=== PATIENT | female | born 1970 | race Two or more races ===

== ENCOUNTER 2024-08-08 15:53 | Outpatient (REF) | payer MEDICAID, SELFPAY ==
--- OUTSIDE RECORDS SUMMARY | 2024-08-08 15:55 | XMS_ITS | Encounter Summary ---
Author Organization [facility] Address [address] [place] [address] Care Team Providers Care Juice Scaleman Name Role Phone Osiris Sanchez MD Primary Care Provider [phone] Jose Mcguire MD Primary Care Provider Gela Vandana Tovar MD Primary Care Provider [phone] Norman Arita MD Primary Care Provider [phone] Encounter Details Date Type Department Care Team (Late st Contact Info) Description 08/24/2006 Orders Only May Internal Medicine [address] [place] [address] Osiris Sanchez MD [address] [place] [id number] Social History Tobacco Use Types Packs/Day Years Used Date Smoking Tobacco: Never Alcohol Use Standard Drinks/Week Comments No 0 (1 standard drink = 0.6 oz pur e alcohol) Comments No Sex and Gender Information Value Date Recorded Sex Assigned at Female 04/12/2020 8:08 AM EST Legal Sex Female 4:49 AM EDT Gender Identity Female 11/03/2019 2:02 PM EDT Sexual Orientation Straight 04/12/2020 8: 08 AM EST 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 Procedure Name Priority Date/Time Associated Diagnosis Comments LIPID PROFILE + FASTING GLUCOSE Routine 08/24/2006 ROUTINE GENERAL MEDICAL EXAMINATION AT A HEALTH CARE FACILITY NEED FOR PROPHYLACTIC VACCINATION WITH TETANUS-DIPHTHERIA (TD) CBC 5 PART DIFF Routine 08/24/2006 ROUTINE GENERAL MEDICAL EXAMINATION AT A HEALTH CARE FACILITY NEED FOR PROPHYLACTIC VACCINATION WITH TETANUS-DIPHTHERIA (TD) documented in this encounter Results * Due to [place] law, this organization might not be sharing negative HIV tests. * (ABNORMAL) LIPID PROFILE + FASTING GLUCOSE (08/24/2006) CHOLESTEROL, TOTAL 195 125 - 200 MG/DL [facility] (CLIA# [id number]) TRIGLYCERIDES 160(H) 30 - 149 MG/DL [facility] (CLIA# [id number]) Glucose 74 65 - 99 MG/DL [facility] (CLIA# [id number]) HDL-CHOLESTEROL 46 40 - 77 MG/DL [facility] (CLIA# [id number]) LDL-CHOLESTEROL 117 62 - 130 MG/DL [facility] (CLIA# [id number]) Comment: RISK CATEGORY: ??LDL-CHOLESTEROL GOAL CHD AND CHD RISK EQUIVALENTS: ??<100 MULTIPLE (2+) FACTORS: ??<130 ZERO TO ONE RISK FACTOR: ??<160 CHD RELATIVE RISK RATIO (TOTAL/HDL) 4.24 0.0 - 5.0 [facility] (CLIA# [id number]) Comment:(0.9 X AVERAGE) 08/24/2006 08/24/2006 12: 43 PM EDT us Osiris Sanchez MD LABORATORY Final Result [facility] (CLIA# [id number]) [address] [place] [address] * (ABNORMAL) CBC 5 PART DIFF (08/24/2006) WHITE BLOOD COUNT 4.6 3.8 - 10.8 THOUS/UL [facility] (CLIA# [id number]) RBC 4.43 3.80 - 5.10 MIL/UL [facility] (CLIA# [id number]) Hemoglobin 13.3 11.7 - 15.5 G/DL [facility] (CLIA# [id number]) HCT (HEMATOCRIT) 38 35.0 - 45.0 % [facility] (CLIA# [id number]) MCV 85 80.0 - 100.0 FL [facility] (CLIA# [id number]) MCH 30 27.0 - 33.0 PG [facility] (CLIA# [id number]) MCHC 35 32.0 - 36.0 G/DL [facility] (CLIA# [id number]) BAND % 0 0 - 5 % [facility] (CLIA# [id number]) NEUTROPHIL % 45(L) 48 - 75 % [facility] (CLIA# [id number]) LYMPHOCYTE % 41(H) 17 - 40 % [facility] (CLIA# [id number]) MONOCYTE % 10 0 - 14 % [facility] (CLIA# [id number]) EOSINOPHIL % 3 0 - 5 % [facility] (CLIA# [id number]) BASOPHIL % 1 0 - 3 % [facility] (CLIA# [id number]) ATYPICAL LYMPHOCYTE % 0 0 - 5 % [facility] (CLIA# [id number]) PLATELETS 151 140 - 400 THOUS/UL [facility] (CLIA# [id number]) BANDS # 0 0 - 750 CELLS/MCL [facility] (CLIA# [id number]) NEUTROPHILS # 2070 1500 - 7800 CELLS/MCL [facility] (CLIA# [id number]) LYMPHOCYTES # 1886 850 - 3900 CELLS/MCL [facility] (CLIA# [id number]) MONOCYTES # 460 200 - 950 CELLS/MCL [facility] (CLIA# [id number]) EOSINOPHILS # 138 15 - 550 CELLS/MCL [facility] (CLIA# [id number]) BASOPHILS # 46 0 - 200 CELLS/MCL [facility] (CLIA# [id number]) ATYPICAL LYMPHOCYTES # 0 0 - 200 /UL [facility] (CLIA# [id number]) RDW 13.2 11.0 - 15.0 % [facility] (CLIA# [id number]) MPV 9.5 7.5 - 11.5 FL [facility] (CLIA# [id number]) 08/24/2006 08/24/2006 12: 43 PM EDT us Osiris Sanchez MD LAB SAME DAY RESULT Final Resul t [facility] (CLIA# [id number]) [address] [place] [address] documented in this encounter Visit Diagnoses Diagnosis ROUTINE GENERAL MEDICAL EXAMINATION AT A HEALTH CARE FACILITY Routine general medical examination at a health care facility NEED FOR PROPHYLACTIC VACCINATION WITH TETANUS-DIPHTHERIA (TD) Need for prophylactic vaccination with tetanus-diphtheria (Td) documented in this encounter Additional Health Concerns Infection Onset Date Last Indicated Resolved Time COVID-19 Rule-Out 01/13/2020 01/13/2020 01/13/2020 2:43 PM EST COVID-19 Rule-Out 02/22/2020 02/22/2020 02/22/2020 5:30 PM EST COVID-19 Confirmed 02/22/2020 02/22/2020 1 8:12 PM EDT COVID-19 Confirmed 03/09/2021 03/09/2021 2 8:12 PM EDT documented as of this encounter Care Teams Juice Scaleman Relationship Specialty Start Date End Date Osiris Sanchez MD [address] [place] [id number] PCP - General 07/24/06 06/09/15 Jose Mcguire MD PCP - General Internal Medicine 06/10/15 05/19/19 Vandana Pierce MD PCP - General Family Medicine 05/20/19 08/03/20 Norman Arita MD [address] [place] [address] PCP - General Internal Medicine 08/04/20 03/04/22 documented as of this encounter
== END 2024-08-08 15:54 | disposition home or self-care (01) ==
LOC: HO.MAMMO 15:53
PROVIDERS: PCP Internal Medicine; Visit Provider Internal Medicine
DX: Z12.31 Encounter for screening mammogram for malignant neoplasm of breast (principal)
CPT/HCPCS: 77063; 77067

== ENCOUNTER → 2024-08-08 16:15 | Outpatient (BNV) | payer MEDICAID, SELFPAY | PROVIDERS: PCP Internal Medicine; Visit Provider Internal Medicine | DX: Z12.31 Encounter for screening mammogram for malignant neoplasm of breast (principal) | CPT/HCPCS: 77063; 77067 ==

== ENCOUNTER 2024-09-13 10:05 | Outpatient (REF) | payer MEDICAID, SELFPAY ==
--- OUTSIDE RECORDS SUMMARY | 2024-09-13 10:08 | XMS_ITS | Encounter Summary ---
Author Organization [employer] Address [address] [facility] [address] [place] [address] Care Team Providers Care Performance Improvement Coordinator Name Role Phone Tee Thomas MD Primary Care Prov ider Reason for Visit * Reason Onset Date Comments Nurse Triage 07/14/2024 Encounter Details Date Type Department Care Team (Late st Contact Info) Description 07/14/2024 Telephone [facility] [address] [place] [address] Tee Thomas MD [address] [place] [id number] Nurse Triage Social History Tobacco Use Types Packs/Day Years Used Date Smoking Tobacco: Never Smokeless Tobacco: Never Alcohol Use Standard Drinks/Week Comments Yes 0 (1 standard drink = 0.6 oz pur e alcohol) wine socially Comments Unknown Sex and Gender Information Value Date Recorded Sex Assigned at Female 05/26/2024 11:58 AM EDT Legal Sex Female 2:42 PM EDT Gender Identity Female 05/20/2024 5:38 PM EDT Sexual Orientation Don't know 05/26/2024 11 :58 AM EDT documented as of this encounter Miscellaneous Notes * Telephone Encounter - Kathleen Samayoa RN - 07/14/2024 10:39 AM EDT Images from the original note were not included. [facility] (supporting Tee Chiang, Triage call regarding Pt portal messages. Pt reports sore throat and cough since 07/12/24. Pt reports pain with swallowing and now left ear hurts as well with some itchiness and tingling. Neg for drainage from ear, fever. ASK apt in [facility] 340pm 07/14/24. Pt agrees with disposition. Advised to try salt water gargle but, reports unable to do that at work. Pt is using cough drops. Insurance is verified as active prior to booking. Protocol Used: Sore Throat (Adult) Protocol-Based Disposition: See in Office or Video Visit Today Video visit not offered Positive Triage Questions: * Severe sore throat pain * Earache also present * All higher-acuity triage questions were negative Care Advice Discussed: * Reassurance and Education - Sore Throat * Sore Throat * Drink Plenty of Liquids * Reasons To Call Back - Sore throat is the main symptom and it lasts longer than 48 hours - Sore throat is mild but lasts longer than 4 days - Fever lasts longer than 3 days - You become worse )17 minutes ago (10:19 AM) ANGEL Nevarez, I had another missed call from your clinic. It is not going through as your number shows private on my end. All I need is an appointment as soon as possible due to the pain I???m having swallowing. My ear started to hurt but no fever. [facility] (supporting Tee Chiang MD)52 minutes ago (9:45 AM) ANGEL Jacob, I just had a missed call from the clinic. I am trying to get seen due to sever throat pain and earache. Please don???t call private as my phone does not accept. I need to be seen as soon as possible. Thank you. * Telephone Encounter - Jeanne Maldonado - 07/14/2024 10:28 AM EDT Tc from pt returning call , pt informs is unable tor receive unknown number calls as she suggest not to call her private. [phone] * Telephone Encounter - Manuel Bryson - 07/14/2024 9:18 AM EDT Symptom: Sore Throat Outcome: Schedule an urgent appointment (within 4 hours) or talk to a nurse or provider soon Reason: Trouble drinking The caller accepted this outcome. documented in this encounter Plan of Treatment Not on file documented as of this encounter Visit Diagnoses Not on filedocumented in this encounter Care Teams Performance Improvement Coordinator Relationship Specialty Start Date End Date Tee Thomas MD [address] [place] [id number] PCP - General Internal Medicine 06/25/24 documented as of this encounter
--- OUTSIDE RECORDS SUMMARY | 2024-09-13 10:08 | XMS_ITS | Referral Summary ---
Author Organization [facility] Address [address] [place] [address] Care Team Providers Care [employer] Name Role Phone Norman Arita MD Primary Care Provider [phone] Allergies Active Allergy Reactions Criticality Noted Date Comments Latex Rash 12/13/2021 rash No Known Allergies Behavioral Problems 08/10/19 22 Medications * This document contains information received from the source organization and may not represent a complete record from that organization. adapalene (DIFFERIN) 0.3 % gel Apply every night to all acne, on dry skin 45 g 2 9 4:51 PM EST 04/03/19 18 Active metoprolol succinate XL (TOPROL XL) 50 mg tablet TAKE 1 TABLET BY MOUTH DAILY 30 tablet 5 8 4:58 PM EST 04/13/19 18 Active estradiol (VAGIFEM) 10 mcg tablet INSERT 1 TABLET VAGINALLY TWICE WEEKLY 8 tablet 11 9 7:09 AM EDT 02/01/20 18 Active oxybutynin XL (DITROPAN XL) 5 mg tablet Take 1 tablet (5 mg total) by mouth daily. 30 tablet 2 9 7:21 AM EDT 05/16/19 19 Active atorvastatin (LIPITOR) 20 mg tabletIndication s:Hyperlipidemia , unspecified Take 1 tablet (20 mg total) by mouth daily. 30 tablet 5 0 7:21 AM EST 12/24/19 19 Active acetaminophen (TYLENOL) 325 mg tablet Take 2 tablets (650 mg total) by mouth every 4 hours as needed for pain. 30 tablet 2 12/05/19 19 Active albuterol (PROAIR HFA,VENTOLIN HFA) 90 mcg inhalerIndicatio ns:Unspecified asthma with (acute) exacerbation (HCC) INHALE 2 PUFFS EVERY 4 TO 6 HOURS NEEDED FOR WHEEZING OR SHORTNESS OF BREATH 8.5 g 1 0 5:18 PM EDT 05/22/19 20 Active acyclovir (ZOVIRAX) 400 mg tabletIndication s:Herpesviral infection of urogenital system, unspecified Take 1 tablet (400 mg total) by mouth 3 times a day for 5 days. 15 tablet 10/06/19 20 Active acyclovir (ZOVIRAX) 400 mg tabletIndication s:Herpesviral infection of urogenital system, unspecified Take 1 tablet (400 mg total) by mouth 3 times a day for 5 days. 15 tablet 2 0 8:19 AM EDT 10/29/19 20 Active spironolactone (ALDACTONE) 25 mg tablet Take one tablet (25 mg total) by mouth once daily 90 tablet 0 7:35 AM EST 01/05/20 20 Active amitriptyline (ELAVIL) 10 mg tablet Take one tablet (10 mg total) by mouth every night 90 tablet 3 1 1:42 PM EDT 04/12/19 21 Active amLODIPine (NORVASC) 10 mg tablet Take one tablet (10 mg total) by mouth once a day 30 tablet 5 2 7:23 AM EDT 03/08/19 22 Active spironolactone (ALDACTONE) 25 mg tablet Take 1 tablet (25 mg total) by mouth once a day. 90 tablet 3 2 1:19 PM EDT 03/29/19 22 Active atorvastatin (LIPITOR) 40 mg tablet Take one tablet (40 mg total) by mouth 1 (one) time each day 90 tablet 3 2 1:09 PM EDT 04/19/19 22 Active vitamin D3 25 mcg (1,000 unit) capsule Take by mouth. Active diazePAM (VALIUM) 5 mg tablet Take 1 tablet (5 mg total) by mouth 1 hour before procedure 1 tablet 9 7:10 AM EDT 08/14/19 19 019 Discontinued (Therapy Completed or No Longer Needed) traZODone (DESYREL) 50 mg tablet Take 1 tablet (50 mg total) by mouth nightly if needed for sleep 90 tablet 1:03 PM EST 03/08/19 21 021 Discontinued (External source cancellation ) Active Problems Problem Noted Date Diagnosed Date Positive LOUIS (antinuclear antibody) 12/13/2021 Arthralgia of both hands 12/13/2021 Social History Tobacco Use Types Packs/Day Years Used Date Smoking Tobacco: Never Smokeless Tobacco: Never Tobacco Cessation:Counseling Given: Not Answered Alcohol Use Standard Drinks/Week Comments Not Currently 0 (1 standard drink = 0.6 oz pur e alcohol) Comments Unknown Sex and Gender Information Value Date Recorded Sex Assigned at Female 03/09/2021 10:34 AM EST Legal Sex Female 1:53 PM EDT Gender Identity Female 03/09/2021 10:34 AM EST Sexual Orientation Straight 03/09/2021 10 :34 AM EST Last Filed Vital Signs Vital Sign Reading Time Taken Comments Blood Pressure 115/79 12/13/2021 11:57 AM EDT Pulse 101 12/13/2021 11:57 AM EDT Temperature 37 C (98.6 F) 12/13/2021 11:57 AM EDT Respiratory Rate - - Oxygen Saturation - - Inhaled Oxygen Concentration - - Weight 59 kg (130 lb) 12/13/2021 11:57 AM EDT Height 152.4 cm (5') 12/13/2021 11:57 AM EDT Body Mass Index 25.39 12/13/2021 11:57 AM EDT Plan of Treatment Not on file Insurance [address] [place] [id number] [facility] HMO/POS Care Teams [employer] Relationship Specialty Start Date End Date Norman Arita MD PCP - General Family Medicine 01/12/21
[2024-09-13 10:17] LABS: MANUAL DIFF FLAG NO
[2024-09-13 10:59] LABS: Hematocrit 36.8 % (37.0-47.0); Hemoglobin 12.6 g/dl (12.0-16.0); Imm Gran Abs Auto 0.00 X10*3/uL (0.00-0.03); Imm Gran Pct Auto 0.0 % (0.0-0.4); Lymphocytes Absolute Auto 1.7 X10*3/uL (1.2-4.9); Mean Corpuscular HGB Conc 34.2 g/dl (31.0-35.0); Mean Corpuscular Hemoglobin 28.7 pg (27.0-33.0); Mean Corpuscular Volume 83.8 fL (80.0-98.0); NRBC Abs Auto 0.000 X10*3/uL (0.0-0.012); NRBC Pct Auto 0.0 /100WBC (0.0-0.2); Platelet Count 161 X10*3/uL (160-400); Red Blood Count 4.39 X10*6/uL (4.20-5.50); White Blood Count 4.3 X10*3/uL (4.8-10.8)
[2024-09-13 11:10] LABS: Hemoglobin A1C 109.8449 umol/L; Total Hemoglobin (HGBA1C) 3271.3364 umol/L
[2024-09-13 11:40] LABS: Alanine Aminotransferase 29 U/L (0-31); Albumin Level 4.5 g/dL (3.5-5.0); Alkaline Phosphatase 117 U/L (39-117); Anion Gap 11 (12-20); Aspartate Amino Transferase 32 U/L (5-31); Blood Urea Nitrogen 12 mg/dL (9-16); Calcium 9.8 mg/dL (8.4-10.2); Carbon Dioxide 28 mmol/L (22-29); Chloride 105 mmol/L (96-108); Cholesterol 177 mg/dL (<200); Estimated Glomerular Filt Rate > 60; HDL Cholesterol 41 mg/dL (>40); Potassium 4.2 mmol/L (3.3-5.1); Sodium 140 mmol/L (135-145); Total Protein 7.7 g/dL (6.5-8.0); Triglycerides 121 mg/dL (<150)
[2024-09-13 11:51] LABS: HIV Num 1 0.07 S/CO (0.00-0.99); ~HepC Num1 0.13 S/CO (0.00-0.79); ~Hepatitis C Antibody Nonreactive (Nonreactive)
== END 2024-09-13 10:06 | disposition home or self-care (01) ==
LOC: HO.LAB 10:05
PROVIDERS: PCP Internal Medicine; Visit Provider Internal Medicine
DX: I10 Essential (primary) hypertension (principal); Z11.4 Encounter for screening for human immunodeficiency virus [HIV]; Z11.59 Encounter for screening for other viral diseases
CPT/HCPCS: 36415; 80053; 80061; 83036; 84443; 85025; 86803; 87389

== ENCOUNTER 2024-11-13 11:42 | Outpatient (REF) | payer MEDICAID, SELFPAY ==
--- OUTSIDE RECORDS SUMMARY | 2024-11-13 11:20 | XMS_ITS | Encounter Summary ---
Author Organization [employer] Address [address] [place] [address] Care Team Providers Care Cradle Placer Name Role Phone Tee Thomas MD Primary Care Prov ider Reason for Visit * Reason Comments Abdominal Pain Nausea Encounter Details Date Type Department Care Team ([facility] st Contact Info) Description 11/13/2024 11:20 AM EDT Office Visit [facility] [address] [place] [phone] Kory Hammonds MD [address] [place] [phone] Epigastric pain (Primary Dx) Social History Tobacco Use Types Packs/Day Years Used Date Smoking Tobacco: Never Smokeless Tobacco: Never Tobacco Cessation:Counseling Given: Not Answered Alcohol Use Standard Drinks/Week Comments Yes 0 (1 standard drink = 0.6 oz pur e alcohol) wine socially Depression Answer Date Recorded Patient Health Questionnaire-9 Score 0 09/12/2024 Patient Health Questionnaire-9 Score 0 09/12/2024 Last PHQ-9: Questionnaire Data Not on file 0 09/12/2024 Housing Stability Answer Date Recorded What is your housing situation today? I have stephanie montoya 09/12/[address] you li ve. Do you have problems with any of the following? None of the above 09/12/2024 Food Insecurity Answer Date Recorded Within the past 12 months, y ou worried that your food would run out before you got money to buy more: Never True 09/12/2024 Within the past 12 months,th e food you bought just didn't last and you didn't have enough money to get more: Never True 01/2025 Transportation Answer Date Recorded In the past 12 months, has l ack of transportation kept you from medical appts, meetings, work or from getting things needed for daily living? No 09/12/2024 Utilities Answer Date Recorded In the past 12 months, has t he electric, gas, oil or water company threatened to shut off services in your home? No 09/12/2024 Depression Answer Date Recorded Patient Health Questionnaire-2 Score 0 09/12/2024 Internet Access Answer Date Recorded Internet Access Q1 Yes 09/12/2024 Internet Access Q2 Not on file 09/12/2024 Comments Unknown Sex and Gender Information Value Date Recorded Sex Assigned at Female 05/26/2024 11:58 AM EDT Legal Sex Female 2:42 PM EDT Gender Identity Female 05/20/2024 5:38 PM EDT Sexual Orientation Straight 09/15/2024 2: 09 PM EDT documented as of this encounter Last Filed Vital Signs Vital Sign Reading Time Taken Comments Blood Pressure 131/80 11/13/2024 10:50 AM EDT Pulse 92 11/13/2024 10:50 AM EDT Temperature 36.8 C (98.3 F) 11/13/2024 10:50 AM EDT Respiratory Rate 17 11/13/2024 10:50 AM EDT Oxygen Saturation - - Inhaled Oxygen Concentration - - Weight 57.4 kg (126 lb 9.6 oz) 11/13/2024 10:50 AM EDT Height 154.9 cm (5' 1 ) 11/13/2024 10:50 AM EDT Body Mass Index 23.92 11/13/2024 10:50 AM EDT documented in this encounter Progress Notes * Kory Hammonds MD - 11/13/2024 11:20 AM EDT Subjective History was provided by the patient. Johana Kyle is a 54 y.o. female who presents for evaluation of epigastric pain started early this morning. Pain is not radiating. Woke up at 4am with pain, which has been waxing and waning. Deniesany unusual food consumption. No recent travel. Denies any significant NSAIDs use. Occasional wine drinker, but last drink was about 10 days ago. Also reports nausea, but no vomiting. Denies BRBPR ormelena. Denies F/C. Previously diagnosed with a small hiatal hernia and erosive gastritis based on EGD. Was prescribed Pepcid previously, but did not take. Symptoms improved with lifestyle modification. Previously had EGD x2 in [place] (07/18/2022) and [facility] (06/07/2021) when she was diagnosed with hiatal hernia and erosive gastritis. Denies current GERD symptoms. Also had screening colonoscopy (07/18/2022). Was advised to repeat in 5 years. History of abdominal hysterectomy (2002) due to fibroids and endometriosis. Subsequently had BSO (2004), then laparoscopic lysis of adhesions (2005). 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 Objective Vitals: 11/13/24 1050 BP: 131/80 BP Location: Left arm Patient Position: Sitting BP Cuff Size: Adult Pulse: 92 Resp: 17 Temp: 98.3 ??F (36.8 ??C) TempSrc: Oral Weight: 126 lb 9.6 oz (57.4 kg) Height: 5' 1 (1.549 m) Physical Exam Vitals reviewed. Constitutional: General: She is not in acute distress. Appearance: Normal appearance. She is normal weight. She is not ill-appearing, toxic-appearing or diaphoretic. HENT: Head: Normocephalic and atraumatic. Right Ear: External ear normal. Left Ear: External ear normal. Nose: Nose normal. No congestion or rhinorrhea. Mouth/Throat: Mouth: Mucous membranes are moist. Pharynx: Oropharynx is clear. Posterior oropharyngeal erythema present. No oropharyngeal exudate. Eyes: Extraocular Movements: Extraocular movements intact. Conjunctiva/sclera: Conjunctivae normal. Cardiovascular: Rate and Rhythm: Normal rate and regular rhythm. Heart sounds: Normal heart sounds. Pulmonary: Effort: Pulmonary effort is normal. No respiratory distress. Breath sounds: Normal breath sounds. No wheezing, rhonchi or rales. Chest: Chest wall: No tenderness. Abdominal: General: Abdomen is flat. There is no distension. Palpations: Abdomen is soft. Tenderness: There is abdominal tenderness (epigastric tenderness without rebound or guarding). There is no right CVA tenderness, left CVA tenderness, guarding or rebound. Comments: Negative Deleon's sign; no tenderness at McBurney's point Musculoskeletal: General: Normal range of motion. Cervical back: Neck supple. Skin: General: Skin is warm and dry. Coloration: Skin is not jaundiced. Findings: No rash. Neurological: General: No focal deficit present. Mental Status: She is alert and oriented to person, place, and time. Psychiatric: Mood and Affect: Mood normal. Behavior: Behavior normal. Johana was seen today for abdominal pain and nausea. Diagnoses and all orders for this visit: Epigastric pain (Primary) - CBC auto differential; Future - Comprehensive Metabolic Panel; Future - Amylase; Future - Lipase; Future - Helicobacter pylori Antigen, EIA, Stool; Future - omeprazole OTC (PriLOSEC OTC) 20 MG EC tablet; Take 1 tab po BID for 14 days. Patient presents to [facility] due to epigastric abdominal pain started this AM No clinical evidence of acute abdomen Suspect gastritis vs PUD Previously diagnosed with hiatal hernia and erosive gastritis on EGD 2-3 years ago Previously had GERD symptoms, but improved after lifestyle modification Not currently on H2 nishant or PPI Denies any GI bleeding symptoms Pain not worsened or improved by food intake No significant NSAIDs or alcohol consumption Will start Omeprazole 20mg PO BID for 14 days Check CBC, CMP, Amylase, Lipase, and H pylori Stool Ag Indications for UC/ER use reviewed Advised to contact the clinic if persistent or worsening symptoms Work note provided documented in this encounter Plan of Treatment Scheduled Orders Name Type Priority Associated Diagnoses Orde r Schedule Helicobacter pylori Antigen, EIA, Stool Lab Routine Epigastric pain Expected: 11/13/2024, Expires: 11/13/2025 documented as of this encounter Procedures Procedure Name Priority Date/Time Associated Diagnosis Comments CBC WITH AUTO DIFFERENTIAL Routine 11/13/2024 11:52 AM EDT Epigastric pain LIPASE Routine 11/13/2024 11:52 AM EDT Epigastric pain AMYLASE Routine 11/13/2024 11:52 AM EDT Epigastric pain COMPREHENSIVE METABOLIC PANEL Routine 11/13/2024 11:52 AM EDT Epigastric pain documented in this encounter Results * Lipase (11/13/2024 11:52 AM EDT) Lipase 25 8 - 78 U/L [facility] Blood Venous blood specimen / Unknown 11/13/2024 11:52 AM EDT 11/13/2024 1:03 PM EDT Kory Hammonds MD LAB BLOOD ORDERABLES Final Resul t Performing Organization Address [facility] Co de Phone Number [facility] [address] [place] [phone] * Amylase (11/13/2024 11:52 AM EDT) Amylase 78 28 - 100 U/L [facility] Blood Venous blood specimen / Unknown 11/13/2024 11:52 AM EDT 11/13/2024 1:03 PM EDT us Kory Hammonds MD LAB BLOOD ORDERABLES Final Resul t Performing Organization Address [facility] de Phone Number [facility] [address] [place] [phone] * (ABNORMAL) Comprehensive Metabolic Panel (11/13/2024 11:52 AM EDT) Sodium 140 135 - 145 mmol/L [facility] Potassium 3.9 3.3 - 5.1 mmol/L [facility] Chloride 103 96 - 108 mmol/L [facility] Carbon Dioxide 30(H) 22 - 29 mmol/L [facility] Anion Gap 11(L) 12 - 20 [facility] Urea Nitrogen (BUN) 8(L) 9 - 16 mg/dL [facility] Creatinine, Serum 0.75 0.5 - 1.4 mg/dL [facility] Estimated Glomerular Filt Rate >60 [facility] Comment:Chronic Kidney Disea se: Estimated GFR < 60 mL/min/[id number] Kidney Disease: Estimated GFR < 15 mL/min/1.73m2 Glucose 85 60 - 115 mg/dL [facility] Calcium 9.7 8.4 - 10.2 mg/dL [facility] Bilirubin, Total 1.0 0.0 - 1.0 mg/dL [facility] Aspartate Amino Transferase 46(H) 5 - 31 U/L [facility] Alanine Aminotransferase 40(H) 0 - 31 U/L [facility] Total Protein 8.1(H) 6.5 - 8.0 g/dL [facility] Albumin Level 4.6 3.5 - 5.0 g/dL [facility] Alkaline Phosphatase 126(H) 39 - 117 U/L [facility] Blood Venous blood specimen / Unknown 11/13/2024 11:52 AM EDT 11/13/2024 1:03 PM EDT us Kory Hammonds MD LAB BLOOD ORDERABLES Final Resul t [facility] [address] [place], [place] [phone] * (ABNORMAL) CBC auto differential (11/13/2024 11:52 AM EDT) White Blood Count 6.0 4.8 - 10.8 X10*3/uL [facility] Red Blood Count 4.70 4.20 - 5.50 X10*6/uL [facility] Hemoglobin 13.3 12.0 - 16.0 g/dl [facility] Hematocrit 40.3 37.0 - 47.0 % [facility] Mean Corpuscular Volume 85.7 80.0 - 98.0 fL [facility] Mean Corpuscular Hemoglobin 28.3 27.0 - 33.0 pg [facility] Mean Corpuscular HGB Conc 33.0 31.0 - 35.0 g/dl [facility] Red Cell Distribution Width 13.4 11.0 - 16.0 % [facility] Platelet Count 170 160 - 400 X10*3/uL [facility] Mean Platelet Volume 11.5 9.4 - 12.3 fL [facility] Neutrophils Percent Auto 52.8 45 - 73 % [facility] Imm Gran Pct Auto 0.2 0.0 - 0.4 % [facility] Lymphocytes Percent Auto 30.0 20 - 40 % [facility] Monocytes Percent Auto 9.7 2 - 11 % [facility] Eosinophils Percent Auto 7.0(H) 0 - 4 % [facility] Basophils Percent Auto 0.3 0 - 2 % [facility] NRBC Pct Auto 0.0 0.0 - 0.2 /100WBC [facility] Neutrophils Absolute Auto 3.2 2.0 - 8.3 x10*3/uL [facility] Imm Gran Abs Auto 0.01 0.00 - 0.03 X10*3/uL [facility] Lymphocytes Absolute Auto 1.8 1.2 - 4.9 X10*3/uL [facility] Monocytes Absolute Auto 0.6 0.1 - 1.2 X10*3/uL [facility] Eosinophils Absolute Auto 0.4 0.0 - 0.4 X10*3/uL [facility] Basophils Absolute Auto 0.0 0.0 - 0.2 X10*3/uL [facility] NRBC Abs Auto 0.000 0.0 - 0.012 X10*3/uL [facility] Blood Venous blood specimen / Unknown 11/13/2024 11:52 AM EDT 11/13/2024 1:03 PM EDT us Kory Hammonds MD LAB BLOOD ORDERABLES Final Resul t [facility] [address] [place] [phone] documented in this encounter Visit Diagnoses Diagnosis Epigastric pain- Primary Abdominal pain, epigastric documented in this encounter Additional Health Concerns Assessment Noted Time PHQ-9 Depression Total Score: 0 09/13/19 25 9:51 AM EDT documented as of this encounter Care Teams Cradle Placer Relationship Specialty Start Date End Date Tee Thomas MD [address] [place] [phone] PCP - General Internal Medicine 06/25/24 documented as of this encounter
[2024-11-13 13:07] LABS: MANUAL DIFF FLAG NO
[2024-11-13 13:22] LABS: Hematocrit 40.3 % (37.0-47.0); Hemoglobin 13.3 g/dl (12.0-16.0); Imm Gran Abs Auto 0.01 X10*3/uL (0.00-0.03); Imm Gran Pct Auto 0.2 % (0.0-0.4); Lymphocytes Absolute Auto 1.8 X10*3/uL (1.2-4.9); Mean Corpuscular HGB Conc 33.0 g/dl (31.0-35.0); Mean Corpuscular Hemoglobin 28.3 pg (27.0-33.0); Mean Corpuscular Volume 85.7 fL (80.0-98.0); NRBC Abs Auto 0.000 X10*3/uL (0.0-0.012); NRBC Pct Auto 0.0 /100WBC (0.0-0.2); Platelet Count 170 X10*3/uL (160-400); Red Blood Count 4.70 X10*6/uL (4.20-5.50); White Blood Count 6.0 X10*3/uL (4.8-10.8)
[2024-11-13 13:45] LABS: Alanine Aminotransferase 40 U/L (0-31); Albumin Level 4.6 g/dL (3.5-5.0); Alkaline Phosphatase 126 U/L (39-117); Anion Gap 11 (12-20); Aspartate Amino Transferase 46 U/L (5-31); Blood Urea Nitrogen 8 mg/dL (9-16); Calcium 9.7 mg/dL (8.4-10.2); Carbon Dioxide 30 mmol/L (22-29); Chloride 103 mmol/L (96-108); Estimated Glomerular Filt Rate > 60; Lipase 25 U/L (8-78); Potassium 3.9 mmol/L (3.3-5.1); Sodium 140 mmol/L (135-145); Total Protein 8.1 g/dL (6.5-8.0)
[2024-11-13 14:54] LABS: Amylase 78 U/L (28-100)
--- OUTSIDE RECORDS SUMMARY | 2024-11-13 16:05 | XMS_ITS | Encounter Summary ---
Author Organization [facility] Address [address] [place] [address] Care Team Providers Care Interventional Physiatrist Name Role Phone Osiris Sanchez MD Primary Care Provider [phone] Jose Mcguire MD Primary Care Provider Gela Vandana Tovar MD Primary Care Provider [phone] Norman Arita MD Primary Care Provider [phone] Encounter Details Date Type Department Care Team (Late st Contact Info) Description 10/05/2011 Orders Only May Internal Medicine [address] [place] [phone] Osiris Sanchez MD [address] [place] [phone] Social History Tobacco Use Types Packs/Day Years [...] 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 Will d/w patient at next appt.10/16 documented in this encounter Plan of Treatment Not on file documented as of this encounter Procedures * Due to [place] Work[employer] law, this organization might not be sharing negative HIV tests. Procedure Name Priority Date/Time Associated Diagnosis Comments TSH, 3RD GENERATION Routine 10/05/2011 7 :16 AM EDT T4, FREE, SERUM Routine 10/05/2011 7:16 AM EDT Disorder of thyroid LIPID PANEL WITH REFLEX TO DIRECT LDL Routine 10/05/2011 7:16 AM EDT Hyperlipidemia documented in this encounter Results * Due to [place] Work[employer] law, this organization might not be sharing negative HIV tests. * TSH, 3RD GENERATION (10/05/2011 7:16 AM EDT) TSH 1.06 mIU/L [facility] Comment: {TSH {[id number]) Reference Range > or = 20 Years 0.40-4.50 Ranges First trimester 0.26-2.66 Second trimester 0.55-2.73 Third trimester 0.43-2.91 10/05/2011 7:16 AM EDT 10/05/2011 2:25 PM EDT Osiris Sanchez MD LABORATORY Final Result [facility] [address] [place] [address] * T4, FREE, SERUM (10/05/2011 7:16 AM EDT) FT4 1.4 0.8 - 1.8 ng/dL [facility] Comment:{T4, FREE {[id number]) 10/05/2011 7:16 AM EDT 10/05/2011 2:25 PM EDT Narrative Resulting Agency Comment [id number] Osiris Sanchez MD LABORATORY Final Result Performing Organization Address [facility] Co de Phone Number [facility] [address] [place] [address] * (ABNORMAL) LIPID PANEL WITH REFLEX TO DIRECT LDL (10/05/2011 7:16 AM EDT) Cholesterol 200 125 - 200 mg/dL [facility] Comment:{CHOLESTEROL, TOTAL {[id number]) HDL Cholesterol 44(L) > OR = 46 mg/dL [facility] Comment:{HDL CHOLESTEROL {[id number]) Triglyceride 128 <150 mg/dL [facility] Comment:{TRIGLYCERIDES {[id number]) LDL Cholesterol 130(H) <130 mg/dL (calc) [facility] Comment: {LDL-CHOLESTEROL {[id number]) Desirable range <100 mg/dL for patients with CHD or diabetes and <70 mg/dL for diabetic patients with known heart disease. CHOL/HDL Ratio 4.5 < OR = 5.0 (calc) [facility] Comment:{CHOL/HDLC RATIO {[id number]) Cholesterol Non-HDL 156 mg/dL (calc) [facility] Comment: {NON-HDL CHOLESTEROL {[id number]) Target for non-HDL cholesterol is 30 mg/dL higher than LDL cholesterol target. 10/05/2011 7:16 AM EDT 10/05/2011 2:25 PM EDT Narrative Resulting Agency Comment [id number] us Osiris Sanchez MD LABORATORY Final Result Performing Organization Address [facility] Co de Phone Number [facility] [address] [place] [address] documented in this encounter Visit Diagnoses Diagnosis Hyperlipidemia Other and unspecified hyperlipidemia Disorder of thyroid Unspecified disorder of thyroid documented in this encounter Additional Health Concerns Infection Onset Date Last Indicated Resolved Time COVID-19 Rule-Out 01/13/2020 01/13/2020 01/13/2020 2:43 PM EST COVID-19 Rule-Out 02/22/2020 02/22/2020 02/22/2020 5:30 PM EST COVID-19 Confirmed 02/22/2020 02/22/2020 1 8:12 PM EDT COVID-19 Confirmed 03/09/2021 03/09/2021 2 8:12 PM EDT documented as of this encounter Care Teams Interventional Physiatrist Relationship Specialty Start Date End Date Osiris Sanchez MD [address] [place] [address] PCP - General 07/24/06 06/09/15 Jose Mcguire MD PCP - General Internal Medicine 06/10/15 05/19/19 Vandana Pierce MD PCP - General Family Medicine 05/20/19 08/03/20 Norman Arita MD [address] [place] [address] PCP - General Internal Medicine 08/04/20 03/04/22 documented as of this encounter
--- OUTSIDE RECORDS SUMMARY | 2024-11-13 16:05 | XMS_ITS | Encounter Summary ---
Author Organization [facility] Address [address] [place] [address] Care Team Providers Care Superintendent [employer] Name Role Phone Norman Arita MD Primary Care Provider [phone] Encounter Details Date Type Department Care Team (Late st Contact Info) Description 12/01/2021 Orders Only [facility] [address] [place] [id number] Norman Ariat MD [address] [place] [address] Social History Tobacco Use Types Packs/Day Years Used Date Smoking Tobacco: Never Smokeless Tobacco: Never Alcohol Use Standard Drinks/Week Comments Yes 0 (1 standard drink = 0.6 oz pur e alcohol) socially PHQ-2 [facility] (Range 0-6) 0 03/07/2021 Comments No Sex and Gender Information Value Date Recorded Sex Assigned at Female 04/12/2020 8:08 AM EST Legal Sex Female 4:49 AM EDT Gender Identity Female 11/03/2019 2:02 PM EDT Sexual Orientation Straight 04/12/2020 8: 08 AM EST 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 I will refer patient to rheumatology for further evaluation * Result Encounter Note - Venus Ramírez - 12/01/2021 11:27 AM EDT See TE - MCM sent documented in this encounter Plan of Treatment Not on file documented as of this encounter Goals Goal Patient Goal Type Associated Problems Recent Progress Patient-Stated? Author Blood Pressure < 140/90 Blood Pressure 135/89(2021 1:46 PM EDT) No Norman Arita MD Note: Above is your goal for blood pressure control. You may be able to prevent, reduce or eliminate the medication required for your blood pressure by regular measurement of your blood pressure at home, since home readings are often more reliable than measurements at the doctor s office. You can also improve your blood pressure by getting regular exercise, keeping a normal weight, reducing your sodium/salt intake to 2000 mg/day, reducing caffeine and by limiting your alcohol intake. Men should limit consumption to no more than 2 drinks per day (beer, wine, or mixed drinks) and women should limit to one drink per day. Follow the DASH diet, a diet low in fat, cholesterol, red meat, and sweets. It emphasizes fruits, vegetables, and low-fat dairy foods. The DASH diet also includes whole-grain products, fish, poultry, and nuts. documented as of this encounter Procedures * Due to [place] state law, this organization might not be sharing negative HIV tests. Procedure Name Priority Date/Time Associated Diagnosis Comments CELIAC DISEASE COMPREHENSIVE PANEL WITH GLIADIN ANTIBODY (IGG) Routine 12/01/2021 11:27 AM EDT Abnormal LFTs MITOCHONDRIAL ANTIBODY W/REFLEX TO TITER Routine 12/01/2021 11:27 AM EDT Abnormal LFTs LOUIS SCREEN IFA W/REFLEX TO TITER/PATTERN IFA Routine 12/01/2021 11:27 AM EDT Abnormal LFTs THYROID STIMULATING HORMONE (TSH) WITH FREE T4 REFLEX, SERUM Routine 12/01/2021 11:27 AM EDT Abnormal LFTs PROTEIN ELECTROPHORESIS, SERUM (SPEP) Routine 12/01/2021 11:27 AM EDT Abnormal LFTs 5' NUCLEOTIDASE Routine 12/01/2021 11:27 AM EDT Abnormal LFTs IRON PROFILE (IRON/TIBC), SERUM Routine 12/01/2021 11:27 AM EDT Abnormal LFTs ACTIN (SMOOTH MUSCLE)ANTIBODY (IGG) Routine 12/01/2021 11:27 AM EDT Abnormal LFTs GGT Routine 12/01/2021 11:27 AM EDT Abnormal LFTs FERRITIN Routine 12/01/2021 11:27 AM EDT Abnormal LFTs VENIPUNCTURE Routine 12/01/2021 11:27 AM EDT Abnormal LFTs ALDOLASE Routine 12/01/2021 11:27 AM EDT Abnormal LFTs HEPATITIS PANEL, ACUTE W/REFLEX Routine 12/01/2021 11:27 AM EDT Abnormal LFTs documented in this encounter Results * Due to [place] state law, this organization might not be sharing negative HIV tests. * HEPATITIS PANEL, ACUTE W/REFLEX (12/01/2021 11:27 AM EDT) Hepatitis A virus Ab.IgM NON-REACT JESSICA NON-REACT JESSICA [employer] Comment: For additional information, please refer to http://education.M.[employer]/faq/HNM113 (This link is being provided for informational/ educational purposes only.) Hepatitis B virus surface Ag NON-REACT JESSICA NON-REACT JESSICA [facility] Hepatitis B virus core Ab.IgM NON-REACT JESSICA NON-REACT JESSICA [facility] Hepatitis C virus Ab NON-REACT JESSICA NON-REACT JESSICA [facility] Hepatitis C virus Ab Signal/Cutoff 0.14 <1.00 [facility] Comment: HCV antibody was non-reactive. There is no laboratory evidence of HCV infection. In most cases, no further action is required. However, if recent HCV exposure is suspected, a test for HCV RNA (test code 52216) is suggested. For additional information please refer to http://education.[employer]/faq/LPP82o6 (This link is being provided for informational/ educational purposes only.) 12/01/2021 11:2 7 AM EDT 12/01/2021 7:04 PM EDT Narrative Resulting Agency Comment [id number] Norman Arita MD LABORATORY Final Result Performing Organization Address [facility] de Phone Number [facility] [address] [phone] * GGT (12/01/2021 11:27 AM EDT) Gamma glutamyl transferase 53 3 - 70 U/L [facility] 12/01/2021 11:2 7 AM EDT 12/01/2021 7:04 PM EDT Narrative Resulting Agency Comment [id number] Norman Arita MD LABORATORY Final Result Performing Organization Address [facility] de Phone Number [facility] [address] [phone] * 5' NUCLEOTIDASE (12/01/2021 11:27 AM EDT) 5'-Nucleotidas e 7 0 - 10 U/L [facility] 12/01/2021 11:2 7 AM EDT 12/01/2021 7:04 PM EDT Narrative Resulting Agency Comment [id number] Norman Arita MD LABORATORY Final Result [facility] [address] [place] [address] * (ABNORMAL) LOUIS SCREEN IFA W/REFLEX TO TITER/PATTERN IFA (12/01/2021 11:27 AM EDT) LOUIS IFA POSITIVE( A) NEGATIVE [facility] Comment: LOUIS IFA is a first line screen for detecting the presence of up to approximately 150 autoantibodies in various autoimmune diseases. A positive LOUIS IFA result is suggestive of autoimmune disease and reflexes to titer and pattern. Further laboratory testing may be considered if clinically indicated. For additional information, please refer to http://education.Gist/faq/ESP792 (This link is being provided for informational/ educational purposes only.) Anti-Nuclear Ab Titer 1:1280(H) titer [facility] Comment: Reference Range <1:40 Negative 1:40-1:80 Low Antibody Level >1:80 Elevated Antibody Level LOUIS Pattern Cytoplasm ic, Rods and Rings(A) [facility] Comment: Distinct agustina and ring structures in the cytoplasm of interphase cells. Pattern is seen in hepatitis C patients post-IFN/ribavirin therapy, rarely in systemic lupus erythematosus (SLE), Aguila's thyroiditis, and may be found in healthy persons. AC-23: Rods and Rings International Consensus on LOUIS Patterns (https://doi.org/10.1515/dlwg-6261-5050) Anti-Nuclear Ab Titer 1:320(H) titer [facility] Comment: Reference Range <1:40 Negative 1:40-1:80 Low Antibody Level >1:80 Elevated Antibody Level LOUIS Pattern Nuclear, Nucleolar (A) [facility] Comment: Nucleolar pattern is associated with systemic sclerosis (scleroderma), systemic sclerosis/polymyositis overlap and Sjogren's syndrome. AC-8,9,10: Nucleolar International Consensus on LOUIS Patterns (https://doi.org/10.1515/tfbu-2321-0281) Anti-Nuclear Ab Titer 1:160(H) titer [facility] Comment: Reference Range <1:40 Negative 1:40-1:80 Low Antibody Level >1:80 Elevated Antibody Level LOUIS Pattern Nuclear, Homogeneo us(A) [facility] Comment: Homogeneous pattern is associated with systemic lupus erythematosus (SLE), drug-induced lupus and juvenile idiopathic arthritis. AC-1: Homogeneous International Consensus on LOUIS Patterns (https://doi.org/10.1515/jlkz-0436-8532) 12/01/2021 11:2 7 AM EDT 12/01/2021 7:04 PM EDT Narrative Resulting Agency Comment [id number] Norman Arita MD LABORATORY Final Result Performing Organization Address [facility] Phone Number [facility] [address] [phone] * MITOCHONDRIAL ANTIBODY W/REFLEX TO TITER (12/01/2021 11:27 AM EDT) Mitochondria Ab NEGATIVE NEGATIVE [facility] 12/01/2021 11:2 7 AM EDT 12/01/2021 7:04 PM EDT Narrative Resulting Agency Comment [id number] Norman Arita MD LABORATORY Final Result Performing Organization Address [facility] Phone Number [facility] [address] [phone] * (ABNORMAL) ACTIN (SMOOTH MUSCLE)ANTIBODY (IGG) (12/01/2021 11:27 AM EDT) Actin.smooth muscle Ab.IgG 35(H) <20 U [facility] Comment: Reference Range: <20 U: Negative >or=20 U: Positive Antibodies recognizing actin are the main component of smooth muscle antibodies associated with auto- immune liver disease. Actin antibodies are found in approximately 75% of patients with autoimmune hepatitis (AIH) type 1, approximately 65% of patients with autoimmune cholangitis, approximately 30% of patients with primary biliary cirrhosis and approximately 2% of healthy controls. High values are closely correlated with AIH type 1. 12/01/2021 11:2 7 AM EDT 12/01/2021 7:04 PM EDT Narrative Resulting Agency Comment [id number] Norman Arita MD LABORATORY Final Result Performing Organization Address [facility] Co de Phone Number [facility] [address] [place] [address] * ALDOLASE (12/01/2021 11:27 AM EDT) Aldolase 1.9 <=8.1 U/L [facility] 12/01/2021 11:2 7 AM EDT 12/01/2021 7:04 PM EDT Narrative Resulting Agency Comment [id number] Norman Arita MD LABORATORY Final Result Performing Organization Address [facility] Co de Phone Number [facility] [address] [place] [address] * PROTEIN ELECTROPHORESIS, SERUM (SPEP) (12/01/2021 11:27 AM EDT) Pathologist [facility] Protein Total (Serum) 8.1 6.1 - 8.1 g/dL [facility] Albumin 4.4 3.8 - 4.8 g/dL [facility] Alpha 1 globulin 0.3 0.2 - 0.3 g/dL [facility] Alpha 2 globulin 0.9 0.5 - 0.9 g/dL [facility] Beta 1 globulin 0.5 0.4 - 0.6 g/dL [facility] Beta 2 globulin 0.5 0.2 - 0.5 g/dL [facility] Gamma globulin 1.5 0.8 - 1.7 g/dL [facility] Protein pattern SEE NOTE [facility] Comment:Normal Electrophoret ic Pattern 12/01/2021 11:2 7 AM EDT 12/01/2021 7:04 PM EDT Narrative Resulting Agency Comment [id number] Norman Arita MD LABORATORY Final Result Performing Organization Address [facility] Co de Phone Number [facility] [address] [place] [address] * IRON PROFILE (IRON/TIBC), SERUM (12/01/2021 11:27 AM EDT) Pathologist [facility] Iron 54 45 - 160 mcg/dL [facility] Iron binding capacity 344 250 - 450 mcg/dL (calc) [facility] Iron saturation 16 16 - 45 % (calc) [facility] 12/01/2021 11:2 7 AM EDT 12/01/2021 7:04 PM EDT Narrative Resulting Agency Comment [id number] Norman Arita MD LABORATORY Final Result [facility] [address] [place] [address] * FERRITIN (12/01/2021 11:27 AM EDT) Ferritin 230 16 - 232 ng/mL [facility] 12/01/2021 11:2 7 AM EDT 12/01/2021 7:04 PM EDT Narrative Resulting Agency Comment [id number] Norman Arita MD LABORATORY Final Result [facility] [address] [place] [address] * (ABNORMAL) CELIAC DISEASE COMPREHENSIVE PANEL WITH GLIADIN ANTIBODIES(IGG) (12/01/2021 11:27 AM EDT) Pathologist [facility] Service comment 01 SEE NOTE [facility] Comment: No serological evidence for celiac disease is present. tTg may normalize in individuals with celiac disease who maintain a gluten free diet. If high suspicion of celiac disease, consider HLA DQ2 and DQ8 testing to rule out celiac disease. (TTG) AB, IGA <1.0 U/mL [facility] Comment: Value Interpretation ----- <15.0 Antibody not detected > or = 15.0 Antibody detected IgA 312(H) 47 - 310 mg/dL [facility] 12/01/2021 11:2 7 AM EDT 12/01/2021 7:04 PM EDT Narrative Resulting Agency Comment [id number] Norman Arita MD LABORATORY Final Result [facility] [address] [place] [address] * THYROID STIMULATING HORMONE (TSH) WITH FREE T4 REFLEX, SERUM (12/01/2021 11:27 AM EDT) TSH 1.12 mIU/L [facility] Comment: Reference Range > or = 20 Years 0.40-4.50 Ranges First trimester 0.26-2.66 Second trimester 0.55-2.73 Third trimester 0.43-2.91 12/01/2021 11:2 7 AM EDT 12/01/2021 7:04 PM EDT Narrative Resulting Agency Comment [id number] Norman Arita MD LABORATORY Final Result Performing Organization Address City/[facility] Co de Phone Number [facility] [address] [place] [address] * CREATINE KINASE (CK), SERUM (12/01/2021 11:27 AM EDT) CPK 117 29 - 143 U/L [facility] 12/01/2021 11:2 7 AM EDT 12/01/2021 7:04 PM EDT Narrative Resulting Agency Comment [id number] Norman Arita MD LAB SAME DAY RESULT Final Result Performing Organization Address [facility] de Phone Number [facility] [address] [place] [address] documented in this encounter Visit Diagnoses Diagnosis Abnormal LFTs Other abnormal blood chemistry documented in this encounter Care Teams Superintendent [employer] Relationship Specialty Start Date End Date Norman Arita MD [address] [place] [address] PCP - General Internal Medicine 08/04/20 03/04/22 documented as of this encounter
--- OUTSIDE RECORDS SUMMARY | 2024-11-13 16:05 | XMS_ITS | Encounter Summary ---
Author Organization [facility] Address [address] [place] [address] Care Team Providers Care Float Nurse Name Role Phone Osiris Sanchez MD Primary Care Provider [phone] Jose Mcguire MD Primary Care Provider Gela Vandana Tovar MD Primary Care Provider [phone] Norman Arita MD Primary Care Provider [phone] Encounter Details Date Type Department Care Team (Late st Contact Info) Description 11/02/2006 Orders Only [facility] [address] [place] [address] Jose Mcguire MD Social History Tobacco Use Types Packs/Day Years [...] Industry Job Start Date Job End Date [employer] Not on file Not on file Not on file documented as of this encounter Plan of Treatment Not on file documented as of this encounter Procedures * Due to [place] state law, this organization might not be sharing negative HIV tests. Procedure Name Priority Date/Time Associated Diagnosis Comments BASIC METABOLIC PANEL Routine 11/02/2006 VAGINAL DISCHARGE CHLAMYDIA TRACHOMATIS/N. GONORRHOEAE (GC), SDA (GENITAL SWAB) Routine 11/02/2006 VAGINAL DISCHARGE GC DNA PROBE (GEN-PROBE, GC) Routine 11/02/2006 VAGINAL DISCHARGE CHANI PREP Routine 11/02/2006 VAGINAL DISCHARGE CULTURE, URINE Routine 11/02/2006 DYSURIA URINALYSIS,MICROSCOPIC ONLY Routine 11/02/2006 URINALYSIS, DIP ONLY ( SITE STAT ONLY) Routine 11/02/2006 DYSURIA documented in this encounter Results * Due to [place] state law, this organization might not be sharing negative HIV tests. * URINALYSIS,MICROSCOPIC ONLY (11/02/2006) WBC (URINE) 0-4 0-4/HPF [facility] (CLIA# [id number]) RBC (Urine Sed) 0 0-3/HPF [facility] (CLIA# [id number]) EPITHELIAL CELLS.SQUAMOUS (URINE SED) 0-5 0-5/HPF [facility] (CLIA# [id number]) EPITHELIAL CELLS.TRANSITIO NAL (URINE SED) 0 0-5/HPF [facility] (CLIA# [id number]) EPITHELIAL CELLS.RENAL (URINE SED) 0 0-3/HPF [facility] (CLIA# [id number]) BACTERIA (URINE) NONE SEEN NONE SEEN [facility] (CLIA# [id number]) 11/02/2006 11/02/2006 4:1 2 PM EDT us Jose Mcguire MD LAB SAME DAY RESULT Final Resul t [facility] (CLIA# [id number]) [address] [place] [address] * GC DNA PROBE (GEN-PROBE, GC) (11/02/2006) [facility] GC DNA PROBE SEE TEXT [facility] (CLIA# [id number]) Comment: SOURCE: ENDOCERVIX NEGATIVE 11/02/2006 11/02/2006 4:0 4 PM EDT Jose Mcguire MD LABORATORY Final Result [facility] (CLIA# [id number]) [address] [place] [address] * (ABNORMAL) CHANI PREP (11/02/2006) [facility] FUNGUS (CHANI WET PREP) SEE TEXT(A) [facility] (CLIA# [id number]) Comment: SOURCE: UNKNOWN YEAST, POSITIVE NO CLUE CELLS PRESENT 11/02/2006 11/02/2006 4:0 4 PM EDT Jose Mcguire MD LABORATORY Final Result Performing Organization Address City/[facility]/ZIP Co de Phone Number [facility] (CLIA# [id number]) [address] [place] [address] * CHLAMYDIA TRACHOMATIS/N. GONORRHOEAE, DNA, SDA (11/02/2006) [facility] CHLAMYDIA TRACHOMATIS DNA TNP [facility] (CLIA# [id number]) NEISSERIA GONORRHOEAE DNA TNP [facility] (CLIA# [id number]) 11/02/2006 11/02/2006 4:0 4 PM EDT Jose Mcguire MD LABORATORY Final Result [facility] (CLIA# [id number]) [address] [place] [address] * BASIC METABOLIC PANEL (11/02/2006) CALCIUM 9.4 8.6 - 10.2 MG/DL [facility] (CLIA# [id number]) BUN 7 7 - 25 MG/DL [facility] (CLIA# [id number]) CREATININE 0.7 0.5 - 1.2 MG/DL [facility] (CLIA# [id number]) BUN/Creatinine Ratio 10 6 - 25 [facility] (CLIA# [id number]) Glucose 82 65 - 99 MG/DL [facility] (CLIA# [id number]) SODIUM 139 135 - 146 MMOL/L [facility] (CLIA# [id number]) POTASSIUM 3.8 3.5 - 5.3 MMOL/L [facility] (CLIA# [id number]) CHLORIDE 105 98 - 110 MMOL/L [facility] (CLIA# [id number]) CARBON DIOXIDE 24 21 - 33 MMOL/L [facility] (CLIA# [id number]) 11/02/2006 11/02/2006 4:0 4 PM EDT Jose Mcguire MD LAB SAME DAY RESULT Final Resul t Performing Organization Address City/[facility]/ZIP Co de Phone Number [facility] (CLIA# [id number]) [address] [place] [address] * CULTURE, URINE (11/02/2006) URINE CULTURE CLEAN VOID SEE TEXT [facility] (CLIA# [id number]) Comment: SOURCE: URINE NO GROWTH 11/02/2006 11/02/2006 4:1 2 PM EDT Jose Mcguire MD LABORATORY Final Result Performing Organization Address City/[facility]/ZIP Co de Phone Number [facility] (CLIA# [id number]) [address] [place] [address] * URINALYSIS, DIP ONLY ( SITE STAT ONLY) (11/02/2006) COLOR (URINE) YELLOW YELLOW [facility] (CLIA# [id number]) APPEARANCE (URINE) CLEAR CLEAR [facility] (CLIA# [id number]) SPECIFIC GRAVITY 1.020 1.001 - 1.035 [facility] (CLIA# [id number]) PH (URINE) 6.0 5.0 - 8.0 [facility] (CLIA# [id number]) PROTEIN (URINE) TRACE NEG FC [facility] (CLIA# [id number]) GLUCOSE (URINE) NEG NEG FC [facility] (CLIA# [id number]) Ketones (Urine) NEG NEG FC [facility] (CLIA# [id number]) BILIRUBIN (URINE) NEG NEG [facility] (CLIA# [id number]) BLOOD (URINE) TRACE NEG [facility] (CLIA# [id number]) WBC (URINE) TRACE NEG [facility] (CLIA# [id number]) NITRITE (URINE) NEG NEG FC [facility] (CLIA# [id number]) 11/02/2006 11/02/2006 4:1 2 PM EDT Jose Mcguire MD LAB SAME DAY RESULT Final Resul t [facility] (CLIA# [id number]) [address] [place] [address] documented in this encounter Visit Diagnoses Diagnosis DYSURIA Dysuria VAGINAL DISCHARGE Leukorrhea, not specified as infective documented in this encounter Additional Health Concerns Infection Onset Date Last Indicated Resolved Time COVID-19 Rule-Out 01/13/2020 01/13/2020 01/13/2020 2:43 PM EST COVID-19 Rule-Out 02/22/2020 02/22/2020 02/22/2020 5:30 PM EST COVID-19 Confirmed 02/22/2020 02/22/2020 1 8:12 PM EDT COVID-19 Confirmed 03/09/2021 03/09/2021 2 8:12 PM EDT documented as of this encounter Care Teams Float Nurse Relationship Specialty Start Date End Date Osiris Sanchez MD [address] [place] [address] PCP - General 07/24/06 06/09/15 Jose Mcguire MD PCP - General Internal Medicine 06/10/15 05/19/19 Vandana Pierce MD PCP - General Family Medicine 05/20/19 08/03/20 Norman Arita MD [address] [place] [address] PCP - General Internal Medicine 08/04/20 03/04/22 documented as of this encounter
--- OUTSIDE RECORDS SUMMARY | 2024-11-13 16:05 | XMS_ITS | Encounter Summary ---
Author Organization [facility] Address [address] [place] [address] Care Team Providers Care Pbx Manager Name Role Phone Jose Mcguire MD Primary Care Provider Gela Vandana Tovar MD Primary Care Provider [phone] Norman Arita MD Primary Care Provider [phone] Encounter Details Date Type Department Care Team (Late Contact Info) Description 05/31/2016 Orders Only [place] [facility] Medicine [address] [place] [address] Jose Mcguire MD Social History Tobacco Use Types Packs/Day Years Used Date Smoking Tobacco: Never Smokeless Tobacco: Never Alcohol Use Standard Drinks/Week Comments Yes 0 (1 standard drink = 0.6 oz pur e alcohol) socially Comments No Sex and Gender Information Value Date Recorded Sex Assigned at Female 04/12/2020 8:08 AM EST Legal Sex Female 4:49 AM EDT Gender Identity Female 11/03/2019 2:02 PM EDT Sexual Orientation Straight 04/12/2020 8: 08 AM EST 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 documented as of this encounter Plan of Treatment Not on file documented as of this encounter Visit Diagnoses Diagnosis Chronic cough Cough Lung nodule Solitary pulmonary nodule documented in this encounter Additional Health Concerns Infection Onset Date Last Indicated Resolved Time COVID-19 Rule-Out 01/13/2020 01/13/2020 01/13/2020 2:43 PM EST COVID-19 Rule-Out 02/22/2020 02/22/2020 02/22/2020 5:30 PM EST COVID-19 Confirmed 02/22/2020 02/22/2020 1 8:12 PM EDT COVID-19 Confirmed 03/09/2021 03/09/2021 2 8:12 PM EDT documented as of this encounter Care Teams Pbx Manager Relationship Specialty Start Date End Date Jose Mcguire MD PCP - General Internal Medicine 06/10/15 05/19/19 Vandana Pierce MD PCP - General Family Medicine 05/20/19 08/03/20 Norman Arita MD [address] [place] [address] PCP - General Internal Medicine 08/04/20 03/04/22 documented as of this encounter
--- OUTSIDE RECORDS SUMMARY | 2024-11-13 16:05 | XMS_ITS | Encounter Summary ---
Author Organization [facility] Address [address] [place] [address] Care Team Providers Care Supervisor Fabrication Department Name Role Phone Jose Mcguire MD Primary Care Provider Vandana Vazquez MD Primary Care Provider [phone] Norman Arita MD Primary Care Provider [phone] Reason for Visit * Reason Comments Letter/form Request Encounter Details Date Type Department Care Team ([facility] Contact Info) Description 10/12/2017 Telephone [facility] [address] [place] [id number] Jose Mcguire MD Letter/form Request Social History Tobacco Use Types Packs/Day Years [...] f ile documented as of this encounter Miscellaneous Notes * Telephone Encounter - Anila Stacy - 10/17/2017 3:25 PM EDT Called Pt LMOM Also sent pt a message Via MyTrainer. After looking through all faxes, I do not see anything from the [facility]. I gave pt our fax number, with request that she have them send paperwork Att: Anila * Telephone Encounter - Anila Stacy - 10/16/2017 11:21 AM EDT Spoke with PCP, she has not yet seen anything regarding this as well. Will contact pt and let her know * Telephone Encounter - Anila Stacy - 10/15/2017 5:05 PM EDT I haven't seen anything regarding this as of yet. I will ask PCP when she is here tomorrow * Telephone Encounter - Dee Peters - 10/12/2017 4:50 PM EDT Pt calling to see if we received a form from [facility] vein [facility]?? Please call her back - either way because she has questions regarding this form documented in this encounter Plan of Treatment Not on file documented as of this encounter Visit Diagnoses Not on filedocumented in this encounter Additional Health Concerns Infection Onset Date Last Indicated Resolved Time COVID-19 Rule-Out 01/13/2020 01/13/2020 01/13/2020 2:43 PM EST COVID-19 Rule-Out 02/22/2020 02/22/2020 02/22/2020 5:30 PM EST COVID-19 Confirmed 02/22/2020 02/22/2020 1 8:12 PM EDT COVID-19 Confirmed 03/09/2021 03/09/2021 2 8:12 PM EDT documented as of this encounter Care Teams Supervisor Fabrication Department Relationship Specialty Start Date End Date Jose Mcguire MD PCP - General Internal Medicine 06/10/15 05/19/19 Vandana Pierce MD PCP - General Family Medicine 05/20/19 08/03/20 Norman Arita MD [address] [place] [address] PCP - General Internal Medicine 08/04/20 03/04/22 documented as of this encounter
--- OUTSIDE RECORDS SUMMARY | 2024-11-13 16:05 | XMS_ITS | Encounter Summary ---
Author Organization [facility] Address [address] [place] [address] Care Team Providers Care Optician Manager Name Role Phone Norman Arita MD Primary Care Provider [phone] Reason for Visit * Reason Comments Results Bx of liver Encounter Details Date Type Department Care Team (Late st Contact Info) Description 12/27/2021 Telephone [facility] [address] [place] [address] Norman Arita MD [address] [place] [address] Results (Bx of liver) Social History Tobacco Use Types Packs/Day Years Used Date Smoking Tobacco: Never Smokeless Tobacco: Never Alcohol Use Standard Drinks/Week Comments Yes 0 (1 standard drink = 0.6 oz pur e alcohol) socially PHQ-2 Answer Date Recorded [facility] PHQ-2 SEVERITY SCORE (Range 0-6) 0 03/07/2021 Comments No Sex and Gender Information Value Date Recorded Sex Assigned at Female 04/12/2020 8:08 AM EST Legal Sex Female 4:49 AM EDT Gender Identity Female 11/03/2019 2:02 PM EDT Sexual Orientation Straight 04/12/2020 8: 08 AM EST 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 Do not see results in chart, transferred to GI department to obtain results. Eron Arevalo PA to Susana Kyleida :26 AM So the liver biopsy did not show autoimmune hepatitis which is great. Indicates some mild inflammation but otherwise is quite vague. Path needs to be reviewed. There is nothing specific to treat based upon the comments.The only markers that were positive were the autoimmune markers in the blood. Not sure what the plan is from Rheumatology standpoint. Need some clarity there. Are you residing in [place]? Would be reasonable to find a liver specialist there and request the path slides to be obtained to look at. * Telephone Encounter - Vianney Barillas - 12/27/2021 11:43 AM EDT Pt requesting results of bx of liver. Transferred to nurse queue documented in this encounter Plan of Treatment Not on file documented as of this encounter Goals Goal Patient Goal Type Associated Problems Recent Progress Patient-Stated? Author Blood Pressure < 140/90 Blood Pressure 135/89(2021 1:46 PM EDT) Norman Leon MD Note: Above is your goal for [...] and nuts. documented as of this encounter Visit Diagnoses Not on filedocumented in this encounter Care Teams Optician Manager Relationship Specialty Start Date End Date Norman Arita MD [address] [place] [address] PCP - General Internal Medicine 08/04/20 03/04/22 documented as of this encounter
--- OUTSIDE RECORDS SUMMARY | 2024-11-13 16:05 | XMS_ITS | Encounter Summary ---
Author Organization [facility] Address [address] [place] [address] Care Team Providers Care J2Ee Developer Name Role Phone Jose Mcguire MD Primary Care Provider Gela Vandana Tovar MD Primary Care Provider [phone] Norman Arita MD Primary Care Provider [phone] Encounter Details Date Type Department Care Team (Late Contact Info) Description 08/22/2017 Orders Only [facility] Internal Medicine [address] [place] [address] Jose Mcguire MD Social History Tobacco Use [...] of this encounter Procedures * Due to [place] state law, this organization might not be sharing negative HIV tests. Procedure Name Priority Date/Time Associated Diagnosis Comments THYROID STIMULATING HORMONE (TSH) WITH FREE T4 REFLEX, SERUM Routine 08/22/2017 3:44 PM EDT Hyperlipidemia, unspecified hyperlipidemia type documented in this encounter Results * Due to [place] state law, this organization might not be sharing negative HIV tests. * THYROID STIMULATING HORMONE (TSH) WITH FREE T4 REFLEX, SERUM (08/22/2017 3:44 PM EDT) TSH 2.15 mIU/L [facility] Comment: Reference Range > or = 20 Years 0.40-4.50 Ranges First trimester 0.26-2.66 Second trimester 0.55-2.73 Third trimester 0.43-2.91 08/22/2017 3:44 PM EDT 08/23/2017 12:28 AM EDT Narrative Resulting Agency Comment [id number] Jose Mcguire MD LABORATORY Final Result Performing Organization Address City/State/[facility] Co de Phone Number [facility] [address] [place] [address] documented in this encounter Visit Diagnoses Diagnosis Hyperlipidemia, unspecified hyperlipidemia type documented in this encounter Additional Health Concerns Infection Onset Date Last Indicated Resolved Time COVID-19 Rule-Out 01/13/2020 01/13/2020 01/13/2020 2:43 PM EST COVID-19 Rule-Out 02/22/2020 02/22/2020 02/22/2020 5:30 PM EST COVID-19 Confirmed 02/22/2020 02/22/2020 1 8:12 PM EDT COVID-19 Confirmed 03/09/2021 03/09/2021 2 8:12 PM EDT documented as of this encounter Care Teams J2Ee Developer Relationship Specialty Start Date End Date Jose Mcguire MD PCP - General Internal Medicine 06/10/15 05/19/19 Vandana Pierce MD PCP - General Family Medicine 05/20/19 08/03/20 Norman Arita MD [address] [place] [address] PCP - General Internal Medicine 08/04/20 03/04/22 documented as of this encounter
--- OUTSIDE RECORDS SUMMARY | 2024-11-13 16:05 | XMS_ITS | Encounter Summary ---
Author Organization [facility] Address [address] [place] [address] Care Team Providers Care Systems Management Consultant Name Role Phone Jose Mcguire MD Primary Care Provider Gela Vandana Tovar MD Primary Care Provider [phone] Norman Arita MD Primary Care Provider [phone] Encounter Details Date Type Department Care Team (Late st Contact Info) Description 10/08/2017 Orders Only [facility] Internal Medicine [address] [place] [address] Jose Mcguire MD Social History Tobacco Use [...] Associated Diagnosis Comments TSH, 3RD GENERATION Routine 10/08/2017 7 :55 AM EDT Disorder of thyroid GLUCOSE (BLOOD) Routine 10/08/2017 7:55 AM EDT Screening for diabetes mellitus LIPID PANEL WITH REFLEX TO DIRECT LDL Routine 10/08/2017 7:55 AM EDT Lipids blood increased documented in this encounter Results * Due to [place] state law, this organization might not be sharing negative HIV tests. * TSH, 3RD GENERATION (10/08/2017 7:55 AM EDT) TSH 2.75 mIU/L [facility] Comment: Reference Range > or = 20 Years 0.40-4.50 Ranges First trimester 0.26-2.66 Second trimester 0.55-2.73 Third trimester 0.43-2.91 10/08/2017 7:55 AM EDT 10/08/2017 1:28 PM EDT Narrative Resulting Agency Comment [id number] Jose Mcguire MD LABORATORY Final Result Performing Organization Address [facility] Co de Phone Number [facility] [address] [place] [address] * (ABNORMAL) GLUCOSE (BLOOD) (10/08/2017 7:55 AM EDT) Glucose 115(H) 65 - 99 mg/dL [facility] Comment: Fasting reference interval For someone without known diabetes, a glucose value between 100 and 125 mg/dL is consistent with prediabetes and should be confirmed with a follow-up test. 10/08/2017 7:55 AM EDT 10/08/2017 1:28 PM EDT Narrative Resulting Agency Comment [id number] Jose Mcguire MD LAB SAME DAY RESULT Final Resul t Performing Organization Address City/[facility] Co de Phone Number [facility] [address] [place] [address] * (ABNORMAL) LIPID PANEL WITH REFLEX TO DIRECT LDL (10/08/2017 7:55 AM EDT) Cholesterol 206(H) <200 mg/dL [facility] HDL Cholesterol 26(L) >50 mg/dL [facility] Triglyceride 672(H) <150 mg/dL [facility] LDL Cholesterol SEE NOTE mg/dL (calc) [facility] Comment: LDL cholesterol not calculated. Triglyceride levels greater than 400 mg/dL invalidate calculated LDL results. Reference range: <100 Desirable range <100 mg/dL for primary prevention; <70 mg/dL for patients with CHD or diabetic patients with > or = 2 CHD risk factors. LDL-C is now calculated using the Junior-Sydney calculation, which is a validated novel method providing better accuracy than the Friedewald equation in the estimation of LDL-C. Junior SS et al. RASHI. 2013;310(19): 3837-5270 (http://education.Cleverlize/faq/JCQ352) CHOL/HDL Ratio 7.9(H) <5.0 (calc) [facility] Cholesterol Non-HDL 180(H) <130 mg/dL (calc) [facility] Comment: For patients with diabetes plus 1 major ASCVD risk factor, treating to a non-HDL-C goal of <100 mg/dL (LDL-C of <70 mg/dL) is considered a therapeutic option. LDL, Direct Measure 82 <100 mg/dL [facility] Comment: Desirable range <100 mg/dL for primary prevention; <70 mg/dL for patients with CHD or diabetic patients with > or = 2 CHD risk factors. 10/08/2017 7:55 AM EDT 10/08/2017 1:28 PM EDT Narrative Resulting Agency Comment [id number] Jose Mcguire MD LABORATORY Final Result [facility] [address] [place] [address] documented in this encounter Visit Diagnoses Diagnosis Lipids blood increased Other and unspecified hyperlipidemia Screening for diabetes mellitus Disorder of thyroid Unspecified disorder of thyroid documented in this encounter Additional Health Concerns Infection Onset Date Last Indicated Resolved Time COVID-19 Rule-Out 01/13/2020 01/13/2020 01/13/2020 2:43 PM EST COVID-19 Rule-Out 02/22/2020 02/22/2020 02/22/2020 5:30 PM EST COVID-19 Confirmed 02/22/2020 02/22/2020 1 8:12 PM EDT COVID-19 Confirmed 03/09/2021 03/09/2021 2 8:12 PM EDT documented as of this encounter Care Teams Systems Management Consultant Relationship Specialty Start Date End Date Jose Mcguire MD PCP - General Internal Medicine 06/10/15 05/19/19 Vandana Pierce MD PCP - General Family Medicine 05/20/19 08/03/20 Norman Arita MD [address] [place] [address] PCP - General Internal Medicine 08/04/20 03/04/22 documented as of this encounter
--- OUTSIDE RECORDS SUMMARY | 2024-11-13 16:05 | XMS_ITS | Encounter Summary ---
Author Organization [facility] Address [address] [place] [address] Care Team Providers Care Head Nurse Name Role Phone Osiris Sanchez MD Primary Care Provider [phone] Jose Mcguire MD Primary Care Provider Gela Vandana Tovar MD Primary Care Provider [phone] Norman Arita MD Primary Care Provider [phone] Encounter Details Date Type Department Care Team (Late st Contact Info) Description 02/06/2012 Orders Only [place] [facility] [address] [place] [address] Osiris Sanchez MD [address] [place] [address] Social History Tobacco Use Types Packs/Day Years [...] 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 documented in this encounter Plan of Treatment Not on file documented as of this encounter Procedures * Due to [facility] law, this organization might not be sharing negative HIV tests. Procedure Name Priority Date/Time Associated Diagnosis Comments THYROID STIMULATING HORMONE (TSH) WITH FREE T4 REFLEX, SERUM Routine 02/06/2012 1:42 PM EST Dysuria documented in this encounter Results * Due to [place] [employer] law, this organization might not be sharing negative HIV tests. * THYROID STIMULATING HORMONE (TSH) WITH FREE T4 REFLEX, SERUM (02/06/2012 1:42 PM EST) TSH 1.01 mIU/L [facility] Comment: {TSH W/REFLEX TO FT4 {[id number]) Reference Range > or = 20 Years 0.40-4.50 Ranges First trimester 0.26-2.66 Second trimester 0.55-2.73 Third trimester 0.43-2.91 02/06/2012 1:42 PM EST 02/06/2012 10:27 PM EST Narrative Resulting Agency Comment [id number] Osiris Sanchez MD LABORATORY Final Result Performing Organization Address City/State/[facility] de Phone Number [facility] [address] [place] [address] documented in this encounter Visit Diagnoses Diagnosis Dysuria Tachycardia Tachycardia, unspecified documented in this encounter Additional Health Concerns Infection Onset Date Last Indicated Resolved Time COVID-19 Rule-Out 01/13/2020 01/13/2020 01/13/2020 2:43 PM EST COVID-19 Rule-Out 02/22/2020 02/22/2020 02/22/2020 5:30 PM EST COVID-19 Confirmed 02/22/2020 02/22/2020 1 8:12 PM EDT COVID-19 Confirmed 03/09/2021 03/09/2021 2 8:12 PM EDT documented as of this encounter Care Teams Head Nurse Relationship Specialty Start Date End Date Osiris Sanchez MD [address] [place] [address] PCP - General 07/24/06 06/09/15 Jose Mcguire MD PCP - General Internal Medicine 06/10/15 05/19/19 Vandana Pierce MD PCP - General Family Medicine 05/20/19 08/03/20 Norman Arita MD [address] [place] [address] PCP - General Internal Medicine 08/04/20 03/04/22 documented as of this encounter
--- OUTSIDE RECORDS SUMMARY | 2024-11-13 16:05 | XMS_ITS | Encounter Summary ---
Author Organization [facility] Address [address] [place] [address] Care Team Providers Care Electric Motor Winders Assembler Name Role Phone Osiris Sanchez MD Primary Care Provider [phone] Jose Mcguire MD Primary Care Provider Gela Vandana Tovar MD Primary Care Provider [phone] Norman Arita MD Primary Care Provider [phone] Encounter Details Date Type Department Care Team (Late st Contact Info) Description 12/11/2012 Orders Only [facility] [address] [place] [address] Masha Oropeza, RN TRIAGE [address] [place] [address] Social History Tobacco Use Types Packs/Day Years [...] 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 Agrees to f/u as needed. * Patricia Camacho NP - 12/12/2012 9:11 PM EDTQuick Note: Urine cx noted * Patricia Camacho NP - 12/12/2012 8:36 PM EDTQuick Note: nurse: Please notify pt. (+)BV, offer Metrogel or Flagyl (Metronidazole) 500mg by mouth twice daily for 7 days, DO NOT DRINK ALCOHOL WITH THIS, follow up 1 week if not better. * Pili Clifford RN - 12/12/2012 11:13 AM EDTQuick Note: Call to pt at home number listed--nm/a--lmom to return call to auc Call to cell number listed-informed of vaginal culture results as indicated below Med ordered as requested-- see med screen * Masha Oropeza NP - 12/11/2012 9:02 PM EDTQuick Note: Please call patient and advise Flagyl 500 mg bid for 7 days + clue cells consistent with bv documented in this encounter Plan of Treatment Not on file documented as of this encounter Procedures * Due to [place] state law, this organization might not be sharing negative HIV tests. Procedure Name Priority Date/Time Associated Diagnosis Comments BV/VAGINITIS PANELDNA PROBE(AFFIRM) Routine 12/11/2012 6:41 PM EDT Urinary tract infection CHLAMYDIA TRACHOMATIS/GC, SDA (GENITAL SWAB) Routine 12/11/2012 6:41 PM EDT Urinary tract infection WET PREP STAT (All results called to provider) 12/11/2012 6:41 PM EDT Urinary tract infection CULTURE, URINE, ROUTINE Routine 12/11/2012 6:41 PM EDT Urinary tract infection URINALYSIS, MICROSCOPIC STAT (All results called to provider) 12/11/2012 6:41 PM EDT Urinary tract infection documented in this encounter Results * Due to [place] state law, this organization might not be sharing negative HIV tests. * CHLAMYDIA TRACHOMATIS/GC, SDA (GENITAL SWAB) (12/11/2012 6:41 PM EDT) Chlamydia trachomatis DNA NOT DETECTED NOT DETECTED [facility] Comment:{CHLAMYDIA TRACHOMAT IS DNA, SDA {[id number]) Neisseria gonorrhoeae DNA NOT DETECTED NOT DETECTED [facility] Comment:{NEISSERIA GONORRHOE AE DNA, SDA {[id number]) 12/11/2012 6:41 PM EDT 12/11/2012 7:14 PM EDT Narrative Resulting Agency Comment [id number] Masha Oropeza NP LABORATORY Final Result Performing Organization Address City/State/[facility] Co de Phone Number [facility] [address] [place] [address] * (ABNORMAL) BV/VAGINITIS PANELDNA PROBE (12/11/2012 6:41 PM EDT) Trichomonas vaginalis rRNA (Genital) NOT DETECTED NOT DETECTED [facility] Comment:{TRICHOMONAS: {[id number]) Gardnerella vaginalis rRNA (Genital) DETECTED(A) NOT DETECTED [facility] Comment: {GARDNERELLA: {[id number]) Increased levels of G. vaginalis may not be significant in the absence of signs and symptoms of bacterial vaginosis. Yecenia sp rRNA (Vag) NOT DETECTED NOT DETECTED [facility] Comment:{YECENIA: {[id number]) 12/11/2012 6:41 PM EDT 12/11/2012 7:14 PM EDT Narrative Resulting Agency Comment [id number] Masha Oropeza NP LABORATORY Final Result Performing Organization Address [facility] de Phone Number [facility] [address] [place] [address] * WET PREP (12/11/2012 6:41 PM EDT) Specimen source [facility] Comment:{SOURCE: {[id number]) Microscopic observation CLUE CELLS SEEN [facility] Comment: {RESULT: {[id number]) NO TRICHOMONAS VAGINALIS SEEN. NO FUNGAL ELEMENTS SEEN. 12/11/2012 6:41 PM EDT 12/11/2012 7:14 PM EDT Narrative Resulting Agency Comment [id number] Masha Oropeza RN TRIAGE LAB SAME DAY RESULT Final Re sult Performing Organization Address [facility] Phone Number [facility] [address] [place] [address] * CULTURE, URINE, ROUTINE (12/11/2012 6:41 PM EDT) Bacteria culture (Urine) SEE NOTE [facility] Comment: {CULTURE, URINE, ROUTINE {[id number]) CULTURE, URINE, ROUTINE MICRO NUMBER: [id number] TEST STATUS: FINAL SPECIMEN SOURCE: URINE SPECIMEN QUALITY: ADEQUATE RESULT: Multiple organisms present, each less than 10,000 CFU/mL. These organisms, commonly found on external and internal genitalia, are considered to be colonizers. No further testing performed. 12/11/2012 6:41 PM EDT 12/11/2012 7:14 PM EDT Narrative Resulting Agency Comment [id number] Shalom Sandra MD LABORATORY Final Res ult [facility] [address] [place] [address] * URINALYSIS, MICROSCOPIC (12/11/2012 6:41 PM EDT) WBC (Urine) NONE SEEN < OR = 5 /HPF [facility] Comment:{WBC {[id number]) RBC (Urine Sed) NONE SEEN < OR = 3 /HPF [facility] Comment:{RBC {[id number]) Epithelial cells.squamous (Urine sed) 0-5 < OR = 5 /HPF [facility] Comment:{SQUAMOUS EPITHELIAL CELLS {[id number]) Transitional cells (Urine sed) NONE SEEN < OR = 5 /HPF [facility] Comment:{TRANSITIONAL EPITHE LIAL CELLS {[id number]) Epithelial cells.renal (Urine sed) NONE SEEN < OR = 3 /HPF [facility] Comment:{RENAL EPITHELIAL CE LLS {[id number]) Bacteria (Urine) NONE SEEN NONE SEEN /HPF [facility] Comment:{BACTERIA {[id number]) Amorphous sediment (Urine sed) FEW NONE OR FEW /HPF [facility] Comment:{AMORPHOUS SEDIMENT {[id number]) Yeast (Urine sed) NONE SEEN NONE SEEN /HPF [facility] Comment:{YEAST {[id number]) Service comment 01 FEW MUCOUS THREADS [facility] Comment:{COMMENTS {[id number]) Service comment 01 SEE NOTE [facility] Comment: {NOTE {[id number]) This urine was analyzed for the presence of WBC, RBC, bacteria, casts, and other formed elements. Only those elements seen were reported. 12/11/2012 6:41 PM EDT 12/11/2012 7:14 PM EDT Narrative Resulting Agency Comment [id number] Shalom Sandra MD LAB SAME DAY RESULT Final Result [facility] [address] [place] [address] documented in this encounter Visit Diagnoses Diagnosis Urinary tract infection Urinary tract infection, site not specified documented in this encounter Additional Health Concerns Infection Onset Date Last Indicated Resolved Time COVID-19 Rule-Out 01/13/2020 01/13/2020 01/13/2020 2:43 PM EST COVID-19 Rule-Out 02/22/2020 02/22/2020 02/22/2020 5:30 PM EST COVID-19 Confirmed 02/22/2020 02/22/2020 1 8:12 PM EDT COVID-19 Confirmed 03/09/2021 03/09/2021 2 8:12 PM EDT documented as of this encounter Care Teams Electric Motor Winders Assembler Relationship Specialty Start Date End Date Osiris Sanchez MD [address] [place] [address] PCP - General 07/24/06 06/09/15 Jose Mcguire MD PCP - General Internal Medicine 06/10/15 05/19/19 Vandana Pierce MD PCP - General Family Medicine 05/20/19 08/03/20 Norman Arita MD [address] [place] [address] PCP - General Internal Medicine 08/04/20 03/04/22 documented as of this encounter
--- OUTSIDE RECORDS SUMMARY | 2024-11-13 16:05 | XMS_ITS | Encounter Summary ---
Author Organization [facility] Address [address] [place] [address] Care Team Providers Care Transporter Radiology Name Role Phone Osiris Sanchez MD Primary Care Provider [phone] Jose Mcguire MD Primary Care Provider Gela Vandana Tovar MD Primary Care Provider [phone] Norman Arita MD Primary Care Provider [phone] Encounter Details Date Type Department Care Team (Late st Contact Info) Description 10/18/2012 Orders Only May Internal Medicine [address] [place] [address] Osiris Sanchez MD [address] [place] [address] Social History Tobacco Use Types Packs/Day Years [...] 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 Will d/w patient at the upcoming appt.with me. documented in this encounter Plan of Treatment Not on file documented as of this encounter Procedures * Due to [place] law, this organization might not be sharing negative HIV tests. Procedure Name Priority Date/Time Associated Diagnosis Comments TSH, 3RD GENERATION Routine 10/18/2012 6 :56 AM EDT T4, FREE, SERUM Routine 10/18/2012 6:56 AM EDT Disorder of thyroid LIPID PANEL WITH REFLEX TO DIRECT LDL Routine 10/18/2012 6:56 AM EDT Hyperlipidemia documented in this encounter Results * Due to [place] law, this organization might not be sharing negative HIV tests. * TSH, 3RD GENERATION (10/18/2012 6:56 AM EDT) TSH 1.84 mIU/L [facility] Comment: {TSH {[id number]) Reference Range > or = 20 Years 0.40-4.50 Ranges First trimester 0.26-2.66 Second trimester 0.55-2.73 Third trimester 0.43-2.91 10/18/2012 6:56 AM EDT 10/18/2012 11:52 AM EDT us Osiris Sanchez MD LABORATORY Final Result [facility] [address] [place] [address] * T4, FREE, SERUM (10/18/2012 6:56 AM EDT) FT4 1.1 0.8 - 1.8 ng/dL [facility] Comment:{T4, FREE {[id number]) 10/18/2012 6:56 AM EDT 10/18/2012 11:52 AM EDT Narrative Resulting Agency Comment [id number] Osiris Sanchez MD LABORATORY Final Result Performing Organization Address [facility] Co de Phone Number [facility] [address] [place] [address] * (ABNORMAL) LIPID PANEL WITH REFLEX TO DIRECT LDL (10/18/2012 6:56 AM EDT) Cholesterol 193 125 - 200 mg/dL [facility] Comment:{CHOLESTEROL, TOTAL {[id number]) HDL Cholesterol 34(L) > OR = 46 mg/dL [facility] Comment:{HDL CHOLESTEROL {[id number]) Triglyceride 295(H) <150 mg/dL [facility] Comment:{TRIGLYCERIDES {[id number]) LDL Cholesterol 100 <130 mg/dL (calc) [facility] Comment: {LDL-CHOLESTEROL {[id number]) Desirable range <100 mg/dL for patients with CHD or diabetes and <70 mg/dL for diabetic patients with known heart disease. CHOL/HDL Ratio 5.7(H) < OR = 5.0 (calc) [facility] Comment:{CHOL/HDLC RATIO {[id number]) Cholesterol Non-HDL 159 mg/dL (calc) [facility] Comment: {NON HDL CHOLESTEROL {[id number]) Target for non-HDL cholesterol is 30 mg/dL higher than LDL cholesterol target. 10/18/2012 6:56 AM EDT 10/18/2012 11:52 AM EDT Narrative Resulting Agency Comment [id number] us Osiris Sanchez MD LABORATORY Final Result Performing Organization Address [facility] Co de Phone Number [facility] [address] [place] [address] documented in this encounter Visit Diagnoses Diagnosis [...] documented as of this encounter Care Teams Transporter Radiology Relationship Specialty Start Date End Date Osiris Sanchez MD [address] [place] [address] PCP - General 07/24/06 06/09/15 Jose Mcguire MD PCP - General Internal Medicine 06/10/15 05/19/19 Vandana Pierce MD PCP - General Family Medicine 05/20/19 08/03/20 Norman Arita MD [address] [place] [address] PCP - General Internal Medicine 08/04/20 03/04/22 documented as of this encounter
--- OUTSIDE RECORDS SUMMARY | 2024-11-13 16:05 | XMS_ITS | Encounter Summary ---
Author Organization [facility] Address [address] [place] [address] Care Team Providers Care Heat Treat Puller Name Role Phone Osiris Sanchez MD Primary Care Provider [phone] Jose Mcguire MD Primary Care Provider Gela Vandana Tovar MD Primary Care Provider [phone] Norman Arita MD Primary Care Provider [phone] Encounter Details Date Type Department Care Team (Late st Contact Info) Description 01/16/2012 Orders Only May Internal Medicine [address] [place] [address] Osiris Sanchez MD [address] [place] [address] Social History Tobacco Use Types Packs/Day Years [...] 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 documented in this encounter Plan of Treatment Not on file documented as of this encounter Procedures * Due to [place] law, this organization might not be sharing negative HIV tests. Procedure Name Priority Date/Time Associated Diagnosis Comments URINALYSIS, DIP ONLY STAT (All results called to provider) 01/16/2012 1:00 PM EST UTI (urinary tract infection), uncomplicated CULTURE, URINE, ROUTINE Routine 01/16/2012 12:55 PM EST UTI (urinary tract infection), uncomplicated URINALYSIS, MICROSCOPIC Routine 01/16/2012 12:55 PM EST UTI (urinary tract infection), uncomplicated documented in this encounter Results * Due to [place] law, this organization might not be sharing negative HIV tests. * (ABNORMAL) URINALYSIS, DIP ONLY ( SITE STAT ONLY) (01/16/2012 1:00 PM EST) COLOR (URINE) yellow [facility] (CLIA# [id number]) APPEARANCE (URINE) clear [facility] (CLIA# [id number]) SPECIFIC GRAVITY 1.020 1.001 - 1.035 [facility] (CLIA# [id number]) PH (URINE) 5.0 5.0 - 8.0 [facility] (CLIA# [id number]) PROTEIN (URINE) trace(A) Neg [facility] (CLIA# [id number]) GLUCOSE (URINE) negative Neg [facility] (CLIA# [id number]) Ketones (Urine) negative Neg [facility] (CLIA# [id number]) BILIRUBIN (URINE) negative Neg [facility] (CLIA# [id number]) BLOOD (URINE) trace(A) Neg [facility] (CLIA# [id number]) WBC (URINE) negative Neg [facility] (CLIA# [id number]) NITRITE (URINE) negative Neg [facility] (CLIA# [id number]) Urine specimen (specimen) 01/16/2012 1:00 PM EST Narrative [facility] (CLIA# [id number]) - 01/16/2012 1:01 PM EST Culture already ordered per provider. Micro added. Osiris Sanchez MD LAB SAME DAY RESULT Final Resul t Performing Organization Address City/[facility]/ZIP Co de Phone Number [facility] (CLIA# [id number]) [address] [place] [address] * URINALYSIS, MICROSCOPIC (01/16/2012 12:55 PM EST) WBC (Urine) 0-5 < OR = 5 /HPF [facility] Comment:{WBC {[id number]) RBC (Urine Sed) NONE SEEN < OR = 3 /HPF [facility] Comment:{RBC {[id number]) Epithelial cells.squamous (Urine sed) 0-5 < OR = 5 /HPF [facility] Comment:{SQUAMOUS EPITHELIAL CELLS {[id number]) Bacteria (Urine) NONE SEEN NONE SEEN /HPF [facility] Comment:{BACTERIA {[id number]) Hyaline casts (Urine sed) NONE SEEN NONE SEEN /LPF [facility] Comment:{HYALINE CAST {[id number]) 01/16/2012 12:5 5 PM EST 01/16/2012 7:47 PM EST Narrative Resulting Agency Comment [id number] us Osiris Sanchez MD LAB SAME DAY RESULT Final Resul t [facility] [address] [place] [address] * CULTURE, URINE, ROUTINE (01/16/2012 12:55 PM EST) Bacteria culture (Urine) SEE NOTE [facility] Comment: {CULTURE, URINE, ROUTINE {[id number]) CULTURE, URINE, ROUTINE MICRO NUMBER: [id number] TEST STATUS: FINAL SPECIMEN SOURCE: URINE SPECIMEN QUALITY: ADEQUATE RESULT: No Growth 01/16/2012 12:5 5 PM EST 01/16/2012 7:47 PM EST Narrative Resulting Agency Comment [id number] Osiris Sanchez MD LABORATORY Final Result Performing Organization Address City/State/[facility] de Phone Number [facility] [address] [place] [address] documented in this encounter Visit Diagnoses Diagnosis UTI (urinary tract infection), uncomplicated- Primary Urinary tract infection, site not specified documented in this encounter Additional Health Concerns Infection Onset Date Last Indicated Resolved Time COVID-19 Rule-Out 01/13/2020 01/13/2020 01/13/2020 2:43 PM EST COVID-19 Rule-Out 02/22/2020 02/22/2020 02/22/2020 5:30 PM EST COVID-19 Confirmed 02/22/2020 02/22/2020 1 8:12 PM EDT COVID-19 Confirmed 03/09/2021 03/09/2021 2 8:12 PM EDT documented as of this encounter Care Teams Heat Treat Puller Relationship Specialty Start Date End Date Osiris Sanchez MD [address] [place] [address] PCP - General 07/24/06 06/09/15 Jose Mcguire MD PCP - General Internal Medicine 06/10/15 05/19/19 Vandana Pierce MD PCP - General Family Medicine 05/20/19 08/03/20 Norman Arita MD [address] [place] [address] PCP - General Internal Medicine 08/04/20 03/04/22 documented as of this encounter
--- OUTSIDE RECORDS SUMMARY | 2024-11-13 16:05 | XMS_ITS | Encounter Summary ---
Author Organization [facility] Address [address] [place] [address] Care Team Providers Care Insurance Claims Specialist Name Role Phone Norman Arita MD Primary Care Provider [phone] Encounter Details Date Type Department Care Team (Late st Contact Info) Description 12/07/2021 Orders Only [facility] [address] [place] [phone] Eron Arevalo, [place] Social History Tobacco Use Types Packs/Day Years Used Date Smoking Tobacco: Never Smokeless Tobacco: Never Alcohol Use Standard Drinks/Week Comments Yes 0 (1 standard drink = 0.6 oz pur e alcohol) socially PHQ-2 [facility] Date [facility] SC[facility] (Range 0-6) 0 03/07/2021 Comments No Sex and Gender Information Value Date Recorded Sex Assigned at Female 04/12/2020 8:08 AM EST Legal Sex Female 4:49 AM EDT Gender Identity Female 11/03/2019 2:02 PM EDT Sexual Orientation Straight 04/12/2020 8: 08 AM EST 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 Procedure Name Priority Date/Time Associated Diagnosis Comments VENIPUNCTURE Routine 12/07/2021 2:17 PM EDT Abnormal LFTs IMMUNOGLOBULIN G,SUBCLASSES 1-4 SERUM Routine 12/07/2021 2:17 PM EDT Abnormal LFTs documented in this encounter Results * Due to [place] law, this organization might not be sharing negative HIV tests. * PROTHROMBIN TIME (PT) (INR), BLOOD (12/07/2021 2:17 PM EDT) INR 1.0 [facility] Comment: Reference Range 0.9-1.1 Moderate-intensity Warfarin Therapy 2.0-3.0 Higher-intensity Warfarin Therapy 3.0-4.0 PT 9.8 9.0 - 11.5 sec [facility] Comment: For additional information, please refer to http://[email or web address]/faq/UFP748 (This link is being provided for informational/ educational purposes only.) 12/07/2021 2:17 PM EDT 12/07/2021 11:50 PM EDT Narrative Resulting Agency Comment [id number] us [facility] SAME DAY RESULT Final Resu lt Performing Organization Address City/[facility]/ZIP Co de Phone Number [facility] [address] [place] [address] * IMMUNOGLOBULIN G,SUBCLASSES 1-4 SERUM (12/07/2021 2:17 PM EDT) IgG subclass 1 807 382 - 929 mg/dL [facility] IgG subclass 2 466 241 - 700 mg/dL [facility] IgG subclass 3 60 22 - 178 mg/dL [facility] IgG subclass 4 36.1 4 - 86 mg/dL [facility] IgG 1422 600 - 1640 mg/dL [facility] 12/07/2021 2:17 PM EDT 12/07/2021 11:50 PM EDT Narrative Resulting Agency Comment [id number] us [facility] Final Result Performing Organization Address [facility] Co de Phone Number [facility] [address] [place] [address] documented in this encounter Visit Diagnoses Diagnosis Abnormal LFTs Other abnormal blood chemistry documented in this encounter Care Teams Insurance Claims Specialist Relationship Specialty Start Date End Date Norman Arita MD [address] [place] [address] PCP - General Internal Medicine 08/04/20 03/04/22 documented as of this encounter
--- OUTSIDE RECORDS SUMMARY | 2024-11-13 16:05 | XMS_ITS | Encounter Summary ---
Author Organization [facility] Address [address] [place] [address] Care Team Providers Care Terminal Block Assembler Name Role Phone Osiris Sanchez MD Primary Care Provider [phone] Jose Mcguire MD Primary Care Provider Gela Vandana Tovar MD Primary Care Provider [phone] Norman Arita MD Primary Care Provider [phone] Encounter Details Date Type Department Care Team (Late st Contact Info) Description 10/03/2011 Orders Only May Internal Medicine [address] [place] [address] Osiris Sanchez MD [address] [place] [address] Social History Tobacco Use Types Packs/Day Years [...] 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 Procedure Name Priority Date/Time Associated Diagnosis Comments URINALYSIS, DIP ONLY STAT (All results called to provider) 10/03/2011 11:31 AM EDT UTI (urinary tract infection), uncomplicated CULTURE, URINE, ROUTINE Routine 10/03/2011 11:23 AM EDT UTI (urinary tract infection), uncomplicated URINALYSIS, MICROSCOPIC Routine 10/03/2011 11:23 AM EDT UTI (urinary tract infection), uncomplicated documented in this encounter Results * Due to [place] law, this organization might not be sharing negative HIV tests. * (ABNORMAL) URINALYSIS, DIP ONLY ( SITE STAT ONLY) (10/03/2011 11:31 AM EDT) COLOR (URINE) YELLOW [facility] (CLIA# [id number]) APPEARANCE (URINE) CLEAR [facility] (CLIA# [id number]) SPECIFIC GRAVITY 1.015 1.001 - 1.035 [facility] (CLIA# [id number]) PH (URINE) 7.0 5.0 - 8.0 [facility] (CLIA# [id number]) PROTEIN (URINE) TRACE(A) Neg [facility] (CLIA# [id number]) GLUCOSE (URINE) NEGATIVE Neg [facility] (CLIA# [id number]) Ketones (Urine) NEGATIVE Neg [facility] (CLIA# [id number]) BILIRUBIN (URINE) NEGATIVE Neg [facility] (CLIA# [id number]) BLOOD (URINE) 3+(A) Neg [facility] (CLIA# [id number]) WBC (URINE) 3+(A) Neg [facility] (CLIA# [id number]) NITRITE (URINE) NEGATIVE Neg [facility] (CLIA# [id number]) Urine specimen (specimen) 10/03/2011 11:31 AM EDT Narrative [facility] (CLIA# [id number]) - 10/03/2011 11:32 AM EDT Culture already ordered per provider. Micro added. us Osiris Sanchez MD LAB SAME DAY RESULT Final Resul t Performing Organization Address [facility] de Phone Number [facility] (CLIA# [id number]) [address] [place] [address] * (ABNORMAL) URINALYSIS, MICROSCOPIC (10/03/2011 11:23 AM EDT) WBC (Urine) > OR = 60(A) < OR = 5 /HPF [facility] Comment:{WBC {[id number]) RBC (Urine Sed) > OR = 60(A) < OR = 3 /HPF [facility] Comment:{RBC {[id number]) Epithelial cells.squamous (Urine sed) 0-5 < OR = 5 /HPF [facility] Comment:{SQUAMOUS EPITHELIAL CELLS {[id number]) Bacteria (Urine) NONE SEEN NONE SEEN /HPF [facility] Comment:{BACTERIA {[id number]) Hyaline casts (Urine sed) NONE SEEN NONE SEEN /LPF [facility] Comment:{HYALINE CAST {[id number]) 10/03/2011 11:2 3 AM EDT 10/03/2011 5:49 PM EDT Narrative Resulting Agency Comment [id number] us Osiris Sanchez MD LAB SAME DAY RESULT Final Resul t Performing Organization Address [facility] Co de Phone Number [facility] [address] [place] [address] * (ABNORMAL) CULTURE, URINE, ROUTINE (10/03/2011 11:23 AM EDT) Bacteria culture (Urine) SEE NOTE(A) [facility] Comment: {CULTURE, URINE, ROUTINE {[id number]) CULTURE, URINE, ROUTINE MICRO NUMBER: [id number] TEST STATUS: FINAL SPECIMEN SOURCE: URINE SPECIMEN QUALITY: ADEQUATE RESULT: 10,000-50,000 CFU/mL of Escherichia coli E.coli INT TYLER AMPICILLIN S 4 AMP/SULBACTAM S <=2 CEFAZOLIN S <=4 CEFEPIME S <=1 CEFTRIAXONE S <=1 CIPROFLOXACIN S <=0.25 ERTAPENEM S <=0.5 GENTAMICIN S <=1 IMIPENEM S <=1 LEVOFLOXACIN S <=0.12 NITROFURANTOIN S <=16 TOBRAMYCIN S <=1 TRIMETHOPRIM/SULFA S <=20 Legend: S = Susceptible I = Intermediate R = Resistant NS = Not Susceptible * = Not Tested NR = Not Reported nn = See Therapy Comments 10/03/2011 11:2 3 AM EDT 10/03/2011 5:49 PM EDT Narrative Resulting Agency Comment [id number] Osiris Sanchez MD LABORATORY Final Result Performing Organization Address [facility] Co de Phone Number [facility] [address] [place] [address] documented in this encounter Visit Diagnoses Diagnosis [...] documented as of this encounter Care Teams Terminal Block Assembler Relationship Specialty Start Date End Date Osiris Sanchez MD [address] [place] [address] PCP - General 07/24/06 06/09/15 Jose Mcguire MD PCP - General Internal Medicine 06/10/15 05/19/19 Vandana Pierce MD PCP - General Family Medicine 05/20/19 08/03/20 Norman Arita MD [address] [place] [address] PCP - General Internal Medicine 08/04/20 03/04/22 documented as of this encounter
--- OUTSIDE RECORDS SUMMARY | 2024-11-13 16:05 | XMS_ITS | Encounter Summary ---
Author Organization [facility] Address [address] [place] [address] Care Team Providers Care Genetic Scientist Name Role Phone Osiris Sanchez MD Primary Care Provider [phone] Jose Mcguire MD Primary Care Provider Gela Vandana Tovar MD Primary Care Provider Norman Arita MD Primary Care Provider [phone] Encounter Details Date Type Department Care Team (Late st Contact Info) Description 10/31/2011 Orders Only May Internal Medicine [address] [place] [address] Osiris Sanchez MD [address] [place] [phone] Social History Tobacco Use Types Packs/Day Years [...] 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 Procedure Name Priority Date/Time Associated Diagnosis Comments NEISSERIA GONORRHOEAE (GC), SDA (GENITAL SWAB) Routine 10/31/2011 4:07 PM EDT Screening examination for sexually transmitted disease CHLAMYDIA TRACHOMATIS, SDA (GENITAL SWAB) Routine 10/31/2011 4:07 PM EDT Screening examination for sexually transmitted disease HEPATITIS B SURFACE ANTIGEN Routine 10/31/2011 4:07 PM EDT Screening examination for sexually transmitted disease CULTURE, GENITAL Routine 10/31/2011 4:07 PM EDT Screening examination for sexually transmitted disease HEPATITIS C AB WITH REFLEX TO RNA PCR, SERUM Routine 10/31/2011 4:07 PM EDT Screening examination for sexually transmitted disease HEPATITIS B SURFACE ANTIBODY, QUANTITATIVE (FOR IMMUNITY) Routine 10/31/2011 4:07 PM EDT Screening examination for sexually transmitted disease RPR, (RAPID PLASMIN REAGIN) WITH REFLEX TO FTA, DIAGNOSTIC Routine 10/31/2011 4:07 PM EDT Screening examination for sexually transmitted disease documented in this encounter Results * Due to [employer] law, this organization might not be sharing negative HIV tests. * CULTURE, GENITAL (10/31/2011 4:07 PM EDT) Bacteria culture (Genital) SEE NOTE [facility] Comment: {CULTURE, GENITAL {[id number]) CULTURE, GENITAL MICRO NUMBER: [id number] TEST STATUS: FINAL SPECIMEN SOURCE: NOT GIVEN SPECIMEN QUALITY: ADEQUATE RESULT: Growth of normal urogenital azar 10/31/2011 4:07 PM EDT 10/31/2011 10:11 PM EDT Narrative Resulting Agency Comment [id number] Osiris Sanchez MD LABORATORY Final Result Performing Organization Address City/[facility]/ZIP Co de Phone Number [facility] [address] [place] [address] * NEISSERIA GONORRHOEAE (GC), SDA (GENITAL SWAB) (10/31/2011 4:07 PM EDT) Neisseria gonorrhoeae DNA NOT DETECTED NOT DETECTED [facility] Comment:{NEISSERIA GONORRHOE AE DNA, SDA {[id number]) COMMENT SEE NOTE [facility] Comment: {COMMENT {[id number]) This test was performed using the BD ProbeTec(TM) Chlamydia trachomatis and Neisseria gonorrhoeae Amplified DNA Assays. 10/31/2011 4:0 7 PM EDT 10/31/2011 10:11 PM EDT Narrative Resulting Agency Comment [id number] Osiris Sanchez MD LABORATORY Final Result Performing Organization Address [facility]/[place] Co de Phone Number [facility] [address] [place] [address] * CHLAMYDIA TRACHOMATIS, SDA (GENITAL SWAB) (10/31/2011 4:07 PM EDT) Chlamydia trachomatis DNA NOT DETECTED NOT DETECTED [facility] Comment:{CHLAMYDIA TRACHOMAT IS DNA, SDA {[id number]) COMMENT SEE NOTE [facility] Comment: {COMMENT {[id number]) This test was performed using the BD ProbeTec(TM) Chlamydia trachomatis and Neisseria gonorrhoeae Amplified DNA Assays. 10/31/2011 4:07 PM EDT 10/31/2011 10:11 PM EDT Narrative Resulting Agency Comment [id number] Osiris Sanchez MD LABORATORY Final Result Performing Organization Address City/[facility]/ZIP Co de Phone Number [facility] [address] [place] [address] * RPR, (RAPID PLASMIN REAGIN) WITH REFLEX TO FTA, DIAGNOSTIC (10/31/2011 4:07 PM EDT) Reagin Ab NON-REACT JESSICA NON-REACT JESSICA [facility] Comment:{RPR (DX) W/REFL TIT ER AND CONFIRMATORY TESTING {[id number]) 10/31/2011 4:07 PM EDT 10/31/2011 10:11 PM EDT Narrative Resulting Agency Comment [id number] Osiris Sanchez MD LABORATORY Final Result Performing Organization Address [facility]/[place] Co de Phone Number [facility] [address] [place] [address] * HEPATITIS C ANTIBODY, SERUM (10/31/2011 4:07 PM EDT) Hepatitis C virus Ab NON-REACTI VE NON-REACT JESSICA [facility] Comment:{HEPATITIS C ANTIBOD Y {[id number]) Hepatitis C virus Ab Signal/Cutoff 0.03 <1.00 [facility] Comment:{SIGNAL TO CUT-OFF { [id number]) 10/31/2011 4:07 PM EDT 10/31/2011 10:11 PM EDT Narrative Resulting Agency Comment [id number] Osiris Sanchez MD LABORATORY Final Result Performing Organization Address [facility]/[place] Co de Phone Number [facility] [address] [place] [address] * HEPATITIS B SURFACE ANTIBODY, QUANTITATIVE (10/31/2011 4:07 PM EDT) Hepatitis B virus surface Ab >1000 mIU/mL [facility] Comment: {HEPATITIS B SURFACE ANTIBODY (QUANT) {[id number]) Patient has immunity to hepatitis B virus. 10/31/2011 4:07 PM EDT 10/31/2011 10:11 PM EDT Narrative Resulting Agency Comment [id number] Osiris Sanchez MD LABORATORY Final Result Performing Organization Address City/[facility]/[place] Co de Phone Number [facility] [address] [place] [address] * HEPATITIS B SURFACE ANTIGEN (10/31/2011 4:07 PM EDT) Hepatitis B virus surface Ag NON-REACTI VE NON-REACT JESSICA [facility] Comment:{HEPATITIS B SURFACE ANTIGEN {[id number]) 10/31/2011 4:07 PM EDT 10/31/2011 10:11 PM EDT Narrative Resulting Agency Comment [id number] Osiris Sanchez MD LABORATORY Final Result [facility] [address] [place] [address] documented in this encounter Visit Diagnoses Diagnosis Screening examination for sexually transmitted disease Screening examination for venereal disease documented in this encounter Additional Health Concerns Infection Onset Date Last Indicated Resolved Time COVID-19 Rule-Out 01/13/2020 01/13/2020 01/13/2020 2:43 PM EST COVID-19 Rule-Out 02/22/2020 02/22/2020 02/22/2020 5:30 PM EST COVID-19 Confirmed 02/22/2020 02/22/2020 1 8:12 PM EDT COVID-19 Confirmed 03/09/2021 03/09/2021 2 8:12 PM EDT documented as of this encounter Care Teams Genetic Scientist Relationship Specialty Start Date End Date Osiris Sanchez MD [address] [place] [address] PCP - General 07/24/06 06/09/15 Jose Mcguire MD PCP - General Internal Medicine 06/10/15 05/19/19 Vandana Pierce MD PCP - General Family Medicine 05/20/19 08/03/20 Norman Arita MD [address] [place] [address] PCP - General Internal Medicine 08/04/20 03/04/22 documented as of this encounter
--- OUTSIDE RECORDS SUMMARY | 2024-11-13 16:05 | XMS_ITS | Encounter Summary ---
Author Organization [facility] Address [address] [place] [address] Care Team Providers Care Library Services Assistant Name Role Phone Osiris Sanchez MD Primary Care Provider [phone] Jose Mcguire MD Primary Care Provider Gela Vandana Tovar MD Primary Care Provider [phone] Norman Arita MD Primary Care Provider [phone] Encounter Details Date Type Department Care Team (Late st Contact Info) Description 08/24/2006 Orders Only May Internal Medicine [address] [place] [address] Osiris Sanchez MD [address] [place] [address] Social History Tobacco Use Types Packs/Day Years [...] 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 * (ABNORMAL) LIPID PROFILE + FASTING GLUCOSE (08/24/2006) CHOLESTEROL, TOTAL 195 125 - 200 MG/DL [facility] (CLIA# [id number]) TRIGLYCERIDES 160(H) 30 - 149 MG/DL [facility] (CLIA# [id number]) Glucose 74 65 - 99 MG/DL [facility] (CLIA# [id number]) HDL-CHOLESTEROL 46 40 - 77 MG/DL [facility] (CLIA# [id number]) LDL-CHOLESTEROL 117 62 - 130 MG/DL [facility] (CLIA# [id number]) Comment: RISK CATEGORY: LDL-CHOLESTEROL GOAL CHD AND CHD RISK EQUIVALENTS: <100 MULTIPLE (2+) FACTORS: <130 ZERO TO ONE RISK FACTOR: <160 CHD RELATIVE RISK RATIO (TOTAL/HDL) 4.24 0.0 - 5.0 [facility] (CLIA# [id number]) Comment:(0.9 X AVERAGE) 08/24/2006 08/24/2006 12: 43 PM EDT Osiris Sanchez MD LABORATORY Final Result [facility] (CLIA# [id number]) [address] [place] [address] * (ABNORMAL) CBC 5 PART DIFF (08/24/2006) WHITE BLOOD COUNT 4.6 3.8 - 10.8 THOUS/UL [facility] (CLIA# [id number]) RBC 4.43 3.80 - 5.10 MIL/UL [facility] (CLIA# [id number]) Hemoglobin 13.3 11.7 - 15.5 G/DL [facility] (CLIA# [id number]) HCT (HEMATOCRIT) 38 35.0 - 45.0 % [facility] (CLIA# [id number]) MCV 85 80.0 - 100.0 FL [facility] (CLIA# [id number]) MCH 30 27.0 - 33.0 PG [facility] (CLIA# [id number]) MCHC 35 32.0 - 36.0 G/DL [facility] (CLIA# [id number]) BAND % 0 0 - 5 % [facility] (CLIA# [id number]) NEUTROPHIL % 45(L) 48 - 75 % [facility] (CLIA# [id number]) LYMPHOCYTE % 41(H) 17 - 40 % [facility] (CLIA# [id number]) MONOCYTE % 10 0 - 14 % [facility] (CLIA# [id number]) EOSINOPHIL % 3 0 - 5 % [facility] (CLIA# [id number]) BASOPHIL % 1 0 - 3 % [facility] (CLIA# [id number]) ATYPICAL LYMPHOCYTE % 0 0 - 5 % [facility] (CLIA# [id number]) PLATELETS 151 140 - 400 THOUS/UL [facility] (CLIA# [id number]) BANDS # 0 0 - 750 CELLS/MCL [facility] (CLIA# [id number]) NEUTROPHILS # 2070 1500 - 7800 CELLS/MCL [facility] (CLIA# [id number]) LYMPHOCYTES # 1886 850 - 3900 CELLS/MCL [facility] (CLIA# [id number]) MONOCYTES # 460 200 - 950 CELLS/MCL [facility] (CLIA# [id number]) EOSINOPHILS # 138 15 - 550 CELLS/MCL [facility] (CLIA# [id number]) BASOPHILS # 46 0 - 200 CELLS/MCL [facility] (CLIA# [id number]) ATYPICAL LYMPHOCYTES # 0 0 - 200 /UL [facility] (CLIA# [id number]) RDW 13.2 11.0 - 15.0 % [facility] (CLIA# [id number]) MPV 9.5 7.5 - 11.5 FL [facility] (CLIA# [id number]) 08/24/2006 08/24/2006 12: 43 PM EDT us Osiris Sanchez MD LAB SAME DAY RESULT Final Resul t [facility] (CLIA# [id number]) [address] [place] [address] documented in this encounter Visit Diagnoses Diagnosis [...] documented as of this encounter Care Teams Library Services Assistant Relationship Specialty Start Date End Date Osiris Sanchez MD [address] [place] [address] PCP - General 07/24/06 06/09/15 Jose Mcguire MD PCP - General Internal Medicine 06/10/15 05/19/19 Vandana Pierce MD PCP - General Family Medicine 05/20/19 08/03/20 Norman Arita MD [address] [place] [address] PCP - General Internal Medicine 08/04/20 03/04/22 documented as of this encounter
--- OUTSIDE RECORDS SUMMARY | 2024-11-13 16:05 | XMS_ITS | Encounter Summary ---
Author Organization [facility] Address [address] [place] [address] Care Team Providers Care Roller Operator Name Role Phone Osiris Sanchez MD Primary Care Provider [phone] Jose Mcguire MD Primary Care Provider Gela Vandana Tovar MD Primary Care Provider [phone] Norman Arita MD Primary Care Provider [phone] Encounter Details Date Type Department Care Team ([facility] st Contact Info) Description 05/14/2012 Orders Only [facility] [address] [place] [address] Patricia Camacho, DEPUTY PROBATION OFFICER [address] [facility] [address] [place] [address] Medications Social History Tobacco Use Types Packs/Day Years [...] 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 States is a little better, less pain but still not resolved. Advise to stop Cipro and start Augmentin. Follow in 2-3 days if not completely better. * Joby Oleary CRNP - 05/15/2012 8:45 PM EDTQuick Note: Neg GC chlamydia noted * Patricia Camacho, KANDIS - 05/14/2012 8:22 PM EDTQuick Note: Wet prep noted documented in this encounter Plan of Treatment Not on file documented as of this encounter Procedures * Due to [place] [employer] law, this organization might not be sharing negative HIV tests. Procedure Name Priority Date/Time Associated Diagnosis Comments BV/VAGINITIS PANELDNA PROBE(AFFIRM) Routine 05/14/2012 6:48 PM EDT Vaginitis CHLAMYDIA TRACHOMATIS/GC, SDA (GENITAL SWAB) Routine 05/14/2012 6:48 PM EDT Vaginitis WET PREP STAT (All results called to provider) 05/14/2012 6:48 PM EDT Vaginitis CULTURE, URINE, ROUTINE Routine 05/14/2012 6:48 PM EDT Urinary tract infection URINALYSIS, MICROSCOPIC STAT (All results called to provider) 05/14/2012 6:48 PM EDT Urinary tract infection documented in this encounter Results * Due to [place] [employer] law, this organization might not be sharing negative HIV tests. * BV/VAGINITIS PANELDNA PROBE (05/14/2012 6:48 PM EDT) Trichomonas vaginalis rRNA (Genital) NOT DETECTED NOT DETECTED [facility] Comment:{TRICHOMONAS: {[id number]) Gardnerella vaginalis rRNA (Genital) NOT DETECTED NOT DETECTED [facility] Comment:{GARDNERELLA: {[id number]) Yecenia sp rRNA (Vag) NOT DETECTED NOT DETECTED [facility] Comment:{YECENIA: {[id number]) 05/14/2012 6:48 PM EDT 05/14/2012 6:55 PM EDT Narrative Resulting Agency Comment [id number] [facility] LABORATORY Final Resu lt Performing Organization Address [facility] Co de Phone Number [facility] [address] [place] [phone] * CHLAMYDIA TRACHOMATIS/GC, SDA (GENITAL SWAB) (05/14/2012 6:48 PM EDT) Pathologist [facility] Chlamydia trachomatis DNA NOT DETECTED NOT DETECTED [facility] Comment:{CHLAMYDIA TRACHOMAT IS DNA, SDA {[id number]) Neisseria gonorrhoeae DNA NOT DETECTED NOT DETECTED [facility] Comment:{NEISSERIA GONORRHOE AE DNA, SDA {[id number]) 05/14/2012 6:48 PM EDT 05/14/2012 6:55 PM EDT Narrative Resulting Agency Comment [id number] [facility] LABORATORY Final Resu lt Performing Organization Address City/[facility]/ZIP Co de Phone Number [facility] [address] [place] [address] * WET PREP (05/14/2012 6:48 PM EDT) Specimen source [facility] Comment:{SOURCE: {[id number]) Microscopic observation NO CLUE CELLS SEEN [facility] Comment: {RESULT: {[id number]) NO FUNGAL ELEMENTS SEEN. NO TRICHOMONAS VAGINALIS SEEN. 05/14/2012 6:48 PM EDT 05/14/2012 6:55 PM EDT Narrative Resulting Agency Comment [id number] us Patricia Nunez NP LAB SAME DAY RESULT Final Result Performing Organization Address City/[facility] Co de Phone Number [facility] [address] [place] [phone] * (ABNORMAL) CULTURE, URINE, ROUTINE (05/14/2012 6:48 PM EDT) Bacteria culture (Urine) SEE NOTE(A) [facility] Comment: {CULTURE, URINE, ROUTINE {[id number]) CULTURE, URINE, ROUTINE MICRO NUMBER: [id number] TEST STATUS: FINAL SPECIMEN SOURCE: URINE SPECIMEN QUALITY: ADEQUATE RESULT: 10,000-50,000 CFU/mL of Escherichia coli 10,000-50,000 CFU/mL of Group B Streptococcus isolated Beta-hemolytic Streptococci are predictably susceptible to penicillin and other beta-lactams. Susceptibility testing not routinely performed. Any amount of group B Streptococcus in urine specimens obtained from females is a marker of genital tract colonization. If this patient is , please refer to ACOG guidelines for appropriate screening and management of women. E.coli INT TYLER AMPICILLIN S <=2 AMP/SULBACTAM S <=2 CEFAZOLIN S <=4 CEFEPIME S <=1 CEFTRIAXONE S <=1 CIPROFLOXACIN S <=0.25 GENTAMICIN S <=1 IMIPENEM S <=1 LEVOFLOXACIN S <=0.12 NITROFURANTOIN S <=16 TOBRAMYCIN S <=1 TRIMETHOPRIM/SULFA S <=20 Legend: S = Susceptible I = Intermediate R = Resistant NS = Not Susceptible * = Not Tested NR = Not Reported nn = See Therapy Comments 05/14/2012 6:48 PM EDT 05/14/2012 6:55 PM EDT Narrative Resulting Agency Comment [id number] us Shalom Sandra MD LABORATORY Final Res ult Performing Organization Address [facility] Co de Phone Number [facility] [address] [place] [address] * URINALYSIS, MICROSCOPIC (05/14/2012 6:48 PM EDT) WBC (Urine) 0-5 < OR = 5 /HPF [facility] Comment:{WBC {[id number]) RBC (Urine Sed) 0-3 < OR = 3 /HPF [facility] Comment:{RBC {[id number]) Epithelial cells.squamous (Urine sed) 0-5 < OR = 5 /HPF [facility] Comment:{SQUAMOUS EPITHELIAL CELLS {[id number]) Transitional cells (Urine sed) NONE SEEN < OR = 5 /HPF [facility] Comment:{TRANSITIONAL EPITHE LIAL CELLS {[id number]) Epithelial cells.renal (Urine sed) NONE SEEN < OR = 3 /HPF [facility] Comment:{RENAL EPITHELIAL CE LLS {[id number]) Bacteria (Urine) NONE SEEN NONE SEEN /HPF [facility] Comment:{BACTERIA {[id number]) Yeast (Urine sed) NONE SEEN NONE SEEN /HPF [facility] Comment:{YEAST {[id number]) Service comment 01 FEW MUCOUS THREADS [facility] Comment:{COMMENTS {[id number]) Service comment 01 SEE NOTE [facility] Comment: {NOTE {[id number]) This urine was analyzed for the presence of WBC, RBC, bacteria, casts, and other formed elements. Only those elements seen were reported. 05/14/2012 6:48 PM EDT 05/14/2012 6:55 PM EDT Narrative Resulting Agency Comment [id number] Shalom Sandra MD LAB SAME DAY RESULT Final Result [facility] [address] [place] [address] documented in this encounter Visit Diagnoses Diagnosis Urinary tract infection Urinary tract infection, site not specified Vaginitis Vaginitis and vulvovaginitis, unspecified documented in this encounter Additional Health Concerns Infection Onset Date Last Indicated Resolved Time COVID-19 Rule-Out 01/13/2020 01/13/2020 01/13/2020 2:43 PM EST COVID-19 Rule-Out 02/22/2020 02/22/2020 02/22/2020 5:30 PM EST COVID-19 Confirmed 02/22/2020 02/22/2020 1 8:12 PM EDT COVID-19 Confirmed 03/09/2021 03/09/2021 2 8:12 PM EDT documented as of this encounter Care Teams Roller Operator Relationship Specialty Start Date End Date Osiris Sanchez MD [address] [place] [address] PCP - General 07/24/06 06/09/15 Jose Mcguire MD PCP - General Internal Medicine 06/10/15 05/19/19 Vandana Pierce MD PCP - General Family Medicine 05/20/19 08/03/20 Norman Arita MD [address] [place] [address] PCP - General Internal Medicine 08/04/20 03/04/22 documented as of this encounter
--- OUTSIDE RECORDS SUMMARY | 2024-11-13 16:05 | XMS_ITS | Encounter Summary ---
Author Organization [facility] Address [address] [place] [address] Care Team Providers Care Shipyard Painting Supervisor Name Role Phone Jose Mcguire MD Primary Care Provider Vandana Vazquez MD Primary Care Provider [phone] Norman Arita MD Primary Care Provider [phone] Encounter Details Date Type Department Care Team (Late st Contact Info) Description 06/19/2016 Orders Only [facility] Pul[facility] [address] [facility] [address] [place] [address] Tommy Saldaña MD [address] [place], [place] [id number] Medications Social History Tobacco Use Types Packs/Day [...] f ile documented as of this encounter Progress Notes * Venus Zavala 06/27/2016 9:57 AM EDT Please see telephone message dated 06/27/2016 * Tommy Saldaña MD - 06/23/2016 8:35 AM EDT Negative, less likely pertussis. * Tommy Saldaña MD - 06/21/2016 9:17 AM EDT Please review positives with the patient, how is she doing on arnuity? Possible referral for an comber operator documented in this encounter Plan of Treatment Not on file documented as of this encounter Procedures * Due to [facility] law, this organization might not be sharing negative HIV tests. Procedure Name Priority Date/Time Associated Diagnosis Comments BORDETELLA PERTUSSIS IGG ABS, MAID Routine 06/19/2016 4:46 PM EDT Cough Lung nodule [facility] Routine 06/19/2016 4:46 PM EDT Cough Lung nodule documented in this encounter Results * Due to [facility] law, this organization might not be sharing negative HIV tests. * (ABNORMAL) [facility] (06/19/2016 4:46 PM EDT) IgE 197(H) <AD=550 kU/L [facility] Dayron Grass (G6) IgE <0.10 kU/L [facility] Dayron Grass (G6) Class 0 [facility] Odette Grass(Kentucky Blue)(G8) IgE <0.10 kU/L [facility] Odette Grass([place] Blue)(G8) Class 0 [facility] Common Ragweed (Short)(W1) IgE 0.98(H) kU/L [facility] Common Ragweed (Short)(W1) Class 2 [facility] Portuguese Plantain (W9) IgE <0.10 kU/L [facility] Portuguese Plantain (W9) Class 0 [facility] Elaine's Quarters (Goosefoot) (W10) IgE <0.10 kU/L [facility] Elaine's Quarters (Goosefoot) (W10) Class 0 [facility] Kiana (T7) IgE 1.65(H) kU/L [facility] Kiana (T7) Class 2 [facility] Cat Dander (E1) IgE <0.10 kU/L [facility] Cat Dander (E1) Class 0 [facility] Dog Dander (E5) IgE <0.10 kU/L [facility] Dog Dander (E5) Class 0 [facility] Cladosporium Herbarum (M2) IgE <0.10 kU/L [facility] Cladosporium Herbarum(M2) Class 0 [facility] Alternaria Alternata (M6) IgE <0.10 kU/L [facility] Alternaria Alternata (M6) Class 0 [facility] House Dust (Brookside-Sandra) (H2) IgE 0.15(H) kU/L [facility] House Dust (Uzma-Sandra) (H2) Class 0/1 [facility] Dermatophagoides Farinae(D2) IgE 1.23(H) kU/L [facility] Dermatophagoides Farinae(D2) Class 2 [facility] 06/19/2016 4:46 PM EDT 06/19/2016 7:43 PM EDT Narrative Resulting Agency Comment [id number] Tommy Saldaña MD LABORATORY Final Result [facility] [address] [place] [address] * BORDETELLA PERTUSSIS IGG ABS, MAID (06/19/2016 4:46 PM EDT) Bordetella pertussis.toxin Ab.IgG 15 IU/mL [facility] Bordetella pertussis.filamento us hemagglutinin Ab.IgG 27 IU/mL [facility] Comment: REFERENCE RANGES: PT IgG <45 IU/mL FHA IgG <90 IU/mL Levels of antibodies recognizing pertussis toxin (PT) and filamentous hemagglutinin (FHA) are typically increased following vaccination or natural exposure to Bordetella pertussis. This assay is not appropriate for assessing immunity to pertussis because the specific antibodies and antibody levels that correlate with protection have not been well defined. The indicated reference range values reflect the 95th percentile of antibody levels from blood donors; thus, antibody levels above the reference range are highly suggestive of recent infection or vaccination. Increased levels of FHA antibodies alone may represent cross-reactive antibodies induced by infection with other Bordetella species, Mycoplasma pneumoniae, Chlamydophila pneumoniae, or nonencapsulated Haemophilus influenzae. This test was developed and its analytical performance characteristics have been determined by [facility]. It has not been cleared or approved by FDA. This assay has been validated pursuant to the CLIA regulations and is used for clinical purposes. 06/19/2016 4:46 PM EDT 06/19/2016 7:43 PM EDT Narrative Resulting Agency Comment [id number] Tommy Saldaña MD LABORATORY Final Result Performing Organization Address City/State/[facility] Co de Phone Number [facility] [address] [place] [address] documented in this encounter Visit Diagnoses Diagnosis Cough Lung nodule Solitary pulmonary nodule documented in this encounter Additional Health Concerns Infection Onset Date Last Indicated Resolved Time COVID-19 Rule-Out 01/13/2020 01/13/2020 01/13/2020 2:43 PM EST COVID-19 Rule-Out 02/22/2020 02/22/2020 02/22/2020 5:30 PM EST COVID-19 Confirmed 02/22/2020 02/22/2020 1 8:12 PM EDT COVID-19 Confirmed 03/09/2021 03/09/2021 2 8:12 PM EDT documented as of this encounter Care Teams Shipyard Painting Supervisor Relationship Specialty Start Date End Date Jose Mcguire MD PCP - General Internal Medicine 06/10/15 05/19/19 Vandana Pierce MD PCP - General Family Medicine 05/20/19 08/03/20 Norman Arita MD [address] [place] [address] PCP - General Internal Medicine 08/04/20 03/04/22 documented as of this encounter
--- OUTSIDE RECORDS SUMMARY | 2024-11-13 16:05 | XMS_ITS | Encounter Summary ---
Author Organization [facility] Address [address] [place] [address] Care Team Providers Care Door Machine Operator Name Role Phone Osiris Sanchez MD Primary Care Provider [phone] Jose Mcguire MD Primary Care Provider Gela Vandana Tovar MD Primary Care Provider [phone] Norman Arita MD Primary Care Provider [phone] Encounter Details Date Type Department Care Team (Late st Contact Info) Description 06/28/2012 Orders Only [facility] [address] [place] [id number] Joby Oleary CRNP Social History Tobacco Use Types Packs/Day Years [...] 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 Procedure Name Priority Date/Time Associated Diagnosis Comments CULTURE, URINE, ROUTINE Routine 06/28/2012 8:13 PM EDT Urinary tract infection URINALYSIS, MICROSCOPIC STAT (All results called to provider) 06/28/2012 8:13 PM EDT Urinary tract infection documented in this encounter Results * Due to [place] [facility] law, this organization might not be sharing negative HIV tests. * CULTURE, URINE, ROUTINE (06/28/2012 8:13 PM EDT) Bacteria culture (Urine) SEE NOTE [facility] Comment: {CULTURE, URINE, ROUTINE {[id number]) CULTURE, URINE, ROUTINE MICRO NUMBER: [id number] TEST STATUS: FINAL SPECIMEN SOURCE: URINE SPECIMEN QUALITY: ADEQUATE RESULT: No Growth 06/28/2012 8:13 PM EDT 06/28/2012 8:27 PM EDT Narrative Resulting Agency Comment [id number] Joby GARCIA LABORATORY Final Result [facility] [address] [place] [address] * (ABNORMAL) URINALYSIS, MICROSCOPIC (06/28/2012 8:13 PM EDT) WBC (Urine) 0-5 < OR = 5 /HPF [facility] Comment:{WBC {[id number]) Epithelial cells.squamous (Urine sed) 6-10(A) < OR = 5 /HPF [facility] Comment:{SQUAMOUS EPITHELIAL CELLS {[id number]) Bacteria (Urine) FEW(A) NONE SEEN /HPF [facility] Comment:{BACTERIA {[id number]) Service comment 01 MANY MUCOUS THREADS [facility] Comment:{COMMENTS {[id number]) Service comment 01 SEE NOTE [facility] Comment: {NOTE {[id number]) This urine was analyzed for the presence of WBC, RBC, bacteria, casts, and other formed elements. Only those elements seen were reported. 06/28/2012 8:13 PM EDT 06/28/2012 8:27 PM EDT Narrative Resulting Agency Comment [id number] us Joby GARCIA LAB SAME DAY RESULT Final Resul t [facility] [address] [place] [address] documented in this encounter Visit Diagnoses Diagnosis [...] documented as of this encounter Care Teams Door Machine Operator Relationship Specialty Start Date End Date Osiris Sanchez MD [address] [place] [address] PCP - General 07/24/06 06/09/15 Jose Mcguire MD PCP - General Internal Medicine 06/10/15 05/19/19 Vandana Pierce MD PCP - General Family Medicine 05/20/19 08/03/20 Norman Arita MD [address] [place] [address] PCP - General Internal Medicine 08/04/20 03/04/22 documented as of this encounter
--- OUTSIDE RECORDS SUMMARY | 2024-11-13 16:05 | XMS_ITS | Encounter Summary ---
Author Organization [facility] Address [address] [place] [address] Care Team Providers Care Finishing Range Operator Name Role Phone Jose Mcguire MD Primary Care Provider Vandana Vazquez MD Primary Care Provider [phone] Norman Arita MD Primary Care Provider [phone] Reason for Visit * Reason Onset Date Comments Refill Request 05/08/2017 Encounter Details Date Type Department Care Team (Late st Contact Info) Description 05/08/2017 Refill [facility] Internal Medicine [address] [place] [address] Jose Mcguire MD Refill Request Social History Tobacco Use Types Packs/Day [...] as of this encounter Visit Diagnoses Diagnosis Hyperlipidemia, unspecified hyperlipidemia type documented in this encounter Additional Health Concerns Infection Onset Date Last Indicated Resolved Time COVID-19 Rule-Out 01/13/2020 01/13/2020 01/13/2020 2:43 PM EST COVID-19 Rule-Out 02/22/2020 02/22/2020 02/22/2020 5:30 PM EST COVID-19 Confirmed 02/22/2020 02/22/2020 1 8:12 PM EDT COVID-19 Confirmed 03/09/2021 03/09/2021 2 8:12 PM EDT documented as of this encounter Care Teams Finishing Range Operator Relationship Specialty Start Date End Date Jose Mcguire MD PCP - General Internal Medicine 06/10/15 05/19/19 Vandana Pierce MD PCP - General Family Medicine 05/20/19 08/03/20 Norman Arita MD [address] [facility] [place] [address] PCP - General Internal Medicine 08/04/20 03/04/22 documented as of this encounter
--- OUTSIDE RECORDS SUMMARY | 2024-11-13 16:05 | XMS_ITS | Encounter Summary ---
Author Organization [facility] Address [address] [place] [address] Care Team Providers Care Time Study Analyst Name Role Phone Osiris Sanchez MD Primary Care Provider [phone] Jose Mcguire MD Primary Care Provider Gela Vandana Tovar MD Primary Care Provider [phone] Norman Arita MD Primary Care Provider Encounter Details Date Type Department Care Team (Late st Contact Info) Description 10/07/2012 Orders Only [facility] [address] [place] [address] Juli Boothe, PROFESSOR OF FOOD BIOCHEMISTRY [address] [place] [address] Social History Tobacco Use Types Packs/Day Years [...] 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 Procedure Name Priority Date/Time Associated Diagnosis Comments STREPTOCOCCUS, GROUP A CULTURE Routine 10/07/2012 11:53 AM EDT Sore throat documented in this encounter Results * Due to [employer] law, this organization might not be sharing negative HIV tests. * STREPTOCOCCUS, GROUP A CULTURE (10/07/2012 11:53 AM EDT) Culture, Streptococci Group A, Throat SEE NOTE [facility] Comment: {STREPTOCOCCUS, GROUP A CULTURE {[id number]) STREPTOCOCCUS, GROUP A CULTURE MICRO NUMBER: [id number] TEST STATUS: FINAL SPECIMEN SOURCE: THROAT SPECIMEN QUALITY: ADEQUATE RESULT: No beta hemolytic Streptococci isolated 10/07/2012 11:5 3 AM EDT 10/07/2012 4:26 PM EDT Narrative Resulting Agency Comment [id number] Juli Boothe NP LABORATORY Final Result Performing Organization Address City/State/[facility] Co de Phone Number [facility] [address] [place] [address] documented in this encounter Visit Diagnoses Diagnosis Sore throat Acute pharyngitis documented in this encounter Additional Health Concerns Infection Onset Date Last Indicated Resolved Time COVID-19 Rule-Out 01/13/2020 01/13/2020 01/13/2020 2:43 PM EST COVID-19 Rule-Out 02/22/2020 02/22/2020 02/22/2020 5:30 PM EST COVID-19 Confirmed 02/22/2020 02/22/2020 1 8:12 PM EDT COVID-19 Confirmed 03/09/2021 03/09/2021 2 8:12 PM EDT documented as of this encounter Care Teams Time Study Analyst Relationship Specialty Start Date End Date Osiris Sanchez MD [address] [place] [address] PCP - General 07/24/06 06/09/15 Jose Mcguire MD PCP - General Internal Medicine 06/10/15 05/19/19 Vandana Pierce MD PCP - General Family Medicine 05/20/19 08/03/20 Norman Arita MD [address] [place] [address] PCP - General Internal Medicine 08/04/20 03/04/22 documented as of this encounter
--- OUTSIDE RECORDS SUMMARY | 2024-11-13 16:05 | XMS_ITS | Encounter Summary ---
Author Organization [facility] Address [address] [place] [address] Care Team Providers Care Pharmacy Picking Technician Name Role Phone Osiris Sanchez MD Primary Care Provider [phone] Jose Mcguire MD Primary Care Provider Gela Vandana Tovar MD Primary Care Provider [phone] Norman Arita MD Primary Care Provider [phone] Encounter Details Date Type Department Care Team (Late st Contact Info) Description 11/02/2006 Orders Only [facility] Internal Medicine [address] [place] [address] Catalina Garcia LVN LPN Social History Tobacco Use Types Packs/Day Years [...] 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 * CULTURE, URINE (11/02/2006) URINE CULTURE CLEAN VOID SEE TEXT [facility] (CLIA# [id number]) Comment: SOURCE: URINE NO GROWTH 11/02/2006 11/02/2006 4:1 2 PM EDT Jose Mcguire MD LABORATORY Final Result Performing Organization Address [facility]/ZIP Co de Phone Number [facility] (CLIA# [id number]) [address] [place] [address] * URINALYSIS, DIP ONLY ( SITE STAT ONLY) (11/02/2006) COLOR (URINE) YELLOW YELLOW [facility] (CLIA# [id number]) APPEARANCE (URINE) CLEAR CLEAR [facility] (CLIA# [id number]) SPECIFIC GRAVITY 1.020 1.001 - 1.035 [facility] (CLIA# [id number]) PH (URINE) 6.0 5.0 - 8.0 [facility] (CLIA# [id number]) PROTEIN (URINE) TRACE NEG [facility] (CLIA# [id number]) GLUCOSE (URINE) NEG NEG [facility] (CLIA# [id number]) Ketones (Urine) NEG NEG [facility] (CLIA# [id number]) BILIRUBIN (URINE) NEG NEG [facility] (CLIA# [id number]) BLOOD (URINE) TRACE NEG [facility] (CLIA# [id number]) WBC (URINE) TRACE NEG [facility] (CLIA# [id number]) NITRITE (URINE) NEG NEG [facility] (CLIA# [id number]) 11/02/2006 11/02/2006 4:1 2 PM EDT Jose Mcguire MD LAB SAME DAY RESULT Final Resul t [facility] (CLIA# [id number]) [address] [place] [address] documented in this encounter Visit Diagnoses Diagnosis DYSURIA- Primary Dysuria documented in this encounter Additional Health Concerns Infection Onset Date Last Indicated Resolved Time COVID-19 Rule-Out 01/13/2020 01/13/2020 01/13/2020 2:43 PM EST COVID-19 Rule-Out 02/22/2020 02/22/2020 02/22/2020 5:30 PM EST COVID-19 Confirmed 02/22/2020 02/22/2020 1 8:12 PM EDT COVID-19 Confirmed 03/09/2021 03/09/2021 2 8:12 PM EDT documented as of this encounter Care Teams Pharmacy Picking Technician Relationship Specialty Start Date End Date Osiris Sanchez MD [address] [place] [address] PCP - General 07/24/06 06/09/15 Jose Mcguire MD PCP - General Internal Medicine 06/10/15 05/19/19 Vandana Pierce MD PCP - General Family Medicine 05/20/19 08/03/20 Norman Arita MD [address] [place] [address] PCP - General Internal Medicine 08/04/20 03/04/22 documented as of this encounter
--- OUTSIDE RECORDS SUMMARY | 2024-11-13 16:06 | XMS_ITS | Encounter Summary ---
Author Organization [employer] Address [address] [facility] [address] [place] [address] Care Team Providers Care Paper Rewinder Operator Name Role Phone Tee Thomas MD Primary Care Prov ider Reason for Visit * Reason Onset Date Comments Nurse Triage 07/14/2024 Encounter Details Date Type Department Care Team ([facility] st Contact Info) Description 07/14/2024 Telephone [facility] [address] [place] [address] Tee Thomas MD [address] [place] [address] Nurse Triage Social History Tobacco Use Types [...] PM EDT documented as of this encounter Miscellaneous Notes * Telephone Encounter - Kathleen Samayoa RN - 07/14/2024 10:39 AM EDT Images from the original note were not included. [facility] (supporting Tee Chiang, Triage call regarding Pt portal messages. Pt reports sore throat and cough since 5/10/25. Pt reports pain with swallowing and now left ear hurts as well with some itchiness and tingling. Neg for drainage from ear, fever. ASK apt in [facility] 340pm 07/14/24. Pt agrees with disposition. [...] started to hurt but no fever. Johana Sanchez [facility] Nurs[facility] (supporting Tee Chiang [...] she suggest not to call her private. [phone] * Telephone Encounter - Manuel Massey - 07/14/2024 9:18 AM EDT Symptom: Sore Throat Outcome: Schedule an urgent appointment (within 4 hours) or talk to a nurse or provider soon Reason: Trouble drinking The caller accepted this outcome. documented in this encounter Plan of Treatment Not on file documented as of this encounter Visit Diagnoses Not on filedocumented in this encounter Care Teams Paper Rewinder Operator Relationship Specialty Start Date End Date Tee Thomas MD [address] [place] [address] PCP - General Internal Medicine 06/25/24 documented as of this encounter
--- OUTSIDE RECORDS SUMMARY | 2024-11-13 16:06 | XMS_ITS | Encounter Summary ---
Author Organization [facility] Address [address] [place] [address] Care Team Providers Care High Pressure Operator Name Role Phone Norman Arita MD Primary Care Provider [phone] Reason for Visit * Reason Onset Date Comments Refill Request 08/11/2020 Encounter Details Date Type Department Care Team (Late st Contact Info) Description 08/11/[address] [address] Vandana Pierce MD [address] [place] [address] Refill Request Social History Tobacco Use Types Packs/Day Years Used Date Smoking Tobacco: Never Smokeless Tobacco: Never Alcohol Use Standard Drinks/Week Comments Yes 0 (1 standard drink = 0.6 oz pur e alcohol) socially PHQ-2 Answer Date Recorded PHQ-2 Score 1 11/25/2019 Comments No Sex and Gender Information Value Date Recorded Sex Assigned at Female 04/12/2020 8:08 AM EST Legal Sex Female 4:49 AM EDT Gender Identity Female 11/03/2019 2:02 PM EDT Sexual Orientation Straight 04/12/2020 8: 08 AM EST 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 No / Unsure 07/19/2020 9:35 PM EDT documented as of this encounter Miscellaneous Notes * Telephone Encounter - Norman Arita MD - 08/11/2020 8:52 AM EDT This patient was patient of Dr. Pierce at [facility]. I told my panel was closed. I do not feel comfortable refilling the medications without seeing patient first. She should follow-up at [facility] * Telephone Encounter - Shara Thompson - 08/11/2020 8:38 AM EDT Any special requests or concerns? none Faxed/E-prescribed medication renewal request(s) for Tahirdino Antonyn 50 y.o. female received from pharmacy. Verified and Confirmed pharmacy for patient. Last CPE with this specialty: 11/25/2019 Last OV with this specialty: 05/28/2020 Next OV: Future Appointments Date Time Provider Department Phone 09/07/20 1:30 PM ANJU Ramires [facility] Otolaryngology [address] 03/08/21 2:05 PM Norman Arita MD [facility] [phone] 04/19/21 7:00 AM PROFESSIONAL DEVELOPMENT MANAGER MAMMOGRAPHY ROOM2 [facility] Mammography [phone] Pertinent lab results: Lab Results Component Value Date SODIUM 138 11/25/2019 POTASSIUM 4.1 11/25/2019 CHLOR 102 11/25/2019 CO2 29 11/25/2019 BUN 14 11/25/2019 CREATININE 0.78 11/25/2019 GFR 89 11/25/2019 GLUCOSE 81 11/25/2019 DOLORES 9.9 11/25/2019 An open order for Basic does not exist. Testing recommended a minimum of yearly for chronic therapy (every 6 months with potassium sparing diuretics) . Based on last lab testing intervals, 6 month supply suggested for potassium, diuretics, DANA inhibitors, ARBs and bone density medication. However, if a potassium sparing diuretic such as a Spironolactone, Triamterene or Amiloride is ordered, a 1 month supply is suggested of that medication. Please arrange updated lab monitoring. Allergies: Latex BP Readings from Last 1 Encounters: 07/13/20 106/72 Patient Active Problem List Diagnosis Date Noted ??? Epidermoid cyst 05/28/2020 05/28/2020: desires excision, derm consult placed given cosmetically sensitive area and schedule access. ??? Axillary mass, left 05/28/2020 05/28/2020: small pea-sized mass soft mobile, nontender left anterior axillary fold. No inflammatory/infection source noted in the LUE. Screening mammogram negative last month. Will obtain US breast/axilla to r/o axillary tail malignancy and evaluate for lymph node architecture. No other lymph nodes appreciated on exam, normal breast exam o/w. ??? LPRD (laryngopharyngeal reflux disease) 04/26/2020 ??? RENE (generalized anxiety disorder) 11/25/2019 Uses lorazepam at bed time as needed, can't take during the day b/c makes her drowsy, doesn't use nightly Used to be on additional medications as well Used to see psychiatrist and therapist, not seeing anymore Does her own stress management with yoga, exercise, meditation 11/25/2019: discussed manager long term care risks of benzodiazepines and that they are not recommended as first line therapy for insomnia. She does not use nightly at this point. Suggested that she try tapering down to 1/2 pill as needed and then off and continue to work on sleep hygiene/stress management. If difficulty coming down then OK for continued rx while trialing alternative medications for sleep/anxiety. 04/12/2020-off lorazepam. See insomnia for further details ??? Mixed incontinence 05/15/2018 03/08/2020- stable ??? Insomnia 09/28/2016 See RENE below. Would recommend trialing alternative agent to lorazepam as opposed to indefinite therapy as she gets older. Will continue to fill as she trials a taper down to 1/2 tab as needed, then off. Consider amitriptyline or trazodone. 03/08/2020- off lorazepam, would like to start medication for insomnia as this is an ongoing/chronic issue. Will start with trazodone 50 mg at at bedtime, side effects reviewed, advised to start by cutting in half and taper up to 50. We will follow-up in 6 weeks. She understands and agrees with plan 04/12/2020-did not tolerate trazodone. Will start amitriptyline 10 mg at at bedtime, follow-up in 4 weeks. 05/11/2020- stable, doing well on amitriptyline, continue same ??? Exercise-induced asthma 08/18/2013 Albuterol PRN 03/08/2020: stable, using ELLEN 1-2 times per month 04/12/2020-reports increased coughing and shortness of breath/wheezing episodes since Covid in February 2020. Symptoms wax and wane. She uses albuterol a few times a week. Has pulse ox at home, iarwzhs72/99%. No acute symptoms on video visit today. She would like to follow-up with pulmonary, consultplaced. Seen by pulm late Feb - likely laryngopharyngeal reflux, staring omeprazole BID, f/u in 2 mo. Spirometry was normal. INI then refer to ENT. ??? HSV-2 (herpes simplex virus 2) infection 07/15/2013 See labs July 2013 11/25/2019: has not had good success w/episodic treatment, however she tends to wait and call for rxafter outbreak happens. Advised to start filling rx to have on hand before outbreak, start immediately at first signs, and if still having frequent outbreaks then call or send [employer] message and will switch to suppressive therapy. 03/08/2020-has had several outbreaks, particularly related to stress. Recently had Covid infection and this triggered another outbreak. Will start suppressive therapy with Valtrex. ??? Nodule of left lung 12/29/[address] SCAN 12/24/11 - INCIDENTAL FINDING Multiple f/u CT chest with stability - no further scans needed ??? Hypothyroidism 04/01/2010 Levothyroxine 25 mcg daily 11/25/2019: TSH ordered. She is interested in potentially coming off levothyroxine in the future. She is on a low dose. If TSH is lower end of normal then will plan to trial off for 3 mo. 11/26/2019: TSH 0.99, will trial off levothyroxine for 3 months and repeat TSH end of February. ??? Hyperlipidemia 09/01/2009 Atorvastatin 20mg 11/25/2019: lipid panel ordered, has lost weight and improved diet, continue statin. 03/08/2020- upper end of normal, continue atorvastatin ??? Status post hysterectomy 02/21/2007 Pt with history of endometriosis. Prior hyst with LSO, then laparoscopic RSO with Dr Anderson . Suggestion by Dr Anderson: I do recommend patient continue on hormonal replacement to age 49 as long as she is asymptomatic from her endometriosis . ??? Pelvic pain syndrome 08/21/2006 Off pain meds, still has slight discomfort , sees Dr Cruz Current Outpatient Medications on File Prior to Visit Medication Sig Dispense Refill ??? Omeprazole (PriLOSEC) [address] capsule Take one capsule (40 mg total) by mouth 1 (one) time each day Take 30 minutes prior to eating. 30 capsule 2 ??? Omeprazole (PriLOSEC) [address] capsule Take one capsule (20 mg total) by mouth in the morning and at bedtime 60 capsule 2 ??? ALBUTEROL SULFATE (ProAir HFA) 108 (90 Base) MCG/ACT inhaler Inhale two puffs - EVERY 4 TO 6 HOURS NEEDED FOR WHEEZING OR SHORTNESS OF BREATH 1 Inhaler 3 ??? amLODIPine Besylate (NORVASC) 10 MG tablet Take one tablet (10 mg total) by mouth 1 (one) time each day 30 tablet 5 ??? Spironolactone (ALDACTONE) 25 MG tablet Take one tablet (25 mg total) by mouth 1 (one) time each day 90 tablet 0 ??? Amitriptyline HCl (ELAVIL) 10 MG tablet Take one tablet (10 mg total) by mouth every night 90 tablet 3 ??? Valacyclovir HCl (Valtrex) 500 MG tablet Take one tablet (500 mg total) by mouth 1 (one) time each day 90 tablet 3 ??? Atorvastatin Calcium (LIPITOR) 20 MG tablet Take one tablet (20 mg total) by mouth 1 (one) timeeach day 90 tablet 3 ??? Ibuprofen 800 MG Tab 1 TABLET 3 TIMES DAILY (Patient taking differently: Take 800 mg by mouth every 8 (eight) hours if needed ) 90 Tab 0 ??? Cyanocobalamin (VITAMIN B-12) 1000 MCG Tab 1 TABLET DAILY ??? Vitamin D, Cholecalciferol, 1000 UNITS Cap 1 TABLET DAILY ??? Multiple Vitamins-Minerals (MULTIPLE VITAMINS/WOMENS) Tab 1 TABLET DAILY * Telephone Encounter - Tory Reyna - 08/11/2020 7:47 AM EDT Routing to new PCP office documented in this encounter Plan of Treatment Not on file documented as of this encounter Visit Diagnoses Not on filedocumented in this encounter Additional Health Concerns Infection Onset Date Last Indicated Resolved Time COVID-19 Confirmed 03/09/2021 03/09/2021 8:12 PM EDT documented as of this encounter Care Teams High Pressure Operator Relationship Specialty Start Date End Date Norman Arita MD [address] [place] [address] PCP - General Internal Medicine 08/04/20 03/04/22 documented as of this encounter
--- OUTSIDE RECORDS SUMMARY | 2024-11-13 16:06 | XMS_ITS | Encounter Summary ---
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 none Patient, Tahir Kyle 50 y.o. female sent a [employer] message with request to renew medication(s). When do you need the medication? within 48 hours Last CPE with this specialty: 11/25/2019 Last OV with this specialty: 05/28/2020 Next OV: Future Appointments Date Time Provider Department Phone 09/07/20 1:30 PM ANJU Ramires [facility] Otolaryngology [address] 03/08/21 2:05 PM Norman Arita MD [facility] [phone] 04/19/21 7:00 AM DIFFUSER OPERATOR MAMMOGRAPHY ROOM2 [facility] Mammography [phone] Verified and Confirmed pharmacy for patient. Pertinent lab results: Lab Results Component Value [...] Please arrange updated lab monitoring. Allergies: Latex Pended medication order(s) and sent to provider. Patient expects medication renewal unless notifiedby this office. BP Readings from Last 1 Encounters: 07/13/20 [...] management with yoga, exercise, meditation 11/25/2019: discussed termite inspector risks of benzodiazepines and that they are [...] a week. Has pulse ox at home, herdagy11/99%. No acute symptoms on video visit today. [...] having frequent outbreaks then call or send [employer] message and will switch to suppressive therapy. [...] Vitamins-Minerals (MULTIPLE VITAMINS/WOMENS) Tab 1 TABLET DAILY documented in this encounter Plan of Treatment Not on file documented as of this encounter Visit Diagnoses Not on filedocumented in this encounter Additional Health Concerns Infection Onset Date Last Indicated Resolved Time COVID-19 Confirmed 03/09/2021 03/09/2021 2 8:12 PM EDT documented as of this encounter Care Teams Store Manager Relationship Specialty Start Date End Date Norman Arita MD [address] [place] [address] PCP - General Internal Medicine 08/04/20 03/04/22 documented as of this encounter
--- OUTSIDE RECORDS SUMMARY | 2024-11-13 16:06 | XMS_ITS | Encounter Summary ---
Author Organization [facility] Address [address] [place] [address] Care Team Providers Care Ichthyologist Name Role Phone Osiris Sanchez MD Primary Care Provider [phone] Jose Mcguire MD Primary Care Provider Gela Vandana Tovar MD Primary Care Provider [phone] Norman Arita MD Primary Care Provider [phone] Encounter Details Date Type Department Care Team (Late st Contact Info) Description 06/12/2013 Orders Only [facility] [address] [place] [address] Osiris Sanchez MD [address] [place] [address] Social History Tobacco Use Types Packs/Day Years [...] 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 Procedure Name Priority Date/Time Associated Diagnosis Comments LIPID PANEL WITH REFLEX TO DIRECT LDL Routine 06/12/2013 7:11 AM EDT Hyperlipidemia documented in this encounter Results * Due to [place] [employer] law, this organization might not be sharing negative HIV tests. * (ABNORMAL) LIPID PANEL WITH REFLEX TO DIRECT LDL (06/12/2013 7:11 AM EDT) Cholesterol 218(H) 125 - 200 mg/dL [facility] Comment:{CHOLESTEROL, TOTAL {[id number]) HDL Cholesterol 43(L) > OR = 46 mg/dL [facility] Comment:{HDL CHOLESTEROL {[id number]) Triglyceride 269(H) <150 mg/dL [facility] Comment:{TRIGLYCERIDES {[id number]) LDL Cholesterol 121 <130 mg/dL (calc) [facility] Comment: {LDL-CHOLESTEROL {[id number]) Desirable range <100 mg/dL for patients with CHD or diabetes and <70 mg/dL for diabetic patients with known heart disease. CHOL/HDL Ratio 5.1(H) < OR = 5.0 (calc) [facility] Comment:{CHOL/HDLC RATIO {[id number]) Cholesterol Non-HDL 175(H) mg/dL (calc) [facility] Comment: {NON HDL CHOLESTEROL {[id number]) Target for non-HDL cholesterol is 30 mg/dL higher than LDL cholesterol target. 06/12/2013 7:11 AM EDT 06/12/2013 12:47 PM EDT Narrative Resulting Agency Comment [id number] us Osiris Sanchez MD LABORATORY Final Result [facility] [address] [place] [address] documented in this encounter Visit Diagnoses Diagnosis Hyperlipidemia Other and unspecified hyperlipidemia documented in this encounter Additional Health Concerns Infection Onset Date Last Indicated Resolved Time COVID-19 Rule-Out 01/13/2020 01/13/2020 01/13/2020 2:43 PM EST COVID-19 Rule-Out 02/22/2020 02/22/2020 02/22/2020 5:30 PM EST COVID-19 Confirmed 02/22/2020 02/22/2020 1 8:12 PM EDT COVID-19 Confirmed 03/09/2021 03/09/2021 2 8:12 PM EDT documented as of this encounter Care Teams Ichthyologist Relationship Specialty Start Date End Date Osiris Sanchez MD [address] [place] [address] PCP - General 07/24/06 06/09/15 Jose Mcguire MD PCP - General Internal Medicine 06/10/15 05/19/19 Vandana Pierce MD PCP - General Family Medicine 05/20/19 08/03/20 Norman Arita MD [address] [place] [address] PCP - General Internal Medicine 08/04/20 03/04/22 documented as of this encounter
--- OUTSIDE RECORDS SUMMARY | 2024-11-13 16:06 | XMS_ITS | Encounter Summary ---
Author Organization [facility] Address [address] [place] [address] Care Team Providers Care Classics Teacher Name Role Phone Jose Mcguire MD Primary Care Provider Vandana Vazquez MD Primary Care Provider [phone] Norman Arita MD Primary Care Provider [phone] Reason for Visit * Reason Onset Date Comments Refill Request 11/14/2017 Encounter Details Date Type Department Care Team (Late st Contact Info) Description 11/14/2017 Refill [facility] [address] [place] [address] Jose Mcguire MD Refill Request Social History [...] 2:02 PM EDT Sexual Orientation Straight 04/12/2020 8 :08 AM EST 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 documented as of this encounter Plan of Treatment Not on file documented as of this encounter Visit Diagnoses Diagnosis Insomnia, unspecified type documented in this encounter Additional Health Concerns Infection Onset Date Last Indicated Resolved Time COVID-19 Rule-Out 01/13/2020 01/13/2020 01/13/2020 2:43 PM EST COVID-19 Rule-Out 02/22/2020 02/22/2020 02/22/2020 5:30 PM EST COVID-19 Confirmed 02/22/2020 02/22/2020 1 8:12 PM EDT COVID-19 Confirmed 03/09/2021 03/09/2021 2 8:12 PM EDT documented as of this encounter Care Teams Classics Teacher Relationship Specialty Start Date End Date Jose Mcguire MD PCP - General Internal Medicine 06/10/15 05/19/19 Vandana Pierce MD PCP - General Family Medicine 05/20/19 08/03/20 Norman Arita MD [address] [place] [address] PCP - General Internal Medicine 08/04/20 03/04/22 documented as of this encounter
--- OUTSIDE RECORDS SUMMARY | 2024-11-13 16:06 | XMS_ITS | Encounter Summary ---
Author Organization [facility] Address [address] [place] [address] Care Team Providers Care Assistant Director Of Security Name Role Phone Osiris Sanchez MD Primary Care Provider [phone] Jose Mcguire MD Primary Care Provider Gela Vandana Tovar MD Primary Care Provider [phone] Norman Arita MD Primary Care Provider [phone] Encounter Details Date Type Department Care Team (Late st Contact Info) Description 08/22/2012 Orders Only [facility] DELIVERY SUPERVISOR [address] [facility] [address] [place] [address] Dee Mcdonald CRNP [address] [place] [address] Social History Tobacco Use Types Packs/Day Years [...] 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 Can offer flagyl by mouth if having symptoms of BV now. I also did discuss this pt With Dr nAderson and suggestion is to restart pt on Premarin 0.625mg by mouth daily for her premature surgical menopause. * Catalina Mackenzie RN - 08/26/2012 10:19 AM EDTQuick Note: Results to [facility] Tel enc to Nurse pool / a call has been placed & a message left for pt to c/b. * Catalina Mackenzie RN - 08/23/2012 8:07 AM EDTQuick Note: Some results still pending documented in this encounter Plan of Treatment Not on file documented as of this encounter Procedures * Due to [place] [employer] law, this organization might not be sharing negative HIV tests. Procedure Name Priority Date/Time Associated Diagnosis Comments BV/VAGINITIS PANELDNA PROBE(AFFIRM) Routine 08/22/2012 9:35 AM EDT Vaginal Discharge CHLAMYDIA TRACHOMATIS/N. GONORRHOEAE (GC) DNA, SDA (URINE) Routine 08/22/2012 7:50 AM EDT Vaginal Discharge documented in this encounter Results * Due to [place] [employer] law, this organization might not be sharing negative HIV tests. * (ABNORMAL) BV/VAGINITIS PANELDNA PROBE (08/22/2012 9:35 AM EDT) Trichomonas vaginalis rRNA (Genital) NOT DETECTED NOT DETECTED [facility] Comment:{TRICHOMONAS: {[id number]) Gardnerella vaginalis rRNA (Genital) DETECTED(A) NOT DETECTED [facility] Comment: {GARDNERELLA: {[id number]) Increased levels of G. vaginalis may not be significant in the absence of signs and symptoms of bacterial vaginosis. Yecenai sp rRNA (Vag) NOT DETECTED NOT DETECTED [facility] Comment:{YECENIA: {[id number]) 08/22/2012 9:35 AM EDT 08/22/2012 8:11 PM EDT Narrative Resulting Agency Comment [id number] us [facility] Final Resul t Performing Organization Address [facility] de Phone Number [facility] [address] [place] [address] * CHLAMYDIA TRACHOMATIS/N. GONORRHOEAE (GC) DNA, SDA (URINE) (08/22/2012 7:50 AM EDT) Chlamydia trachomatis DNA NOT DETECTED NOT DETECTED [facility] Comment:{CHLAMYDIA TRACHOMAT IS DNA, SDA {[id number]) Neisseria gonorrhoeae DNA NOT DETECTED NOT DETECTED [facility] Comment:{NEISSERIA GONORRHOE AE DNA, SDA {[id number]) 08/22/2012 7:50 AM EDT 08/22/2012 12:55 PM EDT Narrative Resulting Agency Comment [id number] us [facility] Final Resul t Performing Organization Address [facility] de Phone Number [facility] [address] [place] [address] documented in this encounter Visit Diagnoses Diagnosis Vaginal discharge Leukorrhea, not specified as infective documented in this encounter Additional Health Concerns Infection Onset Date Last Indicated Resolved Time COVID-19 Rule-Out 01/13/2020 01/13/2020 01/13/2020 2:43 PM EST COVID-19 Rule-Out 02/22/2020 02/22/2020 02/22/2020 5:30 PM EST COVID-19 Confirmed 02/22/2020 02/22/2020 1 8:12 PM EDT COVID-19 Confirmed 03/09/2021 03/09/2021 2 8:12 PM EDT documented as of this encounter Care Teams Assistant Director Of Security Relationship Specialty Start Date End Date Osiris Sanchez MD [address] [place] [address] PCP - General 07/24/06 06/09/15 Jose Mcguire MD PCP - General Internal Medicine 06/10/15 05/19/19 Vandana Pierce MD PCP - General Family Medicine 05/20/19 08/03/20 Norman Arita MD [address] [place] [address] PCP - General Internal Medicine 08/04/20 03/04/22 documented as of this encounter
--- OUTSIDE RECORDS SUMMARY | 2024-11-13 16:06 | XMS_ITS | Encounter Summary ---
Author Organization [facility] Address [address] [place] [address] Care Team Providers Care Literacy Tutor Name Role Phone Osiris Sanchez MD Primary Care Provider [phone] Jose Mcguire MD Primary Care Provider Gela Vandana Tovar MD Primary Care Provider [phone] Norman Arita MD Primary Care Provider [phone] Reason for Visit * Reason Onset Date Comments Results 06/10/2007 Encounter Details Date Type Department Care Team (Late st Contact Info) Description 06/10/2007 Telephone [facility] [address] [place] [id number] Kiki France LPN Results Social History Tobacco Use Types Packs/Day Years [...] 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 NORMAL. PT SATISFIED. documented in this encounter Plan of Treatment [...] documented as of this encounter Care Teams Literacy Tutor Relationship Specialty Start Date End Date Osiris Sanchez MD [address] [place] [address] PCP - General 07/24/06 06/09/15 Jose Mcguire MD PCP - General Internal Medicine 06/10/15 05/19/19 Vandana Pierce MD PCP - General Family Medicine 05/20/19 08/03/20 Norman Arita MD [address] [place] [address] PCP - General Internal Medicine 08/04/20 03/04/22 documented as of this encounter
--- OUTSIDE RECORDS SUMMARY | 2024-11-13 16:06 | XMS_ITS | Encounter Summary ---
Author Organization [facility] Address [address] [place] [address] Care Team Providers Care Lead Solutions Architect Name Role Phone Jose Mcguire MD Primary Care Provider Vandana Vazquez MD Primary Care Provider [phone] Norman Arita MD Primary Care Provider [phone] Encounter Details Date Type Department Care Team (Late st Contact Info) Description 11/13/2017 Orders Only [facility] [address] [place] [address] Jose Mcguire MD Social History Tobacco Use [...] as of this encounter Progress Notes * Jose Mcguire - 11/15/2017 8:28 AM EDT . documented in this encounter Plan of Treatment Not on file documented as of this encounter Procedures * Due to [place] [employer] law, this organization might not be sharing negative HIV tests. Procedure Name Priority Date/Time Associated Diagnosis Comments HEMOGLOBIN A1C Routine 11/13/2017 4:53 PM EDT Routine history and physical examination of adult documented in this encounter Results * Due to [place] [employer] law, this organization might not be sharing negative HIV tests. * HEMOGLOBIN A1C (11/13/2017 4:53 PM EDT) Hemoglobin A1C 5.6 <5.7 % of total Hgb [facility] Comment: For the purpose of screening for the presence of diabetes: <5.7% Consistent with the absence of diabetes 5.7-6.4% Consistent with increased risk for diabetes (prediabetes) > or =6.5% Consistent with diabetes This assay result is consistent with a decreased risk of diabetes. Currently, no consensus exists regarding use of hemoglobin A1c for diagnosis of diabetes in children. According to [place] Diabetes Association (ADA) guidelines, hemoglobin A1c <7.0% represents optimal control in non- diabetic patients. Different metrics may apply to specific patient populations. Standards of Medical Care in Diabetes(ADA). Estimated Average Glucose 122 mg/dL (calc) [facility] 11/13/2017 4:53 PM EDT 11/14/2017 2:36 AM EDT Narrative Resulting Agency Comment [id number] Jose Mcguire MD LABORATORY Final Result Performing Organization Address City/State/[facility] Co de Phone Number [facility] [address] [place] [address] documented in this encounter Visit Diagnoses Diagnosis Routine history and physical examination of adult Routine general medical examination at a health care facility documented in this encounter Additional Health Concerns Infection Onset Date Last Indicated Resolved Time COVID-19 Rule-Out 01/13/2020 01/13/2020 01/13/2020 2:43 PM EST COVID-19 Rule-Out 02/22/2020 02/22/2020 02/22/2020 5:30 PM EST COVID-19 Confirmed 02/22/2020 02/22/2020 1 8:12 PM EDT COVID-19 Confirmed 03/09/2021 03/09/2021 2 8:12 PM EDT documented as of this encounter Care Teams Lead Solutions Architect Relationship Specialty Start Date End Date Jose Mcguire MD PCP - General Internal Medicine 06/10/15 05/19/19 Vandana Pierce MD PCP - General Family Medicine 05/20/19 08/03/20 Norman Arita MD [address] [place] [address] PCP - General Internal Medicine 08/04/20 03/04/22 documented as of this encounter
--- OUTSIDE RECORDS SUMMARY | 2024-11-13 16:06 | XMS_ITS | Encounter Summary ---
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 Procedure Name Priority Date/Time Associated Diagnosis Comments CHLAMYDIA TRACHOMATIS/N. GONORRHOEAE (GC) RNA, TMA (APTIMA GENITAL SWAB) Routine 04/18/2013 5:40 PM EST Vaginal discharge BV/VAGINITIS PANELDNA PROBE(AFFIRM) Routine 04/18/2013 5:40 PM EST Vaginal discharge documented in this encounter Results * Due to [place] state law, this organization might not be sharing negative HIV tests. * CHLAMYDIA TRACHOMATIS/N. GONORRHOEAE (GC) RNA, TMA (APTIMA GENITAL SWAB) (04/18/2013 5:40 PM EST) Chlamydia trachomatis rRNA NOT DETECTED NOT DETECTED [facility] Comment:{CHLAMYDIA TRACHOMAT IS RNA, TMA {[id number]) Neisseria Gonorrhoeae rRNA NOT DETECTED NOT DETECTED [facility] Comment:{NEISSERIA GONORRHOE AE RNA, TMA {[id number]) COMMENT SEE NOTE [facility] Comment: {COMMENT {[id number]) This test was performed using the APTIMA COMBO2 Assay ([employer] The analytical performance characteristics of this assay, when used to test SurePath specimens have been determined by [employer]. 04/18/2013 5:40 PM EST 04/18/2013 9:54 PM EST Narrative Resulting Agency Comment [id number] Jose Mcguire MD LABORATORY Final Result Performing Organization Address City/State/[facility] Co de Phone Number [facility] [address] [place] [address] * BV/VAGINITIS PANELDNA PROBE (04/18/2013 5:40 PM EST) Trichomonas vaginalis rRNA (Genital) NOT DETECTED NOT DETECTED [facility] Comment:{TRICHOMONAS: {[id number]) Gardnerella vaginalis rRNA (Genital) NOT DETECTED NOT DETECTED [facility] Comment:{GARDNERELLA: {[id number]) Yecenia sp rRNA (Vag) NOT DETECTED NOT DETECTED [facility] Comment:{YECENIA: {[id number]) 04/18/2013 5:40 PM EST 04/18/2013 9:54 PM EST Narrative Resulting Agency Comment [id number] Jose Mcguire MD LABORATORY Final Result [facility] [address] [place] [address] documented in this encounter Visit Diagnoses Diagnosis [...] documented as of this encounter Care Teams Heeler Relationship Specialty Start Date End Date Osiris Sanchez MD [address] [place] [address] PCP - General 07/24/06 06/09/15 Jose Mcguire MD PCP - General Internal Medicine 06/10/15 05/19/19 Vandana Pierce MD PCP - General Family Medicine 05/20/19 08/03/20 Norman Arita MD [address] [place] [address] PCP - General Internal Medicine 08/04/20 03/04/22 documented as of this encounter
--- OUTSIDE RECORDS SUMMARY | 2024-11-13 16:06 | XMS_ITS | Encounter Summary ---
Author Organization [facility] Address [address] [place] [address] Care Team Providers Care Order Packer Or Packager Name Role Phone Jose Mcguire MD Primary Care Provider Vandana Vazquez MD Primary Care Provider [phone] Norman Arita MD Primary Care Provider [phone] Encounter Details Date Type Department Care Team (Late st Contact Info) Description 03/06/2018 Orders Only [facility] [address] [place] [phone] Elizabeth Kim NP [address] [place] [address] Social History Tobacco Use Types Packs/Day Years [...] this encounter Procedures * Due to [place] [employer] law, this organization might not be sharing negative HIV tests. Procedure Name Priority Date/Time Associated Diagnosis Comments STREPTOCOCCUS, GROUP A CULTURE Routine 03/06/2018 12:14 PM EST Sore throat documented in this encounter Results * Due to [facility] law, this organization might not be sharing negative HIV tests. * STREPTOCOCCUS, GROUP A CULTURE (03/06/2018 12:14 PM EST) Culture, Streptococci Group A, Throat SEE NOTE [facility] Comment: STREPTOCOCCUS, GROUP A CULTURE MICRO NUMBER: [id number] TEST STATUS: FINAL SPECIMEN SOURCE: NOT GIVEN SPECIMEN QUALITY: ADEQUATE RESULT: No group A Streptococcus isolated 03/06/2018 12:1 4 PM EST 03/06/2018 6:27 PM EST Narrative Resulting Agency Comment [id number] Elizabeth Kim NP LABORATORY Final Result Performing Organization Address City/State/[facility] de Phone Number [facility] [address] [place] [address] documented in this encounter Visit Diagnoses Diagnosis [...] documented as of this encounter Care Teams Order Packer Or Packager Relationship Specialty Start Date End Date Jose Mcguire MD PCP - General Internal Medicine 06/10/15 05/19/19 Vandana Pierce MD PCP - General Family Medicine 05/20/19 08/03/20 Norman Arita MD [address] [place] [address] PCP - General Internal Medicine 08/04/20 03/04/22 documented as of this encounter
--- OUTSIDE RECORDS SUMMARY | 2024-11-13 16:06 | XMS_ITS | Encounter Summary ---
Author Organization [facility] Address [address] [place] [address] Care Team Providers Care Part Time Flexible Clerk Name Role Phone Jose Mcguire MD Primary Care Provider Vandana Vazquez MD Primary Care Provider [phone] Norman Arita MD Primary Care Provider [phone] Reason for Referral * CONSULT AND TREATMENT (Routine) - Canceled Specialty Diagnoses / Procedures Referred By Adiel tijerina Referred To Contact Dermatology Diagnoses Cystic acne Jose Mcguire MD Rosenfeld, Thomas L, MD Phone: tel: fax: Referral ID Status Reason Start Date Expiration Date Visits Requested Visits Authorized [id number] Canceled Specialty Services Required 09/19/2017 09/19/2017 1 Question Answer When do you want this visit to occur? PT CONVENIENCE - Pt seen 09/07 Patient is being referred outside of [facility] for the following reason, however final determination for [id number] requests are made by the Referral Management Department Continuity of active patient care Track Order? No Please provide pertinent patient history. Cystic acne Where is patient being referred? If NOT Other , it qualifies for Meaningful Use, but first look at comment to right to determine if you need to print and have patient sign Release of Info Electronically Letter Other or Decline - Consent is signed Which provider/facility/agency would you like to refer to? [facility], [address], [address] [place], [address], Office phone: [phone] Please list the patient's preferred provider for this consult. Dr. Dallin Riggs, Encounter Details Date Type Department Care Team (Late st Contact Info) Description 09/19/2017 Orders Only [facility] Internal Medicine [address] [place] [address] Jose Mcguire MD Social History Tobacco Use [...] as of this encounter Plan of Treatment Scheduled Referrals Name Type Priority Associated Diagnoses Orde r Schedule CONSULT DERMATOLOGY NON-FC Referral Routine Cystic acne Ordered: 09/19/2017 documented as of this encounter Visit Diagnoses Diagnosis Cystic acne Other acne documented in this encounter Additional Health Concerns Infection Onset Date Last Indicated Resolved Time COVID-19 Rule-Out 01/13/2020 01/13/2020 01/13/2020 2:43 PM EST COVID-19 Rule-Out 02/22/2020 02/22/2020 02/22/2020 5:30 PM EST COVID-19 Confirmed 02/22/2020 02/22/2020 1 8:12 PM EDT COVID-19 Confirmed 03/09/2021 03/09/2021 2 8:12 PM EDT documented as of this encounter Care Teams Part Time Flexible Clerk Relationship Specialty Start Date End Date Jose Mcguire MD PCP - General Internal Medicine 06/10/15 05/19/19 Vandana Pierce MD PCP - General Family Medicine 05/20/19 08/03/20 Norman Arita MD [address] [place] [address] PCP - General Internal Medicine 08/04/20 03/04/22 documented as of this encounter
--- OUTSIDE RECORDS SUMMARY | 2024-11-13 16:06 | XMS_ITS | Encounter Summary ---
Author Organization [facility] Address [address] [place] [address] Care Team Providers Care [employer]er [employer] Name Role Phone Osiris Sanchez MD Primary Care Provider [phone] Jose Mcguire MD Primary Care Provider Gela Vandana Tovar MD Primary Care Provider Norman Arita MD Primary Care Provider [phone] Reason for Visit * Reason Onset Date Comments Refill Request 06/03/2013 Encounter Details Date Type Department Care Team (Late st Contact Info) Description 06/03/2013 Refill [facility] Internal Medicine [address] [place] [address] Juli Boothe, KANDIS [address] [place] [address] Refill Request Social History Tobacco Use Types [...] 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
--- OUTSIDE RECORDS SUMMARY | 2024-11-13 16:06 | XMS_ITS | Encounter Summary ---
Author Organization [facility] Address [address] [place] [address] Care Team Providers Care Claims Director Name Role Phone Osiris Sanchez MD Primary Care Provider [phone] Jose Mcguire MD Primary Care Provider Gela Vandana Tovar MD Primary Care Provider [phone] Norman Arita MD Primary Care Provider [phone] Encounter Details Date Type Department Care Team (Late st Contact Info) Description 07/09/2013 Orders Only [facility] Internal Medicine [address] [place] [address] Osiris Sanchez MD [address] [place] [address] Social History Tobacco Use Types Packs/Day Years [...] 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 Procedure Name Priority Date/Time Associated Diagnosis Comments HSV 1 AND 2 IGG HERPESELECT SPECIFIC ANTIBODY Routine 07/09/2013 3:48 PM EDT Screening for STD (sexually transmitted disease) documented in this encounter Results * Due to [facility] law, this organization might not be sharing negative HIV tests. * (ABNORMAL) HSV 1 AND 2 IGG HERPESELECT SPECIFIC ANTIBODY (07/09/2013 3:48 PM EDT) Herpes Simplex Virus 1 IgG 4.64(H) [facility] Comment:{HSV 1 IGG TYPE SPEC IFIC AB {[id number]) Herpes simplex virus 2 Ab.IgG 1.07(H) [facility] Comment: {HSV 2 IGG TYPE SPECIFIC AB {[id number]) Value Interpretation ----- <0.90 Negative 0.90-1.10 Equivocal >1.10 Positive This assay utilizes recombinant type-specific antigens to differentiate HSV-1 from HSV-2 infections. A positive result cannot distinguish between recent and past infection. If recent HSV infection is suspected but the results are negative or equivocal, the assay should be repeated in 4-6 weeks. The performance characteristics of the assay have not been established for pediatric populations, immunocompromised patients, or screening. 07/09/2013 3:48 PM EDT 07/09/2013 10:03 PM EDT Narrative Resulting Agency Comment [id number] Osiris Sanchez MD LABORATORY Final Result [facility] [address] [place] [address] documented in this encounter Visit Diagnoses Diagnosis Screening for STD (sexually transmitted disease) Screening examination for venereal disease documented in this encounter Additional Health Concerns Infection Onset Date Last Indicated Resolved Time COVID-19 Rule-Out 01/13/2020 01/13/2020 01/13/2020 2:43 PM EST COVID-19 Rule-Out 02/22/2020 02/22/2020 02/22/2020 5:30 PM EST COVID-19 Confirmed 02/22/2020 02/22/2020 1 8:12 PM EDT COVID-19 Confirmed 03/09/2021 03/09/2021 2 8:12 PM EDT documented as of this encounter Care Teams Claims Director Relationship Specialty Start Date End Date Osiris Sanchez MD [address] [place] [address] PCP - General 07/24/06 06/09/15 Jose Mcguire MD PCP - General Internal Medicine 06/10/15 05/19/19 Vandana Pierce MD PCP - General Family Medicine 05/20/19 08/03/20 Norman Arita MD [address] [place] [address] PCP - General Internal Medicine 08/04/20 03/04/22 documented as of this encounter
--- OUTSIDE RECORDS SUMMARY | 2024-11-13 16:06 | XMS_ITS | Encounter Summary ---
Author Organization [facility] Address [address] [place] [address] Care Team Providers Care Hi Lift Operator Name Role Phone Osiris Sanchez MD Primary Care Provider [phone] Jose Mcguire MD Primary Care Provider Gela Vandana Tovar MD Primary Care Provider [phone] Norman Arita MD Primary Care Provider [phone] Encounter Details Date Type Department Care Team (Late st Contact Info) Description 12/26/2012 Orders Only [facility] Internal Medicine [address] [place] [address] Osiris Sanchez MD [address] [place] [address] Social History Tobacco Use Types Packs/Day Years [...] 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 documented in this encounter Plan of Treatment Not on file documented as of this encounter Procedures * Due to [facility] law, this organization might not be sharing negative HIV tests. Procedure Name Priority Date/Time Associated Diagnosis Comments VARICELLA-ZOSTER VIRUS (VZV) ANTIBODY IGG, SERUM Routine 12/26/2012 2:17 PM EDT Immunity status testing documented in this encounter Results * Due to [facility] law, this organization might not be sharing negative HIV tests. * VARICELLA-ZOSTER VIRUS (VZV) ANTIBODY IGG, SERUM (12/26/2012 2:17 PM EDT) Varicella zoster virus Ab.IgG 1.51 index Take the Interview Comment: {VARICELLA ZOSTER VIRUS ANTIBODY (IGG) {[id number]) Index Explanation of Results --------- < or = 0.90 Negative - No VZV IgG Antibody detected 0.91 - 1.09 Equivocal > or = 1.10 Positive - VZV IgG Antibody detected A positive result indicates that the patient has antibody to VZV but does not differentiate between infection (active or past) and vaccination. The clinical diagnosis must be interpreted in conjunction with the clinical signs and symptoms of the patient. This assay reliably measures immunity due to previous infection but may not always be sensitive enough to detect antibodies induced by vaccination. Thus, a negative result in a vaccinated individual does not necessarily indicate susceptibility to VZV infection. 12/26/2012 2:17 PM EDT 12/26/2012 7:29 PM EDT Narrative Resulting Agency Comment [id number] Osiris Sanchez MD LABORATORY Final Result [facility] [address] [place] [address] documented in this encounter Visit Diagnoses Diagnosis Immunity status testing Antibody response examination documented in this encounter Additional Health Concerns Infection Onset Date Last Indicated Resolved Time COVID-19 Rule-Out 01/13/2020 01/13/2020 01/13/2020 2:43 PM EST COVID-19 Rule-Out 02/22/2020 02/22/2020 02/22/2020 5:30 PM EST COVID-19 Confirmed 02/22/2020 02/22/2020 1 8:12 PM EDT COVID-19 Confirmed 03/09/2021 03/09/2021 2 8:12 PM EDT documented as of this encounter Care Teams Hi Lift Operator Relationship Specialty Start Date End Date Osiris Sanchez MD [address] [place] [address] PCP - General 07/24/06 06/09/15 Jose Mcguire MD PCP - General Internal Medicine 06/10/15 05/19/19 Vandana Pierce MD PCP - General Family Medicine 05/20/19 08/03/20 Norman Arita MD [address] [place] [address] PCP - General Internal Medicine 08/04/20 03/04/22 documented as of this encounter
--- OUTSIDE RECORDS SUMMARY | 2024-11-13 16:06 | XMS_ITS | Encounter Summary ---
Author Organization [facility] Address [address] [place] [address] Care Team Providers Care Tuber Operator Name Role Phone Osiris Sanchez MD Primary Care Provider [phone] Jose Mcguire MD Primary Care Provider Gela Vandana Tovar MD Primary Care Provider [phone] Norman Arita MD Primary Care Provider [phone] Encounter Details Date Type Department Care Team (Late st Contact Info) Description 02/21/2007 Orders Only [facility] Internal Medicine [address] [place] [address] Osiris Sanchez MD [address] [place] [address] Social History Tobacco Use Types Packs/Day Years [...] 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 Procedure Name Priority Date/Time Associated Diagnosis Comments CULTURE, URINE Routine 02/21/2007 UTI (URINARY TRACT INFECTION) URINALYSIS,MICROSCO PIC ONLY STAT (All results called to provider) 02/21/2007 URINALYSIS, DIP ONLY ( SITE STAT ONLY) STAT (All results called to provider) 02/21/2007 UTI (URINARY TRACT INFECTION) documented in this encounter Results * Due to [place] [employer] law, this organization might not be sharing negative HIV tests. * URINALYSIS,MICROSCOPIC ONLY (02/21/2007) WBC (URINE) 0-4 0-4/HPF [facility] (CLIA# [id number]) RBC (Urine Sed) 0 0-3/HPF [facility] (CLIA# [id number]) EPITHELIAL CELLS.SQUAMOUS (URINE SED) 0-5 0-5/HPF [facility] (CLIA# [id number]) EPITHELIAL CELLS.TRANSITIO NAL (URINE SED) 0 0-5/HPF [facility] (CLIA# [id number]) EPITHELIAL CELLS.RENAL (URINE SED) 0 0-3/HPF [facility] (CLIA# [id number]) BACTERIA (URINE) NONE SEEN NONE SEEN [facility] (CLIA# [id number]) 02/21/2007 02/22/2007 1:0 8 AM EST us Osiris Sanchez MD LAB SAME DAY RESULT Final Resul t [facility] (CLIA# [id number]) [address] [place] [address] * (ABNORMAL) CULTURE, URINE (02/21/2007) URINE CULTURE CLEAN VOID SEE TEXT(A) [facility] (CLIA# [id number]) Comment: SOURCE: URINE 1,000-10,000 CFU/ML GROUP B STREPTOCOCCUS ADDITIONAL ORGANISM(S), <10,000 CFU/ML. MAY REPRESENT NORMAL DEBI CONTAMINATION. NO FURTHER TESTING. 02/21/2007 02/22/2007 1:0 8 AM EST Osiris Sanchez MD LABORATORY Final Result Performing Organization Address [facility] Co de Phone Number [facility] (CLIA# [id number]) [address] [place] [address] * URINALYSIS, DIP ONLY ( SITE STAT ONLY) (02/21/2007) COLOR (URINE) YELLOW YELLOW [facility] (CLIA# [id number]) APPEARANCE (URINE) CLEAR CLEAR [facility] (CLIA# [id number]) SPECIFIC GRAVITY 1.010 1.001 - 1.035 [facility] (CLIA# [id number]) PH (URINE) 7.0 5.0 - 8.0 [facility] (CLIA# [id number]) PROTEIN (URINE) NEG NEG [facility] (CLIA# [id number]) GLUCOSE (URINE) NEG NEG [facility] (CLIA# [id number]) Ketones (Urine) NEG NEG [facility] (CLIA# [id number]) BILIRUBIN (URINE) NEG NEG [facility] (CLIA# [id number]) BLOOD (URINE) TRACE NEG [facility] (CLIA# [id number]) WBC (URINE) TRACE NEG [facility] (CLIA# [id number]) NITRITE (URINE) NEG NEG [facility] (CLIA# [id number]) 02/21/2007 02/22/2007 1:0 8 AM EST Osiris Sanchez MD LAB SAME DAY RESULT Final Resul t Performing Organization Address [facility] Co de Phone Number [facility] (CLIA# [id number]) [address] [place] [address] documented in this encounter Visit Diagnoses Diagnosis UTI (URINARY TRACT INFECTION) Urinary tract infection, site not specified documented in this encounter Additional Health Concerns Infection Onset Date Last Indicated Resolved Time COVID-19 Rule-Out 01/13/2020 01/13/2020 01/13/2020 2:43 PM EST COVID-19 Rule-Out 02/22/2020 02/22/2020 02/22/2020 5:30 PM EST COVID-19 Confirmed 02/22/2020 02/22/2020 1 8:12 PM EDT COVID-19 Confirmed 03/09/2021 03/09/2021 2 8:12 PM EDT documented as of this encounter Care Teams Tuber Operator Relationship Specialty Start Date End Date Osiris Sanchez MD [address] [place] [address] PCP - General 07/24/06 06/09/15 Jose Mcguire MD PCP - General Internal Medicine 06/10/15 05/19/19 Vandana Pierce MD PCP - General Family Medicine 05/20/19 08/03/20 Norman Arita MD [address] [place] [address] PCP - General Internal Medicine 08/04/20 03/04/22 documented as of this encounter
--- OUTSIDE RECORDS SUMMARY | 2024-11-13 16:06 | XMS_ITS | Encounter Summary ---
Author Organization [facility] Address [address] [place] [address] Care Team Providers Care Die Developer Name Role Phone Osiris Sanchez MD Primary Care Provider [phone] Jose Mcguire MD Primary Care Provider Gela Vandana Tovar MD Primary Care Provider [phone] Norman Arita MD Primary Care Provider [phone] Encounter Details Date Type Department Care Team (Late st Contact Info) Description 08/12/2013 Orders Only May Internal Medicine [address] [place] [address] Osiris Sanchez MD [address] [place] [address] Social History Tobacco Use Types Packs/Day Years [...] 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 * Osiris Sanchez - 08/13/2013 11:03 AM EDTQuick Note: All results that have been ordered are not reported yet. Await pending results, before communicating with patient. documented in this encounter Plan of Treatment Scheduled Orders Name Type Priority Associated Diagnoses Orde r Schedule THYROID STIMULATING HORMONE (TSH) WITH FREE T4 REFLEX, SERUM Lab Routine Disorder of thyroid Expected: 08/12/2013 (Approximate), Expires: 08/12/2014 documented as of this encounter Procedures * Due to [place] SitScape law, this organization might not be sharing negative HIV tests. Procedure Name Priority Date/Time Associated Diagnosis Comments CBC INCLUDES DIFFERENTIAL AND PLATELET COUNT Routine 08/12/2013 11:34 AM EDT Screening for other disorders of blood and blood-forming organs TSH, 3RD GENERATION Routine 08/12/2013 1 1:34 AM EDT T4, FREE, SERUM Routine 08/12/2013 11:34 AM EDT Disorder of thyroid LIPID PANEL WITH REFLEX TO DIRECT LDL Routine 08/12/2013 11:34 AM EDT Hyperlipidemia BASIC METABOLIC PANEL WITH (GFR) Routine 08/12/2013 11:34 AM EDT Routine history and physical examination of adult documented in this encounter Results * Due to [place] SitScape law, this organization might not be sharing negative HIV tests. * TSH, 3RD GENERATION (08/12/2013 11:34 AM EDT) TSH 1.24 mIU/L [facility] Comment: {TSH {[id number]) Reference Range > or = 20 Years 0.40-4.50 Ranges First trimester 0.26-2.66 Second trimester 0.55-2.73 Third trimester 0.43-2.91 08/12/2013 11:3 4 AM EDT 08/12/2013 5:53 PM EDT Osiris Sanchez MD LABORATORY Final Result Performing Organization Address City/[facility]/ZIP Co de Phone Number [facility] [address] [place] [address] * T4, FREE, SERUM (08/12/2013 11:34 AM EDT) FT4 1.0 0.8 - 1.8 ng/dL [facility] Comment:{T4, FREE {[id number]) 08/12/2013 11:3 4 AM EDT 08/12/2013 5:53 PM EDT Narrative Resulting Agency Comment [id number] Osiris Sanchez MD LABORATORY Final Result Performing Organization Address [facility] Co de Phone Number [facility] [address] [place] [address] * BASIC METABOLIC PANEL WITH (GFR) (08/12/2013 11:34 AM EDT) Glucose 82 65 - 99 mg/dL [facility] Comment: {GLUCOSE {[id number]) Fasting reference interval Urea Nitrogen Blood (BUN) 10 7 - 25 mg/dL [facility] Comment:{UREA NITROGEN (BUN) {[id number]) Creatinine 0.69 0.50 - 1.10 mg/dL [facility] Comment:{CREATININE {[id number]) GFR 106 > OR = 60 mL/min/1. 73m2 [facility] Comment:{eGFR NON-AFR. AMERI CAN {[id number]) GFR () 123 > OR = 60 mL/min/1. 73m2 [facility] Comment:{eGFR AMERIC AN {[id number]) BUN/Creatinine Ratio NOT APPLICABLE 6 - 22 (calc) [facility] Comment:{BUN/CREATININE RATI O {[id number]) Sodium 142 135 - 146 mmol/L [facility] Comment:{SODIUM {[id number]) Potassium 4.5 3.5 - 5.3 mmol/L [facility] Comment:{POTASSIUM {[id number]) Chloride 107 98 - 110 mmol/L [facility] Comment:{CHLORIDE {[id number]) Carbon dioxide 24 19 - 30 mmol/L [facility] Comment:{CARBON DIOXIDE {[id number]) Calcium 9.2 8.6 - 10.2 mg/dL [facility] Comment:{CALCIUM {[id number]) 08/12/2013 11:3 4 AM EDT 08/12/2013 5:53 PM EDT Narrative [facility] - 08/12/2013 7:58 PM EDT Please note that this estimated GFR does not include an adjustment for the patient's height or weight, and can therefore, be viewed as reliable only for patients with heights between 60 and 72 . More precise quantification using a 24-hour urine sample or height-based algorithm is recommended for patients outside of this range of height and for those individuals with more precise needs for GFR calculation. Resulting Agency Comment [id number] us Osiris Sanchez MD LABORATORY Final Result [facility] [address] [place] [address] * (ABNORMAL) LIPID PANEL WITH REFLEX TO DIRECT LDL (08/12/2013 11:34 AM EDT) Cholesterol 218(H) 125 - 200 mg/dL [facility] Comment:{CHOLESTEROL, TOTAL {[id number]) HDL Cholesterol 47 > OR = 46 mg/dL [facility] Comment:{HDL CHOLESTEROL {[id number]) Triglyceride 169(H) <150 mg/dL [facility] Comment:{TRIGLYCERIDES {[id number]) LDL Cholesterol 137(H) <130 mg/dL (calc) [facility] Comment: {LDL-CHOLESTEROL {[id number]) Desirable range <100 mg/dL for patients with CHD or diabetes and <70 mg/dL for diabetic patients with known heart disease. CHOL/HDL Ratio 4.6 < OR = 5.0 (calc) [facility] Comment:{CHOL/HDLC RATIO {[id number]) Cholesterol Non-HDL 171(H) mg/dL (calc) [facility] Comment: {NON HDL CHOLESTEROL {[id number]) Target for non-HDL cholesterol is 30 mg/dL higher than LDL cholesterol target. 08/12/2013 11:3 4 AM EDT 08/12/2013 5:53 PM EDT Narrative Resulting Agency Comment [id number] us Osiris Sanchez MD LABORATORY Final Result [facility] [address] [place] [address] * CBC INCLUDES DIFFERENTIAL AND PLATELET COUNT (08/12/2013 11:34 AM EDT) WBC 4.2 3.8 - 10.8 Thousand/u L [facility] Comment:{WHITE BLOOD CELL CO UNT {[id number]) RBC 4.57 3.80 - 5.10 Million/uL [facility] Comment:{RED BLOOD CELL COUN T {[id number]) Hemoglobin 12.5 11.7 - 15.5 g/dL [facility] Comment:{HEMOGLOBIN {[id number]) Hematocrit 37.4 35.0 - 45.0 % [facility] Comment:{HEMATOCRIT {[id number]) MCV 81.7 80.0 - 100.0 fL [facility] Comment:{MCV {[id number]) MCH 27.3 27.0 - 33.0 pg [facility] Comment:{MCH {[id number]) MCHC 33.5 32.0 - 36.0 g/dL [facility] Comment:{MCHC {[id number]) RDW 13.9 11.0 - 15.0 % [facility] Comment:{RDW {[id number]) PLT 147 140 - 400 Thousand/u L [facility] Comment:{PLATELET COUNT {[id number]) MPV 10.0 7.5 - 11.5 fL [facility] Comment:{MPV {[id number]) Neutrophils # 2062 1500 - 7800 cells/uL [facility] Comment:{ABSOLUTE NEUTROPHIL S {[id number]) Lymphocytes # 1621 850 - 3900 cells/uL [facility] Comment:{ABSOLUTE LYMPHOCYTE S {[id number]) Monocytes # 256 200 - 950 cells/uL [facility] Comment:{ABSOLUTE MONOCYTES {[id number]) Eosinophils # 252 15 - 500 cells/uL [facility] Comment:{ABSOLUTE EOSINOPHIL S {[id number]) Basophils # 8 0 - 200 cells/uL [facility] Comment:{ABSOLUTE BASOPHILS {[id number]) Neutrophils % 49.1 % [facility] Comment:{NEUTROPHILS {[id number]) Lymphocytes % 38.6 % [facility] Comment:{LYMPHOCYTES {[id number]) Monocytes % 6.1 % [facility] Comment:{MONOCYTES {[id number]) Eosinophils % 6.0 % [facility] Comment:{EOSINOPHILS {[id number]) Basophils % 0.2 % [facility] Comment:{BASOPHILS {[id number]) 08/12/2013 11:3 4 AM EDT 08/12/2013 5:53 PM EDT Narrative Resulting Agency Comment [id number] us Osiris Sanchez MD LAB SAME DAY RESULT Final Resul t [facility] [address] [place] [address] documented in this encounter Visit Diagnoses Diagnosis Screening for other disorders of blood and blood-forming organs- Primary Hyperlipidemia Other and unspecified hyperlipidemia Routine history and physical examination of adult Routine general medical examination at a health care facility Disorder of thyroid Unspecified disorder of thyroid documented in this encounter Additional Health Concerns Infection Onset Date Last Indicated Resolved Time COVID-19 Rule-Out 01/13/2020 01/13/2020 01/13/2020 2:43 PM EST COVID-19 Rule-Out 02/22/2020 02/22/2020 02/22/2020 5:30 PM EST COVID-19 Confirmed 02/22/2020 02/22/2020 1 8:12 PM EDT COVID-19 Confirmed 03/09/2021 03/09/2021 2 8:12 PM EDT documented as of this encounter Care Teams Die Developer Relationship Specialty Start Date End Date Osiris Sanchez MD [address] [place] [address] PCP - General 07/24/06 06/09/15 Jose Mcguire MD PCP - General Internal Medicine 06/10/15 05/19/19 Vandana Pierce MD PCP - General Family Medicine 05/20/19 08/03/20 Norman Arita MD [address] [place] [address] PCP - General Internal Medicine 08/04/20 03/04/22 documented as of this encounter
--- OUTSIDE RECORDS SUMMARY | 2024-11-13 16:06 | XMS_ITS | Encounter Summary ---
Author Organization [facility] Address [address] [place] [address] Care Team Providers Care Senior Graphic Designer Name Role Phone Vandana Pierce MD Primary Care Provider [phone] Norman Arita MD Primary Care Provider [phone] Reason for Visit * Reason Comments Mammogram Encounter Details Date Type Department Care Team (Late st Contact Info) Description 06/04/2020 Telephone [facility]. 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 No / Unsure 06/07/2020 1:32 PM EDT documented as of this encounter Miscellaneous Notes * Telephone Encounter - Davis Collins MD - 06/04/2020 10:28 AM EDT Order placed for mammogram , j * Telephone Encounter - Jeanette Stauffer - 06/04/2020 10:18 AM EDT Patient has orders in for a breast and axilla ultrasound due to a lump per radiology protocol a diagnostic mammogram order would need to be added incase the radiologist needs it. Can this order be added please? Thank you! documented in this encounter Plan of Treatment Not on file documented as of this encounter Visit Diagnoses Not on filedocumented in this encounter Additional Health Concerns Infection Onset Date Last Indicated Resolved Time COVID-19 Confirmed 03/09/2021 03/09/2021 8:12 PM EDT documented as of this encounter Care Teams Senior Graphic Designer Relationship Specialty Start Date End Date Vandana Pierce MD PCP - General Family Medicine 05/20/19 08/03/20 Norman Arita MD [address] [place] [address] PCP - General Internal Medicine 08/04/20 03/04/22 documented as of this encounter
--- OUTSIDE RECORDS SUMMARY | 2024-11-13 16:06 | XMS_ITS | Encounter Summary ---
Author Organization [facility] Address [address] [place] [address] Care Team Providers Care Is Consultant Name Role Phone Osiris Sanchez MD Primary Care Provider [phone] Jose Mcguire MD Primary Care Provider Gela Vandana Tovar MD Primary Care Provider [phone] Norman Arita MD Primary Care Provider [phone] Encounter Details Date Type Department Care Team (Late st Contact Info) Description 07/08/2012 Orders Only May Internal Medicine [address] [place] [address] Osiris Sanchez MD [address] [place] [address] Social History Tobacco Use Types Packs/Day Years [...] 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 documented in this encounter Plan of Treatment Scheduled Orders Name Type Priority Associated Diagnoses Orde r Schedule THYROID STIMULATING HORMONE (TSH) WITH FREE T4 REFLEX, SERUM Lab Routine Disorder of thyroid Expected: 10/06/2012 (Approximate), Expires: 10/06/2013 documented as of this encounter Procedures * Due to [place] Score[employer] law, this organization might not be sharing negative HIV tests. Procedure Name Priority Date/Time Associated Diagnosis Comments CHLAMYDIA TRACHOMATIS/N. GONORRHOEAE (GC) DNA, SDA (URINE) Routine 07/08/2012 5:15 PM EDT CULTURE, GENITAL Routine 07/08/2012 5:15 PM EDT Vaginitis and vulvovaginitis documented in this encounter Results * Due to [place] Score[employer] law, this organization might not be sharing negative HIV tests. * T4, FREE, SERUM (10/18/2012 6:56 AM EDT) FT4 1.1 0.8 - 1.8 ng/dL [facility] Comment:{T4, FREE {[id number]) 10/18/2012 6:56 AM EDT 10/18/2012 11:52 AM EDT Narrative Resulting Agency Comment [id number] Osiris Sanchez MD LABORATORY Final Result [facility] [address] [place] [address] * (ABNORMAL) LIPID PANEL WITH REFLEX TO DIRECT LDL (10/18/2012 6:56 AM EDT) Cholesterol 193 125 - 200 mg/dL [facility] Comment:{CHOLESTEROL, TOTAL {[id number]) HDL Cholesterol 34(L) > OR = 46 mg/dL [facility] Comment:{HDL CHOLESTEROL {[id number]) Triglyceride 295(H) <150 mg/dL [facility] Comment:{TRIGLYCERIDES {[id number]) LDL Cholesterol 100 <130 mg/dL (calc) [facility] Comment: {LDL-CHOLESTEROL {[id number]) Desirable range <100 mg/dL for patients with CHD or diabetes and <70 mg/dL for diabetic patients with known heart disease. CHOL/HDL Ratio 5.7(H) < OR = 5.0 (calc) [facility] Comment:{CHOL/HDLC RATIO {[id number]) Cholesterol Non-HDL 159 mg/dL (calc) [facility] Comment: {NON HDL CHOLESTEROL {[id number]) Target for non-HDL cholesterol is 30 mg/dL higher than LDL cholesterol target. 10/18/2012 6:56 AM EDT 10/18/2012 11:52 AM EDT Narrative Resulting Agency Comment [id number] Osiris Sanchez MD LABORATORY Final Result Performing Organization Address City/State/[facility] [[email or web address]] Co de Phone Number [facility] [address] [place] [address] * CHLAMYDIA TRACHOMATIS/N. GONORRHOEAE (GC) DNA, SDA (URINE) (07/08/2012 5:15 PM EDT) Chlamydia trachomatis DNA NOT DETECTED NOT DETECTED [facility] Comment:{CHLAMYDIA TRACHOMAT IS DNA, SDA {[id number]) Neisseria gonorrhoeae DNA NOT DETECTED NOT DETECTED [facility] Comment:{NEISSERIA GONORRHOE AE DNA, SDA {[id number]) COMMENT SEE NOTE [facility] Comment: {COMMENT {[id number]) This test was performed using the [employer] ProbeTec(TM) Chlamydia trachomatis and Neisseria gonorrhoeae Amplified DNA Assays. We received a BD Superior [employer] collection device with a non-specific order. Based on the specimen submitted the CT/NG DNA, SDA test was performed. If this is not what you intended to order, please contact your local manager client service immediately so that we can adjust our billing appropriately. You may also inquire about alternative or additional testing. 07/08/2012 5:15 PM EDT 07/08/2012 9:46 PM EDT Osiris Sanchez MD LABORATORY Final Result Performing Organization Address City/[facility]/ZIP Co de Phone Number [facility] [address] [place] [address] * CULTURE, GENITAL (07/08/2012 5:15 PM EDT) Bacteria culture (Genital) SEE NOTE [facility] Comment: {CULTURE, GENITAL {[id number]) CULTURE, GENITAL MICRO NUMBER: [id number] TEST STATUS: FINAL SPECIMEN SOURCE: GENITAL SPECIMEN QUALITY: ADEQUATE RESULT: Growth of normal urogenital azar 07/08/2012 5:15 PM EDT 07/08/2012 9:46 PM EDT Narrative Resulting Agency Comment [id number] Osiris Sanchez MD LABORATORY Final Result Performing Organization Address [facility] [[email or web address]] Co de Phone Number [facility] [address] [place] [address] documented in this encounter Visit Diagnoses Diagnosis Hyperlipidemia- Primary Other and unspecified hyperlipidemia Disorder of thyroid Unspecified disorder of thyroid Vaginitis and vulvovaginitis Vaginitis and vulvovaginitis, unspecified documented in this encounter Additional Health Concerns Infection Onset Date Last Indicated Resolved Time COVID-19 Rule-Out 01/13/2020 01/13/2020 01/13/2020 2:43 PM EST COVID-19 Rule-Out 02/22/2020 02/22/2020 02/22/2020 5:30 PM EST COVID-19 Confirmed 02/22/2020 02/22/2020 1 8:12 PM EDT COVID-19 Confirmed 03/09/2021 03/09/2021 2 8:12 PM EDT documented as of this encounter Care Teams Is Consultant Relationship Specialty Start Date End Date Osiris Sanchez MD [address] [place] [address] PCP - General 07/24/06 06/09/15 Jose Mcguire MD PCP - General Internal Medicine 06/10/15 05/19/19 Vandana Pierce MD PCP - General Family Medicine 05/20/19 08/03/20 Norman Arita MD [address] [place] [address] PCP - General Internal Medicine 08/04/20 03/04/22 documented as of this encounter
--- OUTSIDE RECORDS SUMMARY | 2024-11-13 16:06 | XMS_ITS | Encounter Summary ---
Author Organization [facility] Address [address] [place] [address] Care Team Providers Care Unit Supervisor Name Role Phone Osiris Sanchez MD Primary Care Provider [phone] Jose Mcguire MD Primary Care Provider Gela Vandana Tovar MD Primary Care Provider [phone] Norman Arita MD Primary Care Provider [phone] Encounter Details Date Type Department Care Team (Late st Contact Info) Description 04/01/2007 Orders Only May Internal Medicine [address] [place] [address] Osiris Sanchez MD [address] [place] [address] Social History Tobacco Use Types Packs/Day Years [...] 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 Procedure Name Priority Date/Time Associated Diagnosis Comments BASIC METABOLIC PANEL Routine 04/01/2007 VAGINAL YEAST INFECTION CBC 5 PART DIFF Routine 04/01/2007 VAGINAL YEAST INFECTION CARDIAC RISK/LIPID PROFILE I Routine 04/01/2007 VAGINAL YEAST INFECTION documented in this encounter Results * Due to [place] law, this organization might not be sharing negative HIV tests. * (ABNORMAL) CARDIAC RISK/LIPID PROFILE I (04/01/2007) CHOLESTEROL, TOTAL 175 125 - 200 MG/DL [facility] (CLIA# [id number]) TRIGLYCERIDES 150(H) 30 - 149 MG/DL [facility] (CLIA# [id number]) HDL-CHOLESTEROL 36(L) 40 - 77 MG/DL [facility] (CLIA# [id number]) LDL-CHOLESTEROL 109 62 - 130 MG/DL [facility] (CLIA# [id number]) Comment: RISK CATEGORY: LDL-CHOLESTEROL GOAL CHD AND CHD RISK EQUIVALENTS: <100 MULTIPLE (2+) FACTORS: <130 ZERO TO ONE RISK FACTOR: <160 CHD RELATIVE RISK RATIO (TOTAL/HDL) 4.86 0.0 - 5.0 [facility] (CLIA# [id number]) Comment:(1.2 X AVERAGE) 04/01/2007 04/01/2007 12: 10 PM EST us Osiris Sanchez MD LABORATORY Final Result [facility] (CLIA# [id number]) [address] [place] [address] * BASIC METABOLIC PANEL (04/01/2007) CALCIUM 8.9 8.6 - 10.2 MG/DL [facility] (CLIA# [id number]) BUN 7 7 - 25 MG/DL [facility] (CLIA# [id number]) CREATININE 0.70 0.50-1.30/ 1.20 MG/DL [facility] (CLIA# [id number]) BUN/Creatinine Ratio 10 6 - 25 [facility] (CLIA# [id number]) Glucose 88 65 - 99 MG/DL [facility] (CLIA# [id number]) SODIUM 139 135 - 146 MMOL/L [facility] (CLIA# [id number]) POTASSIUM 3.9 3.5 - 5.3 MMOL/L [facility] (CLIA# [id number]) CHLORIDE 105 98 - 110 MMOL/L [facility] ([facility]# [id number]) CARBON DIOXIDE 26 21 - 33 MMOL/L [facility] (CLIA# [id number]) 04/01/2007 04/01/2007 12: 10 PM EST Osiris Sanchez MD LAB SAME DAY RESULT Final Resul t [facility] (CLIA# [id number]) [address] [place] [address] * (ABNORMAL) CBC 5 PART DIFF (04/01/2007) WHITE BLOOD COUNT 3.8 3.8 - 10.8 THOUS/UL [facility] (CLIA# [id number]) RBC 4.40 3.80 - 5.10 MIL/UL [facility] (CLIA# [id number]) Hemoglobin 12.7 11.7 - 15.5 G/DL [facility] (CL[facility]# [id number]) HCT (HEMATOCRIT) 37.3 35.0 - 45.0 % [facility] (CLIA# [id number]) MCV 84.7 80.0 - 100.0 FL [facility] (CLIA# [id number]) MCH 28.8 27.0 - 33.0 [facility] (CLIA# [id number]) MCHC 34.0 32.0 - 36.0 G/DL [facility] (CLIA# [id number]) BAND % 0 0 - 5 % [facility] (CLIA# [id number]) NEUTROPHIL % 42(L) 48 - 75 % [facility] (CLIA# [id number]) LYMPHOCYTE % 45(H) 17 - 40 % [facility] (CLIA# [id number]) MONOCYTE % 9 0 - 14 % [facility] (CLIA# [id number]) EOSINOPHIL % 3 0 - 5 % [facility] (CLIA# [id number]) BASOPHIL % 1 0 - 3 % [facility] (CLIA# [id number]) ATYPICAL LYMPHOCYTE % 0 0 - 5 % [facility] (CLIA# [id number]) PLATELETS 148 140 - 400 THOUS/UL [facility] (CLIA# [id number]) BANDS # 0 0 - 750 CELLS/MCL [facility] (CLIA# [id number]) NEUTROPHILS # 1596 1500 - 7800 CELLS/MCL [facility] (CLIA# [id number]) LYMPHOCYTES # 1710 850 - 3900 CELLS/MCL [facility] (CLIA# [id number]) MONOCYTES # 342 200 - 950 CELLS/MCL [facility] (CLIA# [id number]) EOSINOPHILS # 114 15 - 550 CELLS/MCL [facility] (CLIA# [id number]) BASOPHILS # 38 0 - 200 CELLS/MCL [facility] (CLIA# [id number]) ATYPICAL LYMPHOCYTES # 0 0 - 200 /UL [facility] (CLIA# [id number]) RDW 12.8 11.0 - 15.0 % [facility] (CLIA# [id number]) MPV 9.8 7.5 - 11.5 FL [facility] (CLIA# [id number]) 04/01/2007 04/01/2007 12: 10 PM EST us Osiris Sanchez MD LAB SAME DAY RESULT Final Resul t [facility] (CLIA# [id number]) [address] [place] [address] documented in this encounter Visit Diagnoses Diagnosis VAGINAL YEAST INFECTION Candidiasis of vulva and vagina documented in this encounter Additional Health Concerns Infection Onset Date Last Indicated Resolved Time COVID-19 Rule-Out 01/13/2020 01/13/2020 01/13/2020 2:43 PM EST COVID-19 Rule-Out 02/22/2020 02/22/2020 02/22/2020 5:30 PM EST COVID-19 Confirmed 02/22/2020 02/22/2020 1 8:12 PM EDT COVID-19 Confirmed 03/09/2021 03/09/2021 2 8:12 PM EDT documented as of this encounter Care Teams Unit Supervisor Relationship Specialty Start Date End Date Osiris Sanchez MD [address] [place] [address] PCP - General 07/24/06 06/09/15 Jose Mcguire MD PCP - General Internal Medicine 06/10/15 05/19/19 Vandana Pierce MD PCP - General Family Medicine 05/20/19 08/03/20 Norman Arita MD [address] [place] [address] PCP - General Internal Medicine 08/04/20 03/04/22 documented as of this encounter
--- OUTSIDE RECORDS SUMMARY | 2024-11-13 16:06 | XMS_ITS | Encounter Summary ---
Author Organization [facility] Address [address] [place] [address] Care Team Providers Care Garbage Truck Dispatcher Name Role Phone Oisris Sanchez MD Primary Care Provider [phone] Jose Mcguire MD Primary Care Provider Gela Vandana Tovar MD Primary Care Provider [phone] Norman Arita MD Primary Care Provider [phone] Encounter Details Date Type Department Care Team (Late st Contact Info) Description 07/17/2013 Orders Only [facility] [address] [place] [phone] Cedric Carter MD [facility] [address] [address] Social History Tobacco Use Types Packs/Day Years [...] 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 Patient continues to have discharge and will follow up with her pcp. * Cedric Carter MD - 07/18/2013 2:41 PM EDTQuick Note: Please call pt and advise BV panel is negative. She should f/u with her pcp if vaginal discharge persists * Cedric Carter MD - 07/17/2013 7:57 PM EDTQuick Note: ua noted, not on abx documented in this encounter Plan of Treatment Not on file documented as of this encounter Procedures * Due to [place] state law, this organization might not be sharing negative HIV tests. Procedure Name Priority Date/Time Associated Diagnosis Comments CULTURE, URINE, ROUTINE Routine 07/17/2013 5:14 PM EDT AP (abdominal pain) Vaginitis URINALYSIS, MICROSCOPIC STAT (All results called to provider) 07/17/2013 5:14 PM EDT AP (abdominal pain) Vaginitis BV/VAGINITIS PANELDNA PROBE(AFFIRM) Routine 07/17/2013 4:51 PM EDT AP (abdominal pain) Vaginitis CULTURE, HERPES SIMPLEXVIRUS WITH TYPING Routine 07/17/2013 4:51 PM EDT AP (abdominal pain) Vaginitis WET PREP STAT (All results called to provider) 07/17/2013 4:51 PM EDT AP (abdominal pain) Vaginitis documented in this encounter Results * Due to [place] state law, this organization might not be sharing negative HIV tests. * CULTURE, URINE, ROUTINE (07/17/2013 5:14 PM EDT) Bacteria culture (Urine) SEE NOTE [facility] Comment: {CULTURE, URINE, ROUTINE {[id number]) CULTURE, URINE, ROUTINE MICRO NUMBER: [id number] TEST STATUS: FINAL SPECIMEN SOURCE: URINE SPECIMEN QUALITY: ADEQUATE RESULT: No Growth 07/17/2013 5:14 PM EDT 07/17/2013 5:47 PM EDT Narrative Resulting Agency Comment [id number] Cedric Carter MD LABORATORY Final Resul t [facility] [address] [place] [address] * (ABNORMAL) URINALYSIS, MICROSCOPIC (07/17/2013 5:14 PM EDT) WBC (Urine) 0-5 < OR = 5 /HPF [facility] Comment:{WBC {[id number]) Epithelial cells.squamous (Urine sed) 6-10(A) < OR = 5 /HPF [facility] Comment:{SQUAMOUS EPITHELIAL CELLS {[id number]) Bacteria (Urine) FEW(A) NONE SEEN /HPF [facility] Comment:{BACTERIA {[id number]) Service comment 01 MANY MUCOUS THREADS [facility] Comment:{COMMENTS {[id number]) Service comment 01 See Below [facility] Comment: {NOTE {[id number]) This urine was analyzed for the presence of WBC, RBC, bacteria, casts, and other formed elements. Only those elements seen were reported. 07/17/2013 5:14 PM EDT 07/17/2013 5:47 PM EDT Narrative Resulting Agency Comment [id number] Cedric Carter MD LAB SAME DAY RESULT Final R esult Performing Organization Address [facility] Co de Phone Number [facility] [address] [place] [address] * CULTURE, HERPES SIMPLEXVIRUS WITH TYPING (07/17/2013 4:51 PM EDT) Herpes simplex virus identified SEE NOTE [facility] Comment: {HERPES SIMPLEX VIRUS CULTURE W/RFL TO TYPING {[id number]) HERPES SIMPLEX VIRUS CULTURE W/RFL TO TYPING MICRO NUMBER: [id number] TEST STATUS: FINAL SPECIMEN SOURCE: NOT GIVEN SPECIMEN QUALITY: ADEQUATE HSV CULTURE: Not isolated 07/17/2013 4:51 PM EDT 07/17/2013 5:09 PM EDT Narrative Resulting Agency Comment [id number] Cedric Carter MD LABORATORY Final Resul t Performing Organization Address [facility] Co de Phone Number [facility] [address] [place] [address] * BV/VAGINITIS PANELDNA PROBE (07/17/2013 4:51 PM EDT) Trichomonas vaginalis rRNA (Genital) NOT DETECTED NOT DETECTED [facility] Comment:{TRICHOMONAS: {[id number]) Gardnerella vaginalis rRNA (Genital) NOT DETECTED NOT DETECTED [facility] Comment:{GARDNERELLA: {[id number]) Yecenia sp rRNA (Vag) NOT DETECTED NOT DETECTED [facility] Comment:{YECENIA: {[id number]) 07/17/2013 4:51 PM EDT 07/17/2013 5:09 PM EDT Narrative Resulting Agency Comment [id number] Cedric Carter MD LABORATORY Final Resul t Performing Organization Address [facility] Co de Phone Number [facility] [address] [place] [address] * WET PREP (07/17/2013 4:51 PM EDT) Specimen source NOT GIVEN [facility] Comment:{SOURCE: {[id number]) Microscopic observation NO CLUE CELLS SEEN [facility] Comment: {RESULT: {[id number]) NO TRICHOMONAS VAGINALIS SEEN. NO FUNGAL ELEMENTS SEEN. 07/17/2013 4:51 PM EDT 07/17/2013 5:09 PM EDT Narrative Resulting Agency Comment [id number] us Cedric Carter MD LAB SAME DAY RESULT Final R esult [facility] [address] [place] [address] documented in this encounter Visit Diagnoses Diagnosis AP (abdominal pain) Abdominal pain, unspecified site Vaginitis Vaginitis and vulvovaginitis, unspecified documented in this encounter Additional Health Concerns Infection Onset Date Last Indicated Resolved Time COVID-19 Rule-Out 01/13/2020 01/13/2020 01/13/2020 2:43 PM EST COVID-19 Rule-Out 02/22/2020 02/22/2020 02/22/2020 5:30 PM EST COVID-19 Confirmed 02/22/2020 02/22/2020 1 8:12 PM EDT COVID-19 Confirmed 03/09/2021 03/09/2021 2 8:12 PM EDT documented as of this encounter Care Teams Garbage Truck Dispatcher Relationship Specialty Start Date End Date Osiris Sanchez MD [address] [place] [address] PCP - General 07/24/06 06/09/15 Jose Mcugire MD PCP - General Internal Medicine 06/10/15 05/19/19 Vandana Pierce MD PCP - General Family Medicine 05/20/19 08/03/20 [place] [address] PCP - General Internal Medicine 08/04/20 03/04/22 documented as of this encounter
--- OUTSIDE RECORDS SUMMARY | 2024-11-13 16:06 | XMS_ITS | Encounter Summary ---
Author Organization [facility] Address [address] [place] [address] Care Team Providers Care Ekg/Ecg Technician Name Role Phone Vandana Pierce MD Primary Care Provider Norman Arita MD Primary Care Provider [phone] Reason for Visit * Reason Onset Date Comments Refill Request 06/28/2020 Encounter Details Date Type Department Care Team (Late st Contact Info) Description 06/28/2020 Refill Medicine [facility] [address] [place] [phone] Davis Damon MD [address] [place] [address] Refill Request Social History Tobacco Use Types [...] Date Job End Date financial counselor, 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 No / Unsure 06/29/2020 2:23 PM EDT documented as of this encounter Miscellaneous Notes * Telephone Encounter - Kenny Deleon LPN - 06/29/2020 7:54 AM EDT Pt last apt with MD was 11/26/18 documented in this encounter Plan of Treatment Not on file documented as of this encounter Visit Diagnoses Not on filedocumented in this encounter Additional Health Concerns Infection Onset Date Last Indicated Resolved Time COVID-19 Confirmed 03/09/2021 03/09/2021 2 8:12 PM EDT documented as of this encounter Care Teams Ekg/Ecg Technician Relationship Specialty Start Date End Date Vandana Pierce MD PCP - General Family Medicine 05/20/19 08/03/20 Norman Arita MD [address] [place] [address] PCP - General Internal Medicine 08/04/20 03/04/22 documented as of this encounter
--- OUTSIDE RECORDS SUMMARY | 2024-11-13 16:06 | XMS_ITS | Encounter Summary ---
Author Organization [facility] Address [address] [place] [address] Care Team Providers Care [employer] French Teacher Name Role Phone Osiris Sanchez MD Primary Care Provider [phone] Jose Mcguire MD Primary Care Provider Gela Vandana Tovar MD Primary Care Provider [phone] Norman Arita MD Primary Care Provider [phone] Encounter Details Date Type Department Care Team (Late st Contact Info) Description 02/07/2007 Orders Only [facility] [address] [place] [address] Osiris Sanchez MD [address] [place] [address] Social History Tobacco Use Types Packs/Day Years [...] 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 Procedure Name Priority Date/Time Associated Diagnosis Comments CHANI PREP Routine 02/07/2007 VAGINITIS VAGINAL DISCHARGE VAGINAL YEAST INFECTION CULTURE,VAGINAL Routine 02/07/2007 VAGINITIS VAGINAL DISCHARGE VAGINAL YEAST INFECTION documented in this encounter Results * Due to [place] law, this organization might not be sharing negative HIV tests. * (ABNORMAL) CULTURE,VAGINAL (02/07/2007) Result(s) SEE TEXT(A) [facility] (CLIA# [id number]) Comment: SOURCE: VAGINA MODERATE YEAST MANY GROUP B STREPTOCOCCUS PLUS NORMAL DEBI 02/07/2007 02/07/2007 2:5 8 PM EST Osiris Sanchez MD LABORATORY Final Result Performing Organization Address [facility] de Phone Number [facility] (CLIA# [id number]) [address] [place] [address] * CHANI PREP (02/07/2007) FUNGUS (CHANI WET PREP) SEE TEXT [facility] (CLIA# [id number]) Comment: SOURCE: UNKNOWN NO FUNGAL ELEMENTS SEEN NO CLUE CELLS PRESENT 02/07/2007 02/07/2007 2:5 8 PM EST Osiris Sanchez MD LABORATORY Final Result Performing Organization Address [facility] de Phone Number [facility] (CLIA# [id number]) [address] [place] [address] documented in this encounter Visit Diagnoses Diagnosis VAGINITIS Vaginitis and vulvovaginitis, unspecified VAGINAL DISCHARGE Leukorrhea, not specified as infective VAGINAL YEAST INFECTION Candidiasis of vulva and vagina documented in this encounter Additional Health Concerns Infection Onset Date Last Indicated Resolved Time COVID-19 Rule-Out 01/13/2020 01/13/2020 01/13/2020 2:43 PM EST COVID-19 Rule-Out 02/22/2020 02/22/2020 02/22/2020 5:30 PM EST COVID-19 Confirmed 02/22/2020 02/22/2020 1 8:12 PM EDT COVID-19 Confirmed 03/09/2021 03/09/2021 2 8:12 PM EDT documented as of this encounter Care Teams [employer] French Teacher Relationship Specialty Start Date End Date Osiris Sanchez MD [address] [place] [address] PCP - General 07/24/06 06/09/15 Jose Mcguire MD PCP - General Internal Medicine 06/10/15 05/19/19 Vandana Pierce MD PCP - General Family Medicine 05/20/19 08/03/20 Norman Arita MD [address] [place] [address] PCP - General Internal Medicine 08/04/20 03/04/22 documented as of this encounter
--- OUTSIDE RECORDS SUMMARY | 2024-11-13 16:06 | XMS_ITS | Encounter Summary ---
Author Organization [facility] Address [address] [place] [address] Care Team Providers Care Job Specification Writer Name Role Phone Osiris Sanchez MD Primary Care Provider [phone] Jose Mcguire MD Primary Care Provider Gela Vandana Tovar MD Primary Care Provider [phone] Norman Arita MD Primary Care Provider [phone] Encounter Details Date Type Department Care Team (Late st Contact Info) Description 11/12/2006 Orders Only [facility] [address] [place] [address] Osiris Sanchez MD [address] [place] [address] Social History Tobacco Use Types Packs/Day Years [...] 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 Procedure Name Priority Date/Time Associated Diagnosis Comments THIN PREP PAP TEST WITH HUMAN PAPILLOMAVIRUS (HPV) DNA, HIGH Routine 11/12/2006 CHANI PREP Routine 11/12/2006 VAGINAL DISCHARGE VAGINITIS SCREENING FOR MALIGNANT NEOPLASM OF THE CERVIX CULTURE,VAGINAL Routine 11/12/2006 VAGINAL DISCHARGE VAGINITIS SCREENING FOR MALIGNANT NEOPLASM OF THE CERVIX documented in this encounter Results * Due to [place] [facility] law, this organization might not be sharing negative HIV tests. * (ABNORMAL) THIN PREP PAP TEST WITH HUMAN PAPILLOMAVIRUS (HPV) DNA, HIGH (11/12/2006) THINPREP PAP TEST WITH HPV SEE TEXT(A) [facility] (CLIA# [id number]) Comment: THINPREP PAP TEST WITH HPV SOURCES: VAGINA, CERVIX, ENDOCERVIX CLINICAL HISTORY: LMP: 10/2006 NORMAL EXAM STATEMENT OF ADEQUACY: SATISFACTORY, ENDOCERVICAL/TRANSFORMATION ZONE COMPONENT IS ABSENT RESULT: NEGATIVE FOR INTRAEPITHELIAL LESION OR MALIGNANCY HPV DNA TEST: NOT DETECTED HIGH/INTERMEDIATE RISK HPV DNA SUBTYPES (16,18,31,33,35,39,45, 51,52,56,58,59,68) ARE NOT DETECTED. INTERPRETATION: DATA IS CONFLICTING REGARDING THE SIGNIFICANCE OF ENDOCERVICAL/TRANSFORMATION ZONE ELEMENTS. WHILE CROSS-SECTIONAL STUDIES INDICATE THAT EPITHELIAL LESIONS ARE MORE COMMON WHEN SUCH ELEMENTS ARE PRESENT, LONGITUDINAL STUDIES FAIL TO SHOW THAT WOMEN LACKING SUCH ELEMENTS ARE AT INCREASED RISK FOR EPITHELIAL LESIONS. ATTENTION TO REGULAR SCREENING IS SUGGESTED. (FROM THE RECOMMENDATIONS OF THE [place] 2001 CONFERENCE, FORUM ON SPECIMEN ADEQUACY, QUOTED IN [email or web address]). COMMENTS: HPV PERFORMED AT [facility], [address] [place] [address], [place], THEODORE ALFARO M.D., DIRECTOR RESULT DATE: 11/16/2006 TECHNOLOGIST: WB GYNECOLOGICAL CYTOLOGY IS A SCREENING PROCEDURE SUBJECT TO BOTH FALSE NEGATIVE AND FALSE POSITIVE RESULTS. IT IS MOST RELIABLE WHEN A SATISFACTORY SAMPLE IS OBTAINED ON A REGULAR REPETITIVE BASIS. RESULTS MUST BE INTERPRETED IN THE CONTEXT OF HISTORIC AND CURRENT CLINICAL INFORMATION. 11/12/2006 11/13/2006 1:5 3 PM EDT Narrative [facility] (CLIA# [id number]) - 11/19/2006 1:18 PM EDT Report Comments: HPV PERFORMED AT [facility], [address] [place] [address], THEODORE ALFARO M.D., DIRECTOR Osiris Sanchez MD PATHOLOGY-INTERFACED Final Resu lt Performing Organization Address [facility] Co de Phone Number [facility] (CLIA# [id number]) [address] [place] [address] * CULTURE,VAGINAL (11/12/2006) Result(s) SEE TEXT [facility] (CLIA# [id number]) Comment: SOURCE: VAGINA NORMAL DEBI 11/12/2006 11/12/2006 11: 37 PM EDT Osiris Sanchez MD LABORATORY Final Result Performing Organization Address [facility] Co de Phone Number [facility] (CLIA# [id number]) [address] [place] [address] * CHANI PREP (11/12/2006) FUNGUS (CHANI WET PREP) SEE TEXT [facility] (CLIA# [id number]) Comment: SOURCE: VAGINA NO FUNGAL ELEMENTS SEEN NO CLUE CELLS PRESENT 11/12/2006 11/12/2006 11: 37 PM EDT Osiris Sanchez MD LABORATORY Final Result Performing Organization Address [facility] Co de Phone Number [facility] (CLIA# [id number]) [address] [place] [address] documented in this encounter Visit Diagnoses Diagnosis VAGINAL DISCHARGE Leukorrhea, not specified as infective VAGINITIS Vaginitis and vulvovaginitis, unspecified SCREENING FOR MALIGNANT NEOPLASM OF THE CERVIX Screening for malignant neoplasm of the cervix documented in this encounter Additional Health Concerns Infection Onset Date Last Indicated Resolved Time COVID-19 Rule-Out 01/13/2020 01/13/2020 01/13/2020 2:43 PM EST COVID-19 Rule-Out 02/22/2020 02/22/2020 02/22/2020 5:30 PM EST COVID-19 Confirmed 02/22/2020 02/22/2020 1 8:12 PM EDT COVID-19 Confirmed 03/09/2021 03/09/2021 2 8:12 PM EDT documented as of this encounter Care Teams Job Specification Writer Relationship Specialty Start Date End Date Osiris Sanchez MD [address] [place] [address] PCP - General 07/24/06 06/09/15 Jose Mcguire MD PCP - General Internal Medicine 06/10/15 05/19/19 Vandana Pierce MD PCP - General Family Medicine 05/20/19 08/03/20 Norman Arita MD [address] [place] [address] PCP - General Internal Medicine 08/04/20 03/04/22 documented as of this encounter
--- OUTSIDE RECORDS SUMMARY | 2024-11-13 16:06 | XMS_ITS | Encounter Summary ---
Author Organization [facility] Address [address] [place] [address] Care Team Providers Care Media Liaison Officer Name Role Phone Osiris Sanchez MD Primary Care Provider [phone] Jose Mcguire MD Primary Care Provider Gela Vandana Tovar MD Primary Care Provider [phone] Norman Arita MD Primary Care Provider [phone] Encounter Details Date Type Department Care Team (Late st Contact Info) Description 01/08/2007 Orders Only [facility] [address] [place] [address] Osiris Sanchez MD [address] [place] [address] Social History Tobacco Use Types Packs/Day Years [...] 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 Procedure Name Priority Date/Time Associated Diagnosis Comments CHANI PREP Routine 01/08/2007 YEAST INFECTION OF THE VAGINA CULTURE,VAGINAL Routine 01/08/2007 YEAST INFECTION OF THE VAGINA documented in this encounter Results * Due to [place] law, this organization might not be sharing negative HIV tests. * CULTURE,VAGINAL (01/08/2007) Result(s) SEE TEXT [facility] (CLIA# [id number]) Comment: SOURCE: VAGINA NORMAL DEBI 01/08/2007 01/08/2007 3:4 9 PM EST Osiris Sanchez MD LABORATORY Final Result Performing Organization Address [facility] Co de Phone Number [facility] (CLIA# [id number]) [address] [place] [address] * CHANI PREP (01/08/2007) FUNGUS (CHANI WET PREP) SEE TEXT [facility] (CLIA# [id number]) Comment: SOURCE: UNKNOWN NO FUNGAL ELEMENTS SEEN NO CLUE CELLS PRESENT 01/08/2007 01/08/2007 3:4 9 PM EST Osiris Sanchez MD LABORATORY Final Result Performing Organization Address [facility] de Phone Number [facility] (CLIA# [id number]) [address] [place] [address] documented in this encounter Visit Diagnoses Diagnosis YEAST INFECTION OF THE VAGINA Candidiasis of vulva and vagina documented in this encounter Additional Health Concerns Infection Onset Date Last Indicated Resolved Time COVID-19 Rule-Out 01/13/2020 01/13/2020 01/13/2020 2:43 PM EST COVID-19 Rule-Out 02/22/2020 02/22/2020 02/22/2020 5:30 PM EST COVID-19 Confirmed 02/22/2020 02/22/2020 1 8:12 PM EDT COVID-19 Confirmed 03/09/2021 03/09/2021 2 8:12 PM EDT documented as of this encounter Care Teams Media Liaison Officer Relationship Specialty Start Date End Date Osiris Sanchez MD [address] [place] [address] PCP - General 07/24/06 06/09/15 Jose Mcguire MD PCP - General Internal Medicine 06/10/15 05/19/19 Vandana Pierce MD PCP - General Family Medicine 05/20/19 08/03/20 Norman Arita MD [address] [place] [address] PCP - General Internal Medicine 08/04/20 03/04/22 documented as of this encounter
--- OUTSIDE RECORDS SUMMARY | 2024-11-13 16:06 | XMS_ITS | Encounter Summary ---
Author Organization [facility] Address [address] [place] [address] Care Team Providers Care Commercial Loan Officer Name Role Phone Osiris Sanchez MD Primary Care Provider [phone] Jose Mcguire MD Primary Care Provider Gela Vandana Tovar MD Primary Care Provider [phone] Norman Arita MD Primary Care Provider [phone] Encounter Details Date Type Department Care Team (Late st Contact Info) Description 04/18/2013 Orders Only [facility] Internal Medicine [address] [place] [phone] Osiris Sanchez MD [address] [place] [id number] Social History Tobacco Use Types Packs/Day Years [...] Industry Job Start Date Job End Date [employer] Not on file Not on file Not on file documented as of this encounter Plan of Treatment Not on file documented as of this encounter Procedures * Due to [place] [employer] law, this organization might not be sharing negative HIV tests. Procedure Name Priority Date/Time Associated Diagnosis Comments URINALYSIS, DIP ONLY STAT (All results called to provider) 04/18/2013 3:38 PM EST Vaginitis and vulvovaginitis CULTURE, URINE, ROUTINE Routine 04/18/2013 3:26 PM EST Vaginitis and vulvovaginitis URINALYSIS, MICROSCOPIC Routine 04/18/2013 3:26 PM EST Vaginitis and vulvovaginitis documented in this encounter Results * Due to [place] Care [employer] law, this organization might not be sharing negative HIV tests. * (ABNORMAL) URINALYSIS, DIP ONLY ( SITE STAT ONLY) (04/18/2013 3:38 PM EST) COLOR (URINE) yellow [facility] (CLIA# [id number]) APPEARANCE (URINE) clear [facility] (CLIA# [id number]) SPECIFIC GRAVITY 1.010 1.001 - 1.035 [facility] (CLIA# [id number]) PH (URINE) 7.5 5.0 - 8.0 [facility] (CLIA# [id number]) PROTEIN (URINE) trace(A) Neg [facility] (CLIA# [id number]) GLUCOSE (URINE) negative Neg [facility] (CLIA# [id number]) Ketones (Urine) negative Neg [facility] (CLIA# [id number]) BILIRUBIN (URINE) negative Neg [facility] (CLIA# [id number]) BLOOD (URINE) negative Neg [facility] (CLIA# [id number]) WBC (URINE) trace(A) Neg [facility] (CLIA# [id number]) NITRITE (URINE) negative Neg [facility] (CLIA# [id number]) Urine specimen obtained by clean catch procedure (specimen) 04/18/2013 3:38 PM EST Narrative [facility] (CLIA# [id number]) - 04/18/2013 3:39 PM EST Micro added. Culture already ordered per provider. Osiris Sanchez MD LAB SAME DAY RESULT Final Resul t Performing Organization Address [facility] de Phone Number [facility] (CLIA# [id number]) [address] [place] [address] * URINALYSIS, MICROSCOPIC (04/18/2013 3:26 PM EST) WBC (Urine) NONE SEEN < OR = 5 /HPF [facility] Comment:{WBC {[id number]) RBC (Urine Sed) NONE SEEN < OR = 3 /HPF [facility] Comment:{RBC {[id number]) Epithelial cells.squamous (Urine sed) 0-5 < OR = 5 /HPF [facility] Comment:{SQUAMOUS EPITHELIAL CELLS {[id number]) Bacteria (Urine) NONE SEEN NONE SEEN /HPF [facility] Comment:{BACTERIA {[id number]) Hyaline casts (Urine sed) NONE SEEN NONE SEEN /LPF [facility] Comment:{HYALINE CAST {[id number]) 04/18/2013 3:26 PM EST 04/18/2013 11:37 PM EST Narrative Resulting Agency Comment [id number] Osiris Sanchez MD LAB SAME DAY RESULT Final Resul t Performing Organization Address City/[facility]/ZIP Co de Phone Number [facility] [address] [place] [address] * CULTURE, URINE, ROUTINE (04/18/2013 3:26 PM EST) Bacteria culture (Urine) SEE NOTE [facility] Comment: {CULTURE, URINE, ROUTINE {[id number]) CULTURE, URINE, ROUTINE MICRO NUMBER: [id number] TEST STATUS: FINAL SPECIMEN SOURCE: URINE SPECIMEN QUALITY: ADEQUATE RESULT: No Growth 04/18/2013 3:26 PM EST 04/18/2013 11:37 PM EST Narrative Resulting Agency Comment [id number] Osiris Sanchez MD LABORATORY Final Result [facility] [address] [place] [address] documented in this encounter Visit Diagnoses Diagnosis Vaginitis and vulvovaginitis- Primary Vaginitis and vulvovaginitis, unspecified documented in this encounter Additional Health Concerns Infection Onset Date Last Indicated Resolved Time COVID-19 Rule-Out 01/13/2020 01/13/2020 01/13/2020 2:43 PM EST COVID-19 Rule-Out 02/22/2020 02/22/2020 02/22/2020 5:30 PM EST COVID-19 Confirmed 02/22/2020 02/22/2020 1 8:12 PM EDT COVID-19 Confirmed 03/09/2021 03/09/2021 2 8:12 PM EDT documented as of this encounter Care Teams Commercial Loan Officer Relationship Specialty Start Date End Date Osiris Sanchez MD [address] [place] [id number] PCP - General 07/24/06 06/09/15 Jose Mcguire MD PCP - General Internal Medicine 06/10/15 05/19/19 Vandana Pierce MD PCP - General Family Medicine 05/20/19 08/03/20 Norman Arita MD [address] [place] [address] PCP - General Internal Medicine 08/04/20 03/04/22 documented as of this encounter
--- OUTSIDE RECORDS SUMMARY | 2024-11-13 16:06 | XMS_ITS | Encounter Summary ---
Author Organization [facility] Address [address] [place] [address] Care Team Providers Care Collar Stay Fuser Tender Name Role Phone Jose Mcguire MD Primary Care Provider Vandana Vazquez MD Primary Care Provider [phone] Norman Arita MD Primary Care Provider [phone] Encounter Details Date Type Department Care Team (Late st Contact Info) Description 07/14/2016 Orders Only [facility] Pulmonary [address] [place] [address] Simeon Nolan, TRANSIT MANAGER [address] [place] [address] Social History Tobacco Use Types Packs/Day Years [...] documented as of this encounter Care Teams Collar Stay Fuser Tender Relationship Specialty Start Date End Date Jose Mcguire MD PCP - General Internal Medicine 06/10/15 05/19/19 Vandana Pierce MD PCP - General Family Medicine 05/20/19 08/03/20 Norman Arita MD [address] [place] [address] PCP - General Internal Medicine 08/04/20 03/04/22 documented as of this encounter
--- OUTSIDE RECORDS SUMMARY | 2024-11-13 16:06 | XMS_ITS | Encounter Summary ---
Author Organization [facility] Address [address] [place] [address] Care Team Providers Care Airborne Electronics Analyst Name Role Phone Jose Mcguire MD Primary Care Provider Vandana Vazquez MD Primary Care Provider Norman Arita MD Primary Care Provider Encounter Details Date Type Department Care Team (Late st Contact Info) Description 11/30/2017 Orders Only [facility] LAYOUT MAN [address] [facility] [address] [place] [address] Eron Lopez MD Social History Tobacco Use Types Packs/Day [...] of this encounter Progress Notes * Catalina Trevino LVN LPN - 12/04/2017 12:47 PM EDT Result and provider recommendation to pt via Mychart. * Eron Lopez MD - 12/03/2017 4:26 PM EDT Please inform patient menopausal range FSH/estradiol level, her symptoms are unlikely to be relatedto endometriosis. I will contact her when pelvic MRI result becomes available. Thanks . * Catalina Trevino LVN LPN - 12/03/2017 3:29 PM EDT Results to provider, pt being scheduled for MRI documented in this encounter Plan of Treatment Not on file documented as of this encounter Procedures * Due to [place] [employer] law, this organization might not be sharing negative HIV tests. Procedure Name Priority Date/Time Associated Diagnosis Comments UREA NITROGEN (BUN), SERUM Routine 11/30/2017 7:29 AM EDT Pelvic pain Dyspareunia, female Endometriosis determined by laparoscopy Adnexal tenderness, left FSH Routine 11/30/2017 7:29 AM EDT Pelvic pain Dyspareunia, female Endometriosis determined by laparoscopy Adnexal tenderness, left ESTRADIOL, RAPID Routine 11/30/2017 7:29 AM EDT Pelvic pain Dyspareunia, female Endometriosis determined by laparoscopy Adnexal tenderness, left CREATININE WITH GLOMERULAR FILTRATION RATE, ESTIMATED (EGFR) Routine 11/30/2017 7:29 AM EDT Pelvic pain Dyspareunia, female Endometriosis determined by laparoscopy Adnexal tenderness, left documented in this encounter Results * Due to [place] law, this organization might not be sharing negative HIV tests. * CREATININE WITH GLOMERULAR FILTRATION RATE, ESTIMATED (EGFR) (11/30/2017 7:29 AM EDT) Creatinine 0.82 0.50 - 1.10 mg/dL [facility] GFR 85 > OR = 60 mL/min/1.7 3m2 [facility] GFR () 98 > OR = 60 mL/min/1.7 3m2 [facility] 11/30/2017 7:29 AM EDT 11/30/2017 12:56 PM EDT Narrative [facility] - 11/30/2017 3:45 PM EDT Please note that this estimated [...] needs for GFR calculation. Resulting Agency Comment [id number] us Eron Lopez MD LAB SAME DAY RESULT Final Result Performing Organization Address [facility] Co de Phone Number [facility] [address] [place] [address] * UREA NITROGEN (BUN), SERUM (11/30/2017 7:29 AM EDT) Urea Nitrogen Blood (BUN) 8 7 - 25 mg/dL [facility] 11/30/2017 7:29 AM EDT 11/30/2017 12:56 PM EDT Narrative Resulting Agency Comment [id number] us Eron Lopez MD LAB SAME DAY RESULT Final Result Performing Organization Address [facility] de Phone Number [facility] [address] [place] [address] * ESTRADIOL, RAPID (11/30/2017 7:29 AM EDT) Estradiol 18 pg/mL [facility] Comment: Reference Range Follicular Phase: 19-144 Mid-Cycle: 64-357 Luteal Phase: 56-214 Postmenopausal: < or = 31 Reference range established on post-pubertal patient population. No pre-pubertal reference range established using this assay. For any patients for whom low Estradiol levels are anticipated (e.g. males, pre-pubertal children and hypogonadal/post-menopausal females), the [facility] Estradiol, Ultrasensitive, LCMSMS assay is recommended (order code 37837). Please note: patients being treated with the drug fulvestrant (Faslodex(R)) have demonstrated significant interference in immunoassay methods for estradiol measurement. The cross reactivity could lead to falsely elevated estradiol test results leading to an inappropriate clinical assessment of estrogen status. [facility] order code [id number], Ultrasensitive LC/MS/MS demonstrates negligible cross reactivity with fulvestrant. 11/30/2017 7:29 AM EDT 11/30/2017 12:56 PM EDT Narrative Resulting Agency Comment [id number] us Eron Lopez MD LAB SAME DAY RESULT Final Result Performing Organization Address [facility] Co de Phone Number [facility] [address] [place] [address] * FSH (11/30/2017 7:29 AM EDT) FSH 42.8 mIU/mL [facility] Comment: Reference Range Follicular Phase 2.5-10.2 Mid-cycle Peak 3.1-17.7 Luteal Phase 1.5- 9.1 Postmenopausal 23.0-116.3 11/30/2017 7:29 AM EDT 11/30/2017 12:56 PM EDT Narrative Resulting Agency Comment [id number] us Eron Lopez MD LAB SAME DAY RESULT Final Result Performing Organization Address [facility] Co de Phone Number [facility] [address] [place] [address] documented in this encounter Visit Diagnoses Diagnosis Pelvic pain Reserved for inherently not codable concepts WITHOUT codable children Dyspareunia, female Dyspareunia Endometriosis determined by laparoscopy Adnexal tenderness, left Unspecified symptom associated with female genital organs documented in this encounter Additional Health Concerns Infection Onset Date Last Indicated Resolved Time COVID-19 Rule-Out 01/13/2020 01/13/2020 01/13/2020 2:43 PM EST COVID-19 Rule-Out 02/22/2020 02/22/2020 02/22/2020 5:30 PM EST COVID-19 Confirmed 02/22/2020 02/22/2020 1 8:12 PM EDT COVID-19 Confirmed 03/09/2021 03/09/2021 2 8:12 PM EDT documented as of this encounter Care Teams Airborne Electronics Analyst Relationship Specialty Start Date End Date Jose Mcguire MD PCP - General Internal Medicine 06/10/15 05/19/19 Vandana Pierce MD PCP - General Family Medicine 05/20/19 08/03/20 Norman Arita MD [address] [place] [address] PCP - General Internal Medicine 08/04/20 03/04/22 documented as of this encounter
--- OUTSIDE RECORDS SUMMARY | 2024-11-13 16:06 | XMS_ITS | Clinical Summary ---
Author Organization [email or web address] Address [address] [facility] [address] [place] [address] Care Team Providers Care 2Nd Grade Teacher Name Role Phone Tee Thomas MD Primary Care Prov ider Allergies Active Allergy Reactions Criticality Noted Date Comments Latex Anaphylaxis High 06/04/2024 Medications amitriptyline (Elavil) 10 MG tablet Take 1 tablet (10 mg) by mouth at bedtime. 90 tablet 3 06/04/2024 06/05/19 26 Active atorvastatin (Lipitor) 40 MG tablet Take 1 tablet (40 mg) by mouth Once per day. 90 tablet 3 09/12/2024 09/13/19 26 Active dilTIAZem CD (Cartia XT) 240 MG 24 hr capsule Take 1 capsule (240 mg) by mouth Once per day. 90 capsule 3 09/12/2024 09/13/19 26 Active spironolactone (Aldactone) 25 MG tablet Take 1 tablet (25 mg) by mouth Once per day. 90 tablet 3 09/12/2024 09/13/19 26 Active valACYclovir (Valtrex) 500 MG tablet TAKE 2 TABLETS BY MOUTH TWICE A DAY FOR 7 DAYS 28 tablet 10/22/2024 Active omeprazole OTC (PriLOSEC OTC) 20 MG EC tabletIndicatio ns:Epigastric pain Take 1 tab po BID for 14 days. 28 tablet 11/13/2024 Active valACYclovir (Valtrex) 1 g tablet Take 1 tablet (1,000 mg) by mouth 2 times daily for 7 days. 14 tablet 10/21/2024 10/29/19 25 Active Problems Problem Noted Date Diagnosed Date ALVAREZ (nonalcoholic steatohepatitis) 09/12/2024 Assessment & Plan (09/12/2024 10:23 AM EDT): Used to follow Gi on [place], they were monitoring her with liver u/s every 6 months, will place order, depending on lab and imaging finding will decide if GI follow up appropiate Primary hypertension 06/05/2024 Assessment & Plan (09/12/2024 10:22 AM EDT): Controlled on current therapy, no changes will be made, new labs ordered, keep low sodium diet and exercise as tolerated Assessment & Plan (06/05/2024 8:42 AM EDT): Patient could not recall name of medication, told to keep a low sodium diet, exercise as tolerated, keep bp log, target <140/90, will follow up in 3 months Encounter for screening mamm ogram for malignant neoplasm of breast 06/05/2024 Assessment & Plan (06/05/2024 8:47 AM EDT): Will order a breast mammogram Mixed hyperlipidemia 06/05/2024 Assessment & Plan (09/12/2024 10:21 AM EDT): Patient should be taking atorvastatin 40mg, but she refers is off treatment by her decision over 3 months, will follow up with new labs and decide if she needs to be on statin Anxiety 06/05/2024 Encounter for medical examination to establish c are 06/04/2024 Assessment & Plan (06/04/2024 3:19 PM EDT): Last pcp visit Novemeber 2023 [place] [facility]: - Hospitalization: hysterectomy 2010 Pmhx: htn, cholesterol, anxiety, insomnia, palpitation, fatty liver disease Pshx: hysterectomy/tab 2010, chest lipoma 2021, All:Latex Meds: as aboive Mammogram may 2023 Colonoscopy 2023 Menarche 11 A0 Encounters Date Type Department Care Team Description 11/13/2024 11:20 AM EDT Office Visit [facility] [address] [place] [address] Kory Hammonds MD Epigastric pain (Primary Dx) 11/13/2024 Travel 10/21/2024 Orders Only [facility] [address] [place] [address] Tee Thomas MD 10/20/2024 Refill [facility] [address] [place] [address] Tee Thomas MD 10/13/2024 Telephone [facility] [address] [place] [address] Jesse Melendez, EDWIN 09/15/2024 Results Follow-Up [facility] [address] [place] [address] Tee Thomas MD CBC auto differential, Comprehensive Metabolic Panel, Lipid Panel, Standard, Additional followed-up results: 4 09/12/2024 9:45 AM EDT Office Visit [facility] [address] [place] [address] Tee Thomas MD Primary hypertension (Primary Dx); ALVAREZ (nonalcoholic steatohepatitis); Mixed hyperlipidemia 09/12/2024 Travel 09/05/2024 Travel 09/04/2024 Patient Outreach [facility] [address] [place] [phone] Tee Thomas MD Pre-visit Planning (Pre visit planning LVM ) from Last 3 Months Family History Medical History Relation Name Comments No Known Problems Father Breast cancer Mother Diabetes Mother Hyperlipidemia Mother Breast cancer Mother's Sister Uterine cancer Mother's Sister Relation Name Status Comments Father Mother Mother's Sister Social History Tobacco Use Types Packs/Day Years [...] Orientation Straight 09/15/2024 2: 09 PM EDT Last Filed Vital Signs Vital Sign Reading Time Taken Comments Blood Pressure 131/80 11/13/2024 10:50 AM EDT Pulse 92 11/13/2024 10:50 AM EDT Temperature 36.8 C (98.3 F) 11/13/2024 10:50 AM EDT Respiratory Rate 17 11/13/2024 10:50 AM EDT Oxygen Saturation 98% 07/14/2024 3:43 PM EDT Inhaled Oxygen Concentration - - Weight 57.4 kg (126 lb 9.6 oz) 11/13/2024 10:50 AM EDT Height 154.9 cm (5' 1 ) 11/13/2024 10:50 AM EDT Body Mass Index 23.92 11/13/2024 10:50 AM EDT Plan of Treatment Health Maintenance Due Date Last Done Comments CT Colonography 1970 FIT DNA/Cologuard 1969 FIT 1970 FOBT 1970 Sigmoidoscopy 1970 Hepatitis A Vaccines (1 of 2 - Risk 2-dose series) 1988 Hepatitis B Vaccines (1 of 3 - 19+ 3-dose series) 1988 Pneumococcal Vaccine: 50+ Years (2 of 2 - PCV) 08/29/2016 08/30/2015 Colonoscopy 12/05/2022 12/05/2012 Colorectal Cancer Screening 12/05/2022 COVID-19 Vaccine (3 - season) 2024 05/24/2020, 05/03/2020 Influenza Vaccine (#1) 2024 , 12/09/2020, 11/24/2019, Additional history exists Disability Screening 05/20/2025 05/20/2024 Alcohol/Substance Use Screening 09/12/2025 09/12/2024 Depression Screening 09/12/2025 09/12/2024, 09/13/19 25 SDOH Screening 09/12/2025 09/12/2024 Tobacco Screening 11/13/2025 11/13/2024 Mammogram 08/08/2026 08/08/2024, 04/05, 04/19/2021, Additional history exists DTaP/Tdap/Td Vaccines (2 - Td or Tdap) 09/28/2026 09/28/2016, 08/21/2006, 06/19/2000 Lipid Panel 09/13/2029 09/13/2024 RSV Patients and Patients Aged 60 years or older (1 - 1-dose 75+ series) 2044 Zoster Vaccines Completed 03/08/2020, 11/25/2019 HIV Screening Completed 09/13/2024 Hepatitis C Screening Completed 09/13/2024 HIB Vaccines Aged Out No longer eligi ble based on patient's age to complete this topic HPV Vaccines Aged Out No longer eligi ble based on patient's age to complete this topic IPV Vaccines Aged Out No longer eligi ble based on patient's age to complete this topic Meningococcal B Vaccine Aged Out No l onger eligible based on patient's age to complete this topic Meningococcal Vaccine Aged Out No miguel ángel kyle eligible based on patient's age to complete this topic RSV under 20 months Aged Out No longe r eligible based on patient's age to complete this topic Rotavirus Vaccines Aged Out No longer eligible based on patient's age to complete this topic Procedures Procedure Name Priority Date/Time Associated Diagnosis Comments LIPASE Routine 11/13/2024 11:52 AM EDT Epigastric pain AMYLASE Routine 11/13/2024 11:52 AM EDT Epigastric pain COMPREHENSIVE METABOLIC PANEL Routine 11/13/2024 11:52 AM EDT Epigastric pain CBC WITH AUTO DIFFERENTIAL Routine 11/13/2024 11:52 AM EDT Epigastric pain HEPATITIS C AB W/REFL TO HCV RNA, QN, PCR Routine 09/13/2024 10:15 AM EDT Primary hypertension HIV 1/2 ANTIGEN/ANTIBODY, FOURTH GENERATION W/RFL Routine 09/13/2024 10:15 AM EDT Primary hypertension HEMOGLOBIN A1C Routine 09/13/2024 10:15 AM EDT Primary hypertension TSH W/REFLEX TO FT4 Routine 09/13/2024 1 0:15 AM EDT Primary hypertension LIPID PANEL, STANDARD Routine 09/13/2024 10:15 AM EDT Primary hypertension COMPREHENSIVE METABOLIC PANEL Routine 09/13/2024 10:15 AM EDT Primary hypertension CBC WITH AUTO DIFFERENTIAL Routine 09/13/2024 10:15 AM EDT Primary hypertension BI MAMMOGRAM SCREENING TOMOSYNTHESIS BILATERAL Routine 08/08/2024 3:55 PM EDT Encounter for screening mammogram for malignant neoplasm of breast from Last 3 Months or Most Recently Relevant to Health Maintenance Results * (ABNORMAL) CBC auto differential (11/13/2024 11:52 AM EDT) Only the most recent of2 resultswithin the time period is included. White Blood Count 6.0 4.8 - 10.8 X10*3/uL [facility] Red Blood Count 4.70 4.20 - 5.50 X10*6/uL [facility] Hemoglobin 13.3 12.0 - 16.0 g/dl [facility] Hematocrit 40.3 37.0 - 47.0 % [facility] Mean Corpuscular Volume 85.7 80.0 - 98.0 fL [facility] Mean Corpuscular Hemoglobin 28.3 27.0 - 33.0 pg [facility] Mean Corpuscular HGB Conc 33.0 31.0 - 35.0 g/dl [facility] Red Cell Distribution Width 13.4 11.0 - 16.0 % [facility] Platelet Count 170 160 - 400 X10*3/uL [facility] Mean Platelet Volume 11.5 9.4 - 12.3 fL [facility] Neutrophils Percent Auto 52.8 45 - 73 % [facility] Imm Gran Pct Auto 0.2 0.0 - 0.4 % [facility] Lymphocytes Percent Auto 30.0 20 - 40 % [facility] Monocytes Percent Auto 9.7 2 - 11 % [facility] Eosinophils Percent Auto 7.0(H) 0 - 4 % [facility] Basophils Percent Auto 0.3 0 - 2 % [facility] NRBC Pct Auto 0.0 0.0 - 0.2 /100WBC [facility] Neutrophils Absolute Auto 3.2 2.0 - 8.3 x10*3/uL [facility] Imm Gran Abs Auto 0.01 0.00 - 0.03 X10*3/uL [facility] Lymphocytes Absolute Auto 1.8 1.2 - 4.9 X10*3/uL [facility] Monocytes Absolute Auto 0.6 0.1 - 1.2 X10*3/uL [facility] Eosinophils Absolute Auto 0.4 0.0 - 0.4 X10*3/uL [facility] Basophils Absolute Auto 0.0 0.0 - 0.2 X10*3/uL [facility] NRBC Abs Auto 0.000 0.0 - 0.012 X10*3/uL [facility] Blood Venous blood specimen / Unknown 11/13/2024 11:52 AM EDT 11/13/2024 1:03 PM EDT us Kory Hammonds MD LAB BLOOD ORDERABLES Final Resul t Performing Organization Address City/[facility] Co de Phone Number [facility] [address] [place] [phone] * Lipase (11/13/2024 11:52 AM EDT) Lipase 25 8 - 78 U/L [facility] Blood Venous blood specimen / Unknown 11/13/2024 11:52 AM EDT 11/13/2024 1:03 PM EDT us Kory Hammonds MD LAB BLOOD ORDERABLES Final Resul t Performing Organization Address [facility] Co de Phone Number [facility] [address] [place] [phone] * Amylase (11/13/2024 11:52 AM EDT) Amylase 78 28 - 100 U/L [facility] Blood Venous blood specimen / Unknown 11/13/2024 11:52 AM EDT 11/13/2024 1:03 PM EDT us Kory Hammonds MD LAB BLOOD ORDERABLES Final Resul t Performing Organization Address [facility] de Phone Number [facility] [address] [place] [phone] * (ABNORMAL) Comprehensive Metabolic Panel (11/13/2024 11:52 AM EDT) Only the most recent of2 resultswithin the time period is included. Sodium 140 135 - 145 mmol/L [facility] Potassium 3.9 3.3 - 5.1 mmol/L [facility] Chloride 103 96 - 108 mmol/L [facility] Carbon Dioxide 30(H) 22 - 29 mmol/L [facility] Anion Gap 11(L) 12 - 20 [facility] Urea Nitrogen (BUN) 8(L) 9 - 16 mg/dL [facility] Creatinine, Serum 0.75 0.5 - 1.4 mg/dL [facility] Estimated Glomerular Filt Rate >60 [facility] Comment:Chronic Kidney Disea se: Estimated GFR < 60 mL/min/1.59m6Hxgigp Kidney Disease: Estimated GFR < 15 mL/min/1.73m2 Glucose 85 60 - 115 mg/dL [facility] Calcium 9.7 8.4 - 10.2 mg/dL [facility] Bilirubin, Total 1.0 0.0 - 1.0 mg/dL [facility] Aspartate Amino Transferase 46(H) 5 - 31 U/L [facility] Alanine Aminotransferase 40(H) 0 - 31 U/L [facility] Total Protein 8.1(H) 6.5 - 8.0 g/dL [facility] Albumin Level 4.6 3.5 - 5.0 g/dL [facility] Alkaline Phosphatase 126(H) 39 - 117 U/L [facility] Blood Venous blood specimen / Unknown 11/13/2024 11:52 AM EDT 11/13/2024 1:03 PM EDT us Kory Hammonds MD LAB BLOOD ORDERABLES Final Resul t [facility] [address] [place] [phone] * TSH W/Reflex to FT4 (09/13/2024 10:15 AM EDT) TSH reflex Free T4 1.11 0.32 - 4.0 uIU/mL [facility] Blood Venous blood specimen / Unknown 09/13/2024 10:15 AM EDT 09/13/2024 10:15 AM EDT Tee Chiang MD LAB BLOOD ORDERABL ES Final Result Performing Organization Address [facility] Co de Phone Number [facility] [address] [place] [phone] * Hepatitis C Antibody with Reflex to HCV, RNA, Quantitative, Real-Time PCR (09/13/2024 10:15 AM EDT) Hepatitis C Antibody Nonreactive Nonreactive [facility] Comment:Antibodies to HCV no t detected; does not exclude early acuteHCV infection. Blood Venous blood specimen / Unknown 09/13/2024 10:15 AM EDT 09/13/2024 10:15 AM EDT Tee Chiang MD LAB BLOOD ORDERABL ES Final Result Performing Organization Address [facility] de Phone Number [facility] [address] [place] [phone] * HIV-1/2 Antigen and Antibodies, Fourth Generation, with Reflexes (09/13/2024 10:15 AM EDT) HIV AB/AG Nonreactive Nonreactive [facility] Comment:HIV-1 p24 Ag and/or HIV-1/HIV-2 Ab not detected.A test result that is nonreactive does not exclude thepossibility of exposure to or infection with HIV-1 and/orHIV-2. Nonreactive results in this assay for individualswith prior exposure to HIV-1 and/or HIV-2 may be due toantigen and antibody levels that are below the limit ofdetection of this assay.The [employer] HIV Ag/Ab Combo assay result andsupplemental assay results should be interpreted inconjunction with the patient's clinical presentation,history and other laboratory results. If the results areinconsistent with clinical evidence, additional testing issuggested to confirm the result. Blood Venous blood specimen / Unknown 09/13/2024 10:15 AM EDT 09/13/2024 10:15 AM EDT us Tee Chiang MD LAB BLOOD ORDERABL ES Final Result Performing Organization Address [facility] de Phone Number [facility] [address] [place] [phone] * Hemoglobin A1c (09/13/2024 10:15 AM EDT) Hemoglobin A1c 5.2 <6.0 % [facility] Comment:Hemoglobin A1C Refer ence Range Adults: 4.8 - 6.0 % Non diabetic: < 6.0 % Goal: < 7.0 %Additional Action Suggested: > 8.0 %Note: Hemoglobin A1c results are invalid for patients with abnormal amounts of HbF. Blood transfusions may impact the HbA1c concentration in the patient sample. Estimated Average Glucose 103 mg/dL [facility] Comment:eAG = Estimated ave rage glucose which is %A1C expressed asaverage glucose, using the formula of the X1Z-KghskpePjjkomk Glucose study (ADAG), Diabetes Care, Vol.31,#8,2007 Blood Venous blood specimen / Unknown 09/13/2024 10:15 AM EDT 09/13/2024 10:15 AM EDT us Tee Chiang MD LAB BLOOD ORDERABL ES Final Result Performing Organization Address [facility] Co de Phone Number [facility] [address] [place] [phone] * (ABNORMAL) Lipid Panel, Standard (09/13/2024 10:15 AM EDT) Triglycerides 121 <150 mg/dL [facility] Comment:Desirable Triglyceri de: less than 150 mg/dLBorderline High Triglyceride 150-199 mg/dLHigh Triglyceride: 200-499 mg/dLVery High Triglyceride: greater than or equal to 5OO mg/dL Cholesterol 177 <200 mg/dL [facility] Comment:Desirable Cholestero l: less than 200 mg/dLBorderline High Cholesterol: 200-239 mg/dLHigh Cholesterol: greater than 239 mg/dL LDL Cholesterol Calculated 112(H) <100 mg/dL [facility] Comment:Desirable LDL: less than 100 mg/dLNear Optimal/Above Optimal LDL: 110- 129 mg/dLBorderline High LDL: 130-159 mg/dLHigh LDL: 160-189 mg/dLVery High LDL: greater than or equal to 190 mg/dL HDL Cholesterol 41 >40 mg/dL [facility] Comment:Desirable HDL: great er than 40 mg/dL Note: This HDL assay may give artificially low results in patients with liver disease. Blood Venous blood specimen / Unknown 09/13/2024 10:15 AM EDT 09/13/2024 10:15 AM EDT us Tee Chiang MD LAB BLOOD ORDERABL ES Final Result Performing Organization Address City/State/[facility] Co de Phone Number [facility] [address] [place] [phone] * BI Mammogram Screening Tomosynthesis Bilateral (08/08/2024 3:55 PM EDT) Anatomical Region Laterality Modality Breast Bilateral Mammography 08/08/2024 3:55 PM EDT Narrative 08/22/2024 8:53 AM EDT [address] [place] [address] Mammography Report Signed Patient: Johana Kyle MR#: [id number] 86 : 1970 Acct:[id number] Age/Sex: 54 / F ADM Date: 08/08/24 Loc: HO.MAMMO Attending Dr: Tee Chiang MD Ordering Physician: Tee Thomas MD Res ults: 1Negative Date of Service: 08/08/24 Follow Up: 1 Year From Orig inal Mammogram Procedure(s): MM tomosynthesis screening BI Accession Number(s): [id number] cc: Tee Thomas MD EXAMINATION: MM SCREENING DIGITAL BREAST TOMOSYNTHESIS, BILATERAL CLINICAL INFORMATION: Screening. Asymptomatic. COMPARISON: Mammography: Baseline. TECHNIQUE: Digital breast mammography with tomosynthesis is performed in both the craniocaudal and mediolateral oblique views along with computer-aided detection (CAD). FINDINGS: There are scattered areas of fibroglandular density (ACR BI-RADS breast composition Category b). There are no significant masses, abnormal calcifications, or other abnormalities. MM/MM tomosynthesis screening BI IMPRESSION: No mammographic evidence of malignancy. ASSESSMENT: BI-RADS BI-RADS 1 - Negative RECOMMENDATION: Routine annual mammography screening. 1 year F/U This examination should not preclude the clinical evaluation of a suspicious palpable abnormality. This patient's information was entered into a reminder system with a target due date for their next mammogram. Electronically signed by: Dayanara Rosa DO 08/22/2024 08:50 AM EDT RP Dictated By: Dayanara Rosa DO Signed By: <Electronically signed by Dayanara Rosa DO in OV> 08/22/24 0850 DD/ 1555 TD/TT: 08/08/24 1618 Youth Specialist: Procedure Note Donotuseinterpreter, Image - [facility] [address] [place] [address] Mammography Report Signed Patient: Johana KyleMR#: [id number] 86 : 1970Acct:[id number] Age/Sex: 54 / FADM Date: 08/08/24 Loc: HO.MAMMO Attending Dr: Tee Chiang MD Ordering Physician: Tee Thomas ults: 1Negative Date of Service: 08/08/24Follow Up: 1 Year From Orig inal Mammogram Procedure(s): MM tomosynthesis screening BI Accession Number(s): [id number] cc: Tee Thomas MD EXAMINATION: MM SCREENING DIGITAL BREAST TOMOSYNTHESIS, BILATERAL CLINICAL INFORMATION: Screening. Asymptomatic. COMPARISON: Mammography: Baseline. TECHNIQUE: Digital breast mammography with tomosynthesis is performed in both the craniocaudal and mediolateral oblique views along with computer-aided detection (CAD). FINDINGS: There are scattered areas of fibroglandular density (ACR BI-RADS breast composition Category b). There are no significant masses, abnormal calcifications, or other abnormalities. MM/MM tomosynthesis screening BI IMPRESSION: No mammographic evidence of malignancy. ASSESSMENT: BI-RADS BI-RADS 1 - Negative RECOMMENDATION: Routine annual mammography screening. 1 year F/U This examination should not preclude the clinical evaluation of a suspicious palpable abnormality. This patient's information was entered into a reminder system with a target due date for their next mammogram. Electronically signed by: Dayanara Rosa DO 08/22/2024 08:50 AM EDT Dictated By: Dayanara Rosa DO Signed By: <Electronically signed by Dayanara Rosa DO in OV> 08/22/24 0850 DD/ 1555 TD/TT: 08/08/24 1618 Youth Specialist: Tee Chiang MD IMG BI PROCEDURES Final Result from Last 3 Months or Most Recently Relevant to Health Maintenance Insurance [employer] Care Teams 2Nd Grade Teacher Relationship Specialty Start Date End Date Tee Thomas MD [address] [place] [address] PCP - General Internal Medicine 06/25/24
--- OUTSIDE RECORDS SUMMARY | 2024-11-13 16:06 | XMS_ITS | Encounter Summary ---
Author Organization [facility] Address [address] [place] [address] Care Team Providers Care Crop Roller Name Role Phone Osiris Sanchez MD Primary Care Provider [phone] Jose Mcguire MD Primary Care Provider Gela Vandana Tovar MD Primary Care Provider [phone] Norman Arita MD Primary Care Provider [phone] Reason for Visit * Reason Onset Date Comments Refill Request 06/03/2013 Encounter Details Date Type Department Care Team (Late st Contact Info) Description 06/03/2013 Refill [facility] Medicine [address] [place] [phone] Osiris Sanchez MD [address] [place] [phone] Refill Request Social History Tobacco Use Types [...] 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
--- OUTSIDE RECORDS SUMMARY | 2024-11-13 16:06 | XMS_ITS | Encounter Summary ---
Author Organization [facility] Address [address] [place] [address] Care Team Providers Care Geospatial Scientist Name Role Phone Osiris Sanchez MD Primary Care Provider [phone] Jose Mcguire MD Primary Care Provider Gela Vandana Tovar MD Primary Care Provider [phone] Norman Arita MD Primary Care Provider [phone] Encounter Details Date Type Department Care Team (Late st Contact Info) Description 10/08/2007 Orders Only [facility] [address] [place] [phone] Shalom Sandra MD Social History Tobacco Use Types Packs/Day [...] 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 Procedure Name Priority Date/Time Associated Diagnosis Comments GC DNA PROBE (GEN-PROBE, GC) Routine 10/08/2007 UTI (Urinary Tract Infection) Bacterial Vaginosis CHLAMYDIA DNA PROBE (GEN-PROBE, CHLAMYDIA) Routine 10/08/2007 UTI (Urinary Tract Infection) Bacterial Vaginosis WET PREP/HANGING DROP (ONLY AVAILABLE TO [facility]) Routine 10/08/2007 UTI (Urinary Tract Infection) Bacterial Vaginosis CULTURE,VAGINAL Routine 10/08/2007 UTI (Urinary Tract Infection) Bacterial Vaginosis URINALYSIS,C&S IF INDICATED STAT (All results called to provider) 10/08/2007 UTI (Urinary Tract Infection) documented in this encounter Results * Due to [place] state law, this organization might not be sharing negative HIV tests. * CULTURE,VAGINAL (10/08/2007) Result(s) SEE TEXT Comment: SOURCE: VAGINA NORMAL DEBI 10/08/2007 10/08/2007 12: 55 PM EDT Shalom Sandra MD LABORATORY Final Res ult * WET PREP/HANGING DROP (ONLY AVAILABLE TO [facility]) (10/08/2007) WET PREP SEE TEXT Comment: SOURCE: VAG NO FUNGAL ELEMENTS SEEN NO TRICHOMONAS VAGINALIS SEEN FEW CLUE CELLS SEEN 10/08/2007 10/08/2007 12: 55 PM EDT us Shalom Sandra MD LAB SAME DAY RESULT Final Result * GC DNA PROBE (GEN-PROBE, GC) (10/08/2007) GC DNA PROBE SEE TEXT Comment: SOURCE: ENDOCERVIX NEGATIVE 10/08/2007 10/08/2007 12: 55 PM EDT us Shalom Sandra MD LABORATORY Final Res ult * CHLAMYDIA DNA PROBE (GEN-PROBE, CHLAMYDIA) (10/08/2007) CHLAMYDIA TRACHOMATIS DNA SEE TEXT Comment: SOURCE: ENDOCERVIX NEGATIVE 10/08/2007 10/08/2007 12: 55 PM EDT Shalom Sandra MD LABORATORY Final Res ult * (ABNORMAL) URINALYSIS,C&S IF INDICATED (10/08/2007) COLOR (URINE) YELLOW YELLOW APPEARANCE (URINE) CLOUDY(A) CLEAR SPECIFIC GRAVITY 1.010 1.001 - 1.035 PH (URINE) 6.5 5.0 - 8.0 PROTEIN (URINE) NEG NEG GLUCOSE (URINE) NEG NEG Ketones (Urine) NEG NEG BILIRUBIN (URINE) NEG NEG BLOOD (URINE) NEG NEG WBC (URINE) NEG NEG NITRITE (URINE) NEG NEG WBC (URINE) 0-4 0-4/HPF RBC (Urine Sed) 4-5(A) 0-3/HPF EPITHELIAL CELLS.SQUAMOUS (URINE SED) 10-20(A) 0-5/HPF EPITHELIAL CELLS.TRANSITIO NAL (URINE SED) 0 0-5/HPF EPITHELIAL CELLS.RENAL (URINE SED) 0 0-3/HPF BACTERIA (URINE) MODERATE(A ) NONE SEEN 10/08/2007 10/08/2007 12: 07 PM EDT Shalom Sandra MD LABORATORY Final Res ult documented in this encounter Visit Diagnoses Diagnosis UTI (urinary tract infection) Urinary tract infection, site not specified Bacterial vaginosis Vaginitis and vulvovaginitis, unspecified documented in this encounter Additional Health Concerns Infection Onset Date Last Indicated Resolved Time COVID-19 Rule-Out 01/13/2020 01/13/2020 01/13/2020 2:43 PM EST COVID-19 Rule-Out 02/22/2020 02/22/2020 02/22/2020 5:30 PM EST COVID-19 Confirmed 02/22/2020 02/22/2020 8:12 PM EDT COVID-19 Confirmed 03/09/2021 03/09/2021 2 8:12 PM EDT documented as of this encounter Care Teams Geospatial Scientist Relationship Specialty Start Date End Date Osiris Sanchez MD [address] [place] [address] PCP - General 07/24/06 06/09/15 Jose Mcguire MD PCP - General Internal Medicine 06/10/15 05/19/19 Vandana Pierce MD PCP - General Family Medicine 05/20/19 08/03/20 Norman Arita MD [address] [place] [address] PCP - General Internal Medicine 08/04/20 03/04/22 documented as of this encounter
--- OUTSIDE RECORDS SUMMARY | 2024-11-13 16:06 | XMS_ITS | Encounter Summary ---
Author Organization [facility] Address [address] [place] [address] Care Team Providers Care Auto Tester Name Role Phone Jose Mcguire MD Primary Care Provider Vandana Vaqzuez MD Primary Care Provider [phone] Norman Arita MD Primary Care Provider [phone] Encounter Details Date Type Department Care Team (Late st Contact Info) Description 12/19/2017 Orders Only [facility] [address] [place] [phone] Jose Mcguire MD Social History Tobacco Use [...] this encounter Procedures * Due to [place] state law, this organization might not be sharing negative HIV tests. Procedure Name Priority Date/Time Associated Diagnosis Comments STREPTOCOCCUS, GROUP A CULTURE Routine 12/19/2017 11:50 AM EDT Sore throat documented in this encounter Results * Due to [place] state law, this organization might not be sharing negative HIV tests. * STREPTOCOCCUS, GROUP A CULTURE (12/19/2017 11:50 AM EDT) Culture, Streptococci Group A, Throat SEE NOTE [facility] Comment: STREPTOCOCCUS, GROUP A CULTURE MICRO NUMBER: [id number] TEST STATUS: FINAL SPECIMEN SOURCE: NOT GIVEN SPECIMEN QUALITY: ADEQUATE RESULT: No group A Streptococcus isolated 12/19/2017 11:5 0 AM EDT 12/19/2017 3:42 PM EDT Narrative Resulting Agency Comment [id number] Jose Mcguire MD LABORATORY Final Result Performing Organization Address City/State/[facility] Co de Phone Number [facility] [address] [place] [address] documented in this encounter Visit Diagnoses Diagnosis [...] documented as of this encounter Care Teams Auto Tester Relationship Specialty Start Date End Date Jose Mcguire MD PCP - General Internal Medicine 06/10/15 05/19/19 Vandana Pierce MD PCP - General Family Medicine 05/20/19 08/03/20 Norman Arita MD [address] [place] [address] PCP - General Internal Medicine 08/04/20 03/04/22 documented as of this encounter
--- OUTSIDE RECORDS SUMMARY | 2024-11-13 16:07 | XMS_ITS | Clinical Summary ---
Author Organization [facility] Address [address] [place] [address] Care Team Providers Care Depot Agent Name Role Phone Norman Arita MD Primary Care Provider [phone] Allergies Active Allergy Reactions Criticality Noted Date [...] antibody) 12/13/2021 Arthralgia of both hands 12/13/2021 Family History Medical History Relation Name Comments Cancer Father's Sister Lupus Father's Sister Relation Name Status Comments Father's Sister Social History Tobacco Use Types Packs/Day [...] 12/13/2021 11:57 AM EDT Plan of Treatment Health Maintenance Due Date Last Done Comments Cologuard 1969 Colon Cancer Screening 1969 Colonoscopy 1969 FOBT / Fit Test 1969 HIV Screening 1969 Hepatitis C Screening 1969 Sigmoidoscopy 1969 Hepatitis B Vaccines (1 of 3 - 19+ 3-dose series) 1988 Mammogram 2009 Pneumococcal Vaccine: 50+ Ye ars (2 of 2 - PCV) 08/29/2016 08/30/2015 Alcohol/Substance Use Screening 03/05/2024 Depression Screening and Follow-Up 03/05/2024 Social Drivers of Health Aaliyah ual Screening 03/05/2024 COVID-19 Vaccine (3 - 2024-2 6 season) 2024 05/24/2020, 05/03/2020 Influenza Vaccine (#1) 2024 , 11/24/2019, 11/15/2018, Additional history exists DTaP,Tdap,and Td Vaccines (2 - Td or Tdap) 09/28/2026 09/28/2016, 08/21/2006, 06/19/2000 RSV Vaccine (60+ years old a nd patients) (1 - 1-dose 75+ series) 2044 Zoster Vaccines Completed 03/08/2020, 11/25/2019 Insurance HMO/POS Care Teams Depot Agent Relationship Specialty Start Date End Date Norman Arita MD PCP - General Family Medicine 01/12/21
--- OUTSIDE RECORDS SUMMARY | 2024-11-13 16:07 | XMS_ITS | Encounter Summary ---
Author Organization [facility] Address [address] [place] [address] Care Team Providers Care Ferryboat Pilot Name Role Phone Osiris Sanchez MD Primary Care Provider [phone] Jose Mcguire MD Primary Care Provider Gela Vandana Tovar MD Primary Care Provider [phone] Norman Arita MD Primary Care Provider [phone] Encounter Details Date Type Department Care Team (Late st Contact Info) Description 08/24/2008 Orders Only [facility] [address] [place] [phone] Osiris Sanchez MD [address] [place] [phone] Social History Tobacco Use Types Packs/Day Years [...] 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 Procedure Name Priority Date/Time Associated Diagnosis Comments BASIC METABOLIC PANEL W/GLOMERULAR FILTRATION RATE (EGFR) Routine 08/24/2008 Routine General Medical Examination at a Health Care Facility LIPID PANEL + CARDIAC RISK WITH REFLEX TO LDL DIRECT Routine 08/24/2008 Screening for Hyperlipidemia CBC 5 PART DIFF Routine 08/24/2008 Routine General Medical Examination at a Health Care Facility documented in this encounter Results * Due to [place] [employer] law, this organization might not be sharing negative HIV tests. * LIPID PANEL + CARDIAC RISK WITH REFLEX TO LDL DIRECT (08/24/2008) CHOLESTEROL, TOTAL 186 125 - 200 MG/DL [facility] TRIGLYCERIDES 118 30 - 149 MG/DL [facility] HDL-CHOLESTEROL 42 40 - 77 MG/DL [facility] LDL-CHOLESTEROL 120 62 - 130 MG/DL [facility] Comment: RISK CATEGORY: LDL-CHOLESTEROL GOAL CHD AND CHD RISK EQUIVALENTS: <100 MULTIPLE (2+) FACTORS: <130 ZERO TO ONE RISK FACTOR: <160 CHD RELATIVE RISK RATIO (TOTAL/HDL) 4.43 0.0 - 5.0 [facility] Comment:(1.0 X AVERAGE) 08/24/2008 08/24/2008 8:3 7 PM EDT Osiris Sanchez MD LABORATORY Final Result Performing Organization Address City/State/[facility] de Phone Number [facility] [address] [place] [address] * CBC 5 PART DIFF (08/24/2008) WHITE BLOOD COUNT 5.1 3.8 - 10.8 THOUS/UL [facility] RBC 4.40 3.80 - 5.10 MIL/UL [facility] Hemoglobin 12.6 11.7 - 15.5 G/DL [facility] HCT (HEMATOCRIT) 37.5 35.0 - 45.0 % [facility] MCV 85.2 80.0 - 100.0 FL [facility] MCH 28.7 27.0 - 33.0 PG [facility] MCHC 33.7 32.0 - 36.0 G/DL [facility] BAND % 0 0 - 5 % [facility] NEUTROPHIL % 60 48 - 75 % [facility] LYMPHOCYTE % 33 17 - 40 % [facility] MONOCYTE % 6 0 - 14 % [facility] EOSINOPHIL % 1 0 - 5 % [facility] BASOPHIL % 0 0 - 3 % [facility] ATYPICAL LYMPHOCYTE % 0 0 - 5 % [facility] PLATELETS 171 140 - 400 THOUS/UL [facility] BANDS # 0 0 - 750 CELLS/MCL [facility] NEUTROPHILS # 3060 1500 - 7800 CELLS/MCL [facility] LYMPHOCYTES # 1683 850 - 3900 CELLS/MCL [facility] MONOCYTES # 306 200 - 950 CELLS/MCL [facility] EOSINOPHILS # 51 15 - 550 CELLS/MCL [facility] BASOPHILS # 0 0 - 200 CELLS/MCL [facility] ATYPICAL LYMPHOCYTES # 0 0 - 200 CELLS/MCL [facility] RDW 13.1 11.0 - 15.0 % [facility] MPV 9.8 7.5 - 11.5 FL [facility] 08/24/2008 08/24/2008 8:3 7 PM EDT us Osiris Sanchez MD LAB SAME DAY RESULT Final Resul t [facility] [address] [place] [address] * BASIC METABOLIC PANEL W/GLOMERULAR FILTRATION RATE (EGFR) (08/24/2008) CALCIUM 9.2 8.6 - 10.2 MG/DL [facility] BUN 12 7 - 25 MG/DL [facility] CREATININE 0.71 0.59 - 1.07 MG/DL [facility] Glucose 73 65 - 99 MG/DL [facility] SODIUM 140 135 - 146 MMOL/L [facility] POTASSIUM 3.8 3.5 - 5.3 MMOL/L [facility] CHLORIDE 104 98 - 110 MMOL/L [facility] CARBON DIOXIDE 27 21 - 33 MMOL/L [facility] GFR > 60 60 AND ABOVE [facility] Comment:UNITS: ML/MIN/1.73 S Q METERS EGFR > 60 60 AND ABOVE [facility] Comment:UNITS: ML/MIN/1.73 S Q METERS 08/24/2008 08/24/2008 8:3 7 PM EDT Narrative [facility] - 08/25/2008 10:19 AM EDT Please note that this estimated GFR [...] with more precise needs for GFR calculation. Osiris Sanchez MD LABORATORY Final Result [facility] [address] [place] [address] documented in this encounter Visit Diagnoses Diagnosis Routine general medical examination at a health care facility Screening for hyperlipidemia Screening for lipoid disorders documented in this encounter Additional Health Concerns Infection Onset Date Last Indicated Resolved Time COVID-19 Rule-Out 01/13/2020 01/13/2020 01/13/2020 2:43 PM EST COVID-19 Rule-Out 02/22/2020 02/22/2020 02/22/2020 5:30 PM EST COVID-19 Confirmed 02/22/2020 02/22/2020 1 8:12 PM EDT COVID-19 Confirmed 03/09/2021 03/09/2021 2 8:12 PM EDT documented as of this encounter Care Teams Ferryboat Pilot Relationship Specialty Start Date End Date Osiris Sanchez MD [address] [place] [id number] PCP - General 07/24/06 06/09/15 Jose Mcguire MD PCP - General Internal Medicine 06/10/15 05/19/19 Vandana Pierce MD PCP - General Family Medicine 05/20/19 08/03/20 Norman Arita MD [address] [place] [address] PCP - General Internal Medicine 08/04/20 03/04/22 documented as of this encounter
--- OUTSIDE RECORDS SUMMARY | 2024-11-13 16:07 | XMS_ITS | Encounter Summary ---
Author Organization [facility] Address [address] [place] [address] Care Team Providers Care Cotton Inspector Name Role Phone Jose Mcguire MD Primary Care Provider Vandana Vazquez MD Primary Care Provider [phone] Norman Arita MD Primary Care Provider Reason for Referral * OUTPT PROCEDURES AND DIAGNOSTICS (Routine) - ZZ Not Required Specialty Diagnoses / Procedures Referred By Adiel tijerina Referred To Contact CT Scan Diagnoses Other nonspecific abnormal finding of lung field 06/06/17 DX IN [place] Procedures CT CHEST W/O CONTRAST (DX: F/U ABNL CHEST CT R91.8/ 793.2) (1 YR FROM LAST) Tommy Saldaña MD [address] [place] [address] Phone: tel: fax: Referral ID Status Reason Start Date Expiration Date Visits Requested Visits Authorized [id number] ZZ Not Required Continuity of Care 06/06/2017 1 1 Encounter Details Date Type Department Care Team ([facility] st Contact Info) Description 06/27/2016 Orders Only [facility] [address] [place] [phone] Tommy Saldaña MD [address] [place] [phone] Social History Tobacco Use Types Packs/Day Years [...] of this encounter Results * Due to [place] state law, this organization might not be sharing negative HIV tests. * (ABNORMAL) CT CHEST W/O CONTRAST (DX: F/U ABNL CHEST CT R91.8/ 793.2) (1 YR FROM LAST) FC (06/25/2017 7:20 AM EDT) FLEISCHNER 99(A) [facility] RADIOLOGY SYSTEM Anatomical Region Laterality Modality CHEST Computed Tomogra phy 06/25/2017 1:41 PM EDT Narrative 06/25/2017 1:41 PM EDT Exam: Nonenhanced CT chest with multiplanar reformats. Comparison: 06/25/2016 and 01/15/2015 Findings: Lungs reveal stable appearing 4 mm sub-solid appearing right lower lobe nodule (3:69). No new or enlarging pulmonary nodules. No focal consolidation or pleural effusions. Left apical scarring or tiny subpleural cysts unchanged. No new mediastinal or hilar masses or adenopathy. Thoracic aorta is stable caliber. Images below the diaphragms reveal no new abnormalities area no focal osseous lesions. Impression: Stable 4 mm right lower lobe nodule, with greater than two-year stability documented. No further imaging surveillance is warranted, based on stability and size criteria. Plan: No further imaging surveillance of pulmonary nodule is warranted based on stability in size criteria. Further imaging should be based on clinical findings. Fleischner 2017 Guidelines were utilized to develop follow up recommendations for this patient. The full article can be viewed at: https://goo.gl/emmULK Follow up strategies in solid nodules vary depending on patient risk assessment, with patient's classified as high or low risk. Low risk is associated with young age, smaller nodule size, regular margins, and location in an area other than the upper lobe. High risk factors include older age, heavy smoking, emphysema, carcinogen exposure, larger nodule size, irregular or spiculated margins, and upper lobe location. Nodule size and morphology are the dominant factors. Follow up of subsolid nodules (including ground glass and part solid opacities) is different when compared to solid nodules based on risk of malignancy and a longer doubling time in this group. Therefore when follow up is recommended, it is for a longer interval. Also in this group, recommendations may vary depending on a solitary lesion versus multiplicity of lesions. A calculator of estimated risk is available at: https://goo.gl/JEEJEh ##PFU## Procedure Note Travis Olivares MD - 06/25/2017 Exam: Nonenhanced CT chest with multiplanar reformats. Comparison: 06/25/2016 and 01/15/2015 Findings: Lungs reveal stable appearing 4 mm sub-solid appearing rightlower lobe nodule (3:69). No new or enlarging pulmonary nodules. No focal consolidation or pleural effusions. Left apical scarring or tinysubpleural cysts unchanged. No new mediastinal or hilar masses or adenopathy. Thoracic aorta isstable caliber. Images below the diaphragms reveal no new abnormalities area nofocal osseous lesions. Impression: Stable 4 mm right lower lobe nodule, with greater thantwo-year stability documented. No further imaging surveillance is warranted, basedon stability and size criteria. Plan: No further imaging surveillance of pulmonary nodule is warrantedbased on stability in size criteria. Further imaging should be based on clinical findings. Elijahner 2017 Guidelines were utilized to develop follow uprecommendations for this patient. The full article can be viewed at: https://goo.gl/emmKASIEK Follow up strategies in solid nodules vary depending on patient risk assessment, with patient's classified as high or low risk. Low risk is associated with young age, smaller nodule size, regularmargins, and location in an area other than the upper lobe. High risk factors include older age, heavy smoking, emphysema, carcinogen exposure, larger nodule size, irregular or spiculated margins, and upperlobe location. Nodule size and morphology are the dominant factors. Follow up of subsolid nodules (including ground glass and part solidopacities) is different when compared to solid nodules based on risk of malignancyand a longer doubling time in this group. Therefore when follow up isrecommended, it is for a longer interval. Also in this group, recommendations may vary depending on a solitarylesion versus multiplicity of lesions. A calculator of estimated risk is available at: https://goo.gl/JEEJEh ##PFU## Tommy Saldaña MD IMG CT NO CONTRAST ORDERABLES Final Result documented in this encounter Visit Diagnoses Diagnosis Abnormal CT scan, chest Nonspecific (abnormal) findings on radiological and other examination of other intrathoracic organs documented in this encounter Additional Health Concerns Infection Onset Date Last Indicated Resolved Time COVID-19 Rule-Out 01/13/2020 01/13/2020 01/13/2020 2:43 PM EST COVID-19 Rule-Out 02/22/2020 02/22/2020 02/22/2020 5:30 PM EST COVID-19 Confirmed 02/22/2020 02/22/2020 1 8:12 PM EDT COVID-19 Confirmed 03/09/2021 03/09/2021 2 8:12 PM EDT documented as of this encounter Care Teams Cotton Inspector Relationship Specialty Start Date End Date Jose Mcguire MD PCP - General Internal Medicine 06/10/15 05/19/19 Vandana Pierce MD PCP - General Family Medicine 05/20/19 08/03/20 Norman Arita MD [address] [place] [address] PCP - General Internal Medicine 08/04/20 03/04/22 documented as of this encounter
--- OUTSIDE RECORDS SUMMARY | 2024-11-13 16:07 | XMS_ITS | Encounter Summary ---
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 Patient supposed to be taking atorvastatin 20 mg, I do not see it in the medication list. I will increase the dose to atorvastatin 40 mg, will repeat the testing fasting in 3 months documented in this encounter Plan of Treatment [...] of this encounter Procedures * Due to [place] [employer] law, this organization might not be sharing negative HIV tests. Procedure Name Priority Date/Time Associated Diagnosis Comments VENIPUNCTURE Routine 04/19/2021 7:35 AM EST Mixed hyperlipidemia documented in this encounter Results * Due to [place] [employer] law, this organization might not be sharing negative HIV tests. * (ABNORMAL) LIPID PANEL WITH REFLEX TO DIRECT LDL (04/19/2021 7:35 AM EST) Cholesterol 256(H) <200 mg/dL [facility] HDL Cholesterol 38(L) > OR = 50 mg/dL [facility] Triglyceride 320(H) <150 mg/dL [facility] Comment: If a non-fasting specimen was collected, consider repeat triglyceride testing on a fasting specimen if clinically indicated. Marie et al. J. of Clin. Lipidol. 2015;9:129-169. LDL Cholesterol 169(H) mg/dL (calc) [facility] Comment: Reference range: <100 Desirable range <100 mg/dL for primary prevention; <70 mg/dL for patients with CHD or diabetic patients with > or = 2 CHD risk factors. LDL-C is now calculated using the Junior-Grimes calculation, which is a validated novel method providing better accuracy than the Friedewald equation in the estimation of LDL-C. Junior SS et al. RASHI. 2013;310(19): 1161-6081 (http://education.[employer]/faq/AAY967) CHOL/HDL Ratio 6.7(H) <5.0 (calc) [facility] Cholesterol Non-HDL 218(H) <130 mg/dL (calc) [facility] Comment: For patients with diabetes plus 1 major ASCVD risk factor, treating to a non-HDL-C goal of <100 mg/dL (LDL-C of <70 mg/dL) is considered a therapeutic option. 04/19/2021 7:35 AM EST 04/19/2021 9:33 AM EST Narrative Resulting Agency Comment [id number] Norman Arita MD LABORATORY Final Result Performing Organization Address City/State/[facility] Co de Phone Number [facility] [address] [place] [address] documented in this encounter Visit Diagnoses Diagnosis Mixed hyperlipidemia documented in this encounter Additional Health Concerns Infection Onset Date Last Indicated Resolved Time COVID-19 Confirmed 03/09/2021 03/09/2021 8:12 PM EDT documented as of this encounter Care Teams Program Analyst Relationship Specialty Start Date End Date Norman Arita MD [address] [place] [address] PCP - General Internal Medicine 08/04/20 03/04/22 documented as of this encounter
--- OUTSIDE RECORDS SUMMARY | 2024-11-13 16:07 | XMS_ITS | Encounter Summary ---
Author Organization [facility] Address [address] [place] [address] Care Team Providers Care Information Assoc Name Role Phone Jose Mcguire MD Primary Care Provider Gela Vandana Tovar MD Primary Care Provider [phone] Norman Arita MD Primary Care Provider [phone] Encounter Details Date Type Department Care Team (Late Contact Info) Description 01/31/2017 Orders Only July Internal Medicine [address] [place] [address] Jose Mcguire MD Social History Tobacco Use [...] this encounter Procedures * Due to [place] state law, this organization might not be sharing negative HIV tests. Procedure Name Priority Date/Time Associated Diagnosis Comments HEMOGLOBIN A1C Routine 01/31/2017 7:09 AM EST Hyperlipidemia, unspecified hyperlipidemia type ALBUMIN (MICROALBUMIN), RANDOM URINE, WITH CREATININE Routine 01/31/2017 7:09 AM EST Hyperlipidemia, unspecified hyperlipidemia type LIPID PANEL WITH REFLEX TO DIRECT LDL Routine 01/31/2017 7:09 AM EST Hyperlipidemia, unspecified hyperlipidemia type BASIC METABOLIC PANEL WITH (GFR) Routine 01/31/2017 7:09 AM EST Hyperlipidemia, unspecified hyperlipidemia type Benign essential HTN documented in this encounter Results * Due to [place] state law, this organization might not be sharing negative HIV tests. * (ABNORMAL) BASIC METABOLIC PANEL WITH (GFR) (01/31/2017 7:09 AM EST) Glucose 104(H) 65 - 99 mg/dL [facility] Comment: Fasting reference interval For someone without known diabetes, a glucose value between 100 and 125 mg/dL is consistent with prediabetes and should be confirmed with a follow-up test. Urea Nitrogen Blood (BUN) 10 7 - 25 mg/dL [facility] Creatinine 0.69 0.50 - 1.10 mg/dL [facility] GFR 104 > OR = 60 mL/min/1. 73m2 [facility] GFR () 120 > OR = 60 mL/min/1. 73m2 [facility] BUN/Creatinine Ratio NOT APPLICABLE 6 - 22 (calc) [facility] Sodium 141 135 - 146 mmol/L [facility] Potassium 4.2 3.5 - 5.3 mmol/L [facility] Chloride 105 98 - 110 mmol/L [facility] Carbon dioxide 28 20 - 31 mmol/L [facility] Calcium 9.5 8.6 - 10.2 mg/dL [facility] 01/31/2017 7:09 AM EST 01/31/2017 12:23 PM EST Narrative [facility] - 01/31/2017 6:26 PM EST Please note that this estimated GFR does [...] needs for GFR calculation. Resulting Agency Comment [id number] Jose Mcguire MD LABORATORY Final Result Performing Organization Address [facility] de Phone Number [facility] [address] [place] [address] * ALBUMIN (MICROALBUMIN), RANDOM URINE, WITH CREATININE (01/31/2017 7:09 AM EST) Creatinine (Urine) 219 20 - 320 mg/dL [facility] Albumin (Urine) 0.6 mg/dL [facility] Comment: Reference Range Not established Albumin/Creatinine (Urine) 3 <30 mcg/mg creat [facility] Comment: The ADA defines abnormalities in albumin excretion as follows: Category Result (mcg/mg creatinine) Normal <30 Microalbuminuria 30-299 Clinical albuminuria > OR = 300 The ADA recommends that at least two of three specimens collected within a 3-6 month period be abnormal before considering a patient to be within a diagnostic category. 01/31/2017 7:09 AM EST 01/31/2017 12:23 PM EST Narrative Resulting Agency Comment [id number] Jose Mcguire MD LABORATORY Final Result Performing Organization Address [facility] de Phone Number [facility] [address] [place] [address] * (ABNORMAL) LIPID PANEL WITH REFLEX TO DIRECT LDL (01/31/2017 7:09 AM EST) Cholesterol 159 <200 mg/dL [facility] HDL Cholesterol 31(L) >50 mg/dL [facility] Triglyceride 214(H) <150 mg/dL [facility] LDL Cholesterol 97 mg/dL (calc) [facility] Comment: Reference range: <100 Desirable range <100 mg/dL for patients with CHD or diabetes and <70 mg/dL for diabetic patients with known heart disease. LDL-C is now calculated using the Junior-Sydney calculation, which is a validated novel method providing better accuracy than the Friedewald equation in the estimation of LDL-C. Junior BASILIO et al. RASHI. 2013;310(19): 5795-2988 (http://education.Thelial Technologies.KeraFAST/faq/DWK650) CHOL/HDL Ratio 5.1(H) <5.0 (calc) [facility] Cholesterol Non-HDL 128 <130 mg/dL (calc) [facility] Comment: For patients with diabetes plus 1 major ASCVD risk factor, treating to a non-HDL-C goal of <100 mg/dL (LDL-C of <70 mg/dL) is considered a therapeutic option. 01/31/2017 7:09 AM EST 01/31/2017 12:23 PM EST Narrative Resulting Agency Comment [id number] Jose Mcguire MD LABORATORY Final Result Performing Organization Address [facility] de Phone Number [facility] [address] [place] [address] * HEMOGLOBIN A1C (01/31/2017 7:09 AM EST) Hemoglobin A1C 5.6 <5.7 % of total [...] diagnosis of diabetes in children. According to [place] Diabetes Association (ADA) guidelines, hemoglobin A1c <7.0% represents optimal control in non- diabetic patients. Different metrics may apply to specific patient populations. Standards of Medical Care in Diabetes(ADA). Estimated Average Glucose 122 mg/dL (calc) [facility] 01/31/2017 7:09 AM EST 01/31/2017 12:23 PM EST Narrative Resulting Agency Comment [id number] Jose Mcguire MD LABORATORY Final Result Performing Organization Address [facility] de Phone Number [facility] [address] [place] [address] documented in this encounter Visit Diagnoses Diagnosis Hyperlipidemia, unspecified hyperlipidemia type Benign essential HTN Essential hypertension, benign documented in this encounter Additional Health Concerns Infection Onset Date Last Indicated Resolved Time COVID-19 Rule-Out 01/13/2020 01/13/2020 01/13/2020 2:43 PM EST COVID-19 Rule-Out 02/22/2020 02/22/2020 02/22/2020 5:30 PM EST COVID-19 Confirmed 02/22/2020 02/22/2020 1 8:12 PM EDT COVID-19 Confirmed 03/09/2021 03/09/2021 2 8:12 PM EDT documented as of this encounter Care Teams Information Assoc Relationship Specialty Start Date End Date Jose Mcguire MD PCP - General Internal Medicine 06/10/15 05/19/19 Vandana Pierce MD PCP - General Family Medicine 05/20/19 08/03/20 Norman Arita MD [address] [place] [address] PCP - General Internal Medicine 08/04/20 03/04/22 documented as of this encounter
--- OUTSIDE RECORDS SUMMARY | 2024-11-13 16:07 | XMS_ITS | Encounter Summary ---
Author Organization [facility] Address [address] [place] [address] Care Team Providers Care Software Verification Engineer Name Role Phone Osiris Sanchez MD Primary Care Provider [phone] Jose Mcguire MD Primary Care Provider Gela Vandana Tovar MD Primary Care Provider [phone] Norman Arita MD Primary Care Provider [phone] Encounter Details Date Type Department Care Team (Late st Contact Info) Description 10/14/2008 Orders Only [facility] Internal Medicine [address] [place] [address] Osiris Sanchez MD [address] [place] [address] Social History Tobacco Use Types Packs/Day Years [...] 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 Procedure Name Priority Date/Time Associated Diagnosis Comments URINALYSIS, DIP ONLY ( SITE STAT ONLY) STAT (All results called to provider) 10/14/2008 11:05 AM EDT UTI (Urinary Tract Infection) CULTURE, URINE Routine 10/14/2008 UTI (Urinary Tract Infection) documented in this encounter Results * Due to [facility] law, this organization might not be sharing negative HIV tests. * (ABNORMAL) URINALYSIS, DIP ONLY ( SITE STAT ONLY) (10/14/2008 11:05 AM EDT) COLOR (URINE) yellow [facility] (CLIA# [id number]) APPEARANCE (URINE) cloudy(A) [facility] (CLIA# [id number]) SPECIFIC GRAVITY 1.005 1.001 - 1.035 [facility] (CLIA# [id number]) PH (URINE) 7.0 5.0 - 8.0 [facility] (CLIA# [id number]) PROTEIN (URINE) neg - Neg - Neg [facility] (CLIA# [id number]) GLUCOSE (URINE) neg - Neg - Neg [facility] (CLIA# [id number]) Ketones (Urine) neg - Neg - Neg [facility] (CLIA# [id number]) BILIRUBIN (URINE) neg - Neg - Neg [facility] (CLIA# [id number]) BLOOD (URINE) trace(A) Neg - Neg [facility] (CLIA# [id number]) WBC (URINE) 1+(A) Neg - Neg [facility] (CLIA# [id number]) NITRITE (URINE) neg - Neg - Neg [facility] (CLIA# [id number]) Urine specimen (specimen) 10/14/2008 11:05 AM EDT Narrative [facility] (CLIA# [id number]) - 10/14/2008 11:05 AM EDT Micro and culture already ordered per provider. us Osiris Sanchez MD LAB SAME DAY RESULT Final Resul t [facility] (CLIA# [id number]) [address] [place] [address] * CULTURE, URINE (10/14/2008) URINE CULTURE CLEAN VOID SEE TEXT [facility] Comment: SOURCE: URINE MULTIPLE ORGANISMS, EACH <10,000 CFU/ML. MAY REPRESENT NORMAL DEBI CONTAMINATION FROM EXTERNAL GENITALIA. NO FURTHER TESTING. 10/14/2008 10/14/2008 4:2 9 PM EDT Osiris Sanchez MD LABORATORY Final Result Performing Organization Address City/[facility] Co de Phone Number [facility] [address] [place] [address] documented in this encounter Visit Diagnoses Diagnosis UTI (urinary tract infection) Urinary tract infection, site not specified documented in this encounter Additional Health Concerns Infection Onset Date Last Indicated Resolved Time COVID-19 Rule-Out 01/13/2020 01/13/2020 01/13/2020 2:43 PM EST COVID-19 Rule-Out 02/22/2020 02/22/2020 02/22/2020 5:30 PM EST COVID-19 Confirmed 02/22/2020 02/22/2020 1 8:12 PM EDT COVID-19 Confirmed 03/09/2021 03/09/2021 2 8:12 PM EDT documented as of this encounter Care Teams Software Verification Engineer Relationship Specialty Start Date End Date Osiris Sanchez MD [address] [place] [address] PCP - General 07/24/06 06/09/15 Jose Mcguire MD PCP - General Internal Medicine 06/10/15 05/19/19 Vandana Pierce MD PCP - General Family Medicine 05/20/19 08/03/20 Norman Arita MD [address] [place] [address] PCP - General Internal Medicine 08/04/20 03/04/22 documented as of this encounter
--- OUTSIDE RECORDS SUMMARY | 2024-11-13 16:07 | XMS_ITS | Encounter Summary ---
Author Organization [facility] Address [address] [place] [address] Care Team Providers Care Manager Event Name Role Phone Osiris Sanchez MD Primary Care Provider [phone] Jose Mcguire MD Primary Care Provider Gela Vandana Tovar MD Primary Care Provider [phone] Norman Arita MD Primary Care Provider [phone] Encounter Details Date Type Department Care Team (Late st Contact Info) Description 09/15/2008 Orders Only [facility] [address] [place] [phone] Afshin Martínez MD Social History Tobacco Use Types Packs/Day [...] 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 Procedure Name Priority Date/Time Associated Diagnosis Comments CULTURE, STREP SCREEN (GROUP A), THROAT Routine 09/15/2008 Acute Pharyngitis documented in this encounter Results * Due to [place] state law, this organization might not be sharing negative HIV tests. * (ABNORMAL) CULTURE, STREP SCREEN (GROUP A), THROAT (09/15/2008) Result(s) SEE TEXT(A) [facility] Comment: SOURCE: THROAT MODERATE GROWTH OF BETA-HEMOLYTIC STREPTOCOCCUS, NOT GROUP A 09/15/2008 09/15/2008 6:1 0 PM EDT Afshin Martínez MD LABORATORY Final Result Performing Organization Address City/State/[facility] Co de Phone Number [facility] [address] [place] [address] documented in this encounter Visit Diagnoses Diagnosis Acute pharyngitis documented in this encounter Additional Health Concerns Infection Onset Date Last Indicated Resolved Time COVID-19 Rule-Out 01/13/2020 01/13/2020 01/13/2020 2:43 PM EST COVID-19 Rule-Out 02/22/2020 02/22/2020 02/22/2020 5:30 PM EST COVID-19 Confirmed 02/22/2020 02/22/2020 1 8:12 PM EDT COVID-19 Confirmed 03/09/2021 03/09/2021 2 8:12 PM EDT documented as of this encounter Care Teams Manager Event Relationship Specialty Start Date End Date Osiris Sanchez MD [address] [place] [address] PCP - General 07/24/06 06/09/15 Jose Mcguire MD PCP - General Internal Medicine 06/10/15 05/19/19 Vandana Pierce MD PCP - General Family Medicine 05/20/19 08/03/20 Norman Arita MD [address] [place] [address] PCP - General Internal Medicine 08/04/20 03/04/22 documented as of this encounter
--- OUTSIDE RECORDS SUMMARY | 2024-11-13 16:07 | XMS_ITS | Encounter Summary ---
Author Organization [facility] Address [address] [place] [address] Care Team Providers Care Portfolio Assistant Name Role Phone Jose Mcguire MD Primary Care Provider Gela Vandana Tovar MD Primary Care Provider [phone] Norman Arita MD Primary Care Provider [phone] Encounter Details Date Type Department Care Team (Late Contact Info) Description 10/05/2016 Orders Only July Internal Medicine [address] [place] [address] Jose Mcguire MD Social History Tobacco Use [...] documented as of this encounter Care Teams Portfolio Assistant Relationship Specialty Start Date End Date Jose Mcguire MD PCP - General Internal Medicine 06/10/15 05/19/19 Vandana Pierce MD PCP - General Family Medicine 05/20/19 08/03/20 Norman Arita MD [address] [place] [address] PCP - General Internal Medicine 08/04/20 03/04/22 documented as of this encounter
--- OUTSIDE RECORDS SUMMARY | 2024-11-13 16:07 | XMS_ITS | Encounter Summary ---
Author Organization [facility] Address [address] [place] [address] Care Team Providers Care Oracle Database Manager Name Role Phone Norman Arita MD Primary Care Provider [phone] Encounter Details Date Type Department Care Team (Late st Contact Info) Description 2021 Orders Only [facility] [address] [place] [address] Norman Arita MD [address] [place] [address] Social History Tobacco Use Types Packs/Day Years Used Date Smoking Tobacco: Never Smokeless Tobacco: Never Alcohol Use Standard Drinks/Week Comments Yes 0 (1 standard drink = 0.6 oz pur e alcohol) socially PHQ-2 Answer Date [facility] SE[facility] SC[facility] (Range 0-6) 0 03/07/2021 Comments No Sex and Gender Information Value Date Recorded Sex Assigned at Female 04/12/2020 8:08 AM EST Legal Sex Female 4:49 AM EDT Gender Identity Female 11/03/2019 2:02 PM EDT Sexual Orientation Straight 04/12/2020 8: 08 AM EST 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 I will order more lab work and an ultrasound for the liver documented in this encounter Plan of Treatment [...] this encounter Procedures * Due to [place] [employer] law, this organization might not be sharing negative HIV tests. Procedure Name Priority Date/Time Associated Diagnosis Comments HEPATIC FUNCTION PANEL (ALT,AST,ALK PH,BILI'S,TP,ALB) Routine 2021 7:18 AM EDT Mixed hyperlipidemia VENIPUNCTURE Routine 2021 7:18 AM EDT Mixed hyperlipidemia documented in this encounter Results * Due to [place] Ev[place] law, this organization might not be sharing negative HIV tests. * (ABNORMAL) HEPATIC FUNCTION PANEL (ALT,AST,ALK PH,BILI'S,TP,ALB) (2021 7:18 AM EDT) Protein Total (Serum) 8.3(H) 6.1 - 8.1 g/dL [facility] Albumin 4.7 3.6 - 5.1 g/dL [facility] Globulin 3.6 1.9 - 3.7 g/dL (calc) [facility] Albumin/Globulin 1.3 1.0 - 2.5 (calc) [facility] Bilirubin Total 1.3(H) 0.2 - 1.2 mg/dL [facility] Bilirubin Direct 0.3(H) < OR = 0.2 mg/dL [facility] Bilirubin Indirect 1.0 0.2 - 1.2 mg/dL (calc) [facility] Alkaline phosphatase 146 37 - 153 U/L [facility] AST (SGOT) 56(H) 10 - 35 U/L [facility] ALT (SGPT) 69(H) 6 - 29 U/L [facility] 2021 7:18 AM EDT 06/25/2021 1:31 AM EDT Narrative Resulting Agency Comment [id number] us Norman Arita MD LABORATORY Final Result [facility] [address] [place] [address] * (ABNORMAL) LIPID PANEL WITH REFLEX TO DIRECT LDL (2021 7:18 AM EDT) Cholesterol 131 <200 mg/dL [facility] HDL Cholesterol 44(L) > OR = 50 mg/dL [facility] Triglyceride 96 <150 mg/dL [facility] LDL Cholesterol 69 mg/dL (calc) [facility] Comment: Reference range: [...] LDL-C. Junior BASILIO et al. RASHI. 2013;310(19): 2393-3390 (http://education.HomeRun/faq/RXQ016) CHOL/HDL Ratio 3.0 <5.0 (calc) [facility] Cholesterol Non-HDL 87 <130 mg/dL (calc) [facility] Comment: For patients with diabetes plus 1 major ASCVD risk factor, treating to a non-HDL-C goal of <100 mg/dL (LDL-C of <70 mg/dL) is considered a therapeutic option. 2021 7:18 AM EDT 06/25/2021 1:31 AM EDT Narrative Resulting Agency Comment [id number] us Norman Arita MD LABORATORY Final Result Performing Organization Address City/State/[facility] Co de Phone Number [facility] [address] [place] [address] documented in this encounter Visit Diagnoses Diagnosis Mixed hyperlipidemia documented in this encounter Care Teams Oracle Database Manager Relationship Specialty Start Date End Date Norman Arita MD [address] [place] [address] PCP - General Internal Medicine 08/04/20 03/04/22 documented as of this encounter
--- OUTSIDE RECORDS SUMMARY | 2024-11-13 16:07 | XMS_ITS | Encounter Summary ---
Author Organization [facility] Address [address] [place] [address] Care Team Providers Care Central Supply Worker Name Role Phone Osiris Sanchez MD Primary Care Provider [phone] Jose Mcguire MD Primary Care Provider Gela Vandana Tovar MD Primary Care Provider [phone] Norman Arita MD Primary Care Provider [phone] Reason for Visit * Reason Onset Date Comments Refill Request 12/23/2013 Encounter Details Date Type Department Care Team (Late st Contact Info) Description 12/23/2013 Refill [facility] Internal Medicine [address] [place] [phone] Osiris Sanchez MD [address] [place] [address] Refill Request Social History Tobacco Use Types [...] 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
--- OUTSIDE RECORDS SUMMARY | 2024-11-13 16:07 | XMS_ITS | Encounter Summary ---
Author Organization [facility] Address [address] [place] [address] Care Team Providers Care Cleaning And Maintenance Worker Name Role Phone Norman Arita MD Primary Care Provider [phone] Encounter Details Date Type Department Care Team (Late st Contact Info) Description 03/08/2021 Orders Only [facility] [address] [place] [address] Norman Arita MD [address] [place] [address] Social History Tobacco Use Types Packs/Day Years Used Date Smoking Tobacco: Never Smokeless Tobacco: Never Alcohol Use Standard Drinks/Week Comments Yes 0 (1 standard drink = 0.6 oz pur e alcohol) socially PHQ-2 Answer Date [facility] SEVERITY SCORE (Range 0-6) 0 03/07/2021 Comments No Sex and Gender Information Value Date Recorded Sex Assigned at Female 04/12/2020 8:08 AM EST Legal Sex Female 4:49 AM EDT Gender Identity Female 11/03/2019 2:02 PM EDT Sexual Orientation Straight 04/12/2020 8: 08 AM EST 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 Procedure Name Priority Date/Time Associated Diagnosis Comments VENIPUNCTURE Routine 03/08/2021 11:18 AM EST Hypothyroidism HEMOGLOBIN A1C Routine 03/08/2021 11:18 AM EST Screening for diabetes mellitus HEPATIC FUNCTION PANEL (ALT,AST,ALK PH,BILI'S,TP,ALB) Routine 03/08/2021 11:18 AM EST Mixed hyperlipidemia LIPID PANEL WITH REFLEX TO DIRECT LDL Routine 03/08/2021 11:18 AM EST Mixed hyperlipidemia BASIC METABOLIC PANEL WITH (GFR) Routine 03/08/2021 11:18 AM EST Mixed hyperlipidemia documented in this encounter Results * Due to [place] [employer] law, this organization might not be sharing negative HIV tests. * HEMOGLOBIN A1C (03/08/2021 11:18 AM EST) Hemoglobin A1C 5.3 <5.7 % of total Hgb [facility] [...] diagnosis of diabetes in children. According to [place] Diabetes Association (ADA) guidelines, hemoglobin A1c <7.0% represents optimal control in non- diabetic patients. Different metrics may apply to specific patient populations. Standards of Medical Care in Diabetes(ADA). Estimated Average Glucose 111 mg/dL (calc) [facility] 03/08/2021 11:1 8 AM EST 03/09/2021 12:33 AM EST Narrative Resulting Agency Comment [id number] us Norman Arita MD LABORATORY Final Result [facility] [address] [place] [address] * (ABNORMAL) LIPID PANEL WITH REFLEX TO DIRECT LDL (03/08/2021 11:18 AM EST) Cholesterol 273(H) <200 mg/dL [facility] HDL Cholesterol 39(L) > OR = 50 mg/dL [facility] Triglyceride 414(H) <150 mg/dL [facility] Comment: If a non-fasting specimen was collected, consider repeat triglyceride testing on a fasting specimen if clinically indicated. Marie et al. J. of Clin. Lipidol. 2015;9:129-169. LDL Cholesterol SEE NOTE mg/dL (calc) [facility] [...] LDL-C. Junior BASILIO et al. RASHI. 2013;310(19): 4423-8497 (http://education.[employer]Vizimax/faq/EWR904) CHOL/HDL Ratio 7.0(H) <5.0 (calc) [facility] Cholesterol Non-HDL 234(H) <130 mg/dL (calc) [facility] Comment: For patients with diabetes plus 1 major ASCVD risk factor, treating to a non-HDL-C goal of <100 mg/dL (LDL-C of <70 mg/dL) is considered a therapeutic option. LDL, Direct Measure 149(H) <100 mg/dL [facility] Comment: Desirable range <100 mg/dL for primary prevention; <70 mg/dL for patients with CHD or diabetic patients with > or = 2 CHD risk factors. 03/08/2021 11:1 8 AM EST 03/09/2021 12:33 AM EST Narrative Resulting Agency Comment [id number] Norman Arita MD LABORATORY Final Result Performing Organization Address [facility] de Phone Number [employer] [address] [place] [address] * (ABNORMAL) HEPATIC FUNCTION PANEL (ALT,AST,ALK PH,BILI'S,TP,ALB) (03/08/2021 11:18 AM EST) Protein Total (Serum) 8.2(H) 6.1 - 8.1 g/dL [facility] Albumin 4.7 3.6 - 5.1 g/dL [facility] Globulin 3.5 1.9 - 3.7 g/dL (calc) [facility] Albumin/Globulin 1.3 1.0 - 2.5 (calc) [facility] Bilirubin Total 1.1 0.2 - 1.2 mg/dL [facility] Bilirubin Direct 0.2 < OR = 0.2 mg/dL [facility] Bilirubin Indirect 0.9 0.2 - 1.2 mg/dL (calc) [facility] Alkaline phosphatase 114 37 - 153 U/L [facility] AST (SGOT) 24 10 - 35 U/L [facility] ALT (SGPT) 24 6 - 29 U/L [facility] 03/08/2021 11:1 8 AM EST 03/09/2021 12:33 AM EST Narrative Resulting Agency Comment [id number] Norman Arita MD LABORATORY Final Result Performing Organization Address City/[facility]/ZIP Co de Phone Number [facility] [address] [place] [address] * BASIC METABOLIC PANEL WITH (GFR) (03/08/2021 11:18 AM EST) Glucose 88 65 - 99 mg/dL [facility] Comment:Fasting reference in terval Urea Nitrogen Blood (BUN) 9 7 - 25 mg/dL [facility] Creatinine 0.77 0.50 - 1.05 mg/dL [facility] Comment: For patients >49 years of age, the reference limit for Creatinine is approximately 13% higher for people identified as -[place]. EGFR 89 > OR = 60 mL/min/1 .73m2 [facility] GFR () 104 > OR = 60 mL/min/1 .73m2 [facility] BUN/Creatinine Ratio NOT APPLICABLE 6 - 22 (calc) [facility] Sodium 137 135 - 146 mmol/L [facility] Potassium 3.9 3.5 - 5.3 mmol/L [facility] Chloride 100 98 - 110 mmol/L [facility] Carbon dioxide 27 20 - 32 mmol/L [facility] Calcium 9.9 8.6 - 10.4 mg/dL [facility] 03/08/2021 11:1 8 AM EST 03/09/2021 12:33 AM EST Narrative [facility] - 03/09/2021 3:04 AM EST Please note that this estimated GFR [...] needs for GFR calculation. Resulting Agency Comment [id number] us Norman Arita MD LABORATORY Final Result [facility] [address] [place] [address] * THYROID STIMULATING HORMONE (TSH) WITH FREE T4 REFLEX, SERUM (03/08/2021 11:18 AM EST) TSH 1.31 mIU/L [facility] Comment: Reference Range > or = 20 Years 0.40-4.50 Ranges First trimester 0.26-2.66 Second trimester 0.55-2.73 Third trimester 0.43-2.91 03/08/2021 11:1 8 AM EST 03/09/2021 12:33 AM EST Narrative Resulting Agency Comment [id number] us Norman Arita MD LABORATORY Final Result [facility] [address] [place] [address] documented in this encounter Visit Diagnoses Diagnosis Hypothyroidism Unspecified hypothyroidism Mixed hyperlipidemia Screening for diabetes mellitus documented in this encounter Additional Health Concerns Infection Onset Date Last Indicated Resolved Time COVID-19 Confirmed 03/09/2021 03/09/2021 8:12 PM EDT documented as of this encounter Care Teams Cleaning And Maintenance Worker Relationship Specialty Start Date End Date Norman Arita MD [address] [place] [address] PCP - General Internal Medicine 08/04/20 03/04/22 documented as of this encounter
--- OUTSIDE RECORDS SUMMARY | 2024-11-13 16:07 | XMS_ITS | Encounter Summary ---
Author Organization [facility] Address [address] [place] [address] Care Team Providers Care Completion Supervisor Name Role Phone Jose Mcguire MD Primary Care Provider Vandana Vazquez MD Primary Care Provider Norman Arita MD Primary Care Provider [phone] Reason for Referral * (Routine) - Incomplete Specialty Diagnoses / Procedures Referred By Adiel tijerina Referred To Contact Diagnoses Varicose vein of leg Procedures REQUEST FOR VENOUS REFLUX STUDY - RIGHT LEG (DX: VARICOSE VEINS) NON-FC Jose Mcguire MD Referral ID Status Reason Start Date Expiration Date V isits Requested Visits Authorized [id number] Incomplete 10/05/2016 1 1 * (Routine) - Incomplete Specialty Diagnoses / Procedures Referred By Adiel tijerina Referred To Contact Diagnoses Varicose vein of leg Procedures REQUEST FOR VENOUS REFLUX STUDY - LEFT LEG (DX: VARICOSE VEINS) NON-FC Jose Mcguire MD Referral ID Status Reason Start Date Expiration Date V isits Requested Visits Authorized [id number] Incomplete 10/05/2016 1 1 Encounter Details Date Type Department Care Team (Late st Contact Info) Description 10/05/[address] [facility] [address] [place] [address] Jose Mcguire MD Social History Tobacco Use [...] of this encounter Plan of Treatment Scheduled Orders Name Type Priority Associated Diagnoses Orde r Schedule REQUEST FOR VENOUS REFLUX STUDY - LEFT LEG (DX: VARICOSE VEINS) NON-FC cardiovascular Routine Varicose vein of leg Ordered: 10/05/2016 REQUEST FOR VENOUS REFLUX STUDY - RIGHT LEG (DX: VARICOSE VEINS) NON-FC cardiovascular Routine Varicose vein of leg Ordered: 10/05/2016 documented as of this encounter Visit Diagnoses Diagnosis Varicose vein of leg Asymptomatic varicose veins documented in this encounter Additional Health Concerns Infection Onset Date Last Indicated Resolved Time COVID-19 Rule-Out 01/13/2020 01/13/2020 01/13/2020 2:43 PM EST COVID-19 Rule-Out 02/22/2020 02/22/2020 02/22/2020 5:30 PM EST COVID-19 Confirmed 02/22/2020 02/22/2020 1 8:12 PM EDT COVID-19 Confirmed 03/09/2021 03/09/2021 2 8:12 PM EDT documented as of this encounter Care Teams Completion Supervisor Relationship Specialty Start Date End Date Jose Mcguire MD PCP - General Internal Medicine 06/10/15 05/19/19 Vandana Pierce MD PCP - General Family Medicine 05/20/19 08/03/20 Norman Arita MD [address] [place] [address] PCP - General Internal Medicine 08/04/20 03/04/22 documented as of this encounter
--- OUTSIDE RECORDS SUMMARY | 2024-11-13 16:07 | XMS_ITS | Encounter Summary ---
Author Organization [facility] Address [address] [place] [address] Care Team Providers Care Director Of Assessing Name Role Phone Osiris Sanchez MD Primary Care Provider [phone] Jose Mcguire MD Primary Care Provider Gela Vandana Tovar MD Primary Care Provider [phone] Norman Arita MD Primary Care Provider [phone] Encounter Details Date Type Department Care Team (Late st Contact Info) Description 09/14/2008 Orders Only [facility] [address] [place] [id number] Afshin Martínez MD Social History Tobacco Use [...] 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 Procedure Name Priority Date/Time Associated Diagnosis Comments MICROSCOPIC URINE STAT (All results called to provider) 09/14/2008 CULTURE, URINE Routine 09/14/2008 UTI (Urinary Tract Infection) URINALYSIS, DIPSTICK WITH REFLEX MICROSCOPIC STAT (All results called to provider) 09/14/2008 UTI (Urinary Tract Infection) documented in this encounter Results * Due to [place] state law, this organization might not be sharing negative HIV tests. * (ABNORMAL) MICROSCOPIC URINE (09/14/2008) WBC (URINE) 40-60(A) 0-4/HPF [facility] RBC (Urine Sed) 6-10(A) 0-3/[facility]PF [facility] EPITHELIAL CELLS.SQUAMOUS (URINE SED) 0-5 0-5/HPF [facility] EPITHELIAL CELLS.TRANSITIO NAL (URINE SED) 0 0-5/HPF [facility] EPITHELIAL CELLS.RENAL (URINE SED) 0 0-3/HPF [facility] BACTERIA (URINE) MANY(A) NONE SEEN [facility] 09/14/2008 09/14/2008 6:2 9 PM EDT Narrative [facility] - 09/14/2008 6:56 PM EDT Report Comments: PLEASE FAX RESULTS TO [facility], us Afshin Martínez MD LABORATORY Final Result Performing Organization Address City/State/[facility] Co de Phone Number [facility] [address] [place] [address] * (ABNORMAL) CULTURE, URINE (09/14/2008) URINE CULTURE CLEAN VOID SEE TEXT(A) [facility] Comment: SOURCE: URINE (#1) >100,000 CFU/ML E COLI SUSCEPTIBILITIES #1 AMPICILLIN <8 S AMPICILLIN/SUL <8 S AUGMENTIN <8 S CEFAZOLIN <8 S CEFEPIME <4 S CEFOTAXIME <2 S CEFTRIAXONE <8 S CEFUROXIME <4 S CIPROFLOXACIN <1 S ERTAPENEM <2 S GENTAMICIN <4 S LEVOFLOXACIN <2 S NITROFURANTOIN <32 S PIPERACILLIN/TA <16 S TIMENTIN <16 S TOBRAMYCIN <4 S TRIMETH/SULFA <2 S 09/14/2008 09/14/2008 6:2 9 PM EDT Narrative [facility] - 09/17/2008 6:09 AM EDT Report Comments: PLEASE FAX RESULTS TO [facility], Afshin Martínez MD LABORATORY Final Result Performing Organization Address [facility] de Phone Number [facility] [address] [place] [address] * (ABNORMAL) URINALYSIS, DIPSTICK WITH REFLEX MICROSCOPIC (09/14/2008) COLOR (URINE) YELLOW YELLOW [facility] APPEARANCE (URINE) CLOUDY(A) CLEAR [facility] SPECIFIC GRAVITY 1.015 1.001 - 1.035 [facility] PH (URINE) 6.5 5.0 - 8.0 [facility] PROTEIN (URINE) NEG NEG [facility] GLUCOSE (URINE) NEG NEG [facility] Ketones (Urine) NEG NEG [facility] BILIRUBIN (URINE) NEG NEG [facility] BLOOD (URINE) 3+(A) NEG [facility] WBC (URINE) 3+(A) NEG [facility] NITRITE (URINE) NEG NEG [facility] 09/14/2008 09/14/2008 6:2 9 PM EDT Narrative [facility] - 09/14/2008 6:56 PM EDT Report Comments: PLEASE FAX RESULTS TO [facility], Afshin Martínez MD LAB SAME DAY RESULT Final Re sult Performing Organization Address [facility] de Phone Number [facility] [address] [place] [address] documented in this encounter Visit Diagnoses Diagnosis [...] documented as of this encounter Care Teams Director Of Assessing Relationship Specialty Start Date End Date Osiris Sanchez MD [address] [place] [address] PCP - General 07/24/06 06/09/15 Jose Mcguire MD PCP - General Internal Medicine 06/10/15 05/19/19 Vandana Pierce MD PCP - General Family Medicine 05/20/19 08/03/20 Norman Arita MD [address] [place] [address] PCP - General Internal Medicine 08/04/20 03/04/22 documented as of this encounter
--- OUTSIDE RECORDS SUMMARY | 2024-11-13 16:07 | XMS_ITS | Encounter Summary ---
Author Organization [facility] Address [address] [place] [address] Care Team Providers Care Gas Welding Equipment Mechanic Name Role Phone Osiris Sanchez MD Primary Care Provider [phone] Jose Mcguire MD Primary Care Provider Gela Vandana Tovar MD Primary Care Provider [phone] Norman Arita MD Primary Care Provider [phone] Reason for Referral * OUTPT PROCEDURES AND DIAGNOSTICS (Routine) - Closed Specialty Diagnoses / Procedures Referred By Adiel tijerina Referred To Contact CT Scan Diagnoses Nonspecific (abnormal) findings on radiological and other examination of other intrathoracic organs Procedures CT CHEST W/O CONTRAST (DX: F/U ABN CHEST CT 793.2) (1 YR FROM LAST) FC CT SCAN, THORAX; W/O CONTRAST Tommy Cunningham MD [address] [place] [address] Phone: tel: fax: Referral ID Status Reason Start Date Expiration Date V isits Requested Visits Authorized [id number] Closed Continuity of Care 01/15/2014 02/14/2014 1 1 Encounter Details Date Type Department Care Team ([facility] st Contact Info) Description 01/13/2014 Orders Only [facility] Pulmonary [address] [facility] [address] [place] [address] Tommy Saldaña MD [address] [place] [address] Social History Tobacco Use Types Packs/Day Years [...] 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 * (ABNORMAL) CT CHEST W/O CONTRAST (DX: F/U [facility] CHEST CT 793.2) (1 YR FROM LAST) (01/16/2014 3:47PM EST) Pathologist Miguel Angel SINHA 2(A) Anatomical Region Laterality Modality CHEST Computed Tomogra phy 01/20/2014 2:05 PM EST Narrative 01/20/2014 2:05 PM EST EXAM: CT CHEST W/O CONTRAST (DX: F/U [facility] CHEST CT 793.2) (1 YR FROM LAST) CLINICAL HISTORY: F/U [facility] Chest CT TECHNIQUE: Volumetric imaging was performed through the chest without IV contrast. Multiplanar reconstructions were performed. FINDINGS: A dilated bronchiole is noted at the left apex consistent with focal bronchiectasis. This may contain a small calcification. The appearance is unchanged since 03/19/2012. There is a stable 3 mm nodule at the right base (image 55). There is a new 5 mm nodule medially at the right base in the azygoesophageal recess (image 63). There is no evidence of pleural fluid. No mediastinal or hilar adenopathy is identified. No obvious abnormality is seen in the visualized nonenhanced upper abdomen. No significant osseous abnormality is seen. IMPRESSION: 5 mm nodule in the right lower lobe not seen on the prior study. Stable right lower lobe 3 mm nodule since 03/19/2012. Left apical findings most consistent with a focally dilated bronchiole. Based on Fleischner 2005 Criteria, new pulmonary nodules >4 - 6 mm in low risk patients should consider having a follow-up non-contrast CT in 1 year. If unchanged, no further follow-up studies would be indicated. However, patients with a history of smoking/asbestos/radiation exposure or a 1st degree relative with lung cancer should consider having a follow-up non-contrast CT in 6-12 months. If unchanged, consider a follow-up non-contrast CT 12 months after that (18-24 months after initial study). If still unchanged, no further follow-up studies would be indicated. Note that patients with an infectious process, personal history of cancer, and those with advanced age/co-morbidities may require adjustments to these recommendations. *#P 2#* Procedure Note Jennifer Contreras MD - 01/20/2014 EXAM: CT CHEST W/O CONTRAST (DX: F/U [facility] CHEST CT 793.2) (1 YR FROM LAST) FC CLINICAL HISTORY: F/U [facility] Chest CT TECHNIQUE: Volumetric imaging was performed through the chest without IV contrast. Multiplanar reconstructions were performed. FINDINGS: A dilated bronchiole is noted at the left apex consistent with focal bronchiectasis. This may contain a small calcification. The appearance is unchanged since 03/19/2012. There is a stable 3 mm nodule at the right base (image 55). There is a new 5 mm nodule medially at the right base in the azygoesophageal recess (image 63). There is no evidence of pleural fluid. No mediastinal or hilar adenopathy is identified. No obvious abnormality is seen in the visualized nonenhanced upper abdomen. No significant osseous abnormality is seen. IMPRESSION: 5 mm nodule in the right lower lobe not seen on the prior study. Stable right lower lobe 3 mm nodule since 03/19/2012. Left apical findings most consistent with a focally dilated bronchiole. Based on Fleischner 2005 Criteria, new pulmonary nodules >4 - 6 mm in low risk patients should consider having a follow-up non-contrast CT in 1 year. If unchanged, no further follow-up studies would be indicated. However, patients with a history of smoking/asbestos/radiation exposure or a 1st degree relative with lung cancer should consider having a follow-up non-contrast CT in 6-12 months. If unchanged, consider a follow-up non-contrast CT 12 months after that (18-24 months after initial study). If still unchanged, no further follow-up studies would be indicated. Note that patients with an infectious process, personal history of cancer, and those with advanced age/co-morbidities may require adjustments to these recommendations. *#P 2#* Tommy Saldaña MD IMG CT NO CONTRAST ORDERABLES Final Result documented in this encounter Visit Diagnoses Diagnosis Solitary lung nodule- Primary Solitary pulmonary nodule documented in this encounter Additional Health Concerns Infection Onset Date Last Indicated Resolved Time COVID-19 Rule-Out 01/13/2020 01/13/2020 01/13/2020 2:43 PM EST COVID-19 Rule-Out 02/22/2020 02/22/2020 02/22/2020 5:30 PM EST COVID-19 Confirmed 02/22/2020 02/22/2020 1 8:12 PM EDT COVID-19 Confirmed 03/09/2021 03/09/2021 2 8:12 PM EDT documented as of this encounter Care Teams Gas Welding Equipment Mechanic Relationship Specialty Start Date End Date Osiris Sanchez MD [address] [place] [address] PCP - General 07/24/06 06/09/15 Jose Mcguire MD PCP - General Internal Medicine 06/10/15 05/19/19 Vandana Pierce MD PCP - General Family Medicine 05/20/19 08/03/20 Norman Arita MD [address] [place] [address] PCP - General Internal Medicine 08/04/20 03/04/22 documented as of this encounter
--- OUTSIDE RECORDS SUMMARY | 2024-11-13 16:07 | XMS_ITS | Encounter Summary ---
Author Organization [facility] Address [address] [place] [address] Care Team Providers Care Health Services Director Name Role Phone Osiris Sanchez MD Primary Care Provider [phone] Jose Mcguire MD Primary Care Provider Gela Vandana Tovar MD Primary Care Provider [phone] Norman Arita MD Primary Care Provider [phone] Encounter Details Date Type Department Care Team (Late st Contact Info) Description 10/14/2008 Orders Only [facility] [address] [place] [address] Osiris Sanchez MD [address] [place] [address] Social History Tobacco Use Types Packs/Day Years [...] 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 documented in this encounter Plan of Treatment Not on file documented as of this encounter Procedures * Due to [place] [employer] law, this organization might not be sharing negative HIV tests. Procedure Name Priority Date/Time Associated Diagnosis Comments URINALYSIS,MICROSCOPI C ONLY Routine 10/14/2008 UTI (Urinary Tract Infection) documented in this encounter Results * Due to [place] [employer] law, this organization might not be sharing negative HIV tests. * (ABNORMAL) URINALYSIS,MICROSCOPIC ONLY (10/14/2008) WBC (URINE) 10-20(A) 0-4/HPF [facility] RBC (Urine Sed) 0 0-3/HPF [facility] EPITHELIAL CELLS.SQUAMOUS (URINE SED) 0-5 0-5/HPF [facility] EPITHELIAL CELLS.TRANSITIO NAL (URINE SED) 0 0-5/HPF [facility] EPITHELIAL CELLS.RENAL (URINE SED) 0 0-3/HPF [facility] BACTERIA (URINE) NONE SEEN NONE SEEN [facility] 10/14/2008 10/14/2008 4:2 9 PM EDT Osiris Sanchez MD LAB SAME DAY RESULT Final Resul t Performing Organization Address City/State/[facility] Co de Phone Number [facility] [address] [place] [address] documented in this encounter Visit Diagnoses Diagnosis UTI (urinary tract infection)- Primary Urinary tract infection, site not specified documented in this encounter Additional Health Concerns Infection Onset Date Last Indicated Resolved Time COVID-19 Rule-Out 01/13/2020 01/13/2020 01/13/2020 2:43 PM EST COVID-19 Rule-Out 02/22/2020 02/22/2020 02/22/2020 5:30 PM EST COVID-19 Confirmed 02/22/2020 02/22/2020 1 8:12 PM EDT COVID-19 Confirmed 03/09/2021 03/09/2021 2 8:12 PM EDT documented as of this encounter Care Teams Health Services Director Relationship Specialty Start Date End Date Osiris Sanchez MD [address] [place] [address] PCP - General 07/24/06 06/09/15 Jose Mcguire MD PCP - General Internal Medicine 06/10/15 05/19/19 Vandana Pierce MD PCP - General Family Medicine 05/20/19 08/03/20 Norman Arita MD [address] [place] [address] PCP - General Internal Medicine 08/04/20 03/04/22 documented as of this encounter
--- OUTSIDE RECORDS SUMMARY | 2024-11-13 16:07 | XMS_ITS | Encounter Summary ---
Author Organization [facility] Address [address] [place] [address] Care Team Providers Care Agriculture Research Director Name Role Phone Osiris Sanchez MD Primary Care Provider [phone] Jose Mcguire MD Primary Care Provider Gela Vandana Tovar MD Primary Care Provider [phone] Norman Arita MD Primary Care Provider [phone] Encounter Details Date Type Department Care Team (Late st Contact Info) Description 09/15/2008 Orders Only May Internal Medicine [address] [place] [address] Osiris Sanchez MD [address] [place] [address] Social History Tobacco Use Types Packs/Day Years [...] 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 Not on file documented as of this encounter Plan of Treatment Not on file documented as of this encounter Visit Diagnoses Diagnosis Pelvic pain in female- Primary Unspecified symptom associated with female genital organs documented in this encounter Additional Health Concerns Infection Onset Date Last Indicated Resolved Time COVID-19 Rule-Out 01/13/2020 01/13/2020 01/13/2020 2:43 PM EST COVID-19 Rule-Out 02/22/2020 02/22/2020 02/22/2020 5:30 PM EST COVID-19 Confirmed 02/22/2020 02/22/2020 1 8:12 PM EDT COVID-19 Confirmed 03/09/2021 03/09/2021 2 8:12 PM EDT documented as of this encounter Care Teams Agriculture Research Director Relationship Specialty Start Date End Date Osiris Sanchez MD [address] [place] [address] PCP - General 07/24/06 06/09/15 Jose Mcguire MD PCP - General Internal Medicine 06/10/15 05/19/19 Vandana Pierce MD PCP - General Family Medicine 05/20/19 08/03/20 Norman Arita MD [address] [place] [address] PCP - General Internal Medicine 08/04/20 03/04/22 documented as of this encounter
--- OUTSIDE RECORDS SUMMARY | 2024-11-13 16:07 | XMS_ITS | Encounter Summary ---
Author Organization [facility] Address [address] [place] [address] Care Team Providers Care Airplane Rigger Name Role Phone Osiris Sanchez MD Primary Care Provider [phone] Jose Mcguire MD Primary Care Provider Gela Vandana Tovar MD Primary Care Provider [phone] Norman Arita MD Primary Care Provider [phone] Encounter Details Date Type Department Care Team (Late st Contact Info) Description 01/05/2014 Orders Only [facility] STOPPER SETTER [address] [facility] [address] [place] [address] Dee Mcdonald CRNP [address] [place] [address] Social History Tobacco Use Types Packs/Day Years [...] 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 * Catalina Mackenzie RN - 01/07/2014 8:31 AM ESTQuick Note: Results to BUG TRIMMER & results released to pt via my chart documented in this encounter Plan of Treatment Not on file documented as of this encounter Procedures * Due to [place] law, this organization might not be sharing negative HIV tests. Procedure Name Priority Date/Time Associated Diagnosis Comments CULTURE, URINE, ROUTINE Routine 01/05/2014 9:21 AM EST Dysuria URINALYSIS, COMPLETE INCLUDES DIPSTICK AND MICROSCOPIC Routine 01/05/2014 9:21 AM EST Dysuria documented in this encounter Results * Due to [place] law, this organization might not be sharing negative HIV tests. * CULTURE, URINE, ROUTINE (01/05/2014 9:21 AM EST) Bacteria culture (Urine) SEE NOTE [facility] Comment: {CULTURE, URINE, ROUTINE {[id number]) CULTURE, URINE, ROUTINE MICRO NUMBER: [id number] TEST STATUS: FINAL SPECIMEN SOURCE: URINE SPECIMEN QUALITY: ADEQUATE RESULT: No Growth 01/05/2014 9:21 AM EST 01/05/2014 9:47 PM EST Narrative Resulting Agency Comment [id number] us Dee [facility] Final Resul t Performing Organization Address City/State/[facility] Co de Phone Number [facility] [address] [place] [address] * URINALYSIS, COMPLETE INCLUDES DIPSTICK AND MICROSCOPIC (01/05/2014 9:21 AM EST) Color (Urine) YELLOW YELLOW [facility] Comment:{COLOR {[id number]) Appearance (Urine) CLEAR CLEAR [facility] Comment:{APPEARANCE {[id number]) Specific gravity (Urine) 1.010 1.001 - 1.035 [facility] Comment:{SPECIFIC GRAVITY {[id number]) pH (Urine) 6.5 5.0 - 8.0 [facility] Comment:{PH {[id number]) Glucose (Urine) NEGATIVE NEGATIVE [facility] Comment:{GLUCOSE {[id number]) Bilirubin (Urine) NEGATIVE NEGATIVE [facility] Comment:{BILIRUBIN {[id number]) Ketones (Urine) NEGATIVE NEGATIVE [facility] Comment:{KETONES {[id number]) Hemoglobin (Urine) NEGATIVE NEGATIVE [facility] Comment:{OCCULT BLOOD {[id number]) Protein (Urine) NEGATIVE NEGATIVE [facility] Comment:{PROTEIN {[id number]) Nitrite (Urine) NEGATIVE NEGATIVE [facility] Comment:{NITRITE {[id number]) Leukocyte esterase (Urine) NEGATIVE NEGATIVE [facility] Comment:{LEUKOCYTE ESTERASE {[id number]) WBC (Urine) NONE SEEN < OR = 5 /HPF [facility] Comment:{WBC {[id number]) RBC (Urine Sed) NONE SEEN < OR = 3 /HPF [facility] Comment:{RBC {[id number]) Epithelial cells.squamous (Urine sed) 0-5 < OR = 5 /HPF [facility] Comment:{SQUAMOUS EPITHELIAL CELLS {[id number]) Bacteria (Urine) NONE SEEN NONE SEEN /HPF [facility] Comment:{BACTERIA {[id number]) Hyaline casts (Urine sed) NONE SEEN NONE SEEN /LPF [facility] Comment:{HYALINE CAST {[id number]) 01/05/2014 9:21 AM EST 01/05/2014 9:47 PM EST Narrative Resulting Agency Comment [id number] us Dee [facility] SAME DAY RESULT Final R esult [facility] [address] [place] [address] documented in this encounter Visit Diagnoses Diagnosis Dysuria documented in this encounter Additional Health Concerns Infection Onset Date Last Indicated Resolved Time COVID-19 Rule-Out 01/13/2020 01/13/2020 01/13/2020 2:43 PM EST COVID-19 Rule-Out 02/22/2020 02/22/2020 02/22/2020 5:30 PM EST COVID-19 Confirmed 02/22/2020 02/22/2020 1 8:12 PM EDT COVID-19 Confirmed 03/09/2021 03/09/2021 2 8:12 PM EDT documented as of this encounter Care Teams Airplane Rigger Relationship Specialty Start Date End Date Osiris Sanchez MD [address] [place] [address] PCP - General 07/24/06 06/09/15 Jose Mcguire MD PCP - General Internal Medicine 06/10/15 05/19/19 Vandana Pierce MD PCP - General Family Medicine 05/20/19 08/03/20 Norman Arita MD [address] [place] [address] PCP - General Internal Medicine 08/04/20 03/04/22 documented as of this encounter
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
--- OUTSIDE RECORDS SUMMARY | 2024-11-13 16:07 | XMS_ITS | Encounter Summary ---
Author Organization [facility] Address [address] [place] [address] Care Team Providers Care Automotive Starter Repairer Name Role Phone Oisris Sanchez MD Primary Care Provider [phone] Jose Mcguire MD Primary Care Provider Gela Vandana Tovar MD Primary Care Provider [phone] Norman Arita MD Primary Care Provider [phone] Reason for Visit * Reason Onset Date Comments Refill Request 02/07/2014 Encounter Details Date Type Department Care Team (Late st Contact Info) Description 02/07/2014 Refill July Internal Medicine [address] [place] [id number] Osiris Sanchez MD [address] [place] [address] Refill Request Social History Tobacco Use Types [...] 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
--- OUTSIDE RECORDS SUMMARY | 2024-11-13 16:07 | XMS_ITS | Encounter Summary ---
Author Organization [facility] Address [address] [place] [address] Care Team Providers Care Alley Worker Name Role Phone Osiris Sanchez MD Primary Care Provider [phone] Jose Mcguire MD Primary Care Provider Gela Vandana Tovar MD Primary Care Provider [phone] Norman Arita MD Primary Care Provider [phone] Encounter Details Date Type Department Care Team (Late st Contact Info) Description 09/30/2009 Orders Only May Internal Medicine [address] [place] [address] Osiris Sanchez MD [address] [place] [address] Social History Tobacco Use Types Packs/Day Years [...] 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 Will d/w patient at next appt. 10/06 documented in this encounter Plan of Treatment Not on file documented as of this encounter Procedures * Due to [place] 2CODE Online law, this organization might not be sharing negative HIV tests. Procedure Name Priority Date/Time Associated Diagnosis Comments LIPID PANEL + CARDIAC RISK WITH REFLEX TO LDL DIRECT Routine 09/30/2009 Hyperlipidemia TSH, THYROTROPIN Routine 09/30/2009 Depression T4, FREE THYROXINE Routine 09/30/2009 Depression documented in this encounter Results * Due to [place] 2CODE Online law, this organization might not be sharing negative HIV tests. * (ABNORMAL) LIPID PANEL + CARDIAC RISK WITH REFLEX TO LDL DIRECT (09/30/2009) CHOLESTEROL, TOTAL 201(H) 125 - 200 MG/DL [facility] TRIGLYCERIDES 255(H) 30 - 149 MG/DL [facility] HDL-CHOLESTEROL 36(L) 40 - 77 MG/DL [facility] LDL-CHOLESTEROL 114 62 - 130 MG/DL [facility] Comment: RISK CATEGORY: LDL-CHOLESTEROL GOAL CHD AND CHD RISK EQUIVALENTS: <100 MULTIPLE (2+) FACTORS: <130 ZERO TO ONE RISK FACTOR: <160 CHD RELATIVE RISK RATIO (TOTAL/HDL) 5.58(H) 0.0 - 5.0 [facility] Comment:(1.5 X AVERAGE) 09/30/2009 09/30/2009 12: 54 PM EDT us Osiris Sanchez MD LABORATORY Final Result Performing Organization Address City/State/[facility] [[email or web address]] Co de Phone Number [facility] [address] [place] [address] * T4, FREE THYROXINE (09/30/2009) FT4 1.02 0.8 - 1.8 NG/DL [facility] 09/30/2009 09/30/2009 12: 54 PM EDT Osiris Sanchez MD LABORATORY Final Result Performing Organization Address City/[facility]/ZIP Co de Phone Number [facility] [address] [place] [address] * TSH (THYROTROPIN) (09/30/2009) TSH, THYROTROPIN 2.180 0.40 - 4.50 UIU/ML [facility] 09/30/2009 09/30/2009 12: 54 PM EDT Osiris Sanchez MD LABORATORY Final Result Performing Organization Address City/[facility] [[email or web address]] Co de Phone Number [facility] [address] [place] [address] documented in this encounter Visit Diagnoses Diagnosis Depression Depressive disorder, not elsewhere classified Hyperlipidemia Other and unspecified hyperlipidemia documented in this encounter Additional Health Concerns Infection Onset Date Last Indicated Resolved Time COVID-19 Rule-Out 01/13/2020 01/13/2020 01/13/2020 2:43 PM EST COVID-19 Rule-Out 02/22/2020 02/22/2020 02/22/2020 5:30 PM EST COVID-19 Confirmed 02/22/2020 02/22/2020 1 8:12 PM EDT COVID-19 Confirmed 03/09/2021 03/09/2021 2 8:12 PM EDT documented as of this encounter Care Teams Alley Worker Relationship Specialty Start Date End Date Osiris Sanchez MD [address] [place] [address] PCP - General 07/24/06 06/09/15 Jose Mcguire MD PCP - General Internal Medicine 06/10/15 05/19/19 Vandana Pierce MD PCP - General Family Medicine 05/20/19 08/03/20 Norman Arita MD [address] [place] [address] PCP - General Internal Medicine 08/04/20 03/04/22 documented as of this encounter
--- OUTSIDE RECORDS SUMMARY | 2024-11-13 16:07 | XMS_ITS | Encounter Summary ---
Author Organization [facility] Address [address] [place] [address] Care Team Providers Care Yeast Distiller Name Role Phone Osiris Sanchez MD Primary Care Provider [phone] Jose Mcguire MD Primary Care Provider Gela Vandana Tovar MD Primary Care Provider [phone] Norman Arita MD Primary Care Provider [phone] Encounter Details Date Type Department Care Team (Late st Contact Info) Description 02/17/2009 Orders Only May Internal Medicine [address] [place] [address] Osiris Sanchez MD [address] [place] [address] Social History Tobacco Use Types Packs/Day Years [...] 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 * (ABNORMAL) T4, FREE THYROXINE (08/23/2009) FT4 0.78(L) 0.8 - 1.8 NG/DL [facility] 08/23/2009 08/23/2009 1:1 2 PM EDT us Osiris Sanchez MD LABORATORY Final Result Performing Organization Address [facility] Co de Phone Number [facility] [address] [place] [address] * TSH (THYROTROPIN) (08/23/2009) TSH, THYROTROPIN 2.107 0.40 - 4.50 UIU/ML [facility] 08/23/2009 08/23/2009 1:1 2 PM EDT us Osiris Sanchez MD LABORATORY Final Result Performing Organization Address [facility] Co de Phone Number [facility] [address] [place] [address] * (ABNORMAL) LIPID PANEL + CARDIAC RISK WITH REFLEX TO LDL DIRECT (08/23/2009) CHOLESTEROL, TOTAL 223(H) 125 - 200 MG/DL [facility] TRIGLYCERIDES 166(H) 30 - 149 MG/DL [facility] HDL-CHOLESTEROL 41 40 - 77 MG/DL [facility] LDL-CHOLESTEROL 149(H) 62 - 130 MG/DL [facility] Comment: RISK CATEGORY: LDL-CHOLESTEROL GOAL CHD AND CHD RISK EQUIVALENTS: <100 MULTIPLE (2+) FACTORS: <130 ZERO TO ONE RISK FACTOR: <160 CHD RELATIVE RISK RATIO (TOTAL/HDL) 5.44(H) 0.0 - 5.0 [facility] Comment:(1.5 X AVERAGE) 08/23/2009 08/23/2009 1:1 2 PM EDT us Osiris Sanchez MD LABORATORY Final Result Performing Organization Address City/[facility] Co de Phone Number [facility] [address] [place] [phone] * BASIC METABOLIC PANEL W/GLOMERULAR FILTRATION RATE (EGFR) (08/23/2009) Pathologist [facility] CALCIUM 9.3 8.6 - 10.2 MG/DL [facility] BUN 13 7 - 25 MG/DL [facility] CREATININE 0.90 0.59 - 1.07 MG/DL [facility] Glucose 91 65 - 99 MG/DL [facility] SODIUM 141 135 - 146 MMOL/L [facility] POTASSIUM 3.9 3.5 - 5.3 MMOL/L [facility] CHLORIDE 104 98 - 110 MMOL/L [facility] CARBON DIOXIDE 24 21 - 33 MMOL/L [facility] GFR > 60 60 AND ABOVE [facility] Comment:UNITS: ML/MIN/1.73 S Q METERS EGFR > 60 60 AND ABOVE [facility] Comment:UNITS: ML/MIN/1.73 S Q METERS 08/23/2009 08/23/2009 1:1 2 PM EDT Narrative [facility] - 08/24/2009 2:09 AM EDT Please note that this estimated [...] calculation. Osiris Sanchez MD LABORATORY Final Result Performing Organization Address City/State/[place] Co de Phone Number [facility] [address] [place] [address] * (ABNORMAL) CBC 5 PART DIFF (08/23/2009) [facility] WHITE BLOOD COUNT 4.4 3.8 - 10.8 THOUS/UL [facility] RBC 4.38 3.80 - 5.10 MIL/UL [facility] Hemoglobin 13.0 11.7 - 15.5 G/DL [facility] HCT (HEMATOCRIT) 37.7 35.0 - 45.0 % [facility] MCV 86.1 80.0 - 100.0 FL [facility] MCH 29.7 27.0 - 33.0 PG [facility] MCHC 34.5 32.0 - 36.0 G/DL [facility] BAND % 0 0 - 5 % [facility] NEUTROPHIL % 43(L) 48 - 75 % [facility] LYMPHOCYTE % 44(H) 17 - 40 % [facility] MONOCYTE % 7 0 - 14 % [facility] EOSINOPHIL % 5 0 - 5 % [facility] BASOPHIL % 1 0 - 3 % [facility] ATYPICAL LYMPHOCYTE % 0 0 - 5 % [facility] PLATELETS 132(L) 140 - 400 THOUS/UL [facility] BANDS # 0 0 - 750 CELLS/MCL [facility] NEUTROPHILS # 1892 1500 - 7800 CELLS/MCL [facility] LYMPHOCYTES # 1936 850 - 3900 CELLS/MCL [facility] MONOCYTES # 308 200 - 950 CELLS/MCL [facility] EOSINOPHILS # 220 15 - 550 CELLS/MCL [facility] BASOPHILS # 44 0 - 200 CELLS/MCL [facility] ATYPICAL LYMPHOCYTES # 0 0 - 200 CELLS/MCL [facility] RDW 13.3 11.0 - 15.0 % [facility] MPV 9.4 7.5 - 11.5 FL [facility] 08/23/2009 08/23/2009 1:1 2 PM EDT Osiris Sanchez MD LAB SAME DAY RESULT Final Resul t Performing Organization Address City/State/[facility] de Phone Number [facility] [address] [place] [address] documented in this encounter Visit Diagnoses Diagnosis Mood Disorder (F39)- Primary Mood Disorder (F39) documented in this encounter Additional Health Concerns Infection Onset Date Last Indicated Resolved Time COVID-19 Rule-Out 01/13/2020 01/13/2020 01/13/2020 2:43 PM EST COVID-19 Rule-Out 02/22/2020 02/22/2020 02/22/2020 5:30 PM EST COVID-19 Confirmed 02/22/2020 02/22/2020 1 8:12 PM EDT COVID-19 Confirmed 03/09/2021 03/09/2021 2 8:12 PM EDT documented as of this encounter Care Teams Yeast Distiller Relationship Specialty Start Date End Date Osiris Sanchez MD [address] [place] [address] PCP - General 07/24/06 06/09/15 Jose Mcguire MD PCP - General Internal Medicine 06/10/15 05/19/19 Vandana Pierce MD PCP - General Family Medicine 05/20/19 08/03/20 Norman Arita MD [address] [place] [address] PCP - General Internal Medicine 08/04/20 03/04/22 documented as of this encounter
--- OUTSIDE RECORDS SUMMARY | 2024-11-13 16:07 | XMS_ITS | Encounter Summary ---
Author Organization [facility] Address [address] [place] [address] Care Team Providers Care Spinning Supervisor Name Role Phone Osiris Sanchez MD Primary Care Provider [phone] Jose Mcguire MD Primary Care Provider Vandana Vazquez MD Primary Care Provider [phone] [place] Arita MD Primary Care Provider [phone] Reason for Referral * OUTPT PROCEDURES AND DIAGNOSTICS (Routine) - Closed Specialty Diagnoses / Procedures Referred By Adiel tijerina Referred To Contact CT Scan Diagnoses Abnormal findings on diagnostic imaging of other specified body structures Procedures CT CHEST W/O CONTRAST (DX: F/U ABNL CHEST CT 793.2) (1 YR FROM LAST) Osiris Sanchez MD Phone: tel: fax: Referral ID Status Reason Start Date Expiration Date V isits Requested Visits Authorized [id number] Closed Continuity of Care 12/29/2014 02/27/2015 1 1 Encounter Details Date Type Department Care Team (Late st Contact Info) Description 02/01/2014 Orders Only [facility] Pulmonary [address] [place] [address] Tommy Saldaña MD [address] [place] [address] Social History Tobacco Use Types Packs/Day Years [...] 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 * CT CHEST W/O CONTRAST (DX: F/U ABNL CHEST CT 793.2) (1 YR FROM LAST) FC (01/15/2015 4:47 PM EST) Pathologist [facility] BHARATH 9 Anatomical Region Laterality Modality CHEST Computed Tomogra phy 01/22/2015 1:14 PM EST Narrative 01/22/2015 1:14 PM EST HISTORY: F/U Abnl Chest CT COMPARISON: 01/16/2014 and 03/19/2012 TECHNIQUE: Sequential noncontrast axial images were obtained from the level of the thoracic inlet through the upper abdomen. Reformatted coronal and sagittal imaging was performed. FINDINGS: Lungs and large airways: The 5 mm nodule within the azygos esophageal recess seen on the prior examination is no longer apparent. The 3 mm posterior segment RIGHT lower lobe nodule is unchanged. A dilated LEFT apical bronchiole is again seen, also unchanged. No new nodules are identified. No areas of consolidation are demonstrated. The central airways are patent. Pleura: Normal. No pleural effusion or thickening. Heart and pericardium: Heart size is normal. No pericardial effusion. Mediastinum and clyde: Normal. Chest wall and lower neck: Normal. Vessels: Within normal limits Bones: Normal. Upper abdomen: Within normal limits. IMPRESSION: Nonvisualization of previously seen 5 mm azygoesophageal recess nodule. Greater than two-year stability of 3 mm RIGHT lower lobe pulmonary nodule. Based on Fleischner 2005 Criteria and the stability of the pulmonary lesion from prior studies, no further follow-up imaging studies are necessary. Any additional CT evaluation would now need to be based on clinical assessment. *#P 9#* Procedure Note Gabriella Denny MD - 01/22/2015 HISTORY: F/U Abnl Chest CT COMPARISON: 01/16/2014 and 03/19/2012 TECHNIQUE: Sequential noncontrast axial images were obtained from the level of the thoracic inlet through the upper abdomen. Reformatted coronal and sagittal imaging was performed. FINDINGS: Lungs and large airways: The 5 mm nodule within the azygos esophageal recess seen on the prior examination is no longer apparent. The 3 mm posterior segment RIGHT lower lobe nodule is unchanged. A dilated LEFT apical bronchiole is again seen, also unchanged. No new nodules are identified. No areas of consolidation are demonstrated. The central airways are patent. Pleura: Normal. No pleural effusion or thickening. Heart and pericardium: Heart size is normal. No pericardial effusion. Mediastinum and clyde: Normal. Chest wall and lower neck: Normal. Vessels: Within normal limits Bones: Normal. Upper abdomen: Within normal limits. IMPRESSION: Nonvisualization of previously seen 5 mm azygoesophageal recess nodule. Greater than two-year stability of 3 mm RIGHT lower lobe pulmonary nodule. Based on Fleischner 2005 Criteria and the stability of the pulmonary lesion from prior studies, no further follow-up imaging studies are necessary. Any additional CT evaluation would now need to be based on clinical assessment. *#P 9#* Tommy Saldaña MD IMG CT NO CONTRAST ORDERABLES Final Result documented in this encounter Visit Diagnoses Diagnosis Lung nodules- Primary Other nonspecific abnormal finding of lung field documented in this encounter Additional Health Concerns Infection Onset Date Last Indicated Resolved Time COVID-19 Rule-Out 01/13/2020 01/13/2020 01/13/2020 2:43 PM EST COVID-19 Rule-Out 02/22/2020 02/22/2020 02/22/2020 5:30 PM EST COVID-19 Confirmed 02/22/2020 02/22/2020 1 8:12 PM EDT COVID-19 Confirmed 03/09/2021 03/09/2021 2 8:12 PM EDT documented as of this encounter Care Teams Spinning Supervisor Relationship Specialty Start Date End Date Osiris Sanchez MD [address] [place] [address] PCP - General 07/24/06 06/09/15 Jose Mcguire MD PCP - General Internal Medicine 06/10/15 05/19/19 Vandana Pierce MD PCP - General Family Medicine 05/20/19 08/03/20 [place] Arita MD [address] [place] [address] PCP - General Internal Medicine 08/04/20 03/04/22 documented as of this encounter
--- OUTSIDE RECORDS SUMMARY | 2024-11-13 16:07 | XMS_ITS | Encounter Summary ---
Author Organization [facility] Address [address] [place] [address] Care Team Providers Care Inserting Operator Name Role Phone Jose Mcguire MD Primary Care Provider Vandana Vazquez MD Primary Care Provider [phone] [place] Arita MD Primary Care Provider [phone] Encounter Details Date Type Department Care Team (Late Contact Info) Description 09/22/2016 Orders Only [facility] [address] [place] [address] Jose Mcguire MD Social History Tobacco Use [...] encounter Progress Notes * Jose Mcguire - 10/02/2016 9:16 PM EDT Pt seen on 09/28 * Kiki France - 09/27/2016 1:11 PM EDT Pt has CPE with PCP tomorrow documented in this encounter Plan of Treatment Not on file documented as of this encounter Procedures * Due to [place] [employer] law, this organization might not be sharing negative HIV tests. Procedure Name Priority Date/Time Associated Diagnosis Comments LIPID PANEL WITH REFLEX TO DIRECT LDL Routine 09/22/2016 8:15 AM EDT Lipids blood increased documented in this encounter Results * Due to [place] [employer] law, this organization might not be sharing negative HIV tests. * (ABNORMAL) LIPID PANEL WITH REFLEX TO DIRECT LDL (09/22/2016 8:15 AM EDT) Cholesterol 242(H) 125 - 200 mg/dL [facility] HDL Cholesterol 26(L) > OR = 46 mg/dL [facility] Triglyceride 669(H) <150 mg/dL [facility] LDL Cholesterol SEE NOTE <130 mg/dL (calc) [facility] Comment: LDL cholesterol not calculated. Triglyceride levels greater than 400 mg/dL invalidate calculated LDL results. Desirable range <100 mg/dL for patients with CHD or diabetes and <70 mg/dL for diabetic patients with known heart disease. CHOL/HDL Ratio 9.3(H) < OR = 5.0 (calc) [facility] Cholesterol Non-HDL 216(H) mg/dL (calc) [facility] Comment: Target for non-HDL cholesterol is 30 mg/dL higher than LDL cholesterol target. LDL, Direct Measure 107 <130 mg/dL [facility] Comment: Desirable range <100 mg/dL for patients with CHD or diabetes and <70 mg/dL for diabetic patients with known heart disease. 09/22/2016 8:15 AM EDT 09/22/2016 4:26 PM EDT Narrative Resulting Agency Comment [id number] Jose Mcguire MD LABORATORY Final Result [facility] [address] [place] [id number] documented in this encounter Visit Diagnoses Diagnosis Lipids blood increased Other and unspecified hyperlipidemia documented in this encounter Additional Health Concerns Infection Onset Date Last Indicated Resolved Time COVID-19 Rule-Out 01/13/2020 01/13/2020 01/13/2020 2:43 PM EST COVID-19 Rule-Out 02/22/2020 02/22/2020 02/22/2020 5:30 PM EST COVID-19 Confirmed 02/22/2020 02/22/2020 1 8:12 PM EDT COVID-19 Confirmed 03/09/2021 03/09/2021 2 8:12 PM EDT documented as of this encounter Care Teams Inserting Operator Relationship Specialty Start Date End Date Jose Mcguire MD PCP - General Internal Medicine 06/10/15 05/19/19 Vandana Pierce MD PCP - General Family Medicine 05/20/19 08/03/20 [place] Arita MD [address] [place] [address] PCP - General Internal Medicine 08/04/20 03/04/22 documented as of this encounter
--- OUTSIDE RECORDS SUMMARY | 2024-11-13 16:07 | XMS_ITS | Encounter Summary ---
Author Organization [facility] Address [address] [place] [address] Care Team Providers Care Field Operations Farm Manager Name Role Phone Osiris Sanchez MD Primary Care Provider [phone] Jose Mcguire MD Primary Care Provider Gela Vandana Tovar MD Primary Care Provider [phone] [place] Arita MD Primary Care Provider [phone] Encounter Details Date Type Department Care Team (Late st Contact Info) Description 12/28/2009 Orders Only [facility] [address] [place] [address] Osiris Sanchez MD [address] [place] [address] Social History Tobacco Use Types Packs/Day Years [...] 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 Will d/w patient at next appt.today documented in this encounter Plan of Treatment Not on file documented as of this encounter Procedures * Due to [place] [employer] law, this organization might not be sharing negative HIV tests. Procedure Name Priority Date/Time Associated Diagnosis Comments BASIC METABOLIC PANEL W/GLOMERULAR FILTRATION RATE (EGFR) Routine 12/28/2009 Hyperlipidemia Subclinical hypothyroidism Depression LIPID PANEL + CARDIAC RISK WITH REFLEX TO LDL DIRECT Routine 12/28/2009 Hyperlipidemia Subclinical hypothyroidism Depression CBC 5 PART DIFF Routine 12/28/2009 Hyperlipidemia Subclinical hypothyroidism Depression ALANINE AMINOTRANSFERASE (ALT), SERUM Routine 12/28/2009 Hyperlipidemia Subclinical hypothyroidism Depression ASPARTATE AMINOTRANSFERASE (AST), SERUM Routine 12/28/2009 Hyperlipidemia Subclinical hypothyroidism Depression TSH, THYROTROPIN Routine 12/28/2009 Hyperlipidemia Subclinical hypothyroidism Depression T4, FREE THYROXINE Routine 12/28/2009 Hyperlipidemia Subclinical hypothyroidism Depression documented in this encounter Results * Due to [place] state law, this organization might not be sharing negative HIV tests. * T4, FREE THYROXINE (12/28/2009) FT4 0.98 0.8 - 1.8 NG/DL [facility] 12/28/2009 12/28/2009 1:2 5 PM EDT Osiris Sanchez MD LABORATORY Final Result Performing Organization Address City/State/[facility] Co de Phone Number [facility] [address] [place] [address] * TSH (THYROTROPIN) (12/28/2009) TSH, THYROTROPIN 2.054 0.40 - 4.50 UIU/ML [facility] 12/28/2009 12/28/2009 1:2 5 PM EDT us Osiris Sanchez MD LABORATORY Final Result Performing Organization Address City/[facility]/ZIP Co de Phone Number [facility] [address] [place] [address] * (ABNORMAL) CBC 5 PART DIFF (12/28/2009) WHITE BLOOD COUNT 4.5 3.8 - 10.8 THOUS/UL [facility] RBC 4.41 3.80 - 5.10 MIL/UL [facility] Hemoglobin 12.9 11.7 - 15.5 G/DL [facility] HCT (HEMATOCRIT) 37.6 35.0 - 45.0 % [facility] MCV 85.2 80.0 - 100.0 FL [facility] MCH 29.3 27.0 - 33.0 PG [facility] MCHC 34.4 32.0 - 36.0 G/DL [facility] BAND % 0 0 - 5 % [facility] NEUTROPHIL % 39(L) 48 - 75 % [facility] LYMPHOCYTE % 49(H) 17 - 40 % [facility] MONOCYTE % 7 0 - 14 % [facility] EOSINOPHIL % 5 0 - 5 % [facility] BASOPHIL % 0 0 - 3 % [facility] ATYPICAL LYMPHOCYTE % 0 0 - 5 % [facility] PLATELETS 142 140 - 400 THOUS/UL [facility] BANDS # 0 0 - 750 CELLS/MCL [facility] NEUTROPHILS # 1755 1500 - 7800 CELLS/MCL [facility] LYMPHOCYTES # 2205 850 - 3900 CELLS/MCL [facility] MONOCYTES # 315 200 - 950 CELLS/MCL [facility] EOSINOPHILS # 225 15 - 550 CELLS/MCL [facility] BASOPHILS # 0 0 - 200 CELLS/MCL [facility] ATYPICAL LYMPHOCYTES # 0 0 - 200 CELLS/MCL [facility] RDW 12.9 11.0 - 15.0 % [facility] MPV 9.7 7.5 - 11.5 FL [facility] 12/28/2009 12/28/2009 1:2 5 PM EDT us Osiris Sanchez MD LAB SAME DAY RESULT Final Resul t Performing Organization Address City/[facility]/ZIP Co de Phone Number [facility] [address] [place] [address] * BASIC METABOLIC PANEL W/GLOMERULAR FILTRATION RATE (EGFR) (12/28/2009) CALCIUM 9.3 8.6 - 10.2 MG/DL [facility] BUN 8 7 - 25 MG/DL [facility] CREATININE 0.73 0.59 - 1.07 MG/DL [facility] Glucose 91 65 - 99 MG/DL [facility] SODIUM 139 135 - 146 MMOL/L [facility] POTASSIUM 3.6 3.5 - 5.3 MMOL/L [facility] CHLORIDE 103 98 - 110 MMOL/L [facility] CARBON DIOXIDE 25 21 - 33 MMOL/L [facility] GFR > 60 60 AND ABOVE [facility] Comment:UNITS: ML/MIN/1.73 S Q METERS EGFR > 60 60 AND ABOVE [facility] Comment:UNITS: ML/MIN/1.73 S Q METERS 12/28/2009 12/28/2009 1:2 5 PM EDT Narrative [facility] - 12/29/2009 2:33 AM EDT Please note that this estimated [...] with more precise needs for GFR calculation. us Osiris Sanchez MD LABORATORY Final Result Performing Organization Address [facility] Co de Phone Number [facility] [address] [place] [address] * ALANINE AMINOTRANSFERASE (ALT), SERUM (12/28/2009) ALT (SGPT) 34 6 - 40 U/L [facility] 12/28/2009 12/28/2009 1:2 5 PM EDT us Osiris Sanchez MD LAB SAME DAY RESULT Final Resul t Performing Organization Address City/[facility]/ZIP Co de Phone Number [facility] [address] [place] [address] * ASPARTATE AMINOTRANSFERASE (AST), SERUM (12/28/2009) AST (SGOT) 25 10 - 30 U/L [facility] 12/28/2009 12/28/2009 1:2 5 PM EDT Osiris Sanchez MD LAB SAME DAY RESULT Final Resul t Performing Organization Address City/[facility]/ZIP Co de Phone Number [facility] [address] [place] [address] * (ABNORMAL) LIPID PANEL + CARDIAC RISK WITH REFLEX TO LDL DIRECT (12/28/2009) CHOLESTEROL, TOTAL 237(H) 125 - 200 MG/DL [facility] TRIGLYCERIDES 195(H) 30 - 149 MG/DL [facility] HDL-CHOLESTEROL 41 40 - 77 MG/DL [facility] LDL-CHOLESTEROL 157(H) 62 - 130 MG/DL [facility] Comment: RISK CATEGORY: LDL-CHOLESTEROL GOAL CHD AND CHD RISK EQUIVALENTS: <100 MULTIPLE (2+) FACTORS: <130 ZERO TO ONE RISK FACTOR: <160 CHD RELATIVE RISK RATIO (TOTAL/HDL) 5.78(H) 0.0 - 5.0 [facility] Comment:(1.6 X AVERAGE) 12/28/2009 12/28/2009 1:2 5 PM EDT Osiris Sanchez MD LABORATORY Final Result Performing Organization Address [facility] Co de Phone Number [facility] [address] [place] [address] documented in this encounter Visit Diagnoses Diagnosis Hyperlipidemia Other and unspecified hyperlipidemia Subclinical hypothyroidism Other specified acquired hypothyroidism Depression Depressive disorder, not elsewhere classified documented in this encounter Additional Health Concerns Infection Onset Date Last Indicated Resolved Time COVID-19 Rule-Out 01/13/2020 01/13/2020 01/13/2020 2:43 PM EST COVID-19 Rule-Out 02/22/2020 02/22/2020 02/22/2020 5:30 PM EST COVID-19 Confirmed 02/22/2020 02/22/2020 1 8:12 PM EDT COVID-19 Confirmed 03/09/2021 03/09/2021 2 8:12 PM EDT documented as of this encounter Care Teams Field Operations Farm Manager Relationship Specialty Start Date End Date Osiris Sanchez MD [address] [place] [address] PCP - General 07/24/06 06/09/15 Jose Mcguire MD PCP - General Internal Medicine 06/10/15 05/19/19 Vandana Pierce MD PCP - General Family Medicine 05/20/19 08/03/20 [place] Arita MD [address] [place] [id number] PCP - General Internal Medicine 08/04/20 03/04/22 documented as of this encounter
--- OUTSIDE RECORDS SUMMARY | 2024-11-13 16:07 | XMS_ITS | Encounter Summary ---
Author Organization [employer] Address [address] [facility] 7 [place] [address] Care Team Providers Care Trimmer Sorter Name Role Phone Tee Thomas MD Primary Care Prov ider Encounter Details Date Type Department Care Team (Latest Contact Info) Description 09/15/2024 Results Follow-Up [facility] [address] [place], [place] [phone] Tee Thomas MD [address] [place] [address] CBC auto differential, Comprehensive Metabolic Panel, Lipid Panel, Standard, Additional followed-up results: 4 Social History Tobacco Use Types Packs/Day Years [...] PM EDT documented as of this encounter Plan of Treatment Not on file documented as of this encounter Visit Diagnoses Not on filedocumented in this encounter Additional Health Concerns Assessment Noted Time PHQ-9 Depression Total Score: 0 09/13/19 25 9:51 AM EDT documented as of this encounter Care Teams Trimmer Sorter Relationship Specialty Start Date End Date Tee Thomas MD [address] [place] [address] PCP - General Internal Medicine 06/25/24 documented as of this encounter
--- OUTSIDE RECORDS SUMMARY | 2024-11-13 16:07 | XMS_ITS | Encounter Summary ---
Author Organization [facility] Address [address] [place] [address] Care Team Providers Care Gear Cutting Machine Operator Name Role Phone [place] Arita MD Primary Care Provider [phone] Encounter Details Date Type Department Care Team (Late st Contact Info) Description 08/08/2021 Orders Only [facility] [address] [place] [address] Vandana Freed, KANDIS [address] [place], [place] [id number] Social History Tobacco Use Types Packs/Day Years Used Date Smoking Tobacco: Never Smokeless Tobacco: Never Alcohol Use Standard Drinks/Week Comments Yes 0 (1 standard drink = 0.6 oz pur e alcohol) socially PHQ-2 Answer Date [facility] SEVER[facility] SC[facility] (Range 0-6) 0 03/07/2021 Comments No Sex and Gender Information Value Date Recorded Sex Assigned at Female 04/12/2020 8:08 AM EST Legal Sex Female 4:49 AM EDT Gender Identity Female 11/03/2019 2:02 PM EDT Sexual Orientation Straight 04/12/2020 8: 08 AM EST 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
--- OUTSIDE RECORDS SUMMARY | 2024-11-13 16:07 | XMS_ITS | Encounter Summary ---
Author Organization [employer] Address [address] [facility] [address] [place] [address] Care Team Providers Care Scientific Programmer Name Role Phone Tee Thomas MD Primary Care Prov ider Encounter Details Date Type Department Care Team (Latest Contact Info) Description 11/13/2024 Travel Social History Tobacco Use Types Packs/Day Years [...] is your housing situation today? I have stephaniechelo montoya 09/12/[address] you [...] documented as of this encounter Care Teams Scientific Programmer Relationship Specialty Start Date End Date Tee Thomas MD [address] [place] [address] PCP - General Internal Medicine 06/25/24 documented as of this encounter
--- OUTSIDE RECORDS SUMMARY | 2024-11-13 16:07 | XMS_ITS | Encounter Summary ---
Author Organization [facility] Address [address] [place] [address] Care Team Providers Care Ship'S Electronic Warfare Officer Name Role Phone Osiris Sanchez MD Primary Care Provider [phone] Jose Mcguire MD Primary Care Provider Gela Vandana Tovar MD Primary Care Provider [phone] [place] Arita MD Primary Care Provider [phone] Reason for Visit * Reason Onset Date Comments Refill Request 12/23/2013 Encounter Details Date Type Department Care Team (Late st Contact Info) Description 12/23/2013 Refill [facility] Internal Medicine [address] [place] [phone] Osiris Sanchez MD [address] [place] [address] Refill Request Social History Tobacco Use Types [...] 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
--- OUTSIDE RECORDS SUMMARY | 2024-11-13 16:07 | XMS_ITS | Encounter Summary ---
Author Organization [facility] Address [address] [place] [address] Care Team Providers Care Craft Manager Name Role Phone Jose Mcguire MD Primary Care Provider Vandana Vazquez MD Primary Care Provider [phone] [place] Arita MD Primary Care Provider [phone] Encounter Details Date Type Department Care Team (Late st Contact Info) Description 09/15/2016 Telephone [facility] [address] [place] [address] Homa Paul MD [facility]. [address] [address] Social History Tobacco Use Types Packs/Day Years [...] encounter Miscellaneous Notes * Telephone Encounter - Lulu Silverman - 09/15/2016 8:55 AM EDT 09/15/2016 Patient has an appointment today 09/15/2016 w/ Dr Sanderson @ 9:00 am . Thank-You Lulu documented in this encounter Plan of Treatment [...] documented as of this encounter Care Teams Craft Manager Relationship Specialty Start Date End Date Jose Mcguire MD PCP - General Internal Medicine 06/10/15 05/19/19 Vandana Pierec MD PCP - General Family Medicine 05/20/19 08/03/20 [place] Arita MD [address] [place] [address] PCP - General Internal Medicine 08/04/20 03/04/22 documented as of this encounter
--- OUTSIDE RECORDS SUMMARY | 2024-11-13 16:07 | XMS_ITS | Encounter Summary ---
Author Organization [facility] Address [address] [place] [address] Care Team Providers Care Process Improvement Consultant Name Role Phone Osiris Sanchez MD Primary Care Provider [phone] Jose Mcguire MD Primary Care Provider Gela Vandana Tovar MD Primary Care Provider [phone] Norman Arita MD Primary Care Provider [phone] Encounter Details Date Type Department Care Team (Late st Contact Info) Description 11/12/2008 Orders Only [facility] [address] [place] [address] [phone] Afshin Martínez MD Social History Tobacco Use [...] 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 * Afshin Martínez MD - 11/19/2008 2:08 PM EDTQuick Note: Will send to PCP, as I did not order this lab * Patricia Lambert NP - 11/12/2008 9:12 AM EDTQuick Note: U/a noted, pt. On macrobid. documented in this encounter Plan of Treatment Not on file documented as of this encounter Procedures * Due to [place] [employer] law, this organization might not be sharing negative HIV tests. Procedure Name Priority Date/Time Associated Diagnosis Comments CULTURE, URINE STAT (All results called to provider) 11/12/2008 URINALYSIS,C&S IF INDICATED STAT (All results called to provider) 11/12/2008 UTI (Urinary Tract Infection) documented in this encounter Results * Due to [place] state law, this organization might not be sharing negative HIV tests. * CULTURE, URINE (11/12/2008) URINE CULTURE CLEAN VOID SEE TEXT [facility] Comment: SOURCE: URINE MULTIPLE ORGANISMS, EACH <10,000 CFU/ML. MAY REPRESENT NORMAL DEBI CONTAMINATION FROM EXTERNAL GENITALIA. NO FURTHER TESTING. 11/12/2008 11/12/2008 8:4 2 AM EDT us Afshin Martínez MD LABORATORY Final Result [facility] [address] [place] [address] * (ABNORMAL) URINALYSIS,C&S IF INDICATED (11/12/2008) COLOR (URINE) YELLOW YELLOW [facility] APPEARANCE (URINE) CLOUDY(A) CLEAR [facility] SPECIFIC GRAVITY 1.020 1.001 - 1.035 [facility] PH (URINE) 5.0 5.0 - 8.0 [facility] PROTEIN (URINE) 1+(A) NEG [facility] GLUCOSE (URINE) NEG NEG [facility] Ketones (Urine) NEG NEG [facility] BILIRUBIN (URINE) NEG NEG [facility] BLOOD (URINE) NEG NEG [facility] WBC (URINE) TRACE(A) NEG [facility] NITRITE (URINE) NEG NEG [facility] WBC (URINE) 0-4 0-4/HPF [facility] RBC (Urine Sed) 0 0-3/HPF [facility] EPITHELIAL CELLS.SQUAMOUS (URINE SED) 10-20(A) 0-5/HPF [facility] EPITHELIAL CELLS.TRANSITI ONAL (URINE SED) 0 0-5/HPF [facility] EPITHELIAL CELLS.RENAL (URINE SED) 0 0-3/HPF [facility] BACTERIA (URINE) FEW(A) NONE SEEN [facility] 11/12/2008 11/12/2008 8:4 2 AM EDT Afshin Martínez MD LABORATORY Final Result Performing Organization Address City/State/[facility] Co de Phone Number [facility] [address] [place] [address] documented in this encounter Visit Diagnoses Diagnosis [...] documented as of this encounter Care Teams Process Improvement Consultant Relationship Specialty Start Date End Date Osiris Sanchez MD [address] [place] [address] PCP - General 07/24/06 06/09/15 Jose Mcguire MD PCP - General Internal Medicine 06/10/15 05/19/19 Vandana Pierce MD PCP - General Family Medicine 05/20/19 08/03/20 Norman Arita MD [address] [place] [address] PCP - General Internal Medicine 08/04/20 03/04/22 documented as of this encounter
--- OUTSIDE RECORDS SUMMARY | 2024-11-13 16:07 | XMS_ITS | Encounter Summary ---
Author Organization [facility] Address [address] [place] [address] Care Team Providers Care Motor Driver Name Role Phone Osiris Sanchez MD Primary Care Provider [phone] Jose Mcguire MD Primary Care Provider Gela Vandana Tovar MD Primary Care Provider Norman Arita MD Primary Care Provider [phone] Encounter Details Date Type Department Care Team (Late st Contact Info) Description 03/18/2014 Orders Only [facility] [address] [place] [phone] Osiris Sanchez MD [address] [place] [address] Social History Tobacco Use Types Packs/Day Years [...] 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 * THYROID CASCADING REFLEX (08/17/2014 8:21 AM EDT) TSH 2.13 mIU/L [facility] Comment: {TSH {[id number]) Reference Range > or = 20 Years 0.40-4.50 Ranges First trimester 0.26-2.66 Second trimester 0.55-2.73 Third trimester 0.43-2.91 INTERPRETATION SEE NOTE [facility] Comment: {INTERPRETATION {[id number]) TSH within normal range. Consistent with euthyroid patient. Interference from heterophilic antibodies (more common) or autoantibody (less common) should be considered when the TSH value does not fit the clinical picture. TSH with HAMA Treatment (test code 48424) or TSH Antibody (test code 50420) may help identify such interferences. 08/17/2014 8:21 AM EDT 08/17/2014 11:01 AM EDT Narrative Resulting Agency Comment [id number] Osiris Sanchez MD LABORATORY Final Result Performing Organization Address City/State/[place] Co de Phone Number [facility] [address] [place] [address] * (ABNORMAL) LIPID PANEL WITH REFLEX TO DIRECT LDL (08/17/2014 8:21 AM EDT) Cholesterol 236(H) 125 - 200 mg/dL [facility] Comment:{CHOLESTEROL, TOTAL {[id number]) HDL Cholesterol 35(L) > OR = 46 mg/dL [facility] Comment:{HDL CHOLESTEROL {[id number]) Triglyceride 349(H) <150 mg/dL [facility] Comment:{TRIGLYCERIDES {[id number]) LDL Cholesterol 131(H) <130 mg/dL (calc) [facility] Comment: {LDL-CHOLESTEROL {[id number]) Desirable range <100 mg/dL for patients with CHD or diabetes and <70 mg/dL for diabetic patients with known heart disease. CHOL/HDL Ratio 6.7(H) < OR = 5.0 (calc) [facility] Comment:{CHOL/HDLC RATIO {[id number]) Cholesterol Non-HDL 201(H) mg/dL (calc) [facility] Comment: {NON HDL CHOLESTEROL {[id number]) Target for non-HDL cholesterol is 30 mg/dL higher than LDL cholesterol target. 08/17/2014 8:21 AM EDT 08/17/2014 11:01 AM EDT Narrative Resulting Agency Comment [id number] Osiris Sanchez MD LABORATORY Final Result [facility] [address] [place] [address] documented in this encounter Visit Diagnoses Diagnosis [...] documented as of this encounter Care Teams Motor Driver Relationship Specialty Start Date End Date Osiris Sanchez MD [address] [place] [address] PCP - General 07/24/06 06/09/15 Jose Mcguire MD PCP - General Internal Medicine 06/10/15 05/19/19 Vandana Pierce MD PCP - General Family Medicine 05/20/19 08/03/20 Norman Arita MD [address] [place] [address] PCP - General Internal Medicine 08/04/20 03/04/22 documented as of this encounter
--- OUTSIDE RECORDS SUMMARY | 2024-11-13 16:08 | XMS_ITS | Encounter Summary ---
Author Organization [facility] Address [address] [place] [address] Care Team Providers Care Bible Reader Name Role Phone Osiris Sanchez MD Primary Care Provider [phone] Jose Mcguire MD Primary Care Provider Gela Vandana Tovar MD Primary Care Provider [phone] Norman Arita MD Primary Care Provider [phone] Encounter Details Date Type Department Care Team (Late st Contact Info) Description 08/23/2009 Orders Only [facility] Internal Medicine [address] [place] [address] Osiris Sanchez MD [address] [place] [address] Social History Tobacco Use Types Packs/Day Years [...] 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 Will d/w patient at next appt.09/01 documented in this encounter Plan of Treatment Not on file documented as of this encounter Procedures * Due to [place] [employer] law, this organization might not be sharing negative HIV tests. Procedure Name Priority Date/Time Associated Diagnosis Comments BASIC METABOLIC PANEL W/GLOMERULAR FILTRATION RATE (EGFR) Routine 08/23/2009 MOOD DISORDER xx0.37xx LIPID PANEL + CARDIAC RISK WITH REFLEX TO LDL DIRECT Routine 08/23/2009 MOOD DISORDER xx0.37xx CBC 5 PART DIFF Routine 08/23/2009 MOOD DISORDER xx0.37xx TSH, THYROTROPIN Routine 08/23/2009 MOOD DISORDER xx0.37xx T4, FREE THYROXINE Routine 08/23/2009 MOOD DISORDER xx0.37xx documented in this encounter Results * Due to [place] state law, this organization might not be sharing negative HIV tests. * (ABNORMAL) T4, FREE THYROXINE (08/23/2009) FT4 0.78(L) 0.8 - 1.8 NG/DL [facility] 08/23/2009 08/23/2009 1:1 2 PM EDT us Osiris Sanchez MD LABORATORY Final Result [facility] [address] [place] [address] * TSH (THYROTROPIN) (08/23/2009) TSH, THYROTROPIN 2.107 0.40 - 4.50 UIU/ML [facility] 08/23/2009 08/23/2009 1:1 2 PM EDT us Osiris Sanchez MD LABORATORY Final Result Performing Organization Address [facility] de Phone Number [facility] [address] [place] [address] * (ABNORMAL) LIPID PANEL + CARDIAC RISK [...] AVERAGE) 08/23/2009 08/23/2009 1:1 2 PM EDT Osiris Sanchez MD LABORATORY Final Result Performing Organization Address [facility] de Phone Number [facility] [address] [place] [address] * BASIC METABOLIC PANEL W/GLOMERULAR FILTRATION RATE (EGFR) (08/23/2009) Pathologist [facility] CALCIUM 9.3 8.6 - 10.2 MG/DL [facility] [...] 08/23/2009 08/23/2009 1:1 2 PM EDT Narrative [facility] - 08/24/2009 2:09 AM EDT Please [...] MD LABORATORY Final Result Performing Organization Address [facility]/ZIP Co de Phone Number [facility] [address] [place] [address] * (ABNORMAL) CBC 5 PART DIFF (08/23/2009) WHITE BLOOD COUNT 4.4 3.8 - 10.8 [...] 2 PM EDT us Osiris Sanchez MD LAB SAME DAY RESULT Final Resul t Performing Organization Address City/[facility] Co de Phone Number [facility] [address] [place] [address] documented in this encounter Visit Diagnoses Diagnosis Mood Disorder (F39) documented in this encounter Additional Health Concerns Infection Onset Date Last Indicated Resolved Time COVID-19 Rule-Out 01/13/2020 01/13/2020 01/13/2020 2:43 PM EST COVID-19 Rule-Out 02/22/2020 02/22/2020 02/22/2020 5:30 PM EST COVID-19 Confirmed 02/22/2020 02/22/2020 1 8:12 PM EDT COVID-19 Confirmed 03/09/2021 03/09/2021 2 8:12 PM EDT documented as of this encounter Care Teams Bible Reader Relationship Specialty Start Date End Date Osiris Sanchez MD [address] [place] [address] PCP - General 07/24/06 06/09/15 Jose Mcguire MD PCP - General Internal Medicine 06/10/15 05/19/19 Vandana Pierce MD PCP - General Family Medicine 05/20/19 08/03/20 Norman Arita MD [address] [place] [address] PCP - General Internal Medicine 08/04/20 03/04/22 documented as of this encounter
--- OUTSIDE RECORDS SUMMARY | 2024-11-13 16:08 | XMS_ITS | Encounter Summary ---
Author Organization [facility] Address [address] [place] [address] Care Team Providers Care Cash Processor Name Role Phone Osiris Sanchez MD Primary Care Provider [phone] Jose Mcguire MD Primary Care Provider Gela Vandana Tovar MD Primary Care Provider [phone] Norman Arita MD Primary Care Provider [phone] Encounter Details Date Type Department Care Team (Late st Contact Info) Description 03/23/2010 Orders Only [facility] Internal Medicine [address] [place] [address] Osiris Sanchez MD [address] [place] [address] Social History Tobacco Use Types Packs/Day Years [...] 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 Will d/w patient at next appt.04/01 documented in this encounter Plan of Treatment Not on file documented as of this encounter Procedures * Due to [place] [employer] law, this organization might not be sharing negative HIV tests. Procedure Name Priority Date/Time Associated Diagnosis Comments LIPID PANEL + CARDIAC RISK WITH REFLEX TO LDL DIRECT Routine 03/23/2010 Lump or mass in breast ASPARTATE AMINOTRANSFERASE (AST), SERUM Routine 03/23/2010 Lump or mass in breast documented in this encounter Results * Due to [place] state law, this organization might not be sharing negative HIV tests. * ASPARTATE AMINOTRANSFERASE (AST), SERUM (03/23/2010) AST (SGOT) 22 10 - 30 U/L [facility] 03/23/2010 03/23/2010 11: 33 AM EST Osiris Sanchez MD LAB SAME DAY RESULT Final Resul t Performing Organization Address City/State/[facility] Co de Phone Number [facility] [address] [place] [address] * (ABNORMAL) LIPID PANEL + CARDIAC RISK WITH REFLEX TO LDL DIRECT (03/23/2010) CHOLESTEROL, TOTAL 233(H) 125 - 200 MG/DL [facility] TRIGLYCERIDES 307(H) 30 - 149 MG/DL [facility] HDL-CHOLESTEROL 34(L) 40 - 77 MG/DL [facility] LDL-CHOLESTEROL 138(H) 62 - 130 MG/DL [facility] Comment: RISK CATEGORY: LDL-CHOLESTEROL GOAL CHD AND CHD RISK EQUIVALENTS: <100 MULTIPLE (2+) FACTORS: <130 ZERO TO ONE RISK FACTOR: <160 CHD RELATIVE RISK RATIO (TOTAL/HDL) 6.85(H) 0.0 - 5.0 [facility] Comment:(1.9 X AVERAGE) 03/23/2010 03/23/2010 11: 33 AM EST Osiris Sanchez MD LABORATORY Final Result [facility] [address] [place] [address] documented in this encounter Visit Diagnoses Diagnosis Lump or mass in breast documented in this encounter Additional Health Concerns Infection Onset Date Last Indicated Resolved Time COVID-19 Rule-Out 01/13/2020 01/13/2020 01/13/2020 2:43 PM EST COVID-19 Rule-Out 02/22/2020 02/22/2020 02/22/2020 5:30 PM EST COVID-19 Confirmed 02/22/2020 02/22/2020 1 8:12 PM EDT COVID-19 Confirmed 03/09/2021 03/09/2021 2 8:12 PM EDT documented as of this encounter Care Teams Cash Processor Relationship Specialty Start Date End Date Osiris Sanchez MD [address] [place] [address] PCP - General 07/24/06 06/09/15 Jose Mcguire MD PCP - General Internal Medicine 06/10/15 05/19/19 Vandana Pierce MD PCP - General Family Medicine 05/20/19 08/03/20 Norman Arita MD [address] [place] [address] PCP - General Internal Medicine 08/04/20 03/04/22 documented as of this encounter
--- OUTSIDE RECORDS SUMMARY | 2024-11-13 16:08 | XMS_ITS | Encounter Summary ---
Author Organization [facility] Address [address] [place] [address] Care Team Providers Care English Language Arts Teacher Name Role Phone Osiris Sanchez MD Primary Care Provider [phone] Jose Mcguire MD Primary Care Provider Gela Vandana Tovar MD Primary Care Provider [phone] Norman Arita MD Primary Care Provider [phone] Reason for Referral * CONSULT AND TREATMENT (Routine) - Incomplete Specialty Diagnoses / Procedures Referred By Adiel tijerina Referred To Contact Pulmonary Diagnoses SOB (shortness of breath) Procedures REQUEST FOR VENTILATION PERFUSION SCAN NON-FC Tommy Saldaña MD [address] [place] [address] Phone: tel: fax: Referral ID Status Reason Start Date Expiration Date Visits Requested Visits Authorized [id number] Incomplete Specialty Services Required 5 1 1 Encounter Details Date Type Department Care Team ([facility] st Contact Info) Description 02/11/2015 Orders Only [facility] Pulmonary [address] [place] [address] [place] [address] Tommy Saldaña MD [address] [place] [id number] Social History Tobacco Use Types Packs/Day Years [...] 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 Not on file documented as of this encounter Plan of Treatment Scheduled Orders Name Type Priority Associated Diagnoses Orde r Schedule REQUEST FOR VENTILATION PERFUSION SCAN NON-FC Imaging Routine SOB (shortness of breath) Ordered: 02/11/2015 documented as of this encounter Visit Diagnoses Diagnosis SOB (shortness of breath)- Primary Shortness of breath documented in this encounter Additional Health Concerns Infection Onset Date Last Indicated Resolved Time COVID-19 Rule-Out 01/13/2020 01/13/2020 01/13/2020 2:43 PM EST COVID-19 Rule-Out 02/22/2020 02/22/2020 02/22/2020 5:30 PM EST COVID-19 Confirmed 02/22/2020 02/22/2020 1 8:12 PM EDT COVID-19 Confirmed 03/09/2021 03/09/2021 2 8:12 PM EDT documented as of this encounter Care Teams English Language Arts Teacher Relationship Specialty Start Date End Date Osiris Sanchez MD [address] [place] [address] PCP - General 07/24/06 06/09/15 Jose Mcguire MD PCP - General Internal Medicine 06/10/15 05/19/19 Vandana Pierce MD PCP - General Family Medicine 05/20/19 08/03/20 [place] [address] PCP - General Internal Medicine 08/04/20 03/04/22 documented as of this encounter
--- OUTSIDE RECORDS SUMMARY | 2024-11-13 16:08 | XMS_ITS | Encounter Summary ---
Author Organization [facility] Address [address] [place] [address] Care Team Providers Care Medical Assistant Instructor Name Role Phone Osiris Sanchez MD Primary Care Provider [phone] Jose Mcguire MD Primary Care Provider Gela Vandana Tovar MD Primary Care Provider [phone] Norman Arita MD Primary Care Provider [phone] Encounter Details Date Type Department Care Team (Late st Contact Info) Description 08/25/2010 Orders Only May Internal Medicine [address] [place] [address] Osiris Sanchez MD [address] [place] [address] Social History Tobacco Use Types Packs/Day Years [...] 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 Procedure Name Priority Date/Time Associated Diagnosis Comments BASIC METABOLIC PANEL W/GLOMERULAR FILTRATION RATE (EGFR) Routine 08/25/2010 Hyperlipidemia Hypothyroidism Depression LIPID PANEL + CARDIAC RISK WITH REFLEX TO LDL DIRECT Routine 08/25/2010 Hyperlipidemia Hypothyroidism Depression CBC 5 PART DIFF Routine 08/25/2010 Hyperlipidemia Hypothyroidism Depression ASPARTATE AMINOTRANSFERASE (AST), SERUM Routine 08/25/2010 Hyperlipidemia Hypothyroidism Depression TSH, THYROTROPIN Routine 08/25/2010 Hyperlipidemia Hypothyroidism Depression T4, FREE THYROXINE Routine 08/25/2010 Hyperlipidemia Hypothyroidism Depression documented in this encounter Results * Due to [place] state law, this organization might not be sharing negative HIV tests. * T4, FREE THYROXINE (08/25/2010) FT4 0.99 0.8 - 1.8 NG/DL [facility] 08/25/2010 08/25/2010 12: 52 PM EDT Osiris Sanchez MD LABORATORY Final Result [facility] [address] [place] [address] * TSH (THYROTROPIN) (08/25/2010) TSH, THYROTROPIN 1.851 0.40 - 4.50 UIU/ML [facility] 08/25/2010 08/25/2010 12: 52 PM EDT Osiris Sanchez MD LABORATORY Final Result [facility] [address] [place] [address] * BASIC METABOLIC PANEL W/GLOMERULAR FILTRATION RATE (EGFR) (08/25/2010) Pathologist [facility] CALCIUM 8.9 8.6 - 10.2 MG/DL [facility] BUN 9 7 - 25 MG/DL [facility] CREATININE 0.74 0.59 - 1.07 MG/DL [facility] Glucose 89 65 - 99 MG/DL [facility] SODIUM 139 135 - 146 MMOL/L [facility] POTASSIUM 3.8 3.5 - 5.3 MMOL/L [facility] CHLORIDE 103 98 - 110 MMOL/L [facility] CARBON DIOXIDE 26 21 - 33 MMOL/L [facility] GFR > 60 60 AND ABOVE [facility] Comment:UNITS: ML/MIN/1.73 S Q METERS EGFR > 60 60 AND ABOVE [facility] Comment:UNITS: ML/MIN/1.73 S Q METERS 08/25/2010 08/25/2010 12: 52 PM EDT Narrative [facility] - 08/25/2010 5:19 PM EDT Please note that this estimated [...] MD LABORATORY Final Result Performing Organization Address [facility] Co de Phone Number [facility] [address] [place] [address] * (ABNORMAL) CBC 5 PART DIFF (08/25/2010) Pathologist [facility] WHITE BLOOD COUNT 4.4 3.8 - 10.8 THOUS/UL [facility] RBC 4.38 3.80 - 5.10 MIL/UL [facility] Hemoglobin 12.7 11.7 - 15.5 G/DL [facility] HCT (HEMATOCRIT) 37.5 35.0 - 45.0 % [facility] MCV 85.7 80.0 - 100.0 FL [facility] MCH 29.0 27.0 - 33.0 PG [facility] MCHC 33.9 32.0 - 36.0 G/DL [facility] BAND % 0 0 - 5 % [facility] NEUTROPHIL % 42(L) 48 - 75 % [facility] LYMPHOCYTE % 48(H) 17 - 40 % [facility] MONOCYTE % 7 0 - 14 % [facility] EOSINOPHIL % 3 0 - 5 % [facility] BASOPHIL % 0 0 - 3 % [facility] ATYPICAL LYMPHOCYTE % 0 0 - 5 % [facility] PLATELETS 152 140 - 400 THOUS/UL [facility] BANDS # 0 0 - 750 CELLS/MCL [facility] NEUTROPHILS # 1848 1500 - 7800 CELLS/MCL [facility] LYMPHOCYTES # 2112 850 - 3900 CELLS/MCL [facility] MONOCYTES # 308 200 - 950 CELLS/MCL [facility] EOSINOPHILS # 132 15 - 550 CELLS/MCL [facility] BASOPHILS # 0 0 - 200 CELLS/MCL [facility] ATYPICAL LYMPHOCYTES # 0 0 - 200 CELLS/MCL [facility] RDW 13.7 11.0 - 15.0 % [facility] MPV 10.1 7.5 - 11.5 FL [facility] 08/25/2010 08/25/2010 12: 52 PM EDT us Osiris Sanchez MD LAB SAME DAY RESULT Final Resul t Performing Organization Address City/[facility] de Phone Number [facility] [address] [place] [address] * ASPARTATE AMINOTRANSFERASE (AST), SERUM (08/25/2010) AST (SGOT) 17 10 - 30 U/L [facility] 08/25/2010 08/25/2010 12: 52 PM EDT us Osiris Sanchez MD LAB SAME DAY RESULT Final Resul t Performing Organization Address [facility] Co de Phone Number [facility] [address] [place] [address] * (ABNORMAL) LIPID PANEL + CARDIAC RISK WITH REFLEX TO LDL DIRECT (08/25/2010) CHOLESTEROL, TOTAL 203(H) 125 - 200 MG/DL [facility] TRIGLYCERIDES 143 30 - 149 MG/DL [facility] HDL-CHOLESTEROL 36(L) 40 - 77 MG/DL [facility] LDL-CHOLESTEROL 138(H) 62 - 130 MG/DL [facility] Comment: RISK CATEGORY: LDL-CHOLESTEROL GOAL CHD AND CHD RISK EQUIVALENTS: <100 MULTIPLE (2+) FACTORS: <130 ZERO TO ONE RISK FACTOR: <160 CHD RELATIVE RISK RATIO (TOTAL/HDL) 5.64(H) 0.0 - 5.0 [facility] Comment:(1.5 X AVERAGE) 08/25/2010 08/25/2010 12: 52 PM EDT Osiris Sanchez MD LABORATORY Final Result [facility] [address] [place] [address] documented in this encounter Visit Diagnoses Diagnosis Hyperlipidemia Other and unspecified hyperlipidemia Hypothyroidism Unspecified hypothyroidism Depression Depressive disorder, not elsewhere classified documented in this encounter Additional Health Concerns Infection Onset Date Last Indicated Resolved Time COVID-19 Rule-Out 01/13/2020 01/13/2020 01/13/2020 2:43 PM EST COVID-19 Rule-Out 02/22/2020 02/22/2020 02/22/2020 5:30 PM EST COVID-19 Confirmed 02/22/2020 02/22/2020 1 8:12 PM EDT COVID-19 Confirmed 03/09/2021 03/09/2021 2 8:12 PM EDT documented as of this encounter Care Teams Medical Assistant Instructor Relationship Specialty Start Date End Date Osiris Sanchez MD [address] [place] [address] PCP - General 07/24/06 06/09/15 Jose Mcguire MD PCP - General Internal Medicine 06/10/15 05/19/19 Vandana Pierce MD PCP - General Family Medicine 05/20/19 08/03/20 Norman Arita MD [address] [place] [address] PCP - General Internal Medicine 08/04/20 03/04/22 documented as of this encounter
--- OUTSIDE RECORDS SUMMARY | 2024-11-13 16:08 | XMS_ITS | Encounter Summary ---
Author Organization [facility] Address [address] [place] [address] Care Team Providers Care Salvage Cutter Name Role Phone Osiris Sanchez MD Primary Care Provider [phone] Jose Mcguire MD Primary Care Provider Gela Vandana Tovar MD Primary Care Provider [phone] Norman Arita MD Primary Care Provider [phone] Encounter Details Date Type Department Care Team (Late st Contact Info) Description 02/14/2010 Orders Only May Internal Medicine [address] [place] [address] Osiris Sanchez MD [address] [place] [address] Social History Tobacco Use Types Packs/Day Years [...] 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 Not on file documented as of this encounter Plan of Treatment Not on file documented as of this encounter Visit Diagnoses Diagnosis Abnormal mammogram- Primary Abnormal mammogram, unspecified documented in this encounter Additional Health Concerns Infection Onset Date Last Indicated Resolved Time COVID-19 Rule-Out 01/13/2020 01/13/2020 01/13/2020 2:43 PM EST COVID-19 Rule-Out 02/22/2020 02/22/2020 02/22/2020 5:30 PM EST COVID-19 Confirmed 02/22/2020 02/22/2020 1 8:12 PM EDT COVID-19 Confirmed 03/09/2021 03/09/2021 2 8:12 PM EDT documented as of this encounter Care Teams Salvage Cutter Relationship Specialty Start Date End Date Osiris Sanchez MD [address] [place] [address] PCP - General 07/24/06 06/09/15 Jose Mcguire MD PCP - General Internal Medicine 06/10/15 05/19/19 Vandana Pierce MD PCP - General Family Medicine 05/20/19 08/03/20 Norman Arita MD [address] [place] [address] PCP - General Internal Medicine 08/04/20 03/04/22 documented as of this encounter
--- OUTSIDE RECORDS SUMMARY | 2024-11-13 16:08 | XMS_ITS | Encounter Summary ---
Author Organization [facility] Address [address] [place] [address] Care Team Providers Care Log Roller Name Role Phone Osiris Sanchez MD Primary Care Provider [phone] Jose Mcguire MD Primary Care Provider eGla Vandana Tovar MD Primary Care Provider [phone] Norman Arita MD Primary Care Provider [phone] Encounter Details Date Type Department Care Team (Late st Contact Info) Description 03/07/2011 Orders Only May Internal Medicine [address] [place] [address] Osiris Sanchez MD [address] [place] [address] Social History Tobacco Use Types Packs/Day Years [...] 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
--- OUTSIDE RECORDS SUMMARY | 2024-11-13 16:08 | XMS_ITS | Encounter Summary ---
Author Organization [facility] Address [address] [place] [address] Care Team Providers Care Cell Plasterer Name Role Phone Osiris Sanchez MD Primary Care Provider [phone] Jose Mcguire MD Primary Care Provider Gela Vandana Tovar MD Primary Care Provider [phone] Norman Arita MD Primary Care Provider [phone] Encounter Details Date Type Department Care Team (Late st Contact Info) Description 09/18/2014 Orders Only [facility] Allergy [address] [facility] [address] [place] [address] Shalom Knutson MD [address] [place] [address] Social History Tobacco Use Types Packs/Day Years [...] 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 on file documented as of this encounter Plan of Treatment Not on file documented as of this encounter Visit Diagnoses Diagnosis Allergic rhinitis, unspecified allergic rhinitis type- Primary documented in this encounter Additional Health Concerns Infection Onset Date Last Indicated Resolved Time COVID-19 Rule-Out 01/13/2020 01/13/2020 01/13/2020 2:43 PM EST COVID-19 Rule-Out 02/22/2020 02/22/2020 02/22/2020 5:30 PM EST COVID-19 Confirmed 02/22/2020 02/22/2020 1 8:12 PM EDT COVID-19 Confirmed 03/09/2021 03/09/2021 2 8:12 PM EDT documented as of this encounter Care Teams Cell Plasterer Relationship Specialty Start Date End Date Osiris Sanchez MD [address] [place] [address] PCP - General 07/24/06 06/09/15 Jose Mcguire MD PCP - General Internal Medicine 06/10/15 05/19/19 Vandana Pierce MD PCP - General Family Medicine 05/20/19 08/03/20 Norman Arita MD [address] [place] [address] PCP - General Internal Medicine 08/04/20 03/04/22 documented as of this encounter
--- OUTSIDE RECORDS SUMMARY | 2024-11-13 16:08 | XMS_ITS | Encounter Summary ---
Author Organization [facility] Address [address] [place] [address] Care Team Providers Care Leather Softener Name Role Phone Osiris Sanchez MD Primary Care Provider Jose Mcguire MD Primary Care Provider Gela Vandana Tovar MD Primary Care Provider [phone] Norman Arita MD Primary Care Provider [phone] Encounter Details Date Type Department Care Team ([facility] st Contact Info) Description 09/17/2014 Orders Only [facility] Allergy [address] [facility] [address] [place] [address] Ashok Méndez MD [address] [place] [address] Social History Tobacco Use Types Packs/Day Years [...] 

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
--- OUTSIDE RECORDS SUMMARY | 2024-11-13 16:08 | XMS_ITS | Encounter Summary ---
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 Procedure Name Priority Date/Time Associated Diagnosis Comments URINALYSIS, DIP ONLY STAT (All results called to provider) 07/22/2015 2:12 PM EDT MOOD DISORDER xx0.37xx (HCC) Hypothyroidism Suprapubic pain Flank pain Urgency-frequency syndrome CULTURE, URINE, ROUTINE Routine 07/22/2015 1:58 PM EDT MOOD DISORDER xx0.37xx (HCC) Hypothyroidism Suprapubic pain Flank pain Urgency-frequency syndrome documented in this encounter Results * Due to [place] [employer] law, this organization might not be sharing negative HIV tests. * (ABNORMAL) URINALYSIS, DIP ONLY ( SITE STAT ONLY) (07/22/2015 2:12 PM EDT) COLOR (URINE) YELLOW [facility] (CLIA# [id number]) APPEARANCE (URINE) CLEAR [facility] (CLIA# [id number]) SPECIFIC GRAVITY 1.010 1.001 - 1.035 [facility] (CLIA# [id number]) PH (URINE) 6.0 5.0 - 8.0 [facility] (CLIA# [id number]) PROTEIN (URINE) NEG Neg [facility] (CLIA# [id number]) GLUCOSE (URINE) NEG Neg [facility] (CLIA# [id number]) Ketones (Urine) NEG Neg [facility] (CLIA# [id number]) BILIRUBIN (URINE) NEG Neg [facility] (CLIA# [id number]) BLOOD (URINE) NEG Neg [facility] (CLIA# [id number]) Leukocyte esterase (Urine) NEG [facility] (CLIA# [id number]) NITRITE (URINE) NEG Neg [facility] (CLIA# [id number]) Urine specimen (specimen) 07/22/2015 2:12 PM EDT Narrative [facility] (CLIA# [id number]) - 07/22/2015 2:12 PM EDT Culture already ordered per provider. David Parr MD LAB SAME DAY RESULT Final Re sult Performing Organization Address City/[facility]/ZIP Co de Phone Number [facility] (CLIA# [id number]) [address] [place] [address] * CULTURE, URINE, ROUTINE (07/22/2015 1:58 PM EDT) Bacteria culture (Urine) SEE NOTE [facility] Comment: {CULTURE, URINE, ROUTINE {[id number]) CULTURE, URINE, ROUTINE MICRO NUMBER: [id number] TEST STATUS: FINAL SPECIMEN SOURCE: URINE SPECIMEN QUALITY: ADEQUATE RESULT: No Growth 07/22/2015 1:58 PM EDT 07/22/2015 10:31 PM EDT Narrative Resulting Agency Comment [id number] David Parr MD LABORATORY Final Result Performing Organization Address [facility] Co de Phone Number [facility] [address] [place] [address] documented in this encounter Visit Diagnoses Diagnosis MOOD DISORDER xx0.37xx (HCC) Hypothyroidism Unspecified hypothyroidism Suprapubic pain Abdominal pain, other specified site Flank pain Abdominal pain, unspecified site Urgency-frequency syndrome Hypertonicity of bladder documented in this encounter Additional Health Concerns Infection Onset Date Last Indicated Resolved Time COVID-19 Rule-Out 01/13/2020 01/13/2020 01/13/2020 2:43 PM EST COVID-19 Rule-Out 02/22/2020 02/22/2020 02/22/2020 5:30 PM EST COVID-19 Confirmed 02/22/2020 02/22/2020 1 8:12 PM EDT COVID-19 Confirmed 03/09/2021 03/09/2021 2 8:12 PM EDT documented as of this encounter Care Teams Luggage Liner Relationship Specialty Start Date End Date Jose Mcguire MD PCP - General Internal Medicine 06/10/15 05/19/19 Vandana Pierce MD PCP - General Family Medicine 05/20/19 08/03/20 Norman Arita MD [address] [place] [address] PCP - General Internal Medicine 08/04/20 03/04/22 documented as of this encounter
--- OUTSIDE RECORDS SUMMARY | 2024-11-13 16:08 | XMS_ITS | Encounter Summary ---
Author Organization [facility] Address [address] [place] [address] Care Team Providers Care Live In Companion Name Role Phone Osiris Sanchez MD Primary Care Provider [phone] Jose Mcguire MD Primary Care Provider Gela Vandana Tovar MD Primary Care Provider [phone] Norman Arita MD Primary Care Provider [phone] Reason for Visit * Reason Onset Date Comments Refill Request 08/11/2011 Encounter Details Date Type Department Care Team (Late st Contact Info) Description 08/11/2011 Refill July Internal Medicine [address] [place] [phone] Darryl Ariza MD Refill Request Social History Tobacco Use [...] 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
--- OUTSIDE RECORDS SUMMARY | 2024-11-13 16:08 | XMS_ITS | Encounter Summary ---
Author Organization [facility] Address [address] [place] [address] Care Team Providers Care Manager Regional Sales Name Role Phone Osiris Sanchez MD Primary Care Provider [phone] Jose Mcguire MD Primary Care Provider Gela Vandana Tovar MD Primary Care Provider [phone] Norman Arita MD Primary Care Provider [phone] Encounter Details Date Type Department Care Team (Late st Contact Info) Description 04/29/2009 Orders Only May Internal Medicine [address] [place] [address] Osiris Sanchez MD [address] [place] [address] Social History Tobacco Use Types Packs/Day Years [...] 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 Procedure Name Priority Date/Time Associated Diagnosis Comments BASIC METABOLIC PANEL W/GLOMERULAR FILTRATION RATE (EGFR) Routine 04/29/2009 Pre-operative examination Palpitations Salpingo-oophoritis CBC W/O DIFFERENTIAL Routine 04/29/2009 Pre-operative examination Palpitations Salpingo-oophoritis documented in this encounter Results * Due to [place] [employer] law, this organization might not be sharing negative HIV tests. * BASIC METABOLIC PANEL W/GLOMERULAR FILTRATION RATE (EGFR) (04/29/2009) CALCIUM 9.6 8.6 - 10.2 MG/DL [facility] BUN 9 7 - 25 MG/DL [facility] CREATININE 0.72 0.59 - 1.07 MG/DL [facility] Glucose 82 65 - 99 MG/DL [facility] SODIUM 140 135 - 146 MMOL/L [facility] POTASSIUM 3.8 3.5 - 5.3 MMOL/L [facility] CHLORIDE 100 98 - 110 MMOL/L [facility] CARBON DIOXIDE 26 21 - 33 MMOL/L [facility] GFR > 60 60 AND ABOVE [facility] Comment:UNITS: ML/MIN/1.73 S Q METERS EGFR > 60 60 AND ABOVE [facility] Comment:UNITS: ML/MIN/1.73 S Q METERS 04/29/2009 04/29/2009 7:5 5 PM EST Narrative [facility] - 04/30/2009 2:43 AM EST Please note that this estimated [...] MD LABORATORY Final Result [facility] [address] [place] [address] * CBC W/O DIFFERENTIAL (04/29/2009) WHITE BLOOD COUNT 5.3 3.8 - 10.8 THOUS/UL [facility] RBC 4.51 3.80 - 5.10 MIL/UL [facility] Hemoglobin 13.1 11.7 - 15.5 G/DL [facility] HCT (HEMATOCRIT) 38.0 35.0 - 45.0 % [facility] MCV 84.3 80.0 - 100.0 FL [facility] MCH 29.1 27.0 - 33.0 PG [facility] MCHC 34.6 32.0 - 36.0 G/DL [facility] PLATELETS 155 140 - 400 THOUS/UL [facility] RDW 13.0 11.0 - 15.0 % [facility] MPV 9.5 7.5 - 11.5 FL [facility] 04/29/2009 04/29/2009 7:5 5 PM EST us Osiris Sanchez MD LAB SAME DAY RESULT Final Resul t Performing Organization Address City/State/[facility] Co de Phone Number [facility] [address] [place] [address] documented in this encounter Visit Diagnoses Diagnosis Pre-operative examination Preoperative examination, unspecified Palpitations Salpingitis and oophoritis not specified as acute, subacute, or chronic documented in this encounter Additional Health Concerns Infection Onset Date Last Indicated Resolved Time COVID-19 Rule-Out 01/13/2020 01/13/2020 01/13/2020 2:43 PM EST COVID-19 Rule-Out 02/22/2020 02/22/2020 02/22/2020 5:30 PM EST COVID-19 Confirmed 02/22/2020 02/22/2020 1 8:12 PM EDT COVID-19 Confirmed 03/09/2021 03/09/2021 2 8:12 PM EDT documented as of this encounter Care Teams Manager Regional Sales Relationship Specialty Start Date End Date Osiris Sanchez MD [address] [place] [address] PCP - General 07/24/06 06/09/15 Jose Mcguire MD PCP - General Internal Medicine 06/10/15 05/19/19 Vandana Pierce MD PCP - General Family Medicine 05/20/19 08/03/20 Norman Arita MD [address] [place] [address] PCP - General Internal Medicine 08/04/20 03/04/22 documented as of this encounter
--- OUTSIDE RECORDS SUMMARY | 2024-11-13 16:08 | XMS_ITS | Encounter Summary ---
Author Organization [facility] Address [address] [place] [address] Care Team Providers Care Hyperion Essbase Developer Name Role Phone Osiris Sanchez MD Primary Care Provider [phone] Jose Mcguire MD Primary Care Provider Gela Vandana Tovar MD Primary Care Provider [phone] Norman Arita MD Primary Care Provider Encounter Details Date Type Department Care Team ([facility] st Contact Info) Description 02/10/2015 Orders Only [facility] Pulmonary [address] [facility] [address] [place] [address] Tommy Saldaña MD [address] [place] [address] Social History Tobacco Use Types Packs/Day Years [...] 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 documented in this encounter Plan of Treatment Not on file documented as of this encounter Procedures * Due to [place] [employer] law, this organization might not be sharing negative HIV tests. Procedure Name Priority Date/Time Associated Diagnosis Comments D-DIMER, QUANTITATIVE STAT (All results called to provider) 02/10/2015 5:12 PM EST Hypersomnia Other seasonal allergic rhinitis SOB (shortness of breath) Lung nodules IRON PROFILE (IRON/TIBC), SERUM Routine 02/10/2015 5:12 PM EST Hypersomnia Other seasonal allergic rhinitis SOB (shortness of breath) Lung nodules VITAMIN D, 25-HYDROXY, TOTAL, IMMUNOASSAY Routine 02/10/2015 5:12 PM EST Hypersomnia Other seasonal allergic rhinitis SOB (shortness of breath) Lung nodules documented in this encounter Results * Due to [place] [employer] law, this organization might not be sharing negative HIV tests. * (ABNORMAL) VITAMIN D, 25-HYDROXY, TOTAL, IMMUNOASSAY (02/10/2015 5:12 PM EST) Vitamin D, 25-OH, Total 14(L) 30 - 100 ng/mL [facility] Comment: {VITAMIN D,25-OH,TOTAL,IA {[id number]) Vitamin D Status 25-OH Vitamin D: Deficiency: <20 ng/mL Insufficiency: 20 - 29 ng/mL Optimal: > or = 30 ng/mL For 25-OH Vitamin D testing on patients on D2-supplementation and patients for whom quantitation of D2 and D3 fractions is required, the QuestAssureD(TM) 25-OH VIT D, (D2,D3), LC/MS/MS is recommended: order code [id number] (patients >2yrs). For more information on this test, go to: http://[employer]/faq/EBP748 (This link is being provided for informational/educational purposes only.) 02/10/2015 5:12 PM EST 02/10/2015 6:26 PM EST Narrative Resulting Agency Comment [id number] Tommy Saldaña MD LABORATORY Final Result Performing Organization Address [facility] de Phone Number [facility] [address] [place] [address] * (ABNORMAL) D-DIMER, QUANTITATIVE (02/10/2015 5:12 PM EST) Fibrin D-dimer FEU (Platelet Poor Plasma) 0.88(H) <0.50 mcg/mL FEU [facility] Comment: {D-DIMER, QUANTITATIVE {[id number]) Verified by repeat analysis. The D-Dimer test is used frequently to exclude an acute PE or DVT. In patients with a low to moderate clinical risk assessment and a D-Dimer result <0.50 mcg/mL FEU, the likelihood of a PE or DVT is very low. However, a thromboembolic event should not be excluded solely on the basis of the D-Dimer level. Increased levels of D-Dimer are associated with a PE, DVT, DIC, malignancies, inflammation, sepsis, surgery, trauma, , and advancing patient age. [Brian 2006 11:295(2):199-207] For additional information, please refer to: http://[employer]/faq/NLU988 (This link is being provided for informational/ educational purposes only) 02/10/2015 5:12 PM EST 02/10/2015 6:26 PM EST Narrative Resulting Agency Comment [id number] Tommy Saldaña MD LAB SAME DAY RESULT Final Res ult Performing Organization Address [facility] Co de Phone Number [facility] [address] [place] [address] * IRON PROFILE (IRON/TIBC), SERUM (02/10/2015 5:12 PM EST) Iron 76 40 - 190 mcg/dL [facility] Comment:{IRON, TOTAL {[id number]) Iron binding capacity 365 250 - 450 mcg/dL [facility] Comment:{IRON BINDING CAPACI TY {[id number]) Iron saturation 21 11 - 50 % (calc) [facility] Comment:{% SATURATION {[id number]) 02/10/2015 5:12 PM EST 02/10/2015 6:26 PM EST Narrative Resulting Agency Comment [id number] Tommy Saldaña MD LABORATORY Final Result [facility] [address] [place] [address] documented in this encounter Visit Diagnoses Diagnosis Hypersomnia Hypersomnia, unspecified Other seasonal allergic rhinitis SOB (shortness of breath) Shortness of breath Lung nodules Other nonspecific abnormal finding of lung field documented in this encounter Additional Health Concerns Infection Onset Date Last Indicated Resolved Time COVID-19 Rule-Out 01/13/2020 01/13/2020 01/13/2020 2:43 PM EST COVID-19 Rule-Out 02/22/2020 02/22/2020 02/22/2020 5:30 PM EST COVID-19 Confirmed 02/22/2020 02/22/2020 1 8:12 PM EDT COVID-19 Confirmed 03/09/2021 03/09/2021 2 8:12 PM EDT documented as of this encounter Care Teams Hyperion Essbase Developer Relationship Specialty Start Date End Date Osiris Sanchez MD [address] [place] [address] PCP - General 07/24/06 06/09/15 Jose Mcguire MD PCP - General Internal Medicine 06/10/15 05/19/19 Vandana Pierce MD PCP - General Family Medicine 05/20/19 08/03/20 Norman Arita MD [address] [place] [address] PCP - General Internal Medicine 08/04/20 03/04/22 documented as of this encounter
--- OUTSIDE RECORDS SUMMARY | 2024-11-13 16:08 | XMS_ITS | Encounter Summary ---
Author Organization [facility] Address [address] [place] [address] Care Team Providers Care Education Spec Name Role Phone Osiris Sanchez MD Primary Care Provider [phone] Jose Mcguire MD Primary Care Provider Gela Vandana Tovar MD Primary Care Provider [phone] Norman Arita MD Primary Care Provider [phone] Encounter Details Date Type Department Care Team (Late st Contact Info) Description 06/08/2015 Orders Only May Internal Medicine [address] [place] [address] Osiris Sanchez MD [address] [place] [address] Social History Tobacco Use Types Packs/Day Years [...] 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
--- OUTSIDE RECORDS SUMMARY | 2024-11-13 16:08 | XMS_ITS | Encounter Summary ---
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 Procedure Name Priority Date/Time Associated Diagnosis Comments TSH, 3RD GENERATION Routine 08/16/2015 8 :19 AM EDT Disorder of thyroid LIPID PANEL WITH REFLEX TO DIRECT LDL Routine 08/16/2015 8:19 AM EDT Lipids blood increased documented in this encounter Results * Due to [place] [employer] law, this organization might not be sharing negative HIV tests. * TSH, 3RD GENERATION (08/16/2015 8:19 AM EDT) TSH 1.25 mIU/L [facility] Comment: {TSH {[id number]) Reference Range > or = 20 Years 0.40-4.50 Ranges First trimester 0.26-2.66 Second trimester 0.55-2.73 Third trimester 0.43-2.91 08/16/2015 8:19 AM EDT 08/16/2015 12:52 PM EDT Narrative Resulting Agency Comment [id number] Osiris Sanchez MD LABORATORY Final Result Performing Organization Address City/State/[facility] Co de Phone Number [facility] [address] [place] [address] * (ABNORMAL) LIPID PANEL WITH REFLEX TO DIRECT LDL (08/16/2015 8:19 AM EDT) Cholesterol 227(H) 125 - 200 mg/dL [facility] Comment:{CHOLESTEROL, TOTAL {[id number]) HDL Cholesterol 32(L) > OR = 46 mg/dL [facility] Comment:{HDL CHOLESTEROL {[id number]) Triglyceride 402(H) <150 mg/dL [facility] Comment:{TRIGLYCERIDES {[id number]) LDL Cholesterol SEE NOTE <130 mg/dL (calc) [facility] Comment: {LDL-CHOLESTEROL {[id number]) LDL cholesterol not calculated. Triglyceride levels greater than 400 mg/dL invalidate calculated LDL results. Desirable range <100 mg/dL for patients with CHD or diabetes and <70 mg/dL for diabetic patients with known heart disease. CHOL/HDL Ratio 7.1(H) < OR = 5.0 (calc) [facility] Comment:{CHOL/HDLC RATIO {[id number]) Cholesterol Non-HDL 195(H) mg/dL (calc) [facility] Comment: {NON HDL CHOLESTEROL {[id number]) Target for non-HDL cholesterol is 30 mg/dL higher than LDL cholesterol target. LDL, Direct Measure 108 <130 mg/dL [facility] Comment: {DIRECT LDL {[id number]) Desirable range <100 mg/dL for patients with CHD or diabetes and <70 mg/dL for diabetic patients with known heart disease. 08/16/2015 8:19 AM EDT 08/16/2015 12:52 PM EDT Narrative Resulting Agency Comment [id number] Osiris Sanchez MD LABORATORY Final Result Performing Organization Address City/State/[facility] Co de Phone Number [facility] [address] [place] [address] documented in this encounter Visit Diagnoses Diagnosis Lipids blood increased Other and unspecified hyperlipidemia Disorder of thyroid [...] documented as of this encounter Care Teams Chief Meter Reader Relationship Specialty Start Date End Date Jose Mcguire MD PCP - General Internal Medicine 06/10/15 05/19/19 Vandana Pierce MD PCP - General Family Medicine 05/20/19 08/03/20 Norman Arita MD [address] [place] [address] PCP - General Internal Medicine 08/04/20 03/04/22 documented as of this encounter
--- OUTSIDE RECORDS SUMMARY | 2024-11-13 16:08 | XMS_ITS | Encounter Summary ---
Author Organization [facility] Address [address] [place] [address] Care Team Providers Care Ornamental Metal Worker Helper Name Role Phone Jose Mcguire MD Primary Care Provider Gela Vandana Tovar MD Primary Care Provider [phone] Norman Arita MD Primary Care Provider [phone] Encounter Details Date Type Department Care Team (Late Contact Info) Description 03/29/2016 Orders Only July Internal Medicine [address] [place] [address] Jose Mcguire MD Social History Tobacco Use [...] this encounter Procedures * Due to [place] state law, this organization might not be sharing negative HIV tests. Procedure Name Priority Date/Time Associated Diagnosis Comments CBC INCLUDES DIFFERENTIAL AND PLATELET COUNT Routine 03/29/2016 11:48 AM EST Hyperlipidemia, unspecified hyperlipidemia type THYROID CASCADING REFLEX Routine 03/29/2016 11:48 AM EST Hyperlipidemia, unspecified hyperlipidemia type HEMOGLOBIN A1C Routine 03/29/2016 11:48 AM EST Hyperlipidemia, unspecified hyperlipidemia type BASIC METABOLIC PANEL WITH (GFR) Routine 03/29/2016 11:48 AM EST Hyperlipidemia, unspecified hyperlipidemia type documented in this encounter Results * Due to [place] state law, this organization might not be sharing negative HIV tests. * (ABNORMAL) HEMOGLOBIN A1C (03/29/2016 11:48 AM EST) Hemoglobin A1C 5.8(H) <5.7 % of total Hgb [facility] Comment: According to ADA guidelines, hemoglobin A1c <7.0% represents optimal control in non- diabetic patients. Different metrics may apply to specific patient populations. Standards of Medical Care in Diabetes-2013. Diabetes Care. 2013;36:s11-s66 For the purpose of screening for the presence of diabetes <5.7% Consistent with the absence of diabetes 5.7-6.4% Consistent with increased risk for diabetes (prediabetes) >or=6.5% Consistent with diabetes This assay result is consistent with an increased risk of diabetes. Currently, no consensus exists for use of hemoglobin A1c for diagnosis of diabetes for children. Estimated Average Glucose 129 mg/dL (calc) [facility] 03/29/2016 11:4 8 AM EST 03/29/2016 5:50 PM EST Narrative Resulting Agency Comment [id number] Jose Mcguire MD LABORATORY Final Result [facility] [address] [place] [address] * THYROID CASCADING REFLEX (03/29/2016 11:48 AM EST) TSH 1.62 mIU/L [facility] Comment: Reference Range > or = 20 Years 0.40-4.50 Ranges First trimester 0.26-2.66 Second trimester 0.55-2.73 Third trimester 0.43-2.91 INTERPRETATION SEE NOTE [facility] Comment: TSH within normal range. Consistent with euthyroid patient. Interference from heterophilic antibodies (more common) or autoantibody (less common) should be considered when the TSH value does not fit the clinical picture. TSH with HAMA Treatment (test code 97524) or TSH Antibody (test code 86581) may help identify such interferences. 03/29/2016 11:4 8 AM EST 03/29/2016 5:50 PM EST Narrative Resulting Agency Comment [id number] Jose Mcguire MD LABORATORY Final Result [facility] [address] [place] [address] * BASIC METABOLIC PANEL WITH (GFR) (03/29/2016 11:48 AM EST) Pathologist [facility] Glucose 99 65 - 99 mg/dL [facility] Comment:Fasting reference in terval Urea Nitrogen Blood (BUN) 10 7 - 25 mg/dL [facility] Creatinine 0.74 0.50 - 1.10 mg/dL [facility] GFR 97 > OR = 60 mL/min/1. 73m2 [facility] GFR () 113 > OR = 60 mL/min/1. 73m2 [facility] BUN/Creatinine Ratio NOT APPLICABLE 6 - 22 (calc) [facility] Sodium 141 135 - 146 mmol/L [facility] Potassium 3.9 3.5 - 5.3 mmol/L [facility] Chloride 105 98 - 110 mmol/L [facility] Carbon dioxide 29 20 - 31 mmol/L [facility] Calcium 9.6 8.6 - 10.2 mg/dL [facility] 03/29/2016 11:4 8 AM EST 03/29/2016 5:50 PM EST Narrative [facility] - 03/30/2016 12:25 AM EST Please note that this estimated [...] needs for GFR calculation. Resulting Agency Comment [id number] Jose Mcguire MD LABORATORY Final Result Performing Organization Address [facility] Co de Phone Number [facility] [address] [place] [address] * CBC INCLUDES DIFFERENTIAL AND PLATELET COUNT (03/29/2016 11:48 AM EST) WBC 5.3 3.8 - 10.8 Thousand/u L [facility] RBC 4.86 3.80 - 5.10 Million/uL [facility] Hemoglobin 13.3 11.7 - 15.5 g/dL [facility] Hematocrit 39.7 35.0 - 45.0 % [facility] MCV 81.7 80.0 - 100.0 fL [facility] MCH 27.4 27.0 - 33.0 pg [facility] MCHC 33.5 32.0 - 36.0 g/dL [facility] RDW 13.9 11.0 - 15.0 % [facility] PLT 166 140 - 400 Thousand/u L [facility] MPV 9.7 7.5 - 12.5 fL [facility] Neutrophils # 2343 1500 - 7800 cells/uL [facility] Lymphocytes # 2242 850 - 3900 cells/uL [facility] Monocytes # 413 200 - 950 cells/uL [facility] Eosinophils # 270 15 - 500 cells/uL [facility] Basophils # 32 0 - 200 cells/uL [facility] Neutrophils % 44.2 % [facility] Lymphocytes % 42.3 % [facility] Monocytes % 7.8 % [facility] Eosinophils % 5.1 % [facility] Basophils % 0.6 % [facility] 03/29/2016 11:4 8 AM EST 03/29/2016 5:50 PM EST Narrative Resulting Agency Comment [id number] Jose Mcguire MD LAB SAME DAY RESULT Final Resul t Performing Organization Address [facility] Co de Phone Number [facility] [address] [place] [address] documented in this encounter Visit Diagnoses Diagnosis [...] documented as of this encounter Care Teams Ornamental Metal Worker Helper Relationship Specialty Start Date End Date Jose Mcguire MD PCP - General Internal Medicine 06/10/15 05/19/19 Vandana Pierce MD PCP - General Family Medicine 05/20/19 08/03/20 Norman Arita MD [address] [facility] [address] PCP - General Internal Medicine 08/04/20 03/04/22 documented as of this encounter
--- OUTSIDE RECORDS SUMMARY | 2024-11-13 16:08 | XMS_ITS | Encounter Summary ---
Author Organization [facility] Address [address] [place] [address] Care Team Providers Care Glaze Grinder Name Role Phone Osiris Sanchez MD Primary Care Provider [phone] Jose Mcguire MD Primary Care Provider Gela Vandana Tovar MD Primary Care Provider [phone] Norman Arita MD Primary Care Provider [phone] Encounter Details Date Type Department Care Team (Late st Contact Info) Description 05/24/2009 Orders Only [facility] [address] [place] [address] Osiris Sanchez MD [address] [place] [address] Social History Tobacco Use Types Packs/Day Years [...] 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 Procedure Name Priority Date/Time Associated Diagnosis Comments TSH, THYROTROPIN Routine 05/24/2009 Palpitations T4, FREE THYROXINE Routine 05/24/2009 Palpitations documented in this encounter Results * Due to [place] law, this organization might not be sharing negative HIV tests. * TSH (THYROTROPIN) (05/24/2009) TSH, THYROTROPIN 2.604 0.40 - 4.50 UIU/ML [facility] 05/24/2009 05/24/2009 2:3 1 PM EDT Osiris Sanchez MD LABORATORY Final Result Performing Organization Address [facility] Co de Phone Number [facility] [address] [place] [address] * (ABNORMAL) T4, FREE THYROXINE (05/24/2009) FT4 0.78(L) 0.8 - 1.8 NG/DL [facility] 05/24/2009 05/24/2009 2:3 1 PM EDT Osiris Sanchez MD LABORATORY Final Result Performing Organization Address [facility]/ZIP Co de Phone Number [facility] [address] [place] [address] documented in this encounter Visit Diagnoses Diagnosis Palpitations documented in this encounter Additional Health Concerns Infection Onset Date Last Indicated Resolved Time COVID-19 Rule-Out 01/13/2020 01/13/2020 01/13/2020 2:43 PM EST COVID-19 Rule-Out 02/22/2020 02/22/2020 02/22/2020 5:30 PM EST COVID-19 Confirmed 02/22/2020 02/22/2020 1 8:12 PM EDT COVID-19 Confirmed 03/09/2021 03/09/2021 2 8:12 PM EDT documented as of this encounter Care Teams Glaze Grinder Relationship Specialty Start Date End Date Osiris Sanchez MD [address] [place] [address] PCP - General 07/24/06 06/09/15 Jose Mcguire MD PCP - General Internal Medicine 06/10/15 05/19/19 Vandana Pierce MD PCP - General Family Medicine 05/20/19 08/03/20 Norman Arita MD [address] [place] [address] PCP - General Internal Medicine 08/04/20 03/04/22 documented as of this encounter
--- OUTSIDE RECORDS SUMMARY | 2024-11-13 16:08 | XMS_ITS | Encounter Summary ---
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 Yes 03/08/2020 7:28 AM EST documented as of this encounter Progress Notes * Toshia Avina - 03/08/2020 7:32 AM EST mychart sent. documented in this encounter Plan of Treatment Not on file documented as of this encounter Procedures * Due to [place] [employer] law, this organization might not be sharing negative HIV tests. Procedure Name Priority Date/Time Associated Diagnosis Comments VENIPUNCTURE Routine 03/08/2020 7:32 AM EST Hypothyroidism documented in this encounter Results * Due to [place] [employer] law, this organization might not be sharing negative HIV tests. * THYROID STIMULATING HORMONE (TSH) WITH FREE T4 REFLEX, SERUM (03/08/2020 7:32 AM EST) TSH 1.24 mIU/L [facility] Comment: Reference Range > or = 20 Years 0.40-4.50 Ranges First trimester 0.26-2.66 Second trimester 0.55-2.73 Third trimester 0.43-2.91 03/08/2020 7:32 AM EST 03/08/2020 8:44 AM EST Narrative Resulting Agency Comment [id number] Vandana Pierce MD LABORATORY Final Result Performing Organization Address City/State/[facility] Co de Phone Number [facility] [address] [place] [address] documented in this encounter Visit Diagnoses Diagnosis Hypothyroidism Unspecified hypothyroidism documented in this encounter Additional Health Concerns Infection Onset Date Last Indicated Resolved Time COVID-19 Confirmed 02/22/2020 02/22/2020 1 8:12 PM EDT COVID-19 Confirmed 03/09/2021 03/09/2021 2 8:12 PM EDT documented as of this encounter Care Teams Creative Manager Relationship Specialty Start Date End Date Vandana Pierce MD PCP - General Family Medicine 05/20/19 08/03/20 Norman Arita MD [address] [place] [address] PCP - General Internal Medicine 08/04/20 03/04/22 documented as of this encounter
--- OUTSIDE RECORDS SUMMARY | 2024-11-13 16:08 | XMS_ITS | Encounter Summary ---
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 Procedure Name Priority Date/Time Associated Diagnosis Comments CULTURE, GENITAL Routine 04/13/2011 5:08 PM EST Itch documented in this encounter Results * Due to [place] law, this organization might not be sharing negative HIV tests. * CULTURE, GENITAL (04/13/2011 5:08 PM EST) Bacteria culture (Genital) SEE NOTE [facility] Comment: {CULTURE, GENITAL {[id number]) CULTURE, GENITAL MICRO NUMBER: [id number] TEST STATUS: FINAL SPECIMEN SOURCE: NOT GIVEN SPECIMEN QUALITY: ADEQUATE RESULT: Heavy growth of Yeast isolated. Please contact the laboratory within 3 days if further identification is desired. COMMENT: Normal urogenital azar also present. 04/13/2011 5:08 PM EST 04/13/2011 10:42 PM EST Narrative Resulting Agency Comment [id number] Yoli Anderson MD LABORATORY Final Resul t Performing Organization Address City/State/[facility] Co de Phone Number [facility] [address] [place] [address] documented in this encounter Visit Diagnoses Diagnosis Itch Unspecified pruritic disorder documented in this encounter Additional Health Concerns Infection Onset Date Last Indicated Resolved Time COVID-19 Rule-Out 01/13/2020 01/13/2020 01/13/2020 2:43 PM EST COVID-19 Rule-Out 02/22/2020 02/22/2020 02/22/2020 5:30 PM EST COVID-19 Confirmed 02/22/2020 02/22/2020 1 8:12 PM EDT COVID-19 Confirmed 03/09/2021 03/09/2021 2 8:12 PM EDT documented as of this encounter Care Teams Client Care Coordinator Relationship Specialty Start Date End Date Osiris Sanchez MD [address] [place] [address] PCP - General 07/24/06 06/09/15 Jose Mcguire MD PCP - General Internal Medicine 06/10/15 05/19/19 Vandana Pierce MD PCP - General Family Medicine 05/20/19 08/03/20 Norman Arita MD [address] [place] [address] PCP - General Internal Medicine 08/04/20 03/04/22 documented as of this encounter
--- OUTSIDE RECORDS SUMMARY | 2024-11-13 16:08 | XMS_ITS | Encounter Summary ---
Author Organization [facility] Address [address] [place] [address] Care Team Providers Care Dramatic Director Name Role Phone Jose Mcguire MD Primary Care Provider Gela Vandana Tovar MD Primary Care Provider [phone] Norman Arita MD Primary Care Provider [phone] Encounter Details Date Type Department Care Team (Late Contact Info) Description 12/13/2015 Orders Only [facility] [address] [place] [address] Jose Mcguire MD Social History Tobacco Use [...] this encounter Procedures * Due to [place] state law, this organization might not be sharing negative HIV tests. Procedure Name Priority Date/Time Associated Diagnosis Comments URINALYSIS, DIP ONLY STAT (All results called to provider) 12/13/2015 9:58 AM EDT Urinary tract infection, site unspecified CULTURE, URINE, ROUTINE Routine 12/13/2015 9:47 AM EDT Urinary tract infection, site unspecified URINALYSIS, MICROSCOPIC Routine 12/13/2015 9:47 AM EDT Urinary tract infection, site unspecified documented in this encounter Results * Due to [place] state law, this organization might not be sharing negative HIV tests. * URINALYSIS, DIP ONLY ( SITE STAT ONLY) (12/13/2015 9:58 AM EDT) COLOR (URINE) YELLOW [facility] (CLIA# [id number]) APPEARANCE (URINE) CLEAR [facility] (CLIA# [id number]) SPECIFIC GRAVITY 1.005 1.001 - 1.035 [facility] (CLIA# [id number]) PH (URINE) 7.0 5.0 - 8.0 [facility] (CLIA# [id number]) PROTEIN (URINE) NEGATIVE Neg [facility] (CLIA# [id number]) GLUCOSE (URINE) NEGATIVE Neg [facility] (CLIA# [id number]) Ketones (Urine) NEGATIVE Neg [facility] (CLIA# [id number]) BILIRUBIN (URINE) NEGATIVE Neg [facility] (CLIA# [id number]) BLOOD (URINE) NEGATIVE Neg [facility] (CLIA# [id number]) Leukocyte esterase (Urine) NEGATIVE [facility] (CLIA# [id number]) NITRITE (URINE) NEGATIVE Neg [facility] (CLIA# [id number]) Urine specimen (specimen) 12/13/2015 9:58 AM EDT Narrative [facility] (CLIA# [id number]) - 12/13/2015 10:00 AM EDT Micro and culture already ordered per provider. Jose Mcguire MD LAB SAME DAY RESULT Final Resul t [facility] (CLIA# [id number]) [address] [place] [address] * (ABNORMAL) CULTURE, URINE, ROUTINE (12/13/2015 9:47 AM EDT) Bacteria culture (Urine) SEE NOTE(A) [facility] Comment: {CULTURE, URINE, ROUTINE {[id number]) CULTURE, URINE, ROUTINE MICRO NUMBER: [id number] TEST STATUS: FINAL SPECIMEN SOURCE: URINE, CLEAN CATCH SPECIMEN QUALITY: ADEQUATE RESULT: 10,000-50,000 CFU/mL of Lactobacillus species May represent colonizers from external and internal genitalia. No further testing (including susceptibility) will be performed. 12/13/2015 9:47 AM EDT 12/13/2015 4:39 PM EDT Narrative Resulting Agency Comment [id number] Jose Mcguire MD LABORATORY Final Result Performing Organization Address City/[facility]/ZIP Co de Phone Number [facility] [address] [place] [address] * URINALYSIS, MICROSCOPIC (12/13/2015 9:47 AM EDT) WBC (Urine) NONE SEEN < OR = 5 /HPF [facility] Comment:{WBC {[id number]) RBC (Urine Sed) NONE SEEN < OR = 2 /HPF [facility] Comment:{RBC {[id number]) Epithelial cells.squamous (Urine sed) NONE SEEN < OR = 5 /HPF [facility] Comment:{SQUAMOUS EPITHELIAL CELLS {[id number]) Bacteria (Urine) NONE SEEN NONE SEEN /HPF [facility] Comment:{BACTERIA {[id number]) Hyaline casts (Urine sed) NONE SEEN NONE SEEN /LPF [facility] Comment:{HYALINE CAST {[id number]) 12/13/2015 9:47 AM EDT 12/13/2015 4:39 PM EDT Narrative Resulting Agency Comment [id number] Jose Mcguire MD LAB SAME DAY RESULT Final Resul t [facility] [address] [place] [address] documented in this encounter Visit Diagnoses Diagnosis Urinary tract infection, site unspecified documented in this encounter Additional Health Concerns Infection Onset Date Last Indicated Resolved Time COVID-19 Rule-Out 01/13/2020 01/13/2020 01/13/2020 2:43 PM EST COVID-19 Rule-Out 02/22/2020 02/22/2020 02/22/2020 5:30 PM EST COVID-19 Confirmed 02/22/2020 02/22/2020 1 8:12 PM EDT COVID-19 Confirmed 03/09/2021 03/09/2021 2 8:12 PM EDT documented as of this encounter Care Teams Dramatic Director Relationship Specialty Start Date End Date Jose Mcguire MD PCP - General Internal Medicine 06/10/15 05/19/19 Vandana Pierce MD PCP - General Family Medicine 05/20/19 08/03/20 Norman Arita MD [address] [place] [address] PCP - General Internal Medicine 08/04/20 03/04/22 documented as of this encounter
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
--- OUTSIDE RECORDS SUMMARY | 2024-11-13 16:08 | XMS_ITS | Encounter Summary ---
Author Organization [facility] Address [address] [place] [id number] Care Team Providers Care Weapons And Tactics Instructor Name Role Phone Vandana Pierce MD Primary Care Provider [phone] Norman Arita MD Primary Care Provider [phone] Reason for Visit * Reason Comments Appointment Encounter Details Date Type Department Care Team (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 No / Unsure 04/16/2020 12:51 PM EST documented as of this encounter Miscellaneous Notes * Telephone Encounter - Drea Fajardo - 04/13/2020 11:59 AM EST LMOM for pt to call and schedule Return in about 1 month (around 05/10/2020) for f/u insomnia, video visit. Letter sent and message to my chart documented in this encounter Plan of Treatment Not on file documented as of this encounter Visit Diagnoses Not on filedocumented in this encounter Additional Health Concerns Infection Onset Date Last Indicated Resolved Time COVID-19 Confirmed 02/22/2020 02/22/2020 1 8:12 PM EDT COVID-19 Confirmed 03/09/2021 03/09/2021 2 8:12 PM EDT documented as of this encounter Care Teams Weapons And Tactics Instructor Relationship Specialty Start Date End Date Vandana Pierce MD PCP - General Family Medicine 05/20/19 08/03/20 Norman Arita MD [address] [place] [address] PCP - General Internal Medicine 08/04/20 03/04/22 documented as of this encounter
--- OUTSIDE RECORDS SUMMARY | 2024-11-13 16:08 | XMS_ITS | Encounter Summary ---
Author Organization [facility] Address [address] [place] [address] Care Team Providers Care Chute Operator Name Role Phone Jose Mcguire MD Primary Care Provider Vandana Vazquez MD Primary Care Provider [phone] Norman Arita MD Primary Care Provider Reason for Visit * Reason Comments Cough Encounter Details Date Type Department Care Team ([facility] Contact Info) Description 05/08/2016 Telephone [facility] [address] [place] [id number] Jose Mcguire MD Cough Social History Tobacco Use Types Packs/Day Years [...] * Telephone Encounter - Kiki France - 05/26/2016 8:39 AM EDT Pt calling back and feels her cough is not getting any better. Pt finished cough syrup and has , using vaporizer, cough drops , and night quil. C/O loose cough non productive. Pt will come in today for Chest X ray (see Nasra Boothe NP message below) . Chest Xray ordered. Pt is asking if covering could send in an antibiotic? Pharmacy noted * Telephone Encounter - Juli Boothe NP - 05/08/2016 5:15 PM EST No wheezing noted but patient states it occurs at night. Has a remote history of asthma. As she is coughing at night, will send in a prescription for cough medicine with codeine. If symptoms do not improve within the week, may need cxr. She declines one today. * Telephone Encounter - Sparkle Reynolds - 05/08/2016 4:55 PM EST While at a nurse visit for BP check, pt c/o not being well for 2 weeks, has a persistent cough, is worse at night; Is taking Dayquil and Nyquil; States she wheezes also, cannot expectorate well, but has green phlegm; Has PMH of asthma as a child, has used ProAir before, does not have this now. Nasra Boothe in to see pt; lungs clear, will order cough med and ProAir inhaler Note to Nasra for orders; had said pt would need cxr if not improved. documented in this encounter Plan of Treatment Not on file documented as of this encounter Results * Due to [place] state law, this organization might not be sharing negative HIV tests. * XRAY CHEST, 2 VIEWS, PA & LATERAL (DX: COUGH R05/ 786.2) (TODAY) FC (05/29/2016 7:48 AM EDT) Anatomical Region Laterality Modality CHEST Radiographic Brielle ging 05/30/2016 2:17 AM EDT Narrative 05/30/2016 2:17 AM EDT 2 view chest x-ray. Comparison: 01/15/[address] Findings: No consolidation or effusion. Heart size normal. Bones unremarkable. Impression: 1. Normal heart and lungs Procedure Note Clayton Kumar MD - 05/30/2016 2 view chest x-ray. Comparison: 01/15/[address] Findings: No consolidation or effusion. Heart size normal. Bones unremarkable. Impression: 1. Normal heart and lungs 02:17:54 Jose Mcguire MD IMG XRAY NO CONTRAST ORDERABLES Final Result documented in this encounter Visit Diagnoses Diagnosis Bronchitis Bronchitis, not specified as acute or chronic Cough Cough documented in this encounter Additional Health Concerns Infection Onset Date Last Indicated Resolved Time COVID-19 Rule-Out 01/13/2020 01/13/2020 01/13/2020 2:43 PM EST COVID-19 Rule-Out 02/22/2020 02/22/2020 02/22/2020 5:30 PM EST COVID-19 Confirmed 02/22/2020 02/22/2020 1 8:12 PM EDT COVID-19 Confirmed 03/09/2021 03/09/2021 2 8:12 PM EDT documented as of this encounter Care Teams Chute Operator Relationship Specialty Start Date End Date Jose Mcguire MD PCP - General Internal Medicine 06/10/15 05/19/19 Vandana Pierce MD PCP - General Family Medicine 05/20/19 08/03/20 Norman Arita MD [address] [place] [address] PCP - General Internal Medicine 08/04/20 03/04/22 documented as of this encounter
--- OUTSIDE RECORDS SUMMARY | 2024-11-13 16:08 | XMS_ITS | Encounter Summary ---
Author Organization [facility] Address [address] [place] [address] Care Team Providers Care Edge Runner Name Role Phone Vandana Pierce MD Primary Care Provider [phone] Norman Arita MD Primary Care Provider [phone] Reason for Visit * Reason Onset Date Comments Refill Request 10/19/2019 Encounter Details Date Type Department Care Team (Late st Contact Info) Description 10/19/2019 Refill [facility] [address] [place] [phone] Davis Damon MD [address] [place] [id number] Refill Request Social History Tobacco Use Types [...] have Coronavirus / COVID-19? No / Unsure 10/17/2019 12:49 PM EDT documented as of this encounter Miscellaneous Notes * Telephone Encounter - Kenny Deleon LPN - 10/20/2019 8:23 AM EDT Pt last seen in office with Dr. Damon 11/26/18 documented in this encounter Plan of [...] documented as of this encounter Care Teams Edge Runner Relationship Specialty Start Date End Date Vandana Pierce MD PCP - General Family Medicine 05/20/19 08/03/20 Norman Arita MD [address] [place] [place] [address] PCP - General Internal Medicine 08/04/20 03/04/22 documented as of this encounter
--- OUTSIDE RECORDS SUMMARY | 2024-11-13 16:08 | XMS_ITS | Encounter Summary ---
Author Organization [facility] Address [address] [place] [address] Care Team Providers Care City Secretary Name Role Phone Osiris Sanchez MD Primary Care Provider [phone] Jose Mcguire MD Primary Care Provider Gela Vandana Tovar MD Primary Care Provider [phone] Norman Arita MD Primary Care Provider [phone] Encounter Details Date Type Department Care Team (Late st Contact Info) Description 11/25/2010 Orders Only May Internal Medicine [address] [place] [address] Juli Boothe, FIELD ARTILLERY RADAR OPERATOR [address] [place] [address] Social History Tobacco Use Types Packs/Day Years [...] 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 See TM of 12-01-10 documented in this encounter Plan of Treatment Not on file documented as of this encounter Procedures * Due to [place] [employer] law, this organization might not be sharing negative HIV tests. Procedure Name Priority Date/Time Associated Diagnosis Comments BV/VAGINITIS PANELDNA PROBE(AFFIRM) Routine 11/25/2010 5:02 PM EDT Urinary frequency CULTURE, GENITAL Routine 11/25/2010 5:02 PM EDT Urinary frequency URINALYSIS, DIP ONLY STAT (All results called to provider) 11/25/2010 2:56 PM EDT UTI (urinary tract infection), uncomplicated CULTURE, URINE, ROUTINE STAT (All results called to provider) 11/25/2010 2:55 PM EDT UTI (urinary tract infection), uncomplicated URINALYSIS, MICROSCOPIC Routine 11/25/2010 2:55 PM EDT UTI (urinary tract infection), uncomplicated documented in this encounter Results * Due to [place] [employer] law, this organization might not be sharing negative HIV tests. * CULTURE, GENITAL (11/25/2010 5:02 PM EDT) Bacteria culture (Genital) SEE NOTE [facility] Comment: {CULTURE, GENITAL {[id number]) CULTURE, GENITAL MICRO NUMBER: [id number] TEST STATUS: FINAL SPECIMEN SOURCE: NOT GIVEN SPECIMEN QUALITY: ADEQUATE RESULT: Heavy growth of Presumptive Gardnerella vaginalis COMMENT: Normal urogenital azar also present. 11/25/2010 5:02 PM EDT 11/25/2010 9:15 PM EDT Narrative Resulting Agency Comment [id number] Juli Boothe NP LABORATORY Final Result Performing Organization Address [facility] [place]/[facility]/ZIP Co de Phone Number [facility] [address] [place] [address] * (ABNORMAL) BV/VAGINITIS PANELDNA PROBE (11/25/2010 5:02 PM EDT) Pathologist [facility] [place] Trichomonas vaginalis rRNA (Genital) NOT DETECTED NOT DETECTED [facility] Comment:{TRICHOMONAS: {[id number]) Gardnerella vaginalis rRNA (Genital) DETECTED(A) NOT DETECTED [facility] Comment: {GARDNERELLA: {[id number]) Increased levels of G. vaginalis may not be significant in the absence of signs and symptoms of bacterial vaginosis. Yecenia sp rRNA (Vag) NOT DETECTED NOT DETECTED [facility] Comment:{YECENIA: {[id number]) 11/25/2010 5:02 PM EDT 11/25/2010 9:15 PM EDT Narrative Resulting Agency Comment [id number] Juli Boothe FIELD ARTILLERY RADAR OPERATOR LABORATORY Final Result Performing Organization Address [facility] [place] Co de Phone Number [facility] [address] [place] [address] * (ABNORMAL) URINALYSIS, DIP ONLY ( SITE STAT ONLY) (11/25/2010 2:56 PM EDT) Pathologist [facility] [place] COLOR (URINE) YELLOW [facility] (CLIA# [id number]) APPEARANCE (URINE) CLEAR [facility] (CLIA# [id number]) SPECIFIC GRAVITY 1.025 1.001 - 1.035 [facility] (CLIA# [id number]) PH (URINE) 6.5 5.0 - 8.0 [facility] (CLIA# [id number]) PROTEIN (URINE) TRACE Neg - Neg [facility] (CLIA# [id number]) GLUCOSE (URINE) NEGATIVE Neg - Neg [facility] (CLIA# [id number]) Ketones (Urine) NEGATIVE Neg - Neg [facility] (CLIA# [id number]) BILIRUBIN (URINE) NEGATIVE Neg - Neg [facility] (CLIA# [id number]) BLOOD (URINE) NEGATIVE Neg - Neg [facility] (CLIA# [id number]) WBC (URINE) NEGATIVE Neg - Neg [facility] (CLIA# [id number]) NITRITE (URINE) NEGATIVE Neg - Neg [facility] (CLIA# [id number]) Urine specimen obtained by clean catch procedure (specimen) 11/25/2010 2:56 PM EDT Narrative [facility] (CLIA# [id number]) - 11/25/2010 2:57 PM EDT Culture already ordered per provider. Micro added. Juli Boothe FIELD ARTILLERY RADAR OPERATOR LAB SAME DAY RESULT Final Resul t Performing Organization Address City/[facility]/ZIP Co de Phone Number [facility] (CLIA# [id number]) [address] [place] [address] * CULTURE, URINE, ROUTINE (11/25/2010 2:55 PM EDT) Bacteria culture (Urine) SEE NOTE [facility] Comment: {CULTURE, URINE, ROUTINE {[id number]) CULTURE, URINE, ROUTINE MICRO NUMBER: [id number] TEST STATUS: FINAL SPECIMEN SOURCE: URINE SPECIMEN QUALITY: ADEQUATE RESULT: Multiple organisms present, each less than 10,000 CFU/mL. These organisms, commonly found on external and internal genitalia, are considered to be colonizers. No further testing performed. 11/25/2010 2:55 PM EDT 11/25/2010 9:13 PM EDT Narrative Resulting Agency Comment [id number] Juli Boothe FIELD ARTILLERY RADAR OPERATOR LABORATORY Final Result [facility] [address] [place] [address] * (ABNORMAL) URINALYSIS, MICROSCOPIC (11/25/2010 2:55 PM EDT) WBC (Urine) NONE SEEN < OR = 5 /HPF [facility] Comment:{WBC {[id number]) RBC (Urine Sed) NONE SEEN < OR = 3 /HPF [facility] Comment:{RBC {[id number]) Epithelial cells.squamous (Urine sed) 0-5 < OR = 5 /HPF [facility] Comment:{SQUAMOUS EPITHELIAL CELLS {[id number]) Bacteria (Urine) FEW(A) NONE SEEN /HPF [facility] Comment:{BACTERIA {[id number]) Hyaline casts (Urine sed) NONE SEEN NONE SEEN /LPF [facility] Comment:{HYALINE CAST {[id number]) Service comment 01 SEE NOTE [facility] Comment: {NOTE {[id number]) This urine was analyzed for the presence of WBC, RBC, bacteria, casts, and other formed elements. Only those elements seen were reported. 11/25/2010 2:55 PM EDT 11/25/2010 9:13 PM EDT Narrative Resulting Agency Comment [id number] Juli Boothe FIELD ARTILLERY RADAR OPERATOR LAB SAME DAY RESULT Final Resul t Performing Organization Address City/State/[facility] Co de Phone Number [facility] [address] [place] [address] documented in this encounter Visit Diagnoses Diagnosis UTI (urinary tract infection), uncomplicated- Primary Urinary tract infection, site not specified Urinary frequency documented in this encounter Additional Health Concerns Infection Onset Date Last Indicated Resolved Time COVID-19 Rule-Out 01/13/2020 01/13/2020 01/13/2020 2:43 PM EST COVID-19 Rule-Out 02/22/2020 02/22/2020 02/22/2020 5:30 PM EST COVID-19 Confirmed 02/22/2020 02/22/2020 1 8:12 PM EDT COVID-19 Confirmed 03/09/2021 03/09/2021 2 8:12 PM EDT documented as of this encounter Care Teams City Secretary Relationship Specialty Start Date End Date Osiris Sanchez MD [address] [place] [address] PCP - General 07/24/06 06/09/15 Jose Mcguire MD PCP - General Internal Medicine 06/10/15 05/19/19 Vandana Pierce MD PCP - General Family Medicine 05/20/19 08/03/20 Norman Arita MD [address] [place] [address] PCP - General Internal Medicine 08/04/20 03/04/22 documented as of this encounter
--- OUTSIDE RECORDS SUMMARY | 2024-11-13 16:08 | XMS_ITS | Encounter Summary ---
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 No / Unsure 11/20/2019 10:29 PM EDT documented as of this encounter Progress Notes * Vandana Pierce MD - 11/25/2019 2:54 PM EDT See [employer] message documented in this encounter Plan of Treatment Not on file documented as of this encounter Procedures * Due to [place] [employer] law, this organization might not be sharing negative HIV tests. Procedure Name Priority Date/Time Associated Diagnosis Comments VENIPUNCTURE Routine 11/25/2019 2:54 PM EDT Hypothyroidism, unspecified type LIPID PANEL WITH REFLEX TO DIRECT LDL Routine 11/25/2019 2:54 PM EDT Mixed hyperlipidemia BASIC METABOLIC PANEL WITH (GFR) Routine 11/25/2019 2:54 PM EDT Essential hypertension documented in this encounter Results * Due to [place] [employer] law, this organization might not be sharing negative HIV tests. * BASIC METABOLIC PANEL WITH (GFR) (11/25/2019 2:54 PM EDT) Glucose 81 65 - 99 mg/dL [facility] Comment:Fasting reference in terval Urea Nitrogen Blood (BUN) 14 7 - 25 mg/dL [facility] Creatinine 0.78 0.50 - 1.05 mg/dL [facility] Comment: For patients >49 years of age, the reference limit for Creatinine is approximately 13% higher for people identified as -Romanian. EGFR 89 > OR = 60 mL/min/1 .73m2 [facility] GFR () 103 > OR = 60 mL/min/1 .73m2 [facility] BUN/Creatinine Ratio NOT APPLICABLE (calc) [facility] Sodium 138 135 - 146 mmol/L [facility] Potassium 4.1 3.5 - 5.3 mmol/L [facility] Chloride 102 98 - 110 mmol/L [facility] Carbon dioxide 29 20 - 32 mmol/L [facility] Calcium 9.9 8.6 - 10.4 mg/dL [facility] 11/25/2019 2:54 PM EDT 11/25/2019 3:40 PM EDT Narrative [facility] - 11/25/2019 8:24 PM EDT Please note that this estimated [...] needs for GFR calculation. Resulting Agency Comment [id number] Vandana Pierce MD LABORATORY Final Result [facility] [address] [place] [address] * (ABNORMAL) LIPID PANEL WITH REFLEX TO DIRECT LDL (11/25/2019 2:54 PM EDT) Cholesterol 179 <200 mg/dL [facility] HDL Cholesterol 43(L) > OR = 50 mg/dL [facility] Triglyceride 186(H) <150 mg/dL [facility] LDL Cholesterol 106(H) mg/dL (calc) [facility] Comment: Reference range: [...] LDL-C. Junior SS et al. RASHI. 2013;310(19): 0574-5872 (http://education.Helleroy.Glassy Pro/faq/VNJ279) CHOL/HDL Ratio 4.2 <5.0 (calc) [facility] Cholesterol Non-HDL 136(H) <130 mg/dL (calc) [facility] Comment: For patients with diabetes plus 1 major ASCVD risk factor, treating to a non-HDL-C goal of <100 mg/dL (LDL-C of <70 mg/dL) is considered a therapeutic option. 11/25/2019 2:54 PM EDT 11/25/2019 3:40 PM EDT Narrative Resulting Agency Comment [id number] Vandana Pierce MD LABORATORY Final Result [facility] [address] [place] [address] * THYROID STIMULATING HORMONE (TSH) WITH FREE T4 REFLEX, SERUM (11/25/2019 2:54 PM EDT) TSH 0.99 mIU/L [facility] Comment: Reference Range > or = 20 Years 0.40-4.50 Ranges First trimester 0.26-2.66 Second trimester 0.55-2.73 Third trimester 0.43-2.91 11/25/2019 2:54 PM EDT 11/25/2019 3:40 PM EDT Narrative Resulting Agency Comment [id number] Vandana Pierce MD LABORATORY Final Result Performing Organization Address [facility] Co de Phone Number [facility] [address] [place] [address] documented in this encounter Visit Diagnoses Diagnosis Hypothyroidism, unspecified type Mixed hyperlipidemia Essential hypertension documented in this encounter Additional Health Concerns Infection Onset Date Last Indicated Resolved Time COVID-19 Rule-Out 01/13/2020 01/13/2020 01/13/2020 2:43 PM EST COVID-19 Rule-Out 02/22/2020 02/22/2020 02/22/2020 5:30 PM EST COVID-19 Confirmed 02/22/2020 02/22/2020 1 8:12 PM EDT COVID-19 Confirmed 03/09/2021 03/09/2021 2 8:12 PM EDT documented as of this encounter Care Teams Fixed Wing Pilot Relationship Specialty Start Date End Date Vandana Pierce MD PCP - General Family Medicine 05/20/19 08/03/20 Norman Arita MD [address] [place] [address] PCP - General Internal Medicine 08/04/20 03/04/22 documented as of this encounter
--- OUTSIDE RECORDS SUMMARY | 2024-11-13 16:08 | XMS_ITS | Encounter Summary ---
Author Organization [facility] Address [address] [place] [address] Care Team Providers Care Surgery Aid Name Role Phone Osiris Sanchez MD Primary Care Provider [phone] Jose Mcguire MD Primary Care Provider Gela Vandana Tovar MD Primary Care Provider [phone] Norman Arita MD Primary Care Provider [phone] Encounter Details Date Type Department Care Team (Late st Contact Info) Description 05/05/2010 Orders Only May Internal Medicine [address] [place] [address] Osiris Sanchez MD [address] [place] [address] Medications Social History Tobacco Use Types Packs/Day [...] 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 documented in this encounter Plan of Treatment Not on file documented as of this encounter Procedures * Due to [place] [employer] law, this organization might not be sharing negative HIV tests. Procedure Name Priority Date/Time Associated Diagnosis Comments CULTURE, URINE Routine 05/05/2010 UTI (urinary tract infection) documented in this encounter Results * Due to [place] [employer] law, this organization might not be sharing negative HIV tests. * (ABNORMAL) CULTURE, URINE (05/05/2010) URINE CULTURE CLEAN VOID SEE TEXT(A) [facility] Comment: SOURCE: URINE (#1) >100,000 CFU/ML E COLI SUSCEPTIBILITIES #1 AMPICILLIN <8 S AMPICILLIN/SUL <8 S AUGMENTIN <8 S CEFAZOLIN <8 S CEFEPIME <4 S CEFOTAXIME <2 S CEFTRIAXONE <8 S CEFUROXIME <4 S CIPROFLOXACIN 2 I ERTAPENEM <2 S GENTAMICIN <4 S IMIPENEM <1 S LEVOFLOXACIN 4 I NITROFURANTOIN <32 S PIPERACILLIN/TA <16 S TIMENTIN <16 S TOBRAMYCIN <4 S TRIMETH/SULFA <2 S 05/05/2010 05/05/2010 9:4 6 PM EST Osiris Sanchez MD LABORATORY Final Result [email or web address] [address] [place] [address] documented in this encounter Visit Diagnoses Diagnosis UTI (urinary tract infection)- Primary Urinary tract infection, site not specified documented in this encounter Additional Health Concerns Infection Onset Date Last Indicated Resolved Time COVID-19 Rule-Out 01/13/2020 01/13/2020 01/13/2020 2:43 PM EST COVID-19 Rule-Out 02/22/2020 02/22/202002/22/2020 5:30 PM EST COVID-19 Confirmed 02/22/2020 02/22/2020 1 8:12 PM EDT COVID-19 Confirmed 03/09/2021 03/09/2021 2 8:12 PM EDT documented as of this encounter Care Teams Surgery Aid Relationship Specialty Start Date End Date Osiris Sanchez MD [address] [place] [address] PCP - General 07/24/06 06/09/15 Jose Mcguire MD PCP - General Internal Medicine 06/10/15 05/19/19 Vandana Pierce MD PCP - General Family Medicine 05/20/19 08/03/20 Norman Arita MD [address] [place] [address] PCP - General Internal Medicine 08/04/20 03/04/22 documented as of this encounter
--- OUTSIDE RECORDS SUMMARY | 2024-11-13 16:08 | XMS_ITS | Encounter Summary ---
Author Organization [facility] Address [address] [place] [address] Care Team Providers Care Correctional Nurse Name Role Phone Osiris Sanchez MD Primary Care Provider [phone] Jose Mcguire MD Primary Care Provider Gela Vandana Tovar MD Primary Care Provider [phone] Norman Arita MD Primary Care Provider [phone] Encounter Details Date Type Department Care Team (Late st Contact Info) Description 02/03/2011 Orders Only May Internal Medicine [address] [place] [address] Osiris Sanchez MD [address] [place] [address] Social History Tobacco Use Types Packs/Day Years [...] 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 documented in this encounter Plan of Treatment Not on file documented as of this encounter Procedures * Due to [place] [employer] law, this organization might not be sharing negative HIV tests. Procedure Name Priority Date/Time Associated Diagnosis Comments CBC INCLUDES DIFFERENTIAL AND PLATELET COUNT Routine 02/03/2011 8:33 AM EST Pre-operative examination THYROID STIMULATING HORMONE (TSH) WITH FREE T4 REFLEX, SERUM Routine 02/03/2011 8:33 AM EST Pre-operative examination BASIC METABOLIC PANEL WITH (GFR) Routine 02/03/2011 8:33 AM EST Pre-operative examination documented in this encounter Results * Due to [place] [employer] law, this organization might not be sharing negative HIV tests. * THYROID STIMULATING HORMONE (TSH) WITH FREE T4 REFLEX, SERUM (02/03/2011 8:33 AM EST) TSH 1.18 mIU/L [facility] Comment: {TSH, 3RD GENERATION W/REFLEX TO FT4 {[id number]) Reference Range > or = 20 Years 0.40-4.50 Ranges First trimester 0.20-4.70 Second trimester 0.30-4.10 Third trimester 0.40-2.70 02/03/2011 8:33 AM EST 02/03/2011 4:34 PM EST Narrative Resulting Agency Comment [id number] Osiris Sanchez MD LABORATORY Final Result [facility] [address] [place] [address] * BASIC METABOLIC PANEL WITH (GFR) (02/03/2011 8:33 AM EST) Glucose 85 65 - 99 mg/dL [facility] Comment: {GLUCOSE {[id number]) Fasting reference interval Urea Nitrogen Blood (BUN) 10 7 - 25 mg/dL [facility] Comment:{UREA NITROGEN (BUN) {[id number]) Creatinine 0.67 0.59 - 1.07 mg/dL [facility] Comment:{CREATININE {[id number]) GFR 109 > OR = 60 mL/min/1. 73m2 [facility] Comment:{eGFR NON-AFR. AMERI CAN {[id number]) GFR () 127 > OR = 60 mL/min/1. 73m2 [facility] Comment:{eGFR AMERIC AN {[id number]) BUN/Creatinine Ratio NOT APPLICABLE (calc) [facility] Comment:{BUN/CREATININE RATI O {[id number]) Sodium 143 135 - 146 mmol/L [facility] Comment:{SODIUM {[id number]) Potassium 3.7 3.5 - 5.3 mmol/L [facility] Comment:{POTASSIUM {[id number]) Chloride 105 98 - 110 mmol/L [facility] Comment:{CHLORIDE {[id number]) Carbon dioxide 25 21 - 33 mmol/L [facility] Comment:{CARBON DIOXIDE {[id number]) Calcium 9.5 8.6 - 10.2 mg/dL [facility] Comment:{CALCIUM {[id number]) 02/03/2011 8:33 AM EST 02/03/2011 4:34 PM EST Narrative [facility] - 02/03/2011 7:08 PM EST Please note that this estimated [...] needs for GFR calculation. Resulting Agency Comment [id number] Osiris Sanchez MD LABORATORY Final Result [facility] [address] [place] [address] * CBC INCLUDES DIFFERENTIAL AND PLATELET COUNT (02/03/2011 8:33 AM EST) [facility] WBC 4.2 3.8 - 10.8 Thousand/u L [facility] Comment:{WHITE BLOOD CELL CO UNT {[id number]) RBC 4.49 3.80 - 5.10 Million/uL [facility] Comment:{RED BLOOD CELL COUN T {[id number]) Hemoglobin 13.0 11.7 - 15.5 g/dL [facility] Comment:{HEMOGLOBIN {[id number]) Hematocrit 38.5 35.0 - 45.0 % [facility] Comment:{HEMATOCRIT {[id number]) MCV 85.7 80.0 - 100.0 fL [facility] Comment:{MCV {[id number]) MCH 29.0 27.0 - 33.0 pg [facility] Comment:{MCH {[id number]) MCHC 33.8 32.0 - 36.0 g/dL [facility] Comment:{MCHC {[id number]) RDW 13.6 11.0 - 15.0 % [facility] Comment:{RDW {[id number]) PLT 140 140 - 400 Thousand/u L [facility] Comment:{PLATELET COUNT {[id number]) MPV 10.7 7.5 - 11.5 fL [facility] Comment:{MPV {[id number]) Neutrophils # 1911 1500 - 7800 cells/uL [facility] Comment:{ABSOLUTE NEUTROPHIL S {[id number]) Lymphocytes # 1827 850 - 3900 cells/uL [facility] Comment:{ABSOLUTE LYMPHOCYTE S {[id number]) Monocytes # 302 200 - 950 cells/uL [facility] Comment:{ABSOLUTE MONOCYTES {[id number]) Eosinophils # 147 15 - 500 cells/uL [facility] Comment:{ABSOLUTE EOSINOPHIL S {[id number]) Basophils # 13 0 - 200 cells/uL [facility] Comment:{ABSOLUTE BASOPHILS {[id number]) Neutrophils % 45.5 % [facility] Comment:{NEUTROPHILS {[id number]) Lymphocytes % 43.5 % [facility] Comment:{LYMPHOCYTES {[id number]) Monocytes % 7.2 % [facility] Comment:{MONOCYTES {[id number]) Eosinophils % 3.5 % [facility] Comment:{EOSINOPHILS {[id number]) Basophils % 0.3 % [facility] Comment:{BASOPHILS {[id number]) 02/03/2011 8:33 AM EST 02/03/2011 4:34 PM EST Narrative Resulting Agency Comment [id number] us Osiris Sanchez MD LAB SAME DAY RESULT Final Resul t [facility] [address] [place] [address] documented in this encounter Visit Diagnoses Diagnosis Pre-operative examination Preoperative examination, unspecified Depression Depressive disorder, not elsewhere classified Possible exposure to STD Other specified personal history presenting hazards to health documented in this encounter Additional Health Concerns Infection Onset Date Last Indicated Resolved Time COVID-19 Rule-Out 01/13/2020 01/13/2020 01/13/2020 2:43 PM EST COVID-19 Rule-Out 02/22/2020 02/22/2020 02/22/2020 5:30 PM EST COVID-19 Confirmed 02/22/2020 02/22/2020 1 8:12 PM EDT COVID-19 Confirmed 03/09/2021 03/09/2021 2 8:12 PM EDT documented as of this encounter Care Teams Correctional Nurse Relationship Specialty Start Date End Date Osiris Sanchez MD [address] [place] [address] PCP - General 07/24/06 06/09/15 Jose Mcguire MD PCP - General Internal Medicine 06/10/15 05/19/19 Vandana Pierce MD PCP - General Family Medicine 05/20/19 08/03/20 Norman Arita MD [address] [place] [address] PCP - General Internal Medicine 08/04/20 03/04/22 documented as of this encounter
--- OUTSIDE RECORDS SUMMARY | 2024-11-13 16:08 | XMS_ITS | Encounter Summary ---
Author Organization [facility] Address [address] [place] [address] Care Team Providers Care Senior Project Coordinator Name Role Phone Vandana Pierce MD Primary Care Provider [phone] Norman Arita MD Primary Care Provider [phone] Reason for Visit * Reason Onset Date Comments Refill Request 01/04/2020 Encounter Details Date Type Department Care Team (Late st Contact Info) Description 01/04/2020 Refill [facility] [address] [place] [phone] Brielle Brown NP Refill Request Social History Tobacco Use Types [...] 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, 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 Not on file documented as of this encounter Plan of Treatment Not on file documented as of this encounter Visit Diagnoses Diagnosis Exacerbation of asthma, unspecified asthma severity, unspecified whether persistent (HHS) documented in this encounter Additional Health Concerns Infection Onset Date Last Indicated Resolved Time COVID-19 Rule-Out 01/13/2020 01/13/2020 01/13/2020 2:43 PM EST COVID-19 Rule-Out 02/22/2020 02/22/2020 02/22/2020 5:30 PM EST COVID-19 Confirmed 02/22/2020 02/22/2020 1 8:12 PM EDT COVID-19 Confirmed 03/09/2021 03/09/2021 2 8:12 PM EDT documented as of this encounter Care Teams Senior Project Coordinator Relationship Specialty Start Date End Date Vandana Pierce MD PCP - General Family Medicine 05/20/19 08/03/20 Norman Arita MD [address] [place] [address] PCP - General Internal Medicine 08/04/20 03/04/22 documented as of this encounter
--- OUTSIDE RECORDS SUMMARY | 2024-11-13 16:08 | XMS_ITS | Encounter Summary ---
Author Organization [facility] Address [address] [place] [address] Care Team Providers Care Slumber Room Attendant Name Role Phone Osiris Sanchez MD Primary Care Provider [phone] Jose Mcguire MD Primary Care Provider Gela Vandana Tovar MD Primary Care Provider [phone] Norman Arita MD Primary Care Provider [phone] Encounter Details Date Type Department Care Team (Late st Contact Info) Description 09/04/2011 Orders Only [facility] [address] [place] [phone] Maik Adams MD Social History Tobacco Use Types Packs/Day [...] Industry Job Start Date Job End Date [employer] Not on file Not on file Not on file documented as of this encounter Progress Notes * Patricia Camacho NP - 09/06/2011 9:44 AM EDTQuick Note: Urine cx noted * Joby Oleary CRNP - 09/04/2011 9:09 PM EDTQuick Note: Micro noted on Macrobid documented in this encounter Plan of Treatment Not on file documented as of this encounter Procedures * Due to [place] [employer] law, this organization might not be sharing negative HIV tests. Procedure Name Priority Date/Time Associated Diagnosis Comments CULTURE, URINE, ROUTINE Routine 09/04/2011 6:52 PM EDT UTI (urinary tract infection), uncomplicated URINALYSIS, MICROSCOPIC STAT (All results called to provider) 09/04/2011 6:52 PM EDT UTI (urinary tract infection), uncomplicated documented in this encounter Results * Due to [place] [employer] law, this organization might not be sharing negative HIV tests. * (ABNORMAL) CULTURE, URINE, ROUTINE (09/04/2011 6:52 PM EDT) Bacteria culture (Urine) SEE NOTE(A) [facility] Comment: {CULTURE, URINE, ROUTINE {[id number]) CULTURE, URINE, ROUTINE MICRO NUMBER: [id number] TEST STATUS: FINAL SPECIMEN SOURCE: URINE SPECIMEN QUALITY: ADEQUATE RESULT: Greater than 100,000 CFU/mL of Escherichia coli E.coli INT TYLER [...] Not Reported nn = See Therapy Comments 09/04/2011 6:52 PM EDT 09/04/2011 6:57 PM EDT Narrative Resulting Agency Comment [id number] Maik Adams MD LABORATORY Final Resul t Performing Organization Address [facility] de Phone Number [facility] [address] [place] [address] * (ABNORMAL) URINALYSIS, MICROSCOPIC (09/04/2011 6:52 PM EDT) WBC (Urine) 40-60(A) < OR = 5 /HPF [facility] Comment:{WBC {[id number]) RBC (Urine Sed) 4-10(A) < OR = 3 /HPF [facility] Comment:{RBC {[id number]) Epithelial cells.squamous (Urine sed) 0-5 < OR = 5 /HPF [facility] Comment:{SQUAMOUS EPITHELIAL CELLS {[id number]) Bacteria (Urine) MODERATE( A) NONE SEEN /HPF [facility] Comment:{BACTERIA {[id number]) Service comment 01 SEE NOTE [facility] Comment: {NOTE {[id number]) This urine was analyzed for the presence of WBC, RBC, bacteria, casts, and other formed elements. Only those elements seen were reported. 09/04/2011 6:52 PM EDT 09/04/2011 6:57 PM EDT Narrative Resulting Agency Comment [id number] Maik Adams MD LAB SAME DAY RESULT Final R esult Performing Organization Address [facility] de Phone Number [facility] [address] [place] [address] documented in this encounter Visit Diagnoses Diagnosis UTI (urinary tract infection), uncomplicated Urinary tract infection, site not specified documented in this encounter Additional Health Concerns Infection Onset Date Last Indicated Resolved Time COVID-19 Rule-Out 01/13/2020 01/13/2020 01/13/2020 2:43 PM EST COVID-19 Rule-Out 02/22/2020 02/22/2020 02/22/2020 5:30 PM EST COVID-19 Confirmed 02/22/2020 02/22/2020 1 8:12 PM EDT COVID-19 Confirmed 03/09/2021 03/09/2021 2 8:12 PM EDT documented as of this encounter Care Teams Slumber Room Attendant Relationship Specialty Start Date End Date Osiris Sanchez MD [address] [place] [address] PCP - General 07/24/06 06/09/15 Jose Mcguire MD PCP - General Internal Medicine 06/10/15 05/19/19 Vandana Pierce MD PCP - General Family Medicine 05/20/19 08/03/20 Norman Arita MD [address] [place] [address] PCP - General Internal Medicine 08/04/20 03/04/22 documented as of this encounter
--- OUTSIDE RECORDS SUMMARY | 2024-11-13 16:08 | XMS_ITS | Encounter Summary ---
Author Organization [facility] Address [address] [place] [address] Care Team Providers Care Rehabilitation Services Counselor Name Role Phone Jose Mcguire MD Primary Care Provider Vandana Vazquez MD Primary Care Provider [phone] Norman Arita MD Primary Care Provider [phone] Reason for Visit * Reason Onset Date Comments Refill Request 02/23/2016 Encounter Details Date Type Department Care Team (Late st Contact Info) Description 02/23/2016 [facility]ill [facility] [address] [place] [address] Osiris Sanchez MD [address] [place] [address] Refill Request Social History Tobacco Use Types [...] documented as of this encounter Care Teams Rehabilitation Services Counselor Relationship Specialty Start Date End Date Jose Mcguire MD PCP - General Internal Medicine 06/10/15 05/19/19 Vandana Pierce MD PCP - General Family Medicine 05/20/19 08/03/20 Norman Arita MD [address] [place] [address] PCP - General Internal Medicine 08/04/20 03/04/22 documented as of this encounter
--- OUTSIDE RECORDS SUMMARY | 2024-11-13 16:08 | XMS_ITS | Encounter Summary ---
Author Organization [facility] Address [address] [place] [address] Care Team Providers Care Booster Plant Operator Name Role Phone Jose Mcguire MD Primary Care Provider Vandana Vazquez MD Primary Care Provider [phone] Norman Arita MD Primary Care Provider [phone] Encounter Details Date Type Department Care Team (Late Contact Info) Description 03/29/2016 Orders Only [facility] [address] [place] [phone] Juli Boothe NP [address] [place] [address] Social History Tobacco Use Types Packs/Day Years [...] Progress Notes * Juli Boothe NP - 03/30/2016 9:17 AM ESTQuick Note: Recently seen by PCP documented in this encounter Plan of Treatment Not on file documented as of this encounter Procedures * Due to [place] [employer] law, this organization might not be sharing negative HIV tests. Procedure Name Priority Date/Time Associated Diagnosis Comments LIPID PANEL WITH REFLEX TO DIRECT LDL Routine 03/29/2016 11:48 AM EST Hyperlipidemia, unspecified hyperlipidemia type documented in this encounter Results * Due to [place] [employer] law, this organization might not be sharing negative HIV tests. * (ABNORMAL) LIPID PANEL WITH REFLEX TO DIRECT LDL (03/29/2016 11:48 AM EST) Cholesterol 250(H) 125 - 200 mg/dL [facility] HDL Cholesterol 33(L) > OR = 46 mg/dL [facility] Triglyceride 442(H) <150 mg/dL [facility] LDL Cholesterol SEE NOTE <130 mg/dL (calc) [facility] Comment: LDL cholesterol not calculated. Triglyceride levels greater than 400 mg/dL invalidate calculated LDL results. Desirable range <100 mg/dL for patients with CHD or diabetes and <70 mg/dL for diabetic patients with known heart disease. CHOL/HDL Ratio 7.6(H) < OR = 5.0 (calc) [facility] Cholesterol Non-HDL 217(H) mg/dL (calc) [facility] Comment: Target for non-HDL cholesterol is 30 mg/dL higher than LDL cholesterol target. LDL, Direct Measure 141(H) <130 mg/dL [facility] Comment: Desirable range <100 mg/dL for patients with CHD or diabetes and <70 mg/dL for diabetic patients with known heart disease. 03/29/2016 11:4 8 AM EST 03/29/2016 5:49 PM EST Narrative Resulting Agency Comment [id number] Juli Boothe NP LABORATORY Final Result [facility] [address] [place] [address] documented in this encounter Visit Diagnoses Diagnosis [...] documented as of this encounter Care Teams Booster Plant Operator Relationship Specialty Start Date End Date Jose Mcguire MD PCP - General Internal Medicine 06/10/15 05/19/19 Vandana Pierce MD PCP - General Family Medicine 05/20/19 08/03/20 Norman Arita MD [address] [facility] [place] [address] PCP - General Internal Medicine 08/04/20 03/04/22 documented as of this encounter
--- OUTSIDE RECORDS SUMMARY | 2024-11-13 16:09 | XMS_ITS | Encounter Summary ---
Author Organization [facility] Address [address] [place] [address] Care Team Providers Care Food Beverage Server Name Role Phone Jose Mcguire MD Primary Care Provider Vandana Vazquez MD Primary Care Provider [phone] Norman Arita MD Primary Care Provider [phone] Encounter Details Date Type Department Care Team (Late st Contact Info) Description 09/18/2018 Orders Only [facility] [address] [place] [phone] Jose Mcguire MD Social History Tobacco Use [...] as of this encounter Progress Notes * Jsoe Mcguire - 09/19/2018 7:50 PM EDT . documented in this encounter Plan of Treatment Not on file documented as of this encounter Procedures * Due to [place] [employer] law, this organization might not be sharing negative HIV tests. Procedure Name Priority Date/Time Associated Diagnosis Comments CULTURE, URINE, ROUTINE Routine 09/18/2018 4:52 PM EDT Frequency of urination URINALYSIS, COMPLETE INCLUDES DIPSTICK AND MICROSCOPIC Same Day Results 09/18/2018 4:52 PM EDT Frequency of urination documented in this encounter Results * Due to [place] [employer] law, this organization might not be sharing negative HIV tests. * CULTURE, URINE, ROUTINE (09/18/2018 4:52 PM EDT) Bacteria culture (Urine) SEE NOTE [facility] Comment: CULTURE, URINE, ROUTINE MICRO NUMBER: [id number] TEST STATUS: FINAL SPECIMEN SOURCE: URINE SPECIMEN QUALITY: ADEQUATE RESULT: No Growth 09/18/2018 4:52 PM EDT 09/18/2018 7:00 PM EDT Narrative Resulting Agency Comment [id number] Jose Mcguire MD LABORATORY Final Result Performing Organization Address City/State/[facility] Co de Phone Number [facility] [address] [place] [address] * URINALYSIS, COMPLETE INCLUDES DIPSTICK AND MICROSCOPIC (09/18/2018 4:52 PM EDT) Color (Urine) YELLOW YELLOW [facility] Appearance (Urine) CLEAR CLEAR [facility] Specific gravity (Urine) 1.026 1.001 - 1.035 [facility] pH (Urine) 6.0 5.0 - 8.0 [facility] Glucose (Urine) NEGATIVE NEGATIVE [facility] Bilirubin (Urine) NEGATIVE NEGATIVE [facility] Ketones (Urine) NEGATIVE NEGATIVE [facility] Hemoglobin (Urine) NEGATIVE NEGATIVE [facility] Protein (Urine) NEGATIVE NEGATIVE [facility] Nitrite (Urine) NEGATIVE NEGATIVE [facility] Leukocyte esterase (Urine) NEGATIVE NEGATIVE [facility] WBC (Urine) NONE SEEN < OR = 5 /HPF [facility] RBC (Urine Sed) NONE SEEN < OR = 2 /HPF [facility] Epithelial cells.squamous (Urine sed) 0-5 < OR = 5 /HPF [facility] Bacteria (Urine) NONE SEEN NONE SEEN /HPF [facility] Hyaline casts (Urine sed) NONE SEEN NONE SEEN /LPF [facility] 09/18/2018 4:52 PM EDT 09/18/2018 7:00 PM EDT Narrative Resulting Agency Comment [id number] Jose Mcguire MD LAB SAME DAY RESULT Final Resul t [facility] [address] [place] [address] documented in this encounter Visit Diagnoses Diagnosis Frequency of urination Urinary frequency documented in this encounter Additional Health Concerns Infection Onset Date Last Indicated Resolved Time COVID-19 Rule-Out 01/13/2020 01/13/2020 01/13/2020 2:43 PM EST COVID-19 Rule-Out 02/22/2020 02/22/2020 02/22/2020 5:30 PM EST COVID-19 Confirmed 02/22/2020 02/22/2020 1 8:12 PM EDT COVID-19 Confirmed 03/09/2021 03/09/2021 2 8:12 PM EDT documented as of this encounter Care Teams Food Beverage Server Relationship Specialty Start Date End Date Jose Mcguire MD PCP - General Internal Medicine 06/10/15 05/19/19 Vandana Pierce MD PCP - General Family Medicine 05/20/19 08/03/20 Norman Arita MD [address] [place] [address] PCP - General Internal Medicine 08/04/20 03/04/22 documented as of this encounter
--- OUTSIDE RECORDS SUMMARY | 2024-11-13 16:09 | XMS_ITS | Encounter Summary ---
Author Organization [facility] Address [address] [place] [address] Care Team Providers Care Tumbler Operator Name Role Phone Osiris Sanchez MD Primary Care Provider [phone] Jose Mcguire MD Primary Care Provider Gela Vandana Tovar MD Primary Care Provider [phone] Norman Arita MD Primary Care Provider [phone] Encounter Details Date Type Department Care Team (Late st Contact Info) Description 08/17/2014 Orders Only [facility] [address] [place] [address] Osiris Sanchez MD [address] [place] [address] Social History Tobacco Use Types Packs/Day Years [...] Industry Job Start Date Job End Date [employer] Not on file Not on file Not on file documented as of this encounter Progress Notes * Osiris Sanchez - 08/24/2014 12:02 AM EDTQuick Note: I have reviewed the results. Will d/w patient at the upcoming appt.with me 09/01 documented in this encounter Plan of Treatment Not on file documented as of this encounter Procedures * Due to [facility] law, this organization might not be sharing negative HIV tests. Procedure Name Priority Date/Time Associated Diagnosis Comments THYROID CASCADING REFLEX Routine 08/17/2014 8:21 AM EDT Disorder of thyroid LIPID PANEL WITH REFLEX TO DIRECT LDL Routine 08/17/2014 8:21 AM EDT Hyperlipidemia documented in this encounter Results * Due to [place] [employer] law, this organization might not be sharing negative HIV tests. * THYROID CASCADING REFLEX (08/17/2014 8:21 AM EDT) TSH 2.13 mIU/L [facility] Comment: {TSH {[id number]) Reference Range > or = 20 Years 0.40-4.50 Ranges First trimester 0.26-2.66 Second trimester 0.55-2.73 Third trimester 0.43-2.91 INTERPRETATION SEE NOTE [facility] Comment: {INTERPRETATION {[id number]) TSH within normal range. Consistent with euthyroid patient. Interference from heterophilic antibodies (more common) or autoantibody (less common) should be considered when the TSH value does not fit the clinical picture. TSH with HAMA Treatment (test code 69666) or TSH Antibody (test code 83031) may help identify such interferences. 08/17/2014 8:21 AM EDT 08/17/2014 11:01 AM EDT Narrative Resulting Agency Comment [id number] Osiris Sanchez MD LABORATORY Final Result [facility] [address] [place] [address] * (ABNORMAL) LIPID PANEL WITH REFLEX TO DIRECT LDL (08/17/2014 8:21 AM EDT) Cholesterol 236(H) 125 - 200 mg/dL [facility] Comment:{CHOLESTEROL, TOTAL {[id number]) HDL Cholesterol 35(L) > OR = 46 mg/dL [facility] Comment:{HDL CHOLESTEROL {[id number]) Triglyceride 349(H) <150 mg/dL [facility] Comment:{TRIGLYCERIDES {[id number]) LDL Cholesterol 131(H) <130 mg/dL (calc) [facility] Comment: {LDL-CHOLESTEROL {[id number]) Desirable range <100 mg/dL for patients with CHD or diabetes and <70 mg/dL for diabetic patients with known heart disease. CHOL/HDL Ratio 6.7(H) < OR = 5.0 (calc) [facility] Comment:{CHOL/HDLC RATIO {[id number]) Cholesterol Non-HDL 201(H) mg/dL (calc) [facility] Comment: {NON HDL CHOLESTEROL {[id number]) Target for non-HDL cholesterol is 30 mg/dL higher than LDL cholesterol target. 08/17/2014 8:21 AM EDT 08/17/2014 11:01 AM EDT Narrative Resulting Agency Comment [id number] Osiris Sanchez MD LABORATORY Final Result [facility] [address] [place] [address] documented in this encounter Visit Diagnoses Diagnosis [...] documented as of this encounter Care Teams Tumbler Operator Relationship Specialty Start Date End Date Osiris Sanchez MD [address] [place] [address] PCP - General 07/24/06 06/09/15 Jose Mcguire MD PCP - General Internal Medicine 06/10/15 05/19/19 Vandana Pierce MD PCP - General Family Medicine 05/20/19 08/03/20 Norman Arita MD [address] [place] [address] PCP - General Internal Medicine 08/04/20 03/04/22 documented as of this encounter
--- OUTSIDE RECORDS SUMMARY | 2024-11-13 16:09 | XMS_ITS | Encounter Summary ---
Author Organization [facility] Address [address] [place] [address] Care Team Providers Care Package Drier Name Role Phone Osiris Sanchez MD Primary Care Provider [phone] Jose Mcguire MD Primary Care Provider Gela Vandana Tovar MD Primary Care Provider [phone] Norman Arita MD Primary Care Provider [phone] Encounter Details Date Type Department Care Team (Late st Contact Info) Description 03/07/2011 Orders Only [facility] [address] [place] [address] Osiris Sanchez MD [address] [place] [address] Social History Tobacco Use Types Packs/Day Years [...] 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
--- OUTSIDE RECORDS SUMMARY | 2024-11-13 16:09 | XMS_ITS | Encounter Summary ---
Author Organization [facility] Address [address] [place] [address] Care Team Providers Care Cytogenetics Laboratory Manager Name Role Phone Osiris Sanchez MD Primary Care Provider [phone] Jose Mcguire MD Primary Care Provider Gela Vandana Tovar MD Primary Care Provider [phone] Norman Arita MD Primary Care Provider [phone] Reason for Visit * Reason Onset Date Comments Refill Request 07/01/2014 Encounter Details Date Type Department Care Team (Late st Contact Info) Description 07/01/2014 Refill [facility] [address] [place] [address] Codie Edmonds, KANDIS [address] [place] [address] Refill Request Social History Tobacco Use Types [...] Industry Job Start Date Job End Date [employer] Not on file Not on file Not [...] documented as of this encounter Care Teams Cytogenetics Laboratory Manager Relationship Specialty Start Date End Date Osiris Sanchez MD [address] [place] [address] PCP - General 07/24/06 06/09/15 Jose Mcguire MD PCP - General Internal Medicine 06/10/15 05/19/19 Vandana Pierce MD PCP - General Family Medicine 05/20/19 08/03/20 Norman Arita MD [address] [place] [address] PCP - General Internal Medicine 08/04/20 03/04/22 documented as of this encounter
--- OUTSIDE RECORDS SUMMARY | 2024-11-13 16:09 | XMS_ITS | Encounter Summary ---
Author Organization [facility] Address [address] [place] [address] Care Team Providers Care Cylinder Die Machine Operator Name Role Phone Joes Mcguire MD Primary Care Provider Gela Vandana Tovar MD Primary Care Provider [phone] Norman Arita MD Primary Care Provider [phone] Encounter Details Date Type Department Care Team (Late st Contact Info) Description 05/21/2018 Orders Only [facility] [address] [place] [phone] Jose Mcguire MD Social History Tobacco Use [...] of this encounter Results * Due to [place] state law, this organization might not be sharing negative HIV tests. * TSH, 3RD GENERATION (07/16/2018 7:13 AM EDT) TSH 1.71 mIU/L [facility] Comment: Reference Range > or = 20 Years 0.40-4.50 Ranges First trimester 0.26-2.66 Second trimester 0.55-2.73 Third trimester 0.43-2.91 07/16/2018 7:13 AM EDT 07/16/2018 4:52 PM EDT Narrative Resulting Agency Comment [id number] Jose Mcguire MD LABORATORY Final Result [facility] [address] [place] [address] * (ABNORMAL) BASIC METABOLIC PANEL WITH (GFR) (07/16/2018 7:13 AM EDT) Glucose 111(H) 65 - 99 mg/dL [facility] Comment: Fasting reference interval For someone without known diabetes, a glucose value between 100 and 125 mg/dL is consistent with prediabetes and should be confirmed with a follow-up test. Urea Nitrogen Blood (BUN) 11 7 - 25 mg/dL [facility] Creatinine 0.85 0.50 - 1.10 mg/dL [facility] EGFR 80 > OR = 60 mL/min/1. 73m2 [facility] GFR () 93 > OR = 60 mL/min/1. 73m2 [facility] BUN/Creatinine Ratio NOT APPLICABLE 6 - 22 (calc) [facility] Sodium 139 135 - 146 mmol/L [facility] Potassium 4.3 3.5 - 5.3 mmol/L [facility] Chloride 103 98 - 110 mmol/L [facility] Carbon dioxide 26 20 - 32 mmol/L [facility] Calcium 9.4 8.6 - 10.2 mg/dL [facility] 07/16/2018 7:13 AM EDT 07/16/2018 4:52 PM EDT Narrative [facility] - 07/16/2018 9:46 PM EDT Please note that this estimated [...] needs for GFR calculation. Resulting Agency Comment [id number] Jose Mcguire MD LABORATORY Final Result Performing Organization Address City/[facility]/ZIP Co de Phone Number [facility] [address] [place] [address] * (ABNORMAL) LIPID PANEL WITH REFLEX TO DIRECT LDL (07/16/2018 7:13 AM EDT) Cholesterol 225(H) <200 mg/dL [facility] HDL Cholesterol 32(L) >50 mg/dL [facility] Triglyceride 573(H) <150 mg/dL [facility] LDL Cholesterol SEE [...] LDL-C. Junior BASILIO et al. RASHI. 2013;310(19): 3231-6175 (http://education.SmashChart.[employer]/faq/YWA489) CHOL/HDL Ratio 7.0(H) <5.0 (calc) [facility] Cholesterol Non-HDL 193(H) <130 mg/dL (calc) [facility] Comment: For patients with diabetes plus 1 major ASCVD risk factor, treating to a non-HDL-C goal of <100 mg/dL (LDL-C of <70 mg/dL) is considered a therapeutic option. LDL, Direct Measure 113(H) <100 mg/dL [facility] Comment: Desirable range <100 mg/dL for primary prevention; <70 mg/dL for patients with CHD or diabetic patients with > or = 2 CHD risk factors. 07/16/2018 7:13 AM EDT 07/16/2018 4:52 PM EDT Narrative Resulting Agency Comment [id number] Jose Mcguire MD LABORATORY Final Result Performing Organization Address City/[facility]/ZIP Co de Phone Number [facility] [address] [place] [address] documented in this encounter Visit Diagnoses Diagnosis Lipids blood increased Other and unspecified hyperlipidemia Encounter for long-term (current) use of high-risk medication Encounter for long-term (current) use of other medications Disorder of thyroid Unspecified disorder of thyroid Lipids blood increased Other and unspecified hyperlipidemia Encounter for long-term (current) use of high-risk medication Encounter for long-term (current) use of other medications Disorder of thyroid Unspecified disorder of thyroid documented in this encounter Additional Health Concerns Infection Onset Date Last Indicated Resolved Time COVID-19 Rule-Out 01/13/2020 01/13/2020 01/13/2020 2:43 PM EST COVID-19 Rule-Out 02/22/2020 02/22/2020 02/22/2020 5:30 PM EST COVID-19 Confirmed 02/22/2020 02/22/2020 1 8:12 PM EDT COVID-19 Confirmed 03/09/2021 03/09/2021 2 8:12 PM EDT documented as of this encounter Care Teams Cylinder Die Machine Operator Relationship Specialty Start Date End Date Jose Mcguire MD PCP - General Internal Medicine 06/10/15 05/19/19 Vandana Pierce MD PCP - General Family Medicine 05/20/19 08/03/20 Norman Arita MD [address] [place] [address] PCP - General Internal Medicine 08/04/20 03/04/22 documented as of this encounter
--- OUTSIDE RECORDS SUMMARY | 2024-11-13 16:09 | XMS_ITS | Encounter Summary ---
Author Organization [facility] Address [address] [place] [address] Care Team Providers Care Supervisor Game Farm Name Role Phone Jose Mcguire MD Primary Care Provider Vandana Vazquez MD Primary Care Provider [phone] Norman Arita MD Primary Care Provider [phone] Reason for Referral * CONSULT AND TREATMENT (Routine) - Authorized Specialty Diagnoses / Procedures Referred By Adiel tijerina Referred To Contact Ophthalmology Diagnoses Right retinal lattice degeneration Jose Mcguire MD McCabe, Frank, MD [facility] [address] [place] [address] Phone: tel: fax: Referral ID Status Reason Start Date Expiration Date Visits Requested Visits Authorized [id number] Authorized Specialty Services Required 09/13/2018 09/13/2019 1 2 Question Answer When do you want this visit to occur? WITHIN 1 MONTH Appointment with or AP? FIRST AVAILABLE Patient is being referred outside of [facility] for the following reason, however final determination for [id number] requests are made by the Referral Management Department Continuity of active patient care Track Order? No Please provide pertinent patient history. right retinal lattice degneration Where is patient being referred? If NOT Other , it qualifies for Meaningful Use, but first look at comment to right to determine if you need to print and have patient sign Release of Info Electronically Letter Other or Decline - Consent is signed Which provider/facility/agency would you like to refer to? Dr. 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 documented in this encounter Additional Health Concerns Infection Onset Date Last Indicated Resolved Time COVID-19 Rule-Out 01/13/2020 01/13/2020 01/13/2020 2:43 PM EST COVID-19 Rule-Out 02/22/2020 02/22/2020 02/22/2020 5:30 PM EST COVID-19 Confirmed 02/22/2020 02/22/2020 1 8:12 PM EDT COVID-19 Confirmed 03/09/2021 03/09/2021 2 8:12 PM EDT documented as of this encounter Care Teams Supervisor Game Farm Relationship Specialty Start Date End Date Jose Mcguire MD PCP - General Internal Medicine 06/10/15 05/19/19 Vandana Pierce MD PCP - General Family Medicine 05/20/19 08/03/20 Norman Arita MD [address] [place] [address] PCP - General Internal Medicine 08/04/20 03/04/22 documented as of this encounter
--- OUTSIDE RECORDS SUMMARY | 2024-11-13 16:09 | XMS_ITS | Encounter Summary ---
Author Organization [facility] Address [address] [place] [address] Care Team Providers Care Roadability Machine Operator Name Role Phone Jose Mcguire MD Primary Care Provider Vandana Vazquez MD Primary Care Provider [phone] Norman Arita MD Primary Care Provider [phone] Encounter Details Date Type Department Care Team (Late st Contact Info) Description 09/19/2018 Orders Only [facility] [address] [place] [phone] Elizabeth Kim NP [address] [place] [address] Social History Tobacco Use Types Packs/Day Years [...] this encounter Procedures * Due to [place] [email or web address] law, this organization might not be sharing negative HIV tests. Procedure Name Priority Date/Time Associated Diagnosis Comments CHLAMYDIA TRACHOMATIS/N. GONORRHOEAE (GC) RNA, TMA (APTIMA GENITAL SWAB) Routine 09/19/2018 2:11 PM EDT Vaginal itching BV/VAGINITIS PANELDNA PROBE(AFFIRM) Routine 09/19/2018 2:11 PM EDT Vaginal itching HEMOGLOBIN A1C Routine 09/19/2018 2:11 PM EDT Screening for diabetes mellitus documented in this encounter Results * Due to [place] [email or web address] law, this organization might not be sharing negative HIV tests. * HEMOGLOBIN A1C (09/19/2018 2:11 PM EDT) Hemoglobin A1C 5.6 <5.7 % [...] diagnosis of diabetes in children. According to [place] Diabetes Association (ADA) guidelines, hemoglobin A1c <7.0% represents optimal control in non- diabetic patients. Different metrics may apply to specific patient populations. Standards of Medical Care in Diabetes(ADA). Estimated Average Glucose 122 mg/dL (calc) [facility] 09/19/2018 2:11 PM EDT 09/19/2018 10:31 PM EDT Narrative Resulting Agency Comment [id number] us Elizabeth Kim NP LABORATORY Final Result [facility] [address] [place] [address] * CHLAMYDIA TRACHOMATIS/N. GONORRHOEAE (GC) RNA, TMA (APTIMA GENITAL SWAB) (09/19/2018 2:11 PM EDT) Chlamydia trachomatis rRNA NOT DETECTED NOT DETECTED [facility] Neisseria Gonorrhoeae rRNA NOT DETECTED NOT DETECTED [facility] COMMENT SEE NOTE [facility] Comment: This test was performed using the APTIMA COMBO2 Assay ([employer] The analytical performance characteristics of this assay, when used to test [facility] specimens have been determined by [employer]. 09/19/2018 2:11 PM EDT 09/19/2018 10:31 PM EDT Narrative Resulting Agency Comment [id number] Elizabeth Kim NP LABORATORY Final Result Performing Organization Address [facility] Co de Phone Number [facility] [address] [place] [address] * BV/VAGINITIS PANELDNA PROBE (09/19/2018 2:11 PM EDT) Trichomonas vaginalis rRNA (Genital) NOT DETECTED NOT DETECTED [facility] Gardnerella vaginalis rRNA (Genital) NOT DETECTED NOT DETECTED [facility] Yecenia sp rRNA (Vag) NOT DETECTED NOT DETECTED [facility] 09/19/2018 2:11 PM EDT 09/19/2018 10:31 PM EDT Narrative Resulting Agency Comment [id number] Elizabeth Kim GROOVER OPERATOR LABORATORY Final Result Performing Organization Address [facility] de Phone Number [facility] [address] [place] [address] documented in this encounter Visit Diagnoses Diagnosis Vaginal itching Pruritus of genital organs Screening for diabetes mellitus documented in this encounter Additional Health Concerns Infection Onset Date Last Indicated Resolved Time COVID-19 Rule-Out 01/13/2020 01/13/2020 01/13/2020 2:43 PM EST COVID-19 Rule-Out 02/22/2020 02/22/2020 02/22/2020 5:30 PM EST COVID-19 Confirmed 02/22/2020 02/22/2020 1 8:12 PM EDT COVID-19 Confirmed 03/09/2021 03/09/2021 2 8:12 PM EDT documented as of this encounter Care Teams Roadability Machine Operator Relationship Specialty Start Date End Date Jose Mcguire MD PCP - General Internal Medicine 06/10/15 05/19/19 Vandana Pierce MD PCP - General Family Medicine 05/20/19 08/03/20 Norman Arita MD [address] [place] [address] PCP - General Internal Medicine 08/04/20 03/04/22 documented as of this encounter
--- OUTSIDE RECORDS SUMMARY | 2024-11-13 16:09 | XMS_ITS | Encounter Summary ---
Author Organization [facility] Address [address] [place] [address] Care Team Providers Care Fabric Worker Fitter Name Role Phone Osiris Sanchez MD Primary Care Provider [phone] Jose Mcguire MD Primary Care Provider Gela Vandana Tovar MD Primary Care Provider Norman Arita MD Primary Care Provider [phone] Encounter Details Date Type Department Care Team (Late st Contact Info) Description 03/07/2011 Orders Only [facility] [address] [place] [address] Osiris Sanchez MD [address] [place] [address] Social History Tobacco Use Types Packs/Day Years [...] 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 Procedure Name Priority Date/Time Associated Diagnosis Comments URINALYSIS, DIP ONLY STAT (All results called to provider) 03/07/2011 11:39 AM EST UTI (urinary tract infection), uncomplicated CULTURE, URINE, ROUTINE Routine 03/07/2011 11:28 AM EST UTI (urinary tract infection), uncomplicated URINALYSIS, MICROSCOPIC Routine 03/07/2011 11:28 AM EST Vaginitis and vulvovaginitis Pelvic pain syndrome Hyperlipidemia Hypothyroidism documented in this encounter Results * Due to [place] [employer] law, this organization might not be sharing negative HIV tests. * (ABNORMAL) URINALYSIS, DIP ONLY ( SITE STAT ONLY) (03/07/2011 11:39 AM EST) COLOR (URINE) YELLOW [facility] (CLIA# [id number]) APPEARANCE (URINE) CLOUDY(A) [facility] (CLIA# [id number]) SPECIFIC GRAVITY 1.025 1.001 - 1.035 [facility] (CLIA# [id number]) PH (URINE) 6.5 5.0 - 8.0 [facility] (CLIA# [id number]) PROTEIN (URINE) TRACE(A) Neg [facility] (CLIA# [id number]) GLUCOSE (URINE) NEG Neg [facility] (CLIA# [id number]) Ketones (Urine) NEG Neg [facility] (CLIA# [id number]) BILIRUBIN (URINE) NEG Neg [facility] (CLIA# [id number]) BLOOD (URINE) 2+(A) Neg [facility] (CLIA# [id number]) WBC (URINE) 2+(A) Neg [facility] (CLIA# [id number]) NITRITE (URINE) NEG Neg [facility] (CLIA# [id number]) Urine specimen (specimen) 03/07/2011 11:39 AM EST Narrative [facility] (CLIA# [id number]) - 03/07/2011 11:41 AM EST Micro and culture already ordered per provider. us Osiris Sanchez MD LAB SAME DAY RESULT Final Resul t [facility] (CLIA# [id number]) [address] [place] [address] * (ABNORMAL) CULTURE, URINE, ROUTINE (03/07/2011 11:28 AM EST) Bacteria culture (Urine) SEE NOTE(A) [facility] Comment: {CULTURE, URINE, ROUTINE {[id number]) CULTURE, URINE, ROUTINE MICRO NUMBER: [id number] TEST STATUS: FINAL SPECIMEN SOURCE: URINE SPECIMEN QUALITY: ADEQUATE RESULT: 50,000-100,000 CFU/mL of Escherichia coli E.coli INT TYLER AMPICILLIN S <=2 AMP/SULBACTAM [...] Not Reported nn = See Therapy Comments 03/07/2011 11:2 8 AM EST 03/07/2011 9:40 PM EST Narrative Resulting Agency Comment [id number] us Osiris Sanchez MD LABORATORY Final Result Performing Organization Address [facility] de Phone Number [facility] [address] [place] [id number] * (ABNORMAL) URINALYSIS, MICROSCOPIC (03/07/2011 11:28 AM EST) WBC (Urine) > OR = 60(A) < OR = 5 /HPF [facility] Comment:{WBC {[id number]) RBC (Urine Sed) 10-20(A) < OR = 3 /HPF [facility] Comment:{RBC {[id number]) Epithelial cells.squamous (Urine sed) 0-5 < OR = 5 /HPF [facility] Comment:{SQUAMOUS EPITHELIAL CELLS {[id number]) Bacteria (Urine) MANY(A) NONE SEEN /HPF [facility] Comment:{BACTERIA {[id number]) Calcium oxalate crystals (Urine sed) FEW NONE OR FEW /HPF [facility] Comment:{CALCIUM OXALATE CRY STALS {[id number]) Hyaline casts (Urine sed) NONE SEEN NONE SEEN /LPF [facility] Comment:{HYALINE CAST {[id number]) Service comment 01 MODERATE MUCOUS THREADS [facility] Comment:{COMMENTS {[id number]) 03/07/2011 11:2 8 AM EST 03/07/2011 9:40 PM EST Narrative Resulting Agency Comment [id number] us Osiris Sanchez MD LAB SAME DAY RESULT Final Resul t Performing Organization Address [facility] Co de Phone Number [facility] [address] [place] [address] documented in this encounter Visit Diagnoses Diagnosis Vaginitis and vulvovaginitis Vaginitis and vulvovaginitis, unspecified Pelvic pain syndrome Pelvic congestion syndrome Hyperlipidemia Other and unspecified hyperlipidemia Hypothyroidism Unspecified hypothyroidism UTI (urinary tract infection), uncomplicated Urinary tract [...] documented as of this encounter Care Teams Fabric Worker Fitter Relationship Specialty Start Date End Date Osiris Sanchez MD [address] [place] [address] PCP - General 07/24/06 06/09/15 Jose Mcguire MD PCP - General Internal Medicine 06/10/15 05/19/19 Vandana Pierce MD PCP - General Family Medicine 05/20/19 08/03/20 Norman Arita MD [address] [place] [address] PCP - General Internal Medicine 08/04/20 03/04/22 documented as of this encounter
--- OUTSIDE RECORDS SUMMARY | 2024-11-13 16:09 | XMS_ITS | Encounter Summary ---
Author Organization [facility] Address [address] [place] [address] Care Team Providers Care Retail Shift Supervisor Name Role Phone Jose Mcguire MD Primary Care Provider Vandana Vazquez MD Primary Care Provider [phone] Norman Arita MD Primary Care Provider [phone] Encounter Details Date Type Department Care Team (Late st Contact Info) Description 07/16/2018 Orders Only [facility] [address] [place] [phone] Jose Mcguire MD Social History Tobacco Use [...] encounter Procedures * Due to [place] state law, this organization might not be sharing negative HIV tests. Procedure Name Priority Date/Time Associated Diagnosis Comments TSH, 3RD GENERATION Routine 07/16/2018 7 :13 AM EDT Disorder of thyroid LIPID PANEL WITH REFLEX TO DIRECT LDL Routine 07/16/2018 7:13 AM EDT Lipids blood increased BASIC METABOLIC PANEL WITH (GFR) Routine 07/16/2018 7:13 AM EDT Encounter for long-term (current) use of high-risk medication documented in this encounter Results * Due to [place] state law, this organization might not be sharing negative HIV tests. * TSH, 3RD GENERATION (07/16/2018 7:13 AM EDT) TSH 1.71 mIU/L [facility] Comment: Reference Range > or = 20 Years 0.40-4.50 Ranges First trimester 0.26-2.66 Second trimester 0.55-2.73 Third trimester 0.43-2.91 07/16/2018 7:13 AM EDT 07/16/2018 4:52 PM EDT Narrative Resulting Agency Comment [id number] Jose Mcguire MD LABORATORY Final Result Performing Organization Address City/State/[facility] Co de Phone Number [facility] [address] [place] [address] * (ABNORMAL) BASIC METABOLIC PANEL WITH (GFR) [...] needs for GFR calculation. Resulting Agency Comment [id number] Jose Mcguire MD LABORATORY Final Result [facility] [address] [place] [address] * (ABNORMAL) LIPID PANEL WITH REFLEX TO [...] LDL-C. Junior SS et al. RASHI. 2013;310(19): 7558-3310 (http://education.[employer].fflap/faq/YVX051) CHOL/HDL Ratio 7.0(H) <5.0 (calc) [facility] [...] 4:52 PM EDT Narrative Resulting Agency Comment [id number] Jsoe Mcguire MD LABORATORY Final Result [facility] [address] [place] [address] documented in this encounter Visit Diagnoses Diagnosis [...] documented as of this encounter Care Teams Retail Shift Supervisor Relationship Specialty Start Date End Date Jose Mcguire MD PCP - General Internal Medicine 06/10/15 05/19/19 Vandana Pierce MD PCP - General Family Medicine 05/20/19 08/03/20 Norman Arita MD [address] [place] [address] PCP - General Internal Medicine 08/04/20 03/04/22 documented as of this encounter
--- OUTSIDE RECORDS SUMMARY | 2024-11-13 16:09 | XMS_ITS | Encounter Summary ---
Author Organization [facility] Address [address] [place] [address] Care Team Providers Care Mechanism Inspector Name Role Phone Osiris Sanchez MD Primary Care Provider [phone] Jose Mcguire MD Primary Care Provider Gela Vandana Tovar MD Primary Care Provider [phone] Norman Arita MD Primary Care Provider [phone] Encounter Details Date Type Department Care Team (Late st Contact Info) Description 03/07/2011 Orders Only [facility] [address] [place] [address] Osiris Sanchez MD [address] [place] [address] Social History Tobacco Use Types Packs/Day Years [...] 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 * (ABNORMAL) URINALYSIS, DIP ONLY ( SITE STAT ONLY) (03/07/2011 11:39 AM EST) COLOR (URINE) YELLOW [facility] (CLIA# [id number]) APPEARANCE (URINE) CLOUDY(A) [facility] (CLIA# [id number]) SPECIFIC GRAVITY 1.025 1.001 - 1.035 [facility] (CLIA# [id number]) PH (URINE) 6.5 5.0 - 8.0 [facility] (CLIA# [id number]) PROTEIN (URINE) TRACE(A) Neg [facility] (CLIA# [id number]) GLUCOSE (URINE) NEG Neg [facility] (CLIA# [id number]) Ketones (Urine) NEG Neg [facility] (CLIA# [id number]) BILIRUBIN (URINE) NEG Neg [facility] (CLIA# [id number]) BLOOD (URINE) 2+(A) Neg [facility] (CLIA# [id number]) WBC (URINE) 2+(A) Neg [facility] (CLIA# [id number]) NITRITE (URINE) NEG Neg [facility] (CLIA# [id number]) Urine specimen (specimen) 03/07/2011 11:39 AM EST Narrative [facility] (CLIA# [id number]) - 03/07/2011 11:41 AM EST Micro and culture already ordered per provider. us Osiris Sanchez MD LAB SAME DAY RESULT Final Resul t [facility] (CLIA# [id number]) [address] [place] [address] * (ABNORMAL) CULTURE, URINE, ROUTINE (03/07/2011 11:28 AM EST) Bacteria culture (Urine) SEE NOTE(A) [facility] Comment: {CULTURE, URINE, ROUTINE {[id number]) CULTURE, URINE, ROUTINE MICRO NUMBER: [id number] TEST STATUS: FINAL SPECIMEN SOURCE: URINE SPECIMEN [...] 9:40 PM EST Narrative Resulting Agency Comment [id number] Osiris Sanchez MD LABORATORY Final Result Performing Organization Address City/State/[facility] Co de Phone Number [facility] [address] [place] [address] documented in this encounter Visit Diagnoses Diagnosis UTI (urinary tract infection), uncomplicated- Primary Urinary tract infection, site not specified Vaginitis and vulvovaginitis Vaginitis and vulvovaginitis, unspecified [...] documented as of this encounter Care Teams Mechanism Inspector Relationship Specialty Start Date End Date Osiris Sanchez MD [address] [place] [address] PCP - General 07/24/06 06/09/15 Jose Mcguire MD PCP - General Internal Medicine 06/10/15 05/19/19 Vandana Pierce MD PCP - General Family Medicine 05/20/19 08/03/20 Norman Arita MD [address] [place] [address] PCP - General Internal Medicine 08/04/20 03/04/22 documented as of this encounter
--- OUTSIDE RECORDS SUMMARY | 2024-11-13 16:09 | XMS_ITS | Encounter Summary ---
Author Organization [facility] Address [address] [place] [address] Care Team Providers Care Media Analyst Name Role Phone Jose Mcguire MD Primary Care Provider Vandana Vazquez MD Primary Care Provider [phone] Norman Arita MD Primary Care Provider [phone] Encounter Details Date Type Department Care Team ([facility] st Contact Info) Description 07/19/2018 Orders Only [facility] Vascular Surgery [address] [facility] [address] [place] [address] Davis Damon MD [address] [place] [address] Medications Social History Tobacco Use Types Packs/Day [...] as of this encounter Care Teams Media Analyst Relationship Specialty Start Date End Date Jose Mcguire MD PCP - General Internal Medicine 06/10/15 05/19/19 Vandana Pierce MD PCP - General Family Medicine 05/20/19 08/03/20 Norman Arita MD [address] [place] [address] PCP - General Internal Medicine 08/04/20 03/04/22 documented as of this encounter
--- OUTSIDE RECORDS SUMMARY | 2024-11-13 16:09 | XMS_ITS | Encounter Summary ---
Author Organization [facility] Address [address] [place] [address] Care Team Providers Care Anesthesiologist Assistant Name Role Phone Osiris Sanchez MD Primary Care Provider [phone] Jose Mcguire MD Primary Care Provider Gela Vandana Tovar MD Primary Care Provider [phone] Norman Arita MD Primary Care Provider [phone] Encounter Details Date Type Department Care Team ([facility] st Contact Info) Description 06/16/2014 Orders Only [facility] Otolaryngology [address] [facility] [address] [place] [phone] Ashok Méndez MD [address] [place] [address] Social History Tobacco Use Types Packs/Day Years [...] 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 Please send mail results and environmental control sheet. Thanks documented in this encounter Plan of Treatment Not on file documented as of this encounter Procedures * Due to [facility] law, this organization might not be sharing negative HIV tests. Procedure Name Priority Date/Time Associated Diagnosis Comments [facility] Routine 06/16/2014 3:08 PM EDT Nasal congestion documented in this encounter Results * Due to [facility] law, this organization might not be sharing negative HIV tests. * (ABNORMAL) [facility] (06/16/2014 3:08 PM EDT) IgE 137(H) <XM=819 kU/L [facility] Comment:{IMMUNOGLOBULIN E {[id number]) Dayron Grass (G6) IgE <0.35 kU/L [facility] Comment:{DAYRON GRASS (G6) IGE {[id number]) Dayron Grass (G6) Class 0 [facility] Comment:{CLASS {[id number]) Odette Grass(Tenant Magic[facility] centerNew KCBX Blue)(G8) IgE <0.35 kU/L [facility] Comment:{ODETTE GRASS([facility] MED[facility] CENTERPopJam BLUE) (G8) IGE {[id number]) Odette Grass([place] Blue)(G8) Class 0 [facility] Comment:{CLASS {[id number]) Common Ragweed (Short)(W1) IgE 1.30(H) kU/L [facility] Comment:{COMMON RAGWEED (ÁNGELA RT) (W1) IGE {[id number]) Common Ragweed (Short)(W1) Class 2 [facility] Comment:{CLASS {[id number]) Mexican Plantain (W9) IgE <0.35 kU/L [facility] Comment:{TANZANIAN PLANTAIN (W 9) IGE {[id number]) Mexican Plantain (W9) Class 0 [facility] Comment:{CLASS {[id number]) Elaine's Quarters (Goosefoot) (W10) IgE <0.35 kU/L [facility] Comment:{ELAINE'S QUARTERS (GO OSE FOOT) (W10) IGE {[id number]) Elaine's Quarters (Goosefoot) (W10) Class 0 [facility] Comment:{CLASS {[id number]) [place] (T7) IgE 0.76(H) kU/L [facility] Comment:{OAK (T7) IGE {[id number]) [place] (T7) Class 2 [facility] Comment:{CLASS {[id number]) Cat Dander (E1) IgE <0.35 kU/L [facility] Comment:{CAT DANDER (E1) IGE {[id number]) Cat Dander (E1) Class 0 [facility] Comment:{CLASS {[id number]) Dog Dander (E5) IgE <0.35 kU/L [facility] Comment:{DOG DANDER (E5) IGE {[id number]) Dog Dander (E5) Class 0 [facility] Comment:{CLASS {[id number]) Cladosporium Herbarum (M2) IgE <0.35 kU/L [facility] Comment:{CLADOSPORIUM HERBAR UM (M2) IGE {[id number]) Cladosporium Herbarum(M2) Class 0 [facility] Comment:{CLASS {[id number]) Alternaria Alternata (M6) IgE <0.35 kU/L [facility] Comment:{ALTERNARIA ALTERNAT A (M6) IGE {[id number]) Alternaria Alternata (M6) Class 0 [facility] Comment:{CLASS {[id number]) House Dust (Uzma-Elly) (H2) IgE <0.35 kU/L [facility] Comment:{HOUSE DUST (HOLLIST ER- ELLY) (H2) IGE {[id number]) House Dust ([place]-Elly) (H2) Class 0 [facility] Comment:{CLASS {[id number]) Dermatophagoides Farinae(D2) IgE 1.37(H) kU/L [facility] Comment:{DERMATOPHAGOIDES FA RINAE (D2) IGE {[id number]) Dermatophagoides Farinae(D2) Class 2 [facility] Comment:{CLASS {[id number]) 06/16/2014 3:08 PM EDT 06/16/2014 7:13 PM EDT Ashok Méndez MD LABORATORY Final Result Performing Organization Address City/State/[facility] Co de Phone Number [facility] [address] [place] [address] documented in this encounter Visit Diagnoses Diagnosis Nasal congestion Other diseases of nasal cavity and sinuses documented in this encounter Additional Health Concerns Infection Onset Date Last Indicated Resolved Time COVID-19 Rule-Out 01/13/2020 01/13/2020 01/13/2020 2:43 PM EST COVID-19 Rule-Out 02/22/2020 02/22/2020 02/22/2020 5:30 PM EST COVID-19 Confirmed 02/22/2020 02/22/2020 1 8:12 PM EDT COVID-19 Confirmed 03/09/2021 03/09/2021 2 8:12 PM EDT documented as of this encounter Care Teams Anesthesiologist Assistant Relationship Specialty Start Date End Date Osiris Sanchez MD [address] [place] [address] PCP - General 07/24/06 06/09/15 Jose Mcguire MD PCP - General Internal Medicine 06/10/15 05/19/19 Vandana Pierce MD PCP - General Family Medicine 05/20/19 08/03/20 Norman Arita MD [address] [place] [address] PCP - General Internal Medicine 08/04/20 03/04/22 documented as of this encounter
--- OUTSIDE RECORDS SUMMARY | 2024-11-13 16:09 | XMS_ITS | Encounter Summary ---
Author Organization [facility] Address [address] [place] [address] Care Team Providers Care Anthropometrist Name Role Phone Jose Mcguire MD Primary Care Provider Vandana Vazquez MD Primary Care Provider Norman Arita MD Primary Care Provider [phone] Encounter Details Date Type Department Care Team (Late st Contact Info) Description 08/23/2018 Orders Only [facility] General Surgery [address] [facility] [address] [place] [address] Dai Albrecht NP Social History Tobacco Use Types Packs/Day Years [...] documented as of this encounter Care Teams Anthropometrist Relationship Specialty Start Date End Date Jose Mcguire MD PCP - General Internal Medicine 06/10/15 05/19/19 Vandana Pierce MD PCP - General Family Medicine 05/20/19 08/03/20 Norman Arita MD [address] [place] [facility] [place] [address] PCP - General Internal Medicine 08/04/20 03/04/22 documented as of this encounter
--- OUTSIDE RECORDS SUMMARY | 2024-11-13 16:09 | XMS_ITS | Encounter Summary ---
Author Organization [facility] Address [address] [place] [address] Care Team Providers Care Chemical Equipment Controller Name Role Phone Jose Mcguire MD Primary Care Provider Vandana Vazquez MD Primary Care Provider [phone] Norman Arita MD Primary Care Provider [phone] Encounter Details Date Type Department Care Team (Late st Contact Info) Description 12/10/2018 Orders Only [facility] [address] [place] [phone] Jose Mcguire MD Social History Tobacco Use [...] encounter Progress Notes * Jose Mcguire - 12/10/2018 9:29 AM EDT . * Jose Mcguire - 12/10/2018 9:29 AM EDT . documented in this encounter Plan of Treatment Not on file documented as of this encounter Procedures * Due to [place] [employer] law, this organization might not be sharing negative HIV tests. Procedure Name Priority Date/Time Associated Diagnosis Comments VENIPUNCTURE Routine 12/10/2018 9:29 AM EDT Hyperlipidemia, unspecified hyperlipidemia type documented in this encounter Results * Due to [place] [employer] law, this organization might not be sharing negative HIV tests. * (ABNORMAL) LIPID PANEL WITH REFLEX TO DIRECT LDL (12/10/2018 9:29 AM EDT) Cholesterol 185 <200 mg/dL [facility] HDL Cholesterol 38(L) >50 mg/dL [facility] Triglyceride 370(H) <150 mg/dL [facility] Comment: If a non-fasting specimen was collected, consider repeat triglyceride testing on a fasting specimen if clinically indicated. Marie et al. J. of Clin. Lipidol. 2015;9:129-169. LDL Cholesterol 98 mg/dL (calc) [facility] Comment: Reference range: [...] LDL-C. Junior BASILIO et al. RASHI. 2013;310(19): 1106-4684 (http://education.[employer]/faq/JIZ299) CHOL/HDL Ratio 4.9 <5.0 (calc) [facility] Cholesterol Non-HDL 147(H) <130 mg/dL (calc) [facility] Comment: For patients with diabetes plus 1 major ASCVD risk factor, treating to a non-HDL-C goal of <100 mg/dL (LDL-C of <70 mg/dL) is considered a therapeutic option. 12/10/2018 9:29 AM EDT 12/10/2018 11:49 AM EDT Narrative Resulting Agency Comment [id number] Jose Mcguire MD LABORATORY Final Result [facility] [address] [place] [address] documented in this encounter Visit Diagnoses Diagnosis [...] documented as of this encounter Care Teams Chemical Equipment Controller Relationship Specialty Start Date End Date Jose Mcguire MD PCP - General Internal Medicine 06/10/15 05/19/19 Vandana Pierce MD PCP - General Family Medicine 05/20/19 08/03/20 Norman Arita MD [address] [place] [address] PCP - General Internal Medicine 08/04/20 03/04/22 documented as of this encounter
--- OUTSIDE RECORDS SUMMARY | 2024-11-13 16:09 | XMS_ITS | Encounter Summary ---
Author Organization [facility] Address [address] [place] [address] Care Team Providers Care Lead Electrical Controls Engineer Name Role Phone Osiris Sanchez MD Primary Care Provider [phone] Jose Mcguire MD Primary Care Provider Gela Vandana Tovar MD Primary Care Provider [phone] Norman Arita MD Primary Care Provider [phone] Encounter Details Date Type Department Care Team (Late st Contact Info) Description 09/01/2014 Orders Only [facility] [address] [place] [address] Osiris Sanchez MD [address] [place] [address] Social History Tobacco Use Types Packs/Day Years [...] 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 Procedure Name Priority Date/Time Associated Diagnosis Comments EKG-TO BE READ & BILLED BY ADULT OR PEDIATRIC CARDIOLOGY Routine 09/01/2014 8:48 AM EDT Tachycardia documented in this encounter Results * Due to [place] [employer] law, this organization might not be sharing negative HIV tests. * EKG-TO BE READ AND BILLED BY CARDIOLOGY (09/01/2014 8:48 AM EDT) VENTRICULAR RATE 94 BPM MUS E EKG SYSTEM ATRIAL RATE 94 BPM MUSE EKG SYSTEM P-R INTERVAL 138 ms MUSE EK G SYSTEM QRS DURATION 82 ms MUSE EK G SYSTEM QT 374 ms MUSE EKG SYSTEM QTC 467 ms MUSE EKG SYSTEM P AXIS 27 degrees MUSE EKG SYSTEM R AXIS 10 degrees MUSE EKG SYSTEM T AXIS 34 degrees MUSE EKG SYSTEM EKG INTERPRETATION Normal sinus rhythm Normal ECG MUSE EKG SYSTEM 09/01/2014 8:48 AM EDT 09/03/2014 10:30 PM EDT us Osiris Sanchez MD CARDIOVASCULAR-WITH INBSKT RTG Final Result MUSE EKG SYSTEM documented in this encounter Visit Diagnoses Diagnosis Tachycardia Tachycardia, unspecified documented in this encounter Additional Health Concerns Infection Onset Date Last Indicated Resolved Time COVID-19 Rule-Out 01/13/2020 01/13/2020 01/13/2020 2:43 PM EST COVID-19 Rule-Out 02/22/2020 02/22/2020 02/22/2020 5:30 PM EST COVID-19 Confirmed 02/22/2020 02/22/2020 1 8:12 PM EDT COVID-19 Confirmed 03/09/2021 03/09/2021 2 8:12 PM EDT documented as of this encounter Care Teams Lead Electrical Controls Engineer Relationship Specialty Start Date End Date Osiris Sanchez MD [address] [place] [address] PCP - General 07/24/06 06/09/15 Jose Mcguire MD PCP - General Internal Medicine 06/10/15 05/19/19 Vandana Pierce MD PCP - General Family Medicine 05/20/19 08/03/20 Norman Arita MD [address] [place] [address] PCP - General Internal Medicine 08/04/20 03/04/22 documented as of this encounter
== END 2024-11-13 11:43 | disposition home or self-care (01) ==
LOC: HO.HHCL 11:42
PROVIDERS: PCP Internal Medicine; Visit Provider Family Medicine
DX: R10.13 Epigastric pain (principal)
CPT/HCPCS: 36415; 80053; 82150; 83690; 85025

== ENCOUNTER 2024-11-14 08:04 | Outpatient (REF) | payer MEDICAID, SELFPAY ==
--- OUTSIDE RECORDS SUMMARY | 2024-11-13 11:20 | XMS_ITS | Encounter Summary ---
Author Organization [employer] Address [address] [place] [address] Care Team Providers Care Ceramic Painter Name Role Phone Tee Thomas MD Primary Care Prov ider Reason for Visit * Reason Comments Abdominal Pain Nausea Encounter Details Date Type Department Care Team ([facility] st Contact Info) Description 11/13/2024 11:20 AM EDT Office Visit [facility] [address] [place] [phone] Kory Hammonds MD [address] [place] [phone] Epigastric pain (Primary Dx) Social History Tobacco [...] lifestyle modification. Previously had EGD x2 in [place] (07/18/2022) and [facility] (06/07/2021) when she was diagnosed with hiatal hernia and erosive gastritis. Denies current GERD symptoms. Also had screening colonoscopy (07/18/2022). Was advised to repeat in 5 years. History of abdominal hysterectomy (2002) due to fibroids and endometriosis. Subsequently had BSO (2004), then laparoscopic lysis of adhesions (2005). 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 Objective Vitals: 11/13/24 1050 BP: 131/80 BP [...] BID for 14 days. Patient presents to [facility] due to epigastric abdominal pain started this [...] EDT) Lipase 25 8 - 78 U/L [facility] Blood Venous blood specimen / Unknown 11/13/2024 11:52 AM EDT 11/13/2024 1:03 PM EDT Kory Hammonds MD LAB BLOOD ORDERABLES Final Resul t Performing Organization Address [facility] Co de Phone Number [facility] [address] [place] [phone] * Amylase (11/13/2024 11:52 AM EDT) Amylase 78 28 - 100 U/L [facility] Blood Venous blood specimen / Unknown 11/13/2024 11:52 AM EDT 11/13/2024 1:03 PM EDT us Kory Hammonds MD LAB BLOOD ORDERABLES Final Resul t Performing Organization Address [facility] de Phone Number [facility] [address] [place] [phone] * (ABNORMAL) Comprehensive Metabolic Panel (11/13/2024 [...] Kidney Disea se: Estimated GFR < 60 mL/min/[id number] Kidney Disease: Estimated GFR < 15 mL/min/1.73m2 [...] Resul t [facility] [address] [place], [place] [phone] * (ABNORMAL) CBC auto differential (11/13/2024 [...] Resul t [facility] [address] [place] [phone] documented in this encounter Visit Diagnoses Diagnosis Epigastric pain- Primary Abdominal pain, epigastric documented in this encounter Additional Health Concerns Assessment Noted Time PHQ-9 Depression Total Score: 0 09/13/19 25 9:51 AM EDT documented as of this encounter Care Teams Ceramic Painter Relationship Specialty Start Date End Date Tee Thomas MD [address] [place] [phone] PCP - General Internal Medicine 06/25/24 documented as of this encounter
--- NOTE | ~2024-11-14 | US_ITS ---
EXAMINATION: US ABDOMEN COMPLETE WITH LIVER ELASTOGRAPHY HISTORY: NONALCOHOLIC STEATOHEPATITIS TECHNIQUE: Real-time grayscale ultrasound imaging of the abdomen was performed and images were reviewed. COMPARISON: There are no prior studies available for comparison. FINDINGS: Liver: The right lobe of the liver measures 13.8 cm in size. The left lobe of the liver measures 8.8 cm in size. The liver demonstrates normal homogeneous echotexture. No focal mass or intrahepatic biliary ductal dilatation is identified. There is normal hepatopedal flow in the portal vein. Ultrasound elastography of the liver was performed with 10 separate measurements of the liver parenchyma with the patient in the supine position. Measurements were obtained approximately 2 cm below Summer's capsule and perpendicular to the capsule. The median shear wave velocity is 1.52 m/s. The interquartile range/median (IQR/median) is 0.09. Gallbladder and biliary tree: The gallbladder is unremarkable, without evidence of calculi, wall thickening, or pericholecystic fluid. There is no sonographic Deleon sign. The common bile duct is normal in caliber measuring 3 mm. Kidneys: The right kidney measures 10.1 cm in length. The left kidney measures 10.2 cm in length. The kidneys are unremarkable, without evidence of masses, hydronephrosis, or calculi. Pancreas: The pancreatic head, neck, and body are unremarkable. The pancreatic tail is obscured by bowel gas. Spleen: The spleen is normal in size and contour, measuring 9.5 cm in length. Abdominal aorta and inferior vena cava: The visualized portions of the abdominal aorta and inferior vena cava are normal in caliber. There is no free fluid in the abdomen. US/US abdomen comp w elastography IMPRESSION: Unremarkable abdominal ultrasound. The median shear wave velocity in the liver is 1.52 m/s, corresponding to a median liver stiffness of 7.15 kPa. The IQR/median value is 0.09. This is indicative of a quality data set. Findings are indicative of a low elastography value which rules out advanced chronic liver disease in asymptomatic patients. REFERENCE: Society of Radiologists in Ultrasound Liver Stiffness Thresholds (2019): LIVER STIFFNESS THRESHOLDS: *Shear wave velocity less than 1.3 m/s (Liver Stiffness equal or less than 5 kPa): High probability of being normal. *Shear wave velocity less than 1.7 m/s (Liver Stiffness less than 9 kPa): In the absence of other known clinical signs, rules out compensated advanced chronic liver disease. *Shear wave velocity between 1.7-2.1 m/s (Liver Stiffness 9-13 kPa): Suggestive of compensated advanced chronic liver disease but need further test for confirmation. *Shear wave velocity between 2.1-2.4 m/s (Liver Stiffness 13-17 kPa): Rules in compensated advanced chronic liver disease. *Shear wave velocity greater than 2.4 m/s (Liver Stiffness over 17 kPa): Suggestive of clinically significant portal hypertension. QUALITY OF DATA SET: *IQR/Median value equal or less than 0.15 implies a quality data set. *IQR/Median value over 0.15 implies a poor quality data set. SIGNIFICANT CHANGE FROM PRIOR EXAM: Significant change if liver stiffness measurement is 10% or greater from prior exam. OTHER CONSIDERATIONS: The stage of liver fibrosis may be overestimated in the setting of acute hepatitis, liver inflammation, elevated liver function tests, hepatic vascular congestion, obstructive cholestasis, non-fasting state, and infiltrative diseases such as amyloidosis and lymphoma. In some patients with NAFLD, the liver stiffness thresholds for compensated advanced chronic liver disease may be lower. In causes other than viral hepatitis and NAFLD, liver stiffness thresholds are not well established. Electronically signed by: Anthony Galindo MD 11/14/2024 09:32 AM EDT
--- OUTSIDE RECORDS SUMMARY | 2024-11-14 08:10 | XMS_ITS | Encounter Summary ---
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 * CULTURE, URINE (11/02/2006) URINE CULTURE CLEAN VOID SEE TEXT [facility] (CLIA# [id number]) Comment: SOURCE: URINE NO GROWTH 11/02/2006 11/02/2006 4:1 2 PM EDT Jose Mcguire MD LABORATORY Final Result Performing Organization Address [facility]/ZIP Co de Phone Number [facility] (CLIA# [id number]) [address] [place] [address] * URINALYSIS, DIP ONLY ( SITE STAT ONLY) (11/02/2006) COLOR (URINE) YELLOW YELLOW [facility] (CLIA# [id number]) APPEARANCE (URINE) CLEAR CLEAR [facility] (CLIA# [id number]) SPECIFIC GRAVITY 1.020 1.001 - 1.035 [facility] (CLIA# [id number]) PH (URINE) 6.0 5.0 - 8.0 [facility] (CLIA# [id number]) PROTEIN (URINE) TRACE NEG [facility] (CLIA# [id number]) GLUCOSE (URINE) NEG NEG [facility] (CLIA# [id number]) Ketones (Urine) NEG NEG [facility] (CLIA# [id number]) BILIRUBIN (URINE) NEG NEG [facility] (CLIA# [id number]) BLOOD (URINE) TRACE NEG [facility] (CLIA# [id number]) WBC (URINE) TRACE NEG [facility] (CLIA# [id number]) NITRITE (URINE) NEG NEG [facility] (CLIA# [id number]) 11/02/2006 11/02/2006 4:1 2 PM EDT Jose Mcguire MD LAB SAME DAY RESULT Final Resul t [facility] (CLIA# [id number]) [address] [place] [address] documented in this encounter Visit Diagnoses Diagnosis DYSURIA- Primary Dysuria documented in this encounter Additional Health Concerns Infection Onset Date Last Indicated Resolved Time COVID-19 Rule-Out 01/13/2020 01/13/2020 01/13/2020 2:43 PM EST COVID-19 Rule-Out 02/22/2020 02/22/2020 02/22/2020 5:30 PM EST COVID-19 Confirmed 02/22/2020 02/22/2020 1 8:12 PM EDT COVID-19 Confirmed 03/09/2021 03/09/2021 2 8:12 PM EDT documented as of this encounter Care Teams It Application Support Analyst Relationship Specialty Start Date End Date Osiris Sanchez MD [address] [place] [address] PCP - General 07/24/06 06/09/15 Jose Mcguire MD PCP - General Internal Medicine 06/10/15 05/19/19 Vandana Pierce MD PCP - General Family Medicine 05/20/19 08/03/20 Norman Arita MD [address] [place] [address] PCP - General Internal Medicine 08/04/20 03/04/22 documented as of this encounter
--- OUTSIDE RECORDS SUMMARY | 2024-11-14 08:10 | XMS_ITS | Encounter Summary ---
Author Organization [facility] Address [address] [place] [address] Care Team Providers Care Upholsterer Apprentice Name Role Phone Osiris Sanchez MD Primary Care Provider [phone] Jose Mcguire MD Primary Care Provider Gela Vandana Tovar MD Primary Care Provider Norman Arita MD Primary Care Provider [phone] Encounter Details Date Type Department Care Team (Late st Contact Info) Description 10/03/2011 Orders Only [facility] [address] [place] [address] Osiris Sanchez MD [address] [place] [address] Social History Tobacco Use Types Packs/Day Years [...] 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 * (ABNORMAL) URINALYSIS, DIP ONLY ( SITE STAT ONLY) (10/03/2011 11:31 AM EDT) COLOR (URINE) YELLOW [facility] (CLIA# [id number]) APPEARANCE (URINE) CLEAR [facility] (CLIA# [id number]) SPECIFIC GRAVITY 1.015 1.001 - 1.035 [facility] (CLIA# [id number]) PH (URINE) 7.0 5.0 - 8.0 [facility] (CLIA# [id number]) PROTEIN (URINE) TRACE(A) Neg [facility] (CLIA# [id number]) GLUCOSE (URINE) NEGATIVE Neg [facility] (CLIA# [id number]) Ketones (Urine) NEGATIVE Neg [facility] (CLIA# [id number]) BILIRUBIN (URINE) NEGATIVE Neg [facility] (CLIA# [id number]) BLOOD (URINE) 3+(A) Neg [facility] (CLIA# [id number]) WBC (URINE) 3+(A) Neg [facility] (CLIA# [id number]) NITRITE (URINE) NEGATIVE Neg [facility] (CLIA# [id number]) Urine specimen (specimen) 10/03/2011 11:31 AM EDT Narrative [facility] (CLIA# [id number]) - 10/03/2011 11:32 AM EDT Culture already ordered per provider. Micro added. us Osiris Sanchez MD LAB SAME DAY RESULT Final Resul t Performing Organization Address [facility] de Phone Number [facility] (CLIA# [id number]) [address] [place] [address] * (ABNORMAL) URINALYSIS, MICROSCOPIC (10/03/2011 11:23 AM EDT) WBC (Urine) > OR = 60(A) < OR = 5 /HPF [facility] Comment:{WBC {[id number]) RBC (Urine Sed) > OR = 60(A) < OR = 3 /HPF [facility] Comment:{RBC {[id number]) Epithelial cells.squamous (Urine sed) 0-5 < OR = 5 /HPF [facility] Comment:{SQUAMOUS EPITHELIAL CELLS {[id number]) Bacteria (Urine) NONE SEEN NONE SEEN /HPF [facility] Comment:{BACTERIA {[id number]) Hyaline casts (Urine sed) NONE SEEN NONE SEEN /LPF [facility] Comment:{HYALINE CAST {[id number]) 10/03/2011 11:2 3 AM EDT 10/03/2011 5:49 PM EDT Narrative Resulting Agency Comment [id number] us Osiris Sanchez MD LAB SAME DAY RESULT Final Resul t Performing Organization Address [facility] Co de Phone Number [facility] [address] [place] [address] * (ABNORMAL) CULTURE, URINE, ROUTINE (10/03/2011 11:23 AM EDT) Bacteria culture (Urine) SEE NOTE(A) [facility] Comment: {CULTURE, URINE, ROUTINE {[id number]) CULTURE, URINE, ROUTINE MICRO NUMBER: [id number] TEST STATUS: FINAL SPECIMEN SOURCE: URINE SPECIMEN [...] 5:49 PM EDT Narrative Resulting Agency Comment [id number] Osiris Sanchez MD LABORATORY Final Result Performing Organization Address [facility] Co de Phone Number [employer] [address] [place] [address] documented in this encounter Visit Diagnoses Diagnosis [...] documented as of this encounter Care Teams Upholsterer Apprentice Relationship Specialty Start Date End Date Osiris Sanchez MD [address] [place] [address] PCP - General 07/24/06 06/09/15 Jose Mcguire MD PCP - General Internal Medicine 06/10/15 05/19/19 Vandana Pierce MD PCP - General Family Medicine 05/20/19 08/03/20 Norman Arita MD [address] [place] [address] PCP - General Internal Medicine 08/04/20 03/04/22 documented as of this encounter
--- OUTSIDE RECORDS SUMMARY | 2024-11-14 08:10 | XMS_ITS | Encounter Summary ---
Author Organization [facility] Address [address] [place] [address] Care Team Providers Care Manager Of Financial Planning Name Role Phone Osiris Sanchez MD Primary Care Provider [phone] Jose Mcguire MD Primary Care Provider Gela Vandana Tovar MD Primary Care Provider [phone] Norman Arita MD Primary Care Provider [phone] Encounter Details Date Type Department Care Team (Late st Contact Info) Description 01/16/2012 Orders Only May Internal Medicine [address] [place] [address] Osiris Sanchez MD [address] [place] [address] Social History Tobacco Use Types Packs/Day Years [...] 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 documented in this encounter Plan of Treatment Not on file documented as of this encounter Procedures * Due to [place] [employer] law, this organization might not be sharing [...] this encounter Results * Due to [place] [employer] law, this organization might not be sharing negative HIV tests. * (ABNORMAL) URINALYSIS, DIP ONLY ( SITE STAT ONLY) (01/16/2012 1:00 PM EST) COLOR (URINE) yellow [facility] (CLIA# [id number]) APPEARANCE (URINE) clear [facility] (CLIA# [id number]) SPECIFIC GRAVITY 1.020 1.001 - 1.035 [facility] (CLIA# [id number]) PH (URINE) 5.0 5.0 - 8.0 [facility] (CLIA# [id number]) PROTEIN (URINE) trace(A) Neg [facility] (CLIA# [id number]) GLUCOSE (URINE) negative Neg [facility] (CLIA# [id number]) Ketones (Urine) negative Neg [facility] (CLIA# [id number]) BILIRUBIN (URINE) negative Neg [facility] (CLIA# [id number]) BLOOD (URINE) trace(A) Neg [facility] (CLIA# [id number]) WBC (URINE) negative Neg [facility] (CLIA# [id number]) NITRITE (URINE) negative Neg [facility] (CLIA# [id number]) Urine specimen (specimen) 01/16/2012 1:00 PM EST Narrative [facility] (CLIA# [id number]) - 01/16/2012 1:01 PM EST Culture already ordered per provider. Micro added. Osiris Sanchez MD LAB SAME DAY RESULT Final Resul t Performing Organization Address City/[facility]/ZIP Co de Phone Number [facility] (CLIA# [id number]) [address] [place] [address] * URINALYSIS, MICROSCOPIC (01/16/2012 12:55 PM EST) WBC (Urine) 0-5 < OR = 5 /HPF [facility] Comment:{WBC {[id number]) RBC (Urine Sed) NONE SEEN < OR = 3 /HPF [facility] Comment:{RBC {[id number]) Epithelial cells.squamous (Urine sed) 0-5 < OR = 5 /HPF [facility] Comment:{SQUAMOUS EPITHELIAL CELLS {[id number]) Bacteria (Urine) NONE SEEN NONE SEEN /HPF [facility] Comment:{BACTERIA {[id number]) Hyaline casts (Urine sed) NONE SEEN NONE SEEN /LPF [facility] Comment:{HYALINE CAST {[id number]) 01/16/2012 12:5 5 PM EST 01/16/2012 7:47 PM EST Narrative Resulting Agency Comment [id number] Osiris Sanchez MD LAB SAME DAY RESULT Final Resul t [facility] [address] [place] [address] * CULTURE, URINE, ROUTINE (01/16/2012 12:55 PM EST) Bacteria culture (Urine) SEE NOTE [facility] Comment: {CULTURE, URINE, ROUTINE {[id number]) CULTURE, URINE, ROUTINE MICRO NUMBER: [id number] TEST STATUS: FINAL SPECIMEN SOURCE: URINE SPECIMEN QUALITY: ADEQUATE RESULT: No Growth 01/16/2012 12:5 5 PM EST 01/16/2012 7:47 PM EST Narrative Resulting Agency Comment [id number] Osiris Sanchez MD LABORATORY Final Result Performing Organization Address City/State/[facility] de Phone Number [facility] [address] [place] [address] documented in this encounter Visit Diagnoses Diagnosis [...] as of this encounter Care Teams Manager Of Financial Planning Relationship Specialty Start Date End Date Osiris Sanchez MD [address] [place] [address] PCP - General 07/24/06 06/09/15 Jose Mcguire MD PCP - General Internal Medicine 06/10/15 05/19/19 Vandana Pierce MD PCP - General Family Medicine 05/20/19 08/03/20 Norman Arita MD [address] [place] [address] PCP - General Internal Medicine 08/04/20 03/04/22 documented as of this encounter
--- OUTSIDE RECORDS SUMMARY | 2024-11-14 08:10 | XMS_ITS | Encounter Summary ---
Author Organization [facility] Address [address] [place] [address] Care Team Providers Care Brand Advocate Name Role Phone Jose Mcguire MD Primary Care Provider Gela Vandana Tovar MD Primary Care Provider Norman Arita MD Primary Care Provider [phone] Encounter Details Date Type Department Care Team (Late Contact Info) Description 05/31/2016 Orders Only July Internal Medicine [address] [place] [address] Jose Mcguire MD Social History Tobacco Use [...] documented as of this encounter Care Teams Brand Advocate Relationship Specialty Start Date End Date Jose Mcguire MD PCP - General Internal Medicine 06/10/15 05/19/19 Vandana Pierce MD PCP - General Family Medicine 05/20/19 08/03/20 Norman Arita MD [address] [place] [address] PCP - General Internal Medicine 08/04/20 03/04/22 documented as of this encounter
--- OUTSIDE RECORDS SUMMARY | 2024-11-14 08:10 | XMS_ITS | Encounter Summary ---
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 * URINALYSIS,MICROSCOPIC ONLY (11/02/2006) WBC (URINE) 0-4 0-4/HPF [facility] (CLIA# [id number]) RBC (Urine Sed) 0 0-3/HPF [facility] (CLIA# [id number]) EPITHELIAL CELLS.SQUAMOUS (URINE SED) 0-5 0-5/HPF [facility] (CLIA# [id number]) EPITHELIAL CELLS.TRANSITIO NAL (URINE SED) 0 0-5/HPF [facility] (CLIA# [id number]) EPITHELIAL CELLS.RENAL (URINE SED) 0 0-3/HPF [facility] (CLIA# [id number]) BACTERIA (URINE) NONE SEEN NONE SEEN [facility] (CLIA# [id number]) 11/02/2006 11/02/2006 4:1 2 PM EDT us Jose Mcguire MD LAB SAME DAY RESULT Final Resul t [facility] (CLIA# [id number]) [address] [place] [address] * GC DNA PROBE (GEN-PROBE, GC) (11/02/2006) [facility] GC DNA PROBE SEE TEXT [facility] (CLIA# [id number]) Comment: SOURCE: ENDOCERVIX NEGATIVE 11/02/2006 11/02/2006 4:0 4 PM EDT Jose Mcguire MD LABORATORY Final Result [facility] (CLIA# [id number]) [address] [place] [address] * (ABNORMAL) CHANI PREP (11/02/2006) [facility] FUNGUS (CHANI WET PREP) SEE TEXT(A) [facility] (CLIA# [id number]) Comment: SOURCE: UNKNOWN YEAST, POSITIVE NO CLUE CELLS PRESENT 11/02/2006 11/02/2006 4:0 4 PM EDT Jose Mcguire MD LABORATORY Final Result Performing Organization Address City/[facility]/ZIP Co de Phone Number [facility] (CLIA# [id number]) [address] [place] [address] * CHLAMYDIA TRACHOMATIS/N. GONORRHOEAE, DNA, SDA (11/02/2006) [facility] CHLAMYDIA TRACHOMATIS DNA TNP [facility] (CLIA# [id number]) NEISSERIA GONORRHOEAE DNA TNP [facility] (CLIA# [id number]) 11/02/2006 11/02/2006 4:0 4 PM EDT Jose Mcguire MD LABORATORY Final Result [facility] (CLIA# [id number]) [address] [place] [address] * BASIC METABOLIC PANEL (11/02/2006) CALCIUM 9.4 8.6 - 10.2 MG/DL [facility] (CLIA# [id number]) BUN 7 7 - 25 MG/DL [facility] (CLIA# [id number]) CREATININE 0.7 0.5 - 1.2 MG/DL [facility] (CLIA# [id number]) BUN/Creatinine Ratio 10 6 - [address] [facility] (CLIA# [id number]) Glucose 82 65 - 99 MG/DL [facility] (CLIA# [id number]) SODIUM 139 135 - 146 MMOL/L [facility] (CLIA# [id number]) POTASSIUM 3.8 3.5 - 5.3 MMOL/L [facility] (CLIA# [id number]) CHLORIDE 105 98 - 110 MMOL/L [facility] (CLIA# [id number]) CARBON DIOXIDE 24 21 - 33 MMOL/L [facility] (CLIA# [id number]) 11/02/2006 11/02/2006 4:0 4 PM EDT Jose Mcguire MD LAB SAME DAY RESULT Final Resul t Performing Organization Address City/[facility]/ZIP Co de Phone Number [facility] (CLIA# [id number]) [address] [place] [address] * CULTURE, URINE (11/02/2006) URINE CULTURE CLEAN VOID SEE TEXT [facility] (CLIA# [id number]) Comment: SOURCE: URINE NO GROWTH 11/02/2006 11/02/2006 4:1 2 PM EDT Jose Mcguire MD LABORATORY Final Result Performing Organization Address City/[facility]/ZIP Co de Phone Number [facility] (CLIA# [id number]) [address] [place] [address] * URINALYSIS, DIP ONLY ( SITE STAT ONLY) (11/02/2006) COLOR (URINE) YELLOW YELLOW [facility] (CLIA# [id number]) APPEARANCE (URINE) CLEAR CLEAR [facility] (CLIA# [id number]) SPECIFIC GRAVITY 1.020 1.001 - 1.035 [facility] (CLIA# [id number]) PH (URINE) 6.0 5.0 - 8.0 [facility] (CLIA# [id number]) PROTEIN (URINE) TRACE NEG FC [facility] (CLIA# [id number]) GLUCOSE (URINE) NEG NEG FC [facility] (CLIA# [id number]) Ketones (Urine) NEG NEG FC [facility] (CLIA# [id number]) BILIRUBIN (URINE) NEG NEG [facility] (CLIA# [id number]) BLOOD (URINE) TRACE NEG [facility] (CLIA# [id number]) WBC (URINE) TRACE NEG [facility] (CLIA# [id number]) NITRITE (URINE) NEG NEG FC [facility] (CLIA# [id number]) 11/02/2006 11/02/2006 4:1 2 PM EDT Jose Mcguire MD LAB SAME DAY RESULT Final Resul t [facility] (CLIA# [id number]) [address] [place] [address] documented in this encounter Visit Diagnoses Diagnosis [...] as of this encounter Care Teams Manager Fixed Income Relationship Specialty Start Date End Date Osiris Sanchez MD [address] [place] [address] PCP - General 07/24/06 06/09/15 Jose Mcguire MD PCP - General Internal Medicine 06/10/15 05/19/19 Vandana Pierce MD PCP - General Family Medicine 05/20/19 08/03/20 Norman Arita MD [address] [place] [address] PCP - General Internal Medicine 08/04/20 03/04/22 documented as of this encounter
--- OUTSIDE RECORDS SUMMARY | 2024-11-14 08:10 | XMS_ITS | Encounter Summary ---
Author Organization [facility] Address [address] [place] [address] Care Team Providers Care Automatic Buffer Name Role Phone Osiris Sanchez MD Primary Care Provider [phone] Jose Mcguire MD Primary Care Provider Gela Vandana Tovar MD Primary Care Provider [phone] Norman Arita MD Primary Care Provider Encounter Details Date Type Department Care Team (Late st Contact Info) Description 02/06/2012 Orders Only May Internal Medicine [address] [place] [address] Osiris Sanchez MD [address] [place] [address] Social History Tobacco Use Types Packs/Day Years [...] 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 documented in this encounter Plan of Treatment Not on file documented as of this encounter Procedures * Due to [facility] law, this organization might not be sharing negative HIV tests. Procedure Name Priority Date/Time Associated Diagnosis Comments THYROID STIMULATING HORMONE (TSH) WITH FREE T4 REFLEX, SERUM Routine 02/06/2012 1:42 PM EST Dysuria documented in this encounter Results * Due to [place] [employer] law, this organization might not be sharing negative HIV tests. * THYROID STIMULATING HORMONE (TSH) WITH FREE T4 REFLEX, SERUM (02/06/2012 1:42 PM EST) TSH 1.01 mIU/L [facility] Comment: {TSH W/REFLEX TO FT4 {[id number]) Reference Range > or = 20 Years 0.40-4.50 Ranges First trimester 0.26-2.66 Second trimester 0.55-2.73 Third trimester 0.43-2.91 02/06/2012 1:42 PM EST 02/06/2012 10:27 PM EST Narrative Resulting Agency Comment [id number] Osiris Sanchez MD LABORATORY Final Result Performing Organization Address City/State/[facility] de Phone Number [facility] [address] [place] [address] documented in this encounter Visit Diagnoses Diagnosis [...] documented as of this encounter Care Teams Automatic Buffer Relationship Specialty Start Date End Date Osiris Sanchez MD [address] [place] [address] PCP - General 07/24/06 06/09/15 Jose Mcguire MD PCP - General Internal Medicine 06/10/15 05/19/19 Vandana Pierce MD PCP - General Family Medicine 05/20/19 08/03/20 Norman Arita MD [address] [place] [address] PCP - General Internal Medicine 08/04/20 03/04/22 documented as of this encounter
--- OUTSIDE RECORDS SUMMARY | 2024-11-14 08:10 | XMS_ITS | Encounter Summary ---
Author Organization [facility] Address [address] [place] [address] Care Team Providers Care Inspector Hairspring Name Role Phone Osiris Sanchez MD Primary Care Provider [phone] Jose Mcguire MD Primary Care Provider Gela Vandana Tovar MD Primary Care Provider [phone] Norman Arita MD Primary Care Provider [phone] Encounter Details Date Type Department Care Team (Late st Contact Info) Description 10/05/2011 Orders Only May Internal Medicine [address] [place] [address] Osiris Sanchez MD [address] [place] [address] Social History Tobacco Use Types Packs/Day Years [...] 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 Will d/w patient at next appt.10/16 documented in this encounter Plan of Treatment Not on file documented as of this encounter Procedures * Due to [place] [employer] law, this organization might not be sharing negative HIV tests. Procedure Name Priority Date/Time Associated Diagnosis Comments TSH, 3RD GENERATION Routine 10/05/2011 7 :16 AM EDT T4, FREE, SERUM Routine 10/05/2011 7:16 AM EDT Disorder of thyroid LIPID PANEL WITH REFLEX TO DIRECT LDL Routine 10/05/2011 7:16 AM EDT Hyperlipidemia documented in this encounter Results * Due to [place] [employer] law, this organization might not be sharing negative HIV tests. * TSH, 3RD GENERATION (10/05/2011 7:16 AM EDT) TSH 1.06 mIU/L [facility] Comment: {TSH {[id number]) Reference Range > or = 20 Years 0.40-4.50 Ranges First trimester 0.26-2.66 Second trimester 0.55-2.73 Third trimester 0.43-2.91 10/05/2011 7:16 AM EDT 10/05/2011 2:25 PM EDT Osiris Sanchez MD LABORATORY Final Result [facility] [address] [place] [address] * T4, FREE, SERUM (10/05/2011 7:16 AM EDT) FT4 1.4 0.8 - 1.8 ng/dL [facility] Comment:{T4, FREE {[id number]) 10/05/2011 7:16 AM EDT 10/05/2011 2:25 PM EDT Narrative Resulting Agency Comment [id number] Osiris Sanchez MD LABORATORY Final Result Performing Organization Address [facility] Co de Phone Number [facility] [address] [place] [address] * (ABNORMAL) LIPID PANEL WITH REFLEX TO DIRECT LDL (10/05/2011 7:16 AM EDT) Cholesterol 200 125 - 200 mg/dL [facility] Comment:{CHOLESTEROL, TOTAL {[id number]) HDL Cholesterol 44(L) > OR = 46 mg/dL [facility] Comment:{HDL CHOLESTEROL {[id number]) Triglyceride 128 <150 mg/dL [facility] Comment:{TRIGLYCERIDES {[id number]) LDL Cholesterol 130(H) <130 mg/dL (calc) [facility] Comment: {LDL-CHOLESTEROL {[id number]) Desirable range <100 mg/dL for patients with CHD or diabetes and <70 mg/dL for diabetic patients with known heart disease. CHOL/HDL Ratio 4.5 < OR = 5.0 (calc) [facility] Comment:{CHOL/HDLC RATIO {[id number]) Cholesterol Non-HDL 156 mg/dL (calc) [facility] Comment: {NON-HDL CHOLESTEROL {[id number]) Target for non-HDL cholesterol is 30 mg/dL higher than LDL cholesterol target. 10/05/2011 7:16 AM EDT 10/05/2011 2:25 PM EDT Narrative Resulting Agency Comment [id number] Osiris Sanchez MD LABORATORY Final Result Performing Organization Address [facility] Co de Phone Number [facility] [address] [place] [address] documented in this encounter Visit Diagnoses Diagnosis [...] documented as of this encounter Care Teams Inspector Hairspring Relationship Specialty Start Date End Date Osiris Sanchez MD [address] [place] [address] PCP - General 07/24/06 06/09/15 Jose Mcguire MD PCP - General Internal Medicine 06/10/15 05/19/19 Vandana Pierce MD PCP - General Family Medicine 05/20/19 08/03/20 Norman Arita MD [address] [place] [address] PCP - General Internal Medicine 08/04/20 03/04/22 documented as of this encounter
--- OUTSIDE RECORDS SUMMARY | 2024-11-14 08:10 | XMS_ITS | Encounter Summary ---
Author Organization [facility] Address [address] [place] [address] Care Team Providers Care Digital Media Manager Name Role Phone Osiris Sanchez MD Primary Care Provider Jose Mcguire MD Primary Care Provider Gela Vandana Tovar MD Primary Care Provider [phone] Norman Arita MD Primary Care Provider [phone] Encounter Details Date Type Department Care Team (Late st Contact Info) Description 08/24/2006 Orders Only May Internal Medicine [address] [place] [address] Osiris Sanchez MD [address] [place] [address] Social History Tobacco Use Types Packs/Day Years [...] 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 * (ABNORMAL) LIPID PROFILE + FASTING GLUCOSE (08/24/2006) CHOLESTEROL, TOTAL 195 125 - 200 MG/DL [facility] (CLIA# [id number]) TRIGLYCERIDES 160(H) 30 - 149 MG/DL [facility] (CLIA# [id number]) Glucose 74 65 - 99 MG/DL [facility] (CLIA# [id number]) HDL-CHOLESTEROL 46 40 - 77 MG/DL [facility] (CLIA# [id number]) LDL-CHOLESTEROL 117 62 - 130 MG/DL [facility] (CLIA# [id number]) Comment: RISK CATEGORY: LDL-CHOLESTEROL GOAL CHD AND CHD RISK EQUIVALENTS: <100 MULTIPLE (2+) FACTORS: <130 ZERO TO ONE RISK FACTOR: <160 CHD RELATIVE RISK RATIO (TOTAL/HDL) 4.24 0.0 - 5.0 [facility] (CLIA# [id number]) Comment:(0.9 X AVERAGE) 08/24/2006 08/24/2006 12: 43 PM EDT Osiris Sanchez MD LABORATORY Final Result [facility] (CLIA# [id number]) [address] [place] [address] * (ABNORMAL) CBC 5 PART DIFF (08/24/2006) WHITE BLOOD COUNT 4.6 3.8 - 10.8 THOUS/UL [facility] (CLIA# [id number]) RBC 4.43 3.80 - 5.10 MIL/UL [facility] (CLIA# [id number]) Hemoglobin 13.3 11.7 - 15.5 G/DL [facility] (CLIA# [id number]) HCT (HEMATOCRIT) 38 35.0 - 45.0 % [facility] (CLIA# [id number]) MCV 85 80.0 - 100.0 FL [facility] (CLIA# [id number]) MCH 30 27.0 - 33.0 PG [facility] (CLIA# [id number]) MCHC 35 32.0 - 36.0 G/DL [facility] (CLIA# [id number]) BAND % 0 0 - 5 % [facility] (CLIA# [id number]) NEUTROPHIL % 45(L) 48 - 75 % FC [facility] (CLIA# [id number]) LYMPHOCYTE % 41(H) 17 - 40 % FC [facility] (CLIA# [id number]) MONOCYTE % 10 0 - 14 % [facility] (CLIA# [id number]) EOSINOPHIL % 3 0 - 5 % FC [facility] (CLIA# [id number]) BASOPHIL % 1 0 - 3 % [facility] (CLIA# [id number]) ATYPICAL LYMPHOCYTE % 0 0 - 5 % [facility] (CLIA# [id number]) PLATELETS 151 140 - 400 THOUS/UL [facility] (CLIA# [id number]) BANDS # 0 0 - 750 CELLS/MCL [facility] (CLIA# [id number]) NEUTROPHILS # 2070 1500 - 7800 CELLS/MCL [facility] (CLIA# [id number]) LYMPHOCYTES # 1886 850 - 3900 CELLS/MCL [facility] (CLIA# [id number]) MONOCYTES # 460 200 - 950 CELLS/MCL [facility] (CLIA# [id number]) EOSINOPHILS # 138 15 - 550 CELLS/MCL [facility] (CLIA# [id number]) BASOPHILS # 46 0 - 200 CELLS/MCL [facility] (CLIA# [id number]) ATYPICAL LYMPHOCYTES # 0 0 - 200 /UL [facility] (CLIA# [id number]) RDW 13.2 11.0 - 15.0 % [facility] (CLIA# [id number]) MPV 9.5 7.5 - 11.5 FL [facility] (CLIA# [id number]) 08/24/2006 08/24/2006 12: 43 PM EDT us Osiris Sanchez MD LAB SAME DAY RESULT Final Resul t [facility] (CLIA# [id number]) [address] [place] [address] documented in this encounter Visit Diagnoses Diagnosis [...] documented as of this encounter Care Teams Digital Media Manager Relationship Specialty Start Date End Date Osiris Sanchez MD [address] [place] [address] PCP - General 07/24/06 06/09/15 Jose Mcguire MD PCP - General Internal Medicine 06/10/15 05/19/19 Vandana Pierce MD PCP - General Family Medicine 05/20/19 08/03/20 Norman Arita MD [address] [place] [address] PCP - General Internal Medicine 08/04/20 03/04/22 documented as of this encounter
--- OUTSIDE RECORDS SUMMARY | 2024-11-14 08:10 | XMS_ITS | Encounter Summary ---
Author Organization [facility] Address [address] [place] [address] Care Team Providers Care Survey Chief Name Role Phone Jose Mcguire MD Primary Care Provider Vandana Vazquez MD Primary Care Provider [phone] Norman Arita MD Primary Care Provider [phone] Encounter Details Date Type Department Care Team (Late st Contact Info) Description 06/19/2016 Orders Only [facility] [address] [facility] [address] [place] [address] Tommy Saldaña MD [address] [place], [place] [id number] Medications Social History Tobacco Use Types Packs/Day [...] doing on arnuity? Possible referral for an quantitative strategy analyst documented in this encounter Plan of Treatment Not on file documented as of this encounter Procedures * Due to [facility] law, this organization might not be sharing negative HIV tests. Procedure Name Priority Date/Time Associated Diagnosis Comments BORDETELLA PERTUSSIS IGG ABS, MAID Routine 06/19/2016 4:46 PM EDT Cough Lung nodule [facility] Routine 06/19/2016 4:46 PM EDT Cough Lung nodule documented in this encounter Results * Due to [facility] law, this organization might not be sharing negative HIV tests. * (ABNORMAL) [facility] (06/19/2016 4:46 PM EDT) IgE 197(H) <CJ=251 kU/L [facility] Dayron Grass (G6) IgE <0.10 kU/L [facility] Dayron Grass (G6) Class 0 [facility] Odette Grass(Kentucky Blue)(G8) IgE <0.10 kU/L [facility] Odette Grass(Kentucky Blue)(G8) Class 0 [facility] Common Ragweed (Short)(W1) IgE 0.98(H) kU/L [facility] Common Ragweed (Short)(W1) Class 2 [facility] Latvian Plantain (W9) IgE <0.10 kU/L [facility] Latvian Plantain (W9) Class 0 [facility] Elaine's Quarters (Goosefoot) (W10) IgE <0.10 kU/L [facility] Elaine's Quarters (Goosefoot) (W10) Class 0 [facility] Meredith (T7) IgE 1.65(H) kU/L [facility] Meredith (T7) Class 2 [facility] Cat Dander [...] (M6) Class 0 [facility] House Dust (Machias-Sandra) (H2) IgE 0.15(H) kU/L [facility] House Dust (Uzma-Sandra) (H2) Class 0/1 [facility] Dermatophagoides Farinae(D2) IgE 1.23(H) kU/L [facility] Dermatophagoides Farinae(D2) Class 2 [facility] 06/19/2016 4:46 PM EDT 06/19/2016 7:43 PM EDT Narrative Resulting Agency Comment [id number] us Tommy Saldaña MD LABORATORY Final Result [facility] [address] [place] [address] * BORDETELLA PERTUSSIS IGG ABS, MAID (06/19/2016 [...] analytical performance characteristics have been determined by [facility]. It has not been cleared or approved by FDA. This assay has been validated pursuant to the CLIA regulations and is used for clinical purposes. 06/19/2016 4:46 PM EDT 06/19/2016 7:43 PM EDT Narrative Resulting Agency Comment [id number] Tommy Saldaña MD LABORATORY Final Result Performing Organization Address City/State/[facility] Co de Phone Number [facility] [address] [place] [address] documented in this encounter Visit Diagnoses Diagnosis [...] documented as of this encounter Care Teams Survey Chief Relationship Specialty Start Date End Date Jose Mcguire MD PCP - General Internal Medicine 06/10/15 05/19/19 Vandana Pierce MD PCP - General Family Medicine 05/20/19 08/03/20 Norman Arita MD [address] [place] [address] PCP - General Internal Medicine 08/04/20 03/04/22 documented as of this encounter
--- OUTSIDE RECORDS SUMMARY | 2024-11-14 08:10 | XMS_ITS | Encounter Summary ---
Author Organization [facility] Address [address] [place] [address] Care Team Providers Care Guidance And Control System Engineer Name Role Phone Osiris Sanchez MD Primary Care Provider [phone] Jose Mcguire MD Primary Care Provider Gela Vandana Tovar MD Primary Care Provider [phone] Norman Arita MD Primary Care Provider [phone] Encounter Details Date Type Department Care Team (Late st Contact Info) Description 10/31/2011 Orders Only [facility] [address] [place] [address] Osiris Sanchez MD [address] [place] [address] Social History Tobacco Use Types Packs/Day Years [...] 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 * CULTURE, GENITAL (10/31/2011 4:07 PM EDT) Bacteria culture (Genital) SEE NOTE [facility] Comment: {CULTURE, GENITAL {[id number]) CULTURE, GENITAL MICRO NUMBER: [id number] TEST STATUS: FINAL SPECIMEN SOURCE: NOT GIVEN SPECIMEN QUALITY: ADEQUATE RESULT: Growth of normal urogenital azar 10/31/2011 4:07 PM EDT 10/31/2011 10:11 PM EDT Narrative Resulting Agency Comment [id number] Osiris Sanchez MD LABORATORY Final Result Performing Organization Address City/[facility]/ZIP Co de Phone Number [facility] [address] [place] [address] * NEISSERIA GONORRHOEAE (GC), SDA (GENITAL SWAB) (10/31/2011 4:07 PM EDT) Neisseria gonorrhoeae DNA NOT DETECTED NOT DETECTED [facility] Comment:{NEISSERIA GONORRHOE AE DNA, SDA {[id number]) COMMENT SEE NOTE [facility] Comment: {COMMENT {[id number]) This test was performed using the BD ProbeTec(TM) Chlamydia trachomatis and Neisseria gonorrhoeae Amplified DNA Assays. 10/31/2011 4:0 7 PM EDT 10/31/2011 10:11 PM EDT Narrative Resulting Agency Comment [id number] Osiris Sanchez MD LABORATORY Final Result Performing Organization Address [facility] Co de Phone Number [facility] [address] [place] [address] * CHLAMYDIA TRACHOMATIS, SDA (GENITAL SWAB) (10/31/2011 4:07 PM EDT) Chlamydia trachomatis DNA NOT DETECTED NOT DETECTED [facility] Comment:{CHLAMYDIA TRACHOMAT IS DNA, SDA {[id number]) COMMENT SEE NOTE [facility] Comment: {COMMENT {[id number]) This test was performed using the BD ProbeTec(TM) Chlamydia trachomatis and Neisseria gonorrhoeae Amplified DNA Assays. 10/31/2011 4:07 PM EDT 10/31/2011 10:11 PM EDT Narrative Resulting Agency Comment [id number] Osiris Sanchez MD LABORATORY Final Result Performing Organization Address City/[facility]/ZIP Co de Phone Number [facility] [address] [place] [address] * RPR, (RAPID PLASMIN REAGIN) WITH REFLEX TO FTA, DIAGNOSTIC (10/31/2011 4:07 PM EDT) Reagin Ab NON-REACT JESSICA NON-REACT JESSICA [facility] Comment:{RPR (DX) W/REFL TIT ER AND CONFIRMATORY TESTING {[id number]) 10/31/2011 4:07 PM EDT 10/31/2011 10:11 PM EDT Narrative Resulting Agency Comment [id number] Osiris Sanchez MD LABORATORY Final Result Performing Organization Address [facility] Co de Phone Number [facility] [address] [place] [address] * HEPATITIS C ANTIBODY, SERUM (10/31/2011 4:07 PM EDT) Hepatitis C virus Ab NON-REACTI VE NON-REACT JESSICA [facility] Comment:{HEPATITIS C ANTIBOD Y {[id number]) Hepatitis C virus Ab Signal/Cutoff 0.03 <1.00 [facility] Comment:{SIGNAL TO CUT-OFF { [id number]) 10/31/2011 4:07 PM EDT 10/31/2011 10:11 PM EDT Narrative Resulting Agency Comment [id number] Osiris Sanchez MD LABORATORY Final Result Performing Organization Address [facility] Co de Phone Number [facility] [address] [place] [address] * HEPATITIS B SURFACE ANTIBODY, QUANTITATIVE (10/31/2011 4:07 PM EDT) Hepatitis B virus surface Ab >1000 mIU/mL [facility] Comment: {HEPATITIS B SURFACE ANTIBODY (QUANT) {[id number]) Patient has immunity to hepatitis B virus. 10/31/2011 4:07 PM EDT 10/31/2011 10:11 PM EDT Narrative Resulting Agency Comment [id number] Osiris Sanchez MD LABORATORY Final Result Performing Organization Address City/[facility] Co de Phone Number [facility] [address] [place] [address] * HEPATITIS B SURFACE ANTIGEN (10/31/2011 4:07 PM EDT) Hepatitis B virus surface Ag NON-REACTI VE NON-REACT JESSICA [facility] Comment:{HEPATITIS B SURFACE ANTIGEN {[id number]) 10/31/2011 4:07 PM EDT 10/31/2011 10:11 PM EDT Narrative Resulting Agency Comment [id number] Osiris Sanchez MD LABORATORY Final Result [facility] [address] [place] [address] documented in this encounter Visit Diagnoses Diagnosis [...] documented as of this encounter Care Teams Guidance And Control System Engineer Relationship Specialty Start Date End Date Osiris Sanchez MD [address] [place] [address] PCP - General 07/24/06 06/09/15 Jose Mcguire MD PCP - General Internal Medicine 06/10/15 05/19/19 Vandana Pierce MD PCP - General Family Medicine 05/20/19 08/03/20 Norman Arita MD [address] [place] [address] PCP - General Internal Medicine 08/04/20 03/04/22 documented as of this encounter
--- OUTSIDE RECORDS SUMMARY | 2024-11-14 08:11 | XMS_ITS | Encounter Summary ---
Author Organization [facility] Address [address] [place] [address] Care Team Providers Care Supervisor Finishing Department Name Role Phone Osiris Sanchez MD Primary Care Provider [phone] Jose Mcguire MD Primary Care Provider Gela Vandana Tovar MD Primary Care Provider [phone] Norman Arita MD Primary Care Provider [phone] Encounter Details Date Type Department Care Team (Late st Contact Info) Description 06/28/2012 Orders Only [facility] [address] [place] [id number] Joby Oleary CRNP Social History Tobacco Use [...] 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 Procedure Name Priority Date/Time Associated Diagnosis Comments CULTURE, URINE, ROUTINE Routine 06/28/2012 8:13 PM EDT Urinary tract infection URINALYSIS, MICROSCOPIC STAT (All results called to provider) 06/28/2012 8:13 PM EDT Urinary tract infection documented in this encounter Results * Due to [place] [employer] law, this organization might not be sharing negative HIV tests. * CULTURE, URINE, ROUTINE (06/28/2012 8:13 PM EDT) Bacteria culture (Urine) SEE NOTE [facility] Comment: {CULTURE, URINE, ROUTINE {[id number]) CULTURE, URINE, ROUTINE MICRO NUMBER: [id number] TEST STATUS: FINAL SPECIMEN SOURCE: URINE SPECIMEN QUALITY: ADEQUATE RESULT: No Growth 06/28/2012 8:13 PM EDT 06/28/2012 8:27 PM EDT Narrative Resulting Agency Comment [id number] us Joby GARCIA LABORATORY Final Result [facility] [address] [place] [address] * (ABNORMAL) URINALYSIS, MICROSCOPIC (06/28/2012 8:13 PM EDT) WBC (Urine) 0-5 < OR = 5 /HPF [facility] Comment:{WBC {[id number]) Epithelial cells.squamous (Urine sed) 6-10(A) < OR = 5 /HPF [facility] Comment:{SQUAMOUS EPITHELIAL CELLS {[id number]) Bacteria (Urine) FEW(A) NONE SEEN /HPF [facility] Comment:{BACTERIA {[id number]) Service comment 01 MANY MUCOUS THREADS [facility] Comment:{COMMENTS {[id number]) Service comment 01 SEE NOTE [facility] Comment: {NOTE {[id number]) This urine was analyzed for the presence of WBC, RBC, bacteria, casts, and other formed elements. Only those elements seen were reported. 06/28/2012 8:13 PM EDT 06/28/2012 8:27 PM EDT Narrative Resulting Agency Comment [id number] us Joby GARCIA LAB SAME DAY RESULT Final Resul t [facility] [address] [place] [address] documented in this encounter Visit Diagnoses Diagnosis [...] as of this encounter Care Teams Supervisor Finishing Department Relationship Specialty Start Date End Date Osiris Sanchez MD [address] [place] [address] PCP - General 07/24/06 06/09/15 Jose Mcguire MD PCP - General Internal Medicine 06/10/15 05/19/19 Vandana Pierce MD PCP - General Family Medicine 05/20/19 08/03/20 Norman Arita MD [address] [place] [address] PCP - General Internal Medicine 08/04/20 03/04/22 documented as of this encounter
--- OUTSIDE RECORDS SUMMARY | 2024-11-14 08:11 | XMS_ITS | Encounter Summary ---
Author Organization [facility] Address [address] [place] [address] Care Team Providers Care Economic Historian Name Role Phone Osiris Sanchez MD Primary Care Provider [phone] Jose Mcguire MD Primary Care Provider Gela Vandana Tovar MD Primary Care Provider [phone] Norman Arita MD Primary Care Provider [phone] Encounter Details Date Type Department Care Team ([facility] st Contact Info) Description 05/14/2012 Orders Only [facility] [address] [place] [address] Patricia Camacho, AIR TRAFFIC INSTRUCTOR [address] [facility] [address] [place] [address] Medications Social History Tobacco Use Types Packs/Day [...] Industry Job Start Date Job End Date [employer] Not on file Not on file Not on file documented as of this encounter Progress Notes * Patricia Camacho, AIR TRAFFIC INSTRUCTOR - 05/16/2012 2:10 PM EDTQuick Note: Urine [...] encounter Procedures * Due to [place] [employer] law, this organization might not be sharing [...] encounter Results * Due to [place] [employer] law, this organization might not be sharing negative HIV tests. * BV/VAGINITIS PANELDNA PROBE (05/14/2012 6:48 PM EDT) Trichomonas vaginalis rRNA (Genital) NOT DETECTED NOT DETECTED [facility] Comment:{TRICHOMONAS: {[id number]) Gardnerella vaginalis rRNA (Genital) NOT DETECTED NOT DETECTED [facility] Comment:{GARDNERELLA: {[id number]) Yecenia sp rRNA (Vag) NOT DETECTED NOT DETECTED [facility] Comment:{YECENIA: {[id number]) 05/14/2012 6:48 PM EDT 05/14/2012 6:55 PM EDT Narrative Resulting Agency Comment [id number] [facility] LABORATORY Final Resu lt Performing Organization Address [facility] Co de Phone Number [facility] [address] [place] [phone] * CHLAMYDIA TRACHOMATIS/GC, SDA (GENITAL SWAB) (05/14/2012 6:48 PM EDT) Pathologist [facility] Chlamydia trachomatis DNA NOT DETECTED NOT DETECTED [facility] Comment:{CHLAMYDIA TRACHOMAT IS DNA, SDA {[id number]) Neisseria gonorrhoeae DNA NOT DETECTED NOT DETECTED [facility] Comment:{NEISSERIA GONORRHOE AE DNA, SDA {[id number]) 05/14/2012 6:48 PM EDT 05/14/2012 6:55 PM EDT Narrative Resulting Agency Comment [id number] [facility] LABORATORY Final Resu lt Performing Organization Address City/[facility]/ZIP Co de Phone Number [facility] [address] [place] [address] * WET PREP (05/14/2012 6:48 PM EDT) Specimen source [facility] Comment:{SOURCE: {[id number]) Microscopic observation NO CLUE CELLS SEEN [facility] Comment: {RESULT: {[id number]) NO FUNGAL ELEMENTS SEEN. NO TRICHOMONAS VAGINALIS SEEN. 05/14/2012 6:48 PM EDT 05/14/2012 6:55 PM EDT Narrative Resulting Agency Comment [id number] us Patricia Nunez NP LAB SAME DAY RESULT Final Result Performing Organization Address City/[facility] Co de Phone Number [facility] [address] [place] [phone] * (ABNORMAL) CULTURE, URINE, ROUTINE (05/14/2012 6:48 PM EDT) Bacteria culture (Urine) SEE NOTE(A) [facility] Comment: {CULTURE, URINE, ROUTINE {[id number]) CULTURE, URINE, ROUTINE MICRO NUMBER: [id number] TEST STATUS: FINAL SPECIMEN SOURCE: URINE SPECIMEN [...] 6:55 PM EDT Narrative Resulting Agency Comment [id number] us Shalom Sandra MD LABORATORY Final Res ult Performing Organization Address [facility] Co de Phone Number [facility] [address] [place] [address] * URINALYSIS, MICROSCOPIC (05/14/2012 6:48 PM EDT) WBC (Urine) 0-5 < OR = 5 /HPF [facility] Comment:{WBC {[id number]) RBC (Urine Sed) 0-3 < OR = 3 /HPF [facility] Comment:{RBC {[id number]) Epithelial cells.squamous (Urine sed) 0-5 < OR = 5 /HPF [facility] Comment:{SQUAMOUS EPITHELIAL CELLS {[id number]) Transitional cells (Urine sed) NONE SEEN < OR = 5 /HPF [facility] Comment:{TRANSITIONAL EPITHE LIAL CELLS {[id number]) Epithelial cells.renal (Urine sed) NONE SEEN < OR = 3 /HPF [facility] Comment:{RENAL EPITHELIAL CE LLS {[id number]) Bacteria (Urine) NONE SEEN NONE SEEN /HPF [facility] Comment:{BACTERIA {[id number]) Yeast (Urine sed) NONE SEEN NONE SEEN /HPF [facility] Comment:{YEAST {[id number]) Service comment 01 FEW MUCOUS THREADS [facility] Comment:{COMMENTS {[id number]) Service comment 01 SEE NOTE [facility] Comment: {NOTE {[id number]) This urine was analyzed for the presence of WBC, RBC, bacteria, casts, and other formed elements. Only those elements seen were reported. 05/14/2012 6:48 PM EDT 05/14/2012 6:55 PM EDT Narrative Resulting Agency Comment [id number] Shalom Sandra MD LAB SAME DAY RESULT Final Result [facility] [address] [place] [address] documented in this encounter Visit Diagnoses Diagnosis [...] documented as of this encounter Care Teams Economic Historian Relationship Specialty Start Date End Date Osiris Sanchez MD [address] [place] [address] PCP - General 07/24/06 06/09/15 Jose Mcguire MD PCP - General Internal Medicine 06/10/15 05/19/19 Vandana Pierce MD PCP - General Family Medicine 05/20/19 08/03/20 Norman Arita MD [address] [place] [address] PCP - General Internal Medicine 08/04/20 03/04/22 documented as of this encounter
--- OUTSIDE RECORDS SUMMARY | 2024-11-14 08:11 | XMS_ITS | Encounter Summary ---
Author Organization [facility] Address [address] [place] [address] Care Team Providers Care [place] Bridge Name Role Phone Jose Mcguire MD Primary Care Provider Gela Vandana Tovar MD Primary Care Provider [phone] Norman Arita MD Primary Care Provider [phone] Encounter Details Date Type Department Care Team (Late Contact Info) Description 08/22/2017 Orders Only [facility] [address] [place] [address] Jose Mcguire MD Social History Tobacco Use [...] this encounter Procedures * Due to [place] state law, this organization might not be sharing negative HIV tests. Procedure Name Priority Date/Time Associated Diagnosis Comments THYROID STIMULATING HORMONE (TSH) WITH FREE T4 REFLEX, SERUM Routine 08/22/2017 3:44 PM EDT Hyperlipidemia, unspecified hyperlipidemia type documented in this encounter Results * Due to [place] state law, this organization might not be sharing negative HIV tests. * THYROID STIMULATING HORMONE (TSH) WITH FREE T4 REFLEX, SERUM (08/22/2017 3:44 PM EDT) TSH 2.15 mIU/L [facility] Comment: Reference Range > or = 20 Years 0.40-4.50 Ranges First trimester 0.26-2.66 Second trimester 0.55-2.73 Third trimester 0.43-2.91 08/22/2017 3:44 PM EDT 08/23/2017 12:28 AM EDT Narrative Resulting Agency Comment [id number] Jose Mcguire MD LABORATORY Final Result Performing Organization Address City/State/[facility] Co de Phone Number [facility] [address] [place] [address] documented in this encounter Visit Diagnoses Diagnosis [...] documented as of this encounter Care Teams [place] Relationship Specialty Start Date End Date Jose Mcguire MD PCP - General Internal Medicine 06/10/15 05/19/19 Vandana Pierce MD PCP - General Family Medicine 05/20/19 08/03/20 Norman Arita MD [address] [place] [address] PCP - General Internal Medicine 08/04/20 03/04/22 documented as of this encounter
--- OUTSIDE RECORDS SUMMARY | 2024-11-14 08:11 | XMS_ITS | Encounter Summary ---
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
--- OUTSIDE RECORDS SUMMARY | 2024-11-14 08:11 | XMS_ITS | Encounter Summary ---
Author Organization [facility] Address [address] [place] [address] Care Team Providers Care Endocrinology Physician Name Role Phone Norman Arita MD Primary Care Provider [phone] Encounter Details Date Type Department Care Team (Late st Contact Info) Description 12/07/2021 Orders Only [facility] [address] [phone] Eron Arevalo, [place] Social History Tobacco Use Types Packs/Day Years Used Date Smoking Tobacco: Never Smokeless Tobacco: Never Alcohol Use Standard Drinks/Week Comments Yes 0 (1 standard drink = 0.6 oz pur e alcohol) socially PHQ-2 Answer Date [facility] SEVER[facility] SC[facility] (Range 0-6) 0 [...] of this encounter Procedures * Due to [place] [employer] law, this organization might not be sharing negative HIV tests. Procedure Name Priority Date/Time Associated Diagnosis Comments VENIPUNCTURE Routine 12/07/2021 2:17 PM EDT Abnormal LFTs IMMUNOGLOBULIN G,SUBCLASSES 1-4 SERUM Routine 12/07/2021 2:17 PM EDT Abnormal LFTs documented in this encounter Results * Due to [place] [employer] law, this organization might not be sharing negative HIV tests. * PROTHROMBIN TIME (PT) (INR), BLOOD (12/07/2021 2:17 PM EDT) INR 1.0 [facility] Comment: Reference Range 0.9-1.1 Moderate-intensity Warfarin Therapy 2.0-3.0 Higher-intensity Warfarin Therapy 3.0-4.0 PT 9.8 9.0 - 11.5 sec [facility] Comment: For additional information, please refer to http://education.SurDoc.Greatist/faq/FFW631 (This link is being provided for informational/ educational purposes only.) 12/07/2021 2:17 PM EDT 12/07/2021 11:50 PM EDT Narrative Resulting Agency Comment [id number] us Eron [facility] LAB SAME DAY RESULT Final Resu lt Performing Organization Address City/[facility]/ZIP Co de Phone Number [facility] [address] [place] [address] * IMMUNOGLOBULIN G,SUBCLASSES 1-4 SERUM (12/07/2021 2:17 [...] 11:50 PM EDT Narrative Resulting Agency Comment [id number] us Eron [facility] LABORATORY Final Result Performing Organization Address [facility] Co de Phone Number [facility] [address] [place] [address] documented in this encounter Visit Diagnoses Diagnosis Abnormal LFTs Other abnormal blood chemistry documented in this encounter Care Teams Endocrinology Physician Relationship Specialty Start Date End Date Norman Arita MD [address] [place] [address] PCP - General Internal Medicine 08/04/20 03/04/22 documented as of this encounter
--- OUTSIDE RECORDS SUMMARY | 2024-11-14 08:12 | XMS_ITS | Encounter Summary ---
Author Organization [facility] Address [address] [place] [address] Care Team Providers Care Grapple Yarder Operator Name Role Phone Osiris Sanchez MD Primary Care Provider [phone] Jose Mcguire MD Primary Care Provider Gela Vandana Tovar MD Primary Care Provider [phone] Norman Arita MD Primary Care Provider [phone] Encounter Details Date Type Department Care Team (Late st Contact Info) Description 10/07/2012 Orders Only [facility] [address] [place] [address] Juli Boothe, MARKETING PRODUCER [address] [place] [address] Social History Tobacco Use Types Packs/Day Years [...] 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 Procedure Name Priority Date/Time Associated Diagnosis Comments STREPTOCOCCUS, GROUP A CULTURE Routine 10/07/2012 11:53 AM EDT Sore throat documented in this encounter Results * Due to [place] [employer] law, this organization might not be sharing negative HIV tests. * STREPTOCOCCUS, GROUP A CULTURE (10/07/2012 11:53 AM EDT) Culture, Streptococci Group A, Throat SEE NOTE [facility] Comment: {STREPTOCOCCUS, GROUP A CULTURE {[id number]) STREPTOCOCCUS, GROUP A CULTURE MICRO NUMBER: [id number] TEST STATUS: FINAL SPECIMEN SOURCE: THROAT SPECIMEN QUALITY: ADEQUATE RESULT: No beta hemolytic Streptococci isolated 10/07/2012 11:5 3 AM EDT 10/07/2012 4:26 PM EDT Narrative Resulting Agency Comment [id number] Juli Boothe NP LABORATORY Final Result Performing Organization Address City/State/[facility] Co de Phone Number [facility] [address] [place] [address] documented in this encounter Visit Diagnoses Diagnosis [...] documented as of this encounter Care Teams Grapple Yarder Operator Relationship Specialty Start Date End Date Osiris Sanchez MD [address] [place] [address] PCP - General 07/24/06 06/09/15 Jose Mcguire MD PCP - General Internal Medicine 06/10/15 05/19/19 Vandana Pierce MD PCP - General Family Medicine 05/20/19 08/03/20 Norman Arita MD [address] [place] [address] PCP - General Internal Medicine 08/04/20 03/04/22 documented as of this encounter
--- OUTSIDE RECORDS SUMMARY | 2024-11-14 08:12 | XMS_ITS | Encounter Summary ---
Author Organization [facility] Address [address] [place] [address] Care Team Providers Care Atmospheric Physics Professor Name Role Phone Osiris Sanchez MD Primary Care Provider Jose Mcguire MD Primary Care Provider Gela Vandana Tovar MD Primary Care Provider [phone] Norman Arita MD Primary Care Provider [phone] Encounter Details Date Type Department Care Team (Late st Contact Info) Description 08/22/2012 Orders Only [facility] INTEGRATED SPECIALIST [address] [facility] [address] [place] [address] Dee Mcdonald CRNP [address] [place] [address] Social History Tobacco Use Types Packs/Day Years [...] 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 Can offer flagyl by mouth if having symptoms of BV now. 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 * Catalina Mackenzie RN - 08/26/2012 10:19 AM EDTQuick Note: Results to PRODUCE SPECIALIST Tel enc to Nurse pool / a call has been placed & a message left for pt to c/b. * Catalina Mackenzie RN - 08/23/2012 8:07 AM EDTQuick Note: Some results still pending documented in this encounter Plan of Treatment Not on file documented as of this encounter Procedures * Due to [place] [employer] law, this organization might not be sharing negative HIV tests. Procedure Name Priority Date/Time Associated Diagnosis Comments BV/VAGINITIS PANELDNA PROBE(AFFIRM) Routine 08/22/2012 9:35 AM EDT Vaginal Discharge CHLAMYDIA TRACHOMATIS/N. GONORRHOEAE (GC) DNA, SDA (URINE) Routine 08/22/2012 7:50 AM EDT Vaginal Discharge documented in this encounter Results * Due to [place] [employer] law, this organization might not be sharing negative HIV tests. * (ABNORMAL) BV/VAGINITIS PANELDNA PROBE (08/22/2012 9:35 AM EDT) Trichomonas vaginalis rRNA (Genital) NOT DETECTED NOT DETECTED [facility] Comment:{TRICHOMONAS: {[id number]) Gardnerella vaginalis rRNA (Genital) DETECTED(A) NOT DETECTED [facility] Comment: {GARDNERELLA: {[id number]) Increased levels of G. vaginalis may not be significant in the absence of signs and symptoms of bacterial vaginosis. Yecenia sp rRNA (Vag) NOT DETECTED NOT DETECTED [facility] Comment:{YECENIA: {[id number]) 08/22/2012 9:35 AM EDT 08/22/2012 8:11 PM EDT Narrative Resulting Agency Comment [id number] us Deepancho GARCIA LABORATORY Final Resul t Performing Organization Address [facility] de Phone Number [facility] [address] [place] [address] * CHLAMYDIA TRACHOMATIS/N. GONORRHOEAE (GC) DNA, SDA (URINE) (08/22/2012 7:50 AM EDT) Chlamydia trachomatis DNA NOT DETECTED NOT DETECTED [facility] Comment:{CHLAMYDIA TRACHOMAT IS DNA, SDA {[id number]) Neisseria gonorrhoeae DNA NOT DETECTED NOT DETECTED [facility] Comment:{NEISSERIA GONORRHOE AE DNA, SDA {[id number]) 08/22/2012 7:50 AM EDT 08/22/2012 12:55 PM EDT Narrative Resulting Agency Comment [id number] us Deepancho G[facility] Final Resul t Performing Organization Address [facility] de Phone Number [facility] [address] [place] [address] documented in this encounter Visit Diagnoses Diagnosis [...] documented as of this encounter Care Teams Atmospheric Physics Professor Relationship Specialty Start Date End Date Osiris Sanchez MD [address] [place] [address] PCP - General 07/24/06 06/09/15 Jose Mcguire MD PCP - General Internal Medicine 06/10/15 05/19/19 Vandana Pierce MD PCP - General Family Medicine 05/20/19 08/03/20 Norman Arita MD [address] [place] [address] PCP - General Internal Medicine 08/04/20 03/04/22 documented as of this encounter
--- OUTSIDE RECORDS SUMMARY | 2024-11-14 08:12 | XMS_ITS | Encounter Summary ---
Author Organization [facility] Address [address] [place] [address] Care Team Providers Care Curriculum Development Coordinator Name Role Phone Jose Mcguire MD Primary Care Provider Vandana Vazquez MD Primary Care Provider [phone] Norman Arita MD Primary Care Provider [phone] Reason for Visit * Reason Comments Letter/form Request Encounter Details Date Type Department Care Team ([facility] Contact Info) Description 10/12/2017 Telephone July Internal Medicine [address] [place] [id number] Jose Mcguire MD Letter/form Request Social History [...] LMOM Also sent pt a message Via [facility]. After looking through all faxes, I do [...] see if we received a form from [facility] vein clinic?? Please call her [...] documented as of this encounter Care Teams Curriculum Development Coordinator Relationship Specialty Start Date End Date Jose Mcguire MD PCP - General Internal Medicine 06/10/15 05/19/19 Vandana Pierce MD PCP - General Family Medicine 05/20/19 08/03/20 Norman Arita MD [address] [place] [address] PCP - General Internal Medicine 08/04/20 03/04/22 documented as of this encounter
--- OUTSIDE RECORDS SUMMARY | 2024-11-14 08:12 | XMS_ITS | Encounter Summary ---
Author Organization [facility] Address [address] [place] [address] Care Team Providers Care Public Policy Associate Name Role Phone Osiris Sanchez MD Primary Care Provider [phone] Jose Mcguire MD Primary Care Provider Gela Vandana Tovar MD Primary Care Provider [phone] Norman Arita MD Primary Care Provider [phone] Encounter Details Date Type Department Care Team (Late st Contact Info) Description 12/11/2012 Orders Only [facility] [address] [place] [address] Masha Oropeza, LIBRARY SERVICES DEAN [address] [place] [address] Social History Tobacco Use Types Packs/Day Years [...] 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 * CHLAMYDIA TRACHOMATIS/GC, SDA (GENITAL SWAB) (12/11/2012 6:41 PM EDT) Chlamydia trachomatis DNA NOT DETECTED NOT DETECTED [facility] Comment:{CHLAMYDIA TRACHOMAT IS DNA, SDA {[id number]) Neisseria gonorrhoeae DNA NOT DETECTED NOT DETECTED [facility] Comment:{NEISSERIA GONORRHOE AE DNA, SDA {[id number]) 12/11/2012 6:41 PM EDT 12/11/2012 7:14 PM EDT Narrative Resulting Agency Comment [id number] Masha Oropeza NP LABORATORY Final Result Performing Organization Address City/State/[facility] Co de Phone Number [facility] [address] [place] [address] * (ABNORMAL) BV/VAGINITIS PANELDNA PROBE (12/11/2012 6:41 PM EDT) Trichomonas vaginalis rRNA (Genital) NOT DETECTED NOT DETECTED [facility] Comment:{TRICHOMONAS: {[id number]) Gardnerella vaginalis rRNA (Genital) DETECTED(A) NOT DETECTED [facility] Comment: {GARDNERELLA: {[id number]) Increased levels of G. vaginalis may not be significant in the absence of signs and symptoms of bacterial vaginosis. Yecenia sp rRNA (Vag) NOT DETECTED NOT DETECTED [facility] Comment:{YECENIA: {[id number]) 12/11/2012 6:41 PM EDT 12/11/2012 7:14 PM EDT Narrative Resulting Agency Comment [id number] Masha Oropeza NP LABORATORY Final Result Performing Organization Address [facility] de Phone Number [facility] [address] [place] [address] * WET PREP (12/11/2012 6:41 PM EDT) Specimen source [facility] Comment:{SOURCE: {[id number]) Microscopic observation CLUE CELLS SEEN [facility] Comment: {RESULT: {[id number]) NO TRICHOMONAS VAGINALIS SEEN. NO FUNGAL ELEMENTS SEEN. 12/11/2012 6:41 PM EDT 12/11/2012 7:14 PM EDT Narrative Resulting Agency Comment [id number] Masha Oropeza [employer]RARY [employer] DEAN LAB SAME DAY RESULT Final Re sult Performing Organization Address [facility] Phone Number [facility] [address] [place] [address] * CULTURE, URINE, ROUTINE (12/11/2012 6:41 PM EDT) Bacteria culture (Urine) SEE NOTE [facility] Comment: {CULTURE, URINE, ROUTINE {[id number]) CULTURE, URINE, ROUTINE MICRO NUMBER: [id number] TEST STATUS: FINAL SPECIMEN SOURCE: URINE SPECIMEN QUALITY: ADEQUATE RESULT: Multiple organisms present, each less than 10,000 CFU/mL. These organisms, commonly found on external and internal genitalia, are considered to be colonizers. No further testing performed. 12/11/2012 6:41 PM EDT 12/11/2012 7:14 PM EDT Narrative Resulting Agency Comment [id number] Shalom Sandra MD LABORATORY Final Res ult [facility] [address] [place] [address] * URINALYSIS, MICROSCOPIC (12/11/2012 6:41 PM EDT) WBC (Urine) NONE SEEN < OR = 5 /HPF [facility] Comment:{WBC {[id number]) RBC (Urine Sed) NONE SEEN < OR = 3 /HPF [facility] Comment:{RBC {[id number]) Epithelial cells.squamous (Urine sed) 0-5 < OR = 5 /HPF [facility] Comment:{SQUAMOUS EPITHELIAL CELLS {[id number]) Transitional cells (Urine sed) NONE SEEN < OR = 5 /HPF [facility] Comment:{TRANSITIONAL EPITHE LIAL CELLS {[id number]) Epithelial cells.renal (Urine sed) NONE SEEN < OR = 3 /HPF [facility] Comment:{RENAL EPITHELIAL CE LLS {[id number]) Bacteria (Urine) NONE SEEN NONE SEEN /HPF [facility] Comment:{BACTERIA {[id number]) Amorphous sediment (Urine sed) FEW NONE OR FEW /HPF [facility] Comment:{AMORPHOUS SEDIMENT {[id number]) Yeast (Urine sed) NONE SEEN NONE SEEN /HPF [facility] Comment:{YEAST {[id number]) Service comment 01 FEW MUCOUS THREADS [facility] Comment:{COMMENTS {[id number]) Service comment 01 SEE NOTE [facility] Comment: {NOTE {[id number]) This urine was analyzed for the presence of WBC, RBC, bacteria, casts, and other formed elements. Only those elements seen were reported. 12/11/2012 6:41 PM EDT 12/11/2012 7:14 PM EDT Narrative Resulting Agency Comment [id number] us Shalom Sandra MD LAB SAME DAY RESULT Final Result [facility] [address] [place] [address] documented in this encounter Visit Diagnoses Diagnosis [...] documented as of this encounter Care Teams Public Policy Associate Relationship Specialty Start Date End Date Osiris Sanchez MD [address] [place] [address] PCP - General 07/24/06 06/09/15 Jose Mcguire MD PCP - General Internal Medicine 06/10/15 05/19/19 Vandana Pierce MD PCP - General Family Medicine 05/20/19 08/03/20 Norman Arita MD [address] [place] [address] PCP - General Internal Medicine 08/04/20 03/04/22 documented as of this encounter
--- OUTSIDE RECORDS SUMMARY | 2024-11-14 08:12 | XMS_ITS | Encounter Summary ---
Author Organization [facility] Address [address] [place] [address] Care Team Providers Care Physics Technical Officer Name Role Phone Osiris Sanchez MD Primary Care Provider [phone] Jose Mcguire MD Primary Care Provider Gela Vandana Tovar MD Primary Care Provider [phone] Norman Arita MD Primary Care Provider [phone] Encounter Details Date Type Department Care Team (Late st Contact Info) Description 10/18/2012 Orders Only May Internal Medicine [address] [place] [address] Osiris Sanchez MD [address] [place] [address] Social History Tobacco Use Types Packs/Day Years [...] 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 Will d/w patient at the upcoming appt.with me. documented in this encounter Plan of Treatment Not on file documented as of this encounter Procedures * Due to [place] [employer] law, this organization might not be sharing negative HIV tests. Procedure Name Priority Date/Time Associated Diagnosis Comments TSH, 3RD GENERATION Routine 10/18/2012 6 :56 AM EDT T4, FREE, SERUM Routine 10/18/2012 6:56 AM EDT Disorder of thyroid LIPID PANEL WITH REFLEX TO DIRECT LDL Routine 10/18/2012 6:56 AM EDT Hyperlipidemia documented in this encounter Results * Due to [place] [employer] law, this organization might not be sharing negative HIV tests. * TSH, 3RD GENERATION (10/18/2012 6:56 AM EDT) TSH 1.84 mIU/L [facility] Comment: {TSH {[id number]) Reference Range > or = 20 Years 0.40-4.50 Ranges First trimester 0.26-2.66 Second trimester 0.55-2.73 Third trimester 0.43-2.91 10/18/2012 6:56 AM EDT 10/18/2012 11:52 AM EDT us Osiris Sanchez MD LABORATORY Final Result [facility] [address] [place] [address] * T4, FREE, SERUM (10/18/2012 6:56 AM EDT) FT4 1.1 0.8 - 1.8 ng/dL [facility] Comment:{T4, FREE {[id number]) 10/18/2012 6:56 AM EDT 10/18/2012 11:52 AM EDT Narrative Resulting Agency Comment [id number] Osiris Sanchez MD LABORATORY Final Result Performing Organization Address [facility] Co de Phone Number [facility] [address] [place] [address] * (ABNORMAL) LIPID PANEL WITH REFLEX TO DIRECT LDL (10/18/2012 6:56 AM EDT) Cholesterol 193 125 - 200 mg/dL [facility] Comment:{CHOLESTEROL, TOTAL {[id number]) HDL Cholesterol 34(L) > OR = 46 mg/dL [facility] Comment:{HDL CHOLESTEROL {[id number]) Triglyceride 295(H) <150 mg/dL [facility] Comment:{TRIGLYCERIDES {[id number]) LDL Cholesterol 100 <130 mg/dL (calc) [facility] Comment: {LDL-CHOLESTEROL {[id number]) Desirable range <100 mg/dL for patients with CHD or diabetes and <70 mg/dL for diabetic patients with known heart disease. CHOL/HDL Ratio 5.7(H) < OR = 5.0 (calc) [facility] Comment:{CHOL/HDLC RATIO {[id number]) Cholesterol Non-HDL 159 mg/dL (calc) [facility] Comment: {NON HDL CHOLESTEROL {[id number]) Target for non-HDL cholesterol is 30 mg/dL higher than LDL cholesterol target. 10/18/2012 6:56 AM EDT 10/18/2012 11:52 AM EDT Narrative Resulting Agency Comment [id number] Osiris Sanchez MD LABORATORY Final Result Performing Organization Address [facility] Co de Phone Number [facility] [address] [place] [address] documented in this encounter Visit Diagnoses Diagnosis [...] documented as of this encounter Care Teams Physics Technical Officer Relationship Specialty Start Date End Date Osiris Sanchez MD [address] [place] [address] PCP - General 07/24/06 06/09/15 Jose Mcguire MD PCP - General Internal Medicine 06/10/15 05/19/19 Vandana Pierce MD PCP - General Family Medicine 05/20/19 08/03/20 Norman Arita MD [address] [place] [address] PCP - General Internal Medicine 08/04/20 03/04/22 documented as of this encounter
--- OUTSIDE RECORDS SUMMARY | 2024-11-14 08:12 | XMS_ITS | Encounter Summary ---
Author Organization [facility] Address [address] [place] [address] Care Team Providers Care Inspector Handbag Frames Name Role Phone Jose Mcguire MD Primary Care Provider Gela Vandana Tovar MD Primary Care Provider [phone] Norman Arita MD Primary Care Provider [phone] Encounter Details Date Type Department Care Team (Late st Contact Info) Description 10/08/2017 Orders Only July Internal Medicine [address] [place] [address] Jose Mcguire MD Social History Tobacco Use [...] (10/08/2017 7:55 AM EDT) TSH 2.75 mIU/L [facility] Comment: Reference Range > or = 20 Years 0.40-4.50 Ranges First trimester 0.26-2.66 Second trimester 0.55-2.73 Third trimester 0.43-2.91 10/08/2017 7:55 AM EDT 10/08/2017 1:28 PM EDT Narrative Resulting Agency Comment [id number] Jose Mcguire MD LABORATORY Final Result Performing Organization Address [facility] Co de Phone Number [facility] [address] [place] [address] * (ABNORMAL) GLUCOSE (BLOOD) (10/08/2017 7:55 AM EDT) Glucose 115(H) 65 - 99 mg/dL [facility] Comment: Fasting reference interval For someone without known diabetes, a glucose value between 100 and 125 mg/dL is consistent with prediabetes and should be confirmed with a follow-up test. 10/08/2017 7:55 AM EDT 10/08/2017 1:28 PM EDT Narrative Resulting Agency Comment [id number] Jose Mcguire MD LAB SAME DAY RESULT Final Resul t Performing Organization Address City/[facility] Co de Phone Number [facility] [address] [place] [address] * (ABNORMAL) LIPID PANEL WITH REFLEX TO [...] LDL-C. Junior SS et al. RASHI. 2013;310(19): 1074-1954 (http://education.Yoka/faq/QMB032) CHOL/HDL Ratio 7.9(H) <5.0 (calc) [facility] [...] 1:28 PM EDT Narrative Resulting Agency Comment [id number] Jose Mcguire MD LABORATORY Final Result [facility] [address] [place] [address] documented in this encounter Visit Diagnoses Diagnosis [...] as of this encounter Care Teams Inspector Handbag Frames Relationship Specialty Start Date End Date Jose Mcguire MD PCP - General Internal Medicine 06/10/15 05/19/19 Vandana Pierce MD PCP - General Family Medicine 05/20/19 08/03/20 Norman Arita MD [address] [place] [address] PCP - General Internal Medicine 08/04/20 03/04/22 documented as of this encounter
--- OUTSIDE RECORDS SUMMARY | 2024-11-14 08:12 | XMS_ITS | Encounter Summary ---
Author Organization [facility] Address [address] [place] [address] Care Team Providers Care Casino Dealer Name Role Phone Jose Mcguire MD Primary Care Provider Vandana Vazquez MD Primary Care Provider [phone] Norman Arita MD Primary Care Provider [phone] Reason for Visit * Reason Onset Date Comments Refill Request 05/08/2017 Encounter Details Date Type Department Care Team (Late st Contact Info) Description 05/08/2017 Refill July Internal Medicine [address] [place] [address] Jose Mcguire MD Refill Request Social History [...] documented as of this encounter Care Teams Casino Dealer Relationship Specialty Start Date End Date Jose Mcguire MD PCP - General Internal Medicine 06/10/15 05/19/19 Vandana Pierce MD PCP - General Family Medicine 05/20/19 08/03/20 Norman Arita MD [address] [place] [address] PCP - General Internal Medicine 08/04/20 03/04/22 documented as of this encounter
--- OUTSIDE RECORDS SUMMARY | 2024-11-14 08:12 | XMS_ITS | Encounter Summary ---
Author Organization [facility] Address [address] [place] [address] Care Team Providers Care Hospital Personnel Director Name Role Phone Norman Arita MD Primary Care Provider [phone] Encounter Details Date Type Department Care Team (Late st Contact Info) Description 12/01/2021 Orders Only [facility] [address] [place] [id number] Norman Arita MD [address] [place] [address] Social History Tobacco Use Types Packs/Day Years Used Date Smoking Tobacco: Never Smokeless Tobacco: Never Alcohol Use Standard Drinks/Week Comments Yes 0 (1 standard drink = 0.6 oz pur e alcohol) socially PHQ-2 Answer Date [facility] SEVERITY SCORE (Range 0-6) 0 03/07/2021 Comments No Sex and Gender Information Value Date Recorded Sex Assigned at Female 04/12/2020 8:08 AM EST Legal Sex Female 4:49 AM EDT Gender Identity Female 11/03/2019 2:02 PM EDT Sexual Orientation Straight 04/12/2020 8: 08 AM EST 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 * HEPATITIS PANEL, ACUTE W/REFLEX (12/01/2021 11:27 AM EDT) Hepatitis A virus Ab.IgM NON-REACT JESSICA NON-REACT JESSICA [facility] Comment: For additional information, please refer to http://education.WorldDoc.Sakti3/faq/EVY096 (This link is being provided for informational/ [...] a test for HCV RNA (test code 38856) is suggested. For additional information please refer to http://education.[employer]/faq/MZB47o2 (This link is being provided for informational/ educational purposes only.) 12/01/2021 11:2 7 AM EDT 12/01/2021 7:04 PM EDT Narrative Resulting Agency Comment [id number] Norman Arita MD LABORATORY Final Result Performing Organization Address [facility] de Phone Number [facility] [address] [phone] * GGT (12/01/2021 11:27 AM EDT) Gamma glutamyl transferase 53 3 - 70 U/L [facility] 12/01/2021 11:2 7 AM EDT 12/01/2021 7:04 PM EDT Narrative Resulting Agency Comment [id number] Norman Arita MD LABORATORY Final Result Performing Organization Address [facility] de Phone Number [facility] [address] [phone] * 5' NUCLEOTIDASE (12/01/2021 11:27 AM EDT) 5'-Nucleotidas e 7 0 - 10 U/L [facility] 12/01/2021 11:2 7 AM EDT 12/01/2021 7:04 PM EDT Narrative Resulting Agency Comment [id number] Norman Arita MD LABORATORY Final Result [facility] [address] [place] [address] * (ABNORMAL) LOUIS SCREEN IFA W/REFLEX TO [...] indicated. For additional information, please refer to http://education.[facility]/faq/MGG255 (This link is being provided for informational/ [...] and Rings International Consensus on LOUIS Patterns (https://doi.org/10.1515/zdjg-7867-1529) Anti-Nuclear Ab Titer 1:320(H) titer [facility] Comment: Reference Range <1:40 Negative 1:40-1:80 Low Antibody Level >1:80 Elevated Antibody Level LOUIS Pattern Nuclear, Nucleolar (A) [facility] Comment: Nucleolar pattern is associated with systemic sclerosis (scleroderma), systemic sclerosis/polymyositis overlap and Sjogren's syndrome. AC-8,9,10: Nucleolar International Consensus on LOUIS Patterns (https://doi.org/10.1515/kvai-7811-0555) Anti-Nuclear Ab Titer 1:160(H) titer [facility] Comment: Reference Range <1:40 Negative 1:40-1:80 Low Antibody Level >1:80 Elevated Antibody Level LOUIS Pattern Nuclear, Homogeneo us(A) [facility] Comment: Homogeneous pattern is associated with systemic lupus erythematosus (SLE), drug-induced lupus and juvenile idiopathic arthritis. AC-1: Homogeneous International Consensus on LOUIS Patterns (https://doi.org/10.1515/aecg-4231-8699) 12/01/2021 11:2 7 AM EDT 12/01/2021 7:04 PM EDT Narrative Resulting Agency Comment [id number] Norman Arita MD LABORATORY Final Result Performing Organization Address [facility] Phone Number [facility] [address] [phone] * MITOCHONDRIAL ANTIBODY W/REFLEX TO TITER (12/01/2021 11:27 AM EDT) Mitochondria Ab NEGATIVE NEGATIVE [facility] 12/01/2021 11:2 7 AM EDT 12/01/2021 7:04 PM EDT Narrative Resulting Agency Comment [id number] Norman Arita MD LABORATORY Final Result Performing Organization Address [facility] Phone Number [facility] [address] [phone] * (ABNORMAL) ACTIN (SMOOTH MUSCLE)ANTIBODY (IGG) (12/01/2021 [...] 7:04 PM EDT Narrative Resulting Agency Comment [id number] Norman Arita MD LABORATORY Final Result Performing Organization Address [facility] Co de Phone Number [facility] [address] [place] [address] * ALDOLASE (12/01/2021 11:27 AM EDT) Aldolase 1.9 <=8.1 U/L [facility] 12/01/2021 11:2 7 AM EDT 12/01/2021 7:04 PM EDT Narrative Resulting Agency Comment [id number] Norman Arita MD LABORATORY Final Result Performing Organization Address [facility] Co de Phone Number [facility] [address] [place] [address] * PROTEIN ELECTROPHORESIS, SERUM (SPEP) (12/01/2021 11:27 AM EDT) Pathologist [facility] Protein Total (Serum) 8.1 6.1 - 8.1 [...] 7:04 PM EDT Narrative Resulting Agency Comment [id number] Norman Arita MD LABORATORY Final Result Performing Organization Address [facility] Co de Phone Number [facility] [address] [place] [address] * IRON PROFILE (IRON/TIBC), SERUM (12/01/2021 11:27 AM EDT) Pathologist [facility] Iron 54 45 - 160 mcg/dL [facility] Iron binding capacity 344 250 - 450 mcg/dL (calc) [facility] Iron saturation 16 16 - 45 % (calc) [facility] 12/01/2021 11:2 7 AM EDT 12/01/2021 7:04 PM EDT Narrative Resulting Agency Comment [id number] Nomran Arita MD LABORATORY Final Result [facility] [address] [place] [address] * FERRITIN (12/01/2021 11:27 AM EDT) Ferritin 230 16 - 232 ng/mL [facility] 12/01/2021 11:2 7 AM EDT 12/01/2021 7:04 PM EDT Narrative Resulting Agency Comment [id number] Norman Arita MD LABORATORY Final Result [facility] [address] [place] [address] * (ABNORMAL) CELIAC DISEASE COMPREHENSIVE PANEL WITH GLIADIN ANTIBODIES(IGG) (12/01/2021 11:27 AM EDT) Pathologist [facility] Service comment 01 SEE NOTE [facility] [...] 7:04 PM EDT Narrative Resulting Agency Comment [id number] Norman Arita MD LABORATORY Final Result [facility] [address] [place] [address] * THYROID STIMULATING HORMONE (TSH) WITH FREE T4 REFLEX, SERUM (12/01/2021 11:27 AM EDT) TSH 1.12 mIU/L [facility] Comment: Reference Range > or = 20 Years 0.40-4.50 Ranges First trimester 0.26-2.66 Second trimester 0.55-2.73 Third trimester 0.43-2.91 12/01/2021 11:2 7 AM EDT 12/01/2021 7:04 PM EDT Narrative Resulting Agency Comment [id number] Norman Arita MD LABORATORY Final Result Performing Organization Address City/[facility] Co de Phone Number [facility] [address] [place] [address] * CREATINE KINASE (CK), SERUM (12/01/2021 11:27 AM EDT) CPK 117 29 - 143 U/L [facility] 12/01/2021 11:2 7 AM EDT 12/01/2021 7:04 PM EDT Narrative Resulting Agency Comment [id number] Norman Arita MD LAB SAME DAY RESULT Final Result Performing Organization Address [facility] de Phone Number [facility] [address] [place] [address] documented in this encounter Visit Diagnoses Diagnosis Abnormal LFTs Other abnormal blood chemistry documented in this encounter Care Teams Hospital Personnel Director Relationship Specialty Start Date End Date Norman Arita MD [address] [place] [address] PCP - General Internal Medicine 08/04/20 03/04/22 documented as of this encounter
--- OUTSIDE RECORDS SUMMARY | 2024-11-14 08:12 | XMS_ITS | Encounter Summary ---
Author Organization [facility] Address [address] [place] [address] Care Team Providers Care Library Science Professor Name Role Phone Jose Mcguire MD Primary Care Provider Vandana Vazquez MD Primary Care Provider [phone] Norman Arita MD Primary Care Provider [phone] Reason for Referral * CONSULT AND TREATMENT (Routine) - Canceled Specialty Diagnoses / Procedures Referred By Adiel tijerina Referred To Contact Dermatology Diagnoses Cystic acne Jose Mcguire MD Rosenfeld, Thomas L, MD Phone: tel: fax: Referral ID Status Reason Start Date Expiration Date Visits Requested Visits Authorized [id number] Canceled Specialty Services Required 09/19/2017 09/19/2017 1 Question Answer When do you want this visit to occur? PT CONVENIENCE - Pt seen 09/07 Patient is being referred outside of [facility] for the following reason, however final determination for [id number] requests are made by the Referral Management [...] refer to? [facility], [address], [address] [place], [address], Office phone: [phone] Please list the patient's preferred provider for this consult. Dr. Dallin Riggs, Encounter Details Date Type Department Care Team (Late st Contact Info) Description 09/19/2017 Orders Only [facility] [address] [place] [address] Jose Mcguire MD Social History Tobacco Use [...] as of this encounter Care Teams Library Science Professor Relationship Specialty Start Date End Date Jose Mcguire MD PCP - General Internal Medicine 06/10/15 05/19/19 Vandana [place] MD PCP - General Family Medicine 05/20/19 08/03/20 Norman Arita MD [address] [place] [address] PCP - General Internal Medicine 08/04/20 03/04/22 documented as of this encounter
--- OUTSIDE RECORDS SUMMARY | 2024-11-14 08:13 | XMS_ITS | Encounter Summary ---
Author Organization [facility] Address [address] [place] [address] Care Team Providers Care Pill Packer Name Role Phone Osiris Sanchez MD Primary Care Provider [phone] Jose Mcguire MD Primary Care Provider Gela Vandana Tovar MD Primary Care Provider [phone] Norman Arita MD Primary Care Provider [phone] Encounter Details Date Type Department Care Team (Late st Contact Info) Description 11/12/2006 Orders Only [facility] [address] [place] [address] Osiris Sanchez MD [address] [place] [address] Social History Tobacco Use Types Packs/Day Years [...] 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 law, this organization might not [...] in this encounter Results * Due to [facility] law, this organization might not be sharing negative HIV tests. * (ABNORMAL) THIN PREP PAP TEST WITH HUMAN PAPILLOMAVIRUS (HPV) DNA, HIGH (11/12/2006) THINPREP PAP TEST WITH HPV SEE TEXT(A) [facility] (CLIA# [id number]) Comment: THINPREP PAP TEST WITH HPV SOURCES: [...] CONFERENCE, FORUM ON SPECIMEN ADEQUACY, QUOTED IN [email or web address]). COMMENTS: HPV PERFORMED AT [facility], [address] [place] [address], [place], THEODORE ALFARO M.D., DIRECTOR RESULT DATE: 11/16/2006 TECHNOLOGIST: WB GYNECOLOGICAL CYTOLOGY IS A SCREENING PROCEDURE SUBJECT TO BOTH FALSE NEGATIVE AND FALSE POSITIVE RESULTS. IT IS MOST RELIABLE WHEN A SATISFACTORY SAMPLE IS OBTAINED ON A REGULAR REPETITIVE BASIS. RESULTS MUST BE INTERPRETED IN THE CONTEXT OF HISTORIC AND CURRENT CLINICAL INFORMATION. 11/12/2006 11/13/2006 1:5 3 PM EDT Narrative [facility] (CLIA# [id number]) - 11/19/2006 1:18 PM EDT Report Comments: HPV PERFORMED AT [facility], [address] [place] [address], THEODORE ALFARO M.D., DIRECTOR Osiris Sanchez MD PATHOLOGY-INTERFACED Final Resu lt Performing Organization Address City/[facility] Co de Phone Number [facility] (CLIA# [id number]) [address] [place] [address] * CULTURE,VAGINAL (11/12/2006) Result(s) SEE TEXT [facility] (CLIA# [id number]) Comment: SOURCE: VAGINA NORMAL DEBI 11/12/2006 11/12/2006 11: 37 PM EDT Osiris Sanchez MD LABORATORY Final Result Performing Organization Address [facility] Co de Phone Number [facility] (CLIA# [id number]) [address] [place] [address] * CHANI PREP (11/12/2006) FUNGUS (CHANI WET PREP) SEE TEXT [facility] (CLIA# [id number]) Comment: SOURCE: VAGINA NO FUNGAL ELEMENTS SEEN NO CLUE CELLS PRESENT 11/12/2006 11/12/2006 11: 37 PM EDT Osiris Sanchez MD LABORATORY Final Result Performing Organization Address [facility] Co de Phone Number [facility] (CLIA# [id number]) [address] [place] [address] documented in this encounter Visit Diagnoses Diagnosis [...] documented as of this encounter Care Teams Pill Packer Relationship Specialty Start Date End Date Osiris Sanchez MD [address] [place] [address] PCP - General 07/24/06 06/09/15 Jose Mcguire MD PCP - General Internal Medicine 06/10/15 05/19/19 Vandana [place] MD PCP - General Family Medicine 05/20/19 08/03/20 Norman Arita MD [address] [place] [address] PCP - General Internal Medicine 08/04/20 03/04/22 documented as of this encounter
--- OUTSIDE RECORDS SUMMARY | 2024-11-14 08:13 | XMS_ITS | Encounter Summary ---
Author Organization [facility] Address [address] [place] [address] Care Team Providers Care Reservationist Name Role Phone Osiris Sanchez MD Primary Care Provider [phone] Jose Mcguire MD Primary Care Provider Gela Vandana Tovar MD Primary Care Provider [phone] Norman Arita MD Primary Care Provider [phone] Encounter Details Date Type Department Care Team (Late st Contact Info) Description 12/26/2012 Orders Only [facility] [address] [place] [address] Osiris Sanchez MD [address] [place] [address] Social History Tobacco Use Types Packs/Day Years [...] 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 documented in this encounter Plan of Treatment Not on file documented as of this encounter Procedures * Due to [facility] law, this organization might not be sharing negative HIV tests. Procedure Name Priority Date/Time Associated Diagnosis Comments VARICELLA-ZOSTER VIRUS (VZV) ANTIBODY IGG, SERUM Routine 12/26/2012 2:17 PM EDT Immunity status testing documented in this encounter Results * Due to [facility] law, this organization might not be sharing negative HIV tests. * VARICELLA-ZOSTER VIRUS (VZV) ANTIBODY IGG, SERUM (12/26/2012 2:17 PM EDT) Varicella zoster virus Ab.IgG 1.51 index [facility] Comment: {VARICELLA ZOSTER VIRUS ANTIBODY (IGG) {[id number]) Index Explanation of Results --------- < or [...] 7:29 PM EDT Narrative Resulting Agency Comment [id number] Osiris Sanchez MD LABORATORY Final Result [facility] [address] [place] [address] documented in this encounter Visit Diagnoses Diagnosis [...] documented as of this encounter Care Teams Reservationist Relationship Specialty Start Date End Date Osiris Sanchez MD [address] [place] [address] PCP - General 07/24/06 06/09/15 Jose Mcguire MD PCP - General Internal Medicine 06/10/15 05/19/19 Vandana [place] MD PCP - General Family Medicine 05/20/19 08/03/20 Norman Arita MD [address] [place] [address] PCP - General Internal Medicine 08/04/20 03/04/22 documented as of this encounter
--- OUTSIDE RECORDS SUMMARY | 2024-11-14 08:13 | XMS_ITS | Encounter Summary ---
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 The analytical performance characteristics of this assay, when used to test [employer] specimens have been determined by [employer]. 04/18/2013 5:40 PM EST 04/18/2013 9:54 PM EST Narrative Resulting Agency Comment [id number] Jose Mcguire MD LABORATORY Final Result Performing Organization Address City/State/[facility] Co de Phone Number [facility] [address] [place] [address] * BV/VAGINITIS PANELDNA PROBE (04/18/2013 5:40 PM EST) Trichomonas vaginalis rRNA (Genital) NOT DETECTED NOT DETECTED [facility] Comment:{TRICHOMONAS: {[id number]) Gardnerella vaginalis rRNA (Genital) NOT DETECTED NOT DETECTED [facility] Comment:{GARDNERELLA: {[id number]) Yecenia sp rRNA (Vag) NOT DETECTED NOT DETECTED [facility] Comment:{YECENIA: {[id number]) 04/18/2013 5:40 PM EST 04/18/2013 9:54 PM EST Narrative Resulting Agency Comment [id number] Jose Mcguire MD LABORATORY Final Result [facility] [address] [place] [address] documented in this encounter Visit Diagnoses Diagnosis [...] as of this encounter Care Teams Chief Gauger Relationship Specialty Start Date End Date Osiris Sanchez MD [address] [place] [address] PCP - General 07/24/06 06/09/15 Jose Mcguire MD PCP - General Internal Medicine 06/10/15 05/19/19 Vandana [place] MD PCP - General Family Medicine 05/20/19 08/03/20 Norman Arita MD [address] [place] [address] PCP - General Internal Medicine 08/04/20 03/04/22 documented as of this encounter
--- OUTSIDE RECORDS SUMMARY | 2024-11-14 08:13 | XMS_ITS | Encounter Summary ---
Author Organization [facility] Address [address] [place] [address] Care Team Providers Care Border Patrol Agent Name Role Phone Jose Mcguire MD Primary Care Provider Vandana Vazquez MD Primary Care Provider [phone] Norman Arita MD Primary Care Provider [phone] Encounter Details Date Type Department Care Team (Late st Contact Info) Description 11/30/2017 Orders Only [facility] REGISTERED NURSE [address] [facility] [address] [place] [address] Eron Lopez MD Social History Tobacco Use [...] this encounter Procedures * Due to [place] [employer] law, this organization might not be [...] this encounter Results * Due to [place] [employer] law, this organization might not be [...] needs for GFR calculation. Resulting Agency Comment [id number] us Eron Lopez MD LAB SAME DAY RESULT Final Result Performing Organization Address [facility] Co de Phone Number [facility] [address] [place] [address] * UREA NITROGEN (BUN), SERUM (11/30/2017 7:29 AM EDT) Urea Nitrogen Blood (BUN) 8 7 - 25 mg/dL [facility] 11/30/2017 7:29 AM EDT 11/30/2017 12:56 PM EDT Narrative Resulting Agency Comment [id number] us Eron Lopez MD LAB SAME DAY RESULT Final Result Performing Organization Address [facility] de Phone Number [facility] [address] [place] [address] * ESTRADIOL, RAPID (11/30/2017 7:29 AM EDT) Estradiol 18 pg/mL [facility] Comment: Reference Range Follicular Phase: 19-144 Mid-Cycle: 64-357 Luteal Phase: 56-214 Postmenopausal: < or = 31 Reference range established on post-pubertal patient population. No pre-pubertal reference range established using this assay. For any patients for whom low Estradiol levels are anticipated (e.g. males, pre-pubertal children and hypogonadal/post-menopausal females), the [facility] Estradiol, Ultrasensitive, LCMSMS assay is recommended (order code [id number]). Please note: patients being treated with the drug fulvestrant (Faslodex(R)) have demonstrated significant interference in immunoassay methods for estradiol measurement. The cross reactivity could lead to falsely elevated estradiol test results leading to an inappropriate clinical assessment of estrogen status. [facility] order code [id number], Ultrasensitive LC/MS/MS demonstrates negligible cross reactivity with fulvestrant. 11/30/2017 7:29 AM EDT 11/30/2017 12:56 PM EDT Narrative Resulting Agency Comment [id number] us Eron Lopez MD LAB SAME DAY RESULT Final Result Performing Organization Address City/[facility] Co de Phone Number [facility] [address] [place] [address] * FSH (11/30/2017 7:29 AM EDT) FSH 42.8 mIU/mL [facility] Comment: Reference Range Follicular Phase 2.5-10.2 Mid-cycle Peak 3.1-17.7 Luteal Phase 1.5- 9.1 Postmenopausal 23.0-116.3 11/30/2017 7:29 AM EDT 11/30/2017 12:56 PM EDT Narrative Resulting Agency Comment [id number] us Eron Lopez MD LAB SAME DAY RESULT Final Result Performing Organization Address [facility] Co de Phone Number [facility] [address] [place] [address] documented in this encounter Visit Diagnoses Diagnosis [...] documented as of this encounter Care Teams Border Patrol Agent Relationship Specialty Start Date End Date Jose Mcguire MD PCP - General Internal Medicine 06/10/15 05/19/19 Vandana [place] MD PCP - General Family Medicine 05/20/19 08/03/20 Norman Arita MD [address] [place] [address] PCP - General Internal Medicine 08/04/20 03/04/22 documented as of this encounter
--- OUTSIDE RECORDS SUMMARY | 2024-11-14 08:13 | XMS_ITS | Encounter Summary ---
Author Organization [facility] Address [address] [place] [address] Care Team Providers Care Private Equity Analyst Name Role Phone Jose Mcguire MD Primary Care Provider Vandana Vazquez MD Primary Care Provider [phone] Norman Arita MD Primary Care Provider [phone] Encounter Details Date Type Department Care Team (Late st Contact Info) Description 11/13/2017 Orders Only [facility] [address] [place] [address] Jose Mcguire MD Social History Tobacco Use [...] this encounter Procedures * Due to [place] [employer] law, this organization might not be sharing negative HIV tests. Procedure Name Priority Date/Time Associated Diagnosis Comments HEMOGLOBIN A1C Routine 11/13/2017 4:53 PM EDT Routine history and physical examination of adult documented in this encounter Results * Due to [place] [employer] law, this organization might not be [...] diagnosis of diabetes in children. According to [place] Diabetes Association (ADA) guidelines, hemoglobin A1c <7.0% represents optimal control in non- diabetic patients. Different metrics may apply to specific patient populations. Standards of Medical Care in Diabetes(ADA). Estimated Average Glucose 122 mg/dL (calc) [facility] 11/13/2017 4:53 PM EDT 11/14/2017 2:36 AM EDT Narrative Resulting Agency Comment [id number] Jose Mcguire MD LABORATORY Final Result Performing Organization Address City/State/[facility] Co de Phone Number [facility] [address] [place] [address] documented in this encounter Visit Diagnoses Diagnosis [...] documented as of this encounter Care Teams Private Equity Analyst Relationship Specialty Start Date End Date Jose Mcguire MD PCP - General Internal Medicine 06/10/15 05/19/19 Vandana Pierce MD PCP - General Family Medicine 05/20/19 08/03/20 Norman Arita MD [address] [place] [address] PCP - General Internal Medicine 08/04/20 03/04/22 documented as of this encounter
--- OUTSIDE RECORDS SUMMARY | 2024-11-14 08:13 | XMS_ITS | Encounter Summary ---
Author Organization [facility] Address [address] [place] [address] Care Team Providers Care Staff Scientist Name Role Phone Osiris Sanchez MD Primary Care Provider [phone] Jose Mcguire MD Primary Care Provider Gela Vandana Tovar MD Primary Care Provider [phone] Norman Arita MD Primary Care Provider [phone] Encounter Details Date Type Department Care Team (Late st Contact Info) Description 04/18/2013 Orders Only [facility] [address] [place] [address] Osiris Sanchez MD [address] [place] [address] Social History Tobacco Use Types Packs/Day Years [...] 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 Procedure Name Priority Date/Time Associated Diagnosis Comments URINALYSIS, DIP ONLY STAT (All results called to provider) 04/18/2013 3:38 PM EST Vaginitis and vulvovaginitis CULTURE, URINE, ROUTINE Routine 04/18/2013 3:26 PM EST Vaginitis and vulvovaginitis URINALYSIS, MICROSCOPIC Routine 04/18/2013 3:26 PM EST Vaginitis and vulvovaginitis documented in this encounter Results * Due to [place] [employer] law, this organization might not be sharing negative HIV tests. * (ABNORMAL) URINALYSIS, DIP ONLY ( SITE STAT ONLY) (04/18/2013 3:38 PM EST) COLOR (URINE) yellow [facility] (CLIA# [id number]) APPEARANCE (URINE) clear [facility] (CLIA# [id number]) SPECIFIC GRAVITY 1.010 1.001 - 1.035 [facility] (CLIA# [id number]) PH (URINE) 7.5 5.0 - 8.0 [facility] (CLIA# [id number]) PROTEIN (URINE) trace(A) Neg [facility] (CLIA# [id number]) GLUCOSE (URINE) negative Neg [facility] (CLIA# [id number]) Ketones (Urine) negative Neg [facility] (CLIA# [id number]) BILIRUBIN (URINE) negative Neg [facility] (CLIA# [id number]) BLOOD (URINE) negative Neg [facility] (CLIA# [id number]) WBC (URINE) trace(A) Neg [facility] (CLIA# [id number]) NITRITE (URINE) negative Neg [facility] (CLIA# [id number]) Urine specimen obtained by clean catch procedure (specimen) 04/18/2013 3:38 PM EST Narrative [facility] (CLIA# [id number]) - 04/18/2013 3:39 PM EST Micro added. Culture already ordered per provider. Osiris Sanchez MD LAB SAME DAY RESULT Final Resul t Performing Organization Address [facility] de Phone Number [facility] (CLIA# [id number]) [address] [place] [address] * URINALYSIS, MICROSCOPIC (04/18/2013 3:26 PM EST) WBC (Urine) NONE SEEN < OR = 5 /HPF [facility] Comment:{WBC {[id number]) RBC (Urine Sed) NONE SEEN < OR = 3 /HPF [facility] Comment:{RBC {[id number]) Epithelial cells.squamous (Urine sed) 0-5 < OR = 5 /HPF [facility] Comment:{SQUAMOUS EPITHELIAL CELLS {[id number]) Bacteria (Urine) NONE SEEN NONE SEEN /HPF [facility] Comment:{BACTERIA {[id number]) Hyaline casts (Urine sed) NONE SEEN NONE SEEN /LPF [facility] Comment:{HYALINE CAST {[id number]) 04/18/2013 3:26 PM EST 04/18/2013 11:37 PM EST Narrative Resulting Agency Comment [id number] Osiris Sanchez MD LAB SAME DAY RESULT Final Resul t Performing Organization Address City/[facility]/ZIP Co de Phone Number [facility] [address] [place] [address] * CULTURE, URINE, ROUTINE (04/18/2013 3:26 PM EST) Bacteria culture (Urine) SEE NOTE [facility] Comment: {CULTURE, URINE, ROUTINE {[id number]) CULTURE, URINE, ROUTINE MICRO NUMBER: [id number] TEST STATUS: FINAL SPECIMEN SOURCE: URINE SPECIMEN QUALITY: ADEQUATE RESULT: No Growth 04/18/2013 3:26 PM EST 04/18/2013 11:37 PM EST Narrative Resulting Agency Comment [id number] Osiris Sanchez MD LABORATORY Final Result [facility] [address] [place] [address] documented in this encounter Visit Diagnoses Diagnosis [...] documented as of this encounter Care Teams Staff Scientist Relationship Specialty Start Date End Date Osiris Sanchez MD [address] [place] [address] PCP - General 07/24/06 06/09/15 Jose Mcguire MD PCP - General Internal Medicine 06/10/15 05/19/19 Vandana Pierce MD PCP - General Family Medicine 05/20/19 08/03/20 Norman Arita MD [address] [place] [address] PCP - General Internal Medicine 08/04/20 03/04/22 documented as of this encounter
--- OUTSIDE RECORDS SUMMARY | 2024-11-14 08:13 | XMS_ITS | Encounter Summary ---
Author Organization [facility] Address [address] [place] [address] Care Team Providers Care Environmental Field Office Manager Name Role Phone Jose Mcguire MD Primary Care Provider Vandana Vazquez MD Primary Care Provider [phone] Norman Arita MD Primary Care Provider [phone] Encounter Details Date Type Department Care Team (Late st Contact Info) Description 03/06/2018 Orders Only [facility] [address] [place] [phone] Elizabeth Kim NP [address] [place] [address] Social History Tobacco Use Types Packs/Day Years [...] this encounter Procedures * Due to [place] [employer] law, this organization might not be sharing negative HIV tests. Procedure Name Priority Date/Time Associated Diagnosis Comments STREPTOCOCCUS, GROUP A CULTURE Routine 03/06/2018 12:14 PM EST Sore throat documented in this encounter Results * Due to [facility] law, this organization might not be sharing negative HIV tests. * STREPTOCOCCUS, GROUP A CULTURE (03/06/2018 12:14 PM EST) Culture, Streptococci Group A, Throat SEE NOTE [facility] Comment: STREPTOCOCCUS, GROUP A CULTURE MICRO NUMBER: [id number] TEST STATUS: FINAL SPECIMEN SOURCE: NOT GIVEN SPECIMEN QUALITY: ADEQUATE RESULT: No group A Streptococcus isolated 03/06/2018 12:1 4 PM EST 03/06/2018 6:27 PM EST Narrative Resulting Agency Comment [id number] Elizabeth Kim NP LABORATORY Final Result Performing Organization Address City/State/[facility] de Phone Number [facility] [address] [place] [address] documented in this encounter Visit Diagnoses Diagnosis [...] documented as of this encounter Care Teams Environmental Field Office Manager Relationship Specialty Start Date End Date Jose Mcguire MD PCP - General Internal Medicine 06/10/15 05/19/19 Vandana Pierce MD PCP - General Family Medicine 05/20/19 08/03/20 Norman Arita MD [address] [place] [address] PCP - General Internal Medicine 08/04/20 03/04/22 documented as of this encounter
--- OUTSIDE RECORDS SUMMARY | 2024-11-14 08:13 | XMS_ITS | Encounter Summary ---
Author Organization [facility] Address [address] [place] [address] Care Team Providers Care Catering Director Name Role Phone Jose Mcguire MD Primary Care Provider Vandana Vazquez MD Primary Care Provider [phone] Norman Arita MD Primary Care Provider [phone] Encounter Details Date Type Department Care Team (Late st Contact Info) Description 12/19/2017 Orders Only [facility] [address] [place] [phone] Jose Mcguire MD Social History Tobacco Use [...] Comment: STREPTOCOCCUS, GROUP A CULTURE MICRO NUMBER: [id number] TEST STATUS: FINAL SPECIMEN SOURCE: NOT GIVEN SPECIMEN QUALITY: ADEQUATE RESULT: No group A Streptococcus isolated 12/19/2017 11:5 0 AM EDT 12/19/2017 3:42 PM EDT Narrative Resulting Agency Comment [id number] Jose Mcguire MD LABORATORY Final Result Performing Organization Address City/State/[facility] Co de Phone Number [facility] [address] [place] [address] documented in this encounter Visit Diagnoses Diagnosis [...] documented as of this encounter Care Teams Catering Director Relationship Specialty Start Date End Date Jose Mcguire MD PCP - General Internal Medicine 06/10/15 05/19/19 Vandana Pierce MD PCP - General Family Medicine 05/20/19 08/03/20 Norman Arita MD [address] [place] [address] PCP - General Internal Medicine 08/04/20 03/04/22 documented as of this encounter
--- OUTSIDE RECORDS SUMMARY | 2024-11-14 08:13 | XMS_ITS | Encounter Summary ---
Author Organization [facility] Address [address] [place] [address] Care Team Providers Care Product Marketing Engineer Name Role Phone Osiris Sanchez MD Primary Care Provider Jose Mcguire MD Primary Care Provider Gela Vandana Tovar MD Primary Care Provider [phone] Norman Arita MD Primary Care Provider [phone] Encounter Details Date Type Department Care Team (Late st Contact Info) Description 01/08/2007 Orders Only [facility] [address] [place] [address] Osiris Sanchez MD [address] [place] [address] Social History Tobacco Use Types Packs/Day Years [...] 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 * CULTURE,VAGINAL (01/08/2007) Result(s) SEE TEXT [facility] (CLIA# [id number]) Comment: SOURCE: VAGINA NORMAL DEBI 01/08/2007 01/08/2007 3:4 9 PM EST Osiris Sanchez MD LABORATORY Final Result Performing Organization Address [facility] Co de Phone Number [facility] (CLIA# [id number]) [address] [place] [address] * CHANI PREP (01/08/2007) FUNGUS (CHANI WET PREP) SEE TEXT [facility] (CLIA# [id number]) Comment: SOURCE: UNKNOWN NO FUNGAL ELEMENTS SEEN NO CLUE CELLS PRESENT 01/08/2007 01/08/2007 3:4 9 PM EST Osiris Sanchez MD LABORATORY Final Result Performing Organization Address [facility] de Phone Number [facility] (CLIA# [id number]) [address] [place] [address] documented in this encounter Visit Diagnoses Diagnosis [...] documented as of this encounter Care Teams Product Marketing Engineer Relationship Specialty Start Date End Date Osiris Sanchez MD [address] [place] [address] PCP - General 07/24/06 06/09/15 Jose Mcguire MD PCP - General Internal Medicine 06/10/15 05/19/19 Vandana Pierce MD PCP - General Family Medicine 05/20/19 08/03/20 Norman Arita MD [address] [place] [address] PCP - General Internal Medicine 08/04/20 03/04/22 documented as of this encounter
--- OUTSIDE RECORDS SUMMARY | 2024-11-14 08:13 | XMS_ITS | Encounter Summary ---
Author Organization [facility] Address [address] [place] [address] Care Team Providers Care Rental Car Deliverer Name Role Phone Jose Mcguire MD Primary Care Provider Vandana Vazquez MD Primary Care Provider [phone] Norman Arita MD Primary Care Provider [phone] Reason for Visit * Reason Onset Date Comments Refill Request 11/14/2017 Encounter Details Date Type Department Care Team (Late st Contact Info) Description 11/14/2017 Refill [facility] [address] [place] [address] Jose Mcguire MD Refill Request Social History [...] documented as of this encounter Care Teams Rental Car Deliverer Relationship Specialty Start Date End Date Jose Mcguire MD PCP - General Internal Medicine 06/10/15 05/19/19 Vandana Pierce MD PCP - General Family Medicine 05/20/19 08/03/20 Norman Arita MD [address] [place] [facility] [place] [address] PCP - General Internal Medicine 08/04/20 03/04/22 documented as of this encounter
--- OUTSIDE RECORDS SUMMARY | 2024-11-14 08:13 | XMS_ITS | Encounter Summary ---
Author Organization [facility] Address [address] [place] [address] Care Team Providers Care Services Program Manager Name Role Phone Osiris Sanchez MD Primary Care Provider [phone] Jose Mcguire MD Primary Care Provider Gela Vandana Tovar MD Primary Care Provider [phone] Norman Arita MD Primary Care Provider [phone] Encounter Details Date Type Department Care Team (Late st Contact Info) Description 07/08/2012 Orders Only [facility] [address] [place] [address] Osiris Sanchez MD [address] [place] [address] Social History Tobacco Use Types Packs/Day Years [...] 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 Procedure Name Priority Date/Time Associated Diagnosis Comments CHLAMYDIA TRACHOMATIS/N. GONORRHOEAE (GC) DNA, SDA (URINE) Routine 07/08/2012 5:15 PM EDT CULTURE, GENITAL Routine 07/08/2012 5:15 PM EDT Vaginitis and vulvovaginitis documented in this encounter Results * Due to [place] [employer] law, this organization might not be sharing negative HIV tests. * T4, FREE, SERUM (10/18/2012 6:56 AM EDT) FT4 1.1 0.8 - 1.8 ng/dL [facility] Comment:{T4, FREE {[id number]) 10/18/2012 6:56 AM EDT 10/18/2012 11:52 AM EDT Narrative Resulting Agency Comment [id number] Osiris Sanchez MD LABORATORY Final Result [facility] [address] [place] [address] * (ABNORMAL) LIPID PANEL WITH REFLEX TO DIRECT LDL (10/18/2012 6:56 AM EDT) Cholesterol 193 125 - 200 mg/dL [facility] Comment:{CHOLESTEROL, TOTAL {[id number]) HDL Cholesterol 34(L) > OR = 46 mg/dL [facility] Comment:{HDL CHOLESTEROL {[id number]) Triglyceride 295(H) <150 mg/dL [facility] Comment:{TRIGLYCERIDES {[id number]) LDL Cholesterol 100 <130 mg/dL (calc) [facility] Comment: {LDL-CHOLESTEROL {[id number]) Desirable range <100 mg/dL for patients with CHD or diabetes and <70 mg/dL for diabetic patients with known heart disease. CHOL/HDL Ratio 5.7(H) < OR = 5.0 (calc) [facility] Comment:{CHOL/HDLC RATIO {[id number]) Cholesterol Non-HDL 159 mg/dL (calc) [facility] Comment: {NON HDL CHOLESTEROL {[id number]) Target for non-HDL cholesterol is 30 mg/dL higher than LDL cholesterol target. 10/18/2012 6:56 AM EDT 10/18/2012 11:52 AM EDT Narrative Resulting Agency Comment [id number] Osiris Sanchez MD LABORATORY Final Result Performing Organization Address City/State/[facility] Co de Phone Number [facility] [address] [place] [address] * CHLAMYDIA TRACHOMATIS/N. GONORRHOEAE (GC) DNA, SDA (URINE) (07/08/2012 5:15 PM EDT) Chlamydia trachomatis DNA NOT DETECTED NOT DETECTED [facility] Comment:{CHLAMYDIA TRACHOMAT IS DNA, SDA {[id number]) Neisseria gonorrhoeae DNA NOT DETECTED NOT DETECTED [facility] Comment:{NEISSERIA GONORRHOE AE DNA, SDA {[id number]) COMMENT SEE NOTE [facility] Comment: {COMMENT {[id number]) This test was performed using the BD ProbeTec(TM) Chlamydia trachomatis and Neisseria gonorrhoeae Amplified DNA Assays. We received a BD Secure[employer] Technologies[employer] collection device with a non-specific order. Based on the specimen submitted the CT/NG DNA, SDA test was performed. If this is not what you intended to order, please contact your local client resolution specialist immediately so that we can adjust our billing appropriately. You may also inquire about alternative or additional testing. 07/08/2012 5:15 PM EDT 07/08/2012 9:46 PM EDT Osiris Sanchez MD LABORATORY Final Result Performing Organization Address City/[facility]/ZIP Co de Phone Number [facility] [address] [place] [address] * CULTURE, GENITAL (07/08/2012 5:15 PM EDT) Bacteria culture (Genital) SEE NOTE [facility] Comment: {CULTURE, GENITAL {[id number]) CULTURE, GENITAL MICRO NUMBER: [id number] TEST STATUS: FINAL SPECIMEN SOURCE: GENITAL SPECIMEN QUALITY: ADEQUATE RESULT: Growth of normal urogenital azar 07/08/2012 5:15 PM EDT 07/08/2012 9:46 PM EDT Narrative Resulting Agency Comment [id number] Osiris Sanchez MD LABORATORY Final Result Performing Organization Address [facility] Co de Phone Number [facility] [address] [place] [address] documented in this encounter Visit Diagnoses Diagnosis [...] documented as of this encounter Care Teams Services Program Manager Relationship Specialty Start Date End Date Osiris Sanchez MD [address] [place] [address] PCP - General 07/24/06 06/09/15 Jose Mcguire MD PCP - General Internal Medicine 06/10/15 05/19/19 Vandana Pierce MD PCP - General Family Medicine 05/20/19 08/03/20 Norman Arita MD [address] [place] [address] PCP - General Internal Medicine 08/04/20 03/04/22 documented as of this encounter
--- OUTSIDE RECORDS SUMMARY | 2024-11-14 08:13 | XMS_ITS | Encounter Summary ---
Author Organization [facility] Address [address] [place] [address] Care Team Providers Care Optics Test Technician Name Role Phone Osiris Sanchez MD Primary Care Provider Jose Mcguire MD Primary Care Provider Gela Vandana Tovar MD Primary Care Provider [phone] Norman Arita MD Primary Care Provider [phone] Reason for Visit * Reason Onset Date Comments Refill Request 06/03/2013 Encounter Details Date Type Department Care Team (Late st Contact Info) Description 06/03/2013 Refill [facility] Internal Medicine [address] [place] [id number] Osiris Sanchez MD [address] [place] [address] Refill Request Social History Tobacco Use Types [...] Job Start Date Job End Date [employer] Not on file Not on file Not [...] documented as of this encounter Care Teams Optics Test Technician Relationship Specialty Start Date End Date Osiris Sanchez MD [address] [place] [address] PCP - General 07/24/06 06/09/15 Jose Mcguire MD PCP - General Internal Medicine 06/10/15 05/19/19 Vandana Pierce MD PCP - General Family Medicine 05/20/19 08/03/20 Norman Arita MD [address] [place] [address] PCP - General Internal Medicine 08/04/20 03/04/22 documented as of this encounter
--- OUTSIDE RECORDS SUMMARY | 2024-11-14 08:13 | XMS_ITS | Encounter Summary ---
Author Organization [facility] Address [address] [place] [address] Care Team Providers Care Airveyor Operator Name Role Phone Osiris Sanchez MD Primary Care Provider [phone] Jose Mcguire MD Primary Care Provider Gela Vandana Tovar MD Primary Care Provider [phone] Norman Arita MD Primary Care Provider [phone] Reason for Visit * Reason Onset Date Comments Refill Request 06/03/2013 Encounter Details Date Type Department Care Team (Late st Contact Info) Description 06/03/2013 Refill [facility] Internal [facility] [address] [place] [address] Juli Boothe, KANDIS [address] [place] [address] Refill Request Social History Tobacco Use Types [...] 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
--- OUTSIDE RECORDS SUMMARY | 2024-11-14 08:14 | XMS_ITS | Encounter Summary ---
Author Organization [facility] Address [address] [place] [address] Care Team Providers Care Reactor Kettle Operator Name Role Phone Osiris Sanchez MD Primary Care Provider [phone] Jose Mcguire MD Primary Care Provider Gela Vandana Tovar MD Primary Care Provider [phone] Norman Arita MD Primary Care Provider [phone] Encounter Details Date Type Department Care Team (Late st Contact Info) Description 06/12/2013 Orders Only [facility] Internal [facility] [address] [place] [address] Osiris Sanchez MD [address] [place] [address] Social History Tobacco Use Types Packs/Day Years [...] 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 Procedure Name Priority Date/Time Associated Diagnosis Comments LIPID PANEL WITH REFLEX TO DIRECT LDL Routine 06/12/2013 7:11 AM EDT Hyperlipidemia documented in this encounter Results * Due to [place] [employer] law, this organization might not be sharing negative HIV tests. * (ABNORMAL) LIPID PANEL WITH REFLEX TO DIRECT LDL (06/12/2013 7:11 AM EDT) Cholesterol 218(H) 125 - 200 mg/dL [facility] Comment:{CHOLESTEROL, TOTAL {[id number]) HDL Cholesterol 43(L) > OR = 46 mg/dL [facility] Comment:{HDL CHOLESTEROL {[id number]) Triglyceride 269(H) <150 mg/dL [facility] Comment:{TRIGLYCERIDES {[id number]) LDL Cholesterol 121 <130 mg/dL (calc) [facility] Comment: {LDL-CHOLESTEROL {[id number]) Desirable range <100 mg/dL for patients with CHD or diabetes and <70 mg/dL for diabetic patients with known heart disease. CHOL/HDL Ratio 5.1(H) < OR = 5.0 (calc) [facility] Comment:{CHOL/HDLC RATIO {[id number]) Cholesterol Non-HDL 175(H) mg/dL (calc) [facility] Comment: {NON HDL CHOLESTEROL {[id number]) Target for non-HDL cholesterol is 30 mg/dL higher than LDL cholesterol target. 06/12/2013 7:11 AM EDT 06/12/2013 12:47 PM EDT Narrative Resulting Agency Comment [id number] us Osiris Sanchez MD LABORATORY Final Result [facility] [address] [place] [address] documented in this encounter Visit Diagnoses Diagnosis [...] documented as of this encounter Care Teams Reactor Kettle Operator Relationship Specialty Start Date End Date Osiris Sanchez MD [address] [place] [address] PCP - General 07/24/06 06/09/15 Jose Mcguire MD PCP - General Internal Medicine 06/10/15 05/19/19 Vandana Pierce MD PCP - General Family Medicine 05/20/19 08/03/20 Norman Arita MD [address] [place] [address] PCP - General Internal Medicine 08/04/20 03/04/22 documented as of this encounter
--- OUTSIDE RECORDS SUMMARY | 2024-11-14 08:14 | XMS_ITS | Encounter Summary ---
Author Organization [facility] Address [address] [place] [address] Care Team Providers Care Bus And Rail Operator Name Role Phone Osiris Sanchez MD Primary Care Provider [phone] Jose Mcguire MD Primary Care Provider Gela Vandana Tovar MD Primary Care Provider [phone] Norman Arita MD Primary Care Provider [phone] Encounter Details Date Type Department Care Team (Late st Contact Info) Description 07/17/2013 Orders Only [facility] [address] [place] [phone] Cedric Carter MD [facility] [address] [address] Social History Tobacco Use Types Packs/Day Years [...] 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 * CULTURE, URINE, ROUTINE (07/17/2013 5:14 PM EDT) Bacteria culture (Urine) SEE NOTE [facility] Comment: {CULTURE, URINE, ROUTINE {[id number]) CULTURE, URINE, ROUTINE MICRO NUMBER: [id number] TEST STATUS: FINAL SPECIMEN SOURCE: URINE SPECIMEN QUALITY: ADEQUATE RESULT: No Growth 07/17/2013 5:14 PM EDT 07/17/2013 5:47 PM EDT Narrative Resulting Agency Comment [id number] Cedric Carter MD LABORATORY Final Resul t [facility] [address] [place] [address] * (ABNORMAL) URINALYSIS, MICROSCOPIC (07/17/2013 5:14 PM EDT) WBC (Urine) 0-5 < OR = 5 /HPF [facility] Comment:{WBC {[id number]) Epithelial cells.squamous (Urine sed) 6-10(A) < OR = 5 /HPF [facility] Comment:{SQUAMOUS EPITHELIAL CELLS {[id number]) Bacteria (Urine) FEW(A) NONE SEEN /HPF [facility] Comment:{BACTERIA {[id number]) Service comment 01 MANY MUCOUS THREADS [facility] Comment:{COMMENTS {[id number]) Service comment 01 See Below [facility] Comment: {NOTE {[id number]) This urine was analyzed for the presence of WBC, RBC, bacteria, casts, and other formed elements. Only those elements seen were reported. 07/17/2013 5:14 PM EDT 07/17/2013 5:47 PM EDT Narrative Resulting Agency Comment [id number] Cedric Carter MD LAB SAME DAY RESULT Final R esult Performing Organization Address [facility] Co de Phone Number [facility] [address] [place] [address] * CULTURE, HERPES SIMPLEXVIRUS WITH TYPING (07/17/2013 4:51 PM EDT) Herpes simplex virus identified SEE NOTE [facility] Comment: {HERPES SIMPLEX VIRUS CULTURE W/RFL TO TYPING {[id number]) HERPES SIMPLEX VIRUS CULTURE W/RFL TO TYPING MICRO NUMBER: [id number] TEST STATUS: FINAL SPECIMEN SOURCE: NOT GIVEN SPECIMEN QUALITY: ADEQUATE HSV CULTURE: Not isolated 07/17/2013 4:51 PM EDT 07/17/2013 5:09 PM EDT Narrative Resulting Agency Comment [id number] Cedric Carter MD LABORATORY Final Resul t Performing Organization Address [facility] Co de Phone Number [facility] [address] [place] [address] * BV/VAGINITIS PANELDNA PROBE (07/17/2013 4:51 PM EDT) Trichomonas vaginalis rRNA (Genital) NOT DETECTED NOT DETECTED [facility] Comment:{TRICHOMONAS: {[id number]) Gardnerella vaginalis rRNA (Genital) NOT DETECTED NOT DETECTED [facility] Comment:{GARDNERELLA: {[id number]) Yecenia sp rRNA (Vag) NOT DETECTED NOT DETECTED [facility] Comment:{YECENIA: {[id number]) 07/17/2013 4:51 PM EDT 07/17/2013 5:09 PM EDT Narrative Resulting Agency Comment [id number] Cedric Carter MD LABORATORY Final Resul t Performing Organization Address [facility] Co de Phone Number [facility] [address] [place] [address] * WET PREP (07/17/2013 4:51 PM EDT) Specimen source NOT GIVEN [facility] Comment:{SOURCE: {[id number]) Microscopic observation NO CLUE CELLS SEEN [facility] Comment: {RESULT: {[id number]) NO TRICHOMONAS VAGINALIS SEEN. NO FUNGAL ELEMENTS SEEN. 07/17/2013 4:51 PM EDT 07/17/2013 5:09 PM EDT Narrative Resulting Agency Comment [id number] us Cedric Carter MD LAB SAME DAY RESULT Final R esult [facility] [address] [place] [address] documented in this encounter Visit Diagnoses Diagnosis [...] documented as of this encounter Care Teams Bus And Rail Operator Relationship Specialty Start Date End Date Osiris Sanchez MD [address] [place] [address] PCP - General 07/24/06 06/09/15 Jose Mcguire MD PCP - General Internal Medicine 06/10/15 05/19/19 Vandana Pierce MD PCP - General Family Medicine 05/20/19 08/03/20 [place] [address] PCP - General Internal Medicine 08/04/20 03/04/22 documented as of this encounter
--- OUTSIDE RECORDS SUMMARY | 2024-11-14 08:14 | XMS_ITS | Encounter Summary ---
Author Organization [facility] Address [address] [place] [address] Care Team Providers Care Signal Constructor Name Role Phone Osiris Sanchez MD Primary Care Provider [phone] Jose Mcguire MD Primary Care Provider Gela Vandana Tovar MD Primary Care Provider [phone] Norman Arita MD Primary Care Provider [phone] Encounter Details Date Type Department Care Team (Late st Contact Info) Description 02/21/2007 Orders Only May Internal Medicine [address] [place] [address] Osiris Sanchez MD [address] [place] [address] Social History Tobacco Use Types Packs/Day Years [...] 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 Procedure Name Priority Date/Time Associated Diagnosis Comments CULTURE, URINE Routine 02/21/2007 UTI (URINARY TRACT INFECTION) URINALYSIS,MICROSCO PIC ONLY STAT (All results called to provider) 02/21/2007 URINALYSIS, DIP ONLY ( SITE STAT ONLY) STAT (All results called to provider) 02/21/2007 UTI (URINARY TRACT INFECTION) documented in this encounter Results * Due to [place] [employer] law, this organization might not be sharing negative HIV tests. * URINALYSIS,MICROSCOPIC ONLY (02/21/2007) WBC (URINE) 0-4 0-4/HPF [facility] (CLIA# [id number]) RBC (Urine Sed) 0 0-3/HPF [facility] (CLIA# [id number]) EPITHELIAL CELLS.SQUAMOUS (URINE SED) 0-5 0-5/HPF [facility] (CLIA# [id number]) EPITHELIAL CELLS.TRANSITIO NAL (URINE SED) 0 0-5/HPF [facility] (CLIA# [id number]) EPITHELIAL CELLS.RENAL (URINE SED) 0 0-3/HPF [facility] (CLIA# [id number]) BACTERIA (URINE) NONE SEEN NONE SEEN [facility] (CLIA# [id number]) 02/21/2007 02/22/2007 1:0 8 AM EST us Osiris Sanchez MD LAB SAME DAY RESULT Final Resul t [facility] (CLIA# [id number]) [address] [place] [address] * (ABNORMAL) CULTURE, URINE (02/21/2007) URINE CULTURE CLEAN VOID SEE TEXT(A) [facility] (CLIA# [id number]) Comment: SOURCE: URINE 1,000-10,000 CFU/ML GROUP B STREPTOCOCCUS ADDITIONAL ORGANISM(S), <10,000 CFU/ML. MAY REPRESENT NORMAL DEBI CONTAMINATION. NO FURTHER TESTING. 02/21/2007 02/22/2007 1:0 8 AM EST Osiris Sanchez MD LABORATORY Final Result Performing Organization Address [facility] Co de Phone Number [facility] (CLIA# [id number]) [address] [place] [address] * URINALYSIS, DIP ONLY ( SITE STAT ONLY) (02/21/2007) COLOR (URINE) YELLOW YELLOW [facility] (CLIA# [id number]) APPEARANCE (URINE) CLEAR CLEAR [facility] (CLIA# [id number]) SPECIFIC GRAVITY 1.010 1.001 - 1.035 [facility] (CLIA# [id number]) PH (URINE) 7.0 5.0 - 8.0 [facility] (CLIA# [id number]) PROTEIN (URINE) NEG NEG [facility] (CLIA# [id number]) GLUCOSE (URINE) NEG NEG [facility] (CLIA# [id number]) Ketones (Urine) NEG NEG [facility] (CLIA# [id number]) BILIRUBIN (URINE) NEG NEG [facility] (CLIA# [id number]) BLOOD (URINE) TRACE NEG [facility] (CLIA# [id number]) WBC (URINE) TRACE NEG [facility] (CLIA# [id number]) NITRITE (URINE) NEG NEG [facility] (CLIA# [id number]) 02/21/2007 02/22/2007 1:0 8 AM EST Osiris Sanchez MD LAB SAME DAY RESULT Final Resul t Performing Organization Address [facility] Co de Phone Number [facility] (CLIA# [id number]) [address] [place] [address] documented in this encounter Visit Diagnoses Diagnosis [...] documented as of this encounter Care Teams Signal Constructor Relationship Specialty Start Date End Date Osiris Sanchez MD [address] [place] [address] PCP - General 07/24/06 06/09/15 Jose Mcguire MD PCP - General Internal Medicine 06/10/15 05/19/19 Vandana Pierce MD PCP - General Family Medicine 05/20/19 08/03/20 Norman Arita MD [address] [place] [address] PCP - General Internal Medicine 08/04/20 03/04/22 documented as of this encounter
--- OUTSIDE RECORDS SUMMARY | 2024-11-14 08:14 | XMS_ITS | Encounter Summary ---
Author Organization [facility] Address [address] [place] [address] Care Team Providers Care Assistant Paralegal Name Role Phone Osiris Sanchez MD Primary Care Provider [phone] Jose Mcguire MD Primary Care Provider Gela Vandana Tovar MD Primary Care Provider [phone] Norman Arita MD Primary Care Provider [phone] Encounter Details Date Type Department Care Team (Late st Contact Info) Description 04/01/2007 Orders Only May Internal Medicine [address] [place] [address] Osiris Sanchez MD [address] [place] [address] Social History Tobacco Use Types Packs/Day Years [...] 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 Procedure Name Priority Date/Time Associated Diagnosis Comments BASIC METABOLIC PANEL Routine 04/01/2007 VAGINAL YEAST INFECTION CBC 5 PART DIFF Routine 04/01/2007 VAGINAL YEAST INFECTION CARDIAC RISK/LIPID PROFILE I Routine 04/01/2007 VAGINAL YEAST INFECTION documented in this encounter Results * Due to [place] [employer] law, this organization might not be sharing negative HIV tests. * (ABNORMAL) CARDIAC RISK/LIPID PROFILE I (04/01/2007) CHOLESTEROL, TOTAL 175 125 - 200 MG/DL [facility] (CLIA# [id number]) TRIGLYCERIDES 150(H) 30 - 149 MG/DL [facility] (CLIA# [id number]) HDL-CHOLESTEROL 36(L) 40 - 77 MG/DL [facility] (CLIA# [id number]) LDL-CHOLESTEROL 109 62 - 130 MG/DL [facility] (CLIA# [id number]) Comment: RISK CATEGORY: LDL-CHOLESTEROL GOAL CHD AND CHD RISK EQUIVALENTS: <100 MULTIPLE (2+) FACTORS: <130 ZERO TO ONE RISK FACTOR: <160 CHD RELATIVE RISK RATIO (TOTAL/HDL) 4.86 0.0 - 5.0 [facility] (CLIA# [id number]) Comment:(1.2 X AVERAGE) 04/01/2007 04/01/2007 12: 10 PM EST us Osiris Sanchez MD LABORATORY Final Result [facility] (CLIA# [id number]) [address] [place] [address] * BASIC METABOLIC PANEL (04/01/2007) CALCIUM 8.9 8.6 - 10.2 MG/DL [facility] (CLIA# [id number]) BUN 7 7 - 25 MG/DL [facility] (CLIA# [id number]) CREATININE 0.70 0.50-1.30/ 1.20 MG/DL [facility] (CLIA# [id number]) BUN/Creatinine Ratio 10 6 - 25 [facility] (CLIA# [id number]) Glucose 88 65 - 99 MG/DL [facility] (CLIA# [id number]) SODIUM 139 135 - 146 MMOL/L [facility] (CLIA# [id number]) POTASSIUM 3.9 3.5 - 5.3 MMOL/L [facility] (CLIA# [id number]) CHLORIDE 105 98 - 110 MMOL/L [facility] (CLIA# [id number]) CARBON DIOXIDE 26 21 - 33 MMOL/L [facility] (CLIA# [id number]) 04/01/2007 04/01/2007 12: 10 PM EST Osiris Sanchez MD LAB SAME DAY RESULT Final Resul t [facility] (CLIA# [id number]) [address] [place] [address] * (ABNORMAL) CBC 5 PART DIFF (04/01/2007) WHITE BLOOD COUNT 3.8 3.8 - 10.8 THOUS/UL [facility] (CLIA# [id number]) RBC 4.40 3.80 - 5.10 MIL/UL [facility] (CLIA# [id number]) Hemoglobin 12.7 11.7 - 15.5 G/DL [facility] (CLIA# [id number]) HCT (HEMATOCRIT) 37.3 35.0 - 45.0 % [facility] (CLIA# [id number]) MCV 84.7 80.0 - 100.0 FL [facility] (CLIA# [id number]) MCH 28.8 27.0 - 33.0 [facility] (CLIA# [id number]) MCHC 34.0 32.0 - 36.0 G/DL [facility] (CLIA# [id number]) BAND % 0 0 - 5 % [facility] (CLIA# [id number]) NEUTROPHIL % 42(L) 48 - 75 % [facility] (CLIA# [id number]) LYMPHOCYTE % 45(H) 17 - 40 % [facility] (CLIA# [id number]) MONOCYTE % 9 0 - 14 % [facility] (CLIA# [id number]) EOSINOPHIL % 3 0 - 5 % [facility] (CLIA# [id number]) BASOPHIL % 1 0 - 3 % [facility] (CLIA# [id number]) ATYPICAL LYMPHOCYTE % 0 0 - 5 % [facility] (CLIA# [id number]) PLATELETS 148 140 - 400 THOUS/UL [facility] (CLIA# [id number]) BANDS # 0 0 - 750 CELLS/MCL [facility] (CLIA# [id number]) NEUTROPHILS # 1596 1500 - 7800 CELLS/MCL [facility] (CLIA# [id number]) LYMPHOCYTES # 1710 850 - 3900 CELLS/MCL [facility] (CLIA# [id number]) MONOCYTES # 342 200 - 950 CELLS/MCL [facility] (CLIA# [id number]) EOSINOPHILS # 114 15 - 550 CELLS/MCL [facility] (CLIA# [id number]) BASOPHILS # 38 0 - 200 CELLS/MCL [facility] (CLIA# [id number]) ATYPICAL LYMPHOCYTES # 0 0 - 200 /UL [facility] (CLIA# [id number]) RDW 12.8 11.0 - 15.0 % [facility] (CLIA# [id number]) MPV 9.8 7.5 - 11.5 FL [facility] (CLIA# [id number]) 04/01/2007 04/01/2007 12: 10 PM EST us Osiris Sanchez MD LAB SAME DAY RESULT Final Resul t [facility] (CLIA# [id number]) [address] [place] [address] documented in this encounter Visit Diagnoses Diagnosis [...] as of this encounter Care Teams Assistant Paralegal Relationship Specialty Start Date End Date Osiris Sanchez MD [address] [place] [address] PCP - General 07/24/06 06/09/15 Jose Mcguire MD PCP - General Internal Medicine 06/10/15 05/19/19 Vandana Pierce MD PCP - General Family Medicine 05/20/19 08/03/20 Norman Arita MD [address] [place] [address] PCP - General Internal Medicine 08/04/20 03/04/22 documented as of this encounter
--- OUTSIDE RECORDS SUMMARY | 2024-11-14 08:14 | XMS_ITS | Encounter Summary ---
Author Organization [facility] Address [address] [place] [address] Care Team Providers Care Transition Mgr Rn Name Role Phone Osiris Sanchez MD Primary Care Provider [phone] Jose Mcguire MD Primary Care Provider Gela Vandana Tovar MD Primary Care Provider [phone] Norman Arita MD Primary Care Provider [phone] Encounter Details Date Type Department Care Team (Late st Contact Info) Description 07/09/2013 Orders Only May Internal Medicine [address] [place] [address] Osiris Sanchez MD [address] [place] [address] Social History Tobacco Use Types Packs/Day Years [...] 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 Procedure Name Priority Date/Time Associated Diagnosis Comments HSV 1 AND 2 IGG HERPESELECT SPECIFIC ANTIBODY Routine 07/09/2013 3:48 PM EDT Screening for STD (sexually transmitted disease) documented in this encounter Results * Due to [facility] law, this organization might not be sharing negative HIV tests. * (ABNORMAL) HSV 1 AND 2 IGG HERPESELECT SPECIFIC ANTIBODY (07/09/2013 3:48 PM EDT) Herpes Simplex Virus 1 IgG 4.64(H) [facility] Comment:{HSV 1 IGG TYPE SPEC IFIC AB {[id number]) Herpes simplex virus 2 Ab.IgG 1.07(H) [facility] Comment: {HSV 2 IGG TYPE SPECIFIC AB {[id number]) Value Interpretation ----- <0.90 Negative 0.90-1.10 Equivocal [...] 10:03 PM EDT Narrative Resulting Agency Comment [id number] Osiris Sanchez MD LABORATORY Final Result [facility] [address] [place] [address] documented in this encounter Visit Diagnoses Diagnosis [...] documented as of this encounter Care Teams Transition Mgr Rn Relationship Specialty Start Date End Date Osiris Sanchez MD [address] [place] [address] PCP - General 07/24/06 06/09/15 Jose Mcguire MD PCP - General Internal Medicine 06/10/15 05/19/19 Vandana Pierce MD PCP - General Family Medicine 05/20/19 08/03/20 Norman Arita MD [address] [place] [address] PCP - General Internal Medicine 08/04/20 03/04/22 documented as of this encounter
--- OUTSIDE RECORDS SUMMARY | 2024-11-14 08:14 | XMS_ITS | Encounter Summary ---
Author Organization [facility] Address [address] [place] [address] Care Team Providers Care Instructor Painting Name Role Phone Osiris Sanchez MD Primary Care Provider [phone] Jose Mcguire MD Primary Care Provider Gela Vandana Tovar MD Primary Care Provider [phone] Norman Arita MD Primary Care Provider [phone] Encounter Details Date Type Department Care Team (Late st Contact Info) Description 08/12/2013 Orders Only [facility] Internal Medicine [address] [place] [address] Osiris Sanchez MD [address] [place] [address] Social History Tobacco Use Types Packs/Day Years [...] 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 * TSH, 3RD GENERATION (08/12/2013 11:34 AM EDT) TSH 1.24 mIU/L [facility] Comment: {TSH {[id number]) Reference Range > or = 20 Years 0.40-4.50 Ranges First trimester 0.26-2.66 Second trimester 0.55-2.73 Third trimester 0.43-2.91 08/12/2013 11:3 4 AM EDT 08/12/2013 5:53 PM EDT Osiris Sanchez MD LABORATORY Final Result Performing Organization Address City/[facility]/ZIP Co de Phone Number [facility] [address] [place] [address] * T4, FREE, SERUM (08/12/2013 11:34 AM EDT) FT4 1.0 0.8 - 1.8 ng/dL [facility] Comment:{T4, FREE {[id number]) 08/12/2013 11:3 4 AM EDT 08/12/2013 5:53 PM EDT Narrative Resulting Agency Comment [id number] Osriis Sanchez MD LABORATORY Final Result Performing Organization Address [facility] Co de Phone Number [facility] [address] [place] [address] * BASIC METABOLIC PANEL WITH (GFR) (08/12/2013 11:34 AM EDT) Glucose 82 65 - 99 mg/dL [facility] Comment: {GLUCOSE {[id number]) Fasting reference interval Urea Nitrogen Blood (BUN) 10 7 - 25 mg/dL [facility] Comment:{UREA NITROGEN (BUN) {[id number]) Creatinine 0.69 0.50 - 1.10 mg/dL [facility] Comment:{CREATININE {[id number]) GFR 106 > OR = 60 mL/min/1. 73m2 [facility] Comment:{eGFR NON-AFR. AMERI CAN {[id number]) GFR () 123 > OR = 60 mL/min/1. 73m2 [facility] Comment:{eGFR AMERIC AN {[id number]) BUN/Creatinine Ratio NOT APPLICABLE 6 - 22 (calc) [facility] Comment:{BUN/CREATININE RATI O {[id number]) Sodium 142 135 - 146 mmol/L [facility] Comment:{SODIUM {[id number]) Potassium 4.5 3.5 - 5.3 mmol/L [facility] Comment:{POTASSIUM {[id number]) Chloride 107 98 - 110 mmol/L [facility] Comment:{CHLORIDE {[id number]) Carbon dioxide 24 19 - 30 mmol/L [facility] Comment:{CARBON DIOXIDE {[id number]) Calcium 9.2 8.6 - 10.2 mg/dL [facility] Comment:{CALCIUM {[id number]) 08/12/2013 11:3 4 AM EDT 08/12/2013 [...] needs for GFR calculation. Resulting Agency Comment [id number] us Osiris Sanchez MD LABORATORY Final Result [facility] [address] [place] [address] * (ABNORMAL) LIPID PANEL WITH REFLEX TO DIRECT LDL (08/12/2013 11:34 AM EDT) Cholesterol 218(H) 125 - 200 mg/dL [facility] Comment:{CHOLESTEROL, TOTAL {[id number]) HDL Cholesterol 47 > OR = 46 mg/dL [facility] Comment:{HDL CHOLESTEROL {[id number]) Triglyceride 169(H) <150 mg/dL [facility] Comment:{TRIGLYCERIDES {[id number]) LDL Cholesterol 137(H) <130 mg/dL (calc) [facility] Comment: {LDL-CHOLESTEROL {[id number]) Desirable range <100 mg/dL for patients with CHD or diabetes and <70 mg/dL for diabetic patients with known heart disease. CHOL/HDL Ratio 4.6 < OR = 5.0 (calc) [facility] Comment:{CHOL/HDLC RATIO {[id number]) Cholesterol Non-HDL 171(H) mg/dL (calc) [facility] Comment: {NON HDL CHOLESTEROL {[id number]) Target for non-HDL cholesterol is 30 mg/dL higher than LDL cholesterol target. 08/12/2013 11:3 4 AM EDT 08/12/2013 5:53 PM EDT Narrative Resulting Agency Comment [id number] us Osiris Sanchez MD LABORATORY Final Result [facility] [address] [place] [address] * CBC INCLUDES DIFFERENTIAL AND PLATELET COUNT (08/12/2013 11:34 AM EDT) WBC 4.2 3.8 - 10.8 Thousand/u L [facility] Comment:{WHITE BLOOD CELL CO UNT {[id number]) RBC 4.57 3.80 - 5.10 Million/uL [facility] Comment:{RED BLOOD CELL COUN T {[id number]) Hemoglobin 12.5 11.7 - 15.5 g/dL [facility] Comment:{HEMOGLOBIN {[id number]) Hematocrit 37.4 35.0 - 45.0 % [facility] Comment:{HEMATOCRIT {[id number]) MCV 81.7 80.0 - 100.0 fL [facility] Comment:{MCV {[id number]) MCH 27.3 27.0 - 33.0 pg [facility] Comment:{MCH {[id number]) MCHC 33.5 32.0 - 36.0 g/dL [facility] Comment:{MCHC {[id number]) RDW 13.9 11.0 - 15.0 % [facility] Comment:{RDW {[id number]) PLT 147 140 - 400 Thousand/u L [facility] Comment:{PLATELET COUNT {[id number]) MPV 10.0 7.5 - 11.5 fL [facility] Comment:{MPV {[id number]) Neutrophils # 2062 1500 - 7800 cells/uL [facility] Comment:{ABSOLUTE NEUTROPHIL S {[id number]) Lymphocytes # 1621 850 - 3900 cells/uL [facility] Comment:{ABSOLUTE LYMPHOCYTE S {[id number]) Monocytes # 256 200 - 950 cells/uL [facility] Comment:{ABSOLUTE MONOCYTES {[id number]) Eosinophils # 252 15 - 500 cells/uL [facility] Comment:{ABSOLUTE EOSINOPHIL S {[id number]) Basophils # 8 0 - 200 cells/uL [facility] Comment:{ABSOLUTE BASOPHILS {[id number]) Neutrophils % 49.1 % [facility] Comment:{NEUTROPHILS {[id number]) Lymphocytes % 38.6 % [facility] Comment:{LYMPHOCYTES {[id number]) Monocytes % 6.1 % [facility] Comment:{MONOCYTES {[id number]) Eosinophils % 6.0 % [facility] Comment:{EOSINOPHILS {[id number]) Basophils % 0.2 % [facility] Comment:{BASOPHILS {[id number]) 08/12/2013 11:3 4 AM EDT 08/12/2013 5:53 PM EDT Narrative Resulting Agency Comment [id number] us Osiris Sanchez MD LAB SAME DAY RESULT Final Resul t [facility] [address] [place] [address] documented in this encounter Visit Diagnoses Diagnosis [...] documented as of this encounter Care Teams Instructor Painting Relationship Specialty Start Date End Date Osiris Sanchez MD [address] [place] [address] PCP - General 07/24/06 06/09/15 Jose Mcguire MD PCP - General Internal Medicine 06/10/15 05/19/19 Vandana Pierce MD PCP - General Family Medicine 05/20/19 08/03/20 Norman Arita MD [address] [place] [address] PCP - General Internal Medicine 08/04/20 03/04/22 documented as of this encounter
--- OUTSIDE RECORDS SUMMARY | 2024-11-14 08:14 | XMS_ITS | Encounter Summary ---
Author Organization [facility] Address [address] [place] [address] Care Team Providers Care Honey Extractor Name Role Phone Osiris Sanchez MD Primary Care Provider [phone] Jose Mcguire MD Primary Care Provider Gela Vandana Tovar MD Primary Care Provider [phone] Norman Arita MD Primary Care Provider [phone] Reason for Visit * Reason Onset Date Comments Results 06/10/2007 Encounter Details Date Type Department Care Team (Late st Contact Info) Description 06/10/2007 Telephone [facility] [address] [place] [phone] Kiki France LPN Results Social History Tobacco [...] 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
--- OUTSIDE RECORDS SUMMARY | 2024-11-14 08:14 | XMS_ITS | Encounter Summary ---
Author Organization [facility] Address [address] [place] [address] Care Team Providers Care Tankroom Worker Name Role Phone Osiris Sanchez MD Primary Care Provider [phone] Jose Mcguire MD Primary Care Provider Gela Vandana Tovar MD Primary Care Provider [phone] Norman Arita MD Primary Care Provider [phone] Encounter Details Date Type Department Care Team (Late st Contact Info) Description 02/07/2007 Orders Only [facility] Internal Medicine [address] [place] [address] Osiris Sanchez MD [address] [place] [address] Social History Tobacco Use Types Packs/Day Years [...] 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 Procedure Name Priority Date/Time Associated Diagnosis Comments CHANI PREP Routine 02/07/2007 VAGINITIS VAGINAL DISCHARGE VAGINAL YEAST INFECTION CULTURE,VAGINAL Routine 02/07/2007 VAGINITIS VAGINAL DISCHARGE VAGINAL YEAST INFECTION documented in this encounter Results * Due to [place] [employer] law, this organization might not be sharing negative HIV tests. * (ABNORMAL) CULTURE,VAGINAL (02/07/2007) Result(s) SEE TEXT(A) [facility] (CLIA# [id number]) Comment: SOURCE: VAGINA MODERATE YEAST MANY GROUP B STREPTOCOCCUS PLUS NORMAL DEBI 02/07/2007 02/07/2007 2:5 8 PM EST Osiris Sanchez MD LABORATORY Final Result Performing Organization Address [facility] de Phone Number [facility] (CLIA# [id number]) [address] [place] [address] * CAHNI PREP (02/07/2007) FUNGUS (CHANI WET PREP) SEE TEXT [facility] (CLIA# [id number]) Comment: SOURCE: UNKNOWN NO FUNGAL ELEMENTS SEEN NO CLUE CELLS PRESENT 02/07/2007 02/07/2007 2:5 8 PM EST Osiris Sanchez MD LABORATORY Final Result Performing Organization Address [facility] de Phone Number [facility] (CLIA# [id number]) [address] [place] [address] documented in this encounter Visit Diagnoses Diagnosis [...] documented as of this encounter Care Teams Tankroom Worker Relationship Specialty Start Date End Date Osiris Sanchez MD [address] [place] [address] PCP - General 07/24/06 06/09/15 Jose Mcguire MD PCP - General Internal Medicine 06/10/15 05/19/19 Vandana Pierce MD PCP - General Family Medicine 05/20/19 08/03/20 Norman Arita MD [address] [place] [address] PCP - General Internal Medicine 08/04/20 03/04/22 documented as of this encounter
--- OUTSIDE RECORDS SUMMARY | 2024-11-14 08:14 | XMS_ITS | Encounter Summary ---
Author Organization [facility] Address [address] [place] [address] Care Team Providers Care Principal Architect Name Role Phone Osiris Sanchez MD Primary Care Provider [phone] Jose Mcguire MD Primary Care Provider Gela Vandana Tovar MD Primary Care Provider [phone] Norman Arita MD Primary Care Provider [phone] Encounter Details Date Type Department Care Team (Late st Contact Info) Description 10/08/2007 Orders Only [facility] [address] [place] [phone] Shalom Sandra MD Social History Tobacco Use [...] 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 Not [...] Vaginosis WET PREP/HANGING DROP (ONLY AVAILABLE TO [facility]) Routine 10/08/2007 UTI (Urinary Tract Infection) Bacterial [...] * WET PREP/HANGING DROP (ONLY AVAILABLE TO [facility]) (10/08/2007) WET PREP SEE TEXT Comment: SOURCE: [...] documented as of this encounter Care Teams Principal Architect Relationship Specialty Start Date End Date Osiris Sanchez MD [address] [place] [address] PCP - General 07/24/06 06/09/15 Jose Mcguire MD PCP - General Internal Medicine 06/10/15 05/19/19 Vandana Pierce MD PCP - General Family Medicine 05/20/19 08/03/20 Norman Arita MD [address] [place] [address] PCP - General Internal Medicine 08/04/20 03/04/22 documented as of this encounter
--- OUTSIDE RECORDS SUMMARY | 2024-11-14 08:15 | XMS_ITS | Encounter Summary ---
Author Organization [facility] Address [address] [place] [address] Care Team Providers Care Flag Signalman Name Role Phone Vandana Pierce MD Primary Care Provider [phone] Norman Arita MD Primary Care Provider [phone] Reason for Visit * Reason Comments Mammogram Encounter Details Date Type Department Care Team (Late st Contact Info) Description 06/04/2020 Telephone [facility]. 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
--- OUTSIDE RECORDS SUMMARY | 2024-11-14 08:15 | XMS_ITS | Encounter Summary ---
Author Organization [facility] Address [address] [place] [address] Care Team Providers Care Dobby Loom Chain Pegger Name Role Phone Norman Arita MD Primary Care Provider [phone] Encounter Details Date Type Department Care Team (Late st Contact Info) Description 04/19/2021 Orders Only [facility] [address] [place] [address] Norman Arita MD [address] [place] [address] Social History Tobacco Use Types Packs/Day Years Used Date Smoking Tobacco: Never Smokeless Tobacco: Never Alcohol Use Standard Drinks/Week Comments Yes 0 (1 standard drink = 0.6 oz pur e alcohol) socially PHQ-2 Answer Date [facility] SEVERITY SCORE (Range 0-6) 0 03/07/2021 Comments No Sex and Gender Information Value Date Recorded Sex Assigned at Female 04/12/2020 8:08 AM EST Legal Sex Female 4:49 AM EDT Gender Identity Female 11/03/2019 2:02 PM EDT Sexual Orientation Straight 04/12/2020 8: 08 AM EST 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 Procedure Name Priority Date/Time Associated Diagnosis Comments VENIPUNCTURE Routine 04/19/2021 7:35 AM EST Mixed hyperlipidemia documented in this encounter Results * Due to [place] [employer] law, this organization might not be sharing [...] LDL-C. Junior SS et al. RASHI. 2013;310(19): 6105-7924 (http://education.Color Eight/faq/WUK314) CHOL/HDL Ratio 6.7(H) <5.0 (calc) [facility] Cholesterol Non-HDL 218(H) <130 mg/dL (calc) [facility] Comment: For patients with diabetes plus 1 major ASCVD risk factor, treating to a non-HDL-C goal of <100 mg/dL (LDL-C of <70 mg/dL) is considered a therapeutic option. 04/19/2021 7:35 AM EST 04/19/2021 9:33 AM EST Narrative Resulting Agency Comment [id number] us Norman Arita MD LABORATORY Final Result Performing Organization Address City/State/[facility] Co de Phone Number [facility] [address] [place] [address] documented in this encounter Visit Diagnoses Diagnosis Mixed hyperlipidemia documented in this encounter Additional Health Concerns Infection Onset Date Last Indicated Resolved Time COVID-19 Confirmed 03/09/2021 03/09/2021 8:12 PM EDT documented as of this encounter Care Teams Dobby Loom Chain Pegger Relationship Specialty Start Date End Date Norman Arita MD [address] [place] [address] PCP - General Internal Medicine 08/04/20 03/04/22 documented as of this encounter
--- OUTSIDE RECORDS SUMMARY | 2024-11-14 08:15 | XMS_ITS | Encounter Summary ---
Author Organization [facility] Address [address] [place] [address] Care Team Providers Care Returned Goods Receiving Clerk Name Role Phone Norman Arita MD Primary Care Provider [phone] Encounter Details Date Type Department Care Team (Late st Contact Info) Description 03/08/2021 Orders Only [facility] [address] [place] [phone] Norman Arita MD [address] [place] [address] Social History Tobacco Use Types Packs/Day Years Used Date Smoking Tobacco: Never Smokeless Tobacco: Never Alcohol Use Standard Drinks/Week Comments Yes 0 (1 standard drink = 0.6 oz pur e alcohol) socially PHQ-2 Answer Date [facility]ed [facility] SEVERITY SCORE (Range 0-6) 0 03/07/2021 Comments No Sex and Gender Information Value Date Recorded Sex Assigned at Female 04/12/2020 8:08 AM EST Legal Sex Female 4:49 AM EDT Gender Identity Female 11/03/2019 2:02 PM EDT Sexual Orientation Straight 04/12/2020 8: 08 AM EST 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 According to [place] Diabetes Association (ADA) guidelines, hemoglobin A1c <7.0% represents optimal control in non- diabetic patients. Different metrics may apply to specific patient populations. Standards of Medical Care in Diabetes(ADA). Estimated Average Glucose 111 mg/dL (calc) [facility] 03/08/2021 11:1 8 AM EST 03/09/2021 12:33 AM EST Narrative Resulting Agency Comment [id number] us Norman Arita MD LABORATORY Final Result [facility] [address] [place] [address] * (ABNORMAL) LIPID PANEL WITH REFLEX TO [...] LDL-C. Junior BASILIO et al. RASHI. 2013;310(19): 9503-5087 (http://education.thrdPlace.[employer] Hasee computer/faq/TCW454) CHOL/HDL Ratio 7.0(H) <5.0 (calc) [facility] [...] 12:33 AM EST Narrative Resulting Agency Comment [id number] Norman Arita MD LABORATORY Final Result Performing Organization Address [facility] de Phone Number [facility] [address] [place] [address] * (ABNORMAL) HEPATIC FUNCTION PANEL (ALT,AST,ALK PH,BILI'S,TP,ALB) [...] 12:33 AM EST Narrative Resulting Agency Comment [id number] Norman Arita MD LABORATORY Final Result Performing Organization Address City/[facility]/ZIP Co de Phone Number [facility] [address] [place] [address] * BASIC METABOLIC PANEL WITH (GFR) (03/08/2021 11:18 AM EST) Glucose 88 65 - 99 mg/dL [facility] Comment:Fasting reference in terval Urea Nitrogen Blood (BUN) 9 7 - 25 mg/dL [facility] Creatinine 0.77 0.50 - 1.05 mg/dL [facility] Comment: For patients >49 years of age, the reference limit for Creatinine is approximately 13% higher for people identified as -[place]i. EGFR 89 > OR = 60 mL/min/1 [...] needs for GFR calculation. Resulting Agency Comment [id number] us Norman Arita MD LABORATORY Final Result [facility] [address] [place] [address] * THYROID STIMULATING HORMONE (TSH) WITH FREE T4 REFLEX, SERUM (03/08/2021 11:18 AM EST) TSH 1.31 mIU/L [facility] Comment: Reference Range > or = 20 Years 0.40-4.50 Ranges First trimester 0.26-2.66 Second trimester 0.55-2.73 Third trimester 0.43-2.91 03/08/2021 11:1 8 AM EST 03/09/2021 12:33 AM EST Narrative Resulting Agency Comment [id number] us Norman Arita MD LABORATORY Final Result [facility] [address] [place] [address] documented in this encounter Visit Diagnoses Diagnosis Hypothyroidism Unspecified hypothyroidism Mixed hyperlipidemia Screening for diabetes mellitus documented in this encounter Additional Health Concerns Infection Onset Date Last Indicated Resolved Time COVID-19 Confirmed 03/09/2021 03/09/2021 8:12 PM EDT documented as of this encounter Care Teams Returned Goods Receiving Clerk Relationship Specialty Start Date End Date Norman Arita MD [address] [place] [address] PCP - General Internal Medicine 08/04/20 03/04/22 documented as of this encounter
--- OUTSIDE RECORDS SUMMARY | 2024-11-14 08:15 | XMS_ITS | Encounter Summary ---
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 Pierce at [place]. I told my panel was closed. I do not feel comfortable refilling the medications without seeing patient first. She should follow-up at [place] * Telephone Encounter - Shara Thompson - 08/11/2020 8:38 AM EDT Any special requests or concerns? none Faxed/E-prescribed medication renewal request(s) for Tahirdino Antonyn 50 y.o. female received from pharmacy. Verified and Confirmed pharmacy for patient. Last CPE with this specialty: 11/25/2019 Last OV with this specialty: 05/28/2020 Next OV: Future Appointments Date Time Provider Department Phone 09/07/20 1:30 PM ANJU Ramires [facility] Otolaryngology [address] 03/08/21 2:05 PM Norman Arita MD [facility] [phone] 04/19/21 7:00 AM MANAGER POWER MAMMOGRAPHY ROOM2 [facility] Mammography [phone] Pertinent lab results: Lab Results Component Value [...] management with yoga, exercise, meditation 11/25/2019: discussed predatory animal exterminator risks of benzodiazepines and that they are [...] a week. Has pulse ox at home, mgyrdif96/99%. No acute symptoms on video visit today. [...] having frequent outbreaks then call or send RVX message and will switch to suppressive therapy. [...] as of this encounter Care Teams Head Scorer Relationship Specialty Start Date End Date Norman Arita MD [address] [place] [address] PCP - General Internal Medicine 08/04/20 03/04/22 documented as of this encounter
--- OUTSIDE RECORDS SUMMARY | 2024-11-14 08:15 | XMS_ITS | Encounter Summary ---
Author Organization [facility] Address [address] [place] [address] Care Team Providers Care Senior Windows Systems Engineer Name Role Phone Jose Mcguire MD Primary Care Provider Vandana Vazquez MD Primary Care Provider [phone] Norman Arita MD Primary Care Provider [phone] Encounter Details Date Type Department Care Team (Late st Contact Info) Description 07/14/2016 Orders Only [facility] Pulmonary [address] [place] [address] Simeon Nolan, DIRECTOR OF ASSISTED LIVING [address] [place] [address] Social History Tobacco Use Types Packs/Day Years [...] as of this encounter Care Teams Senior Windows Systems Engineer Relationship Specialty Start Date End Date Jose Mcguire MD PCP - General Internal Medicine 06/10/15 05/19/19 Vandana Pierce MD PCP - General Family Medicine 05/20/19 08/03/20 Norman Arita MD [address] [place] [address] PCP - General Internal Medicine 08/04/20 03/04/22 documented as of this encounter
--- OUTSIDE RECORDS SUMMARY | 2024-11-14 08:15 | XMS_ITS | Clinical Summary ---
Author Organization [facility] Address [address] [place] [address] Care Team Providers Care Shell Trim Tool Setter Name Role Phone Norman Arita MD Primary Care Provider [phone] Allergies Active Allergy Reactions Criticality Noted Date [...] Completed 03/08/2020, 11/25/2019 Insurance HMO/POS Care Teams Shell Trim Tool Setter Relationship Specialty Start Date End Date Norman Arita MD PCP - General Family Medicine 01/12/21
--- OUTSIDE RECORDS SUMMARY | 2024-11-14 08:15 | XMS_ITS | Clinical Summary ---
Author Organization [employer] Address [address] [facility] 7t [place] [address] Care Team Providers Care Well Logging Mud Analysis Captain Name Role Phone Tee Thomas MD Primary [...] AM EDT): Used to [place], they were monitoring her with liver u/s [...] PM EDT): Last pcp visit Novemeber 2023 [place] [facility]: - Hospitalization: hysterectomy 2010 Pmhx: htn, cholesterol, anxiety, insomnia, palpitation, fatty liver disease Pshx: hysterectomy/tab 2010, chest lipoma 2021, All:Latex Meds: as aboive Mammogram may 2023 Colonoscopy 2023 Menarche 11 A0 Encounters Date Type Department Care Team Description 11/13/2024 11:20 AM EDT Office Visit [facility] [address] [place] [address] Kory Hammonds MD Epigastric pain (Primary Dx) 11/13/2024 Travel 10/21/[address] [facility] [address] [place] [address] Tee Thomas MD 10/20/[address] [facility] [address] [place] [address] Tee Thomas MD 10/13/[address] [facility] [address] [place] [address] Jesse Melendez, EDWIN 09/15/2024 Results Follow-Up [facility] [address] [place] [address] Tee Thomas MD CBC auto differential, Comprehensive Metabolic Panel, Lipid Panel, Standard, Additional followed-up results: 4 09/12/2024 9:45 AM EDT Office Visit [facility] [address] [place] [address] Tee Thomas MD Primary hypertension (Primary Dx); ALVAREZ (nonalcoholic steatohepatitis); Mixed hyperlipidemia 09/12/2024 Travel 09/05/2024 Travel 09/04/2024 Patient Outreach [facility] [address] [place] [phone] Tee Thomas MD Pre-visit Planning (Pre visit [...] Blood Count 6.0 4.8 - 10.8 X10*3/uL [facility] Red Blood Count 4.70 4.20 - 5.50 X10*6/uL [facility] Hemoglobin 13.3 12.0 - 16.0 g/dl [facility] Hematocrit 40.3 37.0 - 47.0 % [facility] Mean Corpuscular Volume 85.7 80.0 - 98.0 fL [facility] Mean Corpuscular Hemoglobin 28.3 27.0 - 33.0 pg [facility] Mean Corpuscular HGB Conc 33.0 31.0 - 35.0 g/dl [facility] Red Cell Distribution Width 13.4 11.0 - 16.0 % [facility] Platelet Count 170 160 - 400 X10*3/uL [facility] Mean Platelet Volume 11.5 9.4 - 12.3 fL [facility] Neutrophils Percent Auto 52.8 45 - 73 % [facility] Imm Gran Pct Auto 0.2 0.0 - 0.4 % [facility] Lymphocytes Percent Auto 30.0 20 - 40 % [facility] Monocytes Percent Auto 9.7 2 - 11 % [facility] Eosinophils Percent Auto 7.0(H) 0 - 4 % [facility] Basophils Percent Auto 0.3 0 - 2 % [facility] NRBC Pct Auto 0.0 0.0 - 0.2 /100WBC [facility] Neutrophils Absolute Auto 3.2 2.0 - 8.3 x10*3/uL [facility] Imm Gran Abs Auto 0.01 0.00 - 0.03 X10*3/uL [facility] Lymphocytes Absolute Auto 1.8 1.2 - 4.9 X10*3/uL [facility] Monocytes Absolute Auto 0.6 0.1 - 1.2 X10*3/uL [facility] Eosinophils Absolute Auto 0.4 0.0 - 0.4 X10*3/uL [facility] Basophils Absolute Auto 0.0 0.0 - 0.2 X10*3/uL [facility] NRBC Abs Auto 0.000 0.0 - 0.012 X10*3/uL [facility] Blood Venous blood specimen / Unknown 11/13/2024 11:52 AM EDT 11/13/2024 1:03 PM EDT us Kory Hammonds MD LAB BLOOD ORDERABLES Final Resul t Performing Organization Address City/[facility] Co de Phone Number [facility] [address] [place] [phone] * Lipase (11/13/2024 11:52 AM EDT) Lipase 25 8 - 78 U/L [facility] Blood Venous blood specimen / Unknown 11/13/2024 11:52 AM EDT 11/13/2024 1:03 PM EDT us Kory Hammonds MD LAB BLOOD ORDERABLES Final Resul t Performing Organization Address [facility] Co de Phone Number [facility] [address] [place] [phone] * Amylase (11/13/2024 11:52 AM EDT) Amylase 78 28 - 100 U/L [facility] Blood Venous blood specimen / Unknown 11/13/2024 11:52 AM EDT 11/13/2024 1:03 PM EDT us Kory Hammonds MD LAB BLOOD ORDERABLES Final Resul t Performing Organization Address [facility] de Phone Number [facility] [address] [place] [phone] * (ABNORMAL) Comprehensive Metabolic Panel (11/13/2024 11:52 AM EDT) Only the most recent of2 resultswithin the time period is included. Sodium 140 135 - 145 mmol/L [facility] Potassium 3.9 3.3 - 5.1 mmol/L [facility] Chloride 103 96 - 108 mmol/L [facility] Carbon Dioxide 30(H) 22 - 29 mmol/L [facility] Anion Gap 11(L) 12 - 20 [facility] Urea Nitrogen (BUN) 8(L) 9 - 16 mg/dL [facility] Creatinine, Serum 0.75 0.5 - 1.4 mg/dL [facility] Estimated Glomerular Filt Rate >60 [facility] Comment:Chronic Kidney Disea se: Estimated GFR < 60 mL/min/1.05s7Iakxyu Kidney Disease: Estimated GFR < 15 mL/min/1.73m2 Glucose 85 60 - 115 mg/dL [facility] Calcium 9.7 8.4 - 10.2 mg/dL [facility] Bilirubin, Total 1.0 0.0 - 1.0 mg/dL [facility] Aspartate Amino Transferase 46(H) 5 - 31 U/L [facility] Alanine Aminotransferase 40(H) 0 - 31 U/L [facility] Total Protein 8.1(H) 6.5 - 8.0 g/dL [facility] Albumin Level 4.6 3.5 - 5.0 g/dL [facility] Alkaline Phosphatase 126(H) 39 - 117 U/L [facility] Blood Venous blood specimen / Unknown 11/13/2024 11:52 AM EDT 11/13/2024 1:03 PM EDT us Kory Hammonds MD LAB BLOOD ORDERABLES Final Resul t [facility] [address] [place] [phone] * TSH W/Reflex to FT4 (09/13/2024 10:15 AM EDT) TSH reflex Free T4 1.11 0.32 - 4.0 uIU/mL [facility] Blood Venous blood specimen / Unknown 09/13/2024 10:15 AM EDT 09/13/2024 10:15 AM EDT Tee Chiang MD LAB BLOOD ORDERABL ES Final Result Performing Organization Address [facility] Co de Phone Number [facility] [address] [place] [phone] * Hepatitis C Antibody with Reflex to HCV, RNA, Quantitative, Real-Time PCR (09/13/2024 10:15 AM EDT) Hepatitis C Antibody Nonreactive Nonreactive [facility] Comment:Antibodies to HCV no t detected; does not exclude early acuteHCV infection. Blood Venous blood specimen / Unknown 09/13/2024 10:15 AM EDT 09/13/2024 10:15 AM EDT Tee Chiang MD LAB BLOOD ORDERABL ES Final Result Performing Organization Address [facility] de Phone Number [facility] [address] [place] [phone] * HIV-1/2 Antigen and Antibodies, Fourth Generation, with Reflexes (09/13/2024 10:15 AM EDT) HIV AB/AG Nonreactive Nonreactive [facility] Comment:HIV-1 p24 Ag and/or HIV-1/HIV-2 Ab not detected.A test result that is nonreactive does not exclude thepossibility of exposure to or infection with HIV-1 and/orHIV-2. Nonreactive results in this assay for individualswith prior exposure to HIV-1 and/or HIV-2 may be due toantigen and antibody levels that are below the limit ofdetection of this assay.The [employer] HIV Ag/Ab Combo assay result andsupplemental assay results should be interpreted inconjunction with the patient's clinical presentation,history and other laboratory results. If the results areinconsistent with clinical evidence, additional testing issuggested to confirm the result. Blood Venous blood specimen / Unknown 09/13/2024 10:15 AM EDT 09/13/2024 10:15 AM EDT us Tee Chiang MD LAB BLOOD ORDERABL ES Final Result Performing Organization Address [facility] de Phone Number [facility] [address] [place] [phone] * Hemoglobin A1c (09/13/2024 10:15 AM EDT) Hemoglobin A1c 5.2 <6.0 % [facility] Comment:Hemoglobin A1C Refer ence Range Adults: 4.8 - 6.0 % Non diabetic: < 6.0 % Goal: < 7.0 %Additional Action Suggested: > 8.0 %Note: Hemoglobin A1c results are invalid for patients with abnormal amounts of HbF. Blood transfusions may impact the HbA1c concentration in the patient sample. Estimated Average Glucose 103 mg/dL [facility] Comment:eAG = Estimated ave rage glucose which is %A1C expressed asaverage glucose, using the formula of the N0B-HulkfkzYlsqgeq Glucose study (ADAG), Diabetes Care, Vol.31,#8,2007 Blood Venous blood specimen / Unknown 09/13/2024 10:15 AM EDT 09/13/2024 10:15 AM EDT us Tee Chiang MD LAB BLOOD ORDERABL ES Final Result Performing Organization Address [facility] Co de Phone Number [facility] [address] [place] [phone] * (ABNORMAL) Lipid Panel, Standard (09/13/2024 10:15 AM EDT) Triglycerides 121 <150 mg/dL [facility] Comment:Desirable Triglyceri de: less than 150 mg/dLBorderline High Triglyceride 150-199 mg/dLHigh Triglyceride: 200-499 mg/dLVery High Triglyceride: greater than or equal to 5OO mg/dL Cholesterol 177 <200 mg/dL [facility] Comment:Desirable Cholestero l: less than 200 mg/dLBorderline High Cholesterol: 200-239 mg/dLHigh Cholesterol: greater than 239 mg/dL LDL Cholesterol Calculated 112(H) <100 mg/dL [facility] Comment:Desirable LDL: less than 100 mg/dLNear Optimal/Above Optimal LDL: 110- 129 mg/dLBorderline High LDL: 130-159 mg/dLHigh LDL: 160-189 mg/dLVery High LDL: greater than or equal to 190 mg/dL HDL Cholesterol 41 >40 mg/dL [facility] Comment:Desirable HDL: great er than 40 mg/dL Note: This HDL assay may give artificially low results in patients with liver disease. Blood Venous blood specimen / Unknown 09/13/2024 10:15 AM EDT 09/13/2024 10:15 AM EDT us Tee Chiang MD LAB BLOOD ORDERABL ES Final Result Performing Organization Address City/State/[facility] Co de Phone Number [facility] [address] [place] [phone] * BI Mammogram Screening Tomosynthesis Bilateral (08/08/2024 3:55 PM EDT) Anatomical Region Laterality Modality Breast Bilateral Mammography 08/08/2024 3:55 PM EDT Narrative 08/22/2024 8:53 AM EDT [address] [place] [address] Mammography Report Signed Patient: Johana Kyle MR#: [id number] 86 : 1970 Acct:[id number] Age/Sex: 54 / F ADM Date: 08/08/24 Loc: HO.MAMMO Attending Dr: Tee Chiang MD Ordering Physician: Tee Thomas MD Res ults: 1Negative Date of Service: 08/08/24 Follow Up: 1 Year From Orig inal Mammogram Procedure(s): MM tomosynthesis screening BI Accession Number(s): [id number] cc: Tee Thomas MD EXAMINATION: MM SCREENING [...] 08/22/24 0850 DD/ 1555 TD/TT: 08/08/24 1618 Tableau Analyst: Procedure Note Donotuseinterpreter, [facility] [address] [place] [address] Mammography Report Signed Patient: Johana KyleMR#: [id number] 86 : 1970Acct:[id number] Age/Sex: 54 / FADM Date: 08/08/24 Loc: HO.MAMMO Attending Dr: Tee Chiang MD Ordering Physician: Tee Thomas ults: 1Negative Date of Service: 08/08/24Follow Up: 1 Year From Orig inal Mammogram Procedure(s): MM tomosynthesis screening BI Accession Number(s): [id number] cc: Tee Thomas MD EXAMINATION: MM SCREENING [...] 08/22/24 0850 DD/ 1555 TD/TT: 08/08/24 1618 Tableau Analyst: Tee Chiang MD IMG BI PROCEDURES Final Result from Last 3 Months or Most Recently Relevant to Health Maintenance Insurance C3 Care Teams Well Logging Mud Analysis Captain Relationship Specialty Start Date End Date Tee Thomas MD [address] [place] [address] PCP - General Internal Medicine 06/25/24
--- OUTSIDE RECORDS SUMMARY | 2024-11-14 08:15 | XMS_ITS | Encounter Summary ---
Author Organization [facility] Address [address] [place] [address] Care Team Providers Care Metal Tank Erector Name Role Phone Vandana Pierce MD Primary Care Provider [phone] Norman Arita MD Primary Care Provider Reason for Visit * Reason Onset Date Comments Refill Request 06/28/2020 Encounter Details Date Type Department Care Team (Late st Contact Info) Description 06/28/2020 Refill [facility] [address] [place] [phone] Davis Damon MD [address] [place] [phone] Refill Request Social History Tobacco Use Types [...] Date Job End Date financial counselor, 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
--- OUTSIDE RECORDS SUMMARY | 2024-11-14 08:15 | XMS_ITS | Encounter Summary ---
Author Organization [employer] Address [address] [facility] 7t [place] [address] Care Team Providers Care Family Practice Physician Assistant Name Role Phone Tee Thomas MD Primary Care Prov ider Reason for Visit * Reason Onset Date Comments Nurse Triage 07/14/2024 Encounter Details Date Type Department Care Team ([facility] st Contact Info) Description 07/14/2024 Telephone [facility] [address] [place] [address] Tee Thomas MD [address] [place] [address] Nurse Triage Social History Tobacco Use Types [...] original note were not included. [facility]ana [facility] (supporting Tee Chiang, Triage call regarding Pt portal messages. Pt reports sore throat and cough since 5/10/25. Pt reports pain with swallowing and now left ear hurts as well with some itchiness and tingling. Neg for drainage from ear, fever. ASK apt in [facility] 340pm 07/14/24. Pt agrees with disposition. [...] to hurt but no fever. Johana Sanchez [facility] Nurses (supporting Tee Chiang [...] she suggest not to call her private. [phone] * Telephone Encounter - Manuel Massey - 07/14/2024 9:18 AM EDT Symptom: Sore Throat Outcome: Schedule an urgent appointment (within 4 hours) or talk to a nurse or provider soon Reason: Trouble drinking The caller accepted this outcome. documented in this encounter Plan of Treatment Not on file documented as of this encounter Visit Diagnoses Not on filedocumented in this encounter Care Teams Family Practice Physician Assistant Relationship Specialty Start Date End Date Tee Thomas MD [address] [place] [phone] PCP - General Internal Medicine 06/25/24 documented as of this encounter
--- OUTSIDE RECORDS SUMMARY | 2024-11-14 08:15 | XMS_ITS | Encounter Summary ---
Author Organization [facility] Address [address] [place] [address] Care Team Providers Care Fairmont Gold Attendant Name Role Phone Jose Mcguire MD Primary Care Provider Gela Vandana Tovar MD Primary Care Provider [phone] Norman Arita MD Primary Care Provider [phone] Encounter Details Date Type Department Care Team (Late Contact Info) Description 01/31/2017 Orders Only [facility] [address] [place] [phone] Jose Mcguire MD Social History Tobacco Use [...] this encounter Procedures * Due to [place] state law, this organization might not be [...] this encounter Results * Due to [place] state law, this organization might not be [...] needs for GFR calculation. Resulting Agency Comment [id number] Jose Mcguire MD LABORATORY Final Result Performing Organization Address [facility] de Phone Number [facility] [address] [place] [address] * ALBUMIN (MICROALBUMIN), RANDOM URINE, WITH CREATININE (01/31/2017 7:09 AM EST) Creatinine (Urine) 219 20 - 320 mg/dL [facility] Albumin (Urine) 0.6 mg/dL [facility] Comment: Reference Range Not established [...] 12:23 PM EST Narrative Resulting Agency Comment [id number] Jose Mcguire MD LABORATORY Final Result Performing Organization Address [facility] de Phone Number [facility] [address] [place] [address] * (ABNORMAL) LIPID PANEL WITH REFLEX TO DIRECT LDL (01/31/2017 7:09 AM EST) Cholesterol 159 <200 mg/dL [facility] HDL Cholesterol 31(L) >50 mg/dL [facility] Triglyceride 214(H) <150 mg/dL [facility] [...] LDL-C. Junior BASILIO et al. RASHI. 2013;310(19): 3153-8159 (http://education.Dynamic Signal.Mailcloud/faq/NGI661) CHOL/HDL Ratio 5.1(H) <5.0 (calc) [facility] Cholesterol Non-HDL 128 <130 mg/dL (calc) [facility] Comment: For patients with diabetes plus 1 major ASCVD risk factor, treating to a non-HDL-C goal of <100 mg/dL (LDL-C of <70 mg/dL) is considered a therapeutic option. 01/31/2017 7:09 AM EST 01/31/2017 12:23 PM EST Narrative Resulting Agency Comment [id number] Jose Mcguire MD LABORATORY Final Result Performing Organization Address [facility] de Phone Number [facility] [address] [place] [address] * HEMOGLOBIN A1C (01/31/2017 7:09 AM EST) [...] diagnosis of diabetes in children. According to [place] Diabetes Association (ADA) guidelines, hemoglobin A1c <7.0% represents optimal control in non- diabetic patients. Different metrics may apply to specific patient populations. Standards of Medical Care in Diabetes(ADA). Estimated Average Glucose 122 mg/dL (calc) [facility] 01/31/2017 7:09 AM EST 01/31/2017 12:23 PM EST Narrative Resulting Agency Comment [id number] Jose Mcguire MD LABORATORY Final Result Performing Organization Address [facility] de Phone Number [facility] [address] [place] [address] documented in this encounter Visit Diagnoses Diagnosis [...] documented as of this encounter Care Teams Fairmont Gold Attendant Relationship Specialty Start Date End Date Jose Mcguire MD PCP - General Internal Medicine 06/10/15 05/19/19 Vandana Pierce MD PCP - General Family Medicine 05/20/19 08/03/20 Norman Arita MD [address] [place] [address] PCP - General Internal Medicine 08/04/20 03/04/22 documented as of this encounter
--- OUTSIDE RECORDS SUMMARY | 2024-11-14 08:15 | XMS_ITS | Encounter Summary ---
Author Organization [facility] Address [address] [place] [address] Care Team Providers Care Wooden Fence Erector Name Role Phone Jose Mcguire MD Primary Care Provider Vandana Vazquez MD Primary Care Provider [phone] Norman Arita MD Primary Care Provider [phone] Reason for Referral * OUTPT PROCEDURES AND DIAGNOSTICS (Routine) - ZZ Not Required Specialty Diagnoses / Procedures Referred By Adiel tijerina Referred To Contact CT Scan Diagnoses Other nonspecific abnormal finding of lung field 06/06/17 DX IN [place] Procedures CT CHEST W/O CONTRAST (DX: F/U ABNL CHEST CT R91.8/ 793.2) (1 YR FROM LAST) Tommy Saldaña MD [address] [place] [address] Phone: tel: fax: Referral ID Status Reason Start Date Expiration Date Visits Requested Visits Authorized [id number] ZZ Not Required Continuity of Care 06/06/2017 1 1 Encounter Details Date Type Department Care Team ([facility] st Contact Info) Description 06/27/2016 Orders Only [facility] [address] [place] [phone] Tommy Saldaña MD [address] [place] [phone] Social History Tobacco Use Types Packs/Day Years [...] of this encounter Results * Due to [place] state law, this organization might not be sharing negative HIV tests. * (ABNORMAL) CT CHEST W/O CONTRAST (DX: F/U ABNL CHEST CT R91.8/ 793.2) (1 YR FROM LAST) FC (06/25/2017 7:20 AM EDT) FLEISCHNER 99(A) [facility] Anatomical Region Laterality Modality CHEST [...] documented as of this encounter Care Teams Wooden Fence Erector Relationship Specialty Start Date End Date Jose Mcguire MD PCP - General Internal Medicine 06/10/15 05/19/19 Vandana Pierce MD PCP - General Family Medicine 05/20/19 08/03/20 Norman Arita MD [address] [place] [address] PCP - General Internal Medicine 08/04/20 03/04/22 documented as of this encounter
--- OUTSIDE RECORDS SUMMARY | 2024-11-14 08:15 | XMS_ITS | Encounter Summary ---
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 none Patient, Tahir Kyle 50 y.o. female sent a [employer] message with request to renew medication(s). When do you need the medication? within 48 hours Last CPE with this specialty: 11/25/2019 Last OV with this specialty: 05/28/2020 Next OV: Future Appointments Date Time Provider Department Phone 09/07/20 1:30 PM ANJU Ramires [facility] Otolaryngology [address] 03/08/21 2:05 PM Norman Arita MD [facility] [phone] 04/19/21 7:00 AM SALES CONSULTANT RESIDENTIAL MANAGER MAMMOGRAPHY ROOM2 [facility] Mammography [phone] Verified and Confirmed pharmacy for patient. Pertinent [...] management with yoga, exercise, meditation 11/25/2019: discussed longshore equipment operator risks of benzodiazepines and that they are [...] a week. Has pulse ox at home, quvivwl98/99%. No acute symptoms on video visit today. [...] having frequent outbreaks then call or send [employer] message and will switch to suppressive therapy. [...] documented as of this encounter Care Teams Through Operator Relationship Specialty Start Date End Date Norman Arita MD [address] [place] [address] PCP - General Internal Medicine 08/04/20 03/04/22 documented as of this encounter
--- OUTSIDE RECORDS SUMMARY | 2024-11-14 08:16 | XMS_ITS | Encounter Summary ---
Author Organization [facility] Address [address] [place] [address] Care Team Providers Care Corporate Securities Research Analyst Name Role Phone Norman Arita MD Primary Care Provider [phone] Encounter Details Date Type Department Care Team (Late st Contact Info) Description 08/08/2021 Orders Only [facility] [address] [place] [address] Vandana Freed, KANDIS [address] [place], [place] [id number] Social History Tobacco Use Types Packs/Day Years Used Date Smoking Tobacco: Never Smokeless Tobacco: Never Alcohol Use Standard Drinks/Week Comments Yes 0 (1 standard drink = 0.6 oz pur e alcohol) socially PHQ-2 Answer Date [facility] SEVER[facility] SC[facility] (Range 0-6) 0 03/07/2021 Comments No Sex and Gender Information Value Date Recorded Sex Assigned at Female 04/12/2020 8:08 AM EST Legal Sex Female 4:49 AM EDT Gender Identity Female 11/03/2019 2:02 PM EDT Sexual Orientation Straight 04/12/2020 8: 08 AM EST 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
--- OUTSIDE RECORDS SUMMARY | 2024-11-14 08:16 | XMS_ITS | Encounter Summary ---
Author Organization [facility] Address [address] [place] [address] Care Team Providers Care Copy Chief Name Role Phone Jose Mcguire MD Primary Care Provider Gela Vandana Tovar MD Primary Care Provider [phone] Norman Arita MD Primary Care Provider [phone] Encounter Details Date Type Department Care Team (Late Contact Info) Description 10/05/2016 Orders Only [facility] Medicine [address] [place] [address] Jose Mcguire MD Social History Tobacco Use [...] documented as of this encounter Care Teams Copy Chief Relationship Specialty Start Date End Date Jose Mcguire MD PCP - General Internal Medicine 06/10/15 05/19/19 Vandana Pierce MD PCP - General Family Medicine 05/20/19 08/03/20 Norman Arita MD [address] [place] [address] PCP - General Internal Medicine 08/04/20 03/04/22 documented as of this encounter
--- OUTSIDE RECORDS SUMMARY | 2024-11-14 08:16 | XMS_ITS | Encounter Summary ---
Author Organization [employer] Address [address] [facility] 7 [place] [address] Care Team Providers Care Lead Section Supervisor Name Role Phone Tee Thomas MD Primary Care Prov ider Encounter Details Date Type Department Care Team (Latest Contact Info) Description 09/15/2024 Results Follow-Up [facility] [address] [place], [place] [phone] Tee Thomas MD [address] [place] [address] CBC auto differential, Comprehensive Metabolic Panel, Lipid [...] as of this encounter Care Teams Lead Section Supervisor Relationship Specialty Start Date End Date Tee Thomas MD [address] [place] [address] PCP - General Internal Medicine 06/25/24 documented as of this encounter
--- OUTSIDE RECORDS SUMMARY | 2024-11-14 08:16 | XMS_ITS | Encounter Summary ---
Author Organization [facility] Address [address] [place] [address] Care Team Providers Care Manager [place] Name Role Phone Jose Mcguire MD Primary Care Provider Vandana Vazquez MD Primary Care Provider [phone] Norman Arita MD Primary Care Provider [phone] Encounter Details Date Type Department Care Team (Late st Contact Info) Description 09/15/2016 Telephone [facility] Ophthalmology [address] [place] [address] Homa Palu MD [facility]. [address] [address] Social History Tobacco Use Types Packs/Day Years [...] as of this encounter Care Teams Manager [place] Relationship Specialty Start Date End Date Jose Mcguire MD PCP - General Internal Medicine 06/10/15 05/19/19 Vandana Pierce MD PCP - General Family Medicine 05/20/19 08/03/20 Norman Arita MD [address] [place] [address] PCP - General Internal Medicine 08/04/20 03/04/22 documented as of this encounter
--- OUTSIDE RECORDS SUMMARY | 2024-11-14 08:16 | XMS_ITS | Encounter Summary ---
Author Organization [facility] Address [address] [place] [address] Care Team Providers Care Fnp Name Role Phone Jose Mcguire MD Primary Care Provider Vandana Vazquez MD Primary Care Provider [phone] Norman Arita MD Primary Care Provider [phone] Reason for Referral * (Routine) - Incomplete Specialty Diagnoses / Procedures Referred By Adiel tijerina Referred To Contact Diagnoses Varicose vein of leg Procedures REQUEST FOR VENOUS REFLUX STUDY - RIGHT LEG (DX: VARICOSE VEINS) NON-FC Jose Mcguire MD Referral ID Status Reason Start Date Expiration Date V isits Requested Visits Authorized [id number] Incomplete 10/05/2016 1 1 * (Routine) - Incomplete Specialty Diagnoses / Procedures Referred By Adiel tijerina Referred To Contact Diagnoses Varicose vein of leg Procedures REQUEST FOR VENOUS REFLUX STUDY - LEFT LEG (DX: VARICOSE VEINS) NON-FC Jose Mcguire MD Referral ID Status Reason Start Date Expiration Date V isits Requested Visits Authorized [id number] Incomplete 10/05/2016 1 1 Encounter Details Date Type Department Care Team (Late st Contact Info) Description 10/05/[address] Internal Medicine [address] [place] [address] Jose Mcguire MD Social History Tobacco Use [...] documented as of this encounter Care Teams Fnp Relationship Specialty Start Date End Date Jose Mcguire MD PCP - General Internal Medicine 06/10/15 05/19/19 Vandana Pierce MD PCP - General Family Medicine 05/20/19 08/03/20 Norman Arita MD [address] [place] [address] PCP - General Internal Medicine 08/04/20 03/04/22 documented as of this encounter
--- OUTSIDE RECORDS SUMMARY | 2024-11-14 08:16 | XMS_ITS | Encounter Summary ---
Author Organization [facility] Address [address] [place] [address] Care Team Providers Care Glue Machine Operator Name Role Phone Norman Arita MD Primary Care Provider [phone] Encounter Details Date Type Department Care Team (Late st Contact Info) Description 2021 Orders Only [facility] [address] [place] [address] Norman Arita MD [address] [place] [address] Social History Tobacco Use Types Packs/Day Years Used Date Smoking Tobacco: Never Smokeless Tobacco: Never Alcohol Use Standard Drinks/Week Comments Yes 0 (1 standard drink = 0.6 oz pur e alcohol) socially PHQ-2 Answer Date Recorded [facility] SEVERITY SCORE (Range 0-6) 0 [...] of this encounter Procedures * Due to [place] [employer] law, this organization might not be sharing negative HIV tests. Procedure Name Priority Date/Time Associated Diagnosis Comments HEPATIC FUNCTION PANEL (ALT,AST,ALK PH,BILI'S,TP,ALB) Routine 2021 7:18 AM EDT Mixed hyperlipidemia VENIPUNCTURE Routine 2021 7:18 AM EDT Mixed hyperlipidemia documented in this encounter Results * Due to [place] [employer] law, this organization might not be [...] 1:31 AM EDT Narrative Resulting Agency Comment [id number] us Norman Arita MD LABORATORY Final Result [facility] [address] [place] [address] * (ABNORMAL) LIPID PANEL WITH REFLEX TO [...] LDL-C. Junior BASILIO et al. RASHI. 2013;310(19): 0272-5504 (http://education.[employer]/faq/CST707) CHOL/HDL Ratio 3.0 <5.0 (calc) [facility] Cholesterol Non-HDL 87 <130 mg/dL (calc) [facility] Comment: For patients with diabetes plus 1 major ASCVD risk factor, treating to a non-HDL-C goal of <100 mg/dL (LDL-C of <70 mg/dL) is considered a therapeutic option. 2021 7:18 AM EDT 06/25/2021 1:31 AM EDT Narrative Resulting Agency Comment [id number] us Norman Arita MD LABORATORY Final Result Performing Organization Address City/State/[facility] Co de Phone Number [facility] [address] [place] [address] documented in this encounter Visit Diagnoses Diagnosis Mixed hyperlipidemia documented in this encounter Care Teams Glue Machine Operator Relationship Specialty Start Date End Date Norman Arita MD [address] [place] [address] PCP - General Internal Medicine 08/04/20 03/04/22 documented as of this encounter
--- OUTSIDE RECORDS SUMMARY | 2024-11-14 08:16 | XMS_ITS | Encounter Summary ---
Author Organization [facility] Address [address] [place] [address] Care Team Providers Care Nailer Operator Name Role Phone Jose Mcguire MD Primary Care Provider Vandana Vazquez MD Primary Care Provider [phone] Norman Arita MD Primary Care Provider [phone] Encounter Details Date Type Department Care Team (Late Contact Info) Description 09/22/2016 Orders Only [facility] Internal Medicine [address] [place] [address] Jose Mcguire MD Social History Tobacco Use [...] encounter Procedures * Due to [place] [employer] law, this organization might not be sharing negative HIV tests. Procedure Name Priority Date/Time Associated Diagnosis Comments LIPID PANEL WITH REFLEX TO DIRECT LDL Routine 09/22/2016 8:15 AM EDT Lipids blood increased documented in this encounter Results * Due to [place] [employer] law, this organization might not be [...] 4:26 PM EDT Narrative Resulting Agency Comment [id number] Jose Mcguire MD LABORATORY Final Result [facility] [address] [place] [id number] documented in this encounter Visit Diagnoses Diagnosis [...] documented as of this encounter Care Teams Nailer Operator Relationship Specialty Start Date End Date Jose Mcguire MD PCP - General Internal Medicine 06/10/15 05/19/19 Vandana Pierce MD PCP - General Family Medicine 05/20/19 08/03/20 Norman Arita MD [address] [place] [address] PCP - General Internal Medicine 08/04/20 03/04/22 documented as of this encounter
--- OUTSIDE RECORDS SUMMARY | 2024-11-14 08:16 | XMS_ITS | Encounter Summary ---
Author Organization [employer] Address [address] [facility] [address] 7[address] [place] [address] Care Team Providers Care Routing Equipment Tender Name Role Phone Tee Thomas MD Primary [...] documented as of this encounter Care Teams Routing Equipment Tender Relationship Specialty Start Date End Date Tee Thomas MD [address] [place] [address] PCP - General Internal Medicine 06/25/24 documented as of this encounter
--- OUTSIDE RECORDS SUMMARY | 2024-11-14 08:17 | XMS_ITS | Encounter Summary ---
Author Organization [facility] Address [address] [place] [address] Care Team Providers Care Oracle Financials Consultant Name Role Phone Osiris Sanchez MD Primary Care Provider [phone] Jose Mcguire MD Primary Care Provider Gela Vandana Tovar MD Primary Care Provider [phone] Norman Arita MD Primary Care Provider [phone] Encounter Details Date Type Department Care Team (Late st Contact Info) Description 09/15/2008 Orders Only [facility] [address] [place] [address] Osiris Sanchez MD [address] [place] [address] Social History Tobacco Use Types Packs/Day Years [...] 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
--- OUTSIDE RECORDS SUMMARY | 2024-11-14 08:17 | XMS_ITS | Encounter Summary ---
Author Organization [facility] Address [address] [place] [address] Care Team Providers Care Holter Technician Name Role Phone Osiris Sanchez MD Primary Care Provider [phone] Jose Mcguire MD Primary Care Provider Vandana Vazquez MD Primary Care Provider [phone] Norman Arita MD Primary Care Provider [phone] Reason for Referral * OUTPT PROCEDURES AND [...] Expiration Date V isits Requested Visits Authorized [id number] Closed Continuity of Care 12/29/2014 02/27/2015 1 1 Encounter Details Date Type Department Care Team (Late st Contact Info) Description 02/01/2014 Orders Only [facility] Pulmonary [address] [place] [address] Tommy Saldaña MD [address] [place] [address] Social History Tobacco Use Types Packs/Day Years [...] 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 * CT CHEST W/O CONTRAST (DX: F/U [facility] CHEST CT 793.2) (1 YR FROM LAST) FC (01/15/2015 4:47 PM EST) Pathologist [facility] BHARATH 9 Anatomical Region Laterality Modality CHEST [...] documented as of this encounter Care Teams Holter Technician Relationship Specialty Start Date End Date Osiris Sanchez MD [address] [place] [address] PCP - General 07/24/06 06/09/15 Jose Mcguire MD PCP - General Internal Medicine 06/10/15 05/19/19 Vandana Pierce MD PCP - General Family Medicine 05/20/19 08/03/20 Norman Arita MD [address] [place] [address] PCP - General Internal Medicine 08/04/20 03/04/22 documented as of this encounter
--- OUTSIDE RECORDS SUMMARY | 2024-11-14 08:17 | XMS_ITS | Encounter Summary ---
Author Organization [facility] Address [address] [place] [address] Care Team Providers Care Light Bulb Assembler Name Role Phone Osiris Sanchez MD Primary Care Provider [phone] Jose Mcguire MD Primary Care Provider Gela Vandana Tovar MD Primary Care Provider [phone] Norman Arita MD Primary Care Provider [phone] Reason for Visit * Reason Onset Date Comments Refill Request 02/07/2014 Encounter Details Date Type Department Care Team (Late st Contact Info) Description 02/07/2014 Refill [facility] [address] [place] [phone] Osiris Sanchez MD [address] [place] [address] Refill Request Social History Tobacco Use Types [...] 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
--- OUTSIDE RECORDS SUMMARY | 2024-11-14 08:17 | XMS_ITS | Encounter Summary ---
Author Organization [facility] Address [address] [place] [address] Care Team Providers Care Improvement Lead Name Role Phone Osiris Sanchez MD Primary Care Provider [phone] Jose Mcguire MD Primary Care Provider Gela Vandana Tovar MD Primary Care Provider [phone] Norman Arita MD Primary Care Provider [phone] Encounter Details Date Type Department Care Team (Late st Contact Info) Description 09/14/2008 Orders Only [facility] [address] [place] [phone] Afshin Martínez MD Social History Tobacco Use [...] 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 Not [...] MD LABORATORY Final Result Performing Organization Address City/State/[facility] Co de Phone Number [facility] [address] [place] [address] * (ABNORMAL) CULTURE, URINE (09/14/2008) URINE CULTURE [...] Performing Organization Address [facility] de Phone Number [facility] [address] [place] [address] * (ABNORMAL) URINALYSIS, DIPSTICK WITH REFLEX MICROSCOPIC [...] RESULT Final Re sult Performing Organization Address [facility] de Phone Number [facility] [address] [place] [address] documented in this encounter Visit Diagnoses Diagnosis [...] documented as of this encounter Care Teams Improvement Lead Relationship Specialty Start Date End Date Osiris Sanchez MD [address] [place] [address] PCP - General 07/24/06 06/09/15 Jose Mcguire MD PCP - General Internal Medicine 06/10/15 05/19/19 Vandana Pierce MD PCP - General Family Medicine 05/20/19 08/03/20 Norman Arita MD [address] [place] [address] PCP - General Internal Medicine 08/04/20 03/04/22 documented as of this encounter
--- OUTSIDE RECORDS SUMMARY | 2024-11-14 08:17 | XMS_ITS | Encounter Summary ---
Author Organization [facility] Address [address] [place] [address] Care Team Providers Care Mergers And Acquisitions Attorney Name Role Phone Osiris Sanchez MD Primary Care Provider [phone] Jose Mcguire MD Primary Care Provider Gela Vandana Tovar MD Primary Care Provider [phone] Norman Arita MD Primary Care Provider [phone] Encounter Details Date Type Department Care Team (Late st Contact Info) Description 08/24/2008 Orders Only [facility] [address] [place] [address] Osiris Sanchez MD [address] [place] [address] Social History Tobacco Use Types Packs/Day Years [...] 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 Not on file documented as of this encounter Plan of Treatment Not on file documented as of this encounter Procedures * Due to [place] [employer] law, this organization might not be sharing [...] this encounter Results * Due to [place] [employer] law, this organization might not be sharing [...] MD LABORATORY Final Result Performing Organization Address City/State/[facility] de Phone Number [facility] [address] [place] [address] * CBC 5 PART DIFF (08/24/2008) WHITE [...] RESULT Final Resul t [facility] [address] [place] [address] * BASIC METABOLIC PANEL W/GLOMERULAR FILTRATION RATE [...] MD LABORATORY Final Result [facility] [address] [place] [address] documented in this encounter Visit Diagnoses Diagnosis [...] documented as of this encounter Care Teams Mergers And Acquisitions Attorney Relationship Specialty Start Date End Date Osiris Sanchez MD [address] [place] [address] PCP - General 07/24/06 06/09/15 Jose Mcguire MD PCP - General Internal Medicine 06/10/15 05/19/19 Vandana Pierce MD PCP - General Family Medicine 05/20/19 08/03/20 Norman Arita MD [address] [place] [address] PCP - General Internal Medicine 08/04/20 03/04/22 documented as of this encounter
--- OUTSIDE RECORDS SUMMARY | 2024-11-14 08:17 | XMS_ITS | Encounter Summary ---
Author Organization [facility] Address [address] [place] [address] Care Team Providers Care Wellness Instructor Name Role Phone Osiris Sanchez MD Primary Care Provider [phone] Jose Mcguire MD Primary Care Provider Gela Vandana Tovar MD Primary Care Provider [phone] Norman Arita MD Primary Care Provider [phone] Reason for Referral * OUTPT PROCEDURES AND DIAGNOSTICS (Routine) - Closed Specialty Diagnoses / Procedures Referred By Adiel tijerina Referred To Contact CT Scan Diagnoses Nonspecific (abnormal) findings on radiological and other examination of other intrathoracic organs Procedures CT CHEST W/O CONTRAST (DX: F/U ABN CHEST CT 793.2) (1 YR FROM LAST) FC CT SCAN, THORAX; W/O CONTRAST Tommy Cunningham MD [address] [place] [address] Phone: tel: fax: Referral ID Status Reason Start Date Expiration Date V isits Requested Visits Authorized [id number] Closed Continuity of Care 01/15/2014 02/14/2014 1 1 Encounter Details Date Type Department Care Team ([facility] st Contact Info) Description 01/13/[address] 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 * (ABNORMAL) CT CHEST W/O CONTRAST (DX: F/U [facility] CHEST CT 793.2) (1 YR FROM LAST) (01/16/2014 3:47PM EST) Pathologist [facility] Angel SINHA 2(A) Anatomical Region Laterality Modality CHEST Computed Tomogra phy 01/20/2014 2:05 PM EST Narrative 01/20/2014 2:05 PM EST EXAM: CT CHEST W/O CONTRAST (DX: F/U [facility] CHEST CT 793.2) (1 YR FROM [...] EXAM: CT CHEST W/O CONTRAST (DX: F/U [facility] CHEST CT 793.2) (1 YR FROM LAST) FC CLINICAL HISTORY: F/U [facility] Chest CT TECHNIQUE: Volumetric imaging was performed [...] documented as of this encounter Care Teams Wellness Instructor Relationship Specialty Start Date End Date Osiris Sanchez MD [address] [place] [address] PCP - General 07/24/06 06/09/15 Jose Mcguire MD PCP - General Internal Medicine 06/10/15 05/19/19 Vandana Pierce MD PCP - General Family Medicine 05/20/19 08/03/20 Norman Arita MD [address] [place] [address] PCP - General Internal Medicine 08/04/20 03/04/22 documented as of this encounter
--- OUTSIDE RECORDS SUMMARY | 2024-11-14 08:17 | XMS_ITS | Encounter Summary ---
Author Organization [facility] Address [address] [place] [address] Care Team Providers Care Radio Installer Automobile Name Role Phone Osiris Sanchez MD Primary Care Provider [phone] Jose Mcguire MD Primary Care Provider Gela Vandana Tovar MD Primary Care Provider [phone] Norman Arita MD Primary Care Provider [phone] Encounter Details Date Type Department Care Team (Late st Contact Info) Description 01/05/2014 Orders Only [facility] IMAGING SCHEDULER [address] [facility] [address] [place] [address] Dee Mcdonald CRNP [address] [place] [address] Social History Tobacco Use Types Packs/Day Years [...] 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 * Catalina Mackenzie RN - 01/07/2014 8:31 AM ESTQuick Note: Results to PHP ARCHITECT & results released to pt via my chart documented in this encounter Plan of Treatment Not on file documented as of this encounter Procedures * Due to [place] rumr: turn off the lights law, this organization might not be sharing negative HIV tests. Procedure Name Priority Date/Time Associated Diagnosis Comments CULTURE, URINE, ROUTINE Routine 01/05/2014 9:21 AM EST Dysuria URINALYSIS, COMPLETE INCLUDES DIPSTICK AND MICROSCOPIC Routine 01/05/2014 9:21 AM EST Dysuria documented in this encounter Results * Due to [place] rumr: turn off the lights law, this organization might not be sharing negative HIV tests. * CULTURE, URINE, ROUTINE (01/05/2014 9:21 AM EST) Bacteria culture (Urine) SEE NOTE [facility] Comment: {CULTURE, URINE, ROUTINE {[id number]) CULTURE, URINE, ROUTINE MICRO NUMBER: [id number] TEST STATUS: FINAL SPECIMEN SOURCE: URINE SPECIMEN QUALITY: ADEQUATE RESULT: No Growth 01/05/2014 9:21 AM EST 01/05/2014 9:47 PM EST Narrative Resulting Agency Comment [id number] us Dee [facility] Final Resul t Performing Organization Address City/State/[facility] Co de Phone Number [facility] [address] [place] [address] * URINALYSIS, COMPLETE INCLUDES DIPSTICK AND MICROSCOPIC (01/05/2014 9:21 AM EST) Color (Urine) YELLOW YELLOW [facility] Comment:{COLOR {[id number]) Appearance (Urine) CLEAR CLEAR [facility] Comment:{APPEARANCE {[id number]) Specific gravity (Urine) 1.010 1.001 - 1.035 [facility] Comment:{SPECIFIC GRAVITY {[id number]) pH (Urine) 6.5 5.0 - 8.0 [facility] Comment:{PH {[id number]) Glucose (Urine) NEGATIVE NEGATIVE [facility] Comment:{GLUCOSE {[id number]) Bilirubin (Urine) NEGATIVE NEGATIVE [facility] Comment:{BILIRUBIN {[id number]) Ketones (Urine) NEGATIVE NEGATIVE [facility] Comment:{KETONES {[id number]) Hemoglobin (Urine) NEGATIVE NEGATIVE [facility] Comment:{OCCULT BLOOD {[id number]) Protein (Urine) NEGATIVE NEGATIVE [facility] Comment:{PROTEIN {[id number]) Nitrite (Urine) NEGATIVE NEGATIVE [facility] Comment:{NITRITE {[id number]) Leukocyte esterase (Urine) NEGATIVE NEGATIVE [facility] Comment:{LEUKOCYTE ESTERASE {[id number]) WBC (Urine) NONE SEEN < OR = 5 /HPF [facility] Comment:{WBC {[id number]) RBC (Urine Sed) NONE SEEN < OR = 3 /HPF [facility] Comment:{RBC {[id number]) Epithelial cells.squamous (Urine sed) 0-5 < OR = 5 /HPF [facility] Comment:{SQUAMOUS EPITHELIAL CELLS {[id number]) Bacteria (Urine) NONE SEEN NONE SEEN /HPF [facility] Comment:{BACTERIA {[id number]) Hyaline casts (Urine sed) NONE SEEN NONE SEEN /LPF [facility] Comment:{HYALINE CAST {[id number]) 01/05/2014 9:21 AM EST 01/05/2014 9:47 PM EST Narrative Resulting Agency Comment [id number] us Dee [facility] SAME DAY RESULT Final R esult [facility] [address] [place] [address] documented in this encounter Visit Diagnoses Diagnosis Dysuria documented in this encounter Additional Health Concerns Infection Onset Date Last Indicated Resolved Time COVID-19 Rule-Out 01/13/2020 01/13/2020 01/13/2020 2:43 PM EST COVID-19 Rule-Out 02/22/2020 02/22/2020 02/22/2020 5:30 PM EST COVID-19 Confirmed 02/22/2020 02/22/2020 1 8:12 PM EDT COVID-19 Confirmed 03/09/2021 03/09/2021 2 8:12 PM EDT documented as of this encounter Care Teams Radio Installer Automobile Relationship Specialty Start Date End Date Osiris Sanchez MD [address] [place] [address] PCP - General 07/24/06 06/09/15 Jose Mcguire MD PCP - General Internal Medicine 06/10/15 05/19/19 Vandana Pierce MD PCP - General Family Medicine 05/20/19 08/03/20 Norman Arita MD [address] [place] [address] PCP - General Internal Medicine 08/04/20 03/04/22 documented as of this encounter
--- OUTSIDE RECORDS SUMMARY | 2024-11-14 08:17 | XMS_ITS | Encounter Summary ---
Author Organization [facility] Address [address] [place] [address] Care Team Providers Care Enterprise Application Developer Name Role Phone Osiris Sanchez MD Primary Care Provider [phone] Jose Mcguire MD Primary Care Provider Gela Vandana Tovar MD Primary Care Provider [phone] Norman Arita MD Primary Care Provider [phone] Encounter Details Date Type Department Care Team (Late st Contact Info) Description 09/15/2008 Orders Only [facility] [address] [place] [phone] Afshin Martínez MD Social History Tobacco Use [...] 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 [...] MD LABORATORY Final Result Performing Organization Address City/State/[facility] Co de Phone Number [facility] [address] [place] [address] documented in this encounter Visit Diagnoses Diagnosis Acute pharyngitis documented in this encounter Additional Health Concerns Infection Onset Date Last Indicated Resolved Time COVID-19 Rule-Out 01/13/2020 01/13/2020 01/13/2020 2:43 PM EST COVID-19 Rule-Out 02/22/2020 02/22/2020 02/22/2020 5:30 PM EST COVID-19 Confirmed 02/22/2020 02/22/2020 1 8:12 PM EDT COVID-19 Confirmed 03/09/2021 03/09/2021 2 8:12 PM EDT documented as of this encounter Care Teams Enterprise Application Developer Relationship Specialty Start Date End Date Osiris Sanchez MD [address] [place] [address] PCP - General 07/24/06 06/09/15 Jose Mcguire MD PCP - General Internal Medicine 06/10/15 05/19/19 Vandana Pierce MD PCP - General Family Medicine 05/20/19 08/03/20 Norman Arita MD [address] [place] [address] PCP - General Internal Medicine 08/04/20 03/04/22 documented as of this encounter
--- OUTSIDE RECORDS SUMMARY | 2024-11-14 08:17 | XMS_ITS | Encounter Summary ---
Author Organization [facility] Address [address] [place] [address] Care Team Providers Care Fur Drummer Name Role Phone Osiris Sanchez MD Primary Care Provider [phone] Jose Mcguire MD Primary Care Provider Gela Vandana Tovar MD Primary Care Provider [phone] Norman Arita MD Primary Care Provider [phone] Reason for Visit * Reason Onset Date Comments Refill Request 12/23/2013 Encounter Details Date Type Department Care Team (Late st Contact Info) Description 12/23/2013 Refill July Internal Medicine [address] [place] [phone] Osiris Sanchez MD [address] [place] [address] Refill Request Social History Tobacco Use Types [...] 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
--- OUTSIDE RECORDS SUMMARY | 2024-11-14 08:18 | XMS_ITS | Encounter Summary ---
Author Organization [facility] Address [address] [place] [address] Care Team Providers Care Resident Care Manager Rn Name Role Phone Osiris Sanchez MD Primary Care Provider [phone] Jose Mcguire MD Primary Care Provider Gela Vandana Tovar MD Primary Care Provider [phone] Norman Arita MD Primary Care Provider [phone] Encounter Details Date Type Department Care Team (Late st Contact Info) Description 10/14/2008 Orders Only [facility] Internal Medicine [address] [place] [address] Osiris Sanchez MD [address] [place] [address] Social History Tobacco Use Types Packs/Day Years [...] 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 Procedure Name Priority Date/Time Associated Diagnosis Comments URINALYSIS, DIP ONLY ( SITE STAT ONLY) STAT (All results called to provider) 10/14/2008 11:05 AM EDT UTI (Urinary Tract Infection) CULTURE, URINE Routine 10/14/2008 UTI (Urinary Tract Infection) documented in this encounter Results * Due to [facility] law, this organization might not be sharing negative HIV tests. * (ABNORMAL) URINALYSIS, DIP ONLY ( SITE STAT ONLY) (10/14/2008 11:05 AM EDT) COLOR (URINE) yellow [facility] (CLIA# [id number]) APPEARANCE (URINE) cloudy(A) [facility] (CLIA# [id number]) SPECIFIC GRAVITY 1.005 1.001 - 1.035 [facility] (CLIA# [id number]) PH (URINE) 7.0 5.0 - 8.0 [facility] (CLIA# [id number]) PROTEIN (URINE) neg - Neg - Neg [facility] (CLIA# [id number]) GLUCOSE (URINE) neg - Neg - Neg [facility] (CLIA# [id number]) Ketones (Urine) neg - Neg - Neg [facility] (CLIA# [id number]) BILIRUBIN (URINE) neg - Neg - Neg [facility] (CLIA# [id number]) BLOOD (URINE) trace(A) Neg - Neg [facility] (CLIA# [id number]) WBC (URINE) 1+(A) Neg - Neg [facility] (CLIA# [id number]) NITRITE (URINE) neg - Neg - Neg [facility] (CLIA# [id number]) Urine specimen (specimen) 10/14/2008 11:05 AM EDT Narrative [facility] (CLIA# [id number]) - 10/14/2008 11:05 AM EDT Micro and culture already ordered per provider. us Osiris Sanchez MD LAB SAME DAY RESULT Final Resul t [facility] (CLIA# [id number]) [address] [place] [address] * CULTURE, URINE (10/14/2008) URINE CULTURE CLEAN VOID SEE TEXT [facility] Comment: SOURCE: URINE MULTIPLE ORGANISMS, EACH <10,000 CFU/ML. MAY REPRESENT NORMAL DEBI CONTAMINATION FROM EXTERNAL GENITALIA. NO FURTHER TESTING. 10/14/2008 10/14/2008 4:2 9 PM EDT Osiris Sanchez MD LABORATORY Final Result Performing Organization Address City/[facility] Co de Phone Number [facility] [address] [place] [address] documented in this encounter Visit Diagnoses Diagnosis [...] documented as of this encounter Care Teams Resident Care Manager Rn Relationship Specialty Start Date End Date Osiris Sanchez MD [address] [place] [address] PCP - General 07/24/06 06/09/15 Jose Mcguire MD PCP - General Internal Medicine 06/10/15 05/19/19 Vandana Pierce MD PCP - General Family Medicine 05/20/19 08/03/20 Norman Arita MD [address] [place] [address] PCP - General Internal Medicine 08/04/20 03/04/22 documented as of this encounter
--- OUTSIDE RECORDS SUMMARY | 2024-11-14 08:18 | XMS_ITS | Encounter Summary ---
Author Organization [facility] Address [address] [place] [address] Care Team Providers Care Records Management Clerk Name Role Phone Osiris Sanchez MD Primary Care Provider Jose Mcguire MD Primary Care Provider Gela Vandana Tovar MD Primary Care Provider [phone] Normna Arita MD Primary Care Provider [phone] Encounter Details Date Type Department Care Team (Late st Contact Info) Description 08/23/2009 Orders Only May Internal Medicine [address] [place] [address] Osiris Sanchez MD [address] [place] [address] Social History Tobacco Use Types Packs/Day Years [...] 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 Will d/w patient at next appt.09/01 documented in this encounter Plan of Treatment Not on file documented as of this encounter Procedures * Due to [place] [employer] law, this organization might not be sharing [...] MD LABORATORY Final Result [facility] [address] [place] [address] * TSH (THYROTROPIN) (08/23/2009) TSH, THYROTROPIN 2.107 0.40 - 4.50 UIU/ML [facility] 08/23/2009 08/23/2009 1:1 2 PM EDT us Osiris Sanchez MD LABORATORY Final Result Performing Organization Address [facility] de Phone Number [facility] [address] [place] [address] * (ABNORMAL) LIPID PANEL + CARDIAC RISK [...] MD LABORATORY Final Result Performing Organization Address [facility] de Phone Number [facility] [address] [place] [address] * BASIC METABOLIC PANEL W/GLOMERULAR FILTRATION RATE (EGFR) (08/23/2009) Pathologist [facility] CALCIUM 9.3 8.6 - 10.2 MG/DL [facility] [...] MD LABORATORY Final Result Performing Organization Address [facility]/ZIP Co de Phone Number [facility] [address] [place] [address] * (ABNORMAL) CBC 5 PART DIFF (08/23/2009) [...] RESULT Final Resul t Performing Organization Address City/[facility] Co de Phone Number [facility] [address] [place] [address] documented in this encounter Visit Diagnoses Diagnosis Mood Disorder (F39) documented in this encounter Additional Health Concerns Infection Onset Date Last Indicated Resolved Time COVID-19 Rule-Out 01/13/2020 01/13/2020 01/13/2020 2:43 PM EST COVID-19 Rule-Out 02/22/2020 02/22/2020 02/22/2020 5:30 PM EST COVID-19 Confirmed 02/22/2020 02/22/2020 1 8:12 PM EDT COVID-19 Confirmed 03/09/2021 03/09/2021 2 8:12 PM EDT documented as of this encounter Care Teams Records Management Clerk Relationship Specialty Start Date End Date Osiris Sanchez MD [address] [place] [address] PCP - General 07/24/06 06/09/15 Jose Mcguire MD PCP - General Internal Medicine 06/10/15 05/19/19 Vandana Pierce MD PCP - General Family Medicine 05/20/19 08/03/20 Norman Arita MD [address] [place] [address] PCP - General Internal Medicine 08/04/20 03/04/22 documented as of this encounter
--- OUTSIDE RECORDS SUMMARY | 2024-11-14 08:18 | XMS_ITS | Encounter Summary ---
Author Organization [facility] Address [address] [place] [address] Care Team Providers Care Shingler Name Role Phone Osiris Sanchez MD Primary Care Provider [phone] Jose Mcguire MD Primary Care Provider Gela Vandana Tovar MD Primary Care Provider [phone] Norman Arita MD Primary Care Provider [phone] Reason for Visit * Reason Onset Date Comments Refill Request 12/23/2013 Encounter Details Date Type Department Care Team (Late st Contact Info) Description 12/23/2013 Refill July Internal Medicine [address] [place] [phone] Osiris Sanchez MD [address] [place] [address] Refill Request Social History Tobacco Use Types [...] 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
--- OUTSIDE RECORDS SUMMARY | 2024-11-14 08:18 | XMS_ITS | Encounter Summary ---
Author Organization [facility] Address [address] [place] [address] Care Team Providers Care Joint Sealer Name Role Phone Osiris Sanchez MD Primary Care Provider [phone] Jose Mcguire MD Primary Care Provider Gela Vandana Tovar MD Primary Care Provider [phone] Norman Arita MD Primary Care Provider [phone] Encounter Details Date Type Department Care Team (Late st Contact Info) Description 10/14/2008 Orders Only May Internal Medicine [address] [place] [address] Osiris Sanchez MD [address] [place] [address] Social History Tobacco Use Types Packs/Day Years [...] 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 documented in this encounter Plan of Treatment Not on file documented as of this encounter Procedures * Due to [place] [employer] law, this organization might not be sharing negative HIV tests. Procedure Name Priority Date/Time Associated Diagnosis Comments URINALYSIS,MICROSCOPI C ONLY Routine 10/14/2008 UTI (Urinary Tract Infection) documented in this encounter Results * Due to [place] [employer] law, this organization might not be sharing [...] RESULT Final Resul t Performing Organization Address City/State/[facility] Co de Phone Number [facility] [address] [place] [address] documented in this encounter Visit Diagnoses Diagnosis [...] documented as of this encounter Care Teams Joint Sealer Relationship Specialty Start Date End Date Osiris Sanchez MD [address] [place] [address] PCP - General 07/24/06 06/09/15 Jose Mcguire MD PCP - General Internal Medicine 06/10/15 05/19/19 Vandana Pierce MD PCP - General Family Medicine 05/20/19 08/03/20 Norman Arita MD [address] [place] [address] PCP - General Internal Medicine 08/04/20 03/04/22 documented as of this encounter
--- OUTSIDE RECORDS SUMMARY | 2024-11-14 08:18 | XMS_ITS | Encounter Summary ---
Author Organization [facility] Address [address] [place] [address] Care Team Providers Care Instructional Systems Specialist Name Role Phone Osiris Sanchez MD Primary Care Provider [phone] Jose Mcguire MD Primary Care Provider Gela Vandana Tovar MD Primary Care Provider [phone] Norman Arita MD Primary Care Provider [phone] Encounter Details Date Type Department Care Team (Late st Contact Info) Description 05/24/2009 Orders Only May Internal Medicine [address] [place] [address] Osiris Sanchez MD [address] [place] [address] Social History Tobacco Use Types Packs/Day Years [...] 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 Procedure Name Priority Date/Time Associated Diagnosis Comments TSH, THYROTROPIN Routine 05/24/2009 Palpitations T4, FREE THYROXINE Routine 05/24/2009 Palpitations documented in this encounter Results * Due to [place] [employer] law, this organization might not be sharing negative HIV tests. * TSH (THYROTROPIN) (05/24/2009) TSH, THYROTROPIN 2.604 0.40 - 4.50 UIU/ML [facility] 05/24/2009 05/24/2009 2:3 1 PM EDT Osiris Sanchez MD LABORATORY Final Result Performing Organization Address [facility] Co de Phone Number [facility] [address] [place] [address] * (ABNORMAL) T4, FREE THYROXINE (05/24/2009) FT4 0.78(L) 0.8 - 1.8 NG/DL [facility] 05/24/2009 05/24/2009 2:3 1 PM EDT Osiris Sanchez MD LABORATORY Final Result Performing Organization Address [facility]/ZIP Co de Phone Number [facility] [address] [place] [address] documented in this encounter Visit Diagnoses Diagnosis Palpitations documented in this encounter Additional Health Concerns Infection Onset Date Last Indicated Resolved Time COVID-19 Rule-Out 01/13/2020 01/13/2020 01/13/2020 2:43 PM EST COVID-19 Rule-Out 02/22/2020 02/22/2020 02/22/2020 5:30 PM EST COVID-19 Confirmed 02/22/2020 02/22/2020 1 8:12 PM EDT COVID-19 Confirmed 03/09/2021 03/09/2021 2 8:12 PM EDT documented as of this encounter Care Teams Instructional Systems Specialist Relationship Specialty Start Date End Date Osiris Sanchez MD [address] [place] [address] PCP - General 07/24/06 06/09/15 Jose Mcguire MD PCP - General Internal Medicine 06/10/15 05/19/19 Vandana Pierce MD PCP - General Family Medicine 05/20/19 08/03/20 Norman Arita MD [address] [place] [address] PCP - General Internal Medicine 08/04/20 03/04/22 documented as of this encounter
--- OUTSIDE RECORDS SUMMARY | 2024-11-14 08:18 | XMS_ITS | Clinical Summary ---
Author Organization [facility] Address [address] [place] [address] Care Team Providers Care Network Announcer Name Role Phone Unavailable Primary Care Provider [...] for histological confirmation. She is moving to [facility] at the end of the month. 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 Procedures * Due to [place] [employer] law, this organization might not be sharing [...] to Health Maintenance Results * Due to [place] [employer] law, this organization might not be sharing negative HIV tests. * HEPATITIS PANEL, ACUTE W/REFLEX (12/01/2021 11:27 AM EDT) Hepatitis A virus Ab.IgM NON-REACT JESSICA NON-REACT JESSICA [facility] Comment: For additional information, please refer to http://Modbook.FOLUP/faq/CDK618 (This link is being provided for informational/ [...] a test for HCV RNA (test code 61625) is suggested. For additional information please refer to http://Modbook.FOLUP/faq/DAN25i5 (This link is being provided for informational/ educational purposes only.) 12/01/2021 11:2 7 AM EDT 12/01/2021 7:04 PM EDT Narrative Resulting Agency Comment [id number] us Norman Arita MD LABORATORY Final Result [facility] [address] [place] [address] * (ABNORMAL) LIPID PANEL WITH REFLEX TO [...] LDL-C. Junior BASILIO et al. RASHI. 2013;310(19): 1232-2649 (http://education.LibreDigital/faq/CPM606) CHOL/HDL Ratio 3.0 <5.0 (calc) [facility] Cholesterol Non-HDL 87 <130 mg/dL (calc) [facility] Comment: For patients with diabetes plus 1 major ASCVD risk factor, treating to a non-HDL-C goal of <100 mg/dL (LDL-C of <70 mg/dL) is considered a therapeutic option. 2021 7:18 AM EDT 06/25/2021 1:31 AM EDT Narrative Resulting Agency Comment [id number] us Norman Arita MD LABORATORY Final Result [facility] [address] [place] [address] * ESOPHAGOGASTRODUODENOSCOPY, FLEXIBLE, TRANSORAL; WITH BIOPSY, SINGLE [...] No acute pulmonary disease. us Toshia Avina CHILD WELFARE SPECIALIST IMG XRAY NO CONTRAST ORDERA BLES Final [...] SITES AXIAL SKEL (10/09/2008 3:26 PM EDT) [facility] RADIOLOGY REPORT DUAL ENERGY X-RAY ABSORPTIOMETRY (DXA) SCAN DXA MODEL: [employer] QDR 4500 in fast scan mode RISK [...] WITH HUMAN PAPILLOMAVIRUS (HPV) DNA, HIGH (11/12/2006) [facility] THINPREP PAP TEST WITH HPV SEE TEXT(A) [facility]IL[facility] (CLIA# [id number]) Comment: THINPREP PAP TEST WITH HPV SOURCES: [...] CONFERENCE, FORUM ON SPECIMEN ADEQUACY, QUOTED IN [email or web address]). COMMENTS: HPV PERFORMED AT [facility], [address] [place] [address], THEODORE ALFARO M.D., DIRECTOR RESULT DATE: 11/16/2006 TECHNOLOGIST: WB GYNECOLOGICAL CYTOLOGY IS A SCREENING PROCEDURE SUBJECT TO BOTH FALSE NEGATIVE AND FALSE POSITIVE RESULTS. IT IS MOST RELIABLE WHEN A SATISFACTORY SAMPLE IS OBTAINED ON A REGULAR REPETITIVE BASIS. RESULTS MUST BE INTERPRETED IN THE CONTEXT OF HISTORIC AND CURRENT CLINICAL INFORMATION. 11/12/2006 11/13/2006 1:5 3 PM EDT Narrative [facility] (CLIA# [id number]) - 11/19/2006 1:18 PM EDT Report Comments: HPV PERFORMED AT [facility], [address] [place] [address], THEODORE ALFARO M.D., DIRECTOR us Osiris Sanchez MD PATHOLOGY-INTERFACED Final Resu lt AL [facility] (CLIA# [id number]) [address] [place] [address] from Last 3 Months or Most Recently Relevant to Health Maintenance Insurance [employer] [place] [phone]
--- OUTSIDE RECORDS SUMMARY | 2024-11-14 08:18 | XMS_ITS | Encounter Summary ---
Author Organization [facility] Address [address] [place] [address] Care Team Providers Care Crusher Supervisor Name Role Phone Osiris Sanchez MD Primary Care Provider [phone] Jose Mcguire MD Primary Care Provider Gela Vandana Tovar MD Primary Care Provider [phone] Norman Arita MD Primary Care Provider [phone] Encounter Details Date Type Department Care Team (Late st Contact Info) Description 09/30/2009 Orders Only May Internal Medicine [address] [place] [address] Osiris Sanchez MD [address] [place] [address] Social History Tobacco Use Types Packs/Day Years [...] 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 Will d/w patient at next appt. 10/06 documented in this encounter Plan of Treatment Not on file documented as of this encounter Procedures * Due to [place] [employer] law, this organization might not be sharing negative HIV tests. Procedure Name Priority Date/Time Associated Diagnosis Comments LIPID PANEL + CARDIAC RISK WITH REFLEX TO LDL DIRECT Routine 09/30/2009 Hyperlipidemia TSH, THYROTROPIN Routine 09/30/2009 Depression T4, FREE THYROXINE Routine 09/30/2009 Depression documented in this encounter Results * Due to [place] [employer] law, this organization might not be sharing [...] Co de Phone Number [facility] [address] [place] [address] * T4, FREE THYROXINE (09/30/2009) FT4 1.02 0.8 - 1.8 NG/DL [facility] 09/30/2009 09/30/2009 12: 54 PM EDT Osiris Sanchez MD LABORATORY Final Result Performing Organization Address City/[facility]/ZIP Co de Phone Number [facility] [address] [place] [address] * TSH (THYROTROPIN) (09/30/2009) TSH, THYROTROPIN 2.180 0.40 - 4.50 UIU/ML [facility] 09/30/2009 09/30/2009 12: 54 PM EDT Osiris Sanchez MD LABORATORY Final Result Performing Organization Address City/[facility] Co de Phone Number [facility] [address] [place] [address] documented in this encounter Visit Diagnoses Diagnosis [...] documented as of this encounter Care Teams Crusher Supervisor Relationship Specialty Start Date End Date Osiris Sanchez MD [address] [place] [address] PCP - General 07/24/06 06/09/15 Jose Mcguire MD PCP - General Internal Medicine 06/10/15 05/19/19 Vandana Pierce MD PCP - General Family Medicine 05/20/19 08/03/20 Norman Arita MD [address] [place] [address] PCP - General Internal Medicine 08/04/20 03/04/22 documented as of this encounter
--- OUTSIDE RECORDS SUMMARY | 2024-11-14 08:18 | XMS_ITS | Encounter Summary ---
Author Organization [facility] Address [address] [place] [address] Care Team Providers Care Aix Architect Name Role Phone Osiris Sanchez MD Primary Care Provider [phone] Jose Mcguire MD Primary Care Provider Gela Vandana Tovar MD Primary Care Provider [phone] Norman Arita MD Primary Care Provider [phone] Encounter Details Date Type Department Care Team (Late st Contact Info) Description 04/29/2009 Orders Only May Internal Medicine [address] [place] [address] Osiris Sanchez MD [address] [place] [address] Social History Tobacco Use Types Packs/Day Years [...] 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 Procedure Name Priority Date/Time Associated Diagnosis Comments BASIC METABOLIC PANEL W/GLOMERULAR FILTRATION RATE (EGFR) Routine 04/29/2009 Pre-operative examination Palpitations Salpingo-oophoritis CBC W/O DIFFERENTIAL Routine 04/29/2009 Pre-operative examination Palpitations Salpingo-oophoritis documented in this encounter Results * Due to [place] [employer] law, this organization might not be sharing [...] MD LABORATORY Final Result [facility] [address] [place] [address] * CBC W/O DIFFERENTIAL (04/29/2009) WHITE BLOOD [...] RESULT Final Resul t Performing Organization Address City/State/[facility] Co de Phone Number [facility] [address] [place] [address] documented in this encounter Visit Diagnoses Diagnosis [...] documented as of this encounter Care Teams Aix Architect Relationship Specialty Start Date End Date Osiris Sanchez MD [address] [place] [address] PCP - General 07/24/06 06/09/15 Jose Mcguire MD PCP - General Internal Medicine 06/10/15 05/19/19 Vandana Pierce MD PCP - General Family Medicine 05/20/19 08/03/20 Norman Arita MD [address] [place] [address] PCP - General Internal Medicine 08/04/20 03/04/22 documented as of this encounter
--- OUTSIDE RECORDS SUMMARY | 2024-11-14 08:18 | XMS_ITS | Encounter Summary ---
Author Organization [facility] Address [address] [place] [address] Care Team Providers Care Circulation Crew Leader Name Role Phone Osiris Sanchez MD Primary Care Provider [phone] Jose Mcguire MD Primary Care Provider Gela Vandana Tovar MD Primary Care Provider [phone] Norman Arita MD Primary Care Provider [phone] Encounter Details Date Type Department Care Team (Late st Contact Info) Description 11/12/2008 Orders Only [facility] [address] [place] [phone] Afshin Martínez MD Social History Tobacco Use [...] 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 [...] this encounter Procedures * Due to [place] [employer] law, this organization might not be sharing [...] MD LABORATORY Final Result [facility] [address] [place] [address] * (ABNORMAL) URINALYSIS,C&S IF INDICATED (11/12/2008) COLOR [...] MD LABORATORY Final Result Performing Organization Address City/State/[facility] Co de Phone Number [facility] [address] [place] [address] documented in this encounter Visit Diagnoses Diagnosis [...] documented as of this encounter Care Teams Circulation Crew Leader Relationship Specialty Start Date End Date Osiris Sanchez MD [address] [place] [address] PCP - General 07/24/06 06/09/15 Jose Mcguire MD PCP - General Internal Medicine 06/10/15 05/19/19 Vandana Pierce MD PCP - General Family Medicine 05/20/19 08/03/20 Norman Arita MD [address] [place] [address] PCP - General Internal Medicine 08/04/20 03/04/22 documented as of this encounter
--- OUTSIDE RECORDS SUMMARY | 2024-11-14 08:18 | XMS_ITS | Encounter Summary ---
Author Organization [facility] Address [address] [place] [address] Care Team Providers Care Plater Supervisor Name Role Phone Osiris Sanchez MD Primary Care Provider [phone] Jose Mcguire MD Primary Care Provider Gela Vandana Tovar MD Primary Care Provider [phone] Norman Arita MD Primary Care Provider [phone] Encounter Details Date Type Department Care Team (Late st Contact Info) Description 02/17/2009 Orders Only May Internal Medicine [address] [place] [address] Osiris Sanchez MD [address] [place] [address] Social History Tobacco Use Types Packs/Day Years [...] 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 * (ABNORMAL) T4, FREE THYROXINE (08/23/2009) FT4 0.78(L) 0.8 - 1.8 NG/DL [facility] 08/23/2009 08/23/2009 1:1 2 PM EDT us Osiris Sanchez MD LABORATORY Final Result Performing Organization Address [facility] Co de Phone Number [facility] [address] [place] [address] * TSH (THYROTROPIN) (08/23/2009) TSH, THYROTROPIN 2.107 0.40 - 4.50 UIU/ML [facility] 08/23/2009 08/23/2009 1:1 2 PM EDT us Osiris Sanchez MD LABORATORY Final Result Performing Organization Address [facility] Co de Phone Number [facility] [address] [place] [address] * (ABNORMAL) LIPID PANEL + CARDIAC RISK [...] Performing Organization Address City/[facility] Co de Phone Number [facility] [address] [place] [phone] * BASIC METABOLIC PANEL W/GLOMERULAR FILTRATION RATE (EGFR) (08/23/2009) Pathologist [facility] CALCIUM 9.3 8.6 - 10.2 MG/DL [facility] [...] 08/23/2009 08/23/2009 1:1 2 PM EDT Narrative [facility] - 08/24/2009 2:09 AM EDT Please [...] Co de Phone Number [facility] [address] [place] [address] * (ABNORMAL) CBC 5 PART DIFF (08/23/2009) [facility] WHITE BLOOD COUNT 4.4 3.8 - 10.8 [...] RESULT Final Resul t Performing Organization Address City/State/[facility] de Phone Number [facility] [address] [place] [address] documented in this encounter Visit Diagnoses Diagnosis [...] documented as of this encounter Care Teams Plater Supervisor Relationship Specialty Start Date End Date Osiris Sanchez MD [address] [place] [address] PCP - General 07/24/06 06/09/15 Jose Mcguire MD PCP - General Internal Medicine 06/10/15 05/19/19 Vandana Pierce MD PCP - General Family Medicine 05/20/19 08/03/20 Norman Arita MD [address] [place] [address] PCP - General Internal Medicine 08/04/20 03/04/22 documented as of this encounter
--- OUTSIDE RECORDS SUMMARY | 2024-11-14 08:18 | XMS_ITS | Encounter Summary ---
Author Organization [facility] Address [address] [place] [address] Care Team Providers Care Mixing Tumbler Operator Name Role Phone Osiris Sanchez MD Primary Care Provider [phone] Jose Mcguire MD Primary Care Provider Gela Vandana Tovar MD Primary Care Provider [phone] Norman Arita MD Primary Care Provider [phone] Encounter Details Date Type Department Care Team (Late st Contact Info) Description 12/28/2009 Orders Only May Internal Medicine [address] [place] [address] Osiris Sanchez MD [address] [place] [address] Social History Tobacco Use Types Packs/Day Years [...] 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 Will d/w patient at next appt.today documented in this encounter Plan of Treatment Not on file documented as of this encounter Procedures * Due to [place] [employer] law, this organization might not be sharing [...] in this encounter Results * Due to [place] state law, this organization might not be sharing negative HIV tests. * T4, FREE THYROXINE (12/28/2009) FT4 0.98 0.8 - 1.8 NG/DL [facility] 12/28/2009 12/28/2009 1:2 5 PM EDT Osiris Sanchez MD LABORATORY Final Result Performing Organization Address City/State/[facility] Co de Phone Number [facility] [address] [place] [address] * TSH (THYROTROPIN) (12/28/2009) TSH, THYROTROPIN 2.054 0.40 - 4.50 UIU/ML [facility] 12/28/2009 12/28/2009 1:2 5 PM EDT us Osiris Sanchez MD LABORATORY Final Result Performing Organization Address City/[facility]/ZIP Co de Phone Number [facility] [address] [place] [address] * (ABNORMAL) CBC 5 PART DIFF (12/28/2009) [...] RESULT Final Resul t Performing Organization Address City/[facility]/ZIP Co de Phone Number [facility] [address] [place] [address] * BASIC METABOLIC PANEL W/GLOMERULAR FILTRATION RATE [...] Final Result Performing Organization Address [facility] Co de Phone Number [facility] [address] [place] [address] * ALANINE AMINOTRANSFERASE (ALT), SERUM (12/28/2009) ALT (SGPT) 34 6 - 40 U/L [facility] 12/28/2009 12/28/2009 1:2 5 PM EDT us Osiris Sanchez MD LAB SAME DAY RESULT Final Resul t Performing Organization Address City/[facility]/ZIP Co de Phone Number [facility] [address] [place] [address] * ASPARTATE AMINOTRANSFERASE (AST), SERUM (12/28/2009) AST (SGOT) 25 10 - 30 U/L [facility] 12/28/2009 12/28/2009 1:2 5 PM EDT Osiris Sanchez MD LAB SAME DAY RESULT Final Resul t Performing Organization Address City/[facility]/ZIP Co de Phone Number [facility] [address] [place] [address] * (ABNORMAL) LIPID PANEL + CARDIAC RISK [...] Final Result Performing Organization Address [facility] Co de Phone Number [facility] [address] [place] [address] documented in this encounter Visit Diagnoses Diagnosis [...] documented as of this encounter Care Teams Mixing Tumbler Operator Relationship Specialty Start Date End Date Osiris Sanchez MD [address] [place] [address] PCP - General 07/24/06 06/09/15 Jose Mcguire MD PCP - General Internal Medicine 06/10/15 05/19/19 Vandana Pierce MD PCP - General Family Medicine 05/20/19 08/03/20 Norman Arita MD [address] [place] [address] PCP - General Internal Medicine 08/04/20 03/04/22 documented as of this encounter
--- OUTSIDE RECORDS SUMMARY | 2024-11-14 08:18 | XMS_ITS | Encounter Summary ---
Author Organization [facility] Address [address] [place] [address] Care Team Providers Care Instructional Technology Facilitator Name Role Phone Osiris Sanchez MD Primary Care Provider [phone] Jose Mcguire MD Primary Care Provider Gela Vandana Tovar MD Primary Care Provider [phone] Norman Arita MD Primary Care Provider [phone] Reason for Visit * Reason Onset Date Comments Refill Request 12/15/2013 Encounter Details Date Type Department Care Team (Late st Contact Info) Description 12/15/2013 Refill July Internal Medicine [address] [place] [phone] Osiris Sanchez MD [address] [place] [address] Refill Request Social History Tobacco Use Types [...] 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 female sent a [employer] message with request to renew medication(s). Any [...] as of this encounter Care Teams Instructional Technology Facilitator Relationship Specialty Start Date End Date Osiris Sanchez MD [address] [place] [address] PCP - General 07/24/06 06/09/15 Jose Mcguire MD PCP - General Internal Medicine 06/10/15 05/19/19 Vandana Pierce MD PCP - General Family Medicine 05/20/19 08/03/20 Norman Arita MD [address] [place] [address] PCP - General Internal Medicine 08/04/20 03/04/22 documented as of this encounter
--- OUTSIDE RECORDS SUMMARY | 2024-11-14 08:18 | XMS_ITS | Encounter Summary ---
Author Organization [facility] Address [address] [place] [address] Care Team Providers Care Customs Investigator Name Role Phone Osiris Sanchez MD Primary Care Provider [phone] Jose Mcguire MD Primary Care Provider Gela Vandana Tovar MD Primary Care Provider [phone] Norman Arita MD Primary Care Provider [phone] Encounter Details Date Type Department Care Team (Late st Contact Info) Description 03/18/2014 Orders Only May Internal Medicine [address] [place] [address] Osiris Sanchez MD [address] [place] [address] Social History Tobacco Use Types Packs/Day Years [...] 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 * THYROID CASCADING REFLEX (08/17/2014 8:21 AM EDT) TSH 2.13 mIU/L [facility] Comment: {TSH {[id number]) Reference Range > or = 20 Years 0.40-4.50 Ranges First trimester 0.26-2.66 Second trimester 0.55-2.73 Third trimester 0.43-2.91 INTERPRETATION SEE NOTE [facility] Comment: {INTERPRETATION {[id number]) TSH within normal range. Consistent with euthyroid patient. Interference from heterophilic antibodies (more common) or autoantibody (less common) should be considered when the TSH value does not fit the clinical picture. TSH with HAMA Treatment (test code 94732) or TSH Antibody (test code 02655) may help identify such interferences. 08/17/2014 8:21 AM EDT 08/17/2014 11:01 AM EDT Narrative Resulting Agency Comment [id number] us Osiris Sanchez MD LABORATORY Final Result Performing Organization Address City/State/[facility] Co de Phone Number [facility] [address] [place] [address] * (ABNORMAL) LIPID PANEL WITH REFLEX TO DIRECT LDL (08/17/2014 8:21 AM EDT) Cholesterol 236(H) 125 - 200 mg/dL [facility] Comment:{CHOLESTEROL, TOTAL {[id number]) HDL Cholesterol 35(L) > OR = 46 mg/dL [facility] Comment:{HDL CHOLESTEROL {[id number]) Triglyceride 349(H) <150 mg/dL [facility] Comment:{TRIGLYCERIDES {[id number]) LDL Cholesterol 131(H) <130 mg/dL (calc) [facility] Comment: {LDL-CHOLESTEROL {[id number]) Desirable range <100 mg/dL for patients with CHD or diabetes and <70 mg/dL for diabetic patients with known heart disease. CHOL/HDL Ratio 6.7(H) < OR = 5.0 (calc) [facility] Comment:{CHOL/HDLC RATIO {[id number]) Cholesterol Non-HDL 201(H) mg/dL (calc) [facility] Comment: {NON HDL CHOLESTEROL {[id number]) Target for non-HDL cholesterol is 30 mg/dL higher than LDL cholesterol target. 08/17/2014 8:21 AM EDT 08/17/2014 11:01 AM EDT Narrative Resulting Agency Comment [id number] Osiris Sanchez MD LABORATORY Final Result [facility] [address] [place] [address] documented in this encounter Visit [...] documented as of this encounter Care Teams Customs Investigator Relationship Specialty Start Date End Date Osiris Sanchez MD [address] [place] [address] PCP - General 07/24/06 06/09/15 Jose Mcguire MD PCP - General Internal Medicine 06/10/15 05/19/19 Vandana Pierce MD PCP - General Family Medicine 05/20/19 08/03/20 Norman Arita MD [address] [place] [address] PCP - General Internal Medicine 08/04/20 03/04/22 documented as of this encounter
--- OUTSIDE RECORDS SUMMARY | 2024-11-14 08:19 | XMS_ITS | Encounter Summary ---
Author Organization [facility] Address [address] [place] [address] Care Team Providers Care Hall Porter Name Role Phone Osiris Sanchez MD Primary Care Provider [phone] Jose Mcguire MD Primary Care Provider Gela Vandana Tovar MD Primary Care Provider [phone] Norman Arita MD Primary Care Provider Encounter Details Date Type Department Care Team (Late st Contact Info) Description 03/23/2010 Orders Only [facility] [address] [place] [address] Osiris Sanchez MD [address] [place] [address] Social History Tobacco Use Types Packs/Day Years [...] 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 Will d/w patient at next appt.04/01 documented in this encounter Plan of Treatment Not on file documented as of this encounter Procedures * Due to [place] [employer] law, this organization might not be sharing [...] Co de Phone Number [facility] [address] [place] [address] * (ABNORMAL) LIPID PANEL + CARDIAC RISK [...] MD LABORATORY Final Result [facility] [address] [place] [address] documented in this encounter Visit Diagnoses Diagnosis [...] documented as of this encounter Care Teams Hall Porter Relationship Specialty Start Date End Date Osiris Sanchez MD [address] [place] [address] PCP - General 07/24/06 06/09/15 Jose Mcguire MD PCP - General Internal Medicine 06/10/15 05/19/19 Vandana Pierce MD PCP - General Family Medicine 05/20/19 08/03/20 Norman Arita MD [address] [place] [address] PCP - General Internal Medicine 08/04/20 03/04/22 documented as of this encounter
--- OUTSIDE RECORDS SUMMARY | 2024-11-14 08:19 | XMS_ITS | Encounter Summary ---
Author Organization [facility] Address [address] [place] [address] Care Team Providers Care Cnc Lathe Machine Operator Name Role Phone Osiris Sanchez MD Primary Care Provider [phone] Jose Mcguire MD Primary Care Provider Gela Vandana Tovar MD Primary Care Provider [phone] Norman Arita MD Primary Care Provider [phone] Encounter Details Date Type Department Care Team ([facility] st Contact Info) Description 02/10/2015 Orders Only [facility] Pulmonary [address] 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 * (ABNORMAL) VITAMIN D, 25-HYDROXY, TOTAL, IMMUNOASSAY (02/10/2015 5:12 PM EST) Vitamin D, 25-OH, Total 14(L) 30 - 100 ng/mL [facility] Comment: {VITAMIN D,25-OH,TOTAL,IA {[id number]) Vitamin D Status 25-OH Vitamin D: Deficiency: <20 ng/mL Insufficiency: 20 - 29 ng/mL Optimal: > or = 30 ng/mL For 25-OH Vitamin D testing on patients on D2-supplementation and patients for whom quantitation of D2 and D3 fractions is required, the QuestAssureD(TM) 25-OH VIT D, (D2,D3), LC/MS/MS is recommended: order code 95058 (patients >2yrs). For more information on this test, go to: http://Livevol.[facility]/faq/FTL614 (This link is being provided for informational/educational purposes only.) 02/10/2015 5:12 PM EST 02/10/2015 6:26 PM EST Narrative Resulting Agency Comment [id number] Tommy Saldaña MD LABORATORY Final Result Performing Organization Address [facility] de Phone Number [employer] [address] [place] [address] * (ABNORMAL) D-DIMER, QUANTITATIVE (02/10/2015 5:12 PM EST) Fibrin D-dimer FEU (Platelet Poor Plasma) 0.88(H) <0.50 mcg/mL FEU [facility] Comment: {D-DIMER, QUANTITATIVE {[id number]) Verified by repeat analysis. The D-Dimer test [...] 11:295(2):199-207] For additional information, please refer to: http://Livevol.[facility]/faq/GEY637 (This link is being provided for informational/ educational purposes only) 02/10/2015 5:12 PM EST 02/10/2015 6:26 PM EST Narrative Resulting Agency Comment [id number] Tommy Saldaña MD LAB SAME DAY RESULT Final Res ult Performing Organization Address [facility] Co de Phone Number [employer] [address] [place] [address] * IRON PROFILE (IRON/TIBC), SERUM (02/10/2015 5:12 PM EST) Iron 76 40 - 190 mcg/dL [facility] Comment:{IRON, TOTAL {[id number]) Iron binding capacity 365 250 - 450 mcg/dL [facility] Comment:{IRON BINDING CAPACI TY {[id number]) Iron saturation 21 11 - 50 % (calc) [facility] Comment:{% SATURATION {[id number]) 02/10/2015 5:12 PM EST 02/10/2015 6:26 PM EST Narrative Resulting Agency Comment [id number] Tommy Saldaña MD LABORATORY Final Result [facility] [address] [place] [address] documented in this encounter Visit Diagnoses Diagnosis [...] documented as of this encounter Care Teams Cnc Lathe Machine Operator Relationship Specialty Start Date End Date Osiris Sanchez MD [address] [place] [address] PCP - General 07/24/06 06/09/15 Jose Mcguire MD PCP - General Internal Medicine 06/10/15 05/19/19 Vandana Pierce MD PCP - General Family Medicine 05/20/19 08/03/20 Norman Arita MD [address] [place] [address] PCP - General Internal Medicine 08/04/20 03/04/22 documented as of this encounter
--- OUTSIDE RECORDS SUMMARY | 2024-11-14 08:19 | XMS_ITS | Encounter Summary ---
Author Organization [facility] Address [address] [place] [address] Care Team Providers Care Automotive Tire Technician Name Role Phone Osiris Sanchez MD Primary Care Provider [phone] Jose Mcguire MD Primary Care Provider Gela Vandana Tovar MD Primary Care Provider Norman Arita MD Primary Care Provider [phone] Encounter Details Date Type Department Care Team (Late st Contact Info) Description 09/04/2011 Orders Only [facility] [address] [place] [id number] Maik Adams MD Social History Tobacco Use [...] 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 Procedure Name Priority Date/Time Associated Diagnosis Comments CULTURE, URINE, ROUTINE Routine 09/04/2011 6:52 PM EDT UTI (urinary tract infection), uncomplicated URINALYSIS, MICROSCOPIC STAT (All results called to provider) 09/04/2011 6:52 PM EDT UTI (urinary tract infection), uncomplicated documented in this encounter Results * Due to [place] K[employer] law, this organization might not be sharing negative HIV tests. * (ABNORMAL) CULTURE, URINE, ROUTINE (09/04/2011 6:52 PM EDT) Bacteria culture (Urine) SEE NOTE(A) [facility] Comment: {CULTURE, URINE, ROUTINE {[id number]) CULTURE, URINE, ROUTINE MICRO NUMBER: [id number] TEST STATUS: FINAL SPECIMEN SOURCE: URINE SPECIMEN [...] 6:57 PM EDT Narrative Resulting Agency Comment [id number] Maik Adams MD LABORATORY Final Resul t Performing Organization Address [facility] de Phone Number [facility] [address] [place] [address] * (ABNORMAL) URINALYSIS, MICROSCOPIC (09/04/2011 6:52 PM EDT) WBC (Urine) 40-60(A) < OR = 5 /HPF [facility] Comment:{WBC {[id number]) RBC (Urine Sed) 4-10(A) < OR = 3 /HPF [facility] Comment:{RBC {[id number]) Epithelial cells.squamous (Urine sed) 0-5 < OR = 5 /HPF [facility] Comment:{SQUAMOUS EPITHELIAL CELLS {[id number]) Bacteria (Urine) MODERATE( A) NONE SEEN /HPF [facility] Comment:{BACTERIA {[id number]) Service comment 01 SEE NOTE [facility] Comment: {NOTE {[id number]) This urine was analyzed for the presence of WBC, RBC, bacteria, casts, and other formed elements. Only those elements seen were reported. 09/04/2011 6:52 PM EDT 09/04/2011 6:57 PM EDT Narrative Resulting Agency Comment [id number] Maik Adams MD LAB SAME DAY RESULT Final R esult Performing Organization Address [facility] de Phone Number [facility] [address] [place] [address] documented in this encounter Visit Diagnoses Diagnosis [...] as of this encounter Care Teams Automotive Tire Technician Relationship Specialty Start Date End Date Osiris Sanchez MD [address] [place] [address] PCP - General 07/24/06 06/09/15 Jose Mcguire MD PCP - General Internal Medicine 06/10/15 05/19/19 Vandana Pierce MD PCP - General Family Medicine 05/20/19 08/03/20 Norman Arita MD [address] [place] [address] PCP - General Internal Medicine 08/04/20 03/04/22 documented as of this encounter
--- OUTSIDE RECORDS SUMMARY | 2024-11-14 08:19 | XMS_ITS | Encounter Summary ---
Author Organization [facility] Address [address] [place] [address] Care Team Providers Care Kick Press Setter Name Role Phone Vandana Pierce MD Primary Care Provider [phone] Norman Arita MD Primary Care Provider [phone] Reason for Visit * Reason Comments Appointment Encounter Details Date Type Department Care Team ([facility] st Contact Info) Description 04/13/2020 Telephone [facility] [address] [place] [phone] Vandana Pierce MD [address] [place] [address] Appointment Social History Tobacco Use Types Packs/Day [...] Job End Date financial counselor, 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
--- OUTSIDE RECORDS SUMMARY | 2024-11-14 08:19 | XMS_ITS | Encounter Summary ---
Author Organization [facility] Address [address] [place] [address] Care Team Providers Care Relief Pharmacist Name Role Phone Osiris Sanchez MD Primary Care Provider [phone] Jose Mcguire MD Primary Care Provider Gela Vandana Tovar MD Primary Care Provider [phone] Norman Arita MD Primary Care Provider [phone] Reason for Referral * CONSULT AND TREATMENT (Routine) - Incomplete Specialty Diagnoses / Procedures Referred By Adiel tijerina Referred To Contact Pulmonary Diagnoses SOB (shortness of breath) Procedures REQUEST FOR VENTILATION PERFUSION SCAN NON-FC Tommy Saldaña MD [address] [place] [address] Phone: tel: fax: Referral ID Status Reason Start Date Expiration Date Visits Requested Visits Authorized [id number] Incomplete Specialty Services Required 5 1 1 Encounter Details Date Type Department Care Team ([facility] st Contact Info) Description 02/11/2015 Orders Only [facility] Pulmonary [address] [place] [address] [address] [place] [address] Tommy Saldaña MD [address] [place] [id number] Social History Tobacco Use Types Packs/Day Years [...] 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
--- OUTSIDE RECORDS SUMMARY | 2024-11-14 08:19 | XMS_ITS | Encounter Summary ---
Author Organization [facility] Address [address] [place] [address] Care Team Providers Care Diagnostic Imaging Manager Name Role Phone Osiris Sanchez MD Primary Care Provider [phone] Jose Mcguire MD Primary Care Provider Gela Vandana Tovar MD Primary Care Provider [phone] Norman Arita MD Primary Care Provider [phone] Encounter Details Date Type Department Care Team (Late st Contact Info) Description 11/25/2010 Orders Only [facility] Internal [facility] [address] [place] [address] Juli Boothe, END USER SUPPORT SPECIALIST [address] [place] [address] Social History Tobacco Use Types Packs/Day Years [...] 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 See TM of 12-01-10 documented in this encounter Plan of Treatment Not on file documented as of this encounter Procedures * Due to [place] [employer] law, this organization might not be sharing [...] this encounter Results * Due to [place] [employer] law, this organization might not be sharing negative HIV tests. * CULTURE, GENITAL (11/25/2010 5:02 PM EDT) Bacteria culture (Genital) SEE NOTE [facility] Comment: {CULTURE, GENITAL {[id number]) CULTURE, GENITAL MICRO NUMBER: [id number] TEST STATUS: FINAL SPECIMEN SOURCE: NOT GIVEN SPECIMEN QUALITY: ADEQUATE RESULT: Heavy growth of Presumptive Gardnerella vaginalis COMMENT: Normal urogenital azar also present. 11/25/2010 5:02 PM EDT 11/25/2010 9:15 PM EDT Narrative Resulting Agency Comment [id number] Juli Boothe NP LABORATORY Final Result Performing Organization Address [facility]/ZIP Co de Phone Number [facility] [address] [place] [address] * (ABNORMAL) BV/VAGINITIS PANELDNA PROBE (11/25/2010 5:02 PM EDT) Pathologist [facility] Trichomonas vaginalis rRNA (Genital) NOT DETECTED NOT DETECTED [facility] Comment:{TRICHOMONAS: {[id number]) Gardnerella vaginalis rRNA (Genital) DETECTED(A) NOT DETECTED [facility] Comment: {GARDNERELLA: {[id number]) Increased levels of G. vaginalis may not be significant in the absence of signs and symptoms of bacterial vaginosis. Yecenia sp rRNA (Vag) NOT DETECTED NOT DETECTED [facility] Comment:{YECENIA: {[id number]) 11/25/2010 5:02 PM EDT 11/25/2010 9:15 PM EDT Narrative Resulting Agency Comment [id number] Juli Boothe END USER SUPPORT SPECIALIST LABORATORY Final Result Performing Organization Address [facility] Co de Phone Number [facility] [address] [place] [address] * (ABNORMAL) URINALYSIS, DIP ONLY ( SITE STAT ONLY) (11/25/2010 2:56 PM EDT) Pathologist [facility] COLOR (URINE) YELLOW [facility] (CLIA# [id number]) APPEARANCE (URINE) CLEAR [facility] (CLIA# [id number]) SPECIFIC GRAVITY 1.025 1.001 - 1.035 [facility] (CLIA# [id number]) PH (URINE) 6.5 5.0 - 8.0 [facility] (CLIA# [id number]) PROTEIN (URINE) TRACE Neg - Neg [facility] (CLIA# [id number]) GLUCOSE (URINE) NEGATIVE Neg - Neg [facility] (CLIA# [id number]) Ketones (Urine) NEGATIVE Neg - Neg [facility] (CLIA# [id number]) BILIRUBIN (URINE) NEGATIVE Neg - Neg [facility] (CLIA# [id number]) BLOOD (URINE) NEGATIVE Neg - Neg [facility] (CLIA# [id number]) WBC (URINE) NEGATIVE Neg - Neg [facility] (CLIA# [id number]) NITRITE (URINE) NEGATIVE Neg - Neg [facility] (CLIA# [id number]) Urine specimen obtained by clean catch procedure (specimen) 11/25/2010 2:56 PM EDT Narrative [facility] (CLIA# [id number]) - 11/25/2010 2:57 PM EDT Culture already ordered per provider. Micro added. Juli Boothe END USER SUPPORT SPECIALIST LAB SAME DAY RESULT Final Resul t Performing Organization Address City/[facility]/ZIP Co de Phone Number [facility] (CLIA# [id number]) [address] [place] [address] * CULTURE, URINE, ROUTINE (11/25/2010 2:55 PM EDT) Bacteria culture (Urine) SEE NOTE [facility] Comment: {CULTURE, URINE, ROUTINE {[id number]) CULTURE, URINE, ROUTINE MICRO NUMBER: [id number] TEST STATUS: FINAL SPECIMEN SOURCE: URINE SPECIMEN QUALITY: ADEQUATE RESULT: Multiple organisms present, each less than 10,000 CFU/mL. These organisms, commonly found on external and internal genitalia, are considered to be colonizers. No further testing performed. 11/25/2010 2:55 PM EDT 11/25/2010 9:13 PM EDT Narrative Resulting Agency Comment [id number] Juli Boothe END USER SUPPORT SPECIALIST LABORATORY Final Result [facility] [address] [place] [address] * (ABNORMAL) URINALYSIS, MICROSCOPIC (11/25/2010 2:55 PM EDT) WBC (Urine) NONE SEEN < OR = 5 /HPF [facility] Comment:{WBC {[id number]) RBC (Urine Sed) NONE SEEN < OR = 3 /HPF [facility] Comment:{RBC {[id number]) Epithelial cells.squamous (Urine sed) 0-5 < OR = 5 /HPF [facility] Comment:{SQUAMOUS EPITHELIAL CELLS {[id number]) Bacteria (Urine) FEW(A) NONE SEEN /HPF [facility] Comment:{BACTERIA {[id number]) Hyaline casts (Urine sed) NONE SEEN NONE SEEN /LPF [facility] Comment:{HYALINE CAST {[id number]) Service comment 01 SEE NOTE [facility] Comment: {NOTE {[id number]) This urine was analyzed for the presence of WBC, RBC, bacteria, casts, and other formed elements. Only those elements seen were reported. 11/25/2010 2:55 PM EDT 11/25/2010 9:13 PM EDT Narrative Resulting Agency Comment [id number] Juli Boothe END USER SUPPORT SPECIALIST LAB SAME DAY RESULT Final Resul t Performing Organization Address City/State/[facility] Co de Phone Number [facility] [address] [place] [address] documented in this encounter Visit Diagnoses Diagnosis [...] documented as of this encounter Care Teams Diagnostic Imaging Manager Relationship Specialty Start Date End Date Osiris Sanchez MD [address] [place] [address] PCP - General 07/24/06 06/09/15 Jose Mcguire MD PCP - General Internal Medicine 06/10/15 05/19/19 Vandana Pierce MD PCP - General Family Medicine 05/20/19 08/03/20 Norman Arita MD [address] [place] [address] PCP - General Internal Medicine 08/04/20 03/04/22 documented as of this encounter
--- OUTSIDE RECORDS SUMMARY | 2024-11-14 08:19 | XMS_ITS | Encounter Summary ---
Author Organization [facility] Address [address] [place] [address] Care Team Providers Care Ash Pit Worker Name Role Phone Osiris Sanchez MD Primary Care Provider [phone] Jose Mcguire MD Primary Care Provider Gela Vandana Tovar MD Primary Care Provider [phone] Norman Arita MD Primary Care Provider [phone] Encounter Details Date Type Department Care Team (Late st Contact Info) Description 09/18/2014 Orders Only [facility] Allergy [address] [facility] [address] [place] [address] Shalom Knutson MD [address] [place] [address] Social History Tobacco Use Types Packs/Day Years [...] 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
--- OUTSIDE RECORDS SUMMARY | 2024-11-14 08:19 | XMS_ITS | Encounter Summary ---
Author Organization [facility] Address [address] [place] [address] Care Team Providers Care Unmanned Aircraft Systems Roboticist Name Role Phone Osiris Sanchez MD Primary Care Provider [phone] Jose Mcguire MD Primary Care Provider Gela Vandana Tovar MD Primary Care Provider [phone] Norman Arita MD Primary Care Provider [phone] Encounter Details Date Type Department Care Team (Late st Contact Info) Description 08/25/2010 Orders Only [facility] [address] [place] [address] Osiris Sanchez MD [address] [place] [address] Social History Tobacco Use Types Packs/Day Years [...] 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 on file documented as of this encounter Progress Notes * Osiris Sanchez - 09/01/2010 12:59 PM EDTQuick Note: D/w pt today documented in this encounter Plan of Treatment Not on file documented as of this encounter Procedures * Due to [facility] law, this organization might not be [...] MD LABORATORY Final Result [facility] [address] [place] [address] * TSH (THYROTROPIN) (08/25/2010) TSH, THYROTROPIN 1.851 0.40 - 4.50 UIU/ML [facility] 08/25/2010 08/25/2010 12: 52 PM EDT Osiris Sanchez MD LABORATORY Final Result [facility] [address] [place] [address] * BASIC METABOLIC PANEL W/GLOMERULAR FILTRATION RATE (EGFR) (08/25/2010) Pathologist [facility] CALCIUM 8.9 8.6 - 10.2 MG/DL [facility] [...] 08/25/2010 08/25/2010 12: 52 PM EDT Narrative [facility] - 08/25/2010 5:19 PM EDT [...] Final Result Performing Organization Address [facility] Co de Phone Number [facility] [address] [place] [address] * (ABNORMAL) CBC 5 PART DIFF (08/25/2010) Pathologist [facility] WHITE BLOOD COUNT 4.4 3.8 - 10.8 [...] RESULT Final Resul t Performing Organization Address City/[facility] de Phone Number [facility] [address] [place] [address] * ASPARTATE AMINOTRANSFERASE (AST), SERUM (08/25/2010) AST (SGOT) 17 10 - 30 U/L [facility] 08/25/2010 08/25/2010 12: 52 PM EDT us Osiris Sanchez MD LAB SAME DAY RESULT Final Resul t Performing Organization Address [facility] Co de Phone Number [facility] [address] [place] [address] * (ABNORMAL) LIPID PANEL + CARDIAC RISK [...] MD LABORATORY Final Result [facility] [address] [place] [address] documented in this encounter Visit Diagnoses Diagnosis [...] documented as of this encounter Care Teams Unmanned Aircraft Systems Roboticist Relationship Specialty Start Date End Date Osiris Sanchez MD [address] [place] [address] PCP - General 07/24/06 06/09/15 Jose Mcguire MD PCP - General Internal Medicine 06/10/15 05/19/19 Vandana Pierce MD PCP - General Family Medicine 05/20/19 08/03/20 Norman Arita MD [address] [place] [address] PCP - General Internal Medicine 08/04/20 03/04/22 documented as of this encounter
--- OUTSIDE RECORDS SUMMARY | 2024-11-14 08:19 | XMS_ITS | Encounter Summary ---
Author Organization [facility] Address [address] [place] [address] Care Team Providers Care Riprap Placing Supervisor Name Role Phone Osiris Sanchez MD Primary Care Provider Jose Mcguire MD Primary Care Provider Gela Vandana Tovar MD Primary Care Provider [phone] Norman Arita MD Primary Care Provider Encounter Details Date Type Department Care Team (Late st Contact Info) Description 02/14/2010 Orders Only [facility] [address] [place] [address] Osiris Sanchez MD [address] [place] [address] Social History Tobacco Use Types Packs/Day Years [...] 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
--- OUTSIDE RECORDS SUMMARY | 2024-11-14 08:19 | XMS_ITS | Encounter Summary ---
Author Organization [facility] Address [address] [place] [address] Care Team Providers Care Photonics Engineer Name Role Phone Vandana Pierce MD Primary Care Provider [phone] Norman Arita MD Primary Care Provider [phone] Reason for Visit * Reason Onset Date Comments Refill Request 01/04/2020 Encounter Details Date Type Department Care Team (Late st Contact Info) Description 01/04/2020 Refill [facility] [address] [place] [phone] Brielle Brown NP Refill Request Social History [...] Date Job End Date financial counselor, 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
--- OUTSIDE RECORDS SUMMARY | 2024-11-14 08:19 | XMS_ITS | Encounter Summary ---
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 Procedure Name Priority Date/Time Associated Diagnosis Comments VENIPUNCTURE Routine 03/08/2020 7:32 AM EST Hypothyroidism documented in this encounter Results * Due to [place] Share[employer] law, this organization might not be sharing negative HIV tests. * THYROID STIMULATING HORMONE (TSH) WITH FREE T4 REFLEX, SERUM (03/08/2020 7:32 AM EST) TSH 1.24 mIU/L [facility] Comment: Reference Range > or = 20 Years 0.40-4.50 Ranges First trimester 0.26-2.66 Second trimester 0.55-2.73 Third trimester 0.43-2.91 03/08/2020 7:32 AM EST 03/08/2020 8:44 AM EST Narrative Resulting Agency Comment [id number] Vandana Pierce MD LABORATORY Final Result Performing Organization Address City/State/[facility] Co de Phone Number [facility] [address] [place] [address] documented in this encounter Visit Diagnoses Diagnosis Hypothyroidism Unspecified hypothyroidism documented in this encounter Additional Health Concerns Infection Onset Date Last Indicated Resolved Time COVID-19 Confirmed 02/22/2020 02/22/2020 1 8:12 PM EDT COVID-19 Confirmed 03/09/2021 03/09/2021 2 8:12 PM EDT documented as of this encounter Care Teams Pool Attendant Relationship Specialty Start Date End Date Vandana Pierce MD PCP - General Family Medicine 05/20/19 08/03/20 Norman Arita MD [address] [place] [id number] PCP - General Internal Medicine 08/04/20 03/04/22 documented as of this encounter
--- OUTSIDE RECORDS SUMMARY | 2024-11-14 08:19 | XMS_ITS | Encounter Summary ---
Author Organization [facility] Address [address] [place] [address] Care Team Providers Care Director Design Name Role Phone Vandana Pierce MD Primary Care Provider [phone] Norman Arita MD Primary Care Provider [phone] Encounter Details Date Type Department Care Team (Late st Contact Info) Description 11/25/2019 Orders Only [facility] [address] [place] [phone] Vandana Pierce MD [address] [place] [address] Social History Tobacco Use Types Packs/Day Years [...] Date Job End Date financial counselor, 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 No / Unsure 11/20/2019 10:29 PM EDT documented as of this encounter Progress Notes * Vandana Pierce MD - 11/25/2019 2:54 PM EDT See Shotfarmt message documented in this encounter Plan of Treatment Not on file documented as of this encounter Procedures * Due to [place] SureVisit law, this organization might not be sharing negative HIV tests. Procedure Name Priority Date/Time Associated Diagnosis Comments VENIPUNCTURE Routine 11/25/2019 2:54 PM EDT Hypothyroidism, unspecified type LIPID PANEL WITH REFLEX TO DIRECT LDL Routine 11/25/2019 2:54 PM EDT Mixed hyperlipidemia BASIC METABOLIC PANEL WITH (GFR) Routine 11/25/2019 2:54 PM EDT Essential hypertension documented in this encounter Results * Due to [place] SureVisit law, this organization might not be sharing [...] approximately 13% higher for people identified as -E[place]ian. EGFR 89 > OR = 60 mL/min/1 [...] needs for GFR calculation. Resulting Agency Comment [id number] Vandana Pierce MD LABORATORY Final Result [facility] [address] [place] [address] * (ABNORMAL) LIPID PANEL WITH REFLEX TO [...] LDL-C. Junior SS et al. RASHI. 2013;310(19): 8061-1231 (http://education.Piethis.com.Qualvu/faq/EJF914) CHOL/HDL Ratio 4.2 <5.0 (calc) [facility] Cholesterol Non-HDL 136(H) <130 mg/dL (calc) [facility] Comment: For patients with diabetes plus 1 major ASCVD risk factor, treating to a non-HDL-C goal of <100 mg/dL (LDL-C of <70 mg/dL) is considered a therapeutic option. 11/25/2019 2:54 PM EDT 11/25/2019 3:40 PM EDT Narrative Resulting Agency Comment [id number] Vandana Pierce MD LABORATORY Final Result [facility] [address] [place] [address] * THYROID STIMULATING HORMONE (TSH) WITH FREE T4 REFLEX, SERUM (11/25/2019 2:54 PM EDT) TSH 0.99 mIU/L [facility] Comment: Reference Range > or = 20 Years 0.40-4.50 Ranges First trimester 0.26-2.66 Second trimester 0.55-2.73 Third trimester 0.43-2.91 11/25/2019 2:54 PM EDT 11/25/2019 3:40 PM EDT Narrative Resulting Agency Comment [id number] Vandana Pierce MD LABORATORY Final Result Performing Organization Address [facility] Co de Phone Number [facility] [address] [place] [address] documented in this encounter Visit Diagnoses Diagnosis [...] as of this encounter Care Teams Director Design Relationship Specialty Start Date End Date Vandana Pierce MD PCP - General Family Medicine 05/20/19 08/03/20 Norman Arita MD [address] [place] [address] PCP - General Internal Medicine 08/04/20 03/04/22 documented as of this encounter
--- OUTSIDE RECORDS SUMMARY | 2024-11-14 08:19 | XMS_ITS | Encounter Summary ---
Author Organization [facility] Address [address] [place] [address] Care Team Providers Care Guest Service Team Leader Name Role Phone Jose Mcguire MD Primary Care Provider Vandana Vazquez MD Primary Care Provider [phone] Norman Arita MD Primary Care Provider [phone] Reason for Visit * Reason Comments Cough Encounter Details Date Type Department Care Team ([facility] Contact Info) Description 05/08/2016 Telephone [facility] [address] [place] [phone] Jose Mcguire MD Cough Social History Tobacco [...] of this encounter Results * Due to [place] [...] documented as of this encounter Care Teams Guest Service Team Leader Relationship Specialty Start Date End Date Jose Mcguire MD PCP - General Internal Medicine 06/10/15 05/19/19 Vandana Pierce MD PCP - General Family Medicine 05/20/19 08/03/20 Norman Arita MD [address] [place] [address] PCP - General Internal Medicine 08/04/20 03/04/22 documented as of this encounter
--- OUTSIDE RECORDS SUMMARY | 2024-11-14 08:19 | XMS_ITS | Encounter Summary ---
Author Organization [facility] Address [address] [place] [address] Care Team Providers Care Implementation Consultant Name Role Phone Vandana Pierce MD Primary Care Provider [phone] Norman Arita MD Primary Care Provider [phone] Reason for Visit * Reason Onset Date Comments Refill Request 09/24/2019 Encounter Details Date Type Department Care Team (Late st Contact Info) Description 09/24/[address] [phone] Vandana Pierce MD [address] [place] [address] Refill Request Social History Tobacco Use Types [...] Phone 11/25/19 1:45 PM Vandana Pierce MD [facility] [phone] 11/25/19 3:45 PM Orestes Cruz OD [facility] [phone] 04/20/20 7:00 AM [facility] EXAMINER MAMMOGRAPHY ROOM[address] [facility] [phone] Pertinent lab results: Lab Results Component Value [...] documented as of this encounter Care Teams Implementation Consultant Relationship Specialty Start Date End Date Vandana Pierce MD PCP - General Family Medicine 05/20/19 08/03/20 Norman Arita MD [address] [place] [address] PCP - General Internal Medicine 08/04/20 03/04/22 documented as of this encounter
--- OUTSIDE RECORDS SUMMARY | 2024-11-14 08:19 | XMS_ITS | Encounter Summary ---
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 Procedure Name Priority Date/Time Associated Diagnosis Comments TSH, 3RD GENERATION Routine 08/16/2015 8 :19 AM EDT Disorder of thyroid LIPID PANEL WITH REFLEX TO DIRECT LDL Routine 08/16/2015 8:19 AM EDT Lipids blood increased documented in this encounter Results * Due to [place] exsulin law, this organization might not be sharing negative HIV tests. * TSH, 3RD GENERATION (08/16/2015 8:19 AM EDT) TSH 1.25 mIU/L [facility] Comment: {TSH {[id number]) Reference Range > or = 20 Years 0.40-4.50 Ranges First trimester 0.26-2.66 Second trimester 0.55-2.73 Third trimester 0.43-2.91 08/16/2015 8:19 AM EDT 08/16/2015 12:52 PM EDT Narrative Resulting Agency Comment [id number] Osiris Sanchez MD LABORATORY Final Result Performing Organization Address City/State/[facility] Co de Phone Number [facility] [address] [place] [address] * (ABNORMAL) LIPID PANEL WITH REFLEX TO DIRECT LDL (08/16/2015 8:19 AM EDT) Cholesterol 227(H) 125 - 200 mg/dL [facility] Comment:{CHOLESTEROL, TOTAL {[id number]) HDL Cholesterol 32(L) > OR = 46 mg/dL [facility] Comment:{HDL CHOLESTEROL {[id number]) Triglyceride 402(H) <150 mg/dL [facility] Comment:{TRIGLYCERIDES {[id number]) LDL Cholesterol SEE NOTE <130 mg/dL (calc) [facility] Comment: {LDL-CHOLESTEROL {[id number]) LDL cholesterol not calculated. Triglyceride levels greater than 400 mg/dL invalidate calculated LDL results. Desirable range <100 mg/dL for patients with CHD or diabetes and <70 mg/dL for diabetic patients with known heart disease. CHOL/HDL Ratio 7.1(H) < OR = 5.0 (calc) [facility] Comment:{CHOL/HDLC RATIO {[id number]) Cholesterol Non-HDL 195(H) mg/dL (calc) [facility] Comment: {NON HDL CHOLESTEROL {[id number]) Target for non-HDL cholesterol is 30 mg/dL higher than LDL cholesterol target. LDL, Direct Measure 108 <130 mg/dL [facility] Comment: {DIRECT LDL {[id number]) Desirable range <100 mg/dL for patients with CHD or diabetes and <70 mg/dL for diabetic patients with known heart disease. 08/16/2015 8:19 AM EDT 08/16/2015 12:52 PM EDT Narrative Resulting Agency Comment [id number] Osiris Sanchez MD LABORATORY Final Result Performing Organization Address City/State/[facility] Co de Phone Number [facility] [address] [place] [address] documented in this encounter Visit Diagnoses Diagnosis [...] as of this encounter Care Teams Services Mgr Relationship Specialty Start Date End Date Jose Mcguire MD PCP - General Internal Medicine 06/10/15 05/19/19 Vandana Pierce MD PCP - General Family Medicine 05/20/19 08/03/20 Norman Arita MD [address] [place] [address] PCP - General Internal Medicine 08/04/20 03/04/22 documented as of this encounter
--- OUTSIDE RECORDS SUMMARY | 2024-11-14 08:19 | XMS_ITS | Encounter Summary ---
Author Organization [facility] Address [address] [place] [address] Care Team Providers Care School Bus Aide Name Role Phone Osiris Sanchez MD Primary Care Provider [phone] Jose Mcguire MD Primary Care Provider Gela Vandana Tovar MD Primary Care Provider [phone] Norman Arita MD Primary Care Provider [phone] Encounter Details Date Type Department Care Team ([facility] st Contact Info) Description 09/17/2014 Orders Only [facility] Allergy [address] [facility] [address] [place] [address] Ashok Méndez MD [address] [place] [address] Social History Tobacco Use Types Packs/Day Years [...] 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
--- OUTSIDE RECORDS SUMMARY | 2024-11-14 08:19 | XMS_ITS | Encounter Summary ---
Author Organization [facility] Address [address] [place] [address] Care Team Providers Care Electric Dolly Operator Name Role Phone Osiris Sanchez MD Primary Care Provider [phone] Jose Mcguire MD Primary Care Provider Gela Vandana Tovar MD Primary Care Provider [phone] Norman Arita MD Primary Care Provider [phone] Encounter Details Date Type Department Care Team (Late st Contact Info) Description 05/05/2010 Orders Only [facility] [address] [place] [address] Osiris Sanchez MD [address] [place] [address] Medications Social History Tobacco Use Types Packs/Day [...] 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 Procedure Name Priority Date/Time Associated Diagnosis Comments CULTURE, URINE Routine 05/05/2010 UTI (urinary tract infection) documented in this encounter Results * Due to [place] xaitment law, this organization might not be sharing negative HIV tests. * (ABNORMAL) CULTURE, URINE (05/05/2010) URINE CULTURE CLEAN VOID SEE TEXT(A) [facility] Comment: SOURCE: URINE (#1) >100,000 CFU/ML E [...] EST Osiris Sanchez MD LABORATORY Final Result [facility] [address] [place] [address] documented in this encounter Visit Diagnoses Diagnosis [...] as of this encounter Care Teams Electric Dolly Operator Relationship Specialty Start Date End Date Osiris Sanchez MD [address] [place] [address] PCP - General 07/24/06 06/09/15 Jose Mcguire MD PCP - General Internal Medicine 06/10/15 05/19/19 Vandana Pierce MD PCP - General Family Medicine 05/20/19 08/03/20 Norman Arita MD [address] [place] [address] PCP - General Internal Medicine 08/04/20 03/04/22 documented as of this encounter
--- OUTSIDE RECORDS SUMMARY | 2024-11-14 08:19 | XMS_ITS | Encounter Summary ---
Author Organization [facility] Address [address] [place] [address] Care Team Providers Care Navy Material Inspector Name Role Phone Vandana Pierce MD Primary Care Provider [phone] Norman Arita MD Primary Care Provider [phone] Reason for Visit * Reason Onset Date Comments Refill Request 10/19/2019 Encounter Details Date Type Department Care Team (Late st Contact Info) Description 10/19/2019 Refill [facility] [address] [place] [phone] Davis Damon MD [address] [place] [address] Refill Request Social History Tobacco Use Types [...] documented as of this encounter Care Teams Navy Material Inspector Relationship Specialty Start Date End Date Vandana Pierce MD PCP - General Family Medicine 05/20/19 08/03/20 Norman Arita MD [address] [place] [address] PCP - General Internal Medicine 08/04/20 03/04/22 documented as of this encounter
--- OUTSIDE RECORDS SUMMARY | 2024-11-14 08:19 | XMS_ITS | Encounter Summary ---
Author Organization [facility] Address [address] [place] [address] Care Team Providers Care Welding Machine Operator Resistance Name Role Phone Osiris Sanchez MD Primary Care Provider [phone] Jose Mcguire MD Primary Care Provider Gela Vandana Tovar MD Primary Care Provider [phone] Norman Arita MD Primary Care Provider [phone] Encounter Details Date Type Department Care Team (Late st Contact Info) Description 06/08/2015 Orders Only [facility] [address] [place] [address] Osiris Sanchez MD [address] [place] [address] Social History Tobacco Use Types Packs/Day Years [...] 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
--- OUTSIDE RECORDS SUMMARY | 2024-11-14 08:19 | XMS_ITS | Encounter Summary ---
Author Organization [facility] Address [address] [place] [address] Care Team Providers Care Deputy Head Name Role Phone Osiris Sanchez MD Primary Care Provider [phone] Jose Mcguire MD Primary Care Provider Gela Vandana Tovar MD Primary Care Provider [phone] Norman rAita MD Primary Care Provider [phone] Encounter Details Date Type Department Care Team (Late st Contact Info) Description 02/03/2011 Orders Only [place] Internal Medicine [address] [place] [address] Osiris Sanchez MD [address] [place] [address] Social History Tobacco Use Types Packs/Day Years [...] 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 documented in this encounter Plan of Treatment Not on file documented as of this encounter Procedures * Due to [place] [employer] law, this organization might not be sharing [...] encounter Results * Due to [place] [employer] law, this organization might not be sharing negative HIV tests. * THYROID STIMULATING HORMONE (TSH) WITH FREE T4 REFLEX, SERUM (02/03/2011 8:33 AM EST) TSH 1.18 mIU/L [facility] Comment: {TSH, 3RD GENERATION W/REFLEX TO FT4 {[id number]) Reference Range > or = 20 Years 0.40-4.50 Ranges First trimester 0.20-4.70 Second trimester 0.30-4.10 Third trimester 0.40-2.70 02/03/2011 8:33 AM EST 02/03/2011 4:34 PM EST Narrative Resulting Agency Comment [id number] Osiris Sanchez MD LABORATORY Final Result [facility] [address] [place] [address] * BASIC METABOLIC PANEL WITH (GFR) (02/03/2011 8:33 AM EST) Glucose 85 65 - 99 mg/dL [facility] Comment: {GLUCOSE {[id number]) Fasting reference interval Urea Nitrogen Blood (BUN) 10 7 - 25 mg/dL [facility] Comment:{UREA NITROGEN (BUN) {[id number]) Creatinine 0.67 0.59 - 1.07 mg/dL [facility] Comment:{CREATININE {[id number]) GFR 109 > OR = 60 mL/min/1. 73m2 [facility] Comment:{eGFR NON-AFR. AMERI CAN {[id number]) GFR () 127 > OR = 60 mL/min/1. 73m2 [facility] Comment:{eGFR AMERIC AN {[id number]) BUN/Creatinine Ratio NOT APPLICABLE (calc) [facility] Comment:{BUN/CREATININE RATI O {[id number]) Sodium 143 135 - 146 mmol/L [facility] Comment:{SODIUM {[id number]) Potassium 3.7 3.5 - 5.3 mmol/L [facility] Comment:{POTASSIUM {[id number]) Chloride 105 98 - 110 mmol/L [facility] Comment:{CHLORIDE {[id number]) Carbon dioxide 25 21 - 33 mmol/L [facility] Comment:{CARBON DIOXIDE {[id number]) Calcium 9.5 8.6 - 10.2 mg/dL [facility] Comment:{CALCIUM {[id number]) 02/03/2011 8:33 AM EST 02/03/2011 4:34 [...] needs for GFR calculation. Resulting Agency Comment [id number] us Osiris Sanchez MD LABORATORY Final Result [facility] [address] [place] [address] * CBC INCLUDES DIFFERENTIAL AND PLATELET COUNT (02/03/2011 8:33 AM EST) [facility] WBC 4.2 3.8 - 10.8 Thousand/u L [facility] Comment:{WHITE BLOOD CELL CO UNT {[id number]) RBC 4.49 3.80 - 5.10 Million/uL [facility] Comment:{RED BLOOD CELL COUN T {[id number]) Hemoglobin 13.0 11.7 - 15.5 g/dL [facility] Comment:{HEMOGLOBIN {[id number]) Hematocrit 38.5 35.0 - 45.0 % [facility] Comment:{HEMATOCRIT {[id number]) MCV 85.7 80.0 - 100.0 fL [facility] Comment:{MCV {[id number]) MCH 29.0 27.0 - 33.0 pg [facility] Comment:{MCH {[id number]) MCHC 33.8 32.0 - 36.0 g/dL [facility] Comment:{MCHC {[id number]) RDW 13.6 11.0 - 15.0 % [facility] Comment:{RDW {[id number]) PLT 140 140 - 400 Thousand/u L [facility] Comment:{PLATELET COUNT {[id number]) MPV 10.7 7.5 - 11.5 fL [facility] Comment:{MPV {[id number]) Neutrophils # 1911 1500 - 7800 cells/uL [facility] Comment:{ABSOLUTE NEUTROPHIL S {[id number]) Lymphocytes # 1827 850 - 3900 cells/uL [facility] Comment:{ABSOLUTE LYMPHOCYTE S {[id number]) Monocytes # 302 200 - 950 cells/uL [facility] Comment:{ABSOLUTE MONOCYTES {[id number]) Eosinophils # 147 15 - 500 cells/uL [facility] Comment:{ABSOLUTE EOSINOPHIL S {[id number]) Basophils # 13 0 - 200 cells/uL [facility] Comment:{ABSOLUTE BASOPHILS {[id number]) Neutrophils % 45.5 % [facility] Comment:{NEUTROPHILS {[id number]) Lymphocytes % 43.5 % [facility] Comment:{LYMPHOCYTES {[id number]) Monocytes % 7.2 % [facility] Comment:{MONOCYTES {[id number]) Eosinophils % 3.5 % [facility] Comment:{EOSINOPHILS {[id number]) Basophils % 0.3 % [facility] Comment:{BASOPHILS {[id number]) 02/03/2011 8:33 AM EST 02/03/2011 4:34 PM EST Narrative Resulting Agency Comment [id number] us Osiris Sanchez MD LAB SAME DAY RESULT Final Resul t [facility] [address] [place] [address] documented in this encounter Visit Diagnoses Diagnosis [...] documented as of this encounter Care Teams Deputy Head Relationship Specialty Start Date End Date Osiris Sanchez MD [address] [place] [address] PCP - General 07/24/06 06/09/15 Jose Mcguire MD PCP - General Internal Medicine 06/10/15 05/19/19 Vandana Pierce MD PCP - General Family Medicine 05/20/19 08/03/20 Norman Arita MD [address] [place] [address] PCP - General Internal Medicine 08/04/20 03/04/22 documented as of this encounter
--- OUTSIDE RECORDS SUMMARY | 2024-11-14 08:19 | XMS_ITS | Encounter Summary ---
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 * (ABNORMAL) URINALYSIS, DIP ONLY ( SITE STAT ONLY) (07/22/2015 2:12 PM EDT) COLOR (URINE) YELLOW [facility] (CLIA# [id number]) APPEARANCE (URINE) CLEAR [facility] (CLIA# [id number]) SPECIFIC GRAVITY 1.010 1.001 - 1.035 [facility] (CLIA# [id number]) PH (URINE) 6.0 5.0 - 8.0 [facility] (CLIA# [id number]) PROTEIN (URINE) NEG Neg [facility] (CLIA# [id number]) GLUCOSE (URINE) NEG Neg [facility] (CLIA# [id number]) Ketones (Urine) NEG Neg [facility] (CLIA# [id number]) BILIRUBIN (URINE) NEG Neg [facility] (CLIA# [id number]) BLOOD (URINE) NEG Neg [facility] (CLIA# [id number]) Leukocyte esterase (Urine) NEG [facility] (CLIA# [id number]) NITRITE (URINE) NEG Neg [facility] (CLIA# [id number]) Urine specimen (specimen) 07/22/2015 2:12 PM EDT Narrative [facility] (CLIA# [id number]) - 07/22/2015 2:12 PM EDT Culture already ordered per provider. David Parr MD LAB SAME DAY RESULT Final Re sult Performing Organization Address City/[facility]/ZIP Co de Phone Number [facility] (CLIA# [id number]) [address] [place] [address] * CULTURE, URINE, ROUTINE (07/22/2015 1:58 PM EDT) Bacteria culture (Urine) SEE NOTE [facility] Comment: {CULTURE, URINE, ROUTINE {[id number]) CULTURE, URINE, ROUTINE MICRO NUMBER: [id number] TEST STATUS: FINAL SPECIMEN SOURCE: URINE SPECIMEN QUALITY: ADEQUATE RESULT: No Growth 07/22/2015 1:58 PM EDT 07/22/2015 10:31 PM EDT Narrative Resulting Agency Comment [id number] David Parr MD LABORATORY Final Result Performing Organization Address [facility] Co de Phone Number [facility] [address] [place] [address] documented in this encounter Visit Diagnoses Diagnosis [...] documented as of this encounter Care Teams Varnish Blender Relationship Specialty Start Date End Date Jose Mcguire MD PCP - General Internal Medicine 06/10/15 05/19/19 Vandana Pierce MD PCP - General Family Medicine 05/20/19 08/03/20 Norman Arita MD [address] [place] [address] PCP - General Internal Medicine 08/04/20 03/04/22 documented as of this encounter
--- OUTSIDE RECORDS SUMMARY | 2024-11-14 08:20 | XMS_ITS | Encounter Summary ---
Author Organization [facility] Address [address] [place] [address] Care Team Providers Care Minute Clerk For Basic Traffic Name Role Phone Jose Mcguire MD Primary Care Provider Gela Vandana Tovar MD Primary Care Provider [phone] Norman Arita MD Primary Care Provider [phone] Encounter Details Date Type Department Care Team (Late st Contact Info) Description 05/21/2018 Orders Only [place] [place] [facility] [address] [place] [address] Jose Mcguire MD Social History Tobacco Use [...] 4:52 PM EDT Narrative Resulting Agency Comment [id number] Jose Mcguire MD LABORATORY Final Result [facility] [address] [place] [address] * (ABNORMAL) BASIC METABOLIC PANEL WITH (GFR) [...] needs for GFR calculation. Resulting Agency Comment [id number] Jose Mcguire MD LABORATORY Final Result Performing Organization Address City/[facility]/ZIP Co de Phone Number [facility] [address] [place] [address] * (ABNORMAL) LIPID PANEL WITH REFLEX TO [...] LDL-C. Junior BASILIO et al. RASHI. 2013;310(19): 9800-9877 (http://education.[employer]/faq/JCC044) CHOL/HDL Ratio 7.0(H) <5.0 (calc) [facility] [...] 4:52 PM EDT Narrative Resulting Agency Comment [id number] Jose Mcguire MD LABORATORY Final Result Performing Organization Address City/[facility]/ZIP Co de Phone Number [facility] [address] [place] [address] documented in this encounter Visit Diagnoses Diagnosis [...] documented as of this encounter Care Teams Minute Clerk For Basic Traffic Relationship Specialty Start Date End Date Jose Mcguire MD PCP - General Internal Medicine 06/10/15 05/19/19 Vandana Pierce MD PCP - General Family Medicine 05/20/19 08/03/20 Norman Arita MD [address] [place] [address] PCP - General Internal Medicine 08/04/20 03/04/22 documented as of this encounter
--- OUTSIDE RECORDS SUMMARY | 2024-11-14 08:20 | XMS_ITS | Encounter Summary ---
Author Organization [facility] Address [address] [place] [address] Care Team Providers Care Tender Coordinator Name Role Phone Jose Mcguire MD Primary Care Provider Vandana Vazquez MD Primary Care Provider [phone] Norman Arita MD Primary Care Provider [phone] Encounter Details Date Type Department Care Team (Late st Contact Info) Description 07/16/2018 Orders Only [facility] [address] [place] [phone] Jose Mcguire MD Social History Tobacco Use [...] 4:52 PM EDT Narrative Resulting Agency Comment [id number] Jose Mcguire MD LABORATORY Final Result Performing Organization Address City/State/[facility] Co de Phone Number [facility] [address] [place] [address] * (ABNORMAL) BASIC METABOLIC PANEL WITH (GFR) [...] needs for GFR calculation. Resulting Agency Comment [id number] Jose Mcguire MD LABORATORY Final Result [facility] [address] [place] [address] * (ABNORMAL) LIPID PANEL WITH REFLEX TO [...] LDL-C. Junior SS et al. RASHI. 2013;310(19): 0684-6395 (http://education.[employer]/faq/KHL033) CHOL/HDL Ratio 7.0(H) <5.0 (calc) [facility] [...] 4:52 PM EDT Narrative Resulting Agency Comment [id number] Jose Mcguire MD LABORATORY Final Result [facility] [address] [place] [address] documented in this encounter Visit Diagnoses Diagnosis [...] documented as of this encounter Care Teams Tender Coordinator Relationship Specialty Start Date End Date Jose Mcguire MD PCP - General Internal Medicine 06/10/15 05/19/19 Vandana Pierce MD PCP - General Family Medicine 05/20/19 08/03/20 Norman Arita MD [address] [place] [address] PCP - General Internal Medicine 08/04/20 03/04/22 documented as of this encounter
--- OUTSIDE RECORDS SUMMARY | 2024-11-14 08:20 | XMS_ITS | Encounter Summary ---
Author Organization [facility] Address [address] [place] [address] Care Team Providers Care Wire Harness Assembler Name Role Phone Jose Mcguire MD Primary Care Provider Vandana Vazquez MD Primary Care Provider [phone] Norman Arita MD Primary Care Provider [phone] Encounter Details Date Type Department Care Team (Late st Contact Info) Description 08/23/2018 Orders Only [facility] [address] [facility] [address] [place] [address] Dai Albrecht NP Social History Tobacco Use [...] documented as of this encounter Care Teams Wire Harness Assembler Relationship Specialty Start Date End Date Jose Mcguire MD PCP - General Internal Medicine 06/10/15 05/19/19 Vandana Pierce MD PCP - General Family Medicine 05/20/19 08/03/20 Norman Arita MD [address] [place] [address] PCP - General Internal Medicine 08/04/20 03/04/22 documented as of this encounter
--- OUTSIDE RECORDS SUMMARY | 2024-11-14 08:20 | XMS_ITS | Encounter Summary ---
Author Organization [facility] Address [address] [place] [address] Care Team Providers Care Senior Commercial Loan Officer Name Role Phone Osiris Sanchez MD Primary Care Provider [phone] Jose Mcguire MD Primary Care Provider Gela Vandana Tovar MD Primary Care Provider [phone] Norman Arita MD Primary Care Provider [phone] Encounter Details Date Type Department Care Team (Late st Contact Info) Description 03/07/2011 Orders Only [place] Internal Medicine [address] [place] [address] Osiris Sanchez MD [address] [place] [address] Social History Tobacco Use Types Packs/Day Years [...] 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 * (ABNORMAL) URINALYSIS, DIP ONLY ( SITE STAT ONLY) (03/07/2011 11:39 AM EST) COLOR (URINE) YELLOW [facility] (CLIA# [id number]) APPEARANCE (URINE) CLOUDY(A) [facility] (CLIA# [id number]) SPECIFIC GRAVITY 1.025 1.001 - 1.035 [facility] (CLIA# [id number]) PH (URINE) 6.5 5.0 - 8.0 [facility] (CLIA# [id number]) PROTEIN (URINE) TRACE(A) Neg [facility] (CLIA# [id number]) GLUCOSE (URINE) NEG Neg [facility] (CLIA# [id number]) Ketones (Urine) NEG Neg [facility] (CLIA# [id number]) BILIRUBIN (URINE) NEG Neg [facility] (CLIA# [id number]) BLOOD (URINE) 2+(A) Neg [facility] (CLIA# [id number]) WBC (URINE) 2+(A) Neg [facility] (CLIA# [id number]) NITRITE (URINE) NEG Neg [facility] (CLIA# [id number]) Urine specimen (specimen) 03/07/2011 11:39 AM EST Narrative [facility] (CLIA# [id number]) - 03/07/2011 11:41 AM EST Micro and culture already ordered per provider. us Osiris Sanchez MD LAB SAME DAY RESULT Final Resul t [facility] (CLIA# [id number]) [address] [place] [address] * (ABNORMAL) CULTURE, URINE, ROUTINE (03/07/2011 11:28 AM EST) Bacteria culture (Urine) SEE NOTE(A) [facility] Comment: {CULTURE, URINE, ROUTINE {[id number]) CULTURE, URINE, ROUTINE MICRO NUMBER: [id number] TEST STATUS: FINAL SPECIMEN SOURCE: URINE SPECIMEN [...] 9:40 PM EST Narrative Resulting Agency Comment [id number] us Osiris Sanchez MD LABORATORY Final Result Performing Organization Address [facility] de Phone Number [facility] [address] [place] [phone] * (ABNORMAL) URINALYSIS, MICROSCOPIC (03/07/2011 11:28 AM EST) WBC (Urine) > OR = 60(A) < OR = 5 /HPF [facility] Comment:{WBC {[id number]) RBC (Urine Sed) 10-20(A) < OR = 3 /HPF [facility] Comment:{RBC {[id number]) Epithelial cells.squamous (Urine sed) 0-5 < OR = 5 /HPF [facility] Comment:{SQUAMOUS EPITHELIAL CELLS {[id number]) Bacteria (Urine) MANY(A) NONE SEEN /HPF [facility] Comment:{BACTERIA {[id number]) Calcium oxalate crystals (Urine sed) FEW NONE OR FEW /HPF [facility] Comment:{CALCIUM OXALATE CRY STALS {[id number]) Hyaline casts (Urine sed) NONE SEEN NONE SEEN /LPF [facility] Comment:{HYALINE CAST {[id number]) Service comment 01 MODERATE MUCOUS THREADS [facility] Comment:{COMMENTS {[id number]) 03/07/2011 11:2 8 AM EST 03/07/2011 9:40 PM EST Narrative Resulting Agency Comment [id number] us Osiris Sanchez MD LAB SAME DAY RESULT Final Resul t Performing Organization Address [facility] Co de Phone Number [facility] [address] [place] [address] documented in this encounter Visit Diagnoses Diagnosis [...] as of this encounter Care Teams Senior Commercial Loan Officer Relationship Specialty Start Date End Date Osiris Sanchez MD [address] [place] [address] PCP - General 07/24/06 06/09/15 Jose Mcguire MD PCP - General Internal Medicine 06/10/15 05/19/19 Vandana Pierce MD PCP - General Family Medicine 05/20/19 08/03/20 Norman Arita MD [address] [place] [address] PCP - General Internal Medicine 08/04/20 03/04/22 documented as of this encounter
--- OUTSIDE RECORDS SUMMARY | 2024-11-14 08:20 | XMS_ITS | Encounter Summary ---
Author Organization [facility] Address [address] [place] [address] Care Team Providers Care Steam Box Operator Name Role Phone Jose Mcguire MD Primary Care Provider Vandana Vazquez MD Primary Care Provider [phone] Norman Arita MD Primary Care Provider [phone] Reason for Referral * CONSULT AND TREATMENT (Routine) - Authorized Specialty Diagnoses / Procedures Referred By Adiel tijerina Referred To Contact Ophthalmology Diagnoses Right retinal lattice degeneration Jose Mcguire MD McCabe, Frank, MD [facility] [address] [place] [address] Phone: tel: fax: Referral ID Status Reason Start Date Expiration Date Visits Requested Visits Authorized [id number] Authorized Specialty Services Required 09/13/2018 09/13/2019 1 2 Question Answer When do you want this visit to occur? WITHIN 1 MONTH Appointment with or AP? FIRST AVAILABLE Patient is being referred outside of [facility] for the following reason, however final determination for [id number] requests are made by the Referral Management [...] to refer to? Dr. Kehinde Sanderson ph: [phone] fx: [phone] NPI# [id number] Encounter Details Date Type Department Care Team (Late st Contact Info) Description 08/27/2018 Orders Only [facility] [address] [place] [address] Jose Mcguire MD Social History Tobacco Use [...] documented as of this encounter Care Teams Steam Box Operator Relationship Specialty Start Date End Date Jose Mcguire MD PCP - General Internal Medicine 06/10/15 05/19/19 Vandana Pierce MD PCP - General Family Medicine 05/20/19 08/03/20 Norman Arita MD [address] [place] [address] PCP - General Internal Medicine 08/04/20 03/04/22 documented as of this encounter
--- OUTSIDE RECORDS SUMMARY | 2024-11-14 08:20 | XMS_ITS | Encounter Summary ---
Author Organization [facility] Address [address] [place] [address] Care Team Providers Care Commercial Litigation Associate Name Role Phone Osiris Sanchez MD Primary Care Provider [phone] Jose Mcguire MD Primary Care Provider Gela Vandana Tovar MD Primary Care Provider [phone] Norman Arita MD Primary Care Provider [phone] Encounter Details Date Type Department Care Team (Late st Contact Info) Description 03/07/2011 Orders Only [facility] [address] [place] [address] Osiris Sanchez MD [address] [place] [address] Social History Tobacco Use Types Packs/Day Years [...] 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 * (ABNORMAL) URINALYSIS, DIP ONLY ( SITE STAT ONLY) (03/07/2011 11:39 AM EST) COLOR (URINE) YELLOW [facility] (CLIA# [id number]) APPEARANCE (URINE) CLOUDY(A) [facility] (CLIA# [id number]) SPECIFIC GRAVITY 1.025 1.001 - 1.035 [facility] (CLIA# [id number]) PH (URINE) 6.5 5.0 - 8.0 [facility] (CLIA# [id number]) PROTEIN (URINE) TRACE(A) Neg [facility] (CLIA# [id number]) GLUCOSE (URINE) NEG Neg [facility] (CLIA# [id number]) Ketones (Urine) NEG Neg [facility] (CLIA# [id number]) BILIRUBIN (URINE) NEG Neg [facility] (CLIA# [id number]) BLOOD (URINE) 2+(A) Neg [facility] (CLIA# [id number]) WBC (URINE) 2+(A) Neg [facility] (CLIA# [id number]) NITRITE (URINE) NEG Neg [facility] (CLIA# [id number]) Urine specimen (specimen) 03/07/2011 11:39 AM EST Narrative [facility] (CLIA# [id number]) - 03/07/2011 11:41 AM EST Micro and culture already ordered per provider. us Osiris Sanchez MD LAB SAME DAY RESULT Final Resul t [facility] (CLIA# [id number]) [address] [place] [address] * (ABNORMAL) CULTURE, URINE, ROUTINE (03/07/2011 11:28 AM EST) Bacteria culture (Urine) SEE NOTE(A) [facility] Comment: {CULTURE, URINE, ROUTINE {[id number]) CULTURE, URINE, ROUTINE MICRO NUMBER: [id number] TEST STATUS: FINAL SPECIMEN SOURCE: URINE SPECIMEN [...] 9:40 PM EST Narrative Resulting Agency Comment [id number] Osiris Sanchez MD LABORATORY Final Result Performing Organization Address City/State/[facility] Co de Phone Number [facility] [address] [place] [address] documented in this encounter Visit Diagnoses Diagnosis [...] as of this encounter Care Teams Commercial Litigation Associate Relationship Specialty Start Date End Date Osiris Sanchez MD [address] [place] [address] PCP - General 07/24/06 06/09/15 Jose Mcguire MD PCP - General Internal Medicine 06/10/15 05/19/19 Vandana Pierce MD PCP - General Family Medicine 05/20/19 08/03/20 Norman Arita MD [address] [place] [address] PCP - General Internal Medicine 08/04/20 03/04/22 documented as of this encounter
--- OUTSIDE RECORDS SUMMARY | 2024-11-14 08:20 | XMS_ITS | Encounter Summary ---
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 Procedure Name Priority Date/Time Associated Diagnosis Comments CULTURE, GENITAL Routine 04/13/2011 5:08 PM EST Itch documented in this encounter Results * Due to [place] [employer] law, this organization might not be sharing negative HIV tests. * CULTURE, GENITAL (04/13/2011 5:08 PM EST) Bacteria culture (Genital) SEE NOTE [facility] Comment: {CULTURE, GENITAL {[id number]) CULTURE, GENITAL MICRO NUMBER: [id number] TEST STATUS: FINAL SPECIMEN SOURCE: NOT GIVEN SPECIMEN QUALITY: ADEQUATE RESULT: Heavy growth of Yeast isolated. Please contact the laboratory within 3 days if further identification is desired. COMMENT: Normal urogenital azar also present. 04/13/2011 5:08 PM EST 04/13/2011 10:42 PM EST Narrative Resulting Agency Comment [id number] Yoli Anderson MD LABORATORY Final Resul t Performing Organization Address City/State/[facility] Co de Phone Number [facility] [address] [place] [address] documented in this encounter Visit Diagnoses Diagnosis [...] documented as of this encounter Care Teams Cna Hha Relationship Specialty Start Date End Date Osiris Sanchez MD [address] [place] [address] PCP - General 07/24/06 06/09/15 Jose Mcguire MD PCP - General Internal Medicine 06/10/15 05/19/19 Vandana Pierce MD PCP - General Family Medicine 05/20/19 08/03/20 Norman Arita MD [address] [place] [address] PCP - General Internal Medicine 08/04/20 03/04/22 documented as of this encounter
--- OUTSIDE RECORDS SUMMARY | 2024-11-14 08:20 | XMS_ITS | Encounter Summary ---
Author Organization [facility] Address [address] [place] [address] Care Team Providers Care Switch Coupler Name Role Phone Jose Mcguire MD Primary Care Provider Vandana Vazquez MD Primary Care Provider [phone] Norman Arita MD Primary Care Provider [phone] Encounter Details Date Type Department Care Team ([facility] st Contact Info) Description 07/19/2018 Orders Only [facility] Vascular Surgery [address] [facility] [address] [place] [address] Davis Damon MD [address] [place] [address] Medications Social History Tobacco Use Types Packs/Day [...] documented as of this encounter Care Teams Switch Coupler Relationship Specialty Start Date End Date Jose Mcguire MD PCP - General Internal Medicine 06/10/15 05/19/19 Vandana Pierce MD PCP - General Family Medicine 05/20/19 08/03/20 Norman Arita MD [address] [place] [address] PCP - General Internal Medicine 08/04/20 03/04/22 documented as of this encounter
--- OUTSIDE RECORDS SUMMARY | 2024-11-14 08:20 | XMS_ITS | Encounter Summary ---
Author Organization [facility] Address [address] [place] [address] Care Team Providers Care Horse Race Timer Name Role Phone Jose Mcguire MD Primary Care Provider Gela Vandana Tovar MD Primary Care Provider [phone] Norman Arita MD Primary Care Provider [phone] Encounter Details Date Type Department Care Team (Late Contact Info) Description 03/29/2016 Orders Only [facility] [address] [place] [address] Jose Mcguire MD Social History Tobacco Use [...] 5:50 PM EST Narrative Resulting Agency Comment [id number] Jose Mcguire MD LABORATORY Final Result [facility] [address] [place] [address] * THYROID CASCADING REFLEX (03/29/2016 11:48 AM [...] picture. TSH with HAMA Treatment (test code 61514) or TSH Antibody (test code 35804) may help identify such interferences. 03/29/2016 11:4 8 AM EST 03/29/2016 5:50 PM EST Narrative Resulting Agency Comment [id number] Jose Mcguire MD LABORATORY Final Result [facility] [address] [place] [address] * BASIC METABOLIC PANEL WITH (GFR) (03/29/2016 11:48 AM EST) Pathologist [facility] Glucose 99 65 - 99 mg/dL [facility] [...] needs for GFR calculation. Resulting Agency Comment [id number] Jose Mcguire MD LABORATORY Final Result Performing Organization Address [facility] Co de Phone Number [facility] [address] [place] [address] * CBC INCLUDES DIFFERENTIAL AND PLATELET COUNT [...] 5:50 PM EST Narrative Resulting Agency Comment [id number] Jose Mcguire MD LAB SAME DAY RESULT Final Resul t Performing Organization Address [facility] Co de Phone Number [facility] [address] [place] [address] documented in this encounter Visit Diagnoses Diagnosis [...] documented as of this encounter Care Teams Horse Race Timer Relationship Specialty Start Date End Date Jose Mcguire MD PCP - General Internal Medicine 06/10/15 05/19/19 Vandana Pierce MD PCP - General Family Medicine 05/20/19 08/03/20 Norman Arita MD [address] [place] [address] PCP - General Internal Medicine 08/04/20 03/04/22 documented as of this encounter
--- OUTSIDE RECORDS SUMMARY | 2024-11-14 08:20 | XMS_ITS | Encounter Summary ---
Author Organization [facility] Address [address] [place] [address] Care Team Providers Care Manager Energy Name Role Phone Osiris Sanchez MD Primary Care Provider [phone] Jose Mcguire MD Primary Care Provider Gela Vandana Tovar MD Primary Care Provider Norman Arita MD Primary Care Provider [phone] Encounter Details Date Type Department Care Team (Late st Contact Info) Description 03/07/2011 Orders Only [facility] [address] [place] [address] Osiris Sanchez MD [address] [place] [address] Social History Tobacco Use Types Packs/Day Years [...] 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
--- OUTSIDE RECORDS SUMMARY | 2024-11-14 08:20 | XMS_ITS | Encounter Summary ---
Author Organization [facility] Address [address] [place] [address] Care Team Providers Care President Finance Company Name Role Phone Osiris Sanchez MD Primary Care Provider [phone] Jose Mcguire MD Primary Care Provider Gela Vandana Tovar MD Primary Care Provider [phone] Norman Arita MD Primary Care Provider [phone] Reason for Visit * Reason Onset Date Comments Refill Request 08/11/2011 Encounter Details Date Type Department Care Team (Late st Contact Info) Description 08/11/2011 Refill [facility] [address] [place] [phone] Darryl Ariza MD Refill Request Social History [...] 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
--- OUTSIDE RECORDS SUMMARY | 2024-11-14 08:20 | XMS_ITS | Encounter Summary ---
Author Organization [facility] Address [address] [place] [address] Care Team Providers Care X Ray Equipment Servicer Name Role Phone Osiris Sanchez MD Primary Care Provider [phone] Jose Mcguire MD Primary Care Provider Gela Vandana Tovar MD Primary Care Provider [phone] Norman Arita MD Primary Care Provider [phone] Encounter Details Date Type Department Care Team (Late st Contact Info) Description 09/01/2014 Orders Only [facility] [address] [place] [address] Osiris Sanchez MD [address] [place] [address] Social History Tobacco Use Types Packs/Day Years [...] 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 Procedure Name Priority Date/Time Associated Diagnosis Comments EKG-TO BE READ & BILLED BY ADULT OR PEDIATRIC CARDIOLOGY Routine 09/01/2014 8:48 AM EDT Tachycardia documented in this encounter Results * Due to [place] [employer] law, this organization might not be sharing [...] documented as of this encounter Care Teams X Ray Equipment Servicer Relationship Specialty Start Date End Date Osiris Sanchez MD [address] [place] [address] PCP - General 07/24/06 06/09/15 Jose Mcguire MD PCP - General Internal Medicine 06/10/15 05/19/19 Vandana Pierce MD PCP - General Family Medicine 05/20/19 08/03/20 Norman Arita MD [address] [place] [address] PCP - General Internal Medicine 08/04/20 03/04/22 documented as of this encounter
--- OUTSIDE RECORDS SUMMARY | 2024-11-14 08:20 | XMS_ITS | Encounter Summary ---
Author Organization [facility] Address [address] [place] [address] Care Team Providers Care Glaze Sprayer Name Role Phone Osiris Sanchez MD Primary Care Provider [phone] Jose Mcguire MD Primary Care Provider Gela Vandana Tovar MD Primary Care Provider [phone] Norman Arita MD Primary Care Provider [phone] Encounter Details Date Type Department Care Team (Late st Contact Info) Description 03/07/2011 Orders Only [facility] [address] [place] [address] Osiris Sanchez MD [address] [place] [address] Social History Tobacco Use Types Packs/Day Years [...] 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
--- OUTSIDE RECORDS SUMMARY | 2024-11-14 08:20 | XMS_ITS | Encounter Summary ---
Author Organization [facility] Address [address] [place] [address] Care Team Providers Care Valet Parker Name Role Phone Jose Mcguire MD Primary Care Provider Vandana Vazquez MD Primary Care Provider [phone] Norman Arita MD Primary Care Provider [phone] Encounter Details Date Type Department Care Team (Late st Contact Info) Description 09/19/2018 Orders Only [facility] [address] [place] [id number] Elizabeth Kim NP [address] [place] [address] Social History Tobacco Use Types Packs/Day Years [...] encounter Procedures * Due to [place] [employer] law, this organization might not be sharing [...] encounter Results * Due to [place] [employer] law, this organization might not be sharing [...] diagnosis of diabetes in children. According to [place] Diabetes Association (ADA) guidelines, hemoglobin A1c <7.0% represents optimal control in non- diabetic patients. Different metrics may apply to specific patient populations. Standards of Medical Care in Diabetes(ADA). Estimated Average Glucose 122 mg/dL (calc) [facility] 09/19/2018 2:11 PM EDT 09/19/2018 10:31 PM EDT Narrative Resulting Agency Comment [id number] Elizabeth Kim NP LABORATORY Final Result [facility] [address] [place] [address] * CHLAMYDIA TRACHOMATIS/N. GONORRHOEAE (GC) RNA, TMA (APTIMA GENITAL SWAB) (09/19/2018 2:11 PM EDT) Chlamydia trachomatis rRNA NOT DETECTED NOT DETECTED [facility] Neisseria Gonorrhoeae rRNA NOT DETECTED NOT DETECTED [facility] COMMENT SEE NOTE [facility] Comment: This test was performed using the APTIMA COMBO2 Assay ([employer] The analytical performance characteristics of this assay, when used to test SurePath specimens have been determined by [facility]. 09/19/2018 2:11 PM EDT 09/19/2018 10:31 PM EDT Narrative Resulting Agency Comment [id number] Elizabeth Kim NP LABORATORY Final Result Performing Organization Address [facility] Co de Phone Number [facility] [address] [place] [address] * BV/VAGINITIS PANELDNA PROBE (09/19/2018 2:11 PM EDT) Trichomonas vaginalis rRNA (Genital) NOT DETECTED NOT DETECTED [facility] Gardnerella vaginalis rRNA (Genital) NOT DETECTED NOT DETECTED [facility] Yecenia sp rRNA (Vag) NOT DETECTED NOT DETECTED [facility] 09/19/2018 2:11 PM EDT 09/19/2018 10:31 PM EDT Narrative Resulting Agency Comment [id number] Elizabeth Kim SALAD MAKER LABORATORY Final Result Performing Organization Address [facility] de Phone Number [facility] [address] [place] [address] documented in this encounter Visit Diagnoses Diagnosis [...] documented as of this encounter Care Teams Valet Parker Relationship Specialty Start Date End Date Jose Mcguire MD PCP - General Internal Medicine 06/10/15 05/19/19 Vandana Pierce MD PCP - General Family Medicine 05/20/19 08/03/20 Norman Arita MD [address] [place] [address] PCP - General Internal Medicine 08/04/20 03/04/22 documented as of this encounter
--- OUTSIDE RECORDS SUMMARY | 2024-11-14 08:20 | XMS_ITS | Encounter Summary ---
Author Organization [facility] Address [address] [place] [address] Care Team Providers Care Thermite Welder Name Role Phone Jose Mcguire MD Primary Care Provider Vandana Vazquez MD Primary Care Provider [phone] Norman Arita MD Primary Care Provider [phone] Encounter Details Date Type Department Care Team (Late Contact Info) Description 03/29/2016 Orders Only [facility] [address] [place] [phone] Juli Boothe NP [address] [place] [address] Social History Tobacco Use Types Packs/Day Years [...] this encounter Procedures * Due to [place] [employer] law, this organization might not be sharing negative HIV tests. Procedure Name Priority Date/Time Associated Diagnosis Comments LIPID PANEL WITH REFLEX TO DIRECT LDL Routine 03/29/2016 11:48 AM EST Hyperlipidemia, unspecified hyperlipidemia type documented in this encounter Results * Due to [place] [employer] law, this organization might not be sharing [...] 5:49 PM EST Narrative Resulting Agency Comment [id number] Juli Boothe NP LABORATORY Final Result [facility] [address] [place] [address] documented in this encounter Visit Diagnoses Diagnosis [...] documented as of this encounter Care Teams Thermite Welder Relationship Specialty Start Date End Date Jose Mcguire MD PCP - General Internal Medicine 06/10/15 05/19/19 Vandana Pierce MD PCP - General Family Medicine 05/20/19 08/03/20 Norman Arita MD [address] [place] [address] PCP - General Internal Medicine 08/04/20 03/04/22 documented as of this encounter
--- OUTSIDE RECORDS SUMMARY | 2024-11-14 08:20 | XMS_ITS | Encounter Summary ---
Author Organization [facility] Address [address] [place] [address] Care Team Providers Care Territory Sales Professional Name Role Phone Jose Mcguire MD Primary Care Provider Gela Vandana Tovar MD Primary Care Provider [phone] Norman Arita MD Primary Care Provider [phone] Encounter Details Date Type Department Care Team (Late Contact Info) Description 12/13/2015 Orders Only [facility] [address] [place] [address] Jose Mcguire MD Social History Tobacco Use [...] (12/13/2015 9:58 AM EDT) COLOR (URINE) YELLOW [facility] (CLIA# [id number]) APPEARANCE (URINE) CLEAR [facility] (CLIA# [id number]) SPECIFIC GRAVITY 1.005 1.001 - 1.035 [facility] (CLIA# [id number]) PH (URINE) 7.0 5.0 - 8.0 [facility] (CLIA# [id number]) PROTEIN (URINE) NEGATIVE Neg [facility] (CLIA# [id number]) GLUCOSE (URINE) NEGATIVE Neg [facility] (CLIA# [id number]) Ketones (Urine) NEGATIVE Neg [facility] (CLIA# [id number]) BILIRUBIN (URINE) NEGATIVE Neg [facility] (CLIA# [id number]) BLOOD (URINE) NEGATIVE Neg [facility] (CLIA# [id number]) Leukocyte esterase (Urine) NEGATIVE [facility] (CLIA# [id number]) NITRITE (URINE) NEGATIVE Neg [facility] (CLIA# [id number]) Urine specimen (specimen) 12/13/2015 9:58 AM EDT Narrative [facility] (CLIA# [id number]) - 12/13/2015 10:00 AM EDT Micro and culture already ordered per provider. Jose Mcguire MD LAB SAME DAY RESULT Final Resul t [facility] (CLIA# [id number]) [address] [place] [address] * (ABNORMAL) CULTURE, URINE, ROUTINE (12/13/2015 9:47 AM EDT) Bacteria culture (Urine) SEE NOTE(A) [facility] Comment: {CULTURE, URINE, ROUTINE {[id number]) CULTURE, URINE, ROUTINE MICRO NUMBER: [id number] TEST STATUS: FINAL SPECIMEN SOURCE: URINE, CLEAN CATCH SPECIMEN QUALITY: ADEQUATE RESULT: 10,000-50,000 CFU/mL of Lactobacillus species May represent colonizers from external and internal genitalia. No further testing (including susceptibility) will be performed. 12/13/2015 9:47 AM EDT 12/13/2015 4:39 PM EDT Narrative Resulting Agency Comment [id number] Jose Mcguire MD LABORATORY Final Result Performing Organization Address City/[facility]/ZIP Co de Phone Number [facility] [address] [place] [address] * URINALYSIS, MICROSCOPIC (12/13/2015 9:47 AM EDT) WBC (Urine) NONE SEEN < OR = 5 /HPF [facility] Comment:{WBC {[id number]) RBC (Urine Sed) NONE SEEN < OR = 2 /HPF [facility] Comment:{RBC {[id number]) Epithelial cells.squamous (Urine sed) NONE SEEN < OR = 5 /HPF [facility] Comment:{SQUAMOUS EPITHELIAL CELLS {[id number]) Bacteria (Urine) NONE SEEN NONE SEEN /HPF [facility] Comment:{BACTERIA {[id number]) Hyaline casts (Urine sed) NONE SEEN NONE SEEN /LPF [facility] Comment:{HYALINE CAST {[id number]) 12/13/2015 9:47 AM EDT 12/13/2015 4:39 PM EDT Narrative Resulting Agency Comment [id number] Jose Mcguire MD LAB SAME DAY RESULT Final Resul t [facility] [address] [place] [address] documented in this encounter Visit Diagnoses Diagnosis [...] documented as of this encounter Care Teams Territory Sales Professional Relationship Specialty Start Date End Date Jose Mcguire MD PCP - General Internal Medicine 06/10/15 05/19/19 Vandana Pierce MD PCP - General Family Medicine 05/20/19 08/03/20 Norman Arita MD [address] [place] [address] PCP - General Internal Medicine 08/04/20 03/04/22 documented as of this encounter
--- OUTSIDE RECORDS SUMMARY | 2024-11-14 08:20 | XMS_ITS | Encounter Summary ---
Author Organization [facility] Address [address] [place] [address] Care Team Providers Care Extracorporeal Technician Name Role Phone Jose Mcguire MD Primary Care Provider Vandana Vazquez MD Primary Care Provider [phone] Norman Arita MD Primary Care Provider [phone] Encounter Details Date Type Department Care Team (Late st Contact Info) Description 09/18/2018 Orders Only [facility] [address] [place] [phone] Jose Mcguire MD Social History Tobacco Use [...] encounter Progress Notes * Jose Mcguire - 09/19/2018 7:50 PM EDT . documented in this encounter Plan of Treatment Not on file documented as of this encounter Procedures * Due to [place] [employer] law, this organization might not be sharing negative HIV tests. Procedure Name Priority Date/Time Associated Diagnosis Comments CULTURE, URINE, ROUTINE Routine 09/18/2018 4:52 PM EDT Frequency of urination URINALYSIS, COMPLETE INCLUDES DIPSTICK AND MICROSCOPIC Same Day Results 09/18/2018 4:52 PM EDT Frequency of urination documented in this encounter Results * Due to [place] [employer] law, this organization might not be sharing negative HIV tests. * CULTURE, URINE, ROUTINE (09/18/2018 4:52 PM EDT) Bacteria culture (Urine) SEE NOTE [facility] Comment: CULTURE, URINE, ROUTINE MICRO NUMBER: [id number] TEST STATUS: FINAL SPECIMEN SOURCE: URINE SPECIMEN QUALITY: ADEQUATE RESULT: No Growth 09/18/2018 4:52 PM EDT 09/18/2018 7:00 PM EDT Narrative Resulting Agency Comment [id number] Jose Mcguire MD LABORATORY Final Result Performing Organization Address City/State/[facility] Co de Phone Number [facility] [address] [place] [address] * URINALYSIS, COMPLETE INCLUDES DIPSTICK AND MICROSCOPIC [...] 7:00 PM EDT Narrative Resulting Agency Comment [id number] Jose Mcguire MD LAB SAME DAY RESULT Final Resul t [facility] [address] [place] [address] documented in this encounter Visit Diagnoses Diagnosis [...] documented as of this encounter Care Teams Extracorporeal Technician Relationship Specialty Start Date End Date Jose Mcguire MD PCP - General Internal Medicine 06/10/15 05/19/19 Vandana Pierce MD PCP - General Family Medicine 05/20/19 08/03/20 Norman Arita MD [address] [place] [address] PCP - General Internal Medicine 08/04/20 03/04/22 documented as of this encounter
--- OUTSIDE RECORDS SUMMARY | 2024-11-14 08:20 | XMS_ITS | Encounter Summary ---
Author Organization [facility] Address [address] [place] [address] Care Team Providers Care [employer] Freight Car Cleaner Name Role Phone Jose Mcguire MD Primary Care Provider Vandana Vazquez MD Primary Care Provider [phone] Norman Arita MD Primary Care Provider [phone] Reason for Visit * Reason Onset Date Comments Refill Request 02/23/2016 Encounter Details Date Type Department Care Team (Late st Contact Info) Description 02/23/2016 Refill [facility] [address] [place] [address] Osiris Sanchez MD [address] [place] [address] Refill Request Social History Tobacco Use Types [...] documented as of this encounter Care Teams [employer] Freight Car Cleaner Relationship Specialty Start Date End Date Jose Mcguire MD PCP - General Internal Medicine 06/10/15 05/19/19 Vandana Pierce MD PCP - General Family Medicine 05/20/19 08/03/20 Norman Arita MD [address] [place] [address] PCP - General Internal Medicine 08/04/20 03/04/22 documented as of this encounter
--- OUTSIDE RECORDS SUMMARY | 2024-11-14 08:21 | XMS_ITS | Encounter Summary ---
Author Organization [facility] Address [address] [place] [address] Care Team Providers Care Civil Engineering Intern Name Role Phone Osiris Sanchez MD Primary Care Provider [phone] Jose Mcguire MD Primary Care Provider Gela Vandana Tovar MD Primary Care Provider [phone] Norman Arita MD Primary Care Provider [phone] Reason for Visit * Reason Onset Date Comments Refill Request 07/01/2014 Encounter Details Date Type Department Care Team (Late st Contact Info) Description 07/01/2014 Refill [facility] [address] [place] [address] Codie Edmonds, KANDIS [address] [place] [address] Refill Request Social History Tobacco Use Types [...] 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
--- OUTSIDE RECORDS SUMMARY | 2024-11-14 08:21 | XMS_ITS | Encounter Summary ---
Author Organization [facility] Address [address] [place] [address] Care Team Providers Care Sheep And Wheat Farmer Name Role Phone Jose Mcguire MD Primary Care Provider Vandana Vazquez MD Primary Care Provider [phone] Norman Arita MD Primary Care Provider [phone] Encounter Details Date Type Department Care Team (Late st Contact Info) Description 12/10/2018 Orders Only [facility] [address] [place] [id number] Jose Mcguire MD Social History Tobacco Use [...] this encounter Procedures * Due to [place] [employer] law, this organization might not be sharing negative HIV tests. Procedure Name Priority Date/Time Associated Diagnosis Comments VENIPUNCTURE Routine 12/10/2018 9:29 AM EDT Hyperlipidemia, unspecified hyperlipidemia type documented in this encounter Results * Due to [place] [employer] law, this organization might not be sharing [...] LDL-C. Junior BASILIO et al. RASHI. 2013;310(19): 6057-4919 (http://education.kubo financiero/faq/FZF131) CHOL/HDL Ratio 4.9 <5.0 (calc) [facility] Cholesterol Non-HDL 147(H) <130 mg/dL (calc) [facility] Comment: For patients with diabetes plus 1 major ASCVD risk factor, treating to a non-HDL-C goal of <100 mg/dL (LDL-C of <70 mg/dL) is considered a therapeutic option. 12/10/2018 9:29 AM EDT 12/10/2018 11:49 AM EDT Narrative Resulting Agency Comment [id number] Jose Mcguire MD LABORATORY Final Result [facility] [address] [place] [address] documented in this encounter Visit Diagnoses Diagnosis [...] documented as of this encounter Care Teams Sheep And Wheat Farmer Relationship Specialty Start Date End Date Jose Mcguire MD PCP - General Internal Medicine 06/10/15 05/19/19 Vandana Pierce MD PCP - General Family Medicine 05/20/19 08/03/20 Norman Arita MD [address] [place] [address] PCP - General Internal Medicine 08/04/20 03/04/22 documented as of this encounter
--- OUTSIDE RECORDS SUMMARY | 2024-11-14 08:21 | XMS_ITS | Encounter Summary ---
Author Organization [facility] Address [address] [place] [address] Care Team Providers Care Tank Car Mechanic Name Role Phone Osiris Sanchez MD Primary Care Provider [phone] Jose Mcguire MD Primary Care Provider Gela Vandana Tovar MD Primary Care Provider [phone] Norman Arita MD Primary Care Provider [phone] Encounter Details Date Type Department Care Team (Late st Contact Info) Description 08/17/2014 Orders Only [facility] [address] [place] [phone] Osiris Sanchez MD [address] [place] [address] Social History Tobacco Use Types Packs/Day Years [...] Industry Job Start Date Job End Date [employer] Not on file Not on file Not on file documented as of this encounter Progress Notes * Osiris Sanchez - 08/24/2014 12:02 AM EDTQuick Note: I have reviewed the results. Will d/w patient at the upcoming appt.with me 09/01 documented in this encounter Plan of Treatment Not on file documented as of this encounter Procedures * Due to [facility] law, this organization might not be sharing negative HIV tests. Procedure Name Priority Date/Time Associated Diagnosis Comments THYROID CASCADING REFLEX Routine 08/17/2014 8:21 AM EDT Disorder of thyroid LIPID PANEL WITH REFLEX TO DIRECT LDL Routine 08/17/2014 8:21 AM EDT Hyperlipidemia documented in this encounter Results * Due to [place] [employer] law, this organization might not be sharing negative HIV tests. * THYROID CASCADING REFLEX (08/17/2014 8:21 AM EDT) TSH 2.13 mIU/L [facility] Comment: {TSH {[id number]) Reference Range > or = 20 Years 0.40-4.50 Ranges First trimester 0.26-2.66 Second trimester 0.55-2.73 Third trimester 0.43-2.91 INTERPRETATION SEE NOTE [facility] Comment: {INTERPRETATION {[id number]) TSH within normal range. Consistent with euthyroid patient. Interference from heterophilic antibodies (more common) or autoantibody (less common) should be considered when the TSH value does not fit the clinical picture. TSH with HAMA Treatment (test code 17341) or TSH Antibody (test code 00777) may help identify such interferences. 08/17/2014 8:21 AM EDT 08/17/2014 11:01 AM EDT Narrative Resulting Agency Comment [id number] Osiris Sanchez MD LABORATORY Final Result [facility] [address] [place] [address] * (ABNORMAL) LIPID PANEL WITH REFLEX TO DIRECT LDL (08/17/2014 8:21 AM EDT) Cholesterol 236(H) 125 - 200 mg/dL [facility] Comment:{CHOLESTEROL, TOTAL {[id number]) HDL Cholesterol 35(L) > OR = 46 mg/dL [facility] Comment:{HDL CHOLESTEROL {[id number]) Triglyceride 349(H) <150 mg/dL [facility] Comment:{TRIGLYCERIDES {[id number]) LDL Cholesterol 131(H) <130 mg/dL (calc) [facility] Comment: {LDL-CHOLESTEROL {[id number]) Desirable range <100 mg/dL for patients with CHD or diabetes and <70 mg/dL for diabetic patients with known heart disease. CHOL/HDL Ratio 6.7(H) < OR = 5.0 (calc) [facility] Comment:{CHOL/HDLC RATIO {[id number]) Cholesterol Non-HDL 201(H) mg/dL (calc) [facility] Comment: {NON HDL CHOLESTEROL {[id number]) Target for non-HDL cholesterol is 30 mg/dL higher than LDL cholesterol target. 08/17/2014 8:21 AM EDT 08/17/2014 11:01 AM EDT Narrative Resulting Agency Comment [id number] Osiris Sanchez MD LABORATORY Final Result [facility] [address] [place] [address] documented in this encounter Visit Diagnoses Diagnosis [...] documented as of this encounter Care Teams Tank Car Mechanic Relationship Specialty Start Date End Date Osiris Sanchez MD [address] [place] [address] PCP - General 07/24/06 06/09/15 Jose Mcguire MD PCP - General Internal Medicine 06/10/15 05/19/19 Vandana Pierce MD PCP - General Family Medicine 05/20/19 08/03/20 Norman Arita MD [address] [place] [address] PCP - General Internal Medicine 08/04/20 03/04/22 documented as of this encounter
--- OUTSIDE RECORDS SUMMARY | 2024-11-14 08:21 | XMS_ITS | Encounter Summary ---
Author Organization [facility] Address [address] [place] [address] Care Team Providers Care Enterprise Systems Administrator Name Role Phone Osiris Sanchez MD Primary Care Provider [phone] Jose Mcguire MD Primary Care Provider Gela Vandana Tovar MD Primary Care Provider [phone] Norman Arita MD Primary Care Provider Encounter Details Date Type Department Care Team ([facility] st Contact Info) Description 06/16/[address] 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 Please send mail results and environmental control sheet. Thanks documented in this encounter Plan of Treatment Not on file documented as of this encounter Procedures * Due to [employer] law, this organization might not be sharing negative HIV tests. Procedure Name Priority Date/Time Associated Diagnosis Comments [facility] Routine 06/16/2014 3:08 PM EDT Nasal congestion documented in this encounter Results * Due to [employer] law, this organization might not be sharing negative HIV tests. * (ABNORMAL) [facility] (06/16/2014 3:08 PM EDT) IgE 137(H) <HY=262 kU/L [facility] Comment:{IMMUNOGLOBULIN E {[id number]) Dayron Grass (G6) IgE <0.35 kU/L [facility] Comment:{DAYRON GRASS (G6) IGE {[id number]) Dayron Grass (G6) Class 0 [facility] Comment:{CLASS {[id number]) Odette Grass([facility] hospital[facility] Blue)(G8) IgE <0.35 kU/L [facility] Comment:{ODETTE GRASS([facility] [employer] BLUE) (G8) IGE {[id number]) Odette Grass([place] Blue)(G8) Class 0 [facility] Comment:{CLASS {[id number]) Common Ragweed (Short)(W1) IgE 1.30(H) kU/L [facility] Comment:{COMMON RAGWEED (ÁNGELA RT) (W1) IGE {[id number]) Common Ragweed (Short)(W1) Class 2 [facility] Comment:{CLASS {[id number]) Kyrgyz Plantain (W9) IgE <0.35 kU/L [facility] Comment:{TUNISIAN PLANTAIN (W 9) IGE {[id number]) Kyrgyz Plantain (W9) Class 0 [facility] Comment:{CLASS {[id number]) Elaine's Quarters (Goosefoot) (W10) IgE <0.35 kU/L [facility] Comment:{ELAINE'S QUARTERS (GO OSE FOOT) (W10) IGE {[id number]) Elaine's Quarters (Goosefoot) (W10) Class 0 [facility] Comment:{CLASS {[id number]) Charlotte (T7) IgE 0.76(H) kU/L [facility] Comment:{OAK (T7) IGE {[id number]) [place] (T7) Class 2 [facility] Comment:{CLASS {[id number]) Cat Dander (E1) IgE <0.35 kU/L [facility] Comment:{CAT DANDER (E1) IGE {[id number]) Cat Dander (E1) Class 0 [facility] Comment:{CLASS {[id number]) Dog Dander (E5) IgE <0.35 kU/L [facility] Comment:{DOG DANDER (E5) IGE {[id number]) Dog Dander (E5) Class 0 [facility] Comment:{CLASS {[id number]) Cladosporium Herbarum (M2) IgE <0.35 kU/L [facility] Comment:{CLADOSPORIUM HERBAR UM (M2) IGE {[id number]) Cladosporium Herbarum(M2) Class 0 [facility] Comment:{CLASS {[id number]) Alternaria Alternata (M6) IgE <0.35 kU/L [facility] Comment:{ALTERNARIA ALTERNAT A (M6) IGE {[id number]) Alternaria Alternata (M6) Class 0 [facility] Comment:{CLASS {[id number]) House Dust (Uzma-Elly) (H2) IgE <0.35 kU/L [facility] Comment:{HOUSE DUST (HOLLIST ER- ELLY) (H2) IGE {[id number]) House Dust ([place]-Elly) (H2) Class 0 [facility] Comment:{CLASS {[id number]) Dermatophagoides Farinae(D2) IgE 1.37(H) kU/L [facility] Comment:{DERMATOPHAGOIDES FA RINAE (D2) IGE {[id number]) Dermatophagoides Farinae(D2) Class 2 [facility] Comment:{CLASS {[id number]) 06/16/2014 3:08 PM EDT 06/16/2014 7:13 PM EDT Ashok Méndez MD LABORATORY Final Result Performing Organization Address City/State/[facility] Co de Phone Number [facility] [address] [place] [address] documented in this encounter Visit Diagnoses Diagnosis [...] as of this encounter Care Teams Enterprise Systems Administrator Relationship Specialty Start Date End Date Osiris Sanchez MD [address] [place] [address] PCP - General 07/24/06 06/09/15 Jose Mcguire MD PCP - General Internal Medicine 06/10/15 05/19/19 Vandana Pierce MD PCP - General Family Medicine 05/20/19 08/03/20 Norman Arita MD [address] [place] [address] PCP - General Internal Medicine 08/04/20 03/04/22 documented as of this encounter
== END 2024-11-14 08:05 | disposition home or self-care (01) ==
LOC: HO.US 08:04
PROVIDERS: PCP Internal Medicine; Visit Provider Internal Medicine
DX: K75.81 Nonalcoholic steatohepatitis (NASH) (principal)
CPT/HCPCS: 76700; 76981

== ENCOUNTER → 2024-11-14 08:06 | Outpatient (BNV) | payer MEDICAID, SELFPAY | PROVIDERS: PCP Internal Medicine; Visit Provider Radiology Diagnostic Radiology | DX: K75.81 Nonalcoholic steatohepatitis (NASH) (principal) | CPT/HCPCS: 76700 ==